=== PATIENT | male | born 1970 | race Caucasian/White ===

== ENCOUNTER → 2016-08-21 | Outpatient (CLI) | payer MEDICARE, OTHER ==
[~2016-08-21] MED LIST: /DOXE100CA PO; /DULO30CA PO; /HCTZ25TA PO; AMBI10TA OR; AMBI12.52 PO; AMIT10TA2 OR; ARTHROTEC PO; ATEN25TA PO; ATEN50TA2 PO; BUSP5TA GT; CLON0.5T PO; COLA100C2 OR; DILA2TAB PO; DOCU100C PO; DULO1CAP2 PO; FLECTOR1.3 TOP; GABA-279 PO; GABA300C3 PO; HYDR25T PO; HYDR4TAB PO; LIDO1OIN2 TOP; LIDO5DIS TOP; LISI20TA PO; LISI20TA5 OR; LISI40TAB PO; LUNE2TAB OR; METH5TAB2 OR; NEUR300C PO; NORV5TAB PO; OXYC10TA12 PO; OXYC5TAB2 PO; REST15CA PO; ROBA750T4 PO; SM I100T PO; SPIR25TA2 PO; TRAM50TA2 PO; TRAZ50TA OR; VICO5TAB PO; VIST50CA PO; VOLT1GEL24 TD; VOLTAREN GEL TOP; ZOLP10TA2 PO; ZOLP12.515 PO; [UNRECOGNIZED DRUG - CODE] PO; [UNRECOGNIZED DRUG - CODE] PO; endocet PO
--- NOTE | 2016-08-22 08:46 | REP ---
Partial lumbar spine series: 25 views. History: Dorsal column stimulator battery placement, lead placement. 20 seconds of fluoroscopy time is reported. Findings: A sequence of 25 fluoroscopically obtained intraprocedural spot radiographs of the lumbar, thoracic and cervical spine document dorsal column stimulator lead placement. Signed by Juan Carlos Parker MD 08/22/2016 10:39 A
--- NOTE | 2016-08-25 01:23 | ECWPNPC ---
PATIENT NAME: WARREN SANTOS : 1970 GENDER: MALE VISIT DATE: 08/21/2016 DISCHARGE DATE: 08/21/16 0845 VISIT LOCKED DATE TIME: PHYSICIAN: MICHAEL MODI RESOURCE: MICHAEL MODI REASON FOR APPOINTMENT 1. STUDY UNDER FLUORO FOR LOCATION OF BATTERY. HISTORY OF PRESENT ILLNESS HISTORY OF PRESENT ILLNESS: PAIN THE PATIENT DESCRIBES THE PAIN... FALL RISK SCREENING: SCREENING :TWO OR MORE FALLS WITH INJURY IN THE PAST YEAR CURRENT MEDICATIONS TAKING CLONAZEPAM 0.5 MG TABLET 1 -2 TABLET ORALLY Q 6 HRS PRN ANXIETY MDD=3, NOTES: TAKING MAX 3 TABS DAILY TAKING VOLTAREN 1 % GEL ONE APPLICATION EXTERNALLY QID TO RIGHT UPPER EXTREMITY TAKING LIDOCAINE 5 % OINTMENT 1 APPLICATION TO AFFECTED AREA NEEDED EXTERNALLY THREE TIMES A DAY TAKING MELATONIN 3 MG TABLET 3 TABLET AT BEDTIME NEEDED WITH FOOD ORALLY ONCE A DAY TAKING GABAPENTIN 300 MG TABLET 1 CAPSULE ORALLY THREE TIMES A DAY TAKING COLACE 100 MG CAPSULE 2 CAPSULE NEEDED ORALLY BID TAKING AMLODIPINE BESYLATE 5 MG TABLET 2 TABLETS ORALLY ONCE A DAY TAKING VISTARIL 25 MG CAPSULE 1 CAPSULE ORALLY EVERY6 HRS PRN ANXIETY MDD=4, NOTES: TAKING MAX 3 DAILY TAKING ZOLPIDEM TARTRATE 10 MG TABLET 1 TABLET AT BEDTIME NEEDED ORALLY AT BEDTIME MDD=1 TAKING ATENOLOL 50 MG TABLET 1 TABLET ORALLY ONCE A DAY TAKING HYDROMORPHONE HCL 4 MG TABLET 1 TABLET ORALLY TAKE ONE TAB Q 6 HRS PRN PAIN MDD=3DD= TAKING OXYCODONE HCL 15 MG TABLET 1-2 TABLET ORALLY EVERY 4 HOURS PRN PAIN MDD=4 TAKING CYMBALTA 30 MG CAPSULE DELAYED RELEASE PARTICLES 1 CAPSULE ORALLY TID MEDICATION LIST REVIEWED AND RECONCILED WITH THE PATIENT PAST MEDICAL HISTORY HTN ANXIETY REFLEX SYMPATHETIC DYSTROPHY/COMPLEX REGIONAL PAIN SYNDROME RIGHT UPPER EXTREMITY SPINAL STENOSIS- LUMBAR ALLERGIES BUSPIRONE HCL: FACIAL RASH, SWELLING, HIVES: ALLERGY SURGICAL HISTORY LAMINECTOMY/DISCECTOMY L1-S1 04/2015 DCS 07/2011 INGUINAL HERNIA REPAIR GROIN LYMPH NODE EXCISION RIGHT HAND- SCREWS/PLATE 2001 ARTHROSCOPIC KNEE SURGERY DENTAL EXTRACTIONS SOCIAL HISTORY GENERAL: TOBACCO USE ARE YOU A:CURRENT SMOKER 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 NEW PATIENT PAIN DIARY TODAY'S VISITNOTES FROM 0-10, WHAT LEVEL IS YOUR PAIN TODAY?0 PAIN CLINIC PFS, CLERGY, PUBLIC HEALTH REFERRALS PFS REFERRAL NEEDED?NO CLERGY REFERRAL NEEDED?NO PUBLIC HEALTH REFERRAL NEEDED?NO WAS THE PROVIDER NOTIFIED OF ANY PERTINENT INFO?NO PFS REFERRAL NEEDED?NO CLERGY REFERRAL NEEDED?NO PUBLIC HEALTH REFERRAL NEEDED?NO WAS THE PROVIDER NOTIFIED OF ANY PERTINENT INFO?NO HOSPITALIZATION/MAJOR DIAGNOSTIC PROCEDURE SURGERIES ACUTE RENAL FAILURE 03/2016 REVIEW OF SYSTEMS CONSTITUTIONAL: ANY CHANGE IN YOUR MEDICAL CONDITION? YES, LEG PAIN AND NUMBNESS WORSE . CHILLS NO . FEVER NO . INFECTION: DO YOU HAVE NEW INFECTIONS? NO . DO YOU HAVE HISTORY OF MRSA? NO . MUSCULOSKELETAL: ANY NEW PATTERNS OF PAIN OR NUMBNESS? YES, LEG PAIN AND NUMBNESS AND WORSE . GASTROENTEROLOGY: ANY NEW CHANGE IN BOWEL CONTROL? NO . GENITOURINARY: ANY NEW CHANGE IN BLADDER CONTROL? NO . IS THERE A CHANCE YOU COULD BE ? NO . HEMATOLOGY/LYMPH: DO YOU TAKE ANY BLOOD THINNERS? (FOR EXAMPLE- COUMADIN, PLAVIX, AGGRENOX, PLATEL, PRADAXA, OR XARELTO) NO . WHEN WAS YOUR LAST DOSE? DATE: TIME: . NEUROLOGY: HAVE YOU FALLEN IN THE PAST 6 MONTHS? NO . ANY NEW EXTREMITY NUMBNESS OR WEAKNESS? NO . CARDIOLOGY: DO YOU HAVE A PACEMAKER OR DEFIBRILLATOR? NO . RESPIRATORY: HAVE YOU BEEN SICK IN THE PAST WEEK? NO . FEVER NO . FLU LIKE SYMPTOMS? NO . COUGH NO . INTEGUMENTARY: DO YOU HAVE ANY RASHES OR OPEN SORES? NO . ALLERGIC/IMMUNO: ARE YOU ALLERGIC TO SHELLFISH OR IV DYE? NO . ANY NEW ALLERGIES? NO . PSYCHIATRIC: DO YOU HAVE THOUGHTS OF HURTING YOURSELF OR SOMEONE ELSE? NO . ARE YOU ABUSED, NEGLECTED, OR IN AN UNSAFE ENVIRONMENT? NO . ENDOCRINOLOGY: ARE YOU DIABETIC? NO . OTHER: DO YOU NEED ANY PRESCRIPTIONS? YES . IF YES, PLEASE LIST: ____ . ANY NEW PROBLEMS WITH YOUR MEDICATIONS? NO . WHEN DID YOU LAST EAT? ____ . WHEN DID YOU LAST DRINK? ____ . WHAT DID YOU LAST DRINK? ____ . NAME OF PERSON DRIVING YOU HOME? ____ . DO YOU HAVE ANY OTHER QUESTIONS OR CONCERNS NO . REVIEWED BY: PROVIDER: . VITAL SIGNS WT 285 LBS, HT 69 IN, BMI 42.08 INDEX, BP 121/75 MM HG, HR 65 /MIN, RR 18 /MIN, TEMP 95.8 F, OXYGEN SAT % 97%, NA INITIALS SC 15:41, REVIEWED BY: MILAGRO. ASSESSMENTS POSTLAMINECTOMY SYNDROME, NOT ELSEWHERE CLASSIFIED - M96.1 (PRIMARY) PROCEDURES PRE-PROCEDURE DIAGNOSIS: POST LAMINECTOMY PAIN SYNDROMEPOST-PROCEDURE DIAGNOSIS: POST LAMINECTOMY PAIN SYNDROMEPROCEDURE: SPINAL COLUMN STIMULATOR STUDY UNDER FLUOROSCOPY SURGEON: DIANA DURONTHESIA: NONECOMPLICATIONS: NONEPRE-PROCEDURE NOTE: 45 YEAR OLD MALE PATIENT WITH HISTORY OF CHRONIC PAIN IN THE LOW BACK AREA. PATIENT CURRENTLY HAS A DORSAL COLUMN STIMULATOR BATTERY AND LEAD PLACEMENT TO HELP WITH HIS PAIN IN HIS RIGHT UPPER EXTREMITY. WITH THE PLAN FOR ANOTHER DORSAL COLUMN STIMULATOR BATTERY AND LEAD PLACEMENT FOR THE PATIENT'S LOW BACK PAIN, I NEED TO EVALUATE THE SPACE OF THE SPINE AND DETERMINE THE OPTIONS TO PROCEED FORWARD. I WENT OVER THE RISK, ALTERNATIVES, AND BENEFITS ASSOCIATED WITH THIS PROCEDURE.PROCEDURE NOTE: THE PATIENT WAS BROUGHT TO THE PROCEDURE ROOM AND PLACED IN THE PRONE POSITION ON THE TABLE. 25 FILMS DONE A-P LATERALLY INDICATES DORSAL COLUMN LEADS ENTER THE SPINE AT T12-L1. DISTAL CONTACTS OF THE LEADS ARE AT THE CERVICAL SPINE. WITH THE DORSAL COLUMN STIMULATOR BATTERY LOCATED IN THE LOW LEFT LUMBAR POSTERIOR AREA. POST-PROCEDURE NOTE: A SEQUENCE OF 25 FLUOROSCOPICALLY OBTAINED INTRAPROCEDURAL SPOT RADIOGRAPHS OF THE LUMBAR, THORACIC AND CERVICAL SPINE DOCUMENT DORSAL COLUMN STIMULATOR LEAD AND BATTERY PLACEMENT. FILMS HAVE BEEN PROCESSED AND SAVED INTO THE PATIENT'S MEDICAL RECORDS. I WILL NEED TO COORDINATE WITH THE PATIENT'S SURGEON TO DETERMINE THE OPTIONS AND ALTERNATIVES ON HOW TO PROCEED WITH THE DORSAL COLUMN STIMULATOR TRIAL AND PERMANENT SURGERY. DIAGNOSTIC IMAGING [facility] FLUORO GUIDANCE (PAIN)[id number] FOLLOW UP 2 WEEKS ELECTRONICALLY SIGNED BY MICHAEL MODI MD ON 08/24/2016 AT 05:43 PM EST DISCLAIMER : THIS IS A VISIT SUMMARY EXTRACTED FROM THE [email or web address] CHART. IT IS NOT A COPY OF THE [email or web address] PROGRESS NOTE. IMMANUEL
== END ==
LOC: M PAIN 15:20
PROVIDERS: ATTEND Anesthesiology
DX: G89.29 Other chronic pain (principal); Z96.89 Presence of other specified functional implants; M96.1 Postlaminectomy syndrome, not elsewhere classified; I10 Essential (primary) hypertension; F32.9 Major depressive disorder, single episode, unspecified; M48.06 Spinal stenosis, lumbar region; G90.511 Complex regional pain syndrome I of right upper limb; F17.200 Nicotine dependence, unspecified, uncomplicated; Z88.8 Allergy status to other drugs, medicaments and biological substances; Z79.891 Long term (current) use of opiate analgesic; Z79.899 Other long term (current) drug therapy

== ENCOUNTER 2016-09-05 17:03 | Emergency (ER) | payer MEDICARE, OTHER ==
[2016-09-05] MEDS ORDERED: ASPIRIN 81 MG CHEW TABLET As Ordered ONE (17:23)
[2016-09-05 17:28] LABS: BASO # 0.2 K/mm3 (0.0-0.2); BASO % 1.3 % (0.0-1.0); EOS # 0.4 K/mm3 (0.0-0.50); EOS % 3.2 % (0.0-3.0); LARGE UNSTAINED CELL # 0.2 K/mm3 (0.0-0.4); LARGE UNSTAINED CELL % 1.6 % (0.0-4.0); LYMPH # 3.5 K/mm3 (1.5-4.5); MEAN CORPUSCULAR HEMOGLOBIN 27.2 pg (27.0-33.0); MEAN CORPUSCULAR HGB CONC 33.4 g/dl (32.0-36.5); MEAN CORPUSCULAR VOLUME 81.4 fl (80.0-96.0); MONO # 0.5 K/mm3 (0.0-0.8); MONO % 4.3 % (0.0-5.0); NEUTROPHILS % 60.5 % (36.0-66.0); PLATELET COUNT, AUTOMATED 293 k/mm3 (150-450); RED CELL DISTRIBUTION WIDTH 14.4 % (11.5-14.5); WHITE BLOOD COUNT 11.5 K/mm3 (4.0-10.0)
[2016-09-05] MEDS ORDERED: MORPHINE 2 MG/ML 1ML SYRINGE As Ordered ONE (17:40)
--- NOTE | 2016-09-05 18:06 | REP ---
Chest x-ray: Two views. History: Chest pain. Findings: A dorsal column stimulator is seen in the thoracic spine terminating in the cervical spine. The lungs are symmetrically aerated and clear. Pleural angles are sharp. Heart size is normal. Pulmonary vasculature is not increased. No significant bony abnormality is seen. Impression: Dorsal column stimulator seen terminating in the cervical spine. No active disease. Signed by Juan Carlos Parker MD 09/05/2016 06:41 P
[2016-09-05 18:42] LABS: ALBUMIN 3.9 GM/DL (3.2-5.2); ALBUMIN/GLOBULIN RATIO 0.95 (1.00-1.93); ALKALINE PHOSPHATASE 70 U/L (45-117); ALT/SGPT 27 U/L (12-78); ANION GAP 9 MEQ/L (8-16); AST/SGOT 16 U/L (15-37); BILIRUBIN,DIRECT 0.1 MG/DL (0.0-0.2); BILIRUBIN,TOTAL 0.3 MG/DL (0.2-1.0); BLOOD UREA NITROGEN 20 MG/DL (7-18); CARBON DIOXIDE LEVEL 25 MEQ/L (21-32); CHLORIDE LEVEL 105 MEQ/L (98-107); CREATININE FOR GFR 0.98 MG/DL (0.70-1.30); GLOMERULAR FILTRATION RATE > 60.0 (>60); GLUCOSE, FASTING 92 MG/DL (70-105); SODIUM LEVEL 139 MEQ/L (136-145)
[2016-09-05] MEDS ORDERED: ISOVUE-370 76% 100ML VIAL (Q9967) As Ordered ONE (18:46)
--- NOTE | 2016-09-05 19:50 | REPUSA ---
CLINICAL HISTORY: CP, exclude PE. TECHNIQUE: Multiple incremental axial, coronal and oblique images are obtained from the thoracic inle t to the upper abdomen. Intravenous contrast material was administered as per pulmonary embolism prot ocol. COMMENTS: Mild biapical emphysema is seen. There is excellent opacification of pulmonary arterial system without evidence for pulmonary embolism . Aorta is of normal caliber without evidence for dissection or aneurysm. There is no evidence of pleural or parenchymal mass. There are no pleural effusions. There is nonspe cific bilateral hilar adenopathy seen, likely reactive process. There is no evidence of bulky hilar or mediastinal lymphadenopathy. The heart and great vessels are within normal limits. Images of the upper abdomen demonstrate no evidence of adrenal mass. The bony structures are free of lytic or blastic lesions. IMPRESSION: Emphysema. No evidence for pulmonary embolism. Nonspecific bilateral hilar adenopathy seen, likely reactive process. Thank you for your kind referral of this patient.
--- NOTE | 2016-09-05 20:00 | REPUSA ---
CLINICAL HISTORY: Abdominal pain. TECHNIQUE: Multiple axial, sagittal and coronal CT images were obtained through the abdomen and pelvi s after administration of intravenous contrast material. COMMENTS: The liver is of uniform attenuation without mass or defect. There is no intra or extrahepatic biliary ductal dilatation. The spleen is normal. The gallbladder is within normal limits. The pancreas is of normal contour and attenuation characteristics. There is no evidence of adrenal mass. Both kidneys demonstrate prompt and equal nephrograms. The kidneys are normal in size, shape and conf iguration. There is no evidence of renal or ureteral mass. No renal or ureteral calculi are identifie d. There is no hydroureter or hydronephrosis. No evidence for appendicitis. There is no bowel wall thickening. No evidence for small or large sadaf l obstruction. There is no evidence of abdominal ascites or lymphadenopathy. There is no evidence of intrinsic or extrinsic bladder mass. There is no pelvic ascites or lymphadeno ariel. Images of the lung bases show no evidence of pleural or parenchymal mass. There are no pleural effusi ons. The bony structures are free of lytic or blastic lesions. Intraspinal catheter is noted with leads t erminating at the thoracic levels. IMPRESSION: No evidence of acute abdominal or pelvic pathology. Thank you for your kind referral of this patient.
--- NOTE | 2016-09-05 20:29 | EDDOCDS ---
Physician Documentation [facility] Name: José Miguel Vasquez Age: 45 yrs Sex: Male : 1970 Arrival Date: 09/05/2016 Time: 17:03 Bed 9 Private MD: Vimal Harry Disposition: 09/05 20:09 Critical Care: Critical care not applicable. pc Disposition: 09/05/16 20:16 Discharged to Home/Self Care. Impression: Chest pain, unspecified - labs, EKG and CTs nondiagnostic, Complex regional pain syndrome I, unspecified. - Condition is Stable. - Discharge Instructions: Nonspecific Chest Pain. - Medication Reconciliation, Local Pharmacy Hours form. - Follow up: Vimal Harry MD; When: Call to arrange an appointment; Reason: Continuance of care. Follow up: Michele Olson; When: As previously arranged; Reason: Continuance of care. Follow up: Kirill Apple MD; When: Call to arrange an appointment; Reason: Further diagnostic work-up, To establish care. - Problem is new. - Symptoms have improved. Historical: - Allergies: BuSpar; - Home Meds: 1. atenolol 50 mg Oral tab 1 tab once daily 2. hydromorphone 4 mg Oral tab 1 tab every 6 hours 3. oxycodone 15 mg Oral tab 1 tab every 4 hours as needed 4. Cymbalta 30 mg Oral cpDR three times a day 5. zolpidem 10 mg Oral tab 1 tab once daily 6. gabapentin 300 mg Oral cap 1 cap 3 times per day 7. Colace 100 mg oral cap 2 caps 2 times per day 8. amlodipine 5 mg Oral tab 2 tabs once daily 9. Vistaril 25 mg Oral cap 1 cap every 6 hours as needed 10. Voltaren 1 % topical gel 4 times per day 11. lidocaine 5 % Topical oint four times a day - PMHx: Chronic Low Back Pain; complex regional pain syndrome; Hypertension; RSD; - PSHx: Orthopedic Surgery; Laminectomy. lumbar; - Social history: Smoking status: Patient uses tobacco products, heavy tobacco smoker. No barriers to communication noted, The patient speaks fluent Tajik, Speaks appropriately for age. - Family history: Not pertinent. - : The pt / caregiver states he / she is not on anticoagulants. Home medication list is obtained from the patient. - Exposure Risk Screening:: None identified. Vital Signs: 17:05 BP 162 / 87; Pulse 62; Resp 18 S; Temp 98.1(O); Pulse Ox 99% on R/A; Weight 127.01 kg / gr2 280.01 lbs (R); Height 5 ft. 10 in. (177.80 cm) (R); Pain 7/10; 17:22 BP 224 / 105 (auto/); dsf 17:24 Pulse 56 MON; Pulse Ox 95% ; dsf 17:27 BP 172 / 86 (auto/); dsf 17:27 Pulse 60 MON; Pulse Ox 97% ; dsf 17:37 BP 146 / 79 (auto/); dsf 17:37 Pulse 54 MON; Pulse Ox 98% ; dsf 17:52 BP 133 / 77 (auto/); dsf 17:55 Pulse 54 MON; Pulse Ox 95% ; dsf 18:07 BP 127 / 73 (auto/); dsf 18:08 Pulse 54 MON; Pulse Ox 93% ; dsf 18:10 Pain 7/10; dsf 18:22 BP 139 / 78 (auto/); dsf 18:23 Pulse 50 MON; Pulse Ox 94% ; dsf 18:37 BP 136 / 77 (auto/); dsf 18:38 Pulse 52 MON; Pulse Ox 92% ; dsf 19:07 BP 128 / 70 (auto/); Resp 18 S; af2 19:08 Pulse 52 MON; Pulse Ox 96% on R/A; af2 19:37 BP 131 / 82 (auto/); af2 19:38 Pulse 48 MON; Pulse Ox 95% ; af2 19:52 BP 141 / 81 (auto/); af2 19:53 Pulse 48 MON; Pulse Ox 95% ; af2 20:07 BP 137 / 87 (auto/); af2 20:08 Pulse 48 MON; Resp 18 S; Temp 97.6(O); Pulse Ox 97% on R/A; af2 17:05 Body Mass Index 40.18 (127.01 kg, 177.80 cm) gr2 MDM: 17:12 Aspirin Chewable Tablet 324 mg PO once ordered. fg 17:12 Engineer Technician/Pulse Ox/q 30 min VS ordered. fg 17:12 IV Saline Lock ordered. fg 17:12 Rhythm Strip to chart ordered. fg 17:12 Undress patient appropriately for examination ordered. fg 17:12 ECG WITH READING ER PHYS+CARDIAG ordered. EDMS 17:13 B-Type Natiuretic Peptide Ordered. EDMS 17:13 Basic Metabolic Profile Ordered. EDMS 17:13 CBC with Diff Ordered. EDMS 17:13 Cardiac Injury Profile Ordered. EDMS 17:13 Troponin Ordered. EDMS 17:15 Chest, 2 View (pa\E\lat) Ordered. EDMS 17:32 morphine 2 mg IVP once ordered. fg 17:34 CT Chest Angio R/O PE Ordered. EDMS 17:34 CT ABD & PELVIS: IV Contrast Only Ordered. EDMS 17:49 LIPASE Ordered. EDMS 17:49 LIVER PROFILE Ordered. EDMS 19:16 Basic Metabolic Profile Reviewed. pc 19:16 CBC with Diff Reviewed. pc 19:16 LIVER PROFILE Reviewed. pc 19:16 B-Type Natiuretic Peptide Reviewed. pc 19:16 Cardiac Injury Profile Reviewed. pc 19:16 Troponin Reviewed. pc 19:16 LIPASE Reviewed. pc 19:16 Chest, 2 View (pa\E\lat) Reviewed. pc 19:39 Financial registration complete. zo 19:41 [facility] [place] Payment Agreement was scanned into [employer] and attached to record. zo 20:09 Test interpretation: interpreted by Radiologist and personally reviewed, Abdomen/Pelvis pc CT; no acute disease, Chest CT; no PE, reactive bilateral hilar adenopathy. The patient has been re-examined and re-evaluated. The patient's symptoms have mildly improved after treatment. Disposition: The historical points, examination findings, and any diagnostic results supporting the provided diagnosis, were discussed with the patient or legal guardian. The need for outpatient follow up with the provider listed on their discharge instructions was discussed. They were encouraged to return to [facility], or the nearest ED, if symptoms worsen/persist, or for any other questions/concerns. Administered Medications: 17:30 Drug: Aspirin 324 mg [aspirin 81 mg chewable tablet (4 tabs)] Route: PO; ms18 17:43 Drug: morphine 2 mg [morphine 2 mg/mL intravenous cartridge (1 mL)] Route: IVP; Site: dsf left antecubital; 18:10 Follow up: Pain 7/10 Adult; see charted VS dsf Signatures: Dispatcher [employer] EDMS Usama Palacios MD MD pc Barney, Michael B RN RN [id number] Mor Begum AmberRN RN af2 Kimmie Vogel MD MD fg Anika Singleton RN, Mallory RN [id number] The chart was reviewed and I authenticate all verbal orders and agree with the evaluation and treatment provided.Corrections: (The following items were deleted from the chart) 17:47 17:43 LIPASE+LAB ordered. EDMS EDMS 17:47 17:43 LIVER PROFILE+LAB ordered. EDMS EDMS Attachments: 19:41 [facility] [place] Payment Agreement zo [id number]
--- NOTE | 2016-09-05 20:29 | EDDOCDS ---
Nurse's Notes [facility] Name: José Miguel Vasquez Age: 45 yrs Sex: Male : 1970 Arrival Date: 09/05/2016 Time: 17:03 Bed 9 Private MD: Vimal Harry Diagnosis: Chest pain, unspecified-labs, EKG and CTs nondiagnostic;Complex regional pain syndrome I, unspecified Presentation: 09/05 17:10 Presenting complaint: Patient states: Swelling in legs left arm and back, chest mlb1 tightness diaphoresis and nausea began 8 days ago. No acute neurological deficit is noted. Pre-hospital glucose is not applicable to this patient. Adult Sepsis Screening: The patient does not have new or worsening altered mentation. Patient's respiratory rate is less than 22. Systolic blood pressure is greater than 100. Patient has a qSOFA score of 0- Negative Sepsis Screen. Suicide/Homicide risk assessment- the patient denies having any suicidal and/or homicidal ideations and does not present with any other emotional, behavioral or mental health complaints. Status: Patient is not a medical services manager or dependent. Transition of care: patient was not received from another setting of care. 17:10 Acuity: TODD Level 2 mlb1 17:10 Method Of Arrival: Walkin/Carried/Asstd mlb1 20:27 The last date and time the patient was known to be well was was at an unknown time on af2 an unknown date. Triage Assessment: 17:19 General: Appears in no apparent distress, Behavior is anxious, cooperative. Pain: mlb1 Location: chest Quality of pain is described as tightness Unable to use pain scale. Does not appear to understand pain scale. 20:28 The onset of the patients symptoms was at an unknown time. HIV screening NA for this af2 visit Offered previously. Neurological: Reports. Neurological: No deficits noted. 20:28 Neurological: Level of Consciousness is awake, alert. af2 Historical: - Allergies: BuSpar; - Home Meds: 1. atenolol 50 mg Oral tab 1 tab once daily 2. hydromorphone 4 mg Oral tab 1 tab every 6 hours 3. oxycodone 15 mg Oral tab 1 tab every 4 hours as needed 4. Cymbalta 30 mg Oral cpDR three times a day 5. zolpidem 10 mg Oral tab 1 tab once daily 6. gabapentin 300 mg Oral cap 1 cap 3 times per day 7. Colace 100 mg oral cap 2 caps 2 times per day 8. amlodipine 5 mg Oral tab 2 tabs once daily 9. Vistaril 25 mg Oral cap 1 cap every 6 hours as needed 10. Voltaren 1 % topical gel 4 times per day 11. lidocaine 5 % Topical oint four times a day - PMHx: Chronic Low Back Pain; complex regional pain syndrome; Hypertension; RSD; - PSHx: Orthopedic Surgery; Laminectomy. lumbar; - Social history: Smoking status: Patient uses tobacco products, heavy tobacco smoker. No barriers to communication noted, The patient speaks fluent Singaporean, Speaks appropriately for age. - Family history: Not pertinent. - : The pt / caregiver states he / she is not on anticoagulants. Home medication list is obtained from the patient. - Exposure Risk Screening:: None identified. Screenin:24 Screening information is obtained from the patient. Fall risk: No risks identified. af2 Assistance ADL's: requires no assistance with activities of daily living. Abuse/DV Screen: The patient / caregiver reports he/she is: not in a situation that causes fear, pain or injury. Nutritional screening: No deficits noted. Advance Directives: Further advance directive information is declined. home support is adequate. Assessment: 17:43 General: Appears in no apparent distress, Behavior is appropriate for age, cooperative. dsf Pain: Location: back and right arm Pain currently is 7 out of 10 on a pain scale. Quality of pain is described as burning. Neurological: Level of Consciousness is awake, alert, Oriented to person, place, time. Cardiovascular: Capillary refill < 3 seconds Heart tones S1 S2 present Rhythm is sinus rhythm No ectopy. Chest pain is described as Pain is 3 out of 10 on a pain scale. quality is pressure, is located in substernal area radiates Does not radiate. Respiratory: Airway is patent Respiratory effort is even, unlabored, Respiratory pattern is regular, symmetrical, Breath sounds are clear bilaterally. GI: Abdomen is non- distended obese, Bowel sounds present X 4 quads. Abd is soft and non tender X 4 quads. Denies nausea, vomiting, pain. Derm: Skin is pink, warm & dry. Musculoskeletal: cloth sock over right forearm. 18:43 Adult Sepsis Screening: The patient does not have new or worsening altered mentation. dsf Patient's respiratory rate is less than 22. Systolic blood pressure is greater than 100. Patient has a qSOFA score of 0- Negative Sepsis Screen. General: Appears in no apparent distress, comfortable, Behavior is appropriate for age, cooperative. Pain: Location: right arm and back Pain currently is 7 out of 10 on a pain scale. Neurological: Level of Consciousness is awake, alert. Cardiovascular: Capillary refill < 3 seconds. Respiratory: Airway is patent Respiratory effort is even, unlabored, Respiratory pattern is regular, symmetrical. Derm: Skin is pink, warm & dry. 19:19 General: Appears in no apparent distress, comfortable, Behavior is appropriate for age, af2 cooperative. Pain: Location: right arm and back and chest Pain currently is 6 out of 10 on a pain scale. Neurological: Level of Consciousness is awake, alert, Oriented to person, place, time. Cardiovascular: Rhythm is sinus bradycardia. Respiratory: Airway is patent Respiratory effort is even, unlabored. Derm: Skin is pink, warm & dry. Vital Signs: 17:05 BP 162 / 87; Pulse 62; Resp 18 S; Temp 98.1(O); Pulse Ox 99% on R/A; Weight 127.01 kg gr2 (R); Height 5 ft. 10 in. (177.80 cm) (R); Pain 7/10; 17:22 BP 224 / 105 (auto/); dsf 17:24 Pulse 56 MON; Pulse Ox 95% ; dsf 17:27 BP 172 / 86 (auto/); dsf 17:27 Pulse 60 MON; Pulse Ox 97% ; dsf 17:37 BP 146 / 79 (auto/); dsf 17:37 Pulse 54 MON; Pulse Ox 98% ; dsf 17:52 BP 133 / 77 (auto/); dsf 17:55 Pulse 54 MON; Pulse Ox 95% ; dsf 18:07 BP 127 / 73 (auto/); dsf 18:08 Pulse 54 MON; Pulse Ox 93% ; dsf 18:10 Pain 7/10; dsf 18:22 BP 139 / 78 (auto/); dsf 18:23 Pulse 50 MON; Pulse Ox 94% ; dsf 18:37 BP 136 / 77 (auto/); dsf 18:38 Pulse 52 MON; Pulse Ox 92% ; dsf 19:07 BP 128 / 70 (auto/); Resp 18 S; af2 19:08 Pulse 52 MON; Pulse Ox 96% on R/A; af2 19:37 BP 131 / 82 (auto/); af2 19:38 Pulse 48 MON; Pulse Ox 95% ; af2 19:52 BP 141 / 81 (auto/); af2 19:53 Pulse 48 MON; Pulse Ox 95% ; af2 20:07 BP 137 / 87 (auto/); af2 20:08 Pulse 48 MON; Resp 18 S; Temp 97.6(O); Pulse Ox 97% on R/A; af2 17:05 Body Mass Index 40.18 (127.01 kg, 177.80 cm) gr2 Vitals: 17:05 Log In Time: September 05, 2016 at 17:05. RN notified that patient meets Red Flag gr2 criteria. 20:28 Glucose Measurement n/a. af2 ED Course: 17:04 Patient visited by Vinicio Monroy. gr2 17:04 Patient moved to Waiting gr2 17:05 Vimal Harry MD is Private Physician. gr2 17:07 Patient visited by Vinicio Monroy. gr2 17:07 Patient moved to Pre RCE gr2 17:10 Jenifer Flannery,RN is Primary Nurse. mlb1 17:10 Patient moved to 9 mlb1 17:11 Kimmie Vogel MD is Attending Physician. fg 17:12 Triage Initiated mlb1 17:20 Patient visited by Dino Blas RN. mlb1 17:21 EKG done. (by ED staff). Reviewed by Kimmie Vogel MD. jrd 17:22 Patient visited by Zachary Milian PCA. jrd 17:22 Primary Nurse role handed off by Jenifer Flannery RN [facility] 17:22 EKG done. (by ED staff). Reviewed by Kimmie Vogel MD. jrd 17:22 B-Type Natiuretic Peptide Sent. dsf 17:22 Basic Metabolic Profile Sent. dsf 17:22 CBC with Diff Sent. dsf 17:22 Cardiac Injury Profile Sent. dsf 17:22 Troponin Sent. dsf 17:22 Inserted saline lock: 18 gauge in left antecubital area The patient tolerated the dsf procedure well. 17:26 Patient visited by Zachary Milian PCA. jrd 17:31 Patient visited by Kimmie Vogel MD. fg 17:33 Patient moved to Radiology dsf 17:45 Patient visited by Anika Singleton,YANA. dsf 17:45 Patient moved to 9 dsf 18:12 Chest, 2 View (pa\E\lat) Returned. EDMS 18:45 Patient visited by Anika Singleton RN. dsf 18:[address] dsf 18:58 Patient moved to 9 dsf 19:01 Jenifer FlanneryRN is Primary Nurse. af2 19:01 Attending Physician role handed off by Kimmie Vogel MD pc 19:01 Usama Palacios MD is Attending Physician. pc 19:20 Patient visited by Jenifer Flannery RN. af2 19:41 [facility] [place] Payment Agreement was scanned into [employer] and attached to record. zo 19:56 Patient name changed from José Miguel\S\\S\Christina\S\ to José Miguel\S\ \S\Christina. EDMS 19:58 Patient visited by Jenifer Flannery RN. af2 20:00 Patient visited by Jenifer Flannery RN. af2 20:13 CT Chest Angio R/O PE Returned. EDMS 20:13 CT ABD & PELVIS: IV Contrast Only Returned. EDMS 20:15 Vimal Harry MD is Referral Physician. pc 20:15 Kirill Apple MD is Referral Physician. pc 20:15 Michele Olson is Referral Physician. pc 20:26 Discontinued IV lock intact, bleeding controlled, pressure dressing applied, No af2 redness/swelling at site. No procedures done that require assistance. 20:28 The patient / caregiver is instructed regarding the plan of care and ED course. af2 Administered Medications: 17:30 Drug: Aspirin 324 mg [aspirin 81 mg chewable tablet (4 tabs)] Route: PO; ms18 17:43 Drug: morphine 2 mg [morphine 2 mg/mL intravenous cartridge (1 mL)] Route: IVP; Site: dsf left antecubital; 18:10 Follow up: Pain 7/10 Adult; see charted VS dsf Intake: Order Results: Lab Order: B-Type Natiuretic Peptide; SPEC'M 09/05/16 17:19 Test: BRAIN NATRIURETIC PEPTIDE; Value: 28.9; Range: <100; Units: PG/ML; Status: F Lab Order: Basic Metabolic Profile; SPEC'M 09/05/16 17:54 Test: GLUCOSE, FASTING; Value: 92; Range: 70-105; Units: MG/DL; Status: F Test: BLOOD UREA NITROGEN; Value: 20; Range: 7-18; Abnormal: Above high normal; Units: MG/DL; Status: F Test: CREATININE FOR GFR; Value: 0.98; Range: 0.70-1.30; Units: MG/DL; Status: F Test: GLOMERULAR FILTRATION RATE; Value: > 60.0; Range: >60; Status: F Test: SODIUM LEVEL; Value: 139; Range: 136-145; Units: MEQ/L; Status: F Test: POTASSIUM SERUM; Value: 4.0; Range: 3.5-5.1; Units: MEQ/L; Status: F Test: CHLORIDE LEVEL; Value: 105; Range: 98-107; Units: MEQ/L; Status: F Test: CARBON DIOXIDE LEVEL; Value: 25; Range: 21-32; Units: MEQ/L; Status: F Test: ANION GAP; Value: 9; Range: 8-16; Units: MEQ/L; Status: F Test: CALCIUM LEVEL; Value: 9.0; Range: 8.5-10.1; Units: MG/DL; Status: F Test Note: ; Units are mL/min/1.73 m2 Chronic Kidney Disease Staging per NKF: Stage I & II GFR >=60 Normal to Mildly Decreased Stage III GFR 30-59 Moderately Decreased Stage IV GFR 15-29 Severely Decreased Stage V GFR <15 Very Little GFR Left ESRD GFR <15 on SIGNING AGENT Lab Order: CBC with Diff; SPEC'M 09/05/16 17:19 Test: WHITE BLOOD COUNT; Value: 11.5; Range: 4.0-10.0; Abnormal: Above high normal; Units: K/mm3; Status: F Test: RED BLOOD COUNT; Value: 5.91; Range: 4.30-6.10; Units: M/mm3; Status: F Test: HEMOGLOBIN; Value: 16.1; Range: 14.0-18.0; Units: g/dl; Status: F Test: HEMATOCRIT; Value: 48.1; Range: 42.0-52.0; Units: %; Status: F Test: MEAN CORPUSCULAR VOLUME; Value: 81.4; Range: 80.0-96.0; Units: fl; Status: F Test: MEAN CORPUSCULAR HEMOGLOBIN; Value: 27.2; Range: 27.0-33.0; Units: pg; Status: F Test: MEAN CORPUSCULAR HGB CONC; Value: 33.4; Range: 32.0-36.5; Units: g/dl; Status: F Test: RED CELL DISTRIBUTION WIDTH; Value: 14.4; Range: 11.5-14.5; Units: %; Status: F Test: PLATELET COUNT, AUTOMATED; Value: 293; Range: 150-450; Units: k/mm3; Status: F Test: NEUTROPHILS %; Value: 60.5; Range: 36.0-66.0; Units: %; Status: F Test: LYMPH %; Value: 29.0; Range: 24.0-44.0; Units: %; Status: F Test: MONO %; Value: 4.3; Range: 0.0-5.0; Units: %; Status: F Test: EOS %; Value: 3.2; Range: 0.0-3.0; Abnormal: Above high normal; Units: %; Status: F Test: BASO %; Value: 1.3; Range: 0.0-1.0; Abnormal: Above high normal; Units: %; Status: F Test: LARGE UNSTAINED CELL %; Value: 1.6; Range: 0.0-4.0; Units: %; Status: F Test: NEUTROPHILS #; Value: 7.0; Range: 1.8-7.7; Units: K/mm3; Status: F Test: LYMPH #; Value: 3.5; Range: 1.5-4.5; Units: K/mm3; Status: F Test: MONO #; Value: 0.5; Range: 0.0-0.8; Units: K/mm3; Status: F Test: EOS #; Value: 0.4; Range: 0.0-0.50; Units: K/mm3; Status: F Test: BASO #; Value: 0.2; Range: 0.0-0.2; Units: K/mm3; Status: F Test: LARGE UNSTAINED CELL #; Value: 0.2; Range: 0.0-0.4; Units: K/mm3; Status: F Lab Order: Cardiac Injury Profile; SPEC'M 09/05/16 17:54 Test: CPK CREATINE PHOSPHOKINASE; Value: 278; Range: 39-308; Units: U/L; Status: F Test: CK-MB VALUE MASS; Value: 2.9; Range: 0.0-3.6; Units: NG/ML; Status: F Test: MB/CK RELATIVE INDEX; Value: 1.04; Range: < OR =4; Status: F Test Note: ; DIAGNOSIS CRITERIA MMB ng/ml Relative Index (RI) NON-AMI < or = 5 N/A SINHA ZONE > 5 < or = 4 AMI > 5 > 4 Lab Order: Troponin; [facility] 09/05/16 17:54 Test: TROPONIN I; Value: < 0.02; Range: < 0.10; Units: NG/ML; Status: F Test Note: ; Troponin I Reference Interval for [place] LOCI: 99th Percentile= 0.00-0.045 ng/ml Risk Stratification: <= 0.10 ng/ml Decreased Risk for Adverse Clinical Events. 0.10-1.50 ng/ml Increased Risk for Adverse Clinical Events. Evaluation of additional criterion and/or repeat testing in 2-6 hours is suggested to rule out myocardial damage. >= 1.50 ng/ml Indicative of Myocardial Injury. Lab Order: LIPASE; SPEC'M 09/05/16 17:54 Test: LIPASE; Value: 321; Range: 73-393; Units: U/L; Status: F Lab Order: LIVER PROFILE; [facility] 09/05/16 17:54 Test: AST/SGOT; Value: 16; Range: 15-37; Units: U/L; Status: F Test: ALT/SGPT; Value: 27; Range: 12-78; Units: U/L; Status: F Test: ALKALINE PHOSPHATASE; Value: 70; Range: 45-117; Units: U/L; Status: F Test: BILIRUBIN,TOTAL; Value: 0.3; Range: 0.2-1.0; Units: MG/DL; Status: F Test: BILIRUBIN,DIRECT; Value: 0.1; Range: 0.0-0.2; Units: MG/DL; Status: F Test: TOTAL PROTEIN; Value: 8.0; Range: 6.4-8.2; Units: GM/DL; Status: F Test: ALBUMIN; Value: 3.9; Range: 3.2-5.2; Units: GM/DL; Status: F Test: ALBUMIN/GLOBULIN RATIO; Value: 0.95; Range: 1.00-1.93; Abnormal: Below low normal; Status: F Radiology Order: Chest, 2 View (pa\E\lat) Test: Chest, 2 View (pa\E\lat) REASON FOR EXAMINATION: Chest Pain; Chest x-ray: Two views.; ; History: Chest pain.; ; Findings: A dorsal column stimulator is seen in the thoracic spine terminating; in the cervical spine. The lungs are symmetrically aerated and clear. Pleural; angles are sharp. Heart size is normal. Pulmonary vasculature is not increased.; No significant bony abnormality is seen.; ; Impression:; ; Dorsal column stimulator seen terminating in the cervical spine. No active; disease.; ; ; Signed by; Juan Carlos Parker MD 09/05/2016 06:41 P; Radiology Order: CT Chest Angio R/O PE Test: CT Chest Angio R/O PE REASON FOR EXAMINATION: Chest Pain; ; CLINICAL HISTORY: CP, exclude PE.; TECHNIQUE: Multiple incremental axial, coronal and oblique images are obtained from the thoracic inle; t to the upper abdomen. Intravenous contrast material was administered as per pulmonary embolism prot; ocol.; COMMENTS:; Mild biapical emphysema is seen.; There is excellent opacification of pulmonary arterial system without evidence for pulmonary embolism; . Aorta is of normal caliber without evidence for dissection or aneurysm.; There is no evidence of pleural or parenchymal mass. There are no pleural effusions. There is nonspe; cific bilateral hilar adenopathy seen, likely reactive process. There is no evidence of bulky hilar; or mediastinal lymphadenopathy. The heart and great vessels are within normal limits.; Images of the upper abdomen demonstrate no evidence of adrenal mass.; The bony structures are free of lytic or blastic lesions.; IMPRESSION:; Emphysema.; No evidence for pulmonary embolism.; Nonspecific bilateral hilar adenopathy seen, likely reactive process.; Thank you for your kind referral of this patient.; ; Radiology Order: CT ABD & PELVIS: IV Contrast Only Test: CT ABD & PELVIS: IV Contrast Only REASON FOR EXAMINATION: Abdomen Pain; ; CLINICAL HISTORY: Abdominal pain.; TECHNIQUE: Multiple axial, sagittal and coronal CT images were obtained through the abdomen and pelvi; s after administration of intravenous contrast material.; COMMENTS:; The liver is of uniform attenuation without mass or defect. There is no intra or extrahepatic biliary; ductal dilatation. The spleen is normal. The gallbladder is within normal limits. The pancreas is of; normal contour and attenuation characteristics. There is no evidence of adrenal mass.; Both kidneys demonstrate prompt and equal nephrograms. The kidneys are normal in size, shape and conf; iguration. There is no evidence of renal or ureteral mass. No renal or ureteral calculi are identifie; d. There is no hydroureter or hydronephrosis.; No evidence for appendicitis. There is no bowel wall thickening. No evidence for small or large sadaf; l obstruction. There is no evidence of abdominal ascites or lymphadenopathy.; There is no evidence of intrinsic or extrinsic bladder mass. There is no pelvic ascites or lymphadeno; ariel.; Images of the lung bases show no evidence of pleural or parenchymal mass. There are no pleural effusi; ons.; The bony structures are free of lytic or blastic lesions. Intraspinal catheter is noted with leads t; erminating at the thoracic levels.; IMPRESSION:; No evidence of acute abdominal or pelvic pathology.; Thank you for your kind referral of this patient.; ; Outcome: 20:16 Discharge ordered by Provider. pc 20:26 Discharge Assessment: Patient awake, alert and oriented x 3. No cognitive and/or af2 functional deficits noted. Patient verbalized understanding of disposition instructions. patient administered narcotics - yes. Pt provided with safe discharge. The following High Risk Discharge criteria are identified: None. Discharged to home ambulatory, with significant other. Condition: stable. Discharge instructions given to patient, Instructed on discharge instructions, follow up and referral plans. Demonstrated understanding of instructions, Pt was receptive of discharge instructions/ teaching. CT Study completed. Property :Personal belongings accompany Pt. 20:28 Patient left the ED. af2 Signatures: Dispatcher [employer] EDMS Usama Palacios MD MD pc Peters, Mary, RN RN Dino Sparrow, RN RN mlb1 Mor Begum Desiree,RN RN Vinicio Cottrell2 Carol Hamm,RN RN [id number] Zachary Milian, CASSANDRA FIRST AID TEACHER d Jenifer Flannery,RN RN af2 Kimmie Vogel MD MD fg AILEEND
--- NOTE | 2016-09-06 07:26 | ECGEPIP ---
Stationary ECG Study [facility] - ED Test Date: 2016-09-05 Pat Name: WARREN SANTOS Department: Room: - Gender: M Informatics Nurse Specialist: alberto : 1970 Requested By: PRIYANKA Traore Order Number: [id number] Reading MD: Griselda Villa Measurements Intervals [place] Rate: 54 P: 48 WI: 172 QRS: 57 QRSD: 102 T: 43 QT: 419 QTc: 398 Interpretive Statements SINUS BRADYCARDIA POSSIBLE RIGHT VENTRICULAR CONDUCTION DELAY EARLY REPOLARIZATION, CLINICAL CORRELATION SIMILAR 02/16/16 Electronically Signed On 09-06-2016 7:26:13 EST by Griselda Villa
--- NOTE | 2016-09-07 21:30 | EDDOCDS ---
Physician Documentation [facility] Name: José Miguel Vasquez Age: 45 yrs Sex: Male : 1970 Arrival Date: 09/05/2016 Time: 17:03 Bed 9 Private MD: Vimal Harry Disposition: 09/05 20:09 Critical Care: Critical care not applicable. pc Disposition: 09/05/16 20:16 Discharged to Home/Self Care. Impression: Chest pain, unspecified - labs, EKG and CTs nondiagnostic, Complex regional pain syndrome I, unspecified. - Condition is Stable. - Discharge Instructions: Nonspecific Chest Pain. - Medication Reconciliation, Local Pharmacy Hours form. - Follow up: Vimal Harry MD; When: Call to arrange an appointment; Reason: Continuance of care. Follow up: Michele Olson; When: As previously arranged; Reason: Continuance of care. Follow up: Kirill Apple MD; When: Call to arrange an appointment; Reason: Further diagnostic work-up, To establish care. - Problem is new. - Symptoms have improved. Historical: - Allergies: BuSpar; - Home Meds: 1. atenolol 50 mg Oral tab 1 tab once daily 2. hydromorphone 4 mg Oral tab 1 tab every 6 hours 3. oxycodone 15 mg Oral tab 1 tab every 4 hours as needed 4. Cymbalta 30 mg Oral cpDR three times a day 5. zolpidem 10 mg Oral tab 1 tab once daily 6. gabapentin 300 mg Oral cap 1 cap 3 times per day 7. Colace 100 mg oral cap 2 caps 2 times per day 8. amlodipine 5 mg Oral tab 2 tabs once daily 9. Vistaril 25 mg Oral cap 1 cap every 6 hours as needed 10. Voltaren 1 % topical gel 4 times per day 11. lidocaine 5 % Topical oint four times a day - PMHx: Chronic Low Back Pain; complex regional pain syndrome; Hypertension; RSD; - PSHx: Orthopedic Surgery; Laminectomy. lumbar; - Social history: Smoking status: Patient uses tobacco products, heavy tobacco smoker. No barriers to communication noted, The patient speaks fluent Hebrew, Speaks appropriately for age. - Family history: Not pertinent. - : The pt / caregiver states he / she is not on anticoagulants. Home medication list is obtained from the patient. - Exposure Risk Screening:: None identified. Vital Signs: 17:05 BP 162 / 87; Pulse 62; Resp 18 S; Temp 98.1(O); Pulse Ox 99% on R/A; Weight 127.01 kg / gr2 280.01 lbs (R); Height 5 ft. 10 in. (177.80 cm) (R); Pain 7/10; 17:22 BP 224 / 105 (auto/); dsf 17:24 Pulse 56 MON; Pulse Ox 95% ; dsf 17:27 BP 172 / 86 (auto/); dsf 17:27 Pulse 60 MON; Pulse Ox 97% ; dsf 17:37 BP 146 / 79 (auto/); dsf 17:37 Pulse 54 MON; Pulse Ox 98% ; dsf 17:52 BP 133 / 77 (auto/); dsf 17:55 Pulse 54 MON; Pulse Ox 95% ; dsf 18:07 BP 127 / 73 (auto/); dsf 18:08 Pulse 54 MON; Pulse Ox 93% ; dsf 18:10 Pain 7/10; dsf 18:22 BP 139 / 78 (auto/); dsf 18:23 Pulse 50 MON; Pulse Ox 94% ; dsf 18:37 BP 136 / 77 (auto/); dsf 18:38 Pulse 52 MON; Pulse Ox 92% ; dsf 19:07 BP 128 / 70 (auto/); Resp 18 S; af2 19:08 Pulse 52 MON; Pulse Ox 96% on R/A; af2 19:37 BP 131 / 82 (auto/); af2 19:38 Pulse 48 MON; Pulse Ox 95% ; af2 19:52 BP 141 / 81 (auto/); af2 19:53 Pulse 48 MON; Pulse Ox 95% ; af2 20:07 BP 137 / 87 (auto/); af2 20:08 Pulse 48 MON; Resp 18 S; Temp 97.6(O); Pulse Ox 97% on R/A; af2 17:05 Body Mass Index 40.18 (127.01 kg, 177.80 cm) gr2 MDM: 17:12 Aspirin Chewable Tablet 324 mg PO once ordered. 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 fg 17:12 IV Saline Lock ordered. fg 17:12 Rhythm Strip to chart ordered. fg 17:12 Undress patient appropriately for examination ordered. fg 17:12 ECG WITH READING ER PHYS+CARDIAG ordered. EDMS 17:13 B-Type Natiuretic Peptide Ordered. EDMS 17:13 Basic Metabolic Profile Ordered. EDMS 17:13 CBC with Diff Ordered. EDMS 17:13 Cardiac Injury Profile Ordered. EDMS 17:13 Troponin Ordered. EDMS 17:15 Chest, 2 View (pa\E\lat) Ordered. EDMS 17:32 morphine 2 mg IVP once ordered. fg 17:34 CT Chest Angio R/O PE Ordered. EDMS 17:34 CT ABD & PELVIS: IV Contrast Only Ordered. EDMS 17:49 LIPASE Ordered. EDMS 17:49 LIVER PROFILE Ordered. EDMS 19:16 Basic Metabolic Profile Reviewed. pc 19:16 CBC with Diff Reviewed. pc 19:16 LIVER PROFILE Reviewed. pc 19:16 B-Type Natiuretic Peptide Reviewed. pc 19:16 Cardiac Injury Profile Reviewed. pc 19:16 Troponin Reviewed. pc 19:16 LIPASE Reviewed. pc 19:16 Chest, 2 View (pa\E\lat) Reviewed. pc 19:39 Financial registration complete. zo 19:41 [facility] Payment Agreement was scanned into [employer] and attached to record. zo 20:09 Test interpretation: interpreted by Radiologist and personally reviewed, Abdomen/Pelvis pc CT; no acute disease, Chest CT; no PE, reactive bilateral hilar adenopathy. The patient has been re-examined and re-evaluated. The patient's symptoms have mildly improved after treatment. Disposition: The historical points, examination findings, and any diagnostic results supporting the provided diagnosis, were discussed with the patient or legal guardian. The need for outpatient follow up with the provider listed on their discharge instructions was discussed. They were encouraged to return to [facility], or the nearest ED, if symptoms worsen/persist, or for any other questions/concerns. 09/06 11:29 T-Sheet-- Draft Copy was scanned into [employer] and attached to record. gb 11:29 ECG/EKG was scanned into [employer] and attached to record. gb Administered Medications: 09/05 17:30 Drug: Aspirin 324 mg [aspirin 81 mg chewable tablet (4 tabs)] Route: PO; ms18 17:43 Drug: morphine 2 mg [morphine 2 mg/mL intravenous cartridge (1 mL)] Route: IVP; Site: dsf left antecubital; 18:10 Follow up: Pain 02/18 Adult; see charted VS dsf Signatures: Dispatcher [employer] EDMS Usama Palacios MD MD pc Eve Castellanos, Reg Reg gb Dino Blas RN RN mlb1 Mor Begum Amber, RN RN af2 Kimmie Vogel MD MD fg Fuller, Desiree RN dsf Carol Hamm RN ms18 The chart was reviewed and I authenticate all verbal orders and agree with the evaluation and treatment provided.Corrections: (The following items were deleted from the chart) 17:47 17:43 LIPASE+LAB ordered. EDMS EDMS 17:47 17:43 LIVER PROFILE+LAB ordered. EDMS EDMS Attachments: 19:41 [facility] Payment Agreement zo 09/06 11:29 T-Sheet-- Draft Copy gb 11:29 ECG/EKG gb Chart Complete MTDD
--- NOTE | 2016-09-07 21:30 | EDDOCDS ---
Physician Documentation [facility] Name: José Miguel Vasquez Age: 45 yrs Sex: Male : 1970 Arrival Date: 09/05/2016 Time: 17:03 Bed 9 Private MD: Vimal Harry Disposition: 09/05 20:09 Critical Care: Critical care not applicable. pc Disposition: 09/05/16 20:16 Discharged to Home/Self Care. Impression: Chest pain, unspecified - labs, EKG and CTs nondiagnostic, Complex regional pain syndrome I, unspecified. - Condition is Stable. - Discharge Instructions: Nonspecific Chest Pain. - Medication Reconciliation, Local Pharmacy Hours form. - Follow up: Vimal Harry MD; When: Call to arrange an appointment; Reason: Continuance of care. Follow up: Michele Olson; When: As previously arranged; Reason: Continuance of care. Follow up: Kirill Apple MD; When: Call to arrange an appointment; Reason: Further diagnostic work-up, To establish care. - Problem is new. - Symptoms have improved. Historical: - Allergies: BuSpar; - Home Meds: 1. atenolol 50 mg Oral tab 1 tab once daily 2. hydromorphone 4 mg Oral tab 1 tab every 6 hours 3. oxycodone 15 mg Oral tab 1 tab every 4 hours as needed 4. Cymbalta 30 mg Oral cpDR three times a day 5. zolpidem 10 mg Oral tab 1 tab once daily 6. gabapentin 300 mg Oral cap 1 cap 3 times per day 7. Colace 100 mg oral cap 2 caps 2 times per day 8. amlodipine 5 mg Oral tab 2 tabs once daily 9. Vistaril 25 mg Oral cap 1 cap every 6 hours as needed 10. Voltaren 1 % topical gel 4 times per day 11. lidocaine 5 % Topical oint four times a day - PMHx: Chronic Low Back Pain; complex regional pain syndrome; Hypertension; RSD; - PSHx: Orthopedic Surgery; Laminectomy. lumbar; - Social history: Smoking status: Patient uses tobacco products, heavy tobacco smoker. No barriers to communication noted, The patient speaks fluent Khmer, Speaks appropriately for age. - Family history: Not pertinent. - : The pt / caregiver states he / she is not on anticoagulants. Home medication list is obtained from the patient. - Exposure Risk Screening:: None identified. Vital Signs: 17:05 BP 162 / 87; Pulse 62; Resp 18 S; Temp 98.1(O); Pulse Ox 99% on R/A; Weight 127.01 kg / gr2 280.01 lbs (R); Height 5 ft. 10 in. (177.80 cm) (R); Pain 7/10; 17:22 BP 224 / 105 (auto/); dsf 17:24 Pulse 56 MON; Pulse Ox 95% ; dsf 17:27 BP 172 / 86 (auto/); dsf 17:27 Pulse 60 MON; Pulse Ox 97% ; dsf 17:37 BP 146 / 79 (auto/); dsf 17:37 Pulse 54 MON; Pulse Ox 98% ; dsf 17:52 BP 133 / 77 (auto/); dsf 17:55 Pulse 54 MON; Pulse Ox 95% ; dsf 18:07 BP 127 / 73 (auto/); dsf 18:08 Pulse 54 MON; Pulse Ox 93% ; dsf 18:10 Pain 7/10; dsf 18:22 BP 139 / 78 (auto/); dsf 18:23 Pulse 50 MON; Pulse Ox 94% ; dsf 18:37 BP 136 / 77 (auto/); dsf 18:38 Pulse 52 MON; Pulse Ox 92% ; dsf 19:07 BP 128 / 70 (auto/); Resp 18 S; af2 19:08 Pulse 52 MON; Pulse Ox 96% on R/A; af2 19:37 BP 131 / 82 (auto/); af2 19:38 Pulse 48 MON; Pulse Ox 95% ; af2 19:52 BP 141 / 81 (auto/); af2 19:53 Pulse 48 MON; Pulse Ox 95% ; af2 20:07 BP 137 / 87 (auto/); af2 20:08 Pulse 48 MON; Resp 18 S; Temp 97.6(O); Pulse Ox 97% on R/A; af2 17:05 Body Mass Index 40.18 (127.01 kg, 177.80 cm) gr2 MDM: 17:12 Aspirin Chewable Tablet 324 mg PO once ordered. fg 17:12 [employer] Developer/Pulse Ox/q 30 min VS ordered. fg 17:12 IV Saline Lock ordered. fg 17:12 Rhythm Strip to chart ordered. fg 17:12 Undress patient appropriately for examination ordered. fg 17:12 ECG WITH READING ER PHYS+CARDIAG ordered. EDMS 17:13 B-Type Natiuretic Peptide Ordered. EDMS 17:13 Basic Metabolic Profile Ordered. EDMS 17:13 CBC with Diff Ordered. EDMS 17:13 Cardiac Injury Profile Ordered. EDMS 17:13 Troponin Ordered. EDMS 17:15 Chest, 2 View (pa\E\lat) Ordered. EDMS 17:32 morphine 2 mg IVP once ordered. fg 17:34 CT Chest Angio R/O PE Ordered. EDMS 17:34 CT ABD & PELVIS: IV Contrast Only Ordered. EDMS 17:49 LIPASE Ordered. EDMS 17:49 LIVER PROFILE Ordered. EDMS 19:16 Basic Metabolic Profile Reviewed. pc 19:16 CBC with Diff Reviewed. pc 19:16 LIVER PROFILE Reviewed. pc 19:16 B-Type Natiuretic Peptide Reviewed. pc 19:16 Cardiac Injury Profile Reviewed. pc 19:16 Troponin Reviewed. pc 19:16 LIPASE Reviewed. pc 19:16 Chest, 2 View (pa\E\lat) Reviewed. pc 19:39 Financial registration complete. zo 19:41 [facility] Payment Agreement was scanned into [employer] and attached to record. zo 20:09 Test interpretation: interpreted by Radiologist and personally reviewed, Abdomen/Pelvis pc CT; no acute disease, Chest CT; no PE, reactive bilateral hilar adenopathy. The patient has been re-examined and re-evaluated. The patient's symptoms have mildly improved after treatment. Disposition: The historical points, examination findings, and any diagnostic results supporting the provided diagnosis, were discussed with the patient or legal guardian. The need for outpatient follow up with the provider listed on their discharge instructions was discussed. They were encouraged to return to [facility], or the nearest ED, if symptoms worsen/persist, or for any other questions/concerns. 09/06 11:29 T-Sheet-- Draft Copy was scanned into [employer] and attached to record. gb 11:29 ECG/EKG was scanned into [employer] and attached to record. gb Administered Medications: 09/05 17:30 Drug: Aspirin 324 mg [aspirin 81 mg chewable tablet (4 tabs)] Route: PO; ms18 17:43 Drug: morphine 2 mg [morphine 2 mg/mL intravenous cartridge (1 mL)] Route: IVP; Site: dsf left antecubital; 18:10 Follow up: Pain 02/18 Adult; see charted VS dsf Signatures: Dispatcher [employer] EDMS Usama Palacios MD MD pc Eve Castellanos, Reg Reg gb Dino Blas RN RN mlb1 Mor Begum Amber, RN RN af2 Kimmie Vogel MD MD fg Fuller, Desiree RN dsf Carol Hamm RN ms18 The chart was reviewed and I authenticate all verbal orders and agree with the evaluation and treatment provided.Corrections: (The following items were deleted from the chart) 17:47 17:43 LIPASE+LAB ordered. EDMS EDMS 17:47 17:43 LIVER PROFILE+LAB ordered. EDMS EDMS Attachments: 19:41 [facility] Payment Agreement zo 09/06 11:29 T-Sheet-- Draft Copy gb 11:29 ECG/EKG gb Chart Complete MTDD
--- NOTE | 2016-09-07 21:30 | EDDOCDS ---
Nurse's Notes [facility] Name: Warren Vasquez Age: 45 yrs Sex: Male : 1970 Arrival Date: 09/05/2016 Time: 17:03 Bed 9 Private MD: Vimal Harry Diagnosis: Chest pain, unspecified-labs, EKG and CTs nondiagnostic;Complex regional pain syndrome I, unspecified Presentation: 09/05 17:10 Presenting complaint: Patient states: Swelling in legs left arm and back, chest mlb1 tightness diaphoresis and nausea began 8 days ago. No acute neurological deficit is noted. Pre-hospital glucose is not applicable to this patient. Adult Sepsis Screening: The patient does not have new or worsening altered mentation. Patient's respiratory rate is less than 22. Systolic blood pressure is greater than 100. Patient has a qSOFA score of 0- Negative Sepsis Screen. Suicide/Homicide risk assessment- the patient denies having any suicidal and/or homicidal ideations and does not present with any other emotional, behavioral or mental health complaints. 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 Transition of care: patient was not received from another setting of care. 17:10 Acuity: TODD Level 2 mlb1 17:10 Method Of Arrival: Walkin/Carried/Asstd mlb1 20:27 The last date and time the patient was known to be well was was at an unknown time on af2 an unknown date. Triage Assessment: 17:19 General: Appears in no apparent distress, Behavior is anxious, cooperative. Pain: mlb1 Location: chest Quality of pain is described as tightness Unable to use pain scale. Does not appear to understand pain scale. 20:28 The onset of the patients symptoms was at an unknown time. HIV screening NA for this af2 visit Offered previously. Neurological: Reports. Neurological: No deficits noted. 20:28 Neurological: Level of Consciousness is awake, alert. af2 Historical: - Allergies: BuSpar; - Home Meds: 1. atenolol 50 mg Oral tab 1 tab once daily 2. hydromorphone 4 mg Oral tab 1 tab every 6 hours 3. oxycodone 15 mg Oral tab 1 tab every 4 hours as needed 4. Cymbalta 30 mg Oral cpDR three times a day 5. zolpidem 10 mg Oral tab 1 tab once daily 6. gabapentin 300 mg Oral cap 1 cap 3 times per day 7. Colace 100 mg oral cap 2 caps 2 times per day 8. amlodipine 5 mg Oral tab 2 tabs once daily 9. Vistaril 25 mg Oral cap 1 cap every 6 hours as needed 10. Voltaren 1 % topical gel 4 times per day 11. lidocaine 5 % Topical oint four times a day - PMHx: Chronic Low Back Pain; complex regional pain syndrome; Hypertension; RSD; - PSHx: Orthopedic Surgery; Laminectomy. lumbar; - Social history: Smoking status: Patient uses tobacco products, heavy tobacco smoker. No barriers to communication noted, The patient speaks fluent Finnish, Speaks appropriately for age. - Family history: Not pertinent. - : The pt / caregiver states he / she is not on anticoagulants. Home medication list is obtained from the patient. - Exposure Risk Screening:: None identified. Screenin:24 Screening information is obtained from the patient. Fall risk: No risks identified. af2 Assistance ADL's: requires no assistance with activities of daily living. Abuse/DV Screen: The patient / caregiver reports he/she is: not in a situation that causes fear, pain or injury. Nutritional screening: No deficits noted. Advance Directives: Further advance directive information is declined. home support is adequate. Assessment: 17:43 General: Appears in no apparent distress, Behavior is appropriate for age, cooperative. dsf Pain: Location: back and right arm Pain currently is 7 out of 10 on a pain scale. Quality of pain is described as burning. Neurological: Level of Consciousness is awake, alert, Oriented to person, place, time. Cardiovascular: Capillary refill < 3 seconds Heart tones S1 S2 present Rhythm is sinus rhythm No ectopy. Chest pain is described as Pain is 3 out of 10 on a pain scale. quality is pressure, is located in substernal area radiates Does not radiate. Respiratory: Airway is patent Respiratory effort is even, unlabored, Respiratory pattern is regular, symmetrical, Breath sounds are clear bilaterally. GI: Abdomen is non- distended obese, Bowel sounds present X 4 quads. Abd is soft and non tender X 4 quads. Denies nausea, vomiting, pain. Derm: Skin is pink, warm & dry. Musculoskeletal: cloth sock over right forearm. 18:43 Adult Sepsis Screening: The patient does not have new or worsening altered mentation. dsf Patient's respiratory rate is less than 22. Systolic blood pressure is greater than 100. Patient has a qSOFA score of 0- Negative Sepsis Screen. General: Appears in no apparent distress, comfortable, Behavior is appropriate for age, cooperative. Pain: Location: right arm and back Pain currently is 7 out of 10 on a pain scale. Neurological: Level of Consciousness is awake, alert. Cardiovascular: Capillary refill < 3 seconds. Respiratory: Airway is patent Respiratory effort is even, unlabored, Respiratory pattern is regular, symmetrical. Derm: Skin is pink, warm & dry. 19:19 General: Appears in no apparent distress, comfortable, Behavior is appropriate for age, af2 cooperative. Pain: Location: right arm and back and chest Pain currently is 6 out of 10 on a pain scale. Neurological: Level of Consciousness is awake, alert, Oriented to person, place, time. Cardiovascular: Rhythm is sinus bradycardia. Respiratory: Airway is patent Respiratory effort is even, unlabored. Derm: Skin is pink, warm & dry. Vital Signs: 17:05 BP 162 / 87; Pulse 62; Resp 18 S; Temp 98.1(O); Pulse Ox 99% on R/A; Weight 127.01 kg gr2 (R); Height 5 ft. 10 in. (177.80 cm) (R); Pain 7/10; 17:22 BP 224 / 105 (auto/); dsf 17:24 Pulse 56 MON; Pulse Ox 95% ; dsf 17:27 BP 172 / 86 (auto/); dsf 17:27 Pulse 60 MON; Pulse Ox 97% ; dsf 17:37 BP 146 / 79 (auto/); dsf 17:37 Pulse 54 MON; Pulse Ox 98% ; dsf 17:52 BP 133 / 77 (auto/); dsf 17:55 Pulse 54 MON; Pulse Ox 95% ; dsf 18:07 BP 127 / 73 (auto/); dsf 18:08 Pulse 54 MON; Pulse Ox 93% ; dsf 18:10 Pain 7/10; dsf 18:22 BP 139 / 78 (auto/); dsf 18:23 Pulse 50 MON; Pulse Ox 94% ; dsf 18:37 BP 136 / 77 (auto/); dsf 18:38 Pulse 52 MON; Pulse Ox 92% ; dsf 19:07 BP 128 / 70 (auto/); Resp 18 S; af2 19:08 Pulse 52 MON; Pulse Ox 96% on R/A; af2 19:37 BP 131 / 82 (auto/); af2 19:38 Pulse 48 MON; Pulse Ox 95% ; af2 19:52 BP 141 / 81 (auto/); af2 19:53 Pulse 48 MON; Pulse Ox 95% ; af2 20:07 BP 137 / 87 (auto/); af2 20:08 Pulse 48 MON; Resp 18 S; Temp 97.6(O); Pulse Ox 97% on R/A; af2 17:05 Body Mass Index 40.18 (127.01 kg, 177.80 cm) gr2 Vitals: 17:05 Log In Time: September 05, 2016 at 17:05. RN notified that patient meets Red Flag gr2 criteria. 20:28 Glucose Measurement n/a. af2 ED Course: 17:04 Patient visited by Vinicio Monroy. gr2 17:04 Patient moved to Waiting gr2 17:05 Vimal Harry MD is Private Physician. gr2 17:07 Patient visited by Vinicio Monroy. gr2 17:07 Patient moved to Pre RCE gr2 17:10 Jenifer Flannery,RN is Primary Nurse. mlb1 17:10 Patient moved to 9 mlb1 17:11 Kimmie Vogel MD is Attending Physician. fg 17:12 Triage Initiated mlb1 17:20 Patient visited by Dino Blas RN. mlb1 17:21 EKG done. (by ED staff). Reviewed by Kimmie Vogel MD. jrd 17:22 Patient visited by Zachary Milian PCA. jrd 17:22 Primary Nurse role handed off by Jenifer Flannery RN [facility] 17:22 EKG done. (by ED staff). Reviewed by Kimmie Vogel MD. jrd 17:22 B-Type Natiuretic Peptide Sent. dsf 17:22 Basic Metabolic Profile Sent. dsf 17:22 CBC with Diff Sent. dsf 17:22 Cardiac Injury Profile Sent. dsf 17:22 Troponin Sent. dsf 17:22 Inserted saline lock: 18 gauge in left antecubital area The patient tolerated the dsf procedure well. 17:26 Patient visited by Zachary Milian PCA. jrd 17:31 Patient visited by Kimmie Vogel MD. fg 17:33 Patient moved to Radiology dsf 17:45 Patient visited by Anika Singleton,YANA. dsf 17:45 Patient moved to 9 dsf 18:12 Chest, 2 View (pa\E\lat) Returned. EDMS 18:45 Patient visited by Anika Singleton RN. dsf 18:[address] dsf 18:58 Patient moved to 9 dsf 19:01 Jenifer FlanneryRN is Primary Nurse. af2 19:01 Attending Physician role handed off by Kimmie Vogel MD pc 19:01 Usama Palacios MD is Attending Physician. pc 19:20 Patient visited by Jenifer Flannery RN. af2 19:41 [facility] Payment Agreement was scanned into [employer] and attached to record. zo 19:56 Patient name changed from Warren\S\\S\Christina\S\ to Warren\S\ \S\Christina. EDMS 19:58 Patient visited by Jenifer Flannery RN. af2 20:00 Patient visited by Jenifer Flannery RN. af2 20:13 CT Chest Angio R/O PE Returned. EDMS 20:13 CT ABD & PELVIS: IV Contrast Only Returned. EDMS 20:15 Vimal Harry MD is Referral Physician. pc 20:15 Kirill Apple MD is Referral Physician. pc 20:15 Michele Olson is Referral Physician. pc 20:26 Discontinued IV lock intact, bleeding controlled, pressure dressing applied, No af2 redness/swelling at site. No procedures done that require assistance. 20:28 The patient / caregiver is instructed regarding the plan of care and ED course. af2 09/06 07:36 EKG-ADULT Returned. EDMS 11:29 T-Sheet-- Draft Copy was scanned into [employer] and attached to record. gb 11:29 ECG/EKG was scanned into [employer] and attached to record. gb Administered Medications: 09/05 17:30 Drug: Aspirin 324 mg [aspirin 81 mg chewable tablet (4 tabs)] Route: PO; ms18 17:43 Drug: morphine 2 mg [morphine 2 mg/mL intravenous cartridge (1 mL)] Route: IVP; Site: dsf left antecubital; 18:10 Follow up: Pain 7/10 Adult; see charted VS dsf Intake: Order Results: Lab Order: B-Type Natiuretic Peptide; SPEC'M 09/05/16 17:19 Test: BRAIN NATRIURETIC PEPTIDE; Value: 28.9; Range: <100; Units: PG/ML; Status: F Lab Order: Basic Metabolic Profile; SPEC'M 09/05/16 17:54 Test: GLUCOSE, FASTING; Value: 92; Range: 70-105; Units: MG/DL; Status: F Test: BLOOD UREA NITROGEN; Value: 20; Range: 7-18; Abnormal: Above high normal; Units: MG/DL; Status: F Test: CREATININE FOR GFR; Value: 0.98; Range: 0.70-1.30; Units: MG/DL; Status: F Test: GLOMERULAR FILTRATION RATE; Value: > 60.0; Range: >60; Status: F Test: SODIUM LEVEL; Value: 139; Range: 136-145; Units: MEQ/L; Status: F Test: POTASSIUM SERUM; Value: 4.0; Range: 3.5-5.1; Units: MEQ/L; Status: F Test: CHLORIDE LEVEL; Value: 105; Range: 98-107; Units: MEQ/L; Status: F Test: CARBON DIOXIDE LEVEL; Value: 25; Range: 21-32; Units: MEQ/L; Status: F Test: ANION GAP; Value: 9; Range: 8-16; Units: MEQ/L; Status: F Test: CALCIUM LEVEL; Value: 9.0; Range: 8.5-10.1; Units: MG/DL; Status: F Test Note: ; Units are mL/min/1.73 m2 Chronic Kidney Disease Staging per NKF: Stage I & II GFR >=60 Normal to Mildly Decreased Stage III GFR 30-59 Moderately Decreased Stage IV GFR 15-29 Severely Decreased Stage V GFR <15 Very Little GFR Left ESRD GFR <15 on DEAN OF EDUCATION Lab Order: CBC with Diff; SPEC'M 09/05/16 17:19 Test: WHITE BLOOD COUNT; Value: 11.5; Range: 4.0-10.0; Abnormal: Above high normal; Units: K/mm3; Status: F Test: RED BLOOD COUNT; Value: 5.91; Range: 4.30-6.10; Units: M/mm3; Status: F Test: HEMOGLOBIN; Value: 16.1; Range: 14.0-18.0; Units: g/dl; Status: F Test: HEMATOCRIT; Value: 48.1; Range: 42.0-52.0; Units: %; Status: F Test: MEAN CORPUSCULAR VOLUME; Value: 81.4; Range: 80.0-96.0; Units: fl; Status: F Test: MEAN CORPUSCULAR HEMOGLOBIN; Value: 27.2; Range: 27.0-33.0; Units: pg; Status: F Test: MEAN CORPUSCULAR HGB CONC; Value: 33.4; Range: 32.0-36.5; Units: g/dl; Status: F Test: RED CELL DISTRIBUTION WIDTH; Value: 14.4; Range: 11.5-14.5; Units: %; Status: F Test: PLATELET COUNT, AUTOMATED; Value: 293; Range: 150-450; Units: k/mm3; Status: F Test: NEUTROPHILS %; Value: 60.5; Range: 36.0-66.0; Units: %; Status: F Test: LYMPH %; Value: 29.0; Range: 24.0-44.0; Units: %; Status: F Test: MONO %; Value: 4.3; Range: 0.0-5.0; Units: %; Status: F Test: EOS %; Value: 3.2; Range: 0.0-3.0; Abnormal: Above high normal; Units: %; Status: F Test: BASO %; Value: 1.3; Range: 0.0-1.0; Abnormal: Above high normal; Units: %; Status: F Test: LARGE UNSTAINED CELL %; Value: 1.6; Range: 0.0-4.0; Units: %; Status: F Test: NEUTROPHILS #; Value: 7.0; Range: 1.8-7.7; Units: K/mm3; Status: F Test: LYMPH #; Value: 3.5; Range: 1.5-4.5; Units: K/mm3; Status: F Test: MONO #; Value: 0.5; Range: 0.0-0.8; Units: K/mm3; Status: F Test: EOS #; Value: 0.4; Range: 0.0-0.50; Units: K/mm3; Status: F Test: BASO #; Value: 0.2; Range: 0.0-0.2; Units: K/mm3; Status: F Test: LARGE UNSTAINED CELL #; Value: 0.2; Range: 0.0-0.4; Units: K/mm3; Status: F Lab Order: Cardiac Injury Profile; [facility] 09/05/16 17:54 Test: CPK CREATINE PHOSPHOKINASE; Value: 278; Range: 39-308; Units: U/L; Status: F Test: CK-MB VALUE MASS; Value: 2.9; Range: 0.0-3.6; Units: NG/ML; Status: F Test: MB/CK RELATIVE INDEX; Value: 1.04; Range: < OR =4; Status: F Test Note: ; DIAGNOSIS CRITERIA MMB ng/ml Relative Index (RI) NON-AMI < or = 5 N/A SINHA ZONE > 5 < or = 4 AMI > 5 > 4 Lab Order: Troponin; [facility] 09/05/16 17:54 Test: TROPONIN I; Value: < 0.02; Range: < 0.10; Units: NG/ML; Status: F Test Note: ; Troponin I Reference Interval for [employer] LOCI: 99th Percentile= 0.00-0.045 ng/ml Risk Stratification: <= 0.10 ng/ml Decreased Risk for Adverse Clinical Events. 0.10-1.50 ng/ml Increased Risk for Adverse Clinical Events. Evaluation of additional criterion and/or repeat testing in 2-6 hours is suggested to rule out myocardial damage. >= 1.50 ng/ml Indicative of Myocardial Injury. Lab Order: LIPASE; [facility] 09/05/16 17:54 Test: LIPASE; Value: 321; Range: 73-393; Units: U/L; Status: F Lab Order: LIVER PROFILE; [facility] 09/05/16 17:54 Test: AST/SGOT; Value: 16; Range: 15-37; Units: U/L; Status: F Test: ALT/SGPT; Value: 27; Range: 12-78; Units: U/L; Status: F Test: ALKALINE PHOSPHATASE; Value: 70; Range: 45-117; Units: U/L; Status: F Test: BILIRUBIN,TOTAL; Value: 0.3; Range: 0.2-1.0; Units: MG/DL; Status: F Test: BILIRUBIN,DIRECT; Value: 0.1; Range: 0.0-0.2; Units: MG/DL; Status: F Test: TOTAL PROTEIN; Value: 8.0; Range: 6.4-8.2; Units: GM/DL; Status: F Test: ALBUMIN; Value: 3.9; Range: 3.2-5.2; Units: GM/DL; Status: F Test: ALBUMIN/GLOBULIN RATIO; Value: 0.95; Range: 1.00-1.93; Abnormal: Below low normal; Status: F Radiology Order: EKG-ADULT Test: EKG-ADULT REASON FOR EXAMINATION: Chest Pain; Stationary ECG Study; [facility] - ED; ; Test Date: 2016-09-05; Pat Name: WARREN VASQUEZ Department:; Room: -; Gender: M 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; : 1970 Requested By: KIMMIE Traore; Order Number: [id number] Reading MD: Griselda Villa; Measurements; Intervals [place]; Rate: 54 P: 48; CO: 172 QRS: 57; QRSD: 102 T: 43; QT: 419; QTc: 398; Interpretive Statements; SINUS BRADYCARDIA; POSSIBLE RIGHT VENTRICULAR CONDUCTION DELAY; EARLY REPOLARIZATION, CLINICAL CORRELATION; SIMILAR 02/16/16; Electronically Signed On 09-06-2016 7:26:13 EST by Griselda Villa; Radiology Order: Chest, 2 View (pa\E\lat) Test: Chest, 2 View (pa\E\lat) REASON FOR EXAMINATION: Chest Pain; Chest x-ray: Two views.; ; History: Chest pain.; ; Findings: A dorsal column stimulator is seen in the thoracic spine terminating; in the cervical spine. The lungs are symmetrically aerated and clear. Pleural; angles are sharp. Heart size is normal. Pulmonary vasculature is not increased.; No significant bony abnormality is seen.; ; Impression:; ; Dorsal column stimulator seen terminating in the cervical spine. No active; disease.; ; ; Signed by; Juan Carlos Parker MD 09/05/2016 06:41 P; Radiology Order: CT Chest Angio R/O PE Test: CT Chest Angio R/O PE REASON FOR EXAMINATION: Chest Pain; ; CLINICAL HISTORY: CP, exclude PE.; TECHNIQUE: Multiple incremental axial, coronal and oblique images are obtained from the thoracic inle; t to the upper abdomen. Intravenous contrast material was administered as per pulmonary embolism prot; ocol.; COMMENTS:; Mild biapical emphysema is seen.; There is excellent opacification of pulmonary arterial system without evidence for pulmonary embolism; . Aorta is of normal caliber without evidence for dissection or aneurysm.; There is no evidence of pleural or parenchymal mass. There are no pleural effusions. There is nonspe; cific bilateral hilar adenopathy seen, likely reactive process. There is no evidence of bulky hilar; or mediastinal lymphadenopathy. The heart and great vessels are within normal limits.; Images of the upper abdomen demonstrate no evidence of adrenal mass.; The bony structures are free of lytic or blastic lesions.; IMPRESSION:; Emphysema.; No evidence for pulmonary embolism.; Nonspecific bilateral hilar adenopathy seen, likely reactive process.; Thank you for your kind referral of this patient.; ; Radiology Order: CT ABD & PELVIS: IV Contrast Only Test: CT ABD & PELVIS: IV Contrast Only REASON FOR EXAMINATION: Abdomen Pain; ; CLINICAL HISTORY: Abdominal pain.; TECHNIQUE: Multiple axial, sagittal and coronal CT images were obtained through the abdomen and pelvi; s after administration of intravenous contrast material.; COMMENTS:; The liver is of uniform attenuation without mass or defect. There is no intra or extrahepatic biliary; ductal dilatation. The spleen is normal. The gallbladder is within normal limits. The pancreas is of; normal contour and attenuation characteristics. There is no evidence of adrenal mass.; Both kidneys demonstrate prompt and equal nephrograms. The kidneys are normal in size, shape and conf; iguration. There is no evidence of renal or ureteral mass. No renal or ureteral calculi are identifie; d. There is no hydroureter or hydronephrosis.; No evidence for appendicitis. There is no bowel wall thickening. No evidence for small or large sadaf; l obstruction. There is no evidence of abdominal ascites or lymphadenopathy.; There is no evidence of intrinsic or extrinsic bladder mass. There is no pelvic ascites or lymphadeno; ariel.; Images of the lung bases show no evidence of pleural or parenchymal mass. There are no pleural effusi; ons.; The bony structures are free of lytic or blastic lesions. Intraspinal catheter is noted with leads t; erminating at the thoracic levels.; IMPRESSION:; No evidence of acute abdominal or pelvic pathology.; Thank you for your kind referral of this patient.; ; Outcome: 20:16 Discharge ordered by Provider. pc 20:26 Discharge Assessment: Patient awake, alert and oriented x 3. No cognitive and/or af2 functional deficits noted. Patient verbalized understanding of disposition instructions. patient administered narcotics - yes. Pt provided with safe discharge. The following High Risk Discharge criteria are identified: None. Discharged to home ambulatory, with significant other. Condition: stable. Discharge instructions given to patient, Instructed on discharge instructions, follow up and referral plans. Demonstrated understanding of instructions, Pt was receptive of discharge instructions/ teaching. CT Study completed. Property :Personal belongings accompany Pt. 20:28 Patient left the ED. af2 Signatures: Dispatcher [employer] EDMS Usama Palacios MD MD pc Peters, Mary, RN RN Eve Richardson, Reg Reg Dino Mccarty RN RN mlb1 Mor Begum Desiree,RN RN dsf Vinicio Monroy gr2 Carol Hamm RN RN [id number] Zachary Milian, [employer]UM[employer] INSPECTOR [employer]UMENTS INSPECTOR Jenifer MerinoRN RN af2 Kimmie Vogel MD MD fg Chart Complete MTDD
== END 2016-09-05 20:28 | disposition home or self-care (01) ==
LOC: M ED 17:03
DX: R07.89 Other chest pain (principal); R10.13 Epigastric pain; G90.50 Complex regional pain syndrome I, unspecified; I10 Essential (primary) hypertension; M54.5 Low back pain; G89.29 Other chronic pain; Z96.9 Presence of functional implant, unspecified; Z79.899 Other long term (current) drug therapy; Z88.8 Allergy status to other drugs, medicaments and biological substances; F17.210 Nicotine dependence, cigarettes, uncomplicated
CPT/HCPCS: 36415; 71020; 71275; 74177; 80048; 80076; 82550; 82553; 83690; 83880; 84484; 85025; 93005; 93041; 96374; 99285; G0463; Q9967

== ENCOUNTER → 2016-09-05 | Outpatient (CLI) | payer MEDICARE, OTHER ==
--- NOTE | 2016-09-06 23:50 | ECWPNPC ---
PATIENT NAME: WARREN SANTOS : 1970 GENDER: MALE VISIT DATE: 09/05/2016 DISCHARGE DATE: 09/05/16 1645 VISIT LOCKED DATE TIME: PHYSICIAN: MICHAEL MODI RESOURCE: MICHAEL MODI REASON FOR APPOINTMENT 1. LOW BACK PAIN HISTORY OF PRESENT ILLNESS HISTORY OF PRESENT ILLNESS: PAIN THE PATIENT DESCRIBES THE PAIN... 45 YEAR OLD MALE PATIENT WITH HISTORY OF CHRONIC LOW BACK PAIN. PATIENT DESCRIBES THE PAIN ACHING, BURNING, SHARP, STABBING, TENDER, THROBBING, SORE, SHOOTING, AND HAVING IT ALL THE TIME WITH A PAIN SCORE OF 7-8/10. PATIENT REPORTS HAVING PSYCHOLOGICAL EVALUATION DONE. 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 PATIENT REPORTS THAT ANY TYPE OF ACTIVITY INCREASES THE PAIN IN HIS LOWER BACK. PATIENT DENIES UNEXPLAINABLE WEIGHT LOSS, FEVER, CHILLS, NEW CHANGES ON HIS URINARY OR BOWEL CONTROL. FALL RISK SCREENING: SCREENING :NO FALLS IN THE PAST YEAR CURRENT MEDICATIONS TAKING VOLTAREN 1 % GEL ONE APPLICATION EXTERNALLY QID TO RIGHT UPPER EXTREMITY TAKING LIDOCAINE 5 % OINTMENT 1 APPLICATION TO AFFECTED AREA NEEDED EXTERNALLY THREE TIMES A DAY TAKING MELATONIN 3 MG TABLET 3 TABLET AT BEDTIME NEEDED WITH FOOD ORALLY ONCE A DAY TAKING GABAPENTIN 300 MG TABLET 1 CAPSULE ORALLY THREE TIMES A DAY TAKING COLACE 100 MG CAPSULE 2 CAPSULE NEEDED ORALLY BID TAKING AMLODIPINE BESYLATE 5 MG TABLET 2 TABLETS ORALLY ONCE A DAY TAKING VISTARIL 25 MG CAPSULE 1 CAPSULE ORALLY EVERY6 HRS PRN ANXIETY MDD=4, NOTES: TAKING MAX 3 DAILY TAKING ATENOLOL 50 MG TABLET 1 TABLET ORALLY ONCE A DAY TAKING HYDROMORPHONE HCL 4 MG TABLET 1 TABLET ORALLY TAKE ONE TAB Q 6 HRS PRN PAIN MDD=3DD= TAKING OXYCODONE HCL 15 MG TABLET 1-2 TABLET ORALLY EVERY 4 HOURS PRN PAIN MDD=4 TAKING CYMBALTA 30 MG CAPSULE DELAYED RELEASE PARTICLES 1 CAPSULE ORALLY TID TAKING ZOLPIDEM TARTRATE 10 MG TABLET 1 TABLET AT BEDTIME NEEDED ORALLY AT BEDTIME MDD=1 NOT-TAKING CLONAZEPAM 0.5 MG TABLET 1 -2 TABLET ORALLY Q 6 HRS PRN ANXIETY MDD=3, NOTES: TAKING MAX 3 TABS DAILY MEDICATION LIST REVIEWED AND RECONCILED WITH THE PATIENT PAST MEDICAL HISTORY HTN ANXIETY REFLEX SYMPATHETIC DYSTROPHY/COMPLEX REGIONAL PAIN SYNDROME RIGHT UPPER EXTREMITY SPINAL STENOSIS- LUMBAR ALLERGIES BUSPIRONE HCL: FACIAL RASH, SWELLING, HIVES: ALLERGY SURGICAL HISTORY LAMINECTOMY/DISCECTOMY L1-S1 04/2015 DCS 07/2011 INGUINAL HERNIA REPAIR GROIN LYMPH NODE EXCISION RIGHT HAND- SCREWS/PLATE 2001 ARTHROSCOPIC KNEE SURGERY DENTAL EXTRACTIONS FAMILY HISTORY NO FAMILY HISTORY DOCUMENTED. 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 NEW PATIENT PAIN DIARY TODAY'S VISITNOTES FROM 0-10, WHAT LEVEL IS YOUR PAIN TODAY?0 PAIN CLINIC PFS, CLERGY, PUBLIC HEALTH REFERRALS PFS REFERRAL NEEDED?NO CLERGY REFERRAL NEEDED?NO PUBLIC HEALTH REFERRAL NEEDED?NO WAS THE PROVIDER NOTIFIED OF ANY PERTINENT INFO?NO PFS REFERRAL NEEDED?NO CLERGY REFERRAL NEEDED?NO PUBLIC HEALTH REFERRAL NEEDED?NO WAS THE PROVIDER NOTIFIED OF ANY PERTINENT INFO?NO HOSPITALIZATION/MAJOR DIAGNOSTIC PROCEDURE SURGERIES ACUTE RENAL FAILURE 03/2016 REVIEW OF SYSTEMS CONSTITUTIONAL: ANY CHANGE IN YOUR MEDICAL CONDITION? NO . CHILLS NO . FEVER NO . INFECTION: DO YOU HAVE NEW INFECTIONS? NO . DO YOU HAVE HISTORY OF MRSA? NO . MUSCULOSKELETAL: ANY NEW PATTERNS OF PAIN OR NUMBNESS? NO . GASTROENTEROLOGY: ANY NEW CHANGE IN BOWEL CONTROL? NO . GENITOURINARY: ANY NEW CHANGE IN BLADDER CONTROL? NO . IS THERE A CHANCE YOU COULD BE ? NO . HEMATOLOGY/LYMPH: DO YOU TAKE ANY BLOOD THINNERS? (FOR EXAMPLE- COUMADIN, PLAVIX, AGGRENOX, PLATEL, PRADAXA, OR XARELTO) NO . WHEN WAS YOUR LAST DOSE? DATE: TIME: . NEUROLOGY: HAVE YOU FALLEN IN THE PAST 6 MONTHS? NO . ANY NEW EXTREMITY NUMBNESS OR WEAKNESS? NO . CARDIOLOGY: DO YOU HAVE A PACEMAKER OR DEFIBRILLATOR? NO . RESPIRATORY: HAVE YOU BEEN SICK IN THE PAST WEEK? NO . FEVER NO . FLU LIKE SYMPTOMS? NO . COUGH NO . INTEGUMENTARY: DO YOU HAVE ANY RASHES OR OPEN SORES? NO . ALLERGIC/IMMUNO: ARE YOU ALLERGIC TO SHELLFISH OR IV DYE? NO . ANY NEW ALLERGIES? NO . PSYCHIATRIC: DO YOU HAVE THOUGHTS OF HURTING YOURSELF OR SOMEONE ELSE? NO . ARE YOU ABUSED, NEGLECTED, OR IN AN UNSAFE ENVIRONMENT? NO . ENDOCRINOLOGY: ARE YOU DIABETIC? NO . OTHER: DO YOU NEED ANY PRESCRIPTIONS? NO . IF YES, PLEASE LIST: ____ . ANY NEW PROBLEMS WITH YOUR MEDICATIONS? NO . WHEN DID YOU LAST EAT? ____ . WHEN DID YOU LAST DRINK? ____ . WHAT DID YOU LAST DRINK? ____ . NAME OF PERSON DRIVING YOU HOME? ____ . DO YOU HAVE ANY OTHER QUESTIONS OR CONCERNS NO . REVIEWED BY: PROVIDER: MICHAEL MODI MD . VITAL SIGNS WT 290 LBS, HT 69 IN, BMI 42.82 INDEX, BP 151/92 MM HG, HR 69 /MIN, RR 18 /MIN, TEMP 97.3 F, OXYGEN SAT % 96, SAFE IN ENV? (Y/N) Y, NA INITIALS TL 1527, REVIEWED BY: KG. EXAMINATION : PATIENT IS ALERT O X 3 AND COOPERATIVE. TENDERNESS IN THE LOWER BACK AND PARASPINAL MUSCLE GROUP. PATIENT USING BACK BRACE. ANTALGIC GAIT. SCAR OVER RIGHT SIDE FROM SURGERY, ALONG WITH SCARS FROM CERVICAL DCS. LIMPING FROM RIGHT LEG. RIGHT LEG IS WEAKER THEN THE LEFT AT EXTENSION AND FLEXION. MRI DONE ON 05/04/16 SHOWS POSTOPERATIVE CHANGES OF L2-L5 AND MILD BILATERAL NEURAL FORAMINAL NARROWING AT L5-S1. 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 SANTOS'S PAIN MANAGEMENT CASE. AT THIS TIME THE PATIENT WILL CONTINUE WITH THE SAME MEDICATION REGIME BEFORE. PATIENT DENIES ABUSE OF ANY MEDICATION, DENIES USE OF ILLEGAL SUBSTANCES, AND STATES THAT HE IS ONLY USING THE MEDICATION FOR PAIN MANAGEMENT. AT THIS TIME PATIENT REPORTS HAVING PSYCHOLOGICAL EVALUATION DONE BUT WE ARE WAITING FOR THE RESULTS THROUGH DR. KOHLI'S OFFICE. WE DISCUSSED THE PATIENT DECREASING HIS NARCOTIC MEDICATIONS FOR THE TRIAL AND PATIENT REPORTS UNDERSTANDING. PATIENT HAS BEEN RETAINING FLUID SINCE THE PREVIOUS WEEK AND WAS RECOMMENDED TO GO TO THE ER DUE TO THE CHEST PAIN AND ARM WEAKNESS THE PATIENT IS HAVING. PATIENT WILL FOLLOW UP IN 3 WEEKS TO FURTHER DISCUSS THE DCS, DO PRE-OP PAPERWORK, AND RECEIVE A REFILL ON MEDICATION. INSTRUCTIONS WERE GIVEN, QUESTIONS WERE ANSWERED, PATIENT REPORTS UNDERSTANDING AND AGREES WITH THE PLAN. I, ASHVIN DUARTE, DOCUMENTED THE ABOVE INFORMATION ACTING A SCRIBE FOR DR. MODI. I HAVE REVIEWED THE ABOVE DOCUMENT, WRITTEN BY ASHVIN CASTRO AND I VERIFY THAT IT IS ACCURATE. PROCEDURE CODES FA211 ESTABILISHED PATIENT [facility] CHARGE G8427 DOC MEDS VERIFIED W/PT OR RE G1930 PAIN ASSESS POS TOOL F/U PLAN DOC FOLLOW UP 3 WEEKS ELECTRONICALLY SIGNED BY MICHAEL MODI MD ON 09/06/2016 AT 08:56 PM EST DISCLAIMER : THIS IS A VISIT SUMMARY EXTRACTED FROM THE [employer] CHART. IT IS NOT A COPY OF THE [employer] PROGRESS NOTE. IMMANUEL
== END ==
LOC: M PAIN 15:20
PROVIDERS: ATTEND Anesthesiology
DX: Z09 Encounter for follow-up examination after completed treatment for conditions other than malignant neoplasm (principal); G89.29 Other chronic pain; M96.1 Postlaminectomy syndrome, not elsewhere classified; M51.16 Intervertebral disc disorders with radiculopathy, lumbar region; M51.17 Intervertebral disc disorders with radiculopathy, lumbosacral region; I10 Essential (primary) hypertension; F41.9 Anxiety disorder, unspecified; G90.511 Complex regional pain syndrome I of right upper limb; M48.06 Spinal stenosis, lumbar region; Z88.8 Allergy status to other drugs, medicaments and biological substances; Z79.891 Long term (current) use of opiate analgesic; Z79.899 Other long term (current) drug therapy

== ENCOUNTER → 2016-09-19 | Outpatient (CLI) | payer MEDICARE, OTHER ==
--- NOTE | 2016-10-04 00:55 | ECWPNPC ---
PATIENT NAME: WARREN SANTOS : 1970 GENDER: MALE VISIT DATE: 09/19/2016 DISCHARGE DATE: 09/19/16 1552 VISIT LOCKED DATE TIME: PHYSICIAN: AUDREY WISDOM RESOURCE: AUDREY WISDOM HISTORY OF PRESENT ILLNESS HISTORY OF PRESENT ILLNESS: PAIN THE PATIENT DESCRIBES THE PAIN... THE PATIENT DESCRIBES THE PAIN... PAIN THE PATIENT DESCRIBES THE PAIN... THE PATIENT DESCRIBES THE PAIN... FALL RISK SCREENING: SCREENING :NO FALLS IN THE PAST YEAR :NO FALLS IN THE PAST YEAR SCREENING :NO FALLS IN THE PAST YEAR :NO FALLS IN THE PAST YEAR TODAY'S VISIT: NOTES: VISIT FOR RIGHT HAND PAIN. HAS BEEN ABLE TO DECREASE MEDICATIONS BUT HAS HAD SOME ISSUES WITH POOR SLEEP, AND DEPREESED MOOD. RATES PAIN LEVEL TODAY IN THE RIGHT UPPER EXTREMITY 7/10. DESCRIBES IT CONSTANT ACHING BURNING SHARP STABBING AND SHOOTING. REPORTS THAT HIS DORSAL COLUMN STIMULATOR IS WORKING WELL AND IS KEEPING THE PAIN AT A MANAGEABLE LEVEL IN THAT RIGHT UPPER EXTREMITY. HAS BEEN WORKING ON WEANING OF MEDICATIONS WITH DR. MODI.. CURRENT MEDICATIONS TAKING VOLTAREN 1 % GEL ONE APPLICATION EXTERNALLY QID TO RIGHT UPPER EXTREMITY TAKING LIDOCAINE 5 % OINTMENT 1 APPLICATION TO AFFECTED AREA NEEDED EXTERNALLY THREE TIMES A DAY TAKING AMLODIPINE BESYLATE 5 MG TABLET 2 TABLETS ORALLY ONCE A DAY TAKING VISTARIL 25 MG CAPSULE 1 CAPSULE ORALLY EVERY6 HRS PRN ANXIETY MDD=4, NOTES: TAKING MAX 3 DAILY TAKING ATENOLOL 50 MG TABLET 1 TABLET ORALLY ONCE A DAY TAKING CYMBALTA 30 MG CAPSULE DELAYED RELEASE PARTICLES 1 CAPSULE ORALLY TID TAKING COLACE 100 MG CAPSULE 2 CAPSULE NEEDED ORALLY BID TAKING HYDROMORPHONE HCL 4 MG TABLET 1 TABLET ORALLY TAKE ONE TAB Q 6 HRS PRN PAIN MDD=3DD= TAKING OXYCODONE HCL 15 MG TABLET 1-2 TABLET ORALLY EVERY 4 HOURS PRN PAIN MDD=4 TAKING GABAPENTIN 300 MG TABLET 1 CAPSULE ORALLY THREE TIMES A DAY NOT-TAKING MELATONIN 3 MG TABLET 3 TABLET AT BEDTIME NEEDED WITH FOOD ORALLY ONCE A DAY NOT-TAKING ZOLPIDEM TARTRATE 10 MG TABLET 1 TABLET AT BEDTIME NEEDED ORALLY AT BEDTIME MDD=1 NOT-TAKING CLONAZEPAM 0.5 MG TABLET 1 -2 TABLET ORALLY Q 6 HRS PRN ANXIETY MDD=3, NOTES: TAKING MAX 3 TABS DAILY MEDICATION LIST REVIEWED AND RECONCILED WITH THE PATIENT PAST MEDICAL HISTORY HTN ANXIETY REFLEX SYMPATHETIC DYSTROPHY/COMPLEX REGIONAL PAIN SYNDROME RIGHT UPPER EXTREMITY SPINAL STENOSIS- LUMBAR ALLERGIES BUSPIRONE HCL: FACIAL RASH, SWELLING, HIVES: ALLERGY SOCIAL HISTORY GENERAL: TOBACCO USE ARE YOU A:CURRENT SMOKER ARE YOU A:CURRENT SMOKER LEARNING BARRIERS / SPECIAL NEEDS ORIENTED TO PLAN OF CARE: PATIENT, PAIN MANAGEMENT PATIENT, ORIENTED TO PLAN OF CARE: PATIENT, PAIN MANAGEMENT PATIENT, ORIENTED TO PLAN OF CARE: PATIENT, PAIN MANAGEMENT PATIENT, ORIENTED TO PLAN OF CARE: PATIENT, PAIN MANAGEMENT PATIENT. NEW PATIENT PAIN DIARY TODAY'S VISITNOTES FROM 0-10, WHAT LEVEL IS YOUR PAIN TODAY?0 TODAY'S VISITNOTES FROM 0-10, WHAT LEVEL IS YOUR PAIN TODAY?0 PAIN CLINIC PFS, CLERGY, PUBLIC HEALTH REFERRALS PFS REFERRAL NEEDED?NO CLERGY REFERRAL NEEDED?NO PUBLIC HEALTH REFERRAL NEEDED?NO WAS THE PROVIDER NOTIFIED OF ANY PERTINENT INFO?NO PFS REFERRAL NEEDED?NO CLERGY REFERRAL NEEDED?NO PUBLIC HEALTH REFERRAL NEEDED?NO WAS THE PROVIDER NOTIFIED OF ANY PERTINENT INFO?NO PFS REFERRAL NEEDED?NO CLERGY REFERRAL NEEDED?NO PUBLIC HEALTH REFERRAL NEEDED?NO WAS THE PROVIDER NOTIFIED OF ANY PERTINENT INFO?NO PFS REFERRAL NEEDED?NO CLERGY REFERRAL NEEDED?NO PUBLIC HEALTH REFERRAL NEEDED?NO WAS THE PROVIDER NOTIFIED OF ANY PERTINENT INFO?NO REVIEW OF SYSTEMS CONSTITUTIONAL: ANY CHANGE IN YOUR MEDICAL CONDITION? NO, NO . CHILLS NO, NO . FEVER NO, NO . INFECTION: DO YOU HAVE NEW INFECTIONS? NO, NO . DO YOU HAVE HISTORY OF MRSA? NO, NO . MUSCULOSKELETAL: ANY NEW PATTERNS OF PAIN OR NUMBNESS? YES, INCREASE IN PAIN IN LEGS . GASTROENTEROLOGY: ANY NEW CHANGE IN BOWEL CONTROL? NO, NO . CONSTIPATION UNDER CONTROL WITH COLACE . GENITOURINARY: ANY NEW CHANGE IN BLADDER CONTROL? NO, NO . IS THERE A CHANCE YOU COULD BE ? NO, NO . HEMATOLOGY/LYMPH: DO YOU TAKE ANY BLOOD THINNERS? (FOR EXAMPLE- COUMADIN, PLAVIX, AGGRENOX, PLATEL, PRADAXA, OR XARELTO) NO, NO . WHEN WAS YOUR LAST DOSE? DATE: TIME: , DATE: TIME: . NEUROLOGY: HAVE YOU FALLEN IN THE PAST 6 MONTHS? YES, . ANY NEW EXTREMITY NUMBNESS OR WEAKNESS? NO, NO . CARDIOLOGY: DO YOU HAVE A PACEMAKER OR DEFIBRILLATOR? NO, NO . RESPIRATORY: HAVE YOU BEEN SICK IN THE PAST WEEK? NO, NO . FEVER NO, NO . FLU LIKE SYMPTOMS? NO, NO . COUGH NO, NO . INTEGUMENTARY: DO YOU HAVE ANY RASHES OR OPEN SORES? NO, NO . ALLERGIC/IMMUNO: ARE YOU ALLERGIC TO SHELLFISH OR IV DYE? NO, NO . ANY NEW ALLERGIES? NO, NO . PSYCHIATRIC: DO YOU HAVE THOUGHTS OF HURTING YOURSELF OR SOMEONE ELSE? NO, NO . ARE YOU ABUSED, NEGLECTED, OR IN AN UNSAFE ENVIRONMENT? NO, NO . ENDOCRINOLOGY: ARE YOU DIABETIC? NO, NO . OTHER: DO YOU NEED ANY PRESCRIPTIONS? NO, NO . IF YES, PLEASE LIST: ____, ____ . ANY NEW PROBLEMS WITH YOUR MEDICATIONS? NO, NO . WHEN DID YOU LAST EAT? ____, ____ . WHEN DID YOU LAST DRINK? ____, ____ . WHAT DID YOU LAST DRINK? ____, ____ . NAME OF PERSON DRIVING YOU HOME? ____, ____ . DO YOU HAVE ANY OTHER QUESTIONS OR CONCERNS NO, NO . REVIEWED BY: PROVIDER: AUDREY MICHAEL . VITAL SIGNS WT 291.2 LBS, HT 69 IN, BMI 43.00 INDEX, BP 133/90 MM HG, HR 83 /MIN, RR 16 /MIN, TEMP 97.8 F, OXYGEN SAT % 95, NA INITIALS TL 1504, REVIEWED BY: CS. EXAMINATION GENERAL EXAMINATION: PSYCHORIENTED TO PERSON, ORIENTED TO PLACE, ORIENTED TO TIME, GOOD EYE CONTACT. HEENT:RIGHT SIDE FACIAL EDEMA. LUNGS:BILATERAL WHEEZES, NO CRACKLES. HEART:HEART RATE REGULAR. MUSCULOSKELETAL:LIMITED RANGE OF MOTION WITH RIGHT HAND MOVEMENT RIGHT UPPER ARM MOVEMENT. TRIGGER POINTS AND TIGHT FIBROUS BANDS ARE IDENTIFIED OVER THE RIGHT UPPER ARM. NO SPONTANEOUS MOVEMENT OF THE RIGHT HAND FINGER OR FINGERS IS NOTED.. EXTREMITIES:ALLODYNIA TO LIGHT TOUCH OVER RIGHT HAND AND RIGHT ARM. SOFT ARM COVER KEPT IN PLACE OVER THE RIGHT HAND AND ARM.. ASSESSMENTS COMPLEX REGIONAL PAIN SYNDROME OF RIGHT UPPER EXTREMITY - G90.511 (PRIMARY) RIGHT HAND PAIN - M79.641 CHRONICALLY ON OPIATE THERAPY - Z79.891 TREATMENT COMPLEX REGIONAL PAIN SYNDROME OF RIGHT UPPER EXTREMITY NOTES: CONTINUE CURRENT MEDS. PROCEDURE CODES FA211 ESTABILISHED PATIENT [facility] CHARGE DISPOSITION & COMMUNICATION FOLLOW UP 6 WEEKS WC RIGHT ARM ELECTRONICALLY SIGNED BY JULIO CÉSAR BRAY ON 10/03/2016 AT 02:14 PM EST DISCLAIMER : THIS IS A VISIT SUMMARY EXTRACTED FROM THE [employer] CHART. IT IS NOT A COPY OF THE [employer] PROGRESS NOTE. IMMANUEL
== END ==
LOC: M PAIN 15:00
PROVIDERS: ATTEND Nurse Practitioner Family
DX: Z09 Encounter for follow-up examination after completed treatment for conditions other than malignant neoplasm (principal); G89.29 Other chronic pain; G90.511 Complex regional pain syndrome I of right upper limb; M79.641 Pain in right hand; I10 Essential (primary) hypertension; F41.9 Anxiety disorder, unspecified; M48.06 Spinal stenosis, lumbar region; M79.1 Myalgia; F32.9 Major depressive disorder, single episode, unspecified; M51.17 Intervertebral disc disorders with radiculopathy, lumbosacral region; M96.1 Postlaminectomy syndrome, not elsewhere classified; F17.200 Nicotine dependence, unspecified, uncomplicated; Z88.8 Allergy status to other drugs, medicaments and biological substances; Z79.891 Long term (current) use of opiate analgesic; Z79.899 Other long term (current) drug therapy

== ENCOUNTER → 2016-11-01 | Outpatient (CLI) | payer MEDICARE ==
[~2016-11-01] MED LIST changes: +GABA-282 PO; -GABA300C3 PO
--- NOTE | 2016-11-07 02:32 | ECWPNPC ---
PATIENT NAME: WARREN SANTOS : 1970 GENDER: MALE VISIT DATE: 11/01/2016 DISCHARGE DATE: 11/01/16 1616 VISIT LOCKED DATE TIME: PHYSICIAN: MICHAEL MODI RESOURCE: MICHAEL MODI REASON FOR APPOINTMENT 1. PRE-OP HISTORY OF PRESENT ILLNESS HISTORY OF PRESENT ILLNESS: PAIN THE PATIENT DESCRIBES THE PAIN... 45 YEAR OLD MALE PATIENT WITH HISTORY OF CHRONIC LOW BACK PAIN. PATIENT DESCRIBES THE PAIN ACHING, BURNING, SHARP, STABBING, THROBBING, SORE, SHOOTING, AND HAVING IT ALL THE TIME WITH A PAIN SCORE OF 7-8/10 ON TODAY'S VISIT. PATIENT REPORTS THAT ANY TYPE OF ACTIVITY INCREASES THE PAIN IN HIS LOWER BACK. PATIENT STATES THAT THE PAIN IN HIS BACK DOES CAUSE HIM TO WAKE UP AT NIGHT. PATIENT DENIES UNEXPLAINABLE WEIGHT LOSS, FEVER, CHILLS, NEW CHANGES ON HIS URINARY OR BOWEL CONTROL. FALL RISK SCREENING: SCREENING :NO FALLS IN THE PAST YEAR CURRENT MEDICATIONS TAKING VOLTAREN 1 % GEL ONE APPLICATION EXTERNALLY QID TO RIGHT UPPER EXTREMITY TAKING LIDOCAINE 5 % OINTMENT 1 APPLICATION TO AFFECTED AREA NEEDED EXTERNALLY THREE TIMES A DAY TAKING VISTARIL 25 MG CAPSULE 1 CAPSULE ORALLY EVERY6 HRS PRN ANXIETY MDD=4, NOTES: TAKING MAX 3 DAILY TAKING CYMBALTA 30 MG CAPSULE DELAYED RELEASE PARTICLES 1 CAPSULE ORALLY TID TAKING COLACE 100 MG CAPSULE 2 CAPSULE NEEDED ORALLY BID TAKING GABAPENTIN 300 MG TABLET 1 CAPSULE ORALLY THREE TIMES A DAY TAKING ATENOLOL 50 MG TABLET 1 TABLET ORALLY ONCE A DAY TAKING HYDROMORPHONE HCL 4 MG TABLET 1 TABLET ORALLY TAKE ONE TAB Q 6 HRS PRN PAIN MDD=3DD= TAKING OXYCODONE HCL 15 MG TABLET 1-2 TABLET ORALLY EVERY 4 HOURS PRN PAIN MDD=4 TAKING CHLORTHALIDONE 25 MG TABLET 1 TABLET IN THE MORNING ORALLY ONCE A DAY TAKING AMLODIPINE BESYLATE 5 MG TABLET 1 TABLETS ORALLY ONCE A DAY NOT-TAKING MELATONIN 3 MG TABLET 3 TABLET AT BEDTIME NEEDED WITH FOOD ORALLY ONCE A DAY NOT-TAKING ZOLPIDEM TARTRATE 10 MG TABLET 1 TABLET AT BEDTIME NEEDED ORALLY AT BEDTIME MDD=1 NOT-TAKING CLONAZEPAM 0.5 MG TABLET 1 -2 TABLET ORALLY Q 6 HRS PRN ANXIETY MDD=3, NOTES: TAKING MAX 3 TABS DAILY MEDICATION LIST REVIEWED AND RECONCILED WITH THE PATIENT PAST MEDICAL HISTORY HTN ANXIETY REFLEX SYMPATHETIC DYSTROPHY/COMPLEX REGIONAL PAIN SYNDROME RIGHT UPPER EXTREMITY SPINAL STENOSIS- LUMBAR ALLERGIES BUSPIRONE HCL: FACIAL RASH, SWELLING, HIVES: ALLERGY SURGICAL HISTORY LAMINECTOMY/DISCECTOMY L1-S1 04/2015 DCS 07/2011 INGUINAL HERNIA REPAIR GROIN LYMPH NODE EXCISION RIGHT HAND- SCREWS/PLATE 2001 ARTHROSCOPIC KNEE SURGERY DENTAL EXTRACTIONS FAMILY HISTORY NO FAMILY HISTORY DOCUMENTED. SOCIAL HISTORY GENERAL: TOBACCO USE ARE YOU A:CURRENT SMOKER HOW MANY CIGARETTES A DAY DO YOU SMOKE?11-20 HOW SOON AFTER YOU WAKE UP DO YOU SMOKE YOUR FIRST CIGARETTE?WITHIN 5 MIN HOW OFTEN DO YOU SMOKE CIGARETTES?EVERY DAY PATIENT COUNSELED ON THE DANGERS OF TOBACCO USE AND URGED TO QUIT:09/25/2016 ARE YOU INTERESTED IN QUITTING?NOT READY TO QUIT COUNSELED THE PATIENT ON SMOKING EFFECTS, EDUCATION [id number]/14/2017 SMOKING CESSATION INFORMATION GIVEN09/25/2016 ALCOHOL SCREENING DID YOU HAVE A DRINK CONTAINING ALCOHOL IN THE PAST YEAR?NO POINTS0 INTERPRETATIONNEGATIVE RECREATIONAL DRUG USE DRUG USE?NO CAFFEINE CAFFEINE USE?YES HOW OFTEN AND HOW MUCH? 2 COFFEES DAILY HIV / HEP-C SCREENING HIV TEST OFFERED TO PATIENT:YES DATE OFFERED:09/25/2016 TEST ACCEPTED:NO REASON:PATIENT DECLINED HEP-C TEST OFFERED TO PATIENT:NO OCCUPATION: DISABLED. DIET: REGULAR. EXERCISE: NO REGULAR EXERCISE. MARITAL STATUS: SINGLE. OTHERS AT HOME: SPOUSE, CHILD. PRESYBETERIAN: NO [employer] BELIEFS THAT WOULD IMPACT HEALTH CARE. LANGUAGE: URUGUAYAN. LEARNING BARRIERS / SPECIAL NEEDS CHANGE FROM LAST VISIT?NO BARRIERS TO LEARNING?NO HEARING IMPAIRED?NO VISION IMPAIRED?NO COGNITIVELY IMPAIRED?NO READINESS TO LEARN?YES LEARNING PREFERENCES?NO LEARNING CAPABILITIES PRESENT?YES EMOTIONAL BARRIERS?NO SPECIAL DEVICES?NO NEW PATIENT PAIN DIARY TODAY'S VISITNOTES FROM 0-10, WHAT LEVEL IS YOUR PAIN TODAY?0 TODAY'S VISITNOTES FROM 0-10, WHAT LEVEL IS YOUR PAIN TODAY?0 PAIN CLINIC PFS, CLERGY, PUBLIC HEALTH REFERRALS PFS REFERRAL NEEDED?NO CLERGY REFERRAL NEEDED?NO PUBLIC HEALTH REFERRAL NEEDED?NO WAS THE PROVIDER NOTIFIED OF ANY PERTINENT INFO?NO PFS REFERRAL NEEDED?NO CLERGY REFERRAL NEEDED?NO PUBLIC HEALTH REFERRAL NEEDED?NO WAS THE PROVIDER NOTIFIED OF ANY PERTINENT INFO?NO PFS REFERRAL NEEDED?NO CLERGY REFERRAL NEEDED?NO PUBLIC HEALTH REFERRAL NEEDED?NO WAS THE PROVIDER NOTIFIED OF ANY PERTINENT INFO?NO PFS REFERRAL NEEDED?NO CLERGY REFERRAL NEEDED?NO PUBLIC HEALTH REFERRAL NEEDED?NO WAS THE PROVIDER NOTIFIED OF ANY PERTINENT INFO?NO HOSPITALIZATION/MAJOR DIAGNOSTIC PROCEDURE SURGERIES ACUTE RENAL FAILURE 03/2016 REVIEW OF SYSTEMS CONSTITUTIONAL: ANY CHANGE IN YOUR MEDICAL CONDITION? NO . CHILLS NO . FEVER NO . INFECTION: DO YOU HAVE NEW INFECTIONS? NO . DO YOU HAVE HISTORY OF MRSA? NO . MUSCULOSKELETAL: ANY NEW PATTERNS OF PAIN OR NUMBNESS? NO . GASTROENTEROLOGY: ANY NEW CHANGE IN BOWEL CONTROL? NO . GENITOURINARY: ANY NEW CHANGE IN BLADDER CONTROL? NO . IS THERE A CHANCE YOU COULD BE ? NO . HEMATOLOGY/LYMPH: DO YOU TAKE ANY BLOOD THINNERS? (FOR EXAMPLE- COUMADIN, PLAVIX, AGGRENOX, PLATEL, PRADAXA, OR XARELTO) NO . WHEN WAS YOUR LAST DOSE? DATE: TIME: . NEUROLOGY: HAVE YOU FALLEN IN THE PAST 6 MONTHS? YES . ANY NEW EXTREMITY NUMBNESS OR WEAKNESS? NO . CARDIOLOGY: DO YOU HAVE A PACEMAKER OR DEFIBRILLATOR? NO . RESPIRATORY: HAVE YOU BEEN SICK IN THE PAST WEEK? NO . FEVER NO . FLU LIKE SYMPTOMS? NO . COUGH NO . INTEGUMENTARY: DO YOU HAVE ANY RASHES OR OPEN SORES? NO . ALLERGIC/IMMUNO: ARE YOU ALLERGIC TO SHELLFISH OR IV DYE? NO . ANY NEW ALLERGIES? NO . PSYCHIATRIC: DO YOU HAVE THOUGHTS OF HURTING YOURSELF OR SOMEONE ELSE? NO . ARE YOU ABUSED, NEGLECTED, OR IN AN UNSAFE ENVIRONMENT? NO . ENDOCRINOLOGY: ARE YOU DIABETIC? NO . OTHER: DO YOU NEED ANY PRESCRIPTIONS? NO . IF YES, PLEASE LIST: ____ . ANY NEW PROBLEMS WITH YOUR MEDICATIONS? NO . WHEN DID YOU LAST EAT? ____ . WHEN DID YOU LAST DRINK? ____ . WHAT DID YOU LAST DRINK? ____ . NAME OF PERSON DRIVING YOU HOME? ____ . DO YOU HAVE ANY OTHER QUESTIONS OR CONCERNS NO . REVIEWED BY: PROVIDER: MICHAEL MODI MD . VITAL SIGNS WT 289.0 LBS, HT 69 IN, BMI 42.67 INDEX, BP 138/76 MM HG, HR 69 /MIN, RR 18 /MIN, TEMP 97.4 F, OXYGEN SAT % 94, NA INITIALS TL 1437. EXAMINATION : PATIENT IS ALERT O X 3 AND COOPERATIVE. TENDERNESS IN THE LOWER BACK AND PARASPINAL MUSCLE GROUP. PATIENT USING BACK BRACE. ANTALGIC GAIT. SCAR OVER RIGHT SIDE FROM SURGERY, ALONG WITH SCARS FROM CERVICAL DCS. LIMPING FROM RIGHT LEG. RIGHT LEG IS WEAKER THEN THE LEFT AT EXTENSION AND FLEXION. MRI DONE ON 05/04/16 SHOWS POSTOPERATIVE CHANGES OF L2-L5 AND MILD BILATERAL NEURAL FORAMINAL NARROWING AT L5-S1. 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 SANTOS'S PAIN MANAGEMENT CASE. AT THIS TIME THE PATIENT WILL CONTINUE WITH THE SAME MEDICATION REGIME BEFORE. PATIENT DENIES ABUSE OF ANY MEDICATION, DENIES USE OF ILLEGAL SUBSTANCES, AND STATES THAT HE IS ONLY USING THE MEDICATION FOR PAIN MANAGEMENT. I DISCUSSED WITH THE PATIENT ABOUT MOVING FORWARD WITH THE DCS. PATIENT WILL FOLLOW UP WITH ME IN 2 WEEKS TO FILL OUT THE PRE OP PAPERWORK. , INSTRUCTIONS WERE GIVEN, QUESTIONS WERE ANSWERED, PATIENT REPORTS UNDERSTANDING AND AGREES WITH THE PLAN. I, GIA ANN, DOCUMENTED THE ABOVE INFORMATION ACTING A SCRIBE FOR DR. MODI. I HAVE REVIEWED THE ABOVE DOCUMENT, WRITTEN BY GIA ANN SCRIBDeanna AND I VERIFY THAT IT IS ACCURATE. PROCEDURE CODES FA211 ESTABILISHED PATIENT [facility] CHARGE G8730 PAIN ASSESS POS TOOL F/U PLAN DOC G8427 DOC MEDS VERIFIED W/PT OR RE DISPOSITION & COMMUNICATION FOLLOW UP 2 WEEKS ELECTRONICALLY SIGNED BY MICHAEL MODI MD ON 11/05/2016 AT 06:01 PM EDT DISCLAIMER : THIS IS A VISIT SUMMARY EXTRACTED FROM THE [employer] CHART. IT IS NOT A COPY OF THE [employer] PROGRESS NOTE. AILEEND
== END ==
LOC: M PAIN 14:00
PROVIDERS: ATTEND Anesthesiology
DX: Z09 Encounter for follow-up examination after completed treatment for conditions other than malignant neoplasm (principal); G89.29 Other chronic pain; M96.1 Postlaminectomy syndrome, not elsewhere classified; M51.16 Intervertebral disc disorders with radiculopathy, lumbar region; M51.17 Intervertebral disc disorders with radiculopathy, lumbosacral region; I10 Essential (primary) hypertension; F41.9 Anxiety disorder, unspecified; K21.9 Gastro-esophageal reflux disease without esophagitis; M48.06 Spinal stenosis, lumbar region; Z88.8 Allergy status to other drugs, medicaments and biological substances; F17.200 Nicotine dependence, unspecified, uncomplicated; Z79.891 Long term (current) use of opiate analgesic; Z79.899 Other long term (current) drug therapy

== ENCOUNTER → 2016-11-01 | Outpatient (CLI) | payer OTHER, MEDICARE ==
[~2016-11-01] MED LIST changes: -GABA-282 PO; +GABA300C3 PO
--- NOTE | 2016-11-10 01:09 | ECWPNPC ---
PATIENT NAME: WARREN SANTOS : 1970 GENDER: MALE VISIT DATE: 11/01/2016 DISCHARGE DATE: 11/01/16 1655 VISIT LOCKED DATE TIME: PHYSICIAN: AUDREY WISDOM RESOURCE: AUDREY WISDOM REASON FOR APPOINTMENT 1. ARM HISTORY OF PRESENT ILLNESS HISTORY OF PRESENT ILLNESS: PAIN THE PATIENT DESCRIBES THE PAIN... FALL RISK SCREENING: SCREENING :NO FALLS IN THE PAST YEAR TODAY'S VISIT: NOTES: VISIT FOR RIGHT HAND ARM PAIN. RATES PAIN TODAY 6-7/10.DORSAL COLUMN STIMULATOR IS PROVIDING GOOD COVERAGE FOR THE RIGHT HAND AND ARM ALTHOUGH STILL HAS SIGNIFICANT DIFFICULTY WITH FUNCTION AND A CONSIDERABLE AMUT OF PAIN. .STILL WITH TIGHTNESS IN UPPER ARM. UNABLE TO STRAIGHTEN FINGERS DUE TO ARM. . CURRENT MEDICATIONS TAKING VOLTAREN 1 % GEL ONE APPLICATION EXTERNALLY QID TO RIGHT UPPER EXTREMITY TAKING LIDOCAINE 5 % OINTMENT 1 APPLICATION TO AFFECTED AREA NEEDED EXTERNALLY THREE TIMES A DAY TAKING VISTARIL 25 MG CAPSULE 1 CAPSULE ORALLY EVERY6 HRS PRN ANXIETY MDD=4, NOTES: TAKING MAX 3 DAILY TAKING CYMBALTA 30 MG CAPSULE DELAYED RELEASE PARTICLES 1 CAPSULE ORALLY TID TAKING COLACE 100 MG CAPSULE 2 CAPSULE NEEDED ORALLY BID TAKING GABAPENTIN 300 MG TABLET 1 CAPSULE ORALLY THREE TIMES A DAY TAKING ATENOLOL 50 MG TABLET 1 TABLET ORALLY ONCE A DAY TAKING HYDROMORPHONE HCL 4 MG TABLET 1 TABLET ORALLY TAKE ONE TAB Q 6 HRS PRN PAIN MDD=3DD= TAKING OXYCODONE HCL 15 MG TABLET 1-2 TABLET ORALLY EVERY 4 HOURS PRN PAIN MDD=4 TAKING CHLORTHALIDONE 25 MG TABLET 1 TABLET IN THE MORNING ORALLY ONCE A DAY TAKING AMLODIPINE BESYLATE 5 MG TABLET 1 TABLETS ORALLY ONCE A DAY NOT-TAKING MELATONIN 3 MG TABLET 3 TABLET AT BEDTIME NEEDED WITH FOOD ORALLY ONCE A DAY NOT-TAKING ZOLPIDEM TARTRATE 10 MG TABLET 1 TABLET AT BEDTIME NEEDED ORALLY AT BEDTIME MDD=1 NOT-TAKING CLONAZEPAM 0.5 MG TABLET 1 -2 TABLET ORALLY Q 6 HRS PRN ANXIETY MDD=3, NOTES: TAKING MAX 3 TABS DAILY MEDICATION LIST REVIEWED AND RECONCILED WITH THE PATIENT PAST MEDICAL HISTORY HTN ANXIETY REFLEX SYMPATHETIC DYSTROPHY/COMPLEX REGIONAL PAIN SYNDROME RIGHT UPPER EXTREMITY SPINAL STENOSIS- LUMBAR ALLERGIES BUSPIRONE HCL: FACIAL RASH, SWELLING, HIVES: ALLERGY SOCIAL HISTORY GENERAL: TOBACCO USE ARE YOU A:CURRENT SMOKER HOW MANY CIGARETTES A DAY DO YOU SMOKE?11-20 HOW SOON AFTER YOU WAKE UP DO YOU SMOKE YOUR FIRST CIGARETTE?WITHIN 5 MIN HOW OFTEN DO YOU SMOKE CIGARETTES?EVERY DAY PATIENT COUNSELED ON THE DANGERS OF TOBACCO USE AND URGED TO QUIT:11/01/2016 ARE YOU INTERESTED IN QUITTING?NOT READY TO QUIT COUNSELED THE PATIENT ON SMOKING EFFECTS, EDUCATION [id number]/23/2017 SMOKING CESSATION INFORMATION GIVEN09/25/2016 ALCOHOL SCREENING DID YOU HAVE A DRINK CONTAINING ALCOHOL IN THE PAST YEAR?NO POINTS0 INTERPRETATIONNEGATIVE RECREATIONAL DRUG USE DRUG USE?NO CAFFEINE CAFFEINE USE?YES HOW OFTEN AND HOW MUCH? 2 COFFEES DAILY HIV / HEP-C SCREENING HIV TEST OFFERED TO PATIENT:YES DATE OFFERED:09/25/2016 TEST ACCEPTED:NO REASON:PATIENT DECLINED HEP-C TEST OFFERED TO PATIENT:NO OCCUPATION: DISABLED. DIET: REGULAR. EXERCISE: NO REGULAR EXERCISE. MARITAL STATUS: SINGLE. OTHERS AT HOME: SPOUSE, CHILD. EPISCOPAL NO ORTHODOX BELIEFS THAT WOULD IMPACT HEALTH CARE. LANGUAGE KYRGYZ. LEARNING BARRIERS / SPECIAL NEEDS CHANGE FROM LAST VISIT?NO BARRIERS TO LEARNING?NO HEARING IMPAIRED?NO VISION IMPAIRED?NO COGNITIVELY IMPAIRED?NO READINESS TO LEARN?YES LEARNING PREFERENCES?NO LEARNING CAPABILITIES PRESENT?YES EMOTIONAL BARRIERS?NO SPECIAL DEVICES?NO NEW PATIENT PAIN DIARY TODAY'S VISITNOTES FROM 0-10, WHAT LEVEL IS YOUR PAIN TODAY?0 TODAY'S VISITNOTES FROM 0-10, WHAT LEVEL IS YOUR PAIN TODAY?0 PAIN CLINIC PFS, CLERGY, PUBLIC HEALTH REFERRALS PFS REFERRAL NEEDED?NO CLERGY REFERRAL NEEDED?NO PUBLIC HEALTH REFERRAL NEEDED?NO WAS THE PROVIDER NOTIFIED OF ANY PERTINENT INFO?NO PFS REFERRAL NEEDED?NO CLERGY REFERRAL NEEDED?NO PUBLIC HEALTH REFERRAL NEEDED?NO WAS THE PROVIDER NOTIFIED OF ANY PERTINENT INFO?NO PFS REFERRAL NEEDED?NO CLERGY REFERRAL NEEDED?NO PUBLIC HEALTH REFERRAL NEEDED?NO WAS THE PROVIDER NOTIFIED OF ANY PERTINENT INFO?NO PFS REFERRAL NEEDED?NO CLERGY REFERRAL NEEDED?NO PUBLIC HEALTH REFERRAL NEEDED?NO WAS THE PROVIDER NOTIFIED OF ANY PERTINENT INFO?NO REVIEW OF SYSTEMS CONSTITUTIONAL: ANY CHANGE IN YOUR MEDICAL CONDITION? NO . CHILLS NO . FEVER NO . INFECTION: DO YOU HAVE NEW INFECTIONS? NO . DO YOU HAVE HISTORY OF MRSA? NO . MUSCULOSKELETAL: ANY NEW PATTERNS OF PAIN OR NUMBNESS? NO . GASTROENTEROLOGY: ANY NEW CHANGE IN BOWEL CONTROL? NO . GENITOURINARY: ANY NEW CHANGE IN BLADDER CONTROL? NO . IS THERE A CHANCE YOU COULD BE ? NO . HEMATOLOGY/LYMPH: DO YOU TAKE ANY BLOOD THINNERS? (FOR EXAMPLE- COUMADIN, PLAVIX, AGGRENOX, PLATEL, PRADAXA, OR XARELTO) NO . WHEN WAS YOUR LAST DOSE? DATE: TIME: . NEUROLOGY: HAVE YOU FALLEN IN THE PAST 6 MONTHS? YES, FALLS ALL THE TIME--HIS LEGS GIVE OUT . ANY NEW EXTREMITY NUMBNESS OR WEAKNESS? NO . CARDIOLOGY: DO YOU HAVE A PACEMAKER OR DEFIBRILLATOR? NO . RESPIRATORY: HAVE YOU BEEN SICK IN THE PAST WEEK? NO . FEVER NO . FLU LIKE SYMPTOMS? NO . COUGH NO . INTEGUMENTARY: DO YOU HAVE ANY RASHES OR OPEN SORES? NO . ALLERGIC/IMMUNO: ARE YOU ALLERGIC TO SHELLFISH OR IV DYE? NO . ANY NEW ALLERGIES? NO . PSYCHIATRIC: DO YOU HAVE THOUGHTS OF HURTING YOURSELF OR SOMEONE ELSE? NO . ARE YOU ABUSED, NEGLECTED, OR IN AN UNSAFE ENVIRONMENT? NO . ENDOCRINOLOGY: ARE YOU DIABETIC? NO . OTHER: DO YOU NEED ANY PRESCRIPTIONS? NO . IF YES, PLEASE LIST: ____ . ANY NEW PROBLEMS WITH YOUR MEDICATIONS? NO . WHEN DID YOU LAST EAT? ____ . WHEN DID YOU LAST DRINK? ____ . WHAT DID YOU LAST DRINK? ____ . NAME OF PERSON DRIVING YOU HOME? ____ . DO YOU HAVE ANY OTHER QUESTIONS OR CONCERNS NO . REVIEWED BY: PROVIDER: AUDREY MICHAEL . VITAL SIGNS WT 289 LBS, HT 69 IN, BMI 42.67 INDEX, BP 138/88 MM HG, HR 65 /MIN, RR 16 /MIN, TEMP 97.4 F, OXYGEN SAT % 94, REVIEWED BY: AD. EXAMINATION GENERAL EXAMINATION: PSYCHORIENTED TO PERSON, ORIENTED TO PLACE, ORIENTED TO TIME, GOOD EYE CONTACT. LUNGS: CLEAR TO AUSCULTATION BILATERALLY. HEART:HEART RATE REGULAR. MUSCULOSKELETAL:LIMITED RANGE OF MOTION WITH RIGHT HAND MOVEMENT RIGHT UPPER ARM MOVEMENT. TRIGGER POINTS AND TIGHT FIBROUS BANDS ARE IDENTIFIED OVER THE RIGHT UPPER ARM. NO SPONTANEOUS MOVEMENT OF THE RIGHT HAND FINGER OR FINGERS IS NOTED ALTHOUGH TODAY DOES HAVE BETTER MOVEMENT WITH FLEXION AND EXTENSION OF THE RIGHT WRIST.. EXTREMITIES:ALLODYNIA TO LIGHT TOUCH OVER RIGHT HAND AND RIGHT ARM. SOFT ARM COVER KEPT IN PLACE OVER THE RIGHT HAND AND ARM.. ASSESSMENTS RIGHT HAND PAIN - M79.641 CHRONICALLY ON OPIATE THERAPY - Z79.891 NEURALGIA - M79.2 TREATMENT RIGHT HAND PAIN NOTES: WE WILL SLOWLY CONTINUE WEAN OF OPIATES. CONTINUE CURRENT MEDS AT THIS TIME. DO EXCERSIES TO RIGHT ARM AND HAND TOLERATED. WALK TOLERATED. CLINICAL NOTES: ISTOP REGISTRY REVIEWED AND DEMNOSTRATES COMPLLIANCE. BRINGS IN MEDICATIONS WHICH IS APPROPRIATE FOR WHAT WAS DISPENSED. RECENT URINE TOXICOLOGY REVIEWED. NO UNAUTHORIZED MEDICATIONS. NO ILLICIT SUBSTANCES AND PRESCRIBED MEDICATIONS WERE PRESENT. OTHERS NOTES: CONTINUE CURRENT MEDS. PROCEDURES PN WORKMANS' COMP OPINION IN YOUR OPINION, WAS THE INCIDENT THAT THE PATIENT DESCRIBED THE COMPETENT MEDICAL CAUSE OF THIS INJURY/ILLNESS? YES ARE THE PATIENT'S COMPLAINTS CONSISTENT WITH HIS/HER HISTORY OF THE INJURY/ILLNESS? YES IS THE PATIENT'S HISTORY OF THE INJURY/ILLNESS CONSISTENT WITH YOUR OBJECTIVE FINDING? YES WHAT IS THE PERCENTAGE OF TEMPORARY IMPAIRMENT? TOTAL = 100% IS THE PATIENT WORKING? NO DOCTOR ON SITE: MICHAEL VICTOR MD DISPOSITION & COMMUNICATION FOLLOW UP 6 WEEKS (REASON: WC RIGHT HAND/ARM) ELECTRONICALLY SIGNED BY JULIO CÉSAR BRAY ON 11/09/2016 AT 07:12 PM EDT DISCLAIMER : THIS IS A VISIT SUMMARY EXTRACTED FROM THE [employer] CHART. IT IS NOT A COPY OF THE [employer] PROGRESS NOTE. IMMANUEL
== END ==
LOC: M PAIN 15:00
PROVIDERS: ATTEND Nurse Practitioner Family
DX: Z09 Encounter for follow-up examination after completed treatment for conditions other than malignant neoplasm (principal); G89.29 Other chronic pain; M79.641 Pain in right hand; M79.2 Neuralgia and neuritis, unspecified; I10 Essential (primary) hypertension; F41.9 Anxiety disorder, unspecified; M48.06 Spinal stenosis, lumbar region; F17.200 Nicotine dependence, unspecified, uncomplicated; Z88.8 Allergy status to other drugs, medicaments and biological substances; Z79.891 Long term (current) use of opiate analgesic; Z79.899 Other long term (current) drug therapy; Z91.81 History of falling

== ENCOUNTER → 2016-11-21 | Outpatient (CLI) | payer MEDICARE ==
[~2016-11-21] MED LIST changes: +AMLO5TAB2 PO; +GABA-282 PO; -GABA300C3 PO; +OXYC15TA76 PO
--- NOTE | 2016-12-03 00:06 | ECWPNPC ---
PATIENT NAME: WARREN SANTOS : 1970 GENDER: MALE VISIT DATE: 11/21/2016 DISCHARGE DATE: 11/21/16 1703 VISIT LOCKED DATE TIME: PHYSICIAN: MICHAEL MODI RESOURCE: MICHAEL MODI REASON FOR APPOINTMENT 1. BACK PAIN HISTORY OF PRESENT ILLNESS HISTORY OF PRESENT ILLNESS: PAIN THE PATIENT DESCRIBES THE PAIN... 45 YEAR OLD MALE PATIENT WITH HISTORY OF CHRONIC LOW BACK PAIN. PATIENT DESCRIBES THE PAIN ACHING, BURNING, SHARP, STABBING, THROBBING, SORE, SHOOTING, AND HAVING IT ALL THE TIME WITH A PAIN SCORE OF 7-8/10 ON TODAY'S VISIT. PATIENT REPORTS THAT ANY TYPE OF ACTIVITY INCREASES THE PAIN IN HIS LOWER BACK. PATIENT STATES THAT THE PAIN IN HIS BACK DOES CAUSE HIM TO WAKE UP AT NIGHT. PATIENT IS CURRENTLY USING CYMBALTA, GABAPENTIN, HYDROMORPHONE, AND OXYCODONE AND STATES THAT IT KEEPS HIM MOBILE AND FUNCTIONAL. PATIENT REPROTS HE WILL WEEN HIMSELF BEFORE THE DCS TRIAL. PATIENT DENIES UNEXPLAINABLE WEIGHT LOSS, FEVER, CHILLS, NEW CHANGES ON HIS URINARY OR BOWEL CONTROL. FALL RISK SCREENING: SCREENING :NO FALLS IN THE PAST YEAR CURRENT MEDICATIONS TAKING VOLTAREN 1 % GEL ONE APPLICATION EXTERNALLY QID TO RIGHT UPPER EXTREMITY TAKING LIDOCAINE 5 % OINTMENT 1 APPLICATION TO AFFECTED AREA NEEDED EXTERNALLY THREE TIMES A DAY TAKING VISTARIL 25 MG CAPSULE 1 CAPSULE ORALLY EVERY6 HRS PRN ANXIETY MDD=4, NOTES: TAKING MAX 3 DAILY TAKING CYMBALTA 30 MG CAPSULE DELAYED RELEASE PARTICLES 1 CAPSULE ORALLY TID TAKING COLACE 100 MG CAPSULE 2 CAPSULE NEEDED ORALLY BID TAKING GABAPENTIN 300 MG TABLET 1 CAPSULE ORALLY THREE TIMES A DAY TAKING HYDROCORTISONE 2.5 % CREAM 1 APPLICATION TO AFFECTED AREA EXTERNALLY TWICE A DAY TAKING HYDROMORPHONE HCL 4 MG TABLET 1 TABLET ORALLY TAKE ONE TAB Q 6 HRS PRN PAIN MDD=3DD= TAKING OXYCODONE HCL 15 MG TABLET 1-2 TABLET ORALLY EVERY 4 HOURS PRN PAIN MDD=4 TAKING ATENOLOL 50 MG TABLET 1 TABLET ORALLY ONCE A DAY TAKING AMLODIPINE BESYLATE 5 MG TABLET 1 TABLETS ORALLY ONCE A DAY TAKING CHLORTHALIDONE 25 MG TABLET 1 TABLET IN THE MORNING ORALLY ONCE A DAY NOT-TAKING MELATONIN 3 MG TABLET 3 TABLET AT BEDTIME NEEDED WITH FOOD ORALLY ONCE A DAY NOT-TAKING ZOLPIDEM TARTRATE 10 MG TABLET 1 TABLET AT BEDTIME NEEDED ORALLY AT BEDTIME MDD=1 NOT-TAKING CLONAZEPAM 0.5 MG TABLET 1 -2 TABLET ORALLY Q 6 HRS PRN ANXIETY MDD=3, NOTES: TAKING MAX 3 TABS DAILY MEDICATION LIST REVIEWED AND RECONCILED WITH THE PATIENT PAST MEDICAL HISTORY HTN ANXIETY REFLEX SYMPATHETIC DYSTROPHY/COMPLEX REGIONAL PAIN SYNDROME RIGHT UPPER EXTREMITY SPINAL STENOSIS- LUMBAR ALLERGIES BUSPIRONE HCL: FACIAL RASH, SWELLING, HIVES: ALLERGY SURGICAL HISTORY LAMINECTOMY/DISCECTOMY L1-S1 04/2015 DCS 07/2011 INGUINAL HERNIA REPAIR GROIN LYMPH NODE EXCISION RIGHT HAND- SCREWS/PLATE 2001 ARTHROSCOPIC KNEE SURGERY DENTAL EXTRACTIONS FAMILY HISTORY NO FAMILY HISTORY DOCUMENTED. SOCIAL HISTORY GENERAL: PAIN CLINIC PFS, CLERGY, PUBLIC HEALTH REFERRALS CLERGY REFERRAL NEEDED?NO WAS THE PROVIDER NOTIFIED OF ANY PERTINENT INFO?NO PFS REFERRAL NEEDED?NO PUBLIC HEALTH REFERRAL NEEDED?NO PATIENT: ____. HOSPITALIZATION/MAJOR DIAGNOSTIC PROCEDURE SURGERIES ACUTE RENAL FAILURE 03/2016 REVIEW OF SYSTEMS CONSTITUTIONAL: ANY CHANGE IN YOUR MEDICAL CONDITION? NO . CHILLS NO . FEVER NO . INFECTION: DO YOU HAVE NEW INFECTIONS? NO . DO YOU HAVE HISTORY OF MRSA? NO . MUSCULOSKELETAL: ANY NEW PATTERNS OF PAIN OR NUMBNESS? NO . GASTROENTEROLOGY: ANY NEW CHANGE IN BOWEL CONTROL? NO . GENITOURINARY: ANY NEW CHANGE IN BLADDER CONTROL? NO . IS THERE A CHANCE YOU COULD BE ? NO . HEMATOLOGY/LYMPH: DO YOU TAKE ANY BLOOD THINNERS? (FOR EXAMPLE- COUMADIN, PLAVIX, AGGRENOX, PLATEL, PRADAXA, OR XARELTO) NO . WHEN WAS YOUR LAST DOSE? DATE: TIME: . NEUROLOGY: HAVE YOU FALLEN IN THE PAST 6 MONTHS? NO . ANY NEW EXTREMITY NUMBNESS OR WEAKNESS? NO . CARDIOLOGY: DO YOU HAVE A PACEMAKER OR DEFIBRILLATOR? NO . RESPIRATORY: HAVE YOU BEEN SICK IN THE PAST WEEK? NO . FEVER NO . FLU LIKE SYMPTOMS? NO . COUGH NO . INTEGUMENTARY: DO YOU HAVE ANY RASHES OR OPEN SORES? YES PT HAS MULTIPLE SMALL OPEN AREAS ON BOTH HANDS, ARMS, ANKLES. THEY START BLISTERS, THEN BECOME OPEN AFTER THE BLISTERS POP. PT HAS SEEN HIS PCP ABOUT THIS AND RULED OUT SCABIES, INSECT BITES, . ALLERGIC/IMMUNO: ARE YOU ALLERGIC TO SHELLFISH OR IV DYE? NO . ANY NEW ALLERGIES? NO . PSYCHIATRIC: DO YOU HAVE THOUGHTS OF HURTING YOURSELF OR SOMEONE ELSE? NO . ARE YOU ABUSED, NEGLECTED, OR IN AN UNSAFE ENVIRONMENT? NO . ENDOCRINOLOGY: ARE YOU DIABETIC? NO . OTHER: DO YOU NEED ANY PRESCRIPTIONS? NO . IF YES, PLEASE LIST: ____ . ANY NEW PROBLEMS WITH YOUR MEDICATIONS? NO . WHEN DID YOU LAST EAT? ____ . WHEN DID YOU LAST DRINK? ____ . WHAT DID YOU LAST DRINK? ____ . NAME OF PERSON DRIVING YOU HOME? ____ . DO YOU HAVE ANY OTHER QUESTIONS OR CONCERNS NO . REVIEWED BY: PROVIDER: MICHAEL MODI MD . VITAL SIGNS WT 290.12 LBS, HT 69 IN, BMI 42.84 INDEX, BP 142/69 MM HG, HR 71 /MIN, RR 18 /MIN, TEMP 98.2 F, OXYGEN SAT % 95%, SAFE IN ENV? (Y/N) YES, NA INITIALS MT 16:07, REVIEWED BY: PATRIC. EXAMINATION : PATIENT IS ALERT O X 3 AND COOPERATIVE. TENDERNESS IN THE LOWER BACK AND PARASPINAL MUSCLE GROUP. PATIENT USING BACK BRACE. ANTALGIC GAIT. SCAR OVER RIGHT SIDE FROM SURGERY, ALONG WITH SCARS FROM CERVICAL DCS. LIMPING FROM RIGHT LEG. RIGHT LEG IS WEAKER THEN THE LEFT AT EXTENSION AND FLEXION. MRI DONE ON 05/04/16 SHOWS POSTOPERATIVE CHANGES OF L2-L5 AND MILD BILATERAL NEURAL FORAMINAL NARROWING AT L5-S1. 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 SANTOS'S PAIN MANAGEMENT CASE. AT THIS TIME THE PATIENT IS PREPARED TO MOVE FORWARD WITH THE DCS TRIAL. PATIENT IS AWARE THAT HE SHOULD NOT USE PAIN MEDICATION THROUGH THE TRIAL TO HAVE AN ACCURATE TRIAL. PATIENT IS AWARE THAT HE WILL STAY ONE NIGHT IN THE HOSPITAL TO RECEIVE ANTIBIOTICS THROUGH IV AND WILL THEN TAKE AN ORAL ANTIBIOTIC. MR. SANTOS WILL RETURN THE FOLLOWING SATURDAY TO DISCUSS THE RESULTS AND TO HAVE THE LEADS PULLED. PATIENT IS AWARE THAT THROUGHOUT THE TRIAL IS THERE IS ANY CONCERNS HE MAY COME TO THE CLINIC TO BE SEEN WITHOUT AN APPOINTMENT. INSTRUCTIONS WERE GIVEN, QUESTIONS WERE ANSWERED, PATIENT REPORTS UNDERSTANDING AND AGREES WITH THE PLAN. I, ASHVIN DUARTE, DOCUMENTED THE ABOVE INFORMATION ACTING A SCRIBE FOR DR. MODI. I HAVE REVIEWED THE ABOVE DOCUMENT, WRITTEN BY ASHVIN CASTRO AND I VERIFY THAT IT IS ACCURATE. PROCEDURE CODES FA211 ESTABILISHED PATIENT [facility] CHARGE G8427 DOC MEDS VERIFIED W/PT OR RE G8730 PAIN ASSESS POS TOOL F/U PLAN DOC DISPOSITION & COMMUNICATION FOLLOW UP DCS TRIAL 12/03/16 ELECTRONICALLY SIGNED BY MICHAEL MODI MD ON 12/02/2016 AT 04:39 PM EDT DISCLAIMER : THIS IS A VISIT SUMMARY EXTRACTED FROM THE [employer] CHART. IT IS NOT A COPY OF THE [employer] PROGRESS NOTE. AILEEND
== END ==
LOC: M PAIN 15:45
PROVIDERS: ATTEND Anesthesiology
DX: M96.1 Postlaminectomy syndrome, not elsewhere classified (principal); M51.16 Intervertebral disc disorders with radiculopathy, lumbar region; M51.17 Intervertebral disc disorders with radiculopathy, lumbosacral region; I10 Essential (primary) hypertension; F41.9 Anxiety disorder, unspecified; Z88.8 Allergy status to other drugs, medicaments and biological substances; G90.511 Complex regional pain syndrome I of right upper limb; M79.1 Myalgia; F32.9 Major depressive disorder, single episode, unspecified; Z79.891 Long term (current) use of opiate analgesic; Z79.899 Other long term (current) drug therapy

== ENCOUNTER 2016-12-03 08:34 | Day surgery (SDC) | payer OTHER, MEDICARE ==
[2016-12-03] VITALS (7 sets, daily range): BP systolic 108–148; BP diastolic 55–82
[~2016-12-03] VITALS: Ht 177.8 cm; Wt 131.5 kg
[2016-12-03] MEDS ORDERED: ceFAZolin SOD 1 GM in D5W MINI-BAG PLUS 50 ML IV ONE ×2 (08:45→18:00)
[2016-12-03] MEDS ORDERED: LIDOCAINE 2% INJ 100 MG/5 ML SDV (FOR ANES.) As Ordered ONE (09:18)
[2016-12-03] MEDS ORDERED: PROPOFOL 200 MG/20 ML VIAL As Ordered ONE (09:18)
[2016-12-03] MEDS ORDERED: fentaNYL 100 MCG/2 ML INJECTION (J3010) As Ordered ONE ×3 (09:18→11:08)
[2016-12-03] MEDS ORDERED: MIDAZOLAM INJ 2 MG/2 ML VIAL (J2250) As Ordered ONE ×2 (09:18→11:03)
[2016-12-03] MEDS ORDERED: BUPIVACAINE HCL 0.25% 30 ML VIAL As Ordered ONE (09:59)
[2016-12-03] MEDS ORDERED: LIDOCAINE 1% MDV 20ML VIAL As Ordered ONE (09:59)
[2016-12-03] MEDS ORDERED: LR 1,000 ML IV SCH ×2 (10:00→13:45)
[2016-12-03] MEDS ORDERED: ISOVUE-300 61% 50ML VIAL (Q9967) As Ordered ONE (10:00)
[2016-12-03] MEDS ORDERED: LIDOCAINE W/EPINEPHRINE 1% 20ML VIAL As Ordered ONE (10:30)
[2016-12-03] MEDS ORDERED: PERCOCET 5MG/325MG TAB PO PRN (13:45)
[2016-12-03] MEDS ORDERED: ONDANSETRON 4MG/2ML VIAL (J2405) IV PRN (13:45)
[2016-12-03] MEDS ORDERED: METOCLOPRAMIDE INJ 10MG/2ML VIAL (J2765) IV PRN (13:45)
[2016-12-03] MEDS ORDERED: MEPERIDINE INJ 25 MG/ML VIAL (J2175) IV PRN (13:45)
[2016-12-03] MEDS ORDERED: oxyCODONE 5MG TAB As Ordered ONE (13:48)
[2016-12-03] MEDS: fentaNYL 100 MCG/2 ML INJECTION (J3010) IV PRN ×10 (13:50→15:23)
--- NOTE | 2016-12-03 13:57 | REP ---
C-ARM VIEWS THORACIC REGION: Multiple C-arm views are performed in the thoracic region during placement of dorsal column stimulator. Leads are seen in the lower thoracic region. 19 minutes 6 seconds fluoroscopy time utilized for the procedure. Signed by Freedom Palmer MD 12/03/2016 08:09 P
[2016-12-03] MEDS: oxyCODONE 5MG TAB PO PRN ×3 (14:00→22:22)
[2016-12-03] MEDS ORDERED: oxyCODONE 5MG TAB PO PRN (14:00)
[2016-12-03] MEDS: hydrOXYzine 25 MG TAB PO SCH ×2 (14:22→20:22)
[2016-12-03] MEDS: GABAPENTIN 300 MG CAP PO SCH ×2 (14:51→20:22)
[2016-12-03] MEDS: DULoxetine 30 MG CAP (CYMBALTA) PO SCH ×2 (15:22→20:22)
--- NOTE | 2016-12-03 22:46 | CR.PDOC ---
[facility] Consultation Consultation DATE OF CONSULTATION: Dec 03, 2016 at 08:34 PRIMARY CARE PHYSICIAN: Dr. Erickson REFERRING PROVIDER: Dr. August ATTENDING PHYSICIAN: Dr. Chavez REASON FOR CONSULTATION/CHIEF COMPLAINT: medical management HISTORY OF PRESENT ILLNESS: Patient is a 45 year old male who is admitted for a trial of a lumbar spinal cord stimulator. He has a history of lumbar spinal stenosis and is s/p laminectomy and discectomy of the lumbar spine. Family medicine has been consulted for medical management. ALLERGIES: Please see below. HOME MEDICATIONS: Please see below. PAST MEDICAL HISTORY: 1. hypertension 2. reflex sympathetic dystrophy of RUE 3. anxiety 4. lumbar spinal stenosis PAST SURGICAL HISTORY: 1. laminectomy and discectomy 2. cervical dorsal column stimulator 3. screws and plates in R hand 4. knee arthroscopy SOCIAL HISTORY: Marital status and/or living arrangements: lives with spouse and child Children: yes Employment: disabled Tobacco use: yes ETOH: denies Illicit drug use: denies REVIEW OF SYSTEMS: CONSTITUTIONAL: afebrile, no chills, denies weight change CARDIOVASCULAR: no chest pain, pressure, or tightness RESPIRATORY: no cough or SOB GENITOURINARY: complains of groin pain MUSCULOSKELETAL: chronic pain in RUE and back GASTROINTESTINAL: denies nausea, vomiting, diarrhea, constipation SKIN: without rash NEUROLOGICAL: chronic paresthesias and radiating back pain PSYCHIATRIC: depression, complains of insomnia PHYSICAL EXAMINATION: VITAL SIGNS: Please see below. GENERAL APPEARANCE: resting comfortably in bed, NAD, sipping soda and waiting for dinner; obese HEENT: MMM, EOMI RESPIRATORY: CTAB CARDIOVASCULAR: RRR without murmurs, rubs, or gallops ABDOMEN: obese, soft, nontender, nondistended EXTREMITIES: without edema NEUROLOGICAL: moves 3 extremities (RUE is in protective wrappings and patient is careful not to move it) PSYCHIATRIC: alert and oriented, appropriate mood and affect LABORATORY DATA: Please see below. ASSESSMENT/PLAN: 1. chronic low back pain -- status post dorsal column stimulator trial; pain management through Dr. August 2. risk for obstructive sleep apnea -- patient is monitored while sleeping through [facility]'s KYLE protocol. He is likely to benefit from formal evaluation as an outpatient. 3. hypertension -- restarted the patient's home chlorthalidone for tomorrow, as he has good PO intake at this time; Norvasc and atenolol were already restarted. Will monitor his blood pressure. 4. depression -- possibly worsened by his narcotics, and hopefully this surgery can decrease his narcotic dependence; restart home Cymbalta 5. obesity -- contributes to risk of KYLE and HTN; likely contributed to by relative immobility from chronic pain Vital Signs/I&O Vital Signs Date Time Temp Pulse Resp B/P Pulse Ox O2 Delivery O2 Flow Rate FiO2 12/03/16 21:00 99.9 74 20 124/61 94 Room Air Allergies Coded Allergies: Buspirone (Verified Allergy, Severe, FACIAL RASH, SWELLING, HIVES, 11/28/16 ) Home Medications Scheduled (Voltaren) 1 % Gel 1 % TD QID (Reported) APPLY TO BACK, patient states he has to have medications on his normal home schedule Amlodipine Besylate (Amlodipine Besylate) 5 Mg Tab 5 MG PO DAILY (Reported) patient states he has to have medications on his normal home schedule Atenolol (Atenolol) 50 Mg Tab 50 MG PO DAILY (Reported) patient states he has to have medications on his normal home schedule Docusate Sodium (Docusate Sodium) 100 Mg Cap 100 MG PO BID (Reported) patient states he has to have medications on his normal home schedule Duloxetine Hcl (Duloxetine HCl) 30 Mg Cap 30 MG PO TID (Reported) patient states he has to have medications on his normal home schedule Gabapentin (Gabapentin) 100 Mg Cap 300 MG PO TID (Reported) patient states he has to have medications on his normal home schedule Lidocaine HCl (Lidocaine 5% Ointment) 1 Dose/35.44 Gm Oint 0 TOP QID (Reported ) ALTERNATE WITH VOLTAREN GEL APPLY TO BACK,patient states he has to have medications on his normal home schedule Scheduled PRN Hydromorphone HCl (Hydromorphone HCl) 4 Mg Tab 4 MG PO Q3HP PRN PRN PAIN ( Reported) patient states he has to have medications on his normal home schedule Hydroxyzine HCl (Hydroxyzine HCl) 25 Mg Tab 25 MG PO QID PRN PRN ANXIETY ( Reported) patient states he has to have medications on his normal home schedule Oxycodone Hcl (Oxycodone HCl) 15 Mg Tab 15 MG PO Q4HP PRN PRN PAIN (Reported) patient states he has to have medications on his normal home schedule ALEX IBARRA DO Dec 03, 2016 22:46
[2016-12-04] VITALS: BP 132/76
[2016-12-04] MEDS ORDERED: ceFAZolin SOD 1 GM in D5W MINI-BAG PLUS 50 ML IV ONE (02:00)
[2016-12-04 04:00] VITALS: BP 140/76
[2016-12-04] MEDS: oxyCODONE 5MG TAB PO PRN ×2 (05:58→09:25)
[2016-12-04 08:00] VITALS: BP 140/82
[2016-12-04] MEDS ORDERED: ATENOLOL 50 MG TAB PO SCH (09:00)
[2016-12-04] MEDS ORDERED: amLODIPine 5 MG TAB PO SCH (09:00)
[2016-12-04] MEDS ORDERED: CHLORTHALIDONE 25 MG TAB PO SCH (09:00)
[2016-12-04] MEDS: GABAPENTIN 300 MG CAP PO SCH (09:24)
[2016-12-04 09:25] VITALS: BP 140/82
[2016-12-04] MEDS: hydrOXYzine 25 MG TAB PO SCH (09:25)
[2016-12-04] MEDS: DULoxetine 30 MG CAP (CYMBALTA) PO SCH (09:26)
--- NOTE | 2016-12-10 10:43 | RO ---
DATE OF PROCEDURE: 12/03/2016 PREPROCEDURE DIAGNOSIS: Lumbar postlaminectomy pain syndrome. POSTPROCEDURE DIAGNOSIS: Lumbar postlaminectomy pain syndrome. PROCEDURE: Spinal column stimulator trial. SURGEON: Dr. Michele Olson ABSTRACT SEARCHER: ANESTHESIA: Local with monitored anesthesia care. ESTIMATED BLOOD LOSS: PREOPERATIVE NOTE: Mr. Vasquez is a 45-year-old male patient with history of chronic low back and leg pain. He has history of back surgeries. Patient has tried conservative management for his condition and the pain has persist. I have discussed lengthy the case with the patient. The patient has expressed that he wants to do a spinal column stimulator trial for the low back and leg condition. Patient has a spinal column stimulator implant for his arm pain. 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 I have discussed with Mr. Vasquez the limitations that may be present during the trial due to the leads that are present right now in the epidural space for the cervical device. The patient expressed that he would like to proceed. Patient denies unexplained weight loss, fever, chills, changes in his urinary or bowel control. PROCEDURE NOTE: After consent was reviewed with the patient, patient was brought to the procedure room and placed in the prone position. The thoracolumbar area was cleaned with betadine solution and draped aseptically. Procedure done under sterile conditions. Under fluoroscopic guidance, I selected the first target at interlaminal level of T10 and T11. The level of T12-L1 was occupied by the cervical leads at both sides. Using local anesthetic lidocaine 1% and an [employer] Tuohy needle, I advanced the needle until I touched the left lamina of T11 and then by the loss of resistance technique, I reached the epidural space 7 cm deep into the skin by the loss of resistant technique. A 16 contact lead from [employer] was advanced under fluoroscopic guidance through the back and midline area of the epidural space until I reached the level of approximately of T6. This lead was in the midline and toward the left side. I was trying to move it to the right side but the scar tissue associated with the leads that the patient has in place was not allowing that movement. After this lead was in position, I attached the lead to an extension cable from [employer] which was attached to the computer system of [employer] and I started to perform some programs. The program was giving stimulation mainly to the patient's back and the majority toward the left side with some stimulation to the right side so decision was made to place a second lead. On this occasion, I chose to use the interlaminal level of T11-T12. The target was the left lamina of T12. I advanced a second [employer] needle until I touched the left lamina of T12. Then by the loss of resistant technique, the epidural space was reached 7 cm deep into the skin by loss of resistant technique, I passed a second 16 contact lead from [employer] and tried to put it to the right side of the first lead but this was not possible due to the scar tissue. After multiple attempts, I chose to put this lead to the left of the first one. I did films in AP and lateral views checking the appropriate position of the leads, then I attached a second extension to the second lead and I attached it to the computer system from [employer]. I started the programming changing the position of the leads, also the contact used, the voltage, checking impedance and I was able to cover the back and leg pain pushing the current toward the midline so the decision was then made to keep the leads in such position. It was not possible to move the lead toward the right area where the implanted cervical leads were located. The programming for this case took 30 minutes, of simple programing. When the patient was satisfied with the position of the stimulation, I removed the extension, removed the stylet and I secured the lead to the patient' s skin with Steri-Strips and then with Tegaderm. The procedure was done without evidence of blood, paresthesia, cerebrospinal fluid. The procedure was done without complications. The patient was sent to the recovery room to start the trial. There was no complication during the procedure. AP and lateral views of the position of the leads were kept in the patient's electronic medical record for further reference. The final position of the leads were at T6, T7 and T8 as seen in the AP and lateral views. There were no complications. IMMANUEL
== END 2016-12-04 09:30 | disposition home or self-care (01) ==
LOC: M SDC 08:34 → M PED 15:40 → M SDC 12-04 09:30
PROVIDERS: ATTEND Anesthesiology
DX: M96.1 Postlaminectomy syndrome, not elsewhere classified (principal); M48.06 Spinal stenosis, lumbar region; I10 Essential (primary) hypertension; K21.9 Gastro-esophageal reflux disease without esophagitis; M54.9 Dorsalgia, unspecified; F41.9 Anxiety disorder, unspecified; F32.9 Major depressive disorder, single episode, unspecified; M79.1 Myalgia; R73.01 Impaired fasting glucose; R21 Rash and other nonspecific skin eruption; G90.511 Complex regional pain syndrome I of right upper limb; F17.210 Nicotine dependence, cigarettes, uncomplicated; Z88.8 Allergy status to other drugs, medicaments and biological substances; Z79.899 Other long term (current) drug therapy; Z87.442 Personal history of urinary calculi; Z87.448 Personal history of other diseases of urinary system
CPT/HCPCS: 63650; 77002; 96374; C1778; J0690; J2250; J3010

== ENCOUNTER → 2016-12-07 | Outpatient (CLI) | payer OTHER, MEDICARE ==
--- NOTE | 2016-12-28 00:34 | ECWPNPC ---
PATIENT NAME: WARREN SANTOS : 1970 GENDER: MALE VISIT DATE: 12/07/2016 DISCHARGE DATE: 12/07/16 1234 VISIT LOCKED DATE TIME: PHYSICIAN: AUDREY WISDOM RESOURCE: AUDREY WISDOM REASON FOR APPOINTMENT 1. W/C ARM HISTORY OF PRESENT ILLNESS HISTORY OF PRESENT ILLNESS: PAIN THE PATIENT DESCRIBES THE PAIN... FALL RISK SCREENING: SCREENING :NO FALLS IN THE PAST YEAR TODAY'S VISIT: NOTES: WORKERS COMP FOLLOWUP FOR RIGHT HAND AND ARM. RATES PAIN LEVEL TODAY 6-7/10. PAIN REMAINS CENTERED IN RIGHT HAND AND ARM FROM FINGERS TO UPPER ARM. DESCRIBES PAIN SHARP STABBING, ACHING, BURNING AND TENDER SORE AND SHOOTING. PAIN IS CONSTANT, AND EXACERBATED BY ANY MOVEMENT AND TOUCH. WEARS PROTECTIVE SLEEVE OVER ARM. DORSAL COLUMN STIM IN PLACE AND FUNCTIONING WELL. THIS IS A BAD WEEK AND NOTES THAT THE PAIN HAS BEEN MORE INTENSE.. CURRENT MEDICATIONS TAKING VOLTAREN 1 % GEL ONE APPLICATION EXTERNALLY QID TO RIGHT UPPER EXTREMITY TAKING LIDOCAINE 5 % OINTMENT 1 APPLICATION TO AFFECTED AREA NEEDED EXTERNALLY THREE TIMES A DAY TAKING VISTARIL 25 MG CAPSULE 1 CAPSULE ORALLY EVERY6 HRS PRN ANXIETY MDD=4, NOTES: TAKING MAX 3 DAILY TAKING CYMBALTA 30 MG CAPSULE DELAYED RELEASE PARTICLES 1 CAPSULE ORALLY TID TAKING COLACE 100 MG CAPSULE 2 CAPSULE NEEDED ORALLY BID TAKING GABAPENTIN 300 MG TABLET 1 CAPSULE ORALLY THREE TIMES A DAY, NOTES: 12/07/16 AT 0830 TAKING HYDROCORTISONE 2.5 % CREAM 1 APPLICATION TO AFFECTED AREA EXTERNALLY TWICE A DAY TAKING HYDROMORPHONE HCL 4 MG TABLET 1 TABLET ORALLY TAKE ONE TAB Q 6 HRS PRN PAIN MDD=3DD=, NOTES: 12/07/16 AT 0830 TAKING OXYCODONE HCL 15 MG TABLET 1-2 TABLET ORALLY EVERY 4 HOURS PRN PAIN MDD=4, NOTES: 12/07/16 AT 0830 TAKING ATENOLOL 50 MG TABLET 1 TABLET ORALLY ONCE A DAY TAKING AMLODIPINE BESYLATE 5 MG TABLET 1 TABLETS ORALLY ONCE A DAY TAKING CHLORTHALIDONE 25 MG TABLET 1 TABLET IN THE MORNING ORALLY ONCE A DAY NOT-TAKING MELATONIN 3 MG TABLET 3 TABLET AT BEDTIME NEEDED WITH FOOD ORALLY ONCE A DAY NOT-TAKING ZOLPIDEM TARTRATE 10 MG TABLET 1 TABLET AT BEDTIME NEEDED ORALLY AT BEDTIME MDD=1 NOT-TAKING CLONAZEPAM 0.5 MG TABLET 1 -2 TABLET ORALLY Q 6 HRS PRN ANXIETY MDD=3, NOTES: TAKING MAX 3 TABS DAILY MEDICATION LIST REVIEWED AND RECONCILED WITH THE PATIENT PAST MEDICAL HISTORY HTN ANXIETY REFLEX SYMPATHETIC DYSTROPHY/COMPLEX REGIONAL PAIN SYNDROME RIGHT UPPER EXTREMITY SPINAL STENOSIS- LUMBAR ALLERGIES BUSPIRONE HCL: FACIAL RASH, SWELLING, HIVES: ALLERGY REVIEW OF SYSTEMS CONSTITUTIONAL: ANY CHANGE IN YOUR MEDICAL CONDITION? YES, ARM IS FEELING WORSE AGAIN . CHILLS NO . FEVER NO . INFECTION: DO YOU HAVE NEW INFECTIONS? NO . DO YOU HAVE HISTORY OF MRSA? NO . MUSCULOSKELETAL: ANY NEW PATTERNS OF PAIN OR NUMBNESS? NO . GASTROENTEROLOGY: BOWEL INCONTINENCE ALWAYS HAS SOME LEAKAGE - CONSTIPATION UNDER BETTER CONTROL . ANY NEW CHANGE IN BOWEL CONTROL? NO . GENITOURINARY: ANY NEW CHANGE IN BLADDER CONTROL? NO . IS THERE A CHANCE YOU COULD BE ? NO . HEMATOLOGY/LYMPH: DO YOU TAKE ANY BLOOD THINNERS? (FOR EXAMPLE- COUMADIN, PLAVIX, AGGRENOX, PLATEL, PRADAXA, OR XARELTO) NO . WHEN WAS YOUR LAST DOSE? DATE: TIME: . NEUROLOGY: HAVE YOU FALLEN IN THE PAST 6 MONTHS? YES . ANY NEW EXTREMITY NUMBNESS OR WEAKNESS? NO . CARDIOLOGY: DO YOU HAVE A PACEMAKER OR DEFIBRILLATOR? NO . CHEST PAIN PATIENT DENIES . RESPIRATORY: HAVE YOU BEEN SICK IN THE PAST WEEK? NO . FEVER NO . FLU LIKE SYMPTOMS? NO . COUGH NO . INTEGUMENTARY: DO YOU HAVE ANY RASHES OR OPEN SORES? NO . ALLERGIC/IMMUNO: ARE YOU ALLERGIC TO SHELLFISH OR IV DYE? NO . ANY NEW ALLERGIES? NO . PSYCHIATRIC: DO YOU HAVE THOUGHTS OF HURTING YOURSELF OR SOMEONE ELSE? NO . ARE YOU ABUSED, NEGLECTED, OR IN AN UNSAFE ENVIRONMENT? NO . ENDOCRINOLOGY: ARE YOU DIABETIC? NO . OTHER: DO YOU NEED ANY PRESCRIPTIONS? YES, VOLTAREN GEL, LIDOCAINE, HYDROCORTISONE . IF YES, PLEASE LIST: ____ . ANY NEW PROBLEMS WITH YOUR MEDICATIONS? NO . WHEN DID YOU LAST EAT? ____ . WHEN DID YOU LAST DRINK? ____ . WHAT DID YOU LAST DRINK? ____ . NAME OF PERSON DRIVING YOU HOME? ____ . DO YOU HAVE ANY OTHER QUESTIONS OR CONCERNS NO . REVIEWED BY: PROVIDER: AUDREY MICHAEL . VITAL SIGNS WT 290 LBS, HT 69 IN, BMI 42.82 INDEX, BP 142/94 MM HG, HR 87 /MIN, RR 18 /MIN, TEMP 98.0 F, OXYGEN SAT % 95%, NA INITIALS SC 11:50, REVIEWED BY: SHERRY. EXAMINATION GENERAL EXAMINATION: PSYCHORIENTED TO PERSON, ORIENTED TO PLACE, ORIENTED TO TIME, GOOD EYE CONTACT. LUNGS: CLEAR TO AUSCULTATION BILATERALLY. HEART:HEART RATE REGULAR. MUSCULOSKELETAL:LIMITED RANGE OF MOTION WITH RIGHT HAND MOVEMENT RIGHT UPPER ARM MOVEMENT. TRIGGER POINTS AND TIGHT FIBROUS BANDS ARE IDENTIFIED OVER THE RIGHT UPPER ARM. NO SPONTANEOUS MOVEMENT OF THE RIGHT HAND FINGER OR FINGERS IS NOTED ALTHOUGH TODAY DOES HAVE BETTER MOVEMENT WITH FLEXION AND EXTENSION OF THE RIGHT WRIST.. EXTREMITIES:ALLODYNIA TO LIGHT TOUCH OVER RIGHT HAND AND RIGHT ARM. SOFT ARM COVER KEPT IN PLACE OVER THE RIGHT HAND AND ARM.. ASSESSMENTS RIGHT HAND PAIN - M79.641 (PRIMARY) CHRONICALLY ON OPIATE THERAPY - Z79.891 NEURALGIA - M79.2 TREATMENT RIGHT HAND PAIN NOTES: UTOX TODAYCONTINUE CURRENT MEDICATIONS THEY ARE MEDICALLY NECESSARYFOR MANAGEMENT OF HIS PAIN. PROCEDURES PN WORKMANS' COMP OPINION IN YOUR OPINION, WAS THE INCIDENT THAT THE PATIENT DESCRIBED THE COMPETENT MEDICAL CAUSE OF THIS INJURY/ILLNESS? YES ARE THE PATIENT'S COMPLAINTS CONSISTENT WITH HIS/HER HISTORY OF THE INJURY/ILLNESS? YES IS THE PATIENT'S HISTORY OF THE INJURY/ILLNESS CONSISTENT WITH YOUR OBJECTIVE FINDING? YES WHAT IS THE PERCENTAGE OF TEMPORARY IMPAIRMENT? TOTAL = 100% IS THE PATIENT WORKING? NO DOCTOR ON SITE: MICHAEL VICTOR MD PROCEDURE CODES FA211 ESTABILISHED PATIENT [facility] FACILITY CHARGE DISPOSITION & COMMUNICATION FOLLOW UP 4-6 WEEKS (REASON: WC RIGHT ARM COORDINATE WITH OTHER [facility] VISIT) ELECTRONICALLY SIGNED BY JULIO CÉSAR BRAY ON 12/27/2016 AT 06:03 PM EDT DISCLAIMER : THIS IS A VISIT SUMMARY EXTRACTED FROM THE [employer] CHART. IT IS NOT A COPY OF THE [employer] PROGRESS NOTE. IMMANUEL
== END | disposition home or self-care (01) ==
LOC: M PAIN 11:40
PROVIDERS: ATTEND Nurse Practitioner Family
DX: G89.29 Other chronic pain (principal); M79.641 Pain in right hand; M79.2 Neuralgia and neuritis, unspecified; I10 Essential (primary) hypertension; F41.9 Anxiety disorder, unspecified; G90.50 Complex regional pain syndrome I, unspecified; Z79.899 Other long term (current) drug therapy; Z88.8 Allergy status to other drugs, medicaments and biological substances

== ENCOUNTER → 2016-12-07 | Outpatient (CLI) | payer OTHER, MEDICARE ==
--- NOTE | 2016-12-07 17:50 | REP ---
FLUOROSCOPIC GUIDANCE: The images were reviewed with Dr. Palmer. The patient has a history of back pain. The portable C-Arm was provided in the OR for Dr. Olson for fluoroscopic guidance. Three intraoperative fluoroscopic spot films were obtained for lead placement verification for dorsal column stimulator. The films are on the PACs system and are available for review. 26 seconds of fluoroscopy time was utilized for this procedure. Reviewed by VENKATA Borden 12/10/2016 08:18 AEdited and Signed by Freedom Palmer MD 12/10/2016 05:37 P
--- NOTE | 2016-12-16 23:57 | ECWPNPC ---
PATIENT NAME: WARREN SANTOS : 1970 GENDER: MALE VISIT DATE: 12/07/2016 DISCHARGE DATE: 12/07/16 1506 VISIT LOCKED DATE TIME: PHYSICIAN: MICHAEL MODI RESOURCE: MICHAEL MODI REASON FOR APPOINTMENT 1. LOW BACK PAIN HISTORY OF PRESENT ILLNESS HISTORY OF PRESENT ILLNESS: PAIN THE PATIENT DESCRIBES THE PAIN... 45 YEAR OLD MALE PATIENT WITH HISTORY OF CHRONIC LOW BACK PAIN. PATIENT DESCRIBES THE PAIN ACHING, BURNING, SHARP, STABBING, THROBBING, SORE, SHOOTING, AND HAVING IT ALL THE TIME WITH A PAIN SCORE OF 4/10 ON TODAY'S VISIT. PATIENT REPORTS HAVING A 90% DECREASE IN PAIN DUE TO THE DCS. PATIENT DID NOT USE ANY OF HIS PAIN MEDICATION FOR HIS LOWER BACK WHILE ON THE TRIAL. MR. SANTOS REPORTED BEING MORE FUNCTIONAL AND MOBILE EVEN WHILE ON THE TRIAL AND BEING CAREFUL TO NOT MOVE THE LEADS. PATIENT DENIES UNEXPLAINABLE WEIGHT LOSS, FEVER, CHILLS, NEW CHANGES ON HIS URINARY OR BOWEL CONTROL. FALL RISK SCREENING: SCREENING :NO FALLS IN THE PAST YEAR CURRENT MEDICATIONS TAKING VOLTAREN 1 % GEL ONE APPLICATION EXTERNALLY QID TO RIGHT UPPER EXTREMITY TAKING LIDOCAINE 5 % OINTMENT 1 APPLICATION TO AFFECTED AREA NEEDED EXTERNALLY THREE TIMES A DAY TAKING VISTARIL 25 MG CAPSULE 1 CAPSULE ORALLY EVERY6 HRS PRN ANXIETY MDD=4, NOTES: TAKING MAX 3 DAILY TAKING CYMBALTA 30 MG CAPSULE DELAYED RELEASE PARTICLES 1 CAPSULE ORALLY TID TAKING COLACE 100 MG CAPSULE 2 CAPSULE NEEDED ORALLY BID TAKING GABAPENTIN 300 MG TABLET 1 CAPSULE ORALLY THREE TIMES A DAY, NOTES: 12/07/16 AT 0830 TAKING HYDROCORTISONE 2.5 % CREAM 1 APPLICATION TO AFFECTED AREA EXTERNALLY TWICE A DAY TAKING HYDROMORPHONE HCL 4 MG TABLET 1 TABLET ORALLY TAKE ONE TAB Q 6 HRS PRN PAIN MDD=3DD=, NOTES: 12/07/16 AT 0830 TAKING OXYCODONE HCL 15 MG TABLET 1-2 TABLET ORALLY EVERY 4 HOURS PRN PAIN MDD=4, NOTES: 12/07/16 AT 0830 TAKING ATENOLOL 50 MG TABLET 1 TABLET ORALLY ONCE A DAY TAKING AMLODIPINE BESYLATE 5 MG TABLET 1 TABLETS ORALLY ONCE A DAY TAKING CHLORTHALIDONE 25 MG TABLET 1 TABLET IN THE MORNING ORALLY ONCE A DAY NOT-TAKING MELATONIN 3 MG TABLET 3 TABLET AT BEDTIME NEEDED WITH FOOD ORALLY ONCE A DAY NOT-TAKING ZOLPIDEM TARTRATE 10 MG TABLET 1 TABLET AT BEDTIME NEEDED ORALLY AT BEDTIME MDD=1 NOT-TAKING CLONAZEPAM 0.5 MG TABLET 1 -2 TABLET ORALLY Q 6 HRS PRN ANXIETY MDD=3, NOTES: TAKING MAX 3 TABS DAILY MEDICATION LIST REVIEWED AND RECONCILED WITH THE PATIENT PAST MEDICAL HISTORY HTN ANXIETY REFLEX SYMPATHETIC DYSTROPHY/COMPLEX REGIONAL PAIN SYNDROME RIGHT UPPER EXTREMITY SPINAL STENOSIS- LUMBAR ALLERGIES BUSPIRONE HCL: FACIAL RASH, SWELLING, HIVES: ALLERGY SURGICAL HISTORY LAMINECTOMY/DISCECTOMY L1-S1 04/2015 DCS 07/2011 INGUINAL HERNIA REPAIR GROIN LYMPH NODE EXCISION RIGHT HAND- SCREWS/PLATE 2001 ARTHROSCOPIC KNEE SURGERY DENTAL EXTRACTIONS FAMILY HISTORY NO FAMILY HISTORY DOCUMENTED. SOCIAL HISTORY GENERAL: PAIN CLINIC PFS, CLERGY, PUBLIC HEALTH REFERRALS CLERGY REFERRAL NEEDED?NO WAS THE PROVIDER NOTIFIED OF ANY PERTINENT INFO?NO PFS REFERRAL NEEDED?NO PUBLIC HEALTH REFERRAL NEEDED?NO PATIENT: ____. HOSPITALIZATION/MAJOR DIAGNOSTIC PROCEDURE SURGERIES ACUTE RENAL FAILURE 03/2016 REVIEW OF SYSTEMS CONSTITUTIONAL: ANY CHANGE IN YOUR MEDICAL CONDITION? NO . CHILLS NO . FEVER NO . INFECTION: DO YOU HAVE NEW INFECTIONS? NO . DO YOU HAVE HISTORY OF MRSA? NO . MUSCULOSKELETAL: ANY NEW PATTERNS OF PAIN OR NUMBNESS? NO . GASTROENTEROLOGY: ANY NEW CHANGE IN BOWEL CONTROL? NO . GENITOURINARY: ANY NEW CHANGE IN BLADDER CONTROL? NO . IS THERE A CHANCE YOU COULD BE ? NO . HEMATOLOGY/LYMPH: DO YOU TAKE ANY BLOOD THINNERS? (FOR EXAMPLE- COUMADIN, PLAVIX, AGGRENOX, PLATEL, PRADAXA, OR XARELTO) NO . WHEN WAS YOUR LAST DOSE? DATE: TIME: . NEUROLOGY: HAVE YOU FALLEN IN THE PAST 6 MONTHS? YES . ANY NEW EXTREMITY NUMBNESS OR WEAKNESS? NO . CARDIOLOGY: DO YOU HAVE A PACEMAKER OR DEFIBRILLATOR? NO . RESPIRATORY: HAVE YOU BEEN SICK IN THE PAST WEEK? NO . FEVER NO . FLU LIKE SYMPTOMS? NO . COUGH NO . INTEGUMENTARY: DO YOU HAVE ANY RASHES OR OPEN SORES? NO . ALLERGIC/IMMUNO: ARE YOU ALLERGIC TO SHELLFISH OR IV DYE? NO . ANY NEW ALLERGIES? NO . PSYCHIATRIC: DO YOU HAVE THOUGHTS OF HURTING YOURSELF OR SOMEONE ELSE? NO . ARE YOU ABUSED, NEGLECTED, OR IN AN UNSAFE ENVIRONMENT? NO . ENDOCRINOLOGY: ARE YOU DIABETIC? NO . OTHER: DO YOU NEED ANY PRESCRIPTIONS? NO . IF YES, PLEASE LIST: ____ . ANY NEW PROBLEMS WITH YOUR MEDICATIONS? NO . WHEN DID YOU LAST EAT? ____ . WHEN DID YOU LAST DRINK? ____ . WHAT DID YOU LAST DRINK? ____ . NAME OF PERSON DRIVING YOU HOME? ____ . DO YOU HAVE ANY OTHER QUESTIONS OR CONCERNS NO . REVIEWED BY: PROVIDER: MICHAEL MODI MD . VITAL SIGNS WT 290 LBS, HT 69 IN, BMI 42.82 INDEX, BP 142/94 MM HG, HR 87 /MIN, RR 18 /MIN, TEMP 98.0 F, OXYGEN SAT % 95%, REVIEWED BY: CS. EXAMINATION : PATIENT IS ALERT O X 3 AND COOPERATIVE. TENDERNESS IN THE LOWER BACK AND PARASPINAL MUSCLE GROUP. PATIENT USING BACK BRACE. ANTALGIC GAIT. SCAR OVER RIGHT SIDE FROM SURGERY, ALONG WITH SCARS FROM CERVICAL DCS. LIMPING FROM RIGHT LEG. RIGHT LEG IS WEAKER THEN THE LEFT AT EXTENSION AND FLEXION. MRI DONE ON 05/04/16 SHOWS POSTOPERATIVE CHANGES OF L2-L5 AND MILD BILATERAL NEURAL FORAMINAL NARROWING AT L5-S1. LEADS PULLED OUT INTACT, NO SIGN OF INFECTION. 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 SANTOS'S PAIN MANAGEMENT CASE. AT THIS TIME THE PATIENT REPORTS HAVING OVER A 90% RELIEF WITH THE DCS. I WOULD LIKE TO REFER THE PATIENT TO A SURGEON FOR THE SURGICAL IMPLANT OF THE PERMANENT. PATIENT AGREES WITH THIS PLAN. PATIENT WILL START KEFLEX DUE TO THE LEADS BEING EXTRACTED. PATIENT WILL CONTINUE TO USE MEDICATIONS BEFORE. INSTRUCTIONS WERE GIVEN, QUESTIONS WERE ANSWERED, PATIENT REPORTS UNDERSTANDING AND AGREES WITH THE PLAN. I, ASHVIN DUARTE, DOCUMENTED THE ABOVE INFORMATION ACTING A SCRIBE FOR DR. MODI. I HAVE REVIEWED THE ABOVE DOCUMENT, WRITTEN BY ASHVIN CASTRO AND I VERIFY THAT IT IS ACCURATE. OTHERS START KEFLEX CAPSULE, 500 MG, 1 CAPSULE, ORALLY, FOUR TIMES DAILY, 5 DAY(S), 20, REFILLS 0 DIAGNOSTIC IMAGING [facility] GUIDANCE (PAIN)[id number] DISPOSITION & COMMUNICATION FOLLOW UP 4 WEEKS ELECTRONICALLY SIGNED BY MICHAEL MODI MD ON 12/16/2016 AT 05:46 PM EDT DISCLAIMER : THIS IS A VISIT SUMMARY EXTRACTED FROM THE [employer] CHART. IT IS NOT A COPY OF THE [employer] PROGRESS NOTE. IMMANUEL
== END | disposition home or self-care (01) ==
LOC: M PAIN 12:40
PROVIDERS: ATTEND Anesthesiology
DX: G89.29 Other chronic pain (principal); M96.1 Postlaminectomy syndrome, not elsewhere classified; M51.16 Intervertebral disc disorders with radiculopathy, lumbar region; M51.17 Intervertebral disc disorders with radiculopathy, lumbosacral region; I10 Essential (primary) hypertension; F41.9 Anxiety disorder, unspecified; G90.511 Complex regional pain syndrome I of right upper limb; F17.210 Nicotine dependence, cigarettes, uncomplicated
CPT/HCPCS: 76000; G0463

== ENCOUNTER → 2017-01-18 | Outpatient (CLI) | payer MEDICARE, OTHER ==
[~2017-01-18] MED LIST changes: -DOCU100C PO; +DOCU100C16 PO; +HYDR-3363 PO; -HYDR25T PO; +VOLT1GEL15 TD; -VOLT1GEL24 TD
--- NOTE | 2017-02-07 01:14 | ECWPNPC ---
PATIENT NAME: WARREN SANTOS : 1970 GENDER: MALE VISIT DATE: 01/18/2017 DISCHARGE DATE: 01/18/17 1459 VISIT LOCKED DATE TIME: PHYSICIAN: AUDREY WISDOM RESOURCE: AUDREY WISDOM REASON FOR APPOINTMENT 1. LOW BACK PAIN/MEDICARE HISTORY OF PRESENT ILLNESS HISTORY OF PRESENT ILLNESS: PAIN THE PATIENT DESCRIBES THE PAIN... FALL RISK SCREENING: SCREENING :NO FALLS IN THE PAST YEAR TODAY'S VISIT: NOTES: MEDICARE FOLLOW UP OFOR BACK PAIN.RATES PAIN TODAY -03/21. IS BEING SCHEDULED FOR DORSAL COLUMN STIM TO LOW BACK ON 01/30/17. WITH DR BURGESS. . CURRENT MEDICATIONS TAKING VOLTAREN 1 % GEL ONE APPLICATION EXTERNALLY QID TO RIGHT UPPER EXTREMITY TAKING LIDOCAINE 5 % OINTMENT 1 APPLICATION TO AFFECTED AREA NEEDED EXTERNALLY THREE TIMES A DAY TAKING CYMBALTA 30 MG CAPSULE DELAYED RELEASE PARTICLES 1 CAPSULE ORALLY TID TAKING COLACE 100 MG CAPSULE 2 CAPSULE NEEDED ORALLY BID TAKING GABAPENTIN 300 MG TABLET 1 CAPSULE ORALLY THREE TIMES A DAY TAKING ATENOLOL 50 MG TABLET 1 TABLET ORALLY ONCE A DAY TAKING AMLODIPINE BESYLATE 5 MG TABLET 1 TABLETS ORALLY ONCE A DAY TAKING CHLORTHALIDONE 25 MG TABLET 1 TABLET IN THE MORNING ORALLY ONCE A DAY TAKING HYDROCORTISONE 2.5 % CREAM 1 APPLICATION TO AFFECTED AREA EXTERNALLY TWICE A DAY TAKING HYDROMORPHONE HCL 4 MG TABLET 1 TABLET ORALLY TAKE ONE TAB Q 6 HRS PRN PAIN MDD=3DD= TAKING OXYCODONE HCL 15 MG TABLET 1-2 TABLET ORALLY EVERY 4 HOURS PRN PAIN MDD=4 TAKING VISTARIL 25 MG CAPSULE 1 CAPSULE ORALLY EVERY6 HRS PRN ANXIETY MDD=4 NOT-TAKING KEFLEX 500 MG CAPSULE 1 CAPSULE ORALLY FOUR TIMES DAILY NOT-TAKING MELATONIN 3 MG TABLET 3 TABLET AT BEDTIME NEEDED WITH FOOD ORALLY ONCE A DAY NOT-TAKING ZOLPIDEM TARTRATE 10 MG TABLET 1 TABLET AT BEDTIME NEEDED ORALLY AT BEDTIME MDD=1 NOT-TAKING CLONAZEPAM 0.5 MG TABLET 1 -2 TABLET ORALLY Q 6 HRS PRN ANXIETY MDD=3, NOTES: TAKING MAX 3 TABS DAILY MEDICATION LIST REVIEWED AND RECONCILED WITH THE PATIENT PAST MEDICAL HISTORY HTN ANXIETY REFLEX SYMPATHETIC DYSTROPHY/COMPLEX REGIONAL PAIN SYNDROME RIGHT UPPER EXTREMITY SPINAL STENOSIS- LUMBAR ALLERGIES BUSPIRONE HCL: FACIAL RASH, SWELLING, HIVES: ALLERGY REVIEW OF SYSTEMS REVIEWED BY: PROVIDER: AUDREY MICHAEL . CONSTITUTIONAL: ANY CHANGE IN YOUR MEDICAL CONDITION? HAVING SURGERY THE IN . CHILLS NO . FEVER NO . INFECTION: DO YOU HAVE NEW INFECTIONS? NO . DO YOU HAVE HISTORY OF MRSA? NO . MUSCULOSKELETAL: ANY NEW PATTERNS OF PAIN OR NUMBNESS? NO . GASTROENTEROLOGY: ANY NEW CHANGE IN BOWEL CONTROL? NO . GENITOURINARY: ANY NEW CHANGE IN BLADDER CONTROL? NO . IS THERE A CHANCE YOU COULD BE ? NO . HEMATOLOGY/LYMPH: DO YOU TAKE ANY BLOOD THINNERS? (FOR EXAMPLE- COUMADIN, PLAVIX, AGGRENOX, PLATEL, PRADAXA, OR XARELTO) NO . WHEN WAS YOUR LAST DOSE? DATE: TIME: . NEUROLOGY: HAVE YOU FALLEN IN THE PAST 6 MONTHS? NO . ANY NEW EXTREMITY NUMBNESS OR WEAKNESS? NO . CARDIOLOGY: DO YOU HAVE A PACEMAKER OR DEFIBRILLATOR? NO . RESPIRATORY: HAVE YOU BEEN SICK IN THE PAST WEEK? NO . FEVER NO . FLU LIKE SYMPTOMS? NO . COUGH YES . INTEGUMENTARY: DO YOU HAVE ANY RASHES OR OPEN SORES? NO . ALLERGIC/IMMUNO: ARE YOU ALLERGIC TO SHELLFISH OR IV DYE? NO . ANY NEW ALLERGIES? NO . PSYCHIATRIC: DO YOU HAVE THOUGHTS OF HURTING YOURSELF OR SOMEONE ELSE? NO . ARE YOU ABUSED, NEGLECTED, OR IN AN UNSAFE ENVIRONMENT? NO . ENDOCRINOLOGY: ARE YOU DIABETIC? NO . OTHER: DO YOU NEED ANY PRESCRIPTIONS? YES . IF YES, PLEASE LIST: VOLTERAN , OXYCODONE, HYDROMORPHONE . ANY NEW PROBLEMS WITH YOUR MEDICATIONS? NO . WHEN DID YOU LAST EAT? ____ . WHEN DID YOU LAST DRINK? ____ . WHAT DID YOU LAST DRINK? ____ . NAME OF PERSON DRIVING YOU HOME? ____ . DO YOU HAVE ANY OTHER QUESTIONS OR CONCERNS NO . VITAL SIGNS WT 290 LBS, HT 69 IN, BMI 42.82 INDEX, BP 134/86 MM HG, HR 79 /MIN, RR 18 /MIN, TEMP 98.5 F, OXYGEN SAT % 90%, NA INITIALS SC 14:05, REVIEWED BY: NL. EXAMINATION GENERAL EXAMINATION: PSYCHFACE FLUSHED. HEENT:RIGHT SIDE FACIAL EDEMA. LUNGS:BILATERAL WHEEZES, NO CRACKLES. HEART:HEART RATE REGULAR. MUSCULOSKELETAL:LIMITED RANGE OF MOTION WITH RIGHT HAND MOVEMENT RIGHT UPPER ARM MOVEMENT. TLSO BRACE REMOVED FOR EXAM. EXQUISITE TENDERNESS WITH PALPATION OVER LUMBAR SPINOUS PROCESSES AND ACROSS THE SACRUM. UNABLE TO FLEX OR EXTEND AT THE WAIST. MUSCLES STRENGTH 4+/5 BRITTANY LOWER EXTREMITIES. GAIT WIDE BASED, ANTALGIC. NO ERRYTHEMA OVER LUMBAR INCISION.. NEUROLOGIC EXAM:DECREASED SENSATION OVER RIGHT LOWER EXTREMITY FROM THIGH TO FOOT.. 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 PROCEDURE CODES FA211 ESTABILISHED PATIENT [facility] FACILITY CHARGE G8730 PAIN ASSESS POS TOOL F/U PLAN DOC G8427 DOC MEDS VERIFIED W/PT OR RE DISPOSITION & COMMUNICATION FOLLOW UP EARLY MARCH (REASON: MEDICARE BACK - ) ELECTRONICALLY SIGNED BY JULIO CÉSAR BRAY ON 02/06/2017 AT 05:51 PM EDT DISCLAIMER : THIS IS A VISIT SUMMARY EXTRACTED FROM THE [employer] CHART. IT IS NOT A COPY OF THE [employer] PROGRESS NOTE. IMMANUEL
== END ==
LOC: M PAIN 14:00
PROVIDERS: ATTEND Nurse Practitioner Family
DX: M48.06 Spinal stenosis, lumbar region (principal); M96.1 Postlaminectomy syndrome, not elsewhere classified; M54.5 Low back pain; Z79.891 Long term (current) use of opiate analgesic; Z79.899 Other long term (current) drug therapy; Z88.8 Allergy status to other drugs, medicaments and biological substances

== ENCOUNTER → 2017-01-18 | Outpatient (CLI) | payer OTHER, MEDICARE ==
[~2017-01-18] MED LIST changes: +DOCU100C PO; -DOCU100C16 PO; -HYDR-3363 PO; +HYDR25T PO; -VOLT1GEL15 TD; +VOLT1GEL24 TD
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
== END ==
LOC: M PAIN 14:40
PROVIDERS: ATTEND Anesthesiology
DX: G89.29 Other chronic pain (principal); M79.641 Pain in right hand; M79.2 Neuralgia and neuritis, unspecified; I10 Essential (primary) hypertension; F41.9 Anxiety disorder, unspecified; G90.511 Complex regional pain syndrome I of right upper limb; M48.00 Spinal stenosis, site unspecified; F17.210 Nicotine dependence, cigarettes, uncomplicated; Z79.891 Long term (current) use of opiate analgesic; Z79.899 Other long term (current) drug therapy

== ENCOUNTER → 2017-01-25 | Outpatient (REF) | payer OTHER, MEDICARE ==
[2017-01-25 17:14] LABS: MEAN CORPUSCULAR HEMOGLOBIN 28.9 pg (27.0-33.0); MEAN CORPUSCULAR HGB CONC 34.3 g/dl (32.0-36.5); MEAN CORPUSCULAR VOLUME 84.1 fl (80.0-96.0); RED CELL DISTRIBUTION WIDTH 13.1 % (11.5-14.5); WHITE BLOOD COUNT 9.1 K/mm3 (4.0-10.0)
[2017-01-25 17:15] LABS: INR 0.92
[2017-01-25 17:51] LABS: ANION GAP 8 MEQ/L (8-16); BLOOD UREA NITROGEN 20 MG/DL (7-18); CALCIUM LEVEL 8.9 MG/DL (8.5-10.1); CARBON DIOXIDE LEVEL 30 MEQ/L (21-32); CHLORIDE LEVEL 98 MEQ/L (98-107); CREATININE FOR GFR 1.14 MG/DL (0.70-1.30); GLOMERULAR FILTRATION RATE > 60.0 (>60); GLUCOSE, FASTING 97 MG/DL (70-105); POTASSIUM SERUM 3.5 MEQ/L (3.5-5.1); SODIUM LEVEL 136 MEQ/L (136-145)
== END ==
LOC: M SFHCCLAY 07:21
PROVIDERS: ATTEND Family Medicine
DX: Z01.818 Encounter for other preprocedural examination (principal); I10 Essential (primary) hypertension

== ENCOUNTER → 2017-03-12 | Outpatient (CLI) | payer MEDICARE ==
[~2017-03-12] MED LIST changes: -DOCU100C PO; +DOCU100C16 PO; +HYDR-3363 PO; -HYDR25T PO; +VOLT1GEL15 TD; -VOLT1GEL24 TD
--- NOTE | 2017-03-26 01:45 | ECWPNPC ---
PATIENT NAME: WARREN SANTOS : 1970 GENDER: MALE VISIT DATE: 03/12/2017 DISCHARGE DATE: 03/12/17 1656 VISIT LOCKED DATE TIME: PHYSICIAN: MICHAEL MODI RESOURCE: MICHAEL MODI REASON FOR APPOINTMENT 1. W/C ARM HISTORY OF PRESENT ILLNESS HISTORY OF PRESENT ILLNESS: PAIN THE PATIENT DESCRIBES THE PAIN... 46 YEAR OLD MALE PATIENT WITH HISTORY OF CHRONIC ARM PAIN. PATIENT DESCRIBES THE PAIN ACHING, BURNING, SHARP, STABBING, TENDER, THROBBING, SORE, SHOOTING AND HAVING IT ALL THE TIME WITH A PAIN SCORE OF 7-8/10. PATIENT WAS HURT IN A WORK RELATED INJURY WHEN HE WAS WORKING AT [employer] WHEN A COWORKER STEPPED ON HIS HAND. MR. SANTOS REPORTS IMMEDIATELY ICING THE HAND AND ENDED UP GOING TO THE ER A FEW DAYS FOLLOWING. PATIENT HAS NO RECEIVED ANY SURGERY ON THE HAND AND REPORTS PHYSICAL THERAPY DOES NOT HELP. CURRENTLY THE PATIENT IS USING GABAPENTIN, HYDROMORPHONE, OXYCODONE, AND CYMBALTA. MR. SANTOS STATES THAT MEDICATION KEEPS HIM MOBILE AND FUNCTIONAL. PATIENT STATES HE HAS TO WEAR A SLEEVE PROTECTION FOR HIS ARM ANY TYPE OF TOUCH CAUSES PAIN. PATIENT DENIES UNEXPLAINABLE WEIGHT LOSS, FEVER, CHILLS, NEW CHANGES ON HIS URINARY OR BOWEL CONTROL. FALL RISK SCREENING: SCREENING :NO FALLS IN THE PAST YEAR CURRENT MEDICATIONS TAKING LIDOCAINE 5 % OINTMENT 1 APPLICATION TO AFFECTED AREA NEEDED EXTERNALLY THREE TIMES A DAY TAKING HYDROCORTISONE 2.5 % CREAM 1 APPLICATION TO AFFECTED AREA EXTERNALLY TWICE A DAY TAKING VISTARIL 25 MG CAPSULE 1 CAPSULE ORALLY EVERY6 HRS PRN ANXIETY MDD=4 TAKING GABAPENTIN 300 MG TABLET 1 CAPSULE ORALLY FOR PAIN FOUR TIMES DAILY TAKING COLACE 100 MG CAPSULE 2 CAPSULE NEEDED ORALLY BID TAKING CYMBALTA 30 MG CAPSULE DELAYED RELEASE PARTICLES 1 CAPSULE ORALLY TID TAKING HYDROMORPHONE HCL 4 MG TABLET 1 TABLET ORALLY TAKE ONE TAB Q 6 HRS PRN PAIN MDD=3DD= TAKING OXYCODONE HCL 15 MG TABLET 1-2 TABLET ORALLY EVERY 4 HOURS PRN PAIN MDD=4 TAKING VOLTAREN 1 % GEL ONE APPLICATION EXTERNALLY QID TO RIGHT UPPER EXTREMITY TAKING ATENOLOL 50 MG TABLET 1 TABLET ORALLY ONCE A DAY TAKING AMLODIPINE BESYLATE 5 MG TABLET 1 TABLETS ORALLY ONCE A DAY TAKING LASIX 20 MG TABLET 1 TABLET ORALLY ONCE A DAY MEDICATION LIST REVIEWED AND RECONCILED WITH THE PATIENT PAST MEDICAL HISTORY HTN ANXIETY REFLEX SYMPATHETIC DYSTROPHY/COMPLEX REGIONAL PAIN SYNDROME RIGHT UPPER EXTREMITY SPINAL STENOSIS- LUMBAR ALLERGIES BUSPIRONE HCL: FACIAL RASH, SWELLING, HIVES: ALLERGY IBUPROFEN: ACUTE RENAL FAILURE: ALLERGY LISINOPRIL: ACUTE RENAL FAILURE: ALLERGY REVIEW OF SYSTEMS REVIEWED BY: PROVIDER: MICHAEL MODI MD . CONSTITUTIONAL: ANY CHANGE IN YOUR MEDICAL CONDITION? NO . CHILLS NO . FEVER NO . INFECTION: DO YOU HAVE NEW INFECTIONS? NO . DO YOU HAVE HISTORY OF MRSA? NO . MUSCULOSKELETAL: ANY NEW PATTERNS OF PAIN OR NUMBNESS? YES PT HAD DORSAL COLUMN STIMULATOR 01/30, REPORTS VERY GOOD RESULTS, WITH DECREASED BACK PAIN. . GASTROENTEROLOGY: ANY NEW CHANGE IN BOWEL CONTROL? NO . GENITOURINARY: ANY NEW CHANGE IN BLADDER CONTROL? NO . IS THERE A CHANCE YOU COULD BE ? NO . HEMATOLOGY/LYMPH: DO YOU TAKE ANY BLOOD THINNERS? (FOR EXAMPLE- COUMADIN, PLAVIX, AGGRENOX, PLATEL, PRADAXA, OR XARELTO) NO . WHEN WAS YOUR LAST DOSE? DATE: TIME: . NEUROLOGY: HAVE YOU FALLEN IN THE PAST 6 MONTHS? NO . ANY NEW EXTREMITY NUMBNESS OR WEAKNESS? NO . CARDIOLOGY: DO YOU HAVE A PACEMAKER OR DEFIBRILLATOR? NO . RESPIRATORY: HAVE YOU BEEN SICK IN THE PAST WEEK? YES PT REPORTS URI OVER THE PAST WEEK, COUGHING UP THICK GREEN SPUTUM, LOW GRADE FEVER, TREATED WITH AUGMENTIN . FEVER NO . FLU LIKE SYMPTOMS? NO . COUGH NO . INTEGUMENTARY: DO YOU HAVE ANY RASHES OR OPEN SORES? NO . ALLERGIC/IMMUNO: ARE YOU ALLERGIC TO SHELLFISH OR IV DYE? NO . ANY NEW ALLERGIES? NO . PSYCHIATRIC: DO YOU HAVE THOUGHTS OF HURTING YOURSELF OR SOMEONE ELSE? NO . ARE YOU ABUSED, NEGLECTED, OR IN AN UNSAFE ENVIRONMENT? NO . ENDOCRINOLOGY: ARE YOU DIABETIC? NO . OTHER: DO YOU NEED ANY PRESCRIPTIONS? NO . IF YES, PLEASE LIST: ____ . ANY NEW PROBLEMS WITH YOUR MEDICATIONS? NO . WHEN DID YOU LAST EAT? ____ . WHEN DID YOU LAST DRINK? ____ . WHAT DID YOU LAST DRINK? ____ . NAME OF PERSON DRIVING YOU HOME? ____ . DO YOU HAVE ANY OTHER QUESTIONS OR CONCERNS NO . VITAL SIGNS WT 292 LBS, HT 69 IN, BMI 43.12 INDEX, BP 137/78 MM HG, HR 74 /MIN, RR 18 /MIN, TEMP 97.4 F, OXYGEN SAT % 95, SAFE IN ENV? (Y/N) YES, NA INITIALS AW 1515, REVIEWED BY: PATRIC. EXAMINATION : PATIENT IS ALERT O X 3 AND COOPERATIVE. PATIENT WEARS PROTECTIVE SLEEVE OVER RIGHT ARM. ALLODYNIA OVER RIGHT ARM AND HAND. ASSESSMENTS PAIN IN RIGHT HAND - M79.641 (PRIMARY) NEURALGIA AND NEURITIS, UNSPECIFIED - M79.2 TREATMENT PAIN IN RIGHT HAND NOTES: WE DISCUSSED SEVERAL ISSUES WITH MR. SANTOS'S PAIN MANAGEMENT CASE. AT THIS TIME THE PATIENT WILL CONTINUE WITH THE SAME MEDICATION REGIME BEFORE. PATIENT IS USING GABAPENTIN AND CYMBALTA FOR THE NEUROPATHIC PAIN, OXYCODONE AND HYDROMORPHONE FOR THE SOMATIC PAIN, COLACE FOR THE CHRONIC CONSTIPATION FROM THE OPIOIDS, AND VOLTAREN GEL FOR THE SOMATIC PAIN. WE DISCUSSED WEANING MEDICATIONS DUE TO THE PATIENT BEING ON OPIATES FOR A LONG PERIOD OF TIME BUT PATIENT STATES HE WOULD NOT BE ABLE TO FUNCTION DUE TO THE PAIN IS HE DECREASES THE MEDICATION. PATIENT DENIES ABUSE OF ANY MEDICATION, DENIES USE OF ILLEGAL SUBSTANCES, AND STATES HE IS ONLY USING THE MEDICATION FOR PAIN MANAGEMENT. AT THIS TIME THE PATIENT STATES HE NEEDS THESE MEDICATIONS TO STAY MOBILE AND FUNCTIONAL. PATIENT DOES NOT WANT TO DO ANY INTERVENTIONS AT THIS TIME AND WOULD LIKE TO CONTINUE WITH MEDICATION MANAGEMENT. PATIENT WILL RETURN TO THE CLINIC IN 2 MONTHS. INSTRUCTIONS WERE GIVEN, QUESTIONS WERE ANSWERED, PATIENT REPORTS UNDERSTANDING AND AGREES WITH THE PLAN. I, ASHVIN DUARTE, DOCUMENTED THE ABOVE INFORMATION ACTING A SCRIBE FOR DR. MODI. I HAVE REVIEWED THE ABOVE DOCUMENT, WRITTEN BY ASHVIN CASTRO AND I VERIFY THAT IT IS ACCURATE. PROCEDURES PN WORKMANS' COMP OPINION IN YOUR OPINION, WAS THE INCIDENT THAT THE PATIENT DESCRIBED THE COMPETENT MEDICAL CAUSE OF THIS INJURY/ILLNESS? YES ARE THE PATIENT'S COMPLAINTS CONSISTENT WITH HIS/HER HISTORY OF THE INJURY/ILLNESS? YES IS THE PATIENT'S HISTORY OF THE INJURY/ILLNESS CONSISTENT WITH YOUR OBJECTIVE FINDING? YES WHAT IS THE PERCENTAGE OF TEMPORARY IMPAIRMENT? TOTAL = 100% IS THE PATIENT WORKING? NO DOCTOR ON SITE: MICHAEL VICTOR MD PROCEDURE CODES FA211 ESTABILISHED PATIENT WORSHIP FACILITY CHARGE G8427 DOC MEDS VERIFIED W/PT OR RE G8330 PAIN ASSESS POS TOOL F/U PLAN DOC DISPOSITION & COMMUNICATION FOLLOW UP 2 MONTHS ELECTRONICALLY SIGNED BY MICHAEL MODI MD ON 03/25/2017 AT 08:31 PM EDT DISCLAIMER : THIS IS A VISIT SUMMARY EXTRACTED FROM THE [employer] CHART. IT IS NOT A COPY OF THE [employer] PROGRESS NOTE. AILEEND
== END ==
LOC: M PAIN 15:00
PROVIDERS: ATTEND Anesthesiology
DX: G89.29 Other chronic pain (principal); M79.641 Pain in right hand; M79.2 Neuralgia and neuritis, unspecified; I10 Essential (primary) hypertension; F41.9 Anxiety disorder, unspecified; Z79.891 Long term (current) use of opiate analgesic; Z79.899 Other long term (current) drug therapy

== ENCOUNTER → 2017-03-12 | Outpatient (CLI) | payer MEDICARE ==
--- NOTE | 2017-04-02 01:54 | ECWPNPC ---
PATIENT NAME: WARREN SANTOS : 1970 GENDER: MALE VISIT DATE: 03/12/2017 DISCHARGE DATE: 03/12/17 1557 VISIT LOCKED DATE TIME: PHYSICIAN: AUDREY WISDOM RESOURCE: AUDREY WISDOM REASON FOR APPOINTMENT 1. BACK HISTORY OF PRESENT ILLNESS TODAY'S VISIT: NOTES: PAIN LEVEL TODAY IS 6-7/10 FOR LOW BACK. IS S/P LUMBAR LAMI AND FUSION ON AND INSERION OF PADDLE ELECTRODE FOR A NEW DCS ON 01/30/[address] BURGESS. REPORTS THIS WS VERY ROUGH BUT HIS PAIN IS MUCH BETTER CONTROLLED. LEG PAIN IS 90% BETTER. REPORTS SLIGHT SPINAL HEADACHE. HAS VERY GOOD DCS COVERAGE.. HISTORY OF PRESENT ILLNESS: PAIN THE PATIENT DESCRIBES THE PAIN... FALL RISK SCREENING: SCREENING :NO FALLS IN THE PAST YEAR CURRENT MEDICATIONS TAKING LIDOCAINE 5 % OINTMENT 1 APPLICATION TO AFFECTED AREA NEEDED EXTERNALLY THREE TIMES A DAY TAKING HYDROCORTISONE 2.5 % CREAM 1 APPLICATION TO AFFECTED AREA EXTERNALLY TWICE A DAY TAKING VISTARIL 25 MG CAPSULE 1 CAPSULE ORALLY EVERY6 HRS PRN ANXIETY MDD=4 TAKING GABAPENTIN 300 MG TABLET 1 CAPSULE ORALLY FOR PAIN FOUR TIMES DAILY TAKING COLACE 100 MG CAPSULE 2 CAPSULE NEEDED ORALLY BID TAKING CYMBALTA 30 MG CAPSULE DELAYED RELEASE PARTICLES 1 CAPSULE ORALLY TID TAKING HYDROMORPHONE HCL 4 MG TABLET 1 TABLET ORALLY TAKE ONE TAB Q 6 HRS PRN PAIN MDD=3DD= TAKING OXYCODONE HCL 15 MG TABLET 1-2 TABLET ORALLY EVERY 4 HOURS PRN PAIN MDD=4 TAKING VOLTAREN 1 % GEL ONE APPLICATION EXTERNALLY QID TO RIGHT UPPER EXTREMITY TAKING ATENOLOL 50 MG TABLET 1 TABLET ORALLY ONCE A DAY TAKING AMLODIPINE BESYLATE 5 MG TABLET 1 TABLETS ORALLY ONCE A DAY TAKING LASIX 20 MG TABLET 1 TABLET ORALLY ONCE A DAY MEDICATION LIST REVIEWED AND RECONCILED WITH THE PATIENT PAST MEDICAL HISTORY HTN ANXIETY REFLEX SYMPATHETIC DYSTROPHY/COMPLEX REGIONAL PAIN SYNDROME RIGHT UPPER EXTREMITY SPINAL STENOSIS- LUMBAR ALLERGIES BUSPIRONE HCL: FACIAL RASH, SWELLING, HIVES: ALLERGY IBUPROFEN: ACUTE RENAL FAILURE: ALLERGY LISINOPRIL: ACUTE RENAL FAILURE: ALLERGY SURGICAL HISTORY LAMINECTOMY/DISCECTOMY L1-S1 04/2015 DCS- CERVICAL 07/2011 INGUINAL HERNIA REPAIR GROIN LYMPH NODE EXCISION RIGHT HAND- SCREWS/PLATE 2001 ARTHROSCOPIC KNEE SURGERY DENTAL EXTRACTIONS DORSAL COLUMN STIMULATOR- THORACIC/LUMBAR 02/2017 HOSPITALIZATION/MAJOR DIAGNOSTIC PROCEDURE SURGERIES ACUTE RENAL FAILURE 03/2016 REVIEW OF SYSTEMS REVIEWED BY: PROVIDER: AUDREY MICHAEL . CONSTITUTIONAL: ANY CHANGE IN YOUR MEDICAL CONDITION? NO . CHILLS NO . FEVER NO . INFECTION: DO YOU HAVE NEW INFECTIONS? YES RECENT BRONCHITIS, EAR INFECTION . DO YOU HAVE HISTORY OF MRSA? NO . MUSCULOSKELETAL: ANY NEW PATTERNS OF PAIN OR NUMBNESS? NO . GASTROENTEROLOGY: ANY NEW CHANGE IN BOWEL CONTROL? NO . GENITOURINARY: ANY NEW CHANGE IN BLADDER CONTROL? NO . IS THERE A CHANCE YOU COULD BE ? NO . HEMATOLOGY/LYMPH: DO YOU TAKE ANY BLOOD THINNERS? (FOR EXAMPLE- COUMADIN, PLAVIX, AGGRENOX, PLATEL, PRADAXA, OR XARELTO) NO . WHEN WAS YOUR LAST DOSE? DATE: TIME: . NEUROLOGY: HAVE YOU FALLEN IN THE PAST 6 MONTHS? YES, LEGS GO NUMB AND PT FALLS OVER . ANY NEW EXTREMITY NUMBNESS OR WEAKNESS? NO . CARDIOLOGY: DO YOU HAVE A PACEMAKER OR DEFIBRILLATOR? NO . RESPIRATORY: HAVE YOU BEEN SICK IN THE PAST WEEK? YES, URI, SINUSITIS, RIGHT EAR INFECTION, TX'D WITH AUGMENTIN FOR THIS&NBSP;. FEVER &NBSP;&NBSP; NO&NBSP;. FLU LIKE SYMPTOMS? &NBSP;&NBSP; NO&NBSP;. COUGH &NBSP;&NBSP; NO&NBSP;. INTEGUMENTARY: DO YOU HAVE ANY RASHES OR OPEN SORES? NO . ALLERGIC/IMMUNO: ARE YOU ALLERGIC TO SHELLFISH OR IV DYE? NO . ANY NEW ALLERGIES? NO . PSYCHIATRIC: DO YOU HAVE THOUGHTS OF HURTING YOURSELF OR SOMEONE ELSE? NO . ARE YOU ABUSED, NEGLECTED, OR IN AN UNSAFE ENVIRONMENT? NO . ENDOCRINOLOGY: ARE YOU DIABETIC? NO . OTHER: DO YOU NEED ANY PRESCRIPTIONS? NO . IF YES, PLEASE LIST: ____ . ANY NEW PROBLEMS WITH YOUR MEDICATIONS? NO . WHEN DID YOU LAST EAT? ____ . WHEN DID YOU LAST DRINK? ____ . WHAT DID YOU LAST DRINK? ____ . NAME OF PERSON DRIVING YOU HOME? ____ . DO YOU HAVE ANY OTHER QUESTIONS OR CONCERNS NO . VITAL SIGNS WT 292 LBS, HT 69 IN, BMI 43.12 INDEX, BP 137/78 MM HG, HR 74 /MIN, RR 18 /MIN, TEMP 97.4 F, OXYGEN SAT % 95%, SAFE IN ENV? (Y/N) Y, NA INITIALS AW 1443, REVIEWED BY: MARVIN. EXAMINATION GENERAL EXAMINATION: PSYCHALERT , ORIENTED X 3 , APPROPRIATE MOOD AND AFFECT . LUNGS:DECREASED AIR ENTRY AT BASES, CLEAR TO AUSCULTATION BILATERALLY. HEART:HEART RATE REGULAR. MUSCULOSKELETAL:LIMITED RANGE OF MOTION WITH RIGHT HAND MOVEMENT RIGHT UPPER ARM MOVEMENT. TENDERNESS WITH PAPLAPTION OVER LUMBAR SPINOUS PROCESSES. SUGICAL INCISIONS OVER LUMBAR SPINE AND FLANK CLEAN, DRY WELL APPROXIMATED. SOME SCABBING PRESENT BUT NO EXUDATE, NO ERYTHEMA. GAIT WIDE BASED, ANTALGIC. POSTURE UPRIGHT . NO BRACE REQUIRED TODAY. NEUROLOGIC EXAM:DECREASED SENSATION OVER RIGHT LOWER EXTREMITY FROM THIGH TO FOOT.. 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 CLINICAL NOTES: ISTOP REGISTRY REVIEWED AND DEMNOSTRATES COMPLLIANCE. BRINGS IN MEDICATIONS WHICH IS APPROPRIATE FOR WHAT WAS DISPENSED. RECENT URINE TOXICOLOGY REVIEWED. NO UNAUTHORIZED MEDICATIONS. PRESCIBED MEDICATIONS WERE PRESENT. SMOKING CESSATION REVIEWED. PROCEDURE CODES G8730 PAIN ASSESS POS TOOL F/U PLAN DOC G8427 DOC MEDS VERIFIED W/PT OR RE DISPOSITION & COMMUNICATION FOLLOW UP 4-6 WEEKS (REASON: M'CARE BACK PAIN) ELECTRONICALLY SIGNED BY JULIO CÉSAR BRAY ON 04/01/2017 AT 08:32 AM EDT DISCLAIMER : THIS IS A VISIT SUMMARY EXTRACTED FROM THE [employer] CHART. IT IS NOT A COPY OF THE [employer] PROGRESS NOTE. MTDD
== END ==
LOC: M PAIN 14:20
PROVIDERS: ATTEND Nurse Practitioner Family
DX: G89.29 Other chronic pain (principal); M48.06 Spinal stenosis, lumbar region; M96.1 Postlaminectomy syndrome, not elsewhere classified; I10 Essential (primary) hypertension; F41.9 Anxiety disorder, unspecified; F32.9 Major depressive disorder, single episode, unspecified; Z88.6 Allergy status to analgesic agent; Z88.8 Allergy status to other drugs, medicaments and biological substances; Z79.891 Long term (current) use of opiate analgesic; Z79.1 Long term (current) use of non-steroidal anti-inflammatories (NSAID); Z79.899 Other long term (current) drug therapy

== ENCOUNTER → 2017-05-23 | Outpatient (CLI) | payer OTHER, MEDICARE ==
--- NOTE | 2017-05-24 00:06 | ECWPNPC ---
PATIENT NAME: WARREN SANTOS : 1970 GENDER: MALE VISIT DATE: 05/23/2017 DISCHARGE DATE: 05/23/17 1554 VISIT LOCKED DATE TIME: PHYSICIAN: AUDREY WISDOM RESOURCE: AUDREY WISDOM REASON FOR APPOINTMENT 1. W/C ARM PAIN HISTORY OF PRESENT ILLNESS HISTORY OF PRESENT ILLNESS: PAIN THE PATIENT DESCRIBES THE PAIN... FALL RISK SCREENING: SCREENING :NO FALLS IN THE PAST YEAR TODAY'S VISIT: NOTES: WC FOLLOWUP FOR LEFT ARM PAIN. STATES DCS IS WORKING WELL. RATES PAIN TODAY 6-810. WAS ABLE TO WEAN SELF OFF OPIATES OVER THE LAST 6 WEEKS. . CURRENT MEDICATIONS TAKING LIDOCAINE 5 % OINTMENT 1 APPLICATION TO AFFECTED AREA NEEDED EXTERNALLY THREE TIMES A DAY TAKING HYDROCORTISONE 2.5 % CREAM 1 APPLICATION TO AFFECTED AREA EXTERNALLY TWICE A DAY TAKING VISTARIL 25 MG CAPSULE 1 CAPSULE ORALLY EVERY6 HRS PRN ANXIETY MDD=4 TAKING COLACE 100 MG CAPSULE 2 CAPSULE NEEDED ORALLY BID TAKING CYMBALTA 30 MG CAPSULE DELAYED RELEASE PARTICLES 1 CAPSULE ORALLY TID TAKING VOLTAREN 1 % GEL ONE APPLICATION EXTERNALLY QID TO RIGHT UPPER EXTREMITY TAKING ATENOLOL 50 MG TABLET 1 TABLET ORALLY ONCE A DAY TAKING GABAPENTIN 300 MG TABLET 1 CAPSULE ORALLY FOR PAIN FOUR TIMES DAILY TAKING AMLODIPINE BESYLATE 5 MG TABLET 1 TABLETS ORALLY ONCE A DAY TAKING LASIX 20 MG TABLET 1 TABLET ORALLY ONCE A DAY NOT-TAKING TRAZODONE HCL 100 MG TABLET 1 /2 - 1 TABLET AT BEDTIME ORALLY ONCE A DAY NOT-TAKING HYDROMORPHONE HCL 4 MG TABLET 1 TABLET ORALLY TAKE ONE TAB Q 6 HRS PRN PAIN MDD=3DD= NOT-TAKING OXYCODONE HCL 15 MG TABLET 1-2 TABLET ORALLY EVERY 4 HOURS PRN PAIN MDD=4 MEDICATION LIST REVIEWED AND RECONCILED WITH THE PATIENT PAST MEDICAL HISTORY HTN ANXIETY REFLEX SYMPATHETIC DYSTROPHY/COMPLEX REGIONAL PAIN SYNDROME RIGHT UPPER EXTREMITY SPINAL STENOSIS- LUMBAR ALLERGIES BUSPIRONE HCL: FACIAL RASH, SWELLING, HIVES: ALLERGY IBUPROFEN: ACUTE RENAL FAILURE: ALLERGY LISINOPRIL: ACUTE RENAL FAILURE: ALLERGY SOCIAL HISTORY GENERAL: TOBACCO USE ARE YOU A:CURRENT SMOKER HOW MANY CIGARETTES A DAY DO YOU SMOKE?11-20 HOW SOON AFTER YOU WAKE UP DO YOU SMOKE YOUR FIRST CIGARETTE?6-30 MIN HOW OFTEN DO YOU SMOKE CIGARETTES?EVERY DAY PATIENT COUNSELED ON THE DANGERS OF TOBACCO USE AND URGED TO QUIT:02/21/2017 ARE YOU INTERESTED IN QUITTING?NOT READY TO QUIT COUNSELED THE PATIENT ON SMOKING EFFECTS, EDUCATION [id number]/13/2017 ADDITIONAL FINDINGS: TOBACCO USERMODERATE CIGARETTE SMOKER (10-19 CIGS/DAY) SMOKING CESSATION INFORMATION GIVEN02/21/2017 BMI CARE GOAL FOLLOW-UP ABOVE NORMAL BMI FOLLOW-UPDIETARY MANAGEMENT EDUCATION, GUIDANCE, AND COUNSELING ALCOHOL SCREENING DID YOU HAVE A DRINK CONTAINING ALCOHOL IN THE PAST YEAR?NO POINTS0 INTERPRETATIONNEGATIVE RECREATIONAL DRUG USE DRUG USE?NO CAFFEINE CAFFEINE USE?YES HOW OFTEN AND HOW MUCH? 2 COFFEES DAILY HIV / HEP-C SCREENING HIV TEST OFFERED TO PATIENT:YES DATE OFFERED:02/21/2017 TEST ACCEPTED:NO REASON:PATIENT DECLINED HEP-C TEST OFFERED TO PATIENT:NO OCCUPATION: DISABLED. DIET: REGULAR. EXERCISE: NO REGULAR EXERCISE. MARITAL STATUS: SINGLE. OTHERS AT HOME: SPOUSE, CHILDREN. UATSDIN [id number] CONGREGATIONAL NO ANABAPTISM BELIEFS THAT WOULD IMPACT HEALTH CARE. LANGUAGE LANGUAGES SPOKEN:BELARUSIAN LEARNING BARRIERS / SPECIAL NEEDS CHANGE FROM LAST VISIT?NO BARRIERS TO LEARNING?NO HEARING IMPAIRED?NO VISION IMPAIRED?NO COGNITIVELY IMPAIRED?NO READINESS TO LEARN?YES LEARNING PREFERENCES?NO LEARNING CAPABILITIES PRESENT?YES EMOTIONAL BARRIERS?NO SPECIAL DEVICES?NO PRIMARY CARE SALES REPRESENTATIVE NEEDED?NO PAIN CLINIC PFS, CLERGY, PUBLIC HEALTH REFERRALS PFS REFERRAL NEEDED?NO CLERGY REFERRAL NEEDED?NO PUBLIC HEALTH REFERRAL NEEDED?NO HAS THE PATIENT BEEN EDUCATED REGARDING HIS/HER PLAN OF CARE?YES HAS THE PATIENT BEEN EDUCATED REGARDING PAIN, THE RISK FOR PAIN, THE IMPORTANCE OF EFFECTIVE PAIN MANAGEMENT, AND THE PAIN ASSESSMENT PROCESS?YES PATIENT: ____. REVIEW OF SYSTEMS REVIEWED BY: PROVIDER: . CONSTITUTIONAL: ANY CHANGE IN YOUR MEDICAL CONDITION? NO . CHILLS NO . FEVER NO . INFECTION: DO YOU HAVE NEW INFECTIONS? NO . DO YOU HAVE HISTORY OF MRSA? NO . MUSCULOSKELETAL: ANY NEW PATTERNS OF PAIN OR NUMBNESS? YES, PAIN HAS INCREASED SINCE BEING OFF OPIATES . GASTROENTEROLOGY: ANY NEW CHANGE IN BOWEL CONTROL? NO . GENITOURINARY: ANY NEW CHANGE IN BLADDER CONTROL? NO . IS THERE A CHANCE YOU COULD BE ? NO . HEMATOLOGY/LYMPH: DO YOU TAKE ANY BLOOD THINNERS? (FOR EXAMPLE- COUMADIN, PLAVIX, AGGRENOX, PLATEL, PRADAXA, OR XARELTO) NO . WHEN WAS YOUR LAST DOSE? DATE: TIME: . NEUROLOGY: HAVE YOU FALLEN IN THE PAST 6 MONTHS? YES . ANY NEW EXTREMITY NUMBNESS OR WEAKNESS? NO . CARDIOLOGY: DO YOU HAVE A PACEMAKER OR DEFIBRILLATOR? NO . RESPIRATORY: HAVE YOU BEEN SICK IN THE PAST WEEK? NO . FEVER NO . FLU LIKE SYMPTOMS? NO . COUGH NO . INTEGUMENTARY: DO YOU HAVE ANY RASHES OR OPEN SORES? NO . ALLERGIC/IMMUNO: ARE YOU ALLERGIC TO SHELLFISH OR IV DYE? NO . ANY NEW ALLERGIES? NO . PSYCHIATRIC: DO YOU HAVE THOUGHTS OF HURTING YOURSELF OR SOMEONE ELSE? NO . ARE YOU ABUSED, NEGLECTED, OR IN AN UNSAFE ENVIRONMENT? NO . ENDOCRINOLOGY: ARE YOU DIABETIC? NO . OTHER: DO YOU NEED ANY PRESCRIPTIONS? YES . IF YES, PLEASE LIST: LIDOCAINE AND VOLTAREN GEL . ANY NEW PROBLEMS WITH YOUR MEDICATIONS? NO . WHEN DID YOU LAST EAT? ____ . WHEN DID YOU LAST DRINK? ____ . WHAT DID YOU LAST DRINK? ____ . NAME OF PERSON DRIVING YOU HOME? ____ . DO YOU HAVE ANY OTHER QUESTIONS OR CONCERNS NO . VITAL SIGNS WT 294 LBS, HT 69 IN, BMI 43.41 INDEX, BP 163/94 MM HG, HR 73 /MIN, RR 18 /MIN, TEMP 98.5 F, OXYGEN SAT % 95%, SAFE IN ENV? (Y/N) YES, NA INITIALS AW 1503, REVIEWED BY: SHERRY. EXAMINATION GENERAL EXAMINATION: PSYCHALERT , ORIENTED X 3 , APPROPRIATE MOOD AND AFFECT . LUNGS:DECREASED AIR ENTRY AT BASES, CLEAR TO AUSCULTATION BILATERALLY. HEART:HEART RATE REGULAR. MUSCULOSKELETAL:MARKED LIMITED RANGE OF MOTION WITH RIGHT HAND, FINGERS AND ARM. PROTECTIVE SLEEVE WORN OVER RIGHT HAND AND ARM. TIGHT FIBROUS BANDS NOTED OVER RIGHT DELTOID. ALLODYNIA TO LIGHT TOUCH OVER ENTIRE RIGHT HAND AND ARM.. NEUROLOGIC EXAM:HYPERSENSATIVITY TO ANY TOUCH OR MOVEMENT OVER RIGHT HAND AND ARM.. ASSESSMENTS PAIN IN RIGHT HAND - M79.641 (PRIMARY) NEURALGIA AND NEURITIS, UNSPECIFIED - M79.2 TREATMENT PAIN IN RIGHT HAND REFILL LIDOCAINE OINTMENT, 5 %, 1 APPLICATION TO AFFECTED AREA NEEDED, EXTERNALLY, THREE TIMES A DAY, 30 DAY(S), 3, REFILLS 2 REFILL VOLTAREN GEL, 1 %, ONE APPLICATION, EXTERNALLY, QID TO RIGHT UPPER EXTREMITY, 30 DAY(S), 3 TUBE, REFILLS 2 NOTES: REFER TO DR LEOS FOR MEDICAL MARIJUANA.CALL DR MANRIQUEZ ABOUT FOLLLOWUP APPOINTMENT. PROCEDURES PN WORKMANS' COMP OPINION IN YOUR OPINION, WAS THE INCIDENT THAT THE PATIENT DESCRIBED THE COMPETENT MEDICAL CAUSE OF THIS INJURY/ILLNESS? YES ARE THE PATIENT'S COMPLAINTS CONSISTENT WITH HIS/HER HISTORY OF THE INJURY/ILLNESS? YES IS THE PATIENT'S HISTORY OF THE INJURY/ILLNESS CONSISTENT WITH YOUR OBJECTIVE FINDING? YES WHAT IS THE PERCENTAGE OF TEMPORARY IMPAIRMENT? TOTAL = 100% IS THE PATIENT WORKING? NO DOCTOR ON SITE: MICHAEL VICTOR MD PROCEDURE CODES FA211 ESTABILISHED PATIENT [facility] CHARGE DISPOSITION & COMMUNICATION FOLLOW UP 6 WEEKS (REASON: WC RIGHT ARM) ELECTRONICALLY SIGNED BY JULIO CÉSAR BRAY ON 05/23/2017 AT 04:56 PM EDT DISCLAIMER : THIS IS A VISIT SUMMARY EXTRACTED FROM THE [employer] CHART. IT IS NOT A COPY OF THE [employer] PROGRESS NOTE. IMMANUEL
== END ==
LOC: M PAIN 14:45
PROVIDERS: ATTEND Nurse Practitioner Family
DX: G89.29 Other chronic pain (principal); M79.641 Pain in right hand; M79.2 Neuralgia and neuritis, unspecified; I10 Essential (primary) hypertension; F41.9 Anxiety disorder, unspecified; F32.9 Major depressive disorder, single episode, unspecified; F17.210 Nicotine dependence, cigarettes, uncomplicated; Z88.6 Allergy status to analgesic agent; Z88.8 Allergy status to other drugs, medicaments and biological substances; Z79.899 Other long term (current) drug therapy

== ENCOUNTER → 2017-07-08 | Outpatient (CLI) | payer OTHER, MEDICARE ==
--- NOTE | 2017-07-27 00:50 | ECWPNPC ---
PATIENT NAME: WARREN SANTOS : 1970 GENDER: MALE VISIT DATE: 07/08/2017 DISCHARGE DATE: 07/08/17 1401 VISIT LOCKED DATE TIME: PHYSICIAN: AUDREY WISDOM RESOURCE: AUDREY WISDOM REASON FOR APPOINTMENT 1. RIGHT ARM HISTORY OF PRESENT ILLNESS HISTORY OF PRESENT ILLNESS: PAIN THE PATIENT DESCRIBES THE PAIN... FALL RISK SCREENING: SCREENING :NO FALLS IN THE PAST YEAR TODAY'S VISIT: NOTES: FOLLOWUP FOR RIGHT ARM PAIN. RATES PAIN TODAY 7-8/10 PAIN IS CENTERED IN RIGHT HAND WITH RADIATION UP THE ARM. REPORTS DORSAL COLUMN STMULATOR IS PROVIDING GOOD STIMULATION OVER THE RIGHT HAND AND ARM AND IS VERY HELPFUL IN MANAGING HIS PAIN IN THIS AREA. IS NOW OFF ALL OPIOD MEDICATIONS FOR PAIN CONTROL. CURRENT MEDICATIONS TAKING HYDROCORTISONE 2.5 % CREAM 1 APPLICATION TO AFFECTED AREA EXTERNALLY TWICE A DAY TAKING VISTARIL 25 MG CAPSULE 1 CAPSULE ORALLY EVERY6 HRS PRN ANXIETY MDD=4 TAKING COLACE 100 MG CAPSULE 2 CAPSULE NEEDED ORALLY BID TAKING CYMBALTA 30 MG CAPSULE DELAYED RELEASE PARTICLES 1 CAPSULE ORALLY TID TAKING GABAPENTIN 300 MG TABLET 1 CAPSULE ORALLY FOR PAIN FOUR TIMES DAILY TAKING AMLODIPINE BESYLATE 5 MG TABLET 1 TABLETS ORALLY ONCE A DAY TAKING LASIX 20 MG TABLET 1 TABLET ORALLY ONCE A DAY TAKING LIDOCAINE 5 % OINTMENT 1 APPLICATION TO AFFECTED AREA NEEDED EXTERNALLY THREE TIMES A DAY TAKING VOLTAREN 1 % GEL ONE APPLICATION EXTERNALLY QID TO RIGHT UPPER EXTREMITY TAKING METOPROLOL SUCCINATE ER 100 MG TABLET EXTENDED RELEASE 24 HOUR 1 TABLET ORALLY ONCE A DAY NOT-TAKING TRAZODONE HCL 100 MG TABLET 1 /2 - 1 TABLET AT BEDTIME ORALLY ONCE A DAY NOT-TAKING HYDROMORPHONE HCL 4 MG TABLET 1 TABLET ORALLY TAKE ONE TAB Q 6 HRS PRN PAIN MDD=3DD= NOT-TAKING OXYCODONE HCL 15 MG TABLET 1-2 TABLET ORALLY EVERY 4 HOURS PRN PAIN MDD=4 MEDICATION LIST REVIEWED AND RECONCILED WITH THE PATIENT PAST MEDICAL HISTORY HTN ANXIETY REFLEX SYMPATHETIC DYSTROPHY/COMPLEX REGIONAL PAIN SYNDROME RIGHT UPPER EXTREMITY SPINAL STENOSIS- LUMBAR ALLERGIES BUSPIRONE HCL: FACIAL RASH, SWELLING, HIVES: ALLERGY IBUPROFEN: ACUTE RENAL FAILURE: ALLERGY LISINOPRIL: ACUTE RENAL FAILURE: ALLERGY SOCIAL HISTORY GENERAL: TOBACCO USE ARE YOU A:CURRENT SMOKER HOW MANY CIGARETTES A DAY DO YOU SMOKE?11-20 HOW SOON AFTER YOU WAKE UP DO YOU SMOKE YOUR FIRST CIGARETTE?6-30 MIN HOW OFTEN DO YOU SMOKE CIGARETTES?EVERY DAY PATIENT COUNSELED ON THE DANGERS OF TOBACCO USE AND URGED TO QUIT:02/21/2017 ARE YOU INTERESTED IN QUITTING?NOT READY TO QUIT COUNSELED THE PATIENT ON SMOKING EFFECTS, EDUCATION [id number]/13/2017 ADDITIONAL FINDINGS: TOBACCO USERMODERATE CIGARETTE SMOKER (10-19 CIGS/DAY) SMOKING CESSATION INFORMATION GIVEN02/21/2017 BMI CARE GOAL FOLLOW-UP ABOVE NORMAL BMI FOLLOW-UPDIETARY MANAGEMENT EDUCATION, GUIDANCE, AND COUNSELING ALCOHOL SCREENING DID YOU HAVE A DRINK CONTAINING ALCOHOL IN THE PAST YEAR?NO POINTS0 INTERPRETATIONNEGATIVE RECREATIONAL DRUG USE DRUG USE?NO CAFFEINE CAFFEINE USE?YES HOW OFTEN AND HOW MUCH? 2 COFFEES DAILY HIV / HEP-C SCREENING HIV TEST OFFERED TO PATIENT:YES DATE OFFERED:02/21/2017 TEST ACCEPTED:NO REASON:PATIENT DECLINED HEP-C TEST OFFERED TO PATIENT:NO OCCUPATION: DISABLED. DIET: REGULAR. EXERCISE: NO REGULAR EXERCISE. MARITAL STATUS: SINGLE. OTHERS AT HOME: SPOUSE, CHILDREN. PENTECOSTALISM [id number] WORSHIP NO SABIANIST BELIEFS THAT WOULD IMPACT HEALTH CARE. LANGUAGE LANGUAGES SPOKEN:GABONESE LEARNING BARRIERS / SPECIAL NEEDS CHANGE FROM LAST VISIT?NO BARRIERS TO LEARNING?NO HEARING IMPAIRED?NO VISION IMPAIRED?NO COGNITIVELY IMPAIRED?NO READINESS TO LEARN?YES LEARNING PREFERENCES?NO LEARNING CAPABILITIES PRESENT?YES EMOTIONAL BARRIERS?NO SPECIAL DEVICES?NO PHOTO MASK INSPECTOR NEEDED?NO PAIN CLINIC PFS, CLERGY, PUBLIC HEALTH REFERRALS PFS REFERRAL NEEDED?NO CLERGY REFERRAL NEEDED?NO PUBLIC HEALTH REFERRAL NEEDED?NO HAS THE PATIENT BEEN EDUCATED REGARDING HIS/HER PLAN OF CARE?YES HAS THE PATIENT BEEN EDUCATED REGARDING PAIN, THE RISK FOR PAIN, THE IMPORTANCE OF EFFECTIVE PAIN MANAGEMENT, AND THE PAIN ASSESSMENT PROCESS?YES PATIENT: ____. ADVANCE DIRECTIVES HEALTH CARE PROXY?NO WOULD YOU LIKE MORE INFORMATION?NO REVIEW OF SYSTEMS REVIEWED BY: PROVIDER: . CONSTITUTIONAL: ANY CHANGE IN YOUR MEDICAL CONDITION? NO . CHILLS NO . FEVER NO . INFECTION: DO YOU HAVE NEW INFECTIONS? NO . DO YOU HAVE HISTORY OF MRSA? NO . MUSCULOSKELETAL: ANY NEW PATTERNS OF PAIN OR NUMBNESS? NO . GASTROENTEROLOGY: ANY NEW CHANGE IN BOWEL CONTROL? NO . GENITOURINARY: ANY NEW CHANGE IN BLADDER CONTROL? NO . IS THERE A CHANCE YOU COULD BE ? NO . HEMATOLOGY/LYMPH: DO YOU TAKE ANY BLOOD THINNERS? (FOR EXAMPLE- COUMADIN, PLAVIX, AGGRENOX, PLATEL, PRADAXA, OR XARELTO) NO . WHEN WAS YOUR LAST DOSE? DATE: TIME: . NEUROLOGY: HAVE YOU FALLEN IN THE PAST 6 MONTHS? YES, NOT SINCE MARCH 01 . ANY NEW EXTREMITY NUMBNESS OR WEAKNESS? NO . CARDIOLOGY: DO YOU HAVE A PACEMAKER OR DEFIBRILLATOR? NO . RESPIRATORY: HAVE YOU BEEN SICK IN THE PAST WEEK? NO . FEVER NO . FLU LIKE SYMPTOMS? NO . COUGH NO . INTEGUMENTARY: DO YOU HAVE ANY RASHES OR OPEN SORES? NO . ALLERGIC/IMMUNO: ARE YOU ALLERGIC TO SHELLFISH OR IV DYE? NO . ANY NEW ALLERGIES? NO . PSYCHIATRIC: DO YOU HAVE THOUGHTS OF HURTING YOURSELF OR SOMEONE ELSE? NO . ARE YOU ABUSED, NEGLECTED, OR IN AN UNSAFE ENVIRONMENT? NO . ENDOCRINOLOGY: ARE YOU DIABETIC? NO . OTHER: DO YOU NEED ANY PRESCRIPTIONS? YES . IF YES, PLEASE LIST: HYDROXAZINE . ANY NEW PROBLEMS WITH YOUR MEDICATIONS? NO . WHEN DID YOU LAST EAT? ____ . WHEN DID YOU LAST DRINK? ____ . WHAT DID YOU LAST DRINK? ____ . NAME OF PERSON DRIVING YOU HOME? ____ . DO YOU HAVE ANY OTHER QUESTIONS OR CONCERNS NO . VITAL SIGNS WT 294.0 LBS, HT 69 IN, BMI 43.41 INDEX, BP 132/81 MM HG, HR 69 /MIN, RR 18 /MIN, TEMP 97.6 F, OXYGEN SAT % 94%, NA INITIALS TL 1331, REVIEWED BY: NL. EXAMINATION GENERAL EXAMINATION: PSYCHALERT , ORIENTED X 3 , APPROPRIATE MOOD AND AFFECT . LUNGS: CLEAR TO AUSCULTATION BILATERALLY, NO WHEEZES RALES OR RHONCHI. HEART:HEART RATE REGULAR. MUSCULOSKELETAL:MARKED LIMITED RANGE OF MOTION WITH RIGHT HAND, FINGERS AND ARM. PROTECTIVE SLEEVE WORN OVER RIGHT HAND AND ARM. TIGHT FIBROUS BANDS NOTED OVER RIGHT DELTOID. ALLODYNIA TO LIGHT TOUCH OVER ENTIRE RIGHT HAND AND ARM.. NEUROLOGIC EXAM:HYPERSENSITIVITY TO ANY TOUCH OR MOVEMENT OVER RIGHT HAND AND ARM.. ASSESSMENTS PAIN IN RIGHT HAND - M79.641 (PRIMARY) NEURALGIA AND NEURITIS, UNSPECIFIED - M79.2 TREATMENT PAIN IN RIGHT HAND START HYDROXYZINE HCL TABLET, 25 MG, 1 TABLET NEEDED, ORALLY, FOUR TIMES DAILY, 30 DAY(S), 120, REFILLS 5 NOTES: CONTINUE STRETCHES TO RIGHT ARM/HAND. PROCEDURES PN WORKMANS' COMP OPINION IN YOUR OPINION, WAS THE INCIDENT THAT THE PATIENT DESCRIBED THE COMPETENT MEDICAL CAUSE OF THIS INJURY/ILLNESS? YES ARE THE PATIENT'S COMPLAINTS CONSISTENT WITH HIS/HER HISTORY OF THE INJURY/ILLNESS? YES IS THE PATIENT'S HISTORY OF THE INJURY/ILLNESS CONSISTENT WITH YOUR OBJECTIVE FINDING? YES WHAT IS THE PERCENTAGE OF TEMPORARY IMPAIRMENT? TOTAL = 100% IS THE PATIENT WORKING? NO DOCTOR ON SITE: MICHAEL VICTOR MD DISPOSITION & COMMUNICATION FOLLOW UP 6 WEEKS (REASON: WC RIGHT ARM) ELECTRONICALLY SIGNED BY JULIO CÉSAR BRAY ON 07/26/2017 AT 07:55 PM EST DISCLAIMER : THIS IS A VISIT SUMMARY EXTRACTED FROM THE [employer] CHART. IT IS NOT A COPY OF THE [employer] PROGRESS NOTE. IMMANUEL
== END ==
LOC: M PAIN 13:30
PROVIDERS: ATTEND Nurse Practitioner Family
DX: G89.29 Other chronic pain (principal); M79.641 Pain in right hand; M79.2 Neuralgia and neuritis, unspecified; I10 Essential (primary) hypertension; F17.210 Nicotine dependence, cigarettes, uncomplicated; Z88.6 Allergy status to analgesic agent; Z88.8 Allergy status to other drugs, medicaments and biological substances; Z79.899 Other long term (current) drug therapy

== ENCOUNTER → 2017-09-12 | Outpatient (REF) | payer OTHER, MEDICARE ==
[2017-09-12 17:41] LABS: ALBUMIN 3.6 GM/DL (3.2-5.2); ALBUMIN/GLOBULIN RATIO 0.88 (1.00-1.93); ALKALINE PHOSPHATASE 56 U/L (45-117); ALT/SGPT 35 U/L (12-78); ANION GAP 5 MEQ/L (8-16); AST/SGOT 16 U/L (7-37); BILIRUBIN,TOTAL 0.3 MG/DL (0.2-1.0); BLOOD UREA NITROGEN 15 MG/DL (7-18); CARBON DIOXIDE LEVEL 29 MEQ/L (21-32); CHLORIDE LEVEL 106 MEQ/L (98-107); CREATININE FOR GFR 1.16 MG/DL (0.70-1.30); ESTIMATED AVERAGE GLUCOSE 111 MG/DL (60-110); GLOMERULAR FILTRATION RATE > 60.0 (>60); GLUCOSE, FASTING 92 MG/DL (70-100); HEMOGLOBIN A1c 5.5 %; POTASSIUM SERUM 4.7 MEQ/L (3.5-5.1); SODIUM LEVEL 140 MEQ/L (136-145); TOTAL PROTEIN 7.7 GM/DL (6.4-8.2)
[2017-09-15 00:07] LABS: Lyme Disease IgG/IgM Antibodie <0.91 ISR (0.00-0.90); Lyme Disease IgM Ab Quantitati <0.80 index (0.00-0.79)
== END ==
LOC: M SFHCCLAY 10:18
DX: I10 Essential (primary) hypertension (principal); R73.01 Impaired fasting glucose; M79.1 Myalgia; M48.061 Spinal stenosis, lumbar region without neurogenic claudication

== ENCOUNTER → 2017-09-19 | Outpatient (CLI) | payer OTHER, MEDICARE | LOC: M PAIN 10:30 | DX: M79.641 Pain in right hand (principal); M79.2 Neuralgia and neuritis, unspecified; I10 Essential (primary) hypertension; F41.9 Anxiety disorder, unspecified; F17.210 Nicotine dependence, cigarettes, uncomplicated; Z79.899 Other long term (current) drug therapy; Z88.6 Allergy status to analgesic agent; Z88.8 Allergy status to other drugs, medicaments and biological substances | CPT/HCPCS: G0463 ==

== ENCOUNTER → 2017-12-11 | Outpatient (CLI) | payer OTHER, MEDICARE | LOC: M PAIN 14:00 | DX: M79.641 Pain in right hand (principal); G90.511 Complex regional pain syndrome I of right upper limb; M79.2 Neuralgia and neuritis, unspecified; I10 Essential (primary) hypertension; F41.9 Anxiety disorder, unspecified; F17.210 Nicotine dependence, cigarettes, uncomplicated; Z79.899 Other long term (current) drug therapy; Z88.8 Allergy status to other drugs, medicaments and biological substances | CPT/HCPCS: G0463 ==

== ENCOUNTER → 2018-02-14 | Outpatient (CLI) | payer OTHER, MEDICARE | LOC: M PAIN 14:00 | DX: M79.641 Pain in right hand (principal); M79.2 Neuralgia and neuritis, unspecified; I10 Essential (primary) hypertension; F41.9 Anxiety disorder, unspecified; F17.210 Nicotine dependence, cigarettes, uncomplicated; Z79.899 Other long term (current) drug therapy; Z88.6 Allergy status to analgesic agent; Z88.8 Allergy status to other drugs, medicaments and biological substances; Z87.448 Personal history of other diseases of urinary system | CPT/HCPCS: G0463 ==

== ENCOUNTER → 2018-03-17 | Outpatient (REF) | payer OTHER, MEDICARE ==
[2018-03-18 11:36] LABS: BASO # 0.1 10^3/uL (0.0-0.2); BASO % 0.5 % (0.0-1.0); EOS # 0.3 10^3/uL (0.0-0.50); EOS % 3.1 % (0.0-3.0); HEMATOCRIT 43.3 % (42.0-52.0); HEMOGLOBIN 14.9 g/dl (13.5-17.5); IMMATURE GRANULOCYTE % 0.3 % (0-3.0); LYMPH # 2.9 10^3/uL (1.5-4.5); LYMPH % 30.7 % (24.0-44.0); MEAN CORPUSCULAR HEMOGLOBIN 28.3 pg (27.0-33.0); MEAN CORPUSCULAR HGB CONC 34.4 g/dl (32.0-36.5); MEAN CORPUSCULAR VOLUME 82.2 fl (80.0-96.0); MONO # 0.8 10^3/uL (0.0-0.8); MONO % 8.6 % (0.0-5.0); NEUTROPHILS # 5.4 10^3/uL (1.8-7.7); NEUTROPHILS % 56.8 % (36.0-66.0); PLATELET COUNT, AUTOMATED 275 10^3/uL (150-450); RED BLOOD COUNT 5.27 10^6/uL (4.30-6.10); RED CELL DISTRIBUTION WIDTH 13.1 % (11.5-14.5); WHITE BLOOD COUNT 9.5 10^3/uL (4.0-10.0)
[2018-03-18 12:02] LABS: TOTAL T3 114.7 NG/DL (60.0-181.0)
[2018-03-18 12:09] LABS: ALBUMIN 3.6 GM/DL (3.2-5.2); ALBUMIN/GLOBULIN RATIO 0.92 (1.00-1.93); ALKALINE PHOSPHATASE 53 U/L (45-117); ALT/SGPT 35 U/L (12-78); ANION GAP 6 MEQ/L (8-16); AST/SGOT 25 U/L (7-37); BILIRUBIN,TOTAL 0.5 MG/DL (0.2-1.0); BLOOD UREA NITROGEN 13 MG/DL (7-18); CALCIUM LEVEL 9.1 MG/DL (8.5-10.1); CARBON DIOXIDE LEVEL 28 MEQ/L (21-32); CHLORIDE LEVEL 106 MEQ/L (98-107); GLOMERULAR FILTRATION RATE > 60.0 (>60); GLUCOSE, FASTING 68 MG/DL (70-100); SODIUM LEVEL 140 MEQ/L (136-145); THYROXINE (T4) 8.1 UG/DL (4.5-12.0); TOTAL PROTEIN 7.5 GM/DL (6.4-8.2)
[2018-03-18 12:18] LABS: POTASSIUM SERUM 5.8 MEQ/L (3.5-5.1)
[2018-03-18 12:36] LABS: ESTIMATED AVERAGE GLUCOSE 117 MG/DL (60-110); HEMOGLOBIN A1c 5.7 %
== END ==
LOC: M SFHCCLAY 15:53
DX: I10 Essential (primary) hypertension (principal); R73.01 Impaired fasting glucose; H53.8 Other visual disturbances
CPT/HCPCS: 84443

== ENCOUNTER → 2018-04-17 | Outpatient (CLI) | payer MEDICARE, OTHER | LOC: M PAIN 15:15 | DX: M79.1 Myalgia (principal); I10 Essential (primary) hypertension; F41.9 Anxiety disorder, unspecified; M48.061 Spinal stenosis, lumbar region without neurogenic claudication; F17.210 Nicotine dependence, cigarettes, uncomplicated; G90.511 Complex regional pain syndrome I of right upper limb; Z79.899 Other long term (current) drug therapy; Z88.6 Allergy status to analgesic agent; Z88.8 Allergy status to other drugs, medicaments and biological substances | CPT/HCPCS: G0463 ==

== ENCOUNTER → 2018-04-18 | Outpatient (CLI) | payer MEDICARE, OTHER ==
[~2018-04-18] MED LIST changes: -/DOXE100CA PO; -/DULO30CA PO; -/HCTZ25TA PO; -AMBI10TA OR; -AMBI12.52 PO; -AMIT10TA2 OR; -AMLO5TAB2 PO; -ARTHROTEC PO; -ATEN25TA PO; -ATEN50TA2 PO; +BUPIVACAINE HCL 0.25% 10 ML VIAL As Ordered; +BUPIVACAINE HCL 0.25% 30 ML VIAL As Ordered; -BUSP5TA GT; -CLON0.5T PO; -COLA100C2 OR; -DILA2TAB PO; -DOCU100C16 PO; -DULO1CAP2 PO; -FLECTOR1.3 TOP; -GABA-279 PO; -GABA-282 PO; -HYDR-3363 PO; -HYDR4TAB PO; -LIDO1OIN2 TOP; -LIDO5DIS TOP; -LISI20TA PO; -LISI20TA5 OR; -LISI40TAB PO; -LUNE2TAB OR; -METH5TAB2 OR; -NEUR300C PO; -NORV5TAB PO; -OXYC10TA12 PO; -OXYC15TA76 PO; -OXYC5TAB2 PO; -REST15CA PO; -ROBA750T4 PO; -SM I100T PO; -SPIR25TA2 PO; -TRAM50TA2 PO; -TRAZ50TA OR; +TRIAMCINOLONE ACETONIDE SUSP 40 MG/ML VIAL (J3301) As Ordered; -VICO5TAB PO; -VIST50CA PO; -VOLT1GEL15 TD; -VOLTAREN GEL TOP; -ZOLP10TA2 PO; -ZOLP12.515 PO; -[UNRECOGNIZED DRUG - CODE] PO; -[UNRECOGNIZED DRUG - CODE] PO; +diazePAM 5 MG TAB As Ordered; -endocet PO; +oxyCODONE 5MG TAB As Ordered
== END ==
LOC: M PAIN 10:30
DX: M79.1 Myalgia (principal); M54.5 Low back pain; I10 Essential (primary) hypertension; F17.200 Nicotine dependence, unspecified, uncomplicated; E66.01 Morbid (severe) obesity due to excess calories; Z68.44 Body mass index [BMI] 60.0-69.9, adult; Z79.899 Other long term (current) drug therapy; Z88.8 Allergy status to other drugs, medicaments and biological substances
CPT/HCPCS: J3301

== ENCOUNTER → 2018-04-21 | Outpatient (REF) | payer MEDICARE, OTHER | LOC: M SFHCCLAY 17:36 | DX: L72.3 Sebaceous cyst (principal); L82.1 Other seborrheic keratosis | CPT/HCPCS: 88305 ==

== ENCOUNTER → 2018-05-07 | Outpatient (CLI) | payer MEDICARE | LOC: M PAIN 13:45 | DX: M79.1 Myalgia (principal); M96.1 Postlaminectomy syndrome, not elsewhere classified; I10 Essential (primary) hypertension; F41.9 Anxiety disorder, unspecified; F32.9 Major depressive disorder, single episode, unspecified; F17.210 Nicotine dependence, cigarettes, uncomplicated; Z79.899 Other long term (current) drug therapy; Z88.8 Allergy status to other drugs, medicaments and biological substances | CPT/HCPCS: G0463 ==

== ENCOUNTER → 2018-06-03 | Outpatient (CLI) | payer MEDICARE ==
[~2018-06-03] MED LIST changes: -BUPIVACAINE HCL 0.25% 10 ML VIAL As Ordered
== END ==
LOC: M PAIN 14:45
DX: M79.18 Myalgia, other site (principal); M54.5 Low back pain; I10 Essential (primary) hypertension; F41.9 Anxiety disorder, unspecified; F17.210 Nicotine dependence, cigarettes, uncomplicated; Z79.899 Other long term (current) drug therapy; Z88.6 Allergy status to analgesic agent; Z88.8 Allergy status to other drugs, medicaments and biological substances
CPT/HCPCS: J3301

== ENCOUNTER → 2018-06-13 | Outpatient (CLI) | payer MEDICARE, SELFPAY | LOC: M PAIN 11:30 | DX: M79.641 Pain in right hand (principal); M79.2 Neuralgia and neuritis, unspecified; I10 Essential (primary) hypertension; F41.9 Anxiety disorder, unspecified; G90.511 Complex regional pain syndrome I of right upper limb; M48.061 Spinal stenosis, lumbar region without neurogenic claudication; F17.210 Nicotine dependence, cigarettes, uncomplicated; Z88.8 Allergy status to other drugs, medicaments and biological substances; Z79.899 Other long term (current) drug therapy; Z88.6 Allergy status to analgesic agent | CPT/HCPCS: G0463 ==

== ENCOUNTER → 2018-06-17 | Outpatient (CLI) | payer MEDICARE, SELFPAY | LOC: M PAIN 11:30 | DX: M46.1 Sacroiliitis, not elsewhere classified (principal); M79.18 Myalgia, other site; M96.1 Postlaminectomy syndrome, not elsewhere classified; I10 Essential (primary) hypertension; F41.9 Anxiety disorder, unspecified; M48.061 Spinal stenosis, lumbar region without neurogenic claudication; G90.511 Complex regional pain syndrome I of right upper limb; F17.210 Nicotine dependence, cigarettes, uncomplicated; Z79.899 Other long term (current) drug therapy; Z88.6 Allergy status to analgesic agent; Z88.8 Allergy status to other drugs, medicaments and biological substances | CPT/HCPCS: G0463 ==

== ENCOUNTER → 2018-06-18 | Outpatient (CLI) | payer MEDICARE, SELFPAY ==
[~2018-06-18] MED LIST changes: +ISOVUE-M 300 61% 15ML VIAL (Q9967) As Ordered; +LIDOCAINE 1% SDV INJ 30 ML VIAL As Ordered
== END ==
LOC: M PAIN 10:30
DX: M46.1 Sacroiliitis, not elsewhere classified (principal); I10 Essential (primary) hypertension; F41.9 Anxiety disorder, unspecified; M48.061 Spinal stenosis, lumbar region without neurogenic claudication; F17.210 Nicotine dependence, cigarettes, uncomplicated; Z79.899 Other long term (current) drug therapy; Z88.6 Allergy status to analgesic agent; Z88.8 Allergy status to other drugs, medicaments and biological substances
CPT/HCPCS: J3301

== ENCOUNTER → 2018-07-23 | Outpatient (CLI) | payer OTHER ==
[~2018-07-23] MED LIST changes: +/DOXE100CA PO; +/DULO30CA PO; +/HCTZ25TA PO; +AMBI10TA OR; +AMBI12.52 PO; +AMIT10TA2 OR; +AMLO5TAB4 PO; +ARTHROTEC PO; +ATEN25TA PO; +ATEN50TA2 PO; -BUPIVACAINE HCL 0.25% 30 ML VIAL As Ordered; +BUSP5TA GT; +CLON0.5T PO; +CLON0.5T8 PO; +COLA100C2 OR; +DILA2TAB PO; +DOCU100C16 PO; +DULO1CAP2 PO; +FLECTOR1.3 TOP; +GABA-1171 PO; +GABA-843 PO; +HYDR-3363 PO; +HYDR4TAB PO; -ISOVUE-M 300 61% 15ML VIAL (Q9967) As Ordered; +LIDO1OIN2 TOP; +LIDO5DIS TOP; -LIDOCAINE 1% SDV INJ 30 ML VIAL As Ordered; +LISI20TA PO; +LISI20TA5 OR; +LISI40TAB PO; +LUNE2TAB OR; +METH5TAB2 OR; +NEUR300C PO; +NORV5TAB PO; +OXYC10TA12 PO; +OXYC15TA76 PO; +OXYC5TAB2 PO; +REST15CA PO; +ROBA750T4 PO; +SM I100T PO; +SPIR-10 PO; +TRAM50TA2 PO; +TRAZ50TA OR; -TRIAMCINOLONE ACETONIDE SUSP 40 MG/ML VIAL (J3301) As Ordered; +VICO5TAB PO; +VIST50CA PO; +VOLT1GEL15 TD; +VOLTAREN GEL TOP; +ZOLP10TA2 PO; +ZOLP12.515 PO; +[UNRECOGNIZED DRUG - CODE] PO; +[UNRECOGNIZED DRUG - CODE] PO; -diazePAM 5 MG TAB As Ordered; +endocet PO; -oxyCODONE 5MG TAB As Ordered
--- NOTE | 2018-08-12 23:38 | ECWPNPC ---
PATIENT NAME: WARREN SANTOS : 1970 GENDER: MALE VISIT DATE: 07/23/2018 DISCHARGE DATE: 07/23/18 1536 VISIT LOCKED DATE TIME: PHYSICIAN: MICHAEL MODI MD RESOURCE: MICHAEL MODI MD REASON FOR APPOINTMENT 1. MEDICARE, POST [facility] HISTORY OF PRESENT ILLNESS DEPRESSION SCREENING: PHQ-2 IN LAST TWO WEEKS HAVE YOU BEEN BOTHERED BY LITTLE INTEREST OR PLEASURE IN DOING THINGSNO FEELING DOWN, DEPRESSED, OR HOPELESSNO HISTORY OF PRESENT ILLNESS: PAIN THE PATIENT DESCRIBES THE PAIN... 47 YEAR OLD MALE PATIENT WITH A HISTORY OF CHRONIC LOW BACK AND LEG PAIN. PATIENT DESCRIBES THE PAIN ACHING, BURNING, SHARP, STABBING, TENDER, SORE, SHOOTING, AND HAVING IT ALL THE TIME WITH A PAIN SCORE OF 8-10/10 DEPENDING ON PHYSICAL ACTIVITY. THE PATIENT RECENTLY HAD A SACROILIAC JOINT BLOCK ON 06/18/18 AND REPORTS THAT IT HELPED AID IN PAIN RELIEF FOR AT LEAST A MONTH. THE PATIENT STATES THAT THE PAIN RADIATES TOWARDS HIS HIPS. THE PATIENT ALSO REPORTS HAVING NIGHT SWEATS BUT IS CONSULTING WITH HIS PRIMARY CARE PHYSICIAN ABOUT IT. PATIENT DENIES UNEXPLAINABLE WEIGHT LOSS, FEVER, CHILLS, NEW CHANGES ON HIS URINARY OR BOWEL CONTROL. FALL RISK SCREENING: SCREENING :NO FALLS IN THE PAST YEAR CURRENT MEDICATIONS TAKING LIDOCAINE 5 % OINTMENT 1 APPLICATION TO AFFECTED AREA NEEDED EXTERNALLY THREE TIMES A DAY TAKING CYMBALTA 30 MG CAPSULE DELAYED RELEASE PARTICLES 1 CAPSULE ORALLY TID TAKING GABAPENTIN 300 MG TABLET 1 CAPSULE ORALLY FOR PAIN FOUR TIMES DAILY TAKING MAY USE - - MEDICAL MARIJUANA ORALLY DIRECTED TAKING ATENOLOL 50 MG TABLET 1 TABLET ORALLY ONCE A DAY TAKING LASIX 20 MG TABLET 1 TABLET ORALLY ONCE A DAY NEEDED TAKING VOLTAREN 1 % GEL ONE APPLICATION EXTERNALLY QID TO RIGHT UPPER EXTREMITY TAKING HYDROCORTISONE 2.5 % CREAM 1 APPLICATION TO AFFECTED AREA EXTERNALLY TWICE A DAY TAKING HYDROXYZINE HCL 25 MG TABLET 1 TABLET NEEDED ORALLY FOUR TIMES DAILY TAKING AMLODIPINE BESYLATE 5 MG TABLET 1 TABLETS ORALLY ONCE A DAY TAKING METOPROLOL SUCCINATE ER 100 MG TABLET EXTENDED RELEASE 24 HOUR 1 TABLET ORALLY ONCE A DAY MEDICATION LIST REVIEWED AND RECONCILED WITH THE PATIENT PAST MEDICAL HISTORY HTN ANXIETY REFLEX SYMPATHETIC DYSTROPHY/COMPLEX REGIONAL PAIN SYNDROME RIGHT UPPER EXTREMITY SPINAL STENOSIS- LUMBAR ALLERGIES BUSPIRONE HCL: FACIAL RASH, SWELLING, HIVES: ALLERGY IBUPROFEN: ACUTE RENAL FAILURE: ALLERGY LISINOPRIL: ACUTE RENAL FAILURE: ALLERGY CHLORTHALIDONE: RASH/FOLLICULITIS: SIDE EFFECTS SURGICAL HISTORY LAMINECTOMY/DISCECTOMY L1-S1 04/2015 DCS- CERVICAL 07/2011 INGUINAL HERNIA REPAIR GROIN LYMPH NODE EXCISION RIGHT HAND- SCREWS/PLATE 2001 ARTHROSCOPIC KNEE SURGERY DENTAL EXTRACTIONS DORSAL COLUMN STIMULATOR- THORACIC/LUMBAR- DR BURGESS 02/2017 FAMILY HISTORY FATHER: DIAGNOSED WITH HYPERTENSION MOTHER: DIAGNOSED WITH HYPERTENSION PATERNAL GRAND FATHER: DIAGNOSED WITH HEART DISEASE PATERNAL GRAND MOTHER: DIAGNOSED WITH DIABETES SOCIAL HISTORY GENERAL: TOBACCO USE ARE YOU A:CURRENT SMOKER ARE YOU INTERESTED IN QUITTING?NOT READY TO QUIT COUNSELED THE PATIENT ON SMOKING EFFECTS, EDUCATION [id number]/12/2018 HOW MANY CIGARETTES A DAY DO YOU SMOKE?11-20 HOW SOON AFTER YOU WAKE UP DO YOU SMOKE YOUR FIRST CIGARETTE?6-30 MIN HOW OFTEN DO YOU SMOKE CIGARETTES?EVERY DAY PATIENT COUNSELED ON THE DANGERS OF TOBACCO USE AND URGED TO QUIT:07/23/2018 ADDITIONAL FINDINGS: TOBACCO USERMODERATE CIGARETTE SMOKER (10-19 CIGS/DAY) SMOKING CESSATION INFORMATION GIVEN06/03/2018 BMI CARE GOAL FOLLOW-UP ABOVE NORMAL BMI FOLLOW-UPDIETARY MANAGEMENT EDUCATION, GUIDANCE, AND COUNSELING ALCOHOL SCREENING DID YOU HAVE A DRINK CONTAINING ALCOHOL IN THE PAST YEAR?NO POINTS0 INTERPRETATIONNEGATIVE RECREATIONAL DRUG USE DRUG USE?NO CAFFEINE CAFFEINE USE?YES HOW OFTEN AND HOW MUCH? 2 COFFEES DAILY HIV / HEP-C SCREENING HIV TEST OFFERED TO PATIENT:YES DATE OFFERED:05/01/2018 TEST ACCEPTED:NO HEP-C TEST OFFERED TO PATIENT:NO REASON:PATIENT DECLINED BROCHURE PROVIDED TO PATIENTNO MOSQUE [id number] EVANGELICAL NO PROTESTANT BELIEFS THAT WOULD IMPACT HEALTH CARE. 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 DIET: REGULAR. EXERCISE: NO REGULAR EXERCISE. MARITAL STATUS: SINGLE. OTHERS AT HOME: SPOUSE, CHILDREN. PAIN CLINIC PFS, CLERGY, PUBLIC HEALTH REFERRALS PFS REFERRAL NEEDED?NO CLERGY REFERRAL NEEDED?NO PUBLIC HEALTH REFERRAL NEEDED?NO WAS THE PROVIDER NOTIFIED OF ANY PERTINENT INFO?YES HAS THE PATIENT BEEN EDUCATED REGARDING HIS/HER PLAN OF CARE?YES HAS THE PATIENT BEEN EDUCATED REGARDING PAIN, THE RISK FOR PAIN, THE IMPORTANCE OF EFFECTIVE PAIN MANAGEMENT, AND THE PAIN ASSESSMENT PROCESS?YES ADVANCE DIRECTIVE ADVANCE DIRECTIVE DISCUSSED WITH PATIENT:YES DECLINED HCP INFORMATION 07/23/18 REVIEWED WITH PATIENT 05/07/18 1405 JSREVIEWED WITH PT 06/17/18 1144 BVREVEIWED WITH PT 06/18/18 BVRVIEWED WITH PATIENT 07/23/18 1327 JS. HOSPITALIZATION/MAJOR DIAGNOSTIC PROCEDURE SURGERIES ACUTE RENAL FAILURE 03/2016 REVIEW OF SYSTEMS REVIEWED BY: PROVIDER: MICHAEL MODI MD . CONSTITUTIONAL: ANY CHANGE IN YOUR MEDICAL CONDITION? NO . CHILLS NO . FEVER NO . INFECTION: DO YOU HAVE NEW INFECTIONS? NO . DO YOU HAVE HISTORY OF MRSA? NO . MUSCULOSKELETAL: ANY NEW PATTERNS OF PAIN OR NUMBNESS? NO . GASTROENTEROLOGY: ANY NEW CHANGE IN BOWEL CONTROL? NO . GENITOURINARY: ANY NEW CHANGE IN BLADDER CONTROL? NO . IS THERE A CHANCE YOU COULD BE ? NO . HEMATOLOGY/LYMPH: DO YOU TAKE ANY BLOOD THINNERS? (FOR EXAMPLE- COUMADIN, PLAVIX, AGGRENOX, PLATEL, PRADAXA, OR XARELTO) NO . WHEN WAS YOUR LAST DOSE? DATE: TIME: . NEUROLOGY: HAVE YOU FALLEN IN THE PAST 6 MONTHS? YES, PATIENT STATES DISCUSSED AT LAST APPOINTMENT . ANY NEW EXTREMITY NUMBNESS OR WEAKNESS? NO . CARDIOLOGY: DO YOU HAVE A PACEMAKER OR DEFIBRILLATOR? NO . RESPIRATORY: HAVE YOU BEEN SICK IN THE PAST WEEK? NO . FEVER NO . FLU LIKE SYMPTOMS? NO . COUGH NO . INTEGUMENTARY: DO YOU HAVE ANY RASHES OR OPEN SORES? NO . ALLERGIC/IMMUNO: ARE YOU ALLERGIC TO SHELLFISH OR IV DYE? NO . ANY NEW ALLERGIES? NO . PSYCHIATRIC: DO YOU HAVE THOUGHTS OF HURTING YOURSELF OR SOMEONE ELSE? NO . ARE YOU ABUSED, NEGLECTED, OR IN AN UNSAFE ENVIRONMENT? NO . ENDOCRINOLOGY: ARE YOU DIABETIC? NO . OTHER: DO YOU NEED ANY PRESCRIPTIONS? NO . IF YES, PLEASE LIST: ____ . ANY NEW PROBLEMS WITH YOUR MEDICATIONS? NO . WHEN DID YOU LAST EAT? ____ . WHEN DID YOU LAST DRINK? ____ . WHAT DID YOU LAST DRINK? ____ . NAME OF PERSON DRIVING YOU HOME? ____ . DO YOU HAVE ANY OTHER QUESTIONS OR CONCERNS NO . VITAL SIGNS WT 284 LBS, HT 69 IN, BMI 41.93 INDEX, BP 140/74 MM HG, HR 86 /MIN, RR 18 /MIN, TEMP 98.2 F, OXYGEN SAT % 95%, SAFE IN ENV? (Y/N) YES, NA INITIALS NV 13:05, REVIEWED BY: JS. EXAMINATION GENERAL EXAMINATION: PATIENT IS ALERT O X 3 AND COOPERATIVE. LUNGS CLEAR, TO AUSCULTATION. HEART: NO MURMURS OR GALLOPS; FACIAL CRANIAL NERVES ARE GROSSLY NORMAL. GOOD SYMMETRY OF FACIAL MUSCLE MOVEMENT. NORMAL VISUAL MARQUEZ. ANTALGIC GAIT. PATIENT IS LIMPING FROM THE LEFT LEG. PATIENT HAS DIFFICULTIES WALKING. LEFT LEG IS WEAKER THAN THE RIGHT WITH EXTENSION AND FLEXION. STRAIGHT LEG RAISING IN THE LEFT LEG POSITIVE FOR RADICULOPATHY AT 60 DEGREES. X-RAY OF THE LUMBOSACRAL SPINE DONE ON 04/17/18 SHOWS LAMINECTOMY CHANGES. ASSESSMENTS LUMBAR RADICULOPATHY - M54.16 (PRIMARY) LUMBAR POST-LAMINECTOMY SYNDROME - M96.1 TREATMENT LUMBAR RADICULOPATHY CLINICAL NOTES: WE DISCUSSED SEVERAL ISSUES WITH MR. SANTOS'S PAIN MANAGEMENT CASE. DUE TO THE INCREASED PAIN, I WOULD LIKE TO MOVE FORWARD WITH A CAUDAL EPIDURAL STEROID INJECTION WITH IV SEDATION AT THIS TIME. PATIENT WOULD LIKE TO MOVE FORWARD WITH IV SEDATION DUE TO DISCOMFORT, PAIN AND ANXIETY ASSOCIATED WITH THE PROCEDURE. WE DISCUSSED THE BENEFITS, RISKS, AND ALTERNATIVES OF THE INJECTION AND THE PATIENT WOULD LIKE TO PROCEED. I WAS WITH THE PATIENT FOR OVER 25 MINUTES AND MORE THAN HALF THE TIME WAS DISCUSSING THE PATIENT'S OPTIONS FOR PAIN MANAGEMENT. THE PATIENT WILL FOLLOW UP WITH ME 2-3 WEEKS AFTER THE PROCEDURE. INSTRUCTIONS WERE GIVEN, QUESTIONS WERE ANSWERED, PATIENT REPORTS UNDERSTANDING AND AGREES WITH THE PLAN. I, MINAL FREY, DOCUMENTED THE ABOVE INFORMATION ACTING A SCRIBE FOR DR. MODI. I HAVE REVIEWED THE ABOVE DOCUMENT, WRITTEN BY MINAL FREY SCRIBE AND I VERIFY THAT IT IS ACCURATE. PREVENTIVE MEDICINE PAIN CLINIC TEACHING: PROCEDURE TEACHING PT GIVEN WRITTEN AND VERBAL PRE-PROCEDURE INSTRUCTIONS. PT VERBALIZES UNDERSTANDING OF ALL INSTRUCTIONS. FRANK YANES 07/23/2018 3:44:54 PM > . PROCEDURE CODES FA211 ESTABILISHED PATIENT [facility] FACILITY CHARGE [id number] CURRENT MEDS W/DOSAGES DOCUMENTED G8730 PAIN ASSESS POS TOOL F/U PLAN DOC DISPOSITION & COMMUNICATION FOLLOW UP 4 WEEKS ELECTRONICALLY SIGNED BY MICHAEL MODI MD, MD ON 08/12/2018 AT 04:15 PM EST DISCLAIMER : THIS IS A VISIT SUMMARY EXTRACTED FROM THE [employer] CHART. IT IS NOT A COPY OF THE [employer] PROGRESS NOTE. IMMANUEL
== END ==
LOC: M PAIN 13:00
PROVIDERS: ATTEND Anesthesiology
DX: M54.16 Radiculopathy, lumbar region (principal); M96.1 Postlaminectomy syndrome, not elsewhere classified; I10 Essential (primary) hypertension; F41.9 Anxiety disorder, unspecified; G90.511 Complex regional pain syndrome I of right upper limb; M48.061 Spinal stenosis, lumbar region without neurogenic claudication; F17.210 Nicotine dependence, cigarettes, uncomplicated; Z79.899 Other long term (current) drug therapy; Z88.8 Allergy status to other drugs, medicaments and biological substances

== ENCOUNTER → 2018-07-25 | Outpatient (CLI) | payer OTHER ==
--- NOTE | 2018-08-13 00:13 | ECWPNPC ---
PATIENT NAME: WARREN SANTOS : 1970 GENDER: MALE VISIT DATE: 07/25/2018 DISCHARGE DATE: 07/25/18 1523 VISIT LOCKED DATE TIME: PHYSICIAN: MICHEAL MODI MD RESOURCE: MICHAEL MODI MD REASON FOR APPOINTMENT 1. W/C R ARM HISTORY OF PRESENT ILLNESS DEPRESSION SCREENING: PHQ-2 IN LAST TWO WEEKS HAVE YOU BEEN BOTHERED BY LITTLE INTEREST OR PLEASURE IN DOING THINGSNO FEELING DOWN, DEPRESSED, OR HOPELESSNO HISTORY OF PRESENT ILLNESS: PAIN THE PATIENT DESCRIBES THE PAIN... 47 YEAR OLD MALE PATIENT WITH A HISTORY OF RIGHT ARM PAIN. PATIENT DESCRIBES THE PAIN ACHING, BURNING, STABBING, TENDER, SHARP, SORE, SHOOTING, AND HAVING IT ALL THE TIME WITH A PAIN SCORE OF 6-10/10 DEPENDING ON PHYSICAL ACTIVITY AND WEATHER. PATIENT WAS HURT IN A WORK RELATED INJURY WHEN HE WAS WORKING AT [employer] WHEN A COWORKER STEPPED ON HIS HAND. THE PATIENT STATES THAT HE CANNOT USE HIS RIGHT ARM AT ALL AND HAS IT COVERED TO PROTECT IT FROM THE WEATHER. THE PATIENT IS CURRENTLY TAKING MEDICAL MARIJUANA FOR NEUROPATHIC PAIN. PATIENT DENIES UNEXPLAINABLE WEIGHT LOSS, FEVER, CHILLS, NEW CHANGES ON HIS URINARY OR BOWEL CONTROL. FALL RISK SCREENING: SCREENING :NO FALLS IN THE PAST YEAR CURRENT MEDICATIONS TAKING LIDOCAINE 5 % OINTMENT 1 APPLICATION TO AFFECTED AREA NEEDED EXTERNALLY THREE TIMES A DAY TAKING CYMBALTA 30 MG CAPSULE DELAYED RELEASE PARTICLES 1 CAPSULE ORALLY TID TAKING GABAPENTIN 300 MG TABLET 1 CAPSULE ORALLY FOR PAIN FOUR TIMES DAILY TAKING ATENOLOL 50 MG TABLET 1 TABLET ORALLY ONCE A DAY TAKING LASIX 20 MG TABLET 1 TABLET ORALLY ONCE A DAY NEEDED TAKING VOLTAREN 1 % GEL ONE APPLICATION EXTERNALLY QID TO RIGHT UPPER EXTREMITY TAKING HYDROCORTISONE 2.5 % CREAM 1 APPLICATION TO AFFECTED AREA EXTERNALLY TWICE A DAY TAKING HYDROXYZINE HCL 25 MG TABLET 1 TABLET NEEDED ORALLY FOUR TIMES DAILY TAKING AMLODIPINE BESYLATE 5 MG TABLET 1 TABLETS ORALLY ONCE A DAY TAKING METOPROLOL SUCCINATE ER 100 MG TABLET EXTENDED RELEASE 24 HOUR 1 TABLET ORALLY ONCE A DAY UNKNOWN MAY USE - - MEDICAL MARIJUANA ORALLY DIRECTED MEDICATION LIST REVIEWED AND RECONCILED WITH THE PATIENT PAST MEDICAL HISTORY HTN ANXIETY REFLEX SYMPATHETIC DYSTROPHY/COMPLEX REGIONAL PAIN SYNDROME RIGHT UPPER EXTREMITY SPINAL STENOSIS- LUMBAR ALLERGIES BUSPIRONE HCL: FACIAL RASH, SWELLING, HIVES: ALLERGY IBUPROFEN: ACUTE RENAL FAILURE: ALLERGY LISINOPRIL: ACUTE RENAL FAILURE: ALLERGY CHLORTHALIDONE: RASH/FOLLICULITIS: SIDE EFFECTS SURGICAL HISTORY LAMINECTOMY/DISCECTOMY L1-S1 04/2015 DCS- CERVICAL 07/2011 INGUINAL HERNIA REPAIR GROIN LYMPH NODE EXCISION RIGHT HAND- SCREWS/PLATE 2001 ARTHROSCOPIC KNEE SURGERY DENTAL EXTRACTIONS DORSAL COLUMN STIMULATOR- THORACIC/LUMBAR- DR BURGESS 02/2017 FAMILY HISTORY FATHER: DIAGNOSED WITH HYPERTENSION MOTHER: DIAGNOSED WITH HYPERTENSION PATERNAL GRAND FATHER: DIAGNOSED WITH HEART DISEASE PATERNAL GRAND MOTHER: DIAGNOSED WITH DIABETES SOCIAL HISTORY GENERAL: TOBACCO USE ARE YOU A:CURRENT SMOKER ARE YOU INTERESTED IN QUITTING?NOT READY TO QUIT COUNSELED THE PATIENT ON SMOKING EFFECTS, EDUCATION [id number]/12/2018 HOW MANY CIGARETTES A DAY DO YOU SMOKE?11-20 HOW SOON AFTER YOU WAKE UP DO YOU SMOKE YOUR FIRST CIGARETTE?6-30 MIN HOW OFTEN DO YOU SMOKE CIGARETTES?EVERY DAY PATIENT COUNSELED ON THE DANGERS OF TOBACCO USE AND URGED TO QUIT:07/23/2018 ADDITIONAL FINDINGS: TOBACCO USERMODERATE CIGARETTE SMOKER (10-19 CIGS/DAY) SMOKING CESSATION INFORMATION GIVEN06/03/2018 BMI CARE GOAL FOLLOW-UP ABOVE NORMAL BMI FOLLOW-UPDIETARY MANAGEMENT EDUCATION, GUIDANCE, AND COUNSELING ALCOHOL SCREENING DID YOU HAVE A DRINK CONTAINING ALCOHOL IN THE PAST YEAR?NO POINTS0 INTERPRETATIONNEGATIVE RECREATIONAL DRUG USE DRUG USE?NO CAFFEINE CAFFEINE USE?YES HOW OFTEN AND HOW MUCH? 2 COFFEES DAILY HIV / HEP-C SCREENING HIV TEST OFFERED TO PATIENT:YES DATE OFFERED:05/01/2018 TEST ACCEPTED:NO HEP-C TEST OFFERED TO PATIENT:NO REASON:PATIENT DECLINED BROCHURE PROVIDED TO PATIENTNO ZOROASTRIAN [id number] CHRISTIANITY NO SCIENTOLOGIST BELIEFS THAT WOULD IMPACT HEALTH CARE. LANGUAGE LANGUAGES SPOKEN:AUSTRIAN LEARNING BARRIERS / SPECIAL NEEDS CHANGE FROM LAST VISIT?NO BARRIERS TO LEARNING?NO HEARING IMPAIRED?NO VISION IMPAIRED?NO COGNITIVELY IMPAIRED?NO READINESS TO LEARN?YES LEARNING PREFERENCES?NO LEARNING CAPABILITIES PRESENT?YES EMOTIONAL BARRIERS?NO SPECIAL DEVICES?NO QUIRK SANDER NEEDED?NO OCCUPATION: DISABLED. DIET: REGULAR. EXERCISE: NO REGULAR EXERCISE. MARITAL STATUS: SINGLE. OTHERS AT HOME: SPOUSE, CHILDREN. PAIN CLINIC PFS, CLERGY, PUBLIC HEALTH REFERRALS PFS REFERRAL NEEDED?NO CLERGY REFERRAL NEEDED?NO PUBLIC HEALTH REFERRAL NEEDED?NO WAS THE PROVIDER NOTIFIED OF ANY PERTINENT INFO?YES HAS THE PATIENT BEEN EDUCATED REGARDING HIS/HER PLAN OF CARE?YES HAS THE PATIENT BEEN EDUCATED REGARDING PAIN, THE RISK FOR PAIN, THE IMPORTANCE OF EFFECTIVE PAIN MANAGEMENT, AND THE PAIN ASSESSMENT PROCESS?YES ADVANCE DIRECTIVE ADVANCE DIRECTIVE DISCUSSED WITH PATIENT:YES DECLINED HCP INFORMATION 07/23/18 REVIEWED WITH PATIENT 05/07/18 1405 JSREVIEWED WITH PT 06/17/18 1144 BVREVEIWED WITH PT 06/18/18 BVRVIEWED WITH PATIENT 07/23/18 1327 JS. HOSPITALIZATION/MAJOR DIAGNOSTIC PROCEDURE SURGERIES ACUTE RENAL FAILURE 03/2016 REVIEW OF SYSTEMS REVIEWED BY: PROVIDER: MICHAEL MODI MD . CONSTITUTIONAL: ANY CHANGE IN YOUR MEDICAL CONDITION? NO . CHILLS NO . FEVER NO . INFECTION: DO YOU HAVE NEW INFECTIONS? NO . DO YOU HAVE HISTORY OF MRSA? NO . MUSCULOSKELETAL: ANY NEW PATTERNS OF PAIN OR NUMBNESS? NO . GASTROENTEROLOGY: ANY NEW CHANGE IN BOWEL CONTROL? NO . GENITOURINARY: ANY NEW CHANGE IN BLADDER CONTROL? NO . IS THERE A CHANCE YOU COULD BE ? NO . HEMATOLOGY/LYMPH: DO YOU TAKE ANY BLOOD THINNERS? (FOR EXAMPLE- COUMADIN, PLAVIX, AGGRENOX, PLATEL, PRADAXA, OR XARELTO) NO . WHEN WAS YOUR LAST DOSE? DATE: TIME: . NEUROLOGY: HAVE YOU FALLEN IN THE PAST 6 MONTHS? FALL IN SEPT NO URGENT CARE . ANY NEW EXTREMITY NUMBNESS OR WEAKNESS? NO . CARDIOLOGY: DO YOU HAVE A PACEMAKER OR DEFIBRILLATOR? NO . RESPIRATORY: HAVE YOU BEEN SICK IN THE PAST WEEK? NO . FEVER NO . FLU LIKE SYMPTOMS? NO . COUGH NO . INTEGUMENTARY: DO YOU HAVE ANY RASHES OR OPEN SORES? NO . ALLERGIC/IMMUNO: ARE YOU ALLERGIC TO SHELLFISH OR IV DYE? NO . ANY NEW ALLERGIES? NO . PSYCHIATRIC: DO YOU HAVE THOUGHTS OF HURTING YOURSELF OR SOMEONE ELSE? NO . ARE YOU ABUSED, NEGLECTED, OR IN AN UNSAFE ENVIRONMENT? NO . ENDOCRINOLOGY: ARE YOU DIABETIC? NO . OTHER: DO YOU NEED ANY PRESCRIPTIONS? NO . IF YES, PLEASE LIST: ____ . ANY NEW PROBLEMS WITH YOUR MEDICATIONS? NO . WHEN DID YOU LAST EAT? ____ . WHEN DID YOU LAST DRINK? ____ . WHAT DID YOU LAST DRINK? ____ . NAME OF PERSON DRIVING YOU HOME? ____ . DO YOU HAVE ANY OTHER QUESTIONS OR CONCERNS NO . VITAL SIGNS WT 284 LBS, HT 69 IN, BMI 41.93 INDEX, BP 129/81 MM HG, HR 95 /MIN, RR 18 /MIN, TEMP 96.6 F, OXYGEN SAT % 92%, SAFE IN ENV? (Y/N) YES, NA INITIALS AW 1450, REVIEWED BY: KG. EXAMINATION GENERAL EXAMINATION: PATIENT IS ALERT O X 3 AND COOPERATIVE. THE PATIENT EXPRESSED THAT HE WOULD NOT LIKE HIS ARM TOUCHED TODAY DUE TO PAIN FROM WEATHER. PATIENT HAS ARM COVERED. ASSESSMENTS RIGHT ARM PAIN - M79.601 (PRIMARY) NEUROPATHY OF RIGHT UPPER EXTREMITY - G56.91 TREATMENT RIGHT ARM PAIN CLINICAL NOTES: WE DISCUSSED SEVERAL ISSUES WITH MR. SANTOS'S PAIN MANAGEMENT CASE. AT THIS TIME, I WOULD LIKE FOR THE PATIENT TO CONTINUE MEDICATION MANAGEMENT. I WILL ALSO REQUEST INFORMATION REGARDING IF [employer] IS A SERVICE THAT CAN BE PROVIDED FOR THE PATIENT. THE PATIENT WILL FOLLOW UP WITH ME IN 6 WEEKS. INSTRUCTIONS WERE GIVEN, QUESTIONS WERE ANSWERED, PATIENT REPORTS UNDERSTANDING AND AGREES WITH THE PLAN. I, MINAL FREY, DOCUMENTED THE ABOVE INFORMATION ACTING A SCRIBE FOR DR. MODI. I HAVE REVIEWED THE ABOVE DOCUMENT, WRITTEN BY MINAL CASTRO AND I VERIFY THAT IT IS ACCURATE. PROCEDURES PN WORKMANS' COMP OPINION IN YOUR OPINION, WAS THE INCIDENT THAT THE PATIENT DESCRIBED THE COMPETENT MEDICAL CAUSE OF THIS INJURY/ILLNESS? YES ARE THE PATIENT'S COMPLAINTS CONSISTENT WITH HIS/HER HISTORY OF THE INJURY/ILLNESS? YES IS THE PATIENT'S HISTORY OF THE INJURY/ILLNESS CONSISTENT WITH YOUR OBJECTIVE FINDING? YES WHAT IS THE PERCENTAGE OF TEMPORARY IMPAIRMENT? TOTAL = 100% IS THE PATIENT WORKING? NO DOCTOR ON SITE: MICHAEL VICTOR MD PROCEDURE CODES FA211 ESTABILISHED PATIENT [facility] FACILITY CHARGE G8427 CURRENT MEDS W/DOSAGES DOCUMENTED G8730 PAIN ASSESS POS TOOL F/U PLAN DOC DISPOSITION & COMMUNICATION FOLLOW UP 6 WEEKS ELECTRONICALLY SIGNED BY MICHAEL MODI MD, MD ON 08/12/2018 AT 05:44 PM EST DISCLAIMER : THIS IS A VISIT SUMMARY EXTRACTED FROM THE [employer] CHART. IT IS NOT A COPY OF THE [employer] PROGRESS NOTE. IMMANUEL
== END ==
LOC: M PAIN 14:45
PROVIDERS: ATTEND Anesthesiology
DX: G56.91 Unspecified mononeuropathy of right upper limb (principal); M79.601 Pain in right arm; I10 Essential (primary) hypertension; F41.9 Anxiety disorder, unspecified; G90.511 Complex regional pain syndrome I of right upper limb; M48.061 Spinal stenosis, lumbar region without neurogenic claudication; F17.210 Nicotine dependence, cigarettes, uncomplicated; Z79.899 Other long term (current) drug therapy; Z88.6 Allergy status to analgesic agent; Z88.8 Allergy status to other drugs, medicaments and biological substances

== ENCOUNTER → 2018-08-26 | Outpatient (CLI) | payer MEDICARE, SELFPAY ==
[~2018-08-26] MED LIST changes: -AMLO5TAB4 PO; +AMLO5TAB6 PO; +ISOVUE-M 300 61% 15ML VIAL (Q9967) As Ordered ONE; +LIDOCAINE 1% SDV INJ 30 ML VIAL As Ordered ONE; +MIDAZOLAM INJ 2 MG/2 ML VIAL (J2250) As Ordered ONE; +fentaNYL 100 MCG/2 ML INJECTION (J3010) As Ordered ONE; +methylPREDNISolone SUSP 40 MG/ML (DEPO-medrol) VIAL (J1030) As Ordered ONE
--- NOTE | 2018-08-26 15:42 | REP ---
Partial lumbar spine series: Four views. History: Pain procedure. 12 seconds of fluoroscopy time is reported. Findings: A sequence of four last image hold fluoroscopically obtained spot radiographs of the lumbar spine and coccyx are presented. A dorsal column stimulator device is visible over the upper lumbar spine. Lumbar laminectomies appear to have been performed. Electronically Signed by Juan Carlos Parker MD 08/26/2018 06:13 P
--- NOTE | 2018-09-09 01:47 | ECWPNPC ---
PATIENT NAME: WARREN SANTOS : 1970 GENDER: MALE VISIT DATE: 08/26/2018 DISCHARGE DATE: 08/26/18 1157 VISIT LOCKED DATE TIME: PHYSICIAN: MICHAEL MODI MD RESOURCE: MICHAEL MODI MD REASON FOR APPOINTMENT 1. CAUDAL VS. LUMBAR EPIDURAL W/ IV SEDAT HISTORY OF PRESENT ILLNESS HISTORY OF PRESENT ILLNESS: PAIN THE PATIENT DESCRIBES THE PAIN... FALL RISK SCREENING: SCREENING :NO FALLS IN THE PAST YEAR CURRENT MEDICATIONS TAKING LIDOCAINE 5 % OINTMENT 1 APPLICATION TO AFFECTED AREA NEEDED EXTERNALLY THREE TIMES A DAY, NOTES: 08/24/18 TAKING VOLTAREN 1 % GEL ONE APPLICATION EXTERNALLY QID TO RIGHT UPPER EXTREMITY, NOTES: 08/24/18 TAKING HYDROCORTISONE 2.5 % CREAM 1 APPLICATION TO AFFECTED AREA EXTERNALLY TWICE A DAY, NOTES: NONE LATELY TAKING HYDROXYZINE HCL 25 MG TABLET 1 TABLET NEEDED ORALLY FOUR TIMES DAILY, NOTES: 08/26/18 AM TAKING METOPROLOL SUCCINATE ER 100 MG TABLET EXTENDED RELEASE 24 HOUR 1 TABLET ORALLY ONCE A DAY, NOTES: 08/26/18 AM TAKING MAY USE - - MEDICAL MARIJUANA ORALLY DIRECTED, NOTES: 08/25/18 TAKING ATENOLOL 50 MG TABLET 1 TABLET ORALLY ONCE A DAY, NOTES: 08/26/18 TAKING AMLODIPINE BESYLATE 5 MG TABLET 1 TABLETS ORALLY ONCE A DAY, NOTES: 08/26/18 AM TAKING LASIX 20 MG TABLET 1 TABLET ORALLY ONCE A DAY NEEDED, NOTES: NONE LATELY TAKING GABAPENTIN 300 MG TABLET 1 CAPSULE ORALLY FOR PAIN FOUR TIMES DAILY, NOTES: 08/26/18 AM TAKING CYMBALTA 30 MG CAPSULE DELAYED RELEASE PARTICLES 1 CAPSULE ORALLY TID, NOTES: 08/26/18 AM MEDICATION LIST REVIEWED AND RECONCILED WITH THE PATIENT PAST MEDICAL HISTORY HTN ANXIETY REFLEX SYMPATHETIC DYSTROPHY/COMPLEX REGIONAL PAIN SYNDROME RIGHT UPPER EXTREMITY SPINAL STENOSIS- LUMBAR ALLERGIES BUSPIRONE HCL: FACIAL RASH, SWELLING, HIVES: ALLERGY IBUPROFEN: ACUTE RENAL FAILURE: ALLERGY LISINOPRIL: ACUTE RENAL FAILURE: ALLERGY CHLORTHALIDONE: RASH/FOLLICULITIS: SIDE EFFECTS SURGICAL HISTORY LAMINECTOMY/DISCECTOMY L1-S1 04/2015 DCS- CERVICAL 07/2011 INGUINAL HERNIA REPAIR GROIN LYMPH NODE EXCISION RIGHT HAND- SCREWS/PLATE 2001 ARTHROSCOPIC KNEE SURGERY DENTAL EXTRACTIONS DORSAL COLUMN STIMULATOR- THORACIC/LUMBAR- DR BURGESS 02/2017 FAMILY HISTORY FATHER: DIAGNOSED WITH HYPERTENSION MOTHER: DIAGNOSED WITH HYPERTENSION PATERNAL GRAND FATHER: DIAGNOSED WITH HEART DISEASE PATERNAL GRAND MOTHER: DIAGNOSED WITH DIABETES SOCIAL HISTORY GENERAL: TOBACCO USE ARE YOU A:CURRENT SMOKER ARE YOU INTERESTED IN QUITTING?NOT READY TO QUIT COUNSELED THE PATIENT ON SMOKING EFFECTS, EDUCATION [id number]/15/2019 HOW MANY CIGARETTES A DAY DO YOU SMOKE?11-20 HOW SOON AFTER YOU WAKE UP DO YOU SMOKE YOUR FIRST CIGARETTE?6-30 MIN HOW OFTEN DO YOU SMOKE CIGARETTES?EVERY DAY PATIENT COUNSELED ON THE DANGERS OF TOBACCO USE AND URGED TO QUIT:08/26/2018 ADDITIONAL FINDINGS: TOBACCO USERMODERATE CIGARETTE SMOKER (10-19 CIGS/DAY) SMOKING CESSATION INFORMATION GIVEN07/31/2018 BMI CARE GOAL FOLLOW-UP ABOVE NORMAL BMI FOLLOW-UPDIETARY MANAGEMENT EDUCATION, GUIDANCE, AND COUNSELING ALCOHOL SCREENING DID YOU HAVE A DRINK CONTAINING ALCOHOL IN THE PAST YEAR?NO POINTS0 INTERPRETATIONNEGATIVE RECREATIONAL DRUG USE DRUG USE?NO CAFFEINE CAFFEINE USE?YES HOW OFTEN AND HOW MUCH? 2 COFFEES DAILY HIV / HEP-C SCREENING HIV TEST OFFERED TO PATIENT:YES DATE OFFERED:07/31/2018 TEST ACCEPTED:NO REASON:PATIENT DECLINED BROCHURE PROVIDED TO PATIENTNO HEP-C TEST OFFERED TO PATIENT:NO CHRISTIANITY [id number] HINDUISM NO CHURCH BELIEFS THAT WOULD IMPACT HEALTH CARE. LANGUAGE LANGUAGES SPOKEN:MONTSERRATIAN LEARNING BARRIERS / SPECIAL NEEDS CHANGE FROM LAST VISIT?NO BARRIERS TO LEARNING?NO HEARING IMPAIRED?NO VISION IMPAIRED?NO COGNITIVELY IMPAIRED?NO READINESS TO LEARN?YES LEARNING PREFERENCES?NO LEARNING CAPABILITIES PRESENT?YES EMOTIONAL BARRIERS?NO SPECIAL DEVICES?NO RADIO STATION AUDIO ENGINEER NEEDED?NO OCCUPATION: DISABLED. DIET: REGULAR. EXERCISE: NO REGULAR EXERCISE. MARITAL STATUS: SINGLE. OTHERS AT HOME: SPOUSE, CHILDREN. PAIN CLINIC PFS, CLERGY, PUBLIC HEALTH REFERRALS PFS REFERRAL NEEDED?NO CLERGY REFERRAL NEEDED?NO PUBLIC HEALTH REFERRAL NEEDED?NO WAS THE PROVIDER NOTIFIED OF ANY PERTINENT INFO?YES HAS THE PATIENT BEEN EDUCATED REGARDING HIS/HER PLAN OF CARE?YES HAS THE PATIENT BEEN EDUCATED REGARDING PAIN, THE RISK FOR PAIN, THE IMPORTANCE OF EFFECTIVE PAIN MANAGEMENT, AND THE PAIN ASSESSMENT PROCESS?YES ADVANCE DIRECTIVE ADVANCE DIRECTIVE DISCUSSED WITH PATIENT:YES DECLINED HCP INFORMATION HOSPITALIZATION/MAJOR DIAGNOSTIC PROCEDURE SURGERIES ACUTE RENAL FAILURE 03/2016 REVIEW OF SYSTEMS REVIEWED BY: PROVIDER: . CONSTITUTIONAL: ANY CHANGE IN YOUR MEDICAL CONDITION? NO . CHILLS NO . FEVER NO . INFECTION: DO YOU HAVE NEW INFECTIONS? NO . DO YOU HAVE HISTORY OF MRSA? NO . MUSCULOSKELETAL: ANY NEW PATTERNS OF PAIN OR NUMBNESS? NO . GASTROENTEROLOGY: ANY NEW CHANGE IN BOWEL CONTROL? NO . GENITOURINARY: ANY NEW CHANGE IN BLADDER CONTROL? NO . IS THERE A CHANCE YOU COULD BE ? NO . HEMATOLOGY/LYMPH: DO YOU TAKE ANY BLOOD THINNERS? (FOR EXAMPLE- COUMADIN, PLAVIX, AGGRENOX, PLATEL, PRADAXA, OR XARELTO) NO . WHEN WAS YOUR LAST DOSE? DATE: TIME: . NEUROLOGY: HAVE YOU FALLEN IN THE PAST 6 MONTHS? YES, 08/05/18 FELL ON ICE PT DENIES SEEKING TX FOR ANY INJURIES . ANY NEW EXTREMITY NUMBNESS OR WEAKNESS? NO . CARDIOLOGY: DO YOU HAVE A PACEMAKER OR DEFIBRILLATOR? YES, DCS . RESPIRATORY: HAVE YOU BEEN SICK IN THE PAST WEEK? NO . FEVER NO . FLU LIKE SYMPTOMS? NO . COUGH NO . INTEGUMENTARY: DO YOU HAVE ANY RASHES OR OPEN SORES? NO . ALLERGIC/IMMUNO: ARE YOU ALLERGIC TO SHELLFISH OR IV DYE? NO . ANY NEW ALLERGIES? NO . PSYCHIATRIC: DO YOU HAVE THOUGHTS OF HURTING YOURSELF OR SOMEONE ELSE? NO . ARE YOU ABUSED, NEGLECTED, OR IN AN UNSAFE ENVIRONMENT? NO . ENDOCRINOLOGY: ARE YOU DIABETIC? NO . OTHER: DO YOU NEED ANY PRESCRIPTIONS? NO . IF YES, PLEASE LIST: ____ . ANY NEW PROBLEMS WITH YOUR MEDICATIONS? NO . WHEN DID YOU LAST EAT? 08/25/18 PM . WHEN DID YOU LAST DRINK? 08/26/18 0800 . WHAT DID YOU LAST DRINK? WATER . NAME OF PERSON DRIVING YOU HOME? LUCERO . DO YOU HAVE ANY OTHER QUESTIONS OR CONCERNS NO . VITAL SIGNS WT 276.8 LBS, HT 69 IN, BMI 40.87 INDEX, BP 130/77 MM HG, HR 79 /MIN, RR 20 /MIN, TEMP 98.6 F, OXYGEN SAT % 94%, NA INITIALS SC 10:00, REVIEWED BY: EM. ASSESSMENTS LUMBAR POST-LAMINECTOMY SYNDROME - M96.1 (PRIMARY) SPINAL STENOSIS OF LUMBAR REGION, UNSPECIFIED WHETHER NEUROGENIC CLAUDICATION PRESENT - M48.061 PROCEDURES PN CAUDAL EPIDURALS PRE PROCEDURE DIAGNOSIS LUMBAR POST LAMINECTOMY PAIN SYNDROME, LUMBAR SPINAL STENOSIS POST PROCEDURE DIAGNOSIS LUMBAR POST LAMINECTOMY PAIN SYNDROME, LUMBAR SPINAL STENOSIS PROCEDURE CAUDAL EPIDURAL STEROID INJECTION UNDER FLUOROSCOPIC GUIDANCE. SURGEON DR. MICHAEL MODI WIDE PIECE GOODS INSPECTOR NONE ANESTHESIA LOCAL WITH IV SEDATION PRE PROCEDURE NOTE THE PATIENT HAS HISTORY OF CHRONIC LOW BACK PAIN. I EVALUATE THE PATIENT AND REVIEWED THE CHART. I WENT OVER THE RISKS, ALTERNATIVES, AND BENEFITS ASSOCIATED WITH THIS PROCEDURE. THE PATIENT WOULD LIKE TO PROCEED AND GIVE CONSENT TO PERFORMED THE PROCEDURE. PATIENT WOULD LIKE TO MOVE FORWARD WITH IV SEDATION DUE TO DISCOMFORT, PAIN AND ANXIETY ASSOCIATED WITH THE PROCEDURE. THE PATIENT DENIES UNEXPLAINABLE WEIGHT LOSS, FEVER, CHILLS, OR NEW CHANGES IN URINARY OR BOWEL CONTROL. DESCRIPTION OF PROCEDURE THE PATIENT WAS BROUGHT TO THE PROCEDURE ROOM AND PLACED IN THE PRONE POSITION. THE LUMBOSACRAL AREA WAS CLEANED WITH BETADINE SOLUTION AND DRAPED ASEPTICALLY. THE PROCEDURE WAS DONE UNDER STERILE CONDITIONS. I CHECKED LATERALITY AND THE LEVEL WHERE THE PROCEDURE WAS GOING TO BE PERFORMED WITH THE PATIENT AND THE SUPPORTING STAFF AT THE MOMENT OF THE TIME OUT IN THE PROCEDURE ROOM. UNDER FLUOROSCOPIC GUIDANCE, THE TARGET POINT WAS SELECTED AT THE EPIDURAL SPACE BELOW THE SACROCOCCYGEAL LIGAMENT. LIDOCAINE 0.5% WAS USE TO NUMB THE SKIN AND THE SUBCUTANEOUS TISSUE BELOW IT. AN EPIDURAL TUOHY NEEDLE, 17-GAUGE, WAS ADVANCED UNDER FLUOROSCOPIC GUIDANCE AND FOLLOWING PATIENT FEEDBACK UNTIL THE EPIDURAL SPACE WAS REACHED 6 CM DEEP INTO THE SKIN BY THE LOSS OF RESISTANCE TECHNIQUE. ISOVUE M DYE 30%, 0.25 ML, WAS INJECTED SHOWING ADEQUATE SPREAD OF THE DYE. THEN, A SOLUTION OF 6 ML OF NORMAL SALINE WITH DEPO-MEDROL 60 MG WAS INJECTED SLOWLY FOLLOWING THE PATIENT FEEDBACK. PATIENT RECEIVED VERSED 2 MG AND FENTANYL 300 MCG IV DIVIDED DOSES. THERE WAS NO EVIDENCE OF BLOOD, PARESTHESIA OR CEREBROSPINAL FLUID DURING THE PROCEDURE. THE PATIENT WAS SENT TO THE RECOVERY ROOM. THE PATIENT WAS MOVING THE EXTREMITIES AND DOING WELL. THERE WAS NO COMPLICATION DURING THE PROCEDURE. FLUOROSCOPY TIME WAS 12 SECONDS. FACE TO FACE TIME WAS 23 MINUTES. POST PROCEDURE NOTE THE PATIENT WILL BE SEEN IN A FOLLOW UP IN THE NEXT FEW WEEKS. INSTRUCTIONS WERE GIVEN, QUESTIONS WERE ANSWERED, AND THE PATIENT EXPRESSED UNDERSTANDING AND AGREES WITH THE PLAN. I, LUIS ENRIQUE ANDINO, DOCUMENTED THE ABOVE INFORMATION ACTING A SCRIBE FOR DR. MODI. I HAVE REVIEWED THE ABOVE DOCUMENT, WRITTEN BY LUIS ENRIQUE DAMCIOIBDeanna AND I VERIFY THAT IT IS ACCURATE. DIAGNOSTIC IMAGING [facility] FLUORO GUIDE SPINE INJECTION (PAIN)[id number] PROCEDURE CODES 6045F RADXPS IN END [id number] PXD [id number] LUMBAR/SACRAL W/ IMAGING [id number] MOD SED SAME PHYS/QHP 5/>YRS 74224 MOD SED SAME PHYS/QHP EA DISPOSITION & COMMUNICATION FOLLOW UP 3 WEEKS ELECTRONICALLY SIGNED BY MICHAEL MODI MD, MD ON 09/08/2018 AT 11:54 AM EST DISCLAIMER : THIS IS A VISIT SUMMARY EXTRACTED FROM THE [email or web address]. IT IS NOT A COPY OF THE [email or web address] PROGRESS [facility]. MTDD
== END ==
LOC: M PAIN 10:00
PROVIDERS: ATTEND Anesthesiology
DX: M96.1 Postlaminectomy syndrome, not elsewhere classified (principal); M48.061 Spinal stenosis, lumbar region without neurogenic claudication; I10 Essential (primary) hypertension; F41.9 Anxiety disorder, unspecified; F17.210 Nicotine dependence, cigarettes, uncomplicated; G90.511 Complex regional pain syndrome I of right upper limb; Z79.899 Other long term (current) drug therapy; Z88.6 Allergy status to analgesic agent; Z88.8 Allergy status to other drugs, medicaments and biological substances
CPT/HCPCS: 62323; 99152; 99153; J1030; J2250; J3010; Q9967

== ENCOUNTER → 2018-09-03 | Outpatient (CLI) | payer OTHER ==
[~2018-09-03] MED LIST changes: -ISOVUE-M 300 61% 15ML VIAL (Q9967) As Ordered ONE; -LIDOCAINE 1% SDV INJ 30 ML VIAL As Ordered ONE; -MIDAZOLAM INJ 2 MG/2 ML VIAL (J2250) As Ordered ONE; -fentaNYL 100 MCG/2 ML INJECTION (J3010) As Ordered ONE; -methylPREDNISolone SUSP 40 MG/ML (DEPO-medrol) VIAL (J1030) As Ordered ONE
--- NOTE | 2018-09-22 00:22 | ECWPNPC ---
PATIENT NAME: WARREN SANTOS : 1970 GENDER: MALE VISIT DATE: 09/03/2018 DISCHARGE DATE: 09/03/18 1336 VISIT LOCKED DATE TIME: PHYSICIAN: MICHAEL MODI MD RESOURCE: MICHAEL MODI MD REASON FOR APPOINTMENT 1. W/C R ARM HISTORY OF PRESENT ILLNESS HISTORY OF PRESENT ILLNESS: PAIN THE PATIENT DESCRIBES THE PAIN... THE PATIENT DESCRIBES THE PAIN... 47 YEAR OLD MALE PATIENT WITH A HISTORY OF RIGHT ARM PAIN. PATIENT DESCRIBES THE PAIN ACHING, BURNING, SORE, TENDER, SHARP, STABBING, SHOOTING, AND CONTINUOUS WITH A PAIN SCORE OF 7-10/10 DEPENDING ON PHYSICAL ACTIVITY AND WEATHER. PATIENT WAS HURT IN A WORK RELATED INJURY ON 02/09/2011 WHEN HE WAS WORKING AT [employer] WHEN A COWORKER STEPPED ON HIS HAND. THE PATIENT STATES THAT HE CANNOT USE HIS RIGHT ARM AT ALL AND HAS IT COVERED TO PROTECT IT FROM THE WEATHER. THE PATIENT IS CURRENTLY USING CYMBALTA AND GABAPENTIN TO AID IN PAIN RELIEF. PATIENT DENIES UNEXPLAINABLE WEIGHT LOSS, FEVER, CHILLS, NEW CHANGES ON HIS URINARY OR BOWEL CONTROL. FALL RISK SCREENING: SCREENING :NO FALLS IN THE PAST YEAR CURRENT MEDICATIONS TAKING LIDOCAINE 5 % OINTMENT 1 APPLICATION TO AFFECTED AREA NEEDED EXTERNALLY THREE TIMES A DAY, NOTES: 08/24/18 TAKING VOLTAREN 1 % GEL ONE APPLICATION EXTERNALLY QID TO RIGHT UPPER EXTREMITY, NOTES: 08/24/18 TAKING HYDROCORTISONE 2.5 % CREAM 1 APPLICATION TO AFFECTED AREA EXTERNALLY TWICE A DAY, NOTES: NONE LATELY TAKING HYDROXYZINE HCL 25 MG TABLET 1 TABLET NEEDED ORALLY FOUR TIMES DAILY, NOTES: 08/26/18 AM TAKING METOPROLOL SUCCINATE ER 100 MG TABLET EXTENDED RELEASE 24 HOUR 1 TABLET ORALLY ONCE A DAY, NOTES: 08/26/18 AM TAKING MAY USE - - MEDICAL MARIJUANA ORALLY DIRECTED, NOTES: 08/25/18 TAKING ATENOLOL 50 MG TABLET 1 TABLET ORALLY ONCE A DAY, NOTES: 08/26/18 TAKING AMLODIPINE BESYLATE 5 MG TABLET 1 TABLETS ORALLY ONCE A DAY, NOTES: 08/26/18 AM TAKING LASIX 20 MG TABLET 1 TABLET ORALLY ONCE A DAY NEEDED, NOTES: NONE LATELY TAKING GABAPENTIN 300 MG TABLET 1 CAPSULE ORALLY FOR PAIN FOUR TIMES DAILY, NOTES: 08/26/18 AM TAKING CYMBALTA 30 MG CAPSULE DELAYED RELEASE PARTICLES 1 CAPSULE ORALLY TID, NOTES: 08/26/18 AM MEDICATION LIST REVIEWED AND RECONCILED WITH THE PATIENT PAST MEDICAL HISTORY HTN ANXIETY REFLEX SYMPATHETIC DYSTROPHY/COMPLEX REGIONAL PAIN SYNDROME RIGHT UPPER EXTREMITY SPINAL STENOSIS- LUMBAR ALLERGIES BUSPIRONE HCL: FACIAL RASH, SWELLING, HIVES: ALLERGY IBUPROFEN: ACUTE RENAL FAILURE: ALLERGY LISINOPRIL: ACUTE RENAL FAILURE: ALLERGY CHLORTHALIDONE: RASH/FOLLICULITIS: SIDE EFFECTS SURGICAL HISTORY LAMINECTOMY/DISCECTOMY L1-S1 04/2015 DCS- CERVICAL 07/2011 INGUINAL HERNIA REPAIR GROIN LYMPH NODE EXCISION RIGHT HAND- SCREWS/PLATE 2001 ARTHROSCOPIC KNEE SURGERY DENTAL EXTRACTIONS DORSAL COLUMN STIMULATOR- THORACIC/LUMBAR- DR BURGESS 02/2017 FAMILY HISTORY FATHER: DIAGNOSED WITH HYPERTENSION MOTHER: DIAGNOSED WITH HYPERTENSION PATERNAL GRAND FATHER: DIAGNOSED WITH HEART DISEASE PATERNAL GRAND MOTHER: DIAGNOSED WITH DIABETES SOCIAL HISTORY GENERAL: TOBACCO USE ARE YOU A:CURRENT SMOKER ARE YOU INTERESTED IN QUITTING?NOT READY TO QUIT COUNSELED THE PATIENT ON SMOKING EFFECTS, EDUCATION [id number]/15/2019 HOW MANY CIGARETTES A DAY DO YOU SMOKE?11-20 HOW SOON AFTER YOU WAKE UP DO YOU SMOKE YOUR FIRST CIGARETTE?6-30 MIN HOW OFTEN DO YOU SMOKE CIGARETTES?EVERY DAY PATIENT COUNSELED ON THE DANGERS OF TOBACCO USE AND URGED TO QUIT:08/26/2018 ADDITIONAL FINDINGS: TOBACCO USERMODERATE CIGARETTE SMOKER (10-19 CIGS/DAY) SMOKING CESSATION INFORMATION GIVEN09/03/2018 BMI CARE GOAL FOLLOW-UP ABOVE NORMAL BMI FOLLOW-UPDIETARY MANAGEMENT EDUCATION, GUIDANCE, AND COUNSELING ALCOHOL SCREENING DID YOU HAVE A DRINK CONTAINING ALCOHOL IN THE PAST YEAR?NO POINTS0 INTERPRETATIONNEGATIVE RECREATIONAL DRUG USE DRUG USE?NO CAFFEINE CAFFEINE USE?YES HOW OFTEN AND HOW MUCH? 2 COFFEES DAILY HIV / HEP-C SCREENING HIV TEST OFFERED TO PATIENT:YES DATE OFFERED:07/31/2018 TEST ACCEPTED:NO HEP-C TEST OFFERED TO PATIENT:NO REASON:PATIENT DECLINED BROCHURE PROVIDED TO PATIENTNO VOODOO [id number] NONDENOMINATIONAL NO SABIANISM BELIEFS THAT WOULD IMPACT HEALTH CARE. LANGUAGE LANGUAGES SPOKEN:PERSIAN LEARNING BARRIERS / SPECIAL NEEDS CHANGE FROM LAST VISIT?NO BARRIERS TO LEARNING?NO HEARING IMPAIRED?NO VISION IMPAIRED?NO COGNITIVELY IMPAIRED?NO READINESS TO LEARN?YES LEARNING PREFERENCES?NO LEARNING CAPABILITIES PRESENT?YES EMOTIONAL BARRIERS?NO SPECIAL DEVICES?NO METER ENGINEER NEEDED?NO OCCUPATION: DISABLED. DIET: REGULAR. EXERCISE: NO REGULAR EXERCISE. MARITAL STATUS: SINGLE. OTHERS AT HOME: SPOUSE, CHILDREN. PAIN CLINIC PFS, CLERGY, PUBLIC HEALTH REFERRALS PFS REFERRAL NEEDED?NO CLERGY REFERRAL NEEDED?NO PUBLIC HEALTH REFERRAL NEEDED?NO WAS THE PROVIDER NOTIFIED OF ANY PERTINENT INFO?YES HAS THE PATIENT BEEN EDUCATED REGARDING HIS/HER PLAN OF CARE?YES HAS THE PATIENT BEEN EDUCATED REGARDING PAIN, THE RISK FOR PAIN, THE IMPORTANCE OF EFFECTIVE PAIN MANAGEMENT, AND THE PAIN ASSESSMENT PROCESS?YES ADVANCE DIRECTIVE ADVANCE DIRECTIVE DISCUSSED WITH PATIENT:YES DECLINED HCP INFORMATION HOSPITALIZATION/MAJOR DIAGNOSTIC PROCEDURE SURGERIES ACUTE RENAL FAILURE 03/2016 REVIEW OF SYSTEMS REVIEWED BY: PROVIDER: MICHAEL MODI MD . CONSTITUTIONAL: ANY CHANGE IN YOUR MEDICAL CONDITION? NO . CHILLS NO . FEVER NO . INFECTION: DO YOU HAVE NEW INFECTIONS? NO . DO YOU HAVE HISTORY OF MRSA? NO . MUSCULOSKELETAL: ANY NEW PATTERNS OF PAIN OR NUMBNESS? NO . GASTROENTEROLOGY: ANY NEW CHANGE IN BOWEL CONTROL? NO . GENITOURINARY: ANY NEW CHANGE IN BLADDER CONTROL? NO . IS THERE A CHANCE YOU COULD BE ? NO . HEMATOLOGY/LYMPH: DO YOU TAKE ANY BLOOD THINNERS? (FOR EXAMPLE- COUMADIN, PLAVIX, AGGRENOX, PLATEL, PRADAXA, OR XARELTO) NO . WHEN WAS YOUR LAST DOSE? DATE: TIME: . NEUROLOGY: HAVE YOU FALLEN IN THE PAST 12 MONTHS? YES, FELL AT HOME, DID NOT REPORT TO ED . ANY NEW EXTREMITY NUMBNESS OR WEAKNESS? NO . CARDIOLOGY: DO YOU HAVE A PACEMAKER OR DEFIBRILLATOR? YES, DCS . RESPIRATORY: HAVE YOU BEEN SICK IN THE PAST WEEK? NO . FEVER NO . FLU LIKE SYMPTOMS? NO . COUGH NO . INTEGUMENTARY: DO YOU HAVE ANY RASHES OR OPEN SORES? NO . ALLERGIC/IMMUNO: ARE YOU ALLERGIC TO IV DYE? NO . ANY NEW ALLERGIES? NO . PSYCHIATRIC: DO YOU HAVE THOUGHTS OF HURTING YOURSELF OR SOMEONE ELSE? NO . ARE YOU ABUSED, NEGLECTED, OR IN AN UNSAFE ENVIRONMENT? NO . ENDOCRINOLOGY: ARE YOU DIABETIC? NO . OTHER: DO YOU NEED ANY PRESCRIPTIONS? NO . IF YES, PLEASE LIST: ____ . ANY NEW PROBLEMS WITH YOUR MEDICATIONS? NO . WHEN DID YOU LAST EAT? ____ . WHEN DID YOU LAST DRINK? ____ . WHAT DID YOU LAST DRINK? ____ . NAME OF PERSON DRIVING YOU HOME? ____ . DO YOU HAVE ANY OTHER QUESTIONS OR CONCERNS PT IS A CURRENT SMOKER, REFUSING ANY SMOKING CESSATION COUSELING AT THIS TIME. DS . VITAL SIGNS WT 282.4 LBS, HT 69 IN, BMI 41.70 INDEX, BP 131/84 MM HG, HR 65 /MIN, RR 18 /MIN, TEMP 97.9 F, OXYGEN SAT % 95%, SAFE IN ENV? (Y/N) Y, NA INITIALS AW 1252, REVIEWED BY: DS. EXAMINATION GENERAL EXAMINATION: PATIENT IS ALERT O X 3 AND COOPERATIVE. THE PATIENT HAS HIS ARM COVERED COMPLETELY. THE PATIENT EXPRESSED THAT HE WOULD NOT LIKE HIS ARM TOUCHED TODAY DUE TO PAIN FROM WEATHER. 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 SANTOS'S PAIN MANAGEMENT CASE. I WILL CONTACT FELICE SAAVEDRA FROM [employer] FOR HIM TO CHECK THE PATIENT'S DCS IMPLANT TO SEE IF THERE CAN BE ANY ADJUSTMENTS MADE. I WILL ALSO INCREASE THE PATIENT'S CYMBALTA TO 60MG TABLETS AND HE WILL CONTINUE USING THE GABAPENTIN. THE PATIENT WILL FOLLOW UP IN 6 WEEKS. INSTRUCTIONS WERE GIVEN, QUESTIONS WERE ANSWERED, PATIENT REPORTS UNDERSTANDING AND AGREES WITH THE PLAN. I, LUIS ENRIQUE ANDINO, DOCUMENTED THE ABOVE INFORMATION ACTING A SCRIBE FOR DR. MODI. I HAVE REVIEWED THE ABOVE DOCUMENT, WRITTEN BY LUIS ENRIQUE CASTRO AND I VERIFY THAT IT IS ACCURATE. OTHERS REFILL CYMBALTA CAPSULE DELAYED RELEASE PARTICLES, 60 MG, 1 CAPSULE, ORALLY, BID, 30 DAY(S), 60 CAPSULE, REFILLS 1 REFILL GABAPENTIN TABLET, 300 MG, 1 CAPSULE, ORALLY FOR PAIN, FOUR TIMES DAILY, 30 DAY(S), 120, REFILLS 1, NOTES: 08/26/18 AM PROCEDURES PN WORKMANS' COMP OPINION IN YOUR OPINION, WAS THE INCIDENT THAT THE PATIENT DESCRIBED THE COMPETENT MEDICAL CAUSE OF THIS INJURY/ILLNESS? YES ARE THE PATIENT'S COMPLAINTS CONSISTENT WITH HIS/HER HISTORY OF THE INJURY/ILLNESS? YES IS THE PATIENT'S HISTORY OF THE INJURY/ILLNESS CONSISTENT WITH YOUR OBJECTIVE FINDING? YES WHAT IS THE PERCENTAGE OF TEMPORARY IMPAIRMENT? TOTAL = 100% IS THE PATIENT WORKING? NO DOCTOR ON SITE: MICHAEL VICTOR MD PROCEDURE CODES FA211 ESTABILISHED PATIENT [facility] FACILITY CHARGE G6827 CURRENT MEDS W/DOSAGES DOCUMENTED G5211 PAIN ASSESS POS TOOL F/U PLAN DOC DISPOSITION & COMMUNICATION FOLLOW UP 6 WEEKS (REASON: W/C RIGHT ARM) ELECTRONICALLY SIGNED BY MICHAEL MODI MD, MD ON 09/21/2018 AT 06:22 PM EST DISCLAIMER : THIS IS A VISIT SUMMARY EXTRACTED FROM THE [email or web address] CHART. IT IS NOT A COPY OF THE [email or web address] PROGRESS NOTE. MTDD
== END ==
LOC: M PAIN 13:00
PROVIDERS: ATTEND Anesthesiology
DX: M79.2 Neuralgia and neuritis, unspecified (principal); M79.601 Pain in right arm; I10 Essential (primary) hypertension; F41.9 Anxiety disorder, unspecified; F17.210 Nicotine dependence, cigarettes, uncomplicated; E66.01 Morbid (severe) obesity due to excess calories; Z68.41 Body mass index [BMI] 40.0-44.9, adult; Z79.899 Other long term (current) drug therapy; Z88.6 Allergy status to analgesic agent; Z88.8 Allergy status to other drugs, medicaments and biological substances; Z96.9 Presence of functional implant, unspecified

== ENCOUNTER → 2018-10-13 | Outpatient (CLI) | payer OTHER ==
--- NOTE | 2018-10-27 00:12 | ECWPNPC ---
PATIENT NAME: WARREN SANTOS : 1970 GENDER: MALE VISIT DATE: 10/13/2018 DISCHARGE DATE: 10/13/18 1507 VISIT LOCKED DATE TIME: PHYSICIAN: MICHAEL MODI MD RESOURCE: MICHAEL MODI MD REASON FOR APPOINTMENT 1. W/C R ARM HISTORY OF PRESENT ILLNESS HISTORY OF PRESENT ILLNESS: PAIN THE PATIENT DESCRIBES THE PAIN... 47 YEAR OLD MALE PATIENT WITH A HISTORY OF CHRONIC RIGHT ARM PAIN. THE PATIENT DESCRIBES THE PAIN ACHING, BURNING, SORE, TENDER, SHARP, STABBING, SHOOTING, AND CONTINUOUS WITH A PAIN SCORE OF 7-8/10 DEPENDING ON PHYSICAL ACTIVITY AND WEATHER. THE PATIENT WAS HURT IN A WORK RELATED INJURY ON 02/09/2011 WHEN HE WAS WORKING AT [employer] WHEN A COWORKER STEPPED ON HIS HAND. THE PATIENT SAYS HE ALWAYS HAS HIS RIGHT ARM COVERED TO PROTECT IT. THE PATIENT IS CURRENTLY USING GABAPENTIN AND CYMBALTA TO AID IN PAIN RELIEF. THE PATIENT SAYS THAT HE HAD AN ADJUSTMENT DONE TO HIS DCS THAT HAS BEEN HELPING. PATIENT DENIES UNEXPLAINABLE WEIGHT LOSS, FEVER, CHILLS, NEW CHANGES ON HIS URINARY OR BOWEL CONTROL. FALL RISK SCREENING: SCREENING : NO FALLS IN THE PAST YEAR. CURRENT MEDICATIONS TAKING CYMBALTA 60 MG CAPSULE DELAYED RELEASE PARTICLES 1 CAPSULE ORALLY BID TAKING GABAPENTIN 300 MG TABLET 1 CAPSULE ORALLY FOR PAIN FOUR TIMES DAILY TAKING LIDOCAINE 5 % OINTMENT 1 APPLICATION TO AFFECTED AREA NEEDED EXTERNALLY THREE TIMES A DAY TAKING VOLTAREN 1 % GEL ONE APPLICATION EXTERNALLY QID TO RIGHT UPPER EXTREMITY TAKING HYDROCORTISONE 2.5 % CREAM 1 APPLICATION TO AFFECTED AREA EXTERNALLY TWICE A DAY TAKING HYDROXYZINE HCL 25 MG TABLET 1 TABLET NEEDED ORALLY FOUR TIMES DAILY TAKING METOPROLOL SUCCINATE ER 100 MG TABLET EXTENDED RELEASE 24 HOUR 1 TABLET ORALLY ONCE A DAY TAKING MAY USE - - MEDICAL MARIJUANA ORALLY DIRECTED TAKING ATENOLOL 50 MG TABLET 1 TABLET ORALLY ONCE A DAY TAKING AMLODIPINE BESYLATE 5 MG TABLET 1 TABLETS ORALLY ONCE A DAY TAKING LASIX 20 MG TABLET 1 TABLET ORALLY ONCE A DAY NEEDED MEDICATION LIST REVIEWED AND RECONCILED WITH THE PATIENT PAST MEDICAL HISTORY HTN ANXIETY REFLEX SYMPATHETIC DYSTROPHY/COMPLEX REGIONAL PAIN SYNDROME RIGHT UPPER EXTREMITY SPINAL STENOSIS- LUMBAR ALLERGIES BUSPIRONE HCL: FACIAL RASH, SWELLING, HIVES: ALLERGY IBUPROFEN: ACUTE RENAL FAILURE: ALLERGY LISINOPRIL: ACUTE RENAL FAILURE: ALLERGY CHLORTHALIDONE: RASH/FOLLICULITIS: SIDE EFFECTS SURGICAL HISTORY LAMINECTOMY/DISCECTOMY L1-S1 04/2015 DCS- CERVICAL 07/2011 INGUINAL HERNIA REPAIR GROIN LYMPH NODE EXCISION RIGHT HAND- SCREWS/PLATE 2001 ARTHROSCOPIC KNEE SURGERY DENTAL EXTRACTIONS DORSAL COLUMN STIMULATOR- THORACIC/LUMBAR- DR BURGESS 02/2017 FAMILY HISTORY FATHER: DIAGNOSED WITH HYPERTENSION MOTHER: DIAGNOSED WITH HYPERTENSION PATERNAL GRAND FATHER: DIAGNOSED WITH HEART DISEASE PATERNAL GRAND MOTHER: DIAGNOSED WITH DIABETES SOCIAL HISTORY GENERAL: TOBACCO USE ARE YOU A:CURRENT SMOKER ARE YOU INTERESTED IN QUITTING?NOT READY TO QUIT COUNSELED THE PATIENT ON SMOKING EFFECTS, EDUCATION [id number]/15/2019 HOW MANY CIGARETTES A DAY DO YOU SMOKE?11-20 HOW SOON AFTER YOU WAKE UP DO YOU SMOKE YOUR FIRST CIGARETTE?6-30 MIN HOW OFTEN DO YOU SMOKE CIGARETTES?EVERY DAY PATIENT COUNSELED ON THE DANGERS OF TOBACCO USE AND URGED TO QUIT:08/26/2018 ADDITIONAL FINDINGS: TOBACCO USERMODERATE CIGARETTE SMOKER (10-19 CIGS/DAY) SMOKING CESSATION INFORMATION GIVEN09/03/2018 BMI CARE GOAL FOLLOW-UP ABOVE NORMAL BMI FOLLOW-UPDIETARY MANAGEMENT EDUCATION, GUIDANCE, AND COUNSELING ALCOHOL SCREENING DID YOU HAVE A DRINK CONTAINING ALCOHOL IN THE PAST YEAR?NO POINTS0 INTERPRETATIONNEGATIVE RECREATIONAL DRUG USE DRUG USE?NO CAFFEINE CAFFEINE USE?YES HOW OFTEN AND HOW MUCH? 2 COFFEES DAILY HIV / HEP-C SCREENING HIV TEST OFFERED TO PATIENT:YES DATE OFFERED:07/31/2018 TEST ACCEPTED:NO HEP-C TEST OFFERED TO PATIENT:NO REASON:PATIENT DECLINED BROCHURE PROVIDED TO PATIENTNO YAZIDISM [id number] ZOROASTRIANISM NO PROTESTANT BELIEFS THAT WOULD IMPACT HEALTH CARE. LANGUAGE LANGUAGES SPOKEN:FINNISH LEARNING BARRIERS / SPECIAL NEEDS CHANGE FROM LAST VISIT?NO BARRIERS TO LEARNING?NO HEARING IMPAIRED?NO VISION IMPAIRED?NO COGNITIVELY IMPAIRED?NO READINESS TO LEARN?YES LEARNING PREFERENCES?NO LEARNING CAPABILITIES PRESENT?YES EMOTIONAL BARRIERS?NO SPECIAL DEVICES?NO PULP DRIER NEEDED?NO OCCUPATION: DISABLED. DIET: REGULAR. EXERCISE: NO REGULAR EXERCISE. MARITAL STATUS: SINGLE. OTHERS AT HOME: SPOUSE, CHILDREN. PAIN CLINIC PFS, CLERGY, PUBLIC HEALTH REFERRALS PFS REFERRAL NEEDED?NO CLERGY REFERRAL NEEDED?NO PUBLIC HEALTH REFERRAL NEEDED?NO WAS THE PROVIDER NOTIFIED OF ANY PERTINENT INFO?YES HAS THE PATIENT BEEN EDUCATED REGARDING HIS/HER PLAN OF CARE?YES HAS THE PATIENT BEEN EDUCATED REGARDING PAIN, THE RISK FOR PAIN, THE IMPORTANCE OF EFFECTIVE PAIN MANAGEMENT, AND THE PAIN ASSESSMENT PROCESS?YES ADVANCE DIRECTIVE ADVANCE DIRECTIVE DISCUSSED WITH PATIENT:YES DECLINED HCP INFORMATION REVIEWED WITH PATIENT 10/13/18 1348 JS. HOSPITALIZATION/MAJOR DIAGNOSTIC PROCEDURE SURGERIES ACUTE RENAL FAILURE 03/2016 REVIEW OF SYSTEMS REVIEWED BY: PROVIDER: MICHAEL MODI MD . CONSTITUTIONAL: ANY CHANGE IN YOUR MEDICAL CONDITION? NO . CHILLS NO . FEVER NO . INFECTION: DO YOU HAVE NEW INFECTIONS? NO . DO YOU HAVE HISTORY OF MRSA? NO . MUSCULOSKELETAL: ANY NEW PATTERNS OF PAIN OR NUMBNESS? NO . GASTROENTEROLOGY: ANY NEW CHANGE IN BOWEL CONTROL? NO . GENITOURINARY: ANY NEW CHANGE IN BLADDER CONTROL? NO . IS THERE A CHANCE YOU COULD BE ? NO . HEMATOLOGY/LYMPH: DO YOU TAKE ANY BLOOD THINNERS? (FOR EXAMPLE- COUMADIN, PLAVIX, AGGRENOX, PLATEL, PRADAXA, OR XARELTO) NO . WHEN WAS YOUR LAST DOSE? DATE: TIME: . NEUROLOGY: HAVE YOU FALLEN IN THE PAST 12 MONTHS? YES, STATES DISCUSSED AT PREVIOUS VISIT . ANY NEW EXTREMITY NUMBNESS OR WEAKNESS? NO. HAS DORSAL COLUMN STIMULATORS. . CARDIOLOGY: DO YOU HAVE A PACEMAKER OR DEFIBRILLATOR? NO . RESPIRATORY: HAVE YOU BEEN SICK IN THE PAST WEEK? NO . FEVER NO . FLU LIKE SYMPTOMS? NO . COUGH NO . INTEGUMENTARY: DO YOU HAVE ANY RASHES OR OPEN SORES? NO . ALLERGIC/IMMUNO: ARE YOU ALLERGIC TO IV DYE? NO . ANY NEW ALLERGIES? NO . PSYCHIATRIC: DO YOU HAVE THOUGHTS OF HURTING YOURSELF OR SOMEONE ELSE? NO . ARE YOU ABUSED, NEGLECTED, OR IN AN UNSAFE ENVIRONMENT? NO . ENDOCRINOLOGY: ARE YOU DIABETIC? NO . OTHER: DO YOU NEED ANY PRESCRIPTIONS? NO . IF YES, PLEASE LIST: ____ . ANY NEW PROBLEMS WITH YOUR MEDICATIONS? NO . WHEN DID YOU LAST EAT? ____ . WHEN DID YOU LAST DRINK? ____ . WHAT DID YOU LAST DRINK? ____ . NAME OF PERSON DRIVING YOU HOME? ____ . DO YOU HAVE ANY OTHER QUESTIONS OR CONCERNS NO . VITAL SIGNS WT 282.8 LBS, HT 69 IN, BMI 41.76 INDEX, BP 139/84 MM HG, HR 72 /MIN, RR 18 /MIN, TEMP 97.7 F, OXYGEN SAT % 96%, SAFE IN ENV? (Y/N) YES, NA INITIALS AW 1346, REVIEWED BY: MERLE. EXAMINATION GENERAL EXAMINATION: PATIENT IS ALERT O X 3 AND COOPERATIVE. THE PATIENT IS GUARDING HIS RIGHT ARM AND HAS IT COVERED IN A SLEEVE. 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 SANTOS'S PAIN MANAGEMENT CASE. THE PATIENT WILL CONTINUE USING THE CYMBALTA AND GABAPENTIN FOR THE NEUROPATHIC PAIN. THE PATIENT WILL FOLLOW UP IN 6 WEEKS. INSTRUCTIONS WERE GIVEN, QUESTIONS WERE ANSWERED, PATIENT REPORTS UNDERSTANDING AND AGREES WITH THE PLAN. I, LUIS ENRIQUE ANDINO, DOCUMENTED THE ABOVE INFORMATION ACTING A SCRIBE FOR DR. MODI. I HAVE REVIEWED THE ABOVE DOCUMENT, WRITTEN BY LUIS ENRIQUE DAMICOIBDeanna AND I VERIFY THAT IT IS ACCURATE. PROCEDURES PN WORKMANS' COMP OPINION IN YOUR OPINION, WAS THE INCIDENT THAT THE PATIENT DESCRIBED THE COMPETENT MEDICAL CAUSE OF THIS INJURY/ILLNESS? YES ARE THE PATIENT'S COMPLAINTS CONSISTENT WITH HIS/HER HISTORY OF THE INJURY/ILLNESS? YES IS THE PATIENT'S HISTORY OF THE INJURY/ILLNESS CONSISTENT WITH YOUR OBJECTIVE FINDING? YES WHAT IS THE PERCENTAGE OF TEMPORARY IMPAIRMENT? TOTAL = 100% IS THE PATIENT WORKING? NO DOCTOR ON SITE: MICHAEL VICTOR MD PROCEDURE CODES FA211 ESTABILISHED PATIENT [facility] FACILITY CHARGE G8427 CURRENT MEDS W/DOSAGES DOCUMENTED G8730 PAIN ASSESS POS TOOL F/U PLAN DOC DISPOSITION & COMMUNICATION FOLLOW UP 6 WEEKS ELECTRONICALLY SIGNED BY MICHAEL MODI MD, MD ON 10/25/2018 AT 07:19 PM EDT DISCLAIMER : THIS IS A VISIT SUMMARY EXTRACTED FROM THE [employer] CHART. IT IS NOT A COPY OF THE [employer] PROGRESS NOTE. [email or web address]
== END ==
LOC: M PAIN 13:00
PROVIDERS: ATTEND Anesthesiology
DX: M79.2 Neuralgia and neuritis, unspecified (principal); M79.601 Pain in right arm; G89.29 Other chronic pain; I10 Essential (primary) hypertension; F41.9 Anxiety disorder, unspecified; F17.210 Nicotine dependence, cigarettes, uncomplicated; E66.01 Morbid (severe) obesity due to excess calories; Z68.41 Body mass index [BMI] 40.0-44.9, adult; Z79.899 Other long term (current) drug therapy; Z88.8 Allergy status to other drugs, medicaments and biological substances; Z87.448 Personal history of other diseases of urinary system

== ENCOUNTER → 2018-10-31 | Outpatient (REF) | payer MEDICARE, SELFPAY ==
[~2018-10-31] MED LIST changes: -/DOXE100CA PO; -/DULO30CA PO; -/HCTZ25TA PO; +CYMB1CAP5 PO; +CYMB60CA3 PO; +DOXE1CAP8 PO; +HYDR-3644 PO; +LASI20TA3 PO; +LISI40TA52 PO; -LISI40TAB PO; +MEDICAL MARIJUANA INH; +METO1TAB33 PO
[2018-10-31 16:47] LABS: ALBUMIN 3.7 GM/DL (3.2-5.2); ALT/SGPT 24 U/L (12-78); BILIRUBIN,TOTAL 0.3 MG/DL (0.2-1.0); BLOOD UREA NITROGEN 13 MG/DL (7-18); CALCIUM LEVEL 9.4 MG/DL (8.5-10.1); CARBON DIOXIDE LEVEL 31 MEQ/L (21-32); CHLORIDE LEVEL 101 MEQ/L (98-107); CHOLESTEROL LEVEL 207 MG/DL (<200); CHOLESTEROL RISK RATIO 7.137 (<5); CREATININE FOR GFR 1.08 MG/DL (0.70-1.30); GLOMERULAR FILTRATION RATE > 60.0 (>60); GLUCOSE, FASTING 90 MG/DL (70-100); HDL CHOLESTEROL 29 MG/DL (>40); LDL CHOLESTEROL 128 MG/DL (<100); NON-HDL-C 178 MG/DL; POTASSIUM SERUM 4.2 MEQ/L (3.5-5.1); SODIUM LEVEL 138 MEQ/L (136-145); TOTAL PROTEIN 7.7 GM/DL (6.4-8.2); TRIGLYCERIDES LEVEL 251 MG/DL (<150)
[2018-10-31 16:54] LABS: HEMOGLOBIN A1c 5.5 %
== END ==
LOC: M SFHCCLAY 11:10
PROVIDERS: ATTEND Family Medicine
DX: R73.01 Impaired fasting glucose (principal); I10 Essential (primary) hypertension

== ENCOUNTER → 2018-11-04 | Outpatient (CLI) | payer MEDICARE ==
--- NOTE | 2018-11-14 01:44 | ECWPNPC ---
PATIENT NAME: WARREN SANTOS : 1970 GENDER: MALE VISIT DATE: 11/04/2018 DISCHARGE DATE: 11/04/18 1551 VISIT LOCKED DATE TIME: PHYSICIAN: MICHAEL MODI MD RESOURCE: MICHAEL MODI MD REASON FOR APPOINTMENT 1. NON COMP-POST PROC HISTORY OF PRESENT ILLNESS HISTORY OF PRESENT ILLNESS: PAIN THE PATIENT DESCRIBES THE PAIN... 47 YEAR OLD MALE PATIENT WITH A HISTORY OF CHRONIC LOW BACK PAIN. THE PATIENT DESCRIBES THE PAIN ACHING, BURNING, SORE, TENDER, SHARP, STABBING, SHOOTING, AND CONTINUOUS WITH A PAIN SCORE OF 7-10/10 DEPENDING ON PHYSICAL ACTIVITY. THE PATIENT SAYS HIS PAIN STARTS IN HIS LOW BACK AREA AND RADIATES DOWN HIS LEFT LEG. THE PATIENT SAYS HE HAS HAD THIS PAIN FOR MANY YEARS AND HAS CONTROLLED IT WITH MEDICATIONS AND A DCS IMPLANT. THE PATIENT HAS TRIED PHYSICAL THERAPY IN THE PAST, BUT SAYS IT DID NOT HELP. THE PATIENT HAS HAD A CAUDAL EPIDURAL IN THE PAST AND SAYS HE HAD GOOD PAIN RELIEF FOR OVER 2 MONTHS. PATIENT DENIES UNEXPLAINABLE WEIGHT LOSS, FEVER, CHILLS, NEW CHANGES ON HIS URINARY OR BOWEL CONTROL. FALL RISK SCREENING: SCREENING :NO FALLS REPORTED IN THE LAST YEAR CURRENT MEDICATIONS TAKING CYMBALTA 60 MG CAPSULE DELAYED RELEASE PARTICLES 1 CAPSULE ORALLY BID TAKING GABAPENTIN 300 MG TABLET 1 CAPSULE ORALLY FOR PAIN FOUR TIMES DAILY TAKING METOPROLOL SUCCINATE ER 100 MG TABLET EXTENDED RELEASE 24 HOUR 1 TABLET ORALLY ONCE A DAY TAKING MAY USE - - MEDICAL MARIJUANA ORALLY DIRECTED TAKING ATENOLOL 50 MG TABLET 1 TABLET ORALLY ONCE A DAY TAKING AMLODIPINE BESYLATE 5 MG TABLET 1 TABLETS ORALLY ONCE A DAY TAKING LASIX 20 MG TABLET 1 TABLET ORALLY ONCE A DAY NEEDED TAKING HYDROXYZINE HCL 25 MG TABLET 1 TABLET NEEDED ORALLY FOUR TIMES DAILY NOT-TAKING LIDOCAINE 5 % OINTMENT 1 APPLICATION TO AFFECTED AREA NEEDED EXTERNALLY THREE TIMES A DAY NOT-TAKING VOLTAREN 1 % GEL ONE APPLICATION EXTERNALLY QID TO RIGHT UPPER EXTREMITY NOT-TAKING HYDROCORTISONE 2.5 % CREAM 1 APPLICATION TO AFFECTED AREA EXTERNALLY TWICE A DAY MEDICATION LIST REVIEWED AND RECONCILED WITH THE PATIENT PAST MEDICAL HISTORY HTN ANXIETY REFLEX SYMPATHETIC DYSTROPHY/COMPLEX REGIONAL PAIN SYNDROME RIGHT UPPER EXTREMITY SPINAL STENOSIS- LUMBAR SACROILIITIS MYALGIA ACUTE RENAL FAILURE ALLERGIES BUSPIRONE HCL: FACIAL RASH, SWELLING, HIVES - ALLERGY IBUPROFEN: ACUTE RENAL FAILURE - ALLERGY LISINOPRIL: ACUTE RENAL FAILURE - ALLERGY CHLORTHALIDONE: RASH/FOLLICULITIS - SIDE EFFECTS SURGICAL HISTORY LAMINECTOMY/DISCECTOMY L1-S1 04/2015 DCS- CERVICAL 07/2011 INGUINAL HERNIA REPAIR GROIN LYMPH NODE EXCISION RIGHT HAND- SCREWS/PLATE 2001 ARTHROSCOPIC KNEE SURGERY DENTAL EXTRACTIONS DORSAL COLUMN STIMULATOR- THORACIC/LUMBAR- DR BURGESS 02/2017 FAMILY HISTORY FATHER: ALIVE, DIAGNOSED WITH HYPERTENSION MOTHER: ALIVE, HYPERTENSION, HEART DISEASE, DIABETES PATERNAL GRAND FATHER: HEART DISEASE PATERNAL GRAND MOTHER: DIABETES 2 SON(S) - HEALTHY. SOCIAL HISTORY GENERAL: TOBACCO USE ARE YOU A:CURRENT SMOKER ARE YOU INTERESTED IN QUITTING?NOT READY TO QUIT COUNSELED THE PATIENT ON SMOKING EFFECTS, EDUCATION [id number]/26/2019 HOW MANY CIGARETTES A DAY DO YOU SMOKE?11-20 HOW SOON AFTER YOU WAKE UP DO YOU SMOKE YOUR FIRST CIGARETTE?6-30 MIN HOW OFTEN DO YOU SMOKE CIGARETTES?EVERY DAY PATIENT COUNSELED ON THE DANGERS OF TOBACCO USE AND URGED TO QUIT:11/04/2018 ADDITIONAL FINDINGS: TOBACCO USERMODERATE CIGARETTE SMOKER (10-19 CIGS/DAY) SMOKING CESSATION INFORMATION GIVEN10/31/2018 11/04/18 PT DECLINED BMI CARE GOAL FOLLOW-UP ABOVE NORMAL BMI FOLLOW-UPDIETARY MANAGEMENT EDUCATION, GUIDANCE, AND COUNSELING ALCOHOL SCREENING DID YOU HAVE A DRINK CONTAINING ALCOHOL IN THE PAST YEAR?NO POINTS0 INTERPRETATIONNEGATIVE RECREATIONAL DRUG USE DRUG USE?NO CAFFEINE CAFFEINE USE?YES HOW OFTEN AND HOW MUCH? 2 COFFEES DAILY HIV / HEP-C SCREENING HIV TEST OFFERED TO PATIENT:YES DATE OFFERED:10/31/2018 TEST ACCEPTED:NO HEP-C TEST OFFERED TO PATIENT:NO REASON:PATIENT DECLINED BROCHURE PROVIDED TO PATIENTNO HOAHAOISM [id number] SPIRITISM NO JEHOVAH'S WITNESS BELIEFS THAT WOULD IMPACT HEALTH CARE. LANGUAGE LANGUAGES SPOKEN:EGYPTIAN LEARNING BARRIERS / SPECIAL NEEDS CHANGE FROM LAST VISIT?NO BARRIERS TO LEARNING?NO HEARING IMPAIRED?NO VISION IMPAIRED?YES :CORRECTIVE LENSES WEARS READING GLASSES SOMETIMES COGNITIVELY IMPAIRED?NO READINESS TO LEARN?YES LEARNING PREFERENCES?NO LEARNING CAPABILITIES PRESENT?YES EMOTIONAL BARRIERS?NO SPECIAL DEVICES?NO CREATIVE/ART DIRECTOR NEEDED?NO DOMESTIC VIOLENCE DO YOU FEEL SAFE IN YOUR ENVIRONMENT?YES OCCUPATION: DISABLED. DIET: REGULAR. EXERCISE: NO REGULAR EXERCISE. MARITAL STATUS: SINGLE. OTHERS AT HOME: SPOUSE, CHILDREN. PAIN CLINIC PFS, CLERGY, PUBLIC HEALTH REFERRALS PFS REFERRAL NEEDED?NO CLERGY REFERRAL NEEDED?NO PUBLIC HEALTH REFERRAL NEEDED?NO WAS THE PROVIDER NOTIFIED OF ANY PERTINENT INFO? N/A HAS THE PATIENT BEEN EDUCATED REGARDING HIS/HER PLAN OF CARE?YES HAS THE PATIENT BEEN EDUCATED REGARDING PAIN, THE RISK FOR PAIN, THE IMPORTANCE OF EFFECTIVE PAIN MANAGEMENT, AND THE PAIN ASSESSMENT PROCESS?YES ADVANCE DIRECTIVE ADVANCE DIRECTIVE DISCUSSED WITH PATIENT:YES 11/04/18 PT. DOES NOT HAVE ANY ADVANCED DIRECTIVES AND HE DECLINED INFORAMTION ON HCP AT THIS TIME REVIEWED WITH PATIENT 10/13/18 1348 JS. HOSPITALIZATION/MAJOR DIAGNOSTIC PROCEDURE SURGERIES ACUTE RENAL FAILURE 03/2016 REVIEW OF SYSTEMS REVIEWED BY: PROVIDER: MICHAEL MODI MD . CONSTITUTIONAL: ANY CHANGE IN YOUR MEDICAL CONDITION? NO . CHILLS NO . FEVER NO . INFECTION: DO YOU HAVE NEW INFECTIONS? NO . DO YOU HAVE HISTORY OF MRSA? NO . MUSCULOSKELETAL: ANY NEW PATTERNS OF PAIN OR NUMBNESS? NO . GASTROENTEROLOGY: ANY NEW CHANGE IN BOWEL CONTROL? NO . GENITOURINARY: ANY NEW CHANGE IN BLADDER CONTROL? NO . IS THERE A CHANCE YOU COULD BE ? NO . HEMATOLOGY/LYMPH: DO YOU TAKE ANY BLOOD THINNERS? (FOR EXAMPLE- COUMADIN, PLAVIX, AGGRENOX, PLATEL, PRADAXA, OR XARELTO) NO . WHEN WAS YOUR LAST DOSE? DATE: TIME: . NEUROLOGY: HAVE YOU FALLEN IN THE PAST 12 MONTHS? YES, --NOT EVALUATED AFTER. HAS HAD INCREASE IN BACK PAIN SINCE . ANY NEW EXTREMITY NUMBNESS OR WEAKNESS? NO . CARDIOLOGY: DO YOU HAVE A PACEMAKER OR DEFIBRILLATOR? NO 2 DORSAL COLUMN STIMULATOR . RESPIRATORY: HAVE YOU BEEN SICK IN THE PAST WEEK? NO . FEVER NO . FLU LIKE SYMPTOMS? NO . COUGH NO . INTEGUMENTARY: DO YOU HAVE ANY RASHES OR OPEN SORES? NO . ALLERGIC/IMMUNO: ARE YOU ALLERGIC TO IV DYE? NO . ANY NEW ALLERGIES? NO . PSYCHIATRIC: DO YOU HAVE THOUGHTS OF HURTING YOURSELF OR SOMEONE ELSE? NO . ARE YOU ABUSED, NEGLECTED, OR IN AN UNSAFE ENVIRONMENT? NO . ENDOCRINOLOGY: ARE YOU DIABETIC? NO . OTHER: DO YOU NEED ANY PRESCRIPTIONS? NO . IF YES, PLEASE LIST: ____ . ANY NEW PROBLEMS WITH YOUR MEDICATIONS? NO . WHEN DID YOU LAST EAT? ____ . WHEN DID YOU LAST DRINK? ____ . WHAT DID YOU LAST DRINK? ____ . NAME OF PERSON DRIVING YOU HOME? ____ . 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 VITAL SIGNS WT 289 LBS, HT 69 IN, BMI 42.67 INDEX, BP 131/85 MM HG, HR 65 /MIN, RR 18 /MIN, TEMP 98.2 F, OXYGEN SAT % 96%, SAFE IN ENV? (Y/N) Y, NA INITIALS SC 14:51, REVIEWED BY: IDANIA. EXAMINATION GENERAL EXAMINATION: PATIENT IS ALERT O X 3 AND COOPERATIVE. LUNGS CLEAR, TO AUSCULTATION. HEART: NO MURMURS OR GALLOPS; FACIAL CRANIAL NERVES ARE GROSSLY NORMAL. GOOD SYMMETRY OF FACIAL MUSCLE MOVEMENT. NORMAL VISUAL MARQUEZ. ANTALGIC GAIT. LEFT LEG IS WEAKER AT EXTENSION AND FLEXION. STRAIGHT LEG RAISE OF THE LEFT LEG IS POSITIVE AT [address] OF THE LUMBAR SPINE DONE ON 05/04/2016 SHOWS POST LAMINECTOMY CHANGES. ASSESSMENTS LUMBAR POST-LAMINECTOMY SYNDROME - M96.1 (PRIMARY) LUMBAR RADICULOPATHY - M54.16 TREATMENT LUMBAR POST-LAMINECTOMY SYNDROME CLINICAL NOTES: WE DISCUSSED SEVERAL ISSUES WITH MR. SANTOS'S PAIN MANAGEMENT CASE. DUE TO THE LUMBAR RADICULOPATHY, I WOULD LIKE TO MOVE FORWARD WITH A CAUDAL EPIDURAL STEROID INJECTION AT THIS TIME. WE DISCUSSED THE BENEFITS, RISKS, AND ALTERNATIVES OF THE INJECTION AND THE PATIENT WOULD LIKE TO PROCEED. THE PATIENT WOULD LIKE TO MOVE FORWARD WITH IV SEDATION DUE TO PAIN AND ANXIETY ASSOCIATED WITH THE PROCEDURE. THE PATIENT WILL FOLLOW UP IN 2 MONTHS. INSTRUCTIONS WERE GIVEN, QUESTIONS WERE ANSWERED, PATIENT REPORTS UNDERSTANDING AND AGREES WITH THE PLAN. I, LUIS ENRIQUE ANDINO, DOCUMENTED THE ABOVE INFORMATION ACTING A SCRIBE FOR DR. MODI. I HAVE REVIEWED THE ABOVE DOCUMENT, WRITTEN BY LUIS ENRIQUE DAMICOIBDeanna AND I VERIFY THAT IT IS ACCURATE. . PREVENTIVE MEDICINE PAIN CLINIC TEACHING: PROCEDURE TEACHING PT DECLINED PRINTED INFORMATION ON EPIDURAL STEROID INJECTIONS STATING HE HAS HAD THEM IN THE PAST AND IS FAMILIAR WITH IT. PRE-PROCEDURE INSTRUCTIONS GIVEN TO AND REVIEWED WITH PT AND HE VERBALIZED UNDERSTANDING.. PROCEDURE CODES FA211 ESTABILISHED PATIENT [facility] FACILITY CHARGE [id number] CURRENT MEDS W/DOSAGES DOCUMENTED G7043 PAIN ASSESS POS TOOL F/U PLAN DOC DISPOSITION & COMMUNICATION FOLLOW UP 2 MONTHS ELECTRONICALLY SIGNED BY MICHAEL MODI MD, MD ON 11/13/2018 AT 06:07 PM EDT DISCLAIMER : THIS IS A VISIT SUMMARY EXTRACTED FROM THE [employer] CHART. IT IS NOT A COPY OF THE Project [employer] PROGRESS NOTE. IMMANUEL
== END ==
LOC: M PAIN 14:45
PROVIDERS: ATTEND Anesthesiology
DX: M96.1 Postlaminectomy syndrome, not elsewhere classified (principal); M54.16 Radiculopathy, lumbar region; I10 Essential (primary) hypertension; F41.9 Anxiety disorder, unspecified; G90.511 Complex regional pain syndrome I of right upper limb; M48.061 Spinal stenosis, lumbar region without neurogenic claudication; M79.18 Myalgia, other site; F17.210 Nicotine dependence, cigarettes, uncomplicated; Z79.899 Other long term (current) drug therapy; Z88.6 Allergy status to analgesic agent; Z88.8 Allergy status to other drugs, medicaments and biological substances

== ENCOUNTER 2018-11-07 21:29 | Inpatient (IN) | payer MEDICARE ==
[~2018-11-07] VITALS: Ht 177.8 cm; Wt 128.9 kg
[~2018-11-07 21:29] MED LIST changes: -CYMB60CA3 PO; -LASI20TA3 PO; -MEDICAL MARIJUANA INH; -METO1TAB33 PO
[2018-11-07] MEDS ORDERED: METO1TAB33 PO (21:43)
[2018-11-07] MEDS ORDERED: MEDICAL MARIJUANA INH (21:43)
[2018-11-07] MEDS ORDERED: LASI20TA3 PO (21:43)
[2018-11-07] MEDS ORDERED: MORPHINE 4 MG/ML 1ML VIAL/SYRINGE (J2270) IM ONE (22:15)
[2018-11-07] MEDS ORDERED: fentaNYL 100 MCG/2 ML INJECTION (J3010) IM ONE (22:45)
--- NOTE | 2018-11-07 23:39 | REPVR ---
EXAM: CT Left Lower Extremity Without Contrast. Hip EXAM DATE/TIME: 11/07/2018 10:56 PM CLINICAL HISTORY: 47 years old, male; Injury or trauma; Fall; Initial encounter; Blunt trauma; Hip; Left; Additional info: ? Femoral neck FX on xrays, left TECHNIQUE: Imaging protocol: CT of the Left lower extremity without contrast was performed. Exam focused on the hip. Coronal and sagittal reformatted images were created and reviewed. Radiation optimization: All CT scans at this facility use at least one of these dose optimization techniques: automated exposure control; mA and/or kV adjustment per patient size (includes targeted exams where dose is matched to clinical indication); or iterative reconstruction. COMPARISON: No relevant prior studies available. FINDINGS: Bones/joints: No acute fracture or dislocation. Alignment anatomic. Mild left hip joint osteoarthrosis. Soft tissues: Grossly unremarkable. IMPRESSION: No CT evidence of acute fracture or dislocation. If the patient's clinical symptoms persist or worsen, MRI would provide a more sensitive evaluation for occult fracture. Electronically signed by: Dino Cohn On 11/07/2018 23:38:42 PM
[2018-11-08] MEDS ORDERED: diazePAM 5 MG TAB PO ONE
[2018-11-08] MEDS ORDERED: GABA-843 PO (00:26)
[2018-11-08] MEDS ORDERED: CYMB60CA3 PO (00:26)
[2018-11-08] MEDS ORDERED: FUROSEMIDE 20 MG TAB PO PRN (00:45)
[2018-11-08] MEDS ORDERED: DOCUSATE SODIUM 100 MG CAP PO PRN (00:45)
[2018-11-08 01:04] LABS: HEMATOCRIT 43.3 % (42.0-52.0); HEMOGLOBIN 14.5 g/dl (13.5-17.5); MEAN CORPUSCULAR HEMOGLOBIN 28.4 pg (27.0-33.0); MEAN CORPUSCULAR HGB CONC 33.5 g/dl (32.0-36.5); MEAN CORPUSCULAR VOLUME 84.7 fl (80.0-96.0); PLATELET COUNT, AUTOMATED 268 10^3/uL (150-450); RED BLOOD COUNT 5.11 10^6/uL (4.30-6.10); WHITE BLOOD COUNT 12.7 10^3/uL (4.0-10.0)
[2018-11-08] MEDS: PERCOCET 5MG/325MG TAB PO PRN ×4 (01:08→21:27)
[2018-11-08 01:14] LABS: INR 1.01; PROTHROMBIN TIME 13.4 SECONDS (12.1-14.4)
[2018-11-08 01:15] LABS: PARTIAL THROMBOPLASTIN TIME 29.7 SECONDS (25.4-37.6)
[2018-11-08] MEDS ORDERED: MIDAZOLAM 10MG/5ML SYRUP PO ONE (01:15)
[2018-11-08 01:25] LABS: BLOOD UREA NITROGEN 11 MG/DL (7-18); CALCIUM LEVEL 8.5 MG/DL (8.5-10.1); CARBON DIOXIDE LEVEL 26 MEQ/L (21-32); CHLORIDE LEVEL 103 MEQ/L (98-107); CREATININE FOR GFR 0.97 MG/DL (0.70-1.30); GLOMERULAR FILTRATION RATE > 60.0 (>60); GLUCOSE, FASTING 93 MG/DL (70-100); SODIUM LEVEL 137 MEQ/L (136-145)
[2018-11-08 01:40] VITALS: BP 147/81
--- NOTE | 2018-11-08 01:45 | REPVR ---
EXAM: CT Head Without Contrast EXAM DATE/TIME: 11/08/2018 12:53 AM CLINICAL HISTORY: 47 years old, male; Injury or trauma; Fall TECHNIQUE: Imaging protocol: Axial computed tomography images of the head/brain without contrast. Radiation optimization: All CT scans at this facility use at least one of these dose optimization techniques: automated exposure control; mA and/or kV adjustment per patient size (includes targeted exams where dose is matched to clinical indication); or iterative reconstruction. COMPARISON: No relevant prior studies available. FINDINGS: Brain: Left posterior frontal encephalomalacia, compatible with remote insult. No CT evidence of acute intracranial hemorrhage or acute territorial infarction. No significant mass effect or midline shift. Basal cisterns patent. Ventricles: Normal in size and configuration. Bones/joints: No acute osseous abnormality. Sinuses: Minimal ethmoid mucosal thickening. Mastoid air cells: Grossly unremarkable. Soft tissues: Grossly unremarkable. IMPRESSION: 1. No CT evidence of acute intracranial pathology. 2. Additional findings, as above. Electronically signed by: Dino Cohn On 11/08/2018 01:44:57 AM
[2018-11-08] MEDS ORDERED: GABAPENTIN 300 MG CAP PO ONE (03:45)
[2018-11-08] MEDS ORDERED: MORPHINE 4 MG/ML 1ML VIAL/SYRINGE (J2270) IV ONE (04:00)
[2018-11-08] MEDS: HEPARIN SOD (PORCINE) 5000 UNITS/ML VIAL SC SCH ×3 (05:46→21:28)
[2018-11-08 06:00] VITALS: BP 135/83
--- NOTE | 2018-11-08 08:21 | REP ---
Clinical: Left hip pain with fall. Technique: Frontal view of the pelvis with neutral and cross-table lateral views of the left hip. Findings: Mild/early moderate degenerative changes to the pelvis and hips noted (left greater than right). Subtle injury involving the left femoral neck cannot be excluded and requires clinical correlation. Impression: Degenerative changes. While no definite acute fractures appreciated. Irregularity to the left femoral neck is suggested and may reflect a subtle injury. Clinical correlation is required. Electronically Signed by Andrey Prado MD 11/08/2018 08:13 A
[2018-11-08] MEDS: DULoxetine 30 MG CAP (CYMBALTA) PO SCH ×2 (08:23→21:28)
[2018-11-08] MEDS: GABAPENTIN 300 MG CAP PO SCH ×4 (08:23→21:28)
[2018-11-08] MEDS: METOPROLOL SUCC (TopROL XL) 100MG *XL* TAB PO SCH (08:30)
[2018-11-08] MEDS: amLODIPine 5 MG TAB PO SCH (08:31)
[2018-11-08] MEDS: hydrOXYzine 25 MG TAB PO PRN (08:33)
[2018-11-08] MEDS ORDERED: ATENOLOL 50 MG TAB PO SCH (09:00)
--- NOTE | 2018-11-08 09:04 | HPE ---
DATE OF ADMISSION: 11/07/2018 CHIEF COMPLAINT: Fall, left hip pain and inability to bear weight. HISTORY OF PRESENT ILLNESS: The patient is a 47-year-old male with significant past medical history with hypertension, chronic regional pain syndrome in the right upper extremity, chronic low back pain status post multiple thoracic and lumbar surgeries, discectomy, laminectomy, who presents to the emergency room he states after his legs gave out. He denies any loss of consciousness, any chest pain or any shortness of breath. He states that after his legs gave out he was unable to bear weight on his left lower extremity. The patient is intolerable to any movement of the left lower extremity, no flexion, extension, inability to ambulate. I am unclear if the patient is malingering or if there is actual pain. The patient has two spinal stimulators and therefore is not a candidate for MRI. A CT of the lower extremity focused on the hip in the emergency room, was negative for any pathology. He is able to <<1:10>> sensation in the lower extremity and move his toes. He denies any fevers or chills. He does have urinary incontinence at baseline. PAST MEDICAL HISTORY: See history of present illness. PAST SURGICAL HISTORY: He has had discectomy. Laminectomy. He has had pins and screws in the right arm status post trauma. He has had knee surgeries. Hernia surgeries. ALLERGIES: 1. BUSPIRONE. 2. CHLORTHALIDONE. 3. IBUPROFEN. 4. LISINOPRIL. HOME MEDICATIONS: Include: - amlodipine - atenolol - docusate - Cymbalta - Lasix - gabapentin - hydroxyzine - metoprolol SOCIAL HISTORY: He is currently a smoker, a pack and a half a day. Denies alcohol, illicit drug use. FAMILY HISTORY: Noncontributory. REVIEW OF SYSTEMS: A 12 point review of systems was completed, all of which were negative except those listed in the history of present illness. VITAL SIGNS ON ADMISSION: Temperature 97.7, pulse rate of 74, respirations 16, blood pressure 157/84, satting at 92% on room air. PHYSICAL EXAMINATION: GENERAL: The patient appears well nourished. He does not appear to be in any distress. HEAD: Normocephalic, atraumatic. EYES: Extraocular movements are intact. Pupils equal, round and reactive to light. NECK: Supple. No jugular venous pressure (JVP). LUNGS: Good air entry on the anterior chest. No crackles or wheezes. CARDIOVASCULAR: Regular rate and rhythm. Normal S1 and S2. ABDOMEN: Soft, nontender, nondistended. Positive bowel sounds. EXTREMITIES: No edema, no calf tenderness. SKIN: Intact. No rashes, lesions or breakdowns. NEUROLOGICAL EXAM: Alert and oriented times three. Decreased power in the right upper extremity and left lower extremity, which appears to be secondary to pain. Sensation appears to be intact. LABS AND IMAGING COMPLETED IN THE EMERGENCY DEPARTMENT: No labs were completed. CT of the lower extremity shows no fractures or dislocation. ASSESSMENT/PLAN: 1. Intractable pain status post fall. It is unclear if the patient is malingering or if there is actual pathology. The patient is unable to get an MRI because of two spinal stimulators which are incompatible with MRI. For now will do Percocet for pain control. Please get an orthopedic consult in the morning. The rest of his chronic medical conditions: 2. Hypertension. Continue amlodipine, atenolol. 3. Chronic pain syndrome. Continue Cymbalta and gabapentin. 4. Supportive deep vein thrombosis (DVT) prophylaxis. Heparin. 5. Gastrointestinal (GI) prophylaxis not indicated. Will get a set of basic labs, CBC, BMP, and coags.
[2018-11-08] MEDS: KETOROLAC 30 MG/ML VIAL (J1885) IV PRN (09:33)
--- NOTE | 2018-11-08 11:55 | CR ---
DATE OF CONSULTATION: 11/08/2018 ORTHOPEDIC SURGERY INPATIENT CONSULTATION NOTE REASON FOR CONSULTATION: Left hip pain. CONSULTING PHYSICIAN: Dr. Monica Lopez. CHIEF COMPLAINT: Left hip pain. HISTORY OF PRESENT ILLNESS: José Miguel Vasquez is a 47-year-old morbidly obese male who sustained a mechanical fall from standing height directly onto his left hip yesterday resulting in difficulty bearing weight and intractable hip pain. The patient has a significant past medical history of chronic back pain for which he has had dorsal column stimulator placement, which has had to be revised in the past and multiple prior knee arthroscopies and upper extremity open reduction internal fixation (ORIF) that was complicated by reflex sympathetic dystrophy (RSD). He presents today because he had severe pain, difficulty bearing weight. He was admitted to the hospitalist service for pain control. The patient reports today that he localizes pain to the left hip. He states he is unable to move the left lower extremity voluntarily. He denied any antecedent chest pain, headache, dizziness, shortness of breath or other constitutional symptoms prior to his fall, but states that he felt weak in his bilateral lower extremities prior to his falling. He normally ambulates at home with no assistive devices. PAST MEDICAL HISTORY: Significant for hypertension, chronic regional pain syndrome, chronic low back pain. Patient also has hypertension and depression. MEDICATIONS: Amlodipine, atenolol, Colace, Cymbalta, Lasix, gabapentin, hydroxyzine and metoprolol. ALLERGIES: BUSPIRONE, CHLORTHALIDONE, IBUPROFEN, LISINOPRIL. PAST SURGICAL HISTORY: Significant for multiple discectomies and laminectomies in the thoracic and lumbar spine followed by dorsal column stimulator placement, which had to be revised. Bilateral knee arthroscopies per HPI and a right forearm ORIF complicated by complex regional pain syndrome. FAMILY HISTORY: Noncontributory. SOCIAL HISTORY: The patient is a one pack per day smoker. Denies alcohol or illicit drug use. Does not work. REVIEW OF SYSTEMS: A 14-point review of systems was reviewed, significant for bilateral lower extremity weakness, per history of the present illness, neurologic symptoms in his right upper extremity, otherwise unremarkable. PHYSICAL EXAMINATION: Vital signs: Temperature 98.5, heart rate 62, blood pressure 135/83, respiratory rate 20, pulse oximetry 95% on room air. General: This is a morbidly obese male, appears older than stated age, in no acute distress. Neurologic: He is awake, alert and oriented to person, place and time. He has grossly intact sensory and motor function in his bilateral lower extremity femoral, tibial, sural, saphenous, superficial, peroneal, deep peroneal nerve distributions. Cardiovascular: The patient has 2+ dorsalis pedis (DP) and posterior tibial (PT) pulses and brisk capillary refill all digits of the left lower extremity. Musculoskeletal: Focused physical exam of the left lower extremity demonstrates no open wounds or abrasions. There is mild pain with log roll. He is nontender about the lateral anterior or posterior hip. He is nontender along the length of his femur, knee, leg or ankle. He has 5/5 motor strength with ankle plantar flexion, dorsiflexion, inversion and eversion. He does have some decreased sensation about the plantar aspect of the foot, which the patient states is at his baseline. He has no other abnormalities. No pain with passive range of motion of his knee. RADIOGRAPHS: Plain radiographs of the left hip and pelvis demonstrate no acute osseous abnormality. There are mild degenerative changes about the left hip on x-ray. Labs: WBC 12.7 11/08, 9.0 11/09. ESR 24, CRP 1.87 CT scan of the pelvis and left hip demonstrates no evidence of fracture or dislocation. No evidence of hip joint effusion. ASSESSMENT: This is a 47-year-old male with significant comorbidities as above with acute pain after a fall directly onto his hip. Differential includes hip contusion, occult hip fracture. [place] septic hip arthritis unlikely given mechanism of fall, no hip effusion with normal ESR and downtrending WBC. Mildly elevated CRP more likely from low level systemic inflammation given his comorbidities. PLAN: Given the patient's negative x-rays and CT scan, it is unlikely that he has an occult hip fracture. However, the only way to definitively rule out nondisplaced proximal femur fracture would be to obtain MRI; however, MRI is contraindicated in the setting of present dorsal column stimulator. Therefore, the patient will be managed conservatively with pain control per the hospitalist, and we will monitor him closely. At this point, no further imaging or workup is necessary and recommend pain control and daily physical therapy. The patient may be weightbearing as tolerated, and I recommend ambulation with a walker given his fall history. We will continue to monitor the patient while he is in house. Recommend repeat CRP in 24-48 hours to identify trend. If increasing with increasing hip pain, may have to consider IR guided hip aspiration to rule out septic arthritis. MTDD
[2018-11-08] MEDS: traMADol 50 MG TAB PO PRN (12:52)
[2018-11-08 14:00] VITALS: BP 136/78
--- NOTE | 2018-11-08 21:32 | IPN ---
DATE: 11/08/2018 Patient admitted overnight for fall, intractable left hip pain. Currently still reports significant left hip pain. As per patient, was 10/10. Denies any chest pain, pressure, or discomfort. Denies any shortness of breath. Denies any numbness, paresthesia, bowel or urinary incontinence. VITAL SIGNS: Temperature 97.7, pulse 63, respirations 19, blood pressure 136/78, pulse oximetry 90% on room air. LABORATORY DATA: WBC 12.7, hemoglobin and hematocrit 14.5/43.3, platelets 268. Chemistry: Sodium 137, potassium 4, chloride 103, bicarbonate 26, BUN 11, creatinine 0.97. PHYSICAL EXAMINATION: GENERAL: Patient alert, comfortable in no acute distress. HEENT: Normocephalic, atraumatic. NECK: Supple. CARDIAC: Regular, S1, S2. PULMONARY: Bilaterally clear. Patient has morbidly obese. ABDOMEN: Soft, nontender. Positive bowel sounds. EXTREMITIES: No edema, bilateral lower extremities. Left lower extremity hip joint seems to be weaker. Exam limited significant to pain. Sensation to light touch intact. ASSESSMENT AND PLAN: This is a 47-year-old gentleman with past medical history of hypertension, chronic regional pain syndrome in the right upper extremity, chronic low back pain status post multiple thoracic and lumbar surgeries with two nerve dorsal column stimulators, discectomy, laminectomy, who presented to the emergency room after patient's leg gave out and subsequently fell without any loss of consciousness with significant left hip pain. 1. Intractable left hip pain status post fall. Unclear if patient with malingering or if true pathology. Unable to get MRI given patient has nerve stimulator. Encourage physical therapy. Pain medication as prescribed. Orthopedics on consult. CT scan of the hip shows no fracture. 2. Hypertension. Continue atenolol, Norvasc. 3. Chronic regional pain syndrome. Continue current medication. Cymbalta, gabapentin. 4. Chronic back pain. Patient has two dorsal column stimulators. 5. Deep vein thrombosis (DVT) prophylaxis. Heparin subcutaneous. DISPOSITION: Pending pain control, physical therapy.
[2018-11-08 22:00] VITALS: BP 136/73
[2018-11-09] MEDS: traMADol 50 MG TAB PO PRN ×3 (03:05→17:01)
[2018-11-09] MEDS: KETOROLAC 30 MG/ML VIAL (J1885) IV PRN (03:37)
[2018-11-09] MEDS: HEPARIN SOD (PORCINE) 5000 UNITS/ML VIAL SC SCH ×3 (05:26→21:04)
[2018-11-09 06:00] VITALS: BP 130/85
[2018-11-09] MEDS: PERCOCET 5MG/325MG TAB PO PRN ×3 (06:26→21:04)
[2018-11-09 06:41] LABS: HEMATOCRIT 43.3 % (42.0-52.0); HEMOGLOBIN 14.1 g/dl (13.5-17.5); MEAN CORPUSCULAR HEMOGLOBIN 28.1 pg (27.0-33.0); MEAN CORPUSCULAR HGB CONC 32.6 g/dl (32.0-36.5); MEAN CORPUSCULAR VOLUME 86.4 fl (80.0-96.0); PLATELET COUNT, AUTOMATED 239 10^3/uL (150-450); RED BLOOD COUNT 5.01 10^6/uL (4.30-6.10)
[2018-11-09 07:13] LABS: BLOOD UREA NITROGEN 22 MG/DL (7-18); CALCIUM LEVEL 7.9 MG/DL (8.5-10.1); CARBON DIOXIDE LEVEL 28 MEQ/L (21-32); CHLORIDE LEVEL 105 MEQ/L (98-107); CREATININE FOR GFR 1.17 MG/DL (0.70-1.30); GLOMERULAR FILTRATION RATE > 60.0 (>60); GLUCOSE, FASTING 90 MG/DL (70-100); MAGNESIUM LEVEL 2.2 MG/DL (1.8-2.4); SODIUM LEVEL 139 MEQ/L (136-145)
[2018-11-09] MEDS: DULoxetine 30 MG CAP (CYMBALTA) PO SCH ×2 (08:30→21:03)
[2018-11-09] MEDS: GABAPENTIN 300 MG CAP PO SCH ×2 (08:30→21:03)
[2018-11-09] MEDS: METOPROLOL SUCC (TopROL XL) 100MG *XL* TAB PO SCH (08:30)
[2018-11-09] MEDS: amLODIPine 5 MG TAB PO SCH (08:31)
[2018-11-09] MEDS: hydrOXYzine 25 MG TAB PO PRN ×2 (09:39→17:00)
[2018-11-09] MEDS: SENOKOT S TAB PO SCH ×2 (12:25→21:03)
[2018-11-09] MEDS: HYDROMORPHONE HCL 0.5 MG/ 0.5 ML SYRINGE (J1170 PER 1) IV PRN ×4 (12:26→22:32)
[2018-11-09 14:00] VITALS: BP 126/83
--- NOTE | 2018-11-09 17:38 | IPNPDOC ---
Text Note Date of Service The patient was seen on 11/09/18. NOTE reported intractable left hip pain persisted with movement. Refused PT. . Denies any chest pain, pressure, or discomfort. Denies any shortness of breath. Denies any numbness, paresthesia, bowel or urinary incontinence. PHYSICAL EXAMINATION: GENERAL: Patient alert, comfortable in no acute distress. HEENT: Normocephalic, atraumatic. NECK: Supple. CARDIAC: Regular, S1, S2. PULMONARY: Bilaterally clear. Patient has morbidly obese. ABDOMEN: Soft, nontender. Positive bowel sounds. EXTREMITIES: No edema, bilateral lower extremities. Left lower extremity hip joint seems to be weaker. Exam limited significant to pain. Sensation to light touch intact. ASSESSMENT AND PLAN: This is a 47-year-old gentleman with past medical history of hypertension, chronic regional pain syndrome in the right upper extremity, chronic low back pain status post multiple thoracic and lumbar surgeries with two nerve dorsal column stimulators, discectomy, laminectomy, who presented to the emergency room after patient's leg gave out and subsequently fell without any loss of consciousness with significant left hip pain. 1. Intractable left hip pain status post fall. Unclear if patient with malingering or if true pathology. Unable to get MRI given patient has nerve stimulator. Encourage physical therapy. Pain medication as prescribed. Orthopedics on consult. CT scan of the hip shows no fracture. Will consult pain management on Saturday, Pain medication as prescribed 2. Hypertension. Continue atenolol, Norvasc. 3. Chronic regional pain syndrome. Continue current medication. Cymbalta, gabapentin. 4. Chronic back pain. Patient has two dorsal column stimulators. 5. Deep vein thrombosis (DVT) prophylaxis. Heparin subcutaneous. DISPOSITION: Pending pain control, physical therapy. consult pain management on Saturday. NPO after MN for possible procedure with pain management VS,Fishbone, I+O VS, Fishbone, I+O Laboratory Tests 11/09/18 06:22 Red Blood Count 5.01, Mean Corpuscular Volume 86.4, Mean Corpuscular Hemoglobin 28.1, Mean Corpuscular Hemoglobin Concent 32.6, Red Cell Distribution Width 13.5, Calcium Level 7.9 L Vital Signs Date Time Temp Pulse Resp B/P (MAP) Pulse Ox O2 Delivery O2 Flow Rate FiO2 11/09/18 17:01 18 11/09/18 14:00 97.8 68 126/83 (97) 68 11/08/18 01:25 Room Air I&O- Last 24 Hours up to 6 AM 11/09/18 06:00 Intake Total 1320 ml Output Total 400 ml Balance 920 ml RADHAMES RANKIN MD Nov 09, 2018 17:38
[2018-11-09 22:00] VITALS: BP 151/86
[2018-11-10] MEDS: PERCOCET 5MG/325MG TAB PO PRN ×3 (01:10→17:47)
[2018-11-10] MEDS: hydrOXYzine 25 MG TAB PO PRN ×3 (01:10→22:04)
[2018-11-10] MEDS: HYDROMORPHONE HCL 0.5 MG/ 0.5 ML SYRINGE (J1170 PER 1) IV PRN ×7 (01:48→22:05)
[2018-11-10] MEDS: traMADol 50 MG TAB PO PRN ×2 (03:53→14:03)
[2018-11-10] MEDS: HEPARIN SOD (PORCINE) 5000 UNITS/ML VIAL SC SCH ×3 (05:23→22:03)
[2018-11-10 06:00] VITALS: BP 130/79
[2018-11-10 06:36] LABS: HEMATOCRIT 44.5 % (42.0-52.0); HEMOGLOBIN 14.4 g/dl (13.5-17.5); MEAN CORPUSCULAR HEMOGLOBIN 28.3 pg (27.0-33.0); MEAN CORPUSCULAR HGB CONC 32.4 g/dl (32.0-36.5); MEAN CORPUSCULAR VOLUME 87.6 fl (80.0-96.0); PLATELET COUNT, AUTOMATED 249 10^3/uL (150-450); RED BLOOD COUNT 5.08 10^6/uL (4.30-6.10); WHITE BLOOD COUNT 8.8 10^3/uL (4.0-10.0)
[2018-11-10 06:58] LABS: BLOOD UREA NITROGEN 14 MG/DL (7-18); CALCIUM LEVEL 8.3 MG/DL (8.5-10.1); CARBON DIOXIDE LEVEL 27 MEQ/L (21-32); CHLORIDE LEVEL 104 MEQ/L (98-107); CREATININE FOR GFR 1.06 MG/DL (0.70-1.30); GLOMERULAR FILTRATION RATE > 60.0 (>60); GLUCOSE, FASTING 79 MG/DL (70-100); MAGNESIUM LEVEL 2.1 MG/DL (1.8-2.4); POTASSIUM SERUM 3.9 MEQ/L (3.5-5.1); SODIUM LEVEL 137 MEQ/L (136-145)
[2018-11-10] MEDS: DULoxetine 30 MG CAP (CYMBALTA) PO SCH ×2 (08:29→22:03)
[2018-11-10] MEDS: SENOKOT S TAB PO SCH ×2 (08:29→22:04)
[2018-11-10] MEDS: METOPROLOL SUCC (TopROL XL) 100MG *XL* TAB PO SCH (08:29)
[2018-11-10] MEDS: GABAPENTIN 300 MG CAP PO SCH ×2 (08:30→22:03)
[2018-11-10] MEDS: amLODIPine 5 MG TAB PO SCH (08:30)
[2018-11-10 10:00] VITALS: BP 128/72
[2018-11-10 14:00] VITALS: BP 136/83
[2018-11-10] MEDS ORDERED: PERCOCET 5MG/325MG TAB PO PRN (16:30)
[2018-11-10] MEDS ORDERED: KETOROLAC 30 MG/ML VIAL (J1885) IV SCH (16:30)
[2018-11-10] MEDS ORDERED: KETOROLAC 30 MG/ML VIAL (J1885) IV PRN (16:45)
--- NOTE | 2018-11-10 16:56 | IPNPDOC ---
Date Seen The patient was seen on 11/10/18. Progress Note SUBJECTIVE: Patient is a 47-year-old gentleman admitted for intractable left hip pain status post fall. She was seen and examined this morning he was not happy with his care for he states that he is in significant amount of pain and would like to have stronger pain medication. He has been nothing by mouth since midnight for he states that he is supposed to get a injection from Dr. August. After talking to pain management that they said that Dr. August is out of the office today and will return tomorrow. I conveyed this message to the patient and said that the nurse practitioner will see him later today for further pain recommendation. The patient continued to be agitated by my answer but understood that he will have to wait till later this afternoon until he was evaluated by the pain nurse practitioner. He is also complaining that he was unable to sleep because of the pain. No other overnight events were reported by nursing. OBJECTIVE PHYSICAL EXAMINATION: VITAL SIGNS: Please see below. GENERAL: 47-year-old male, appears uncomfortable, slightly in distress HEENT: Atraumatic normocephalic no JVD Supple no lymphadenopathy CARDIOVASCULAR: Normal S1-S2 sounds no audible murmurs rubs or gallops RESPIRATORY: Morbidly obese difficult to hear lung sounds because of body habitus but no audible rhonchi, Rales or wheezing noted ABDOMINAL: Obese abdomen soft nontender positive bowel sounds. Reproducible inguinal hernia on the left with cough EXTREMITIES: No lower extremity edema. Left joint hip pain tender to touch (unchanged) GENITOURINARY: No swollen testicle slightly erythematous nontender no increased warmth. LABORATORY DATA, IMAGING STUDIES, MICROBIOLOGY: Please see below. DVT prophylaxis ordered?: Yes heparin subcutaneous ASSESSMENT AND PLAN: This is a 47-year-old gentleman with past medical history of hypertension, chronic regional pain syndrome in the right upper extremity, chronic low back pain status post multiple thoracic and lumbar surgeries with two nerve dorsal column stimulators, discectomy, laminectomy, who presented to the emergency room after patient's leg gave out and subsequently fell without any loss of consciousness with significant left hip pain. PROBLEMS: Intractable left hip pain s/p fall. -questionable malingering vs true pathology -CT scan of the hip shows no fracture. -Unable to get MRI given patient has nerve stimulator. -Encourage physical therapy but patient refuse. -Pain Management consulted: Appreciate recommendations -Orthopedics Consulted, Ortho team recommended trending CRP, if elevated to consider septic arthritis -Patient physical examine and vitals are not consistent with pain described by patient. CT does not show any drainage effusion or fluid collection Hypertension -c/w atenolol, Norvasc. Chronic regional pain syndrome -Continue with home Cymbalta and gabapentin -Pain management consulted appreciate their further recommendations Chronic back pain -two dorsal column stimulators DVT prophylaxis - Heparin subcutaneous. VS, I&O, 24H, Fishbone Vital Signs/I&O Vital Signs Date Time Temp Pulse Resp B/P (MAP) Pulse Ox O2 Delivery O2 Flow Rate FiO2 11/10/18 15:08 18 11/10/18 14:00 97.7 62 136/83 (100) 92 11/08/18 01:25 Room Air I&O- Last 24 Hours up to 6 AM 11/10/18 06:00 Intake Total 1080 ml Output Total 1050 ml Balance 30 ml Laboratory Data 24H LABS Laboratory Tests 2 11/10/18 06:07: Nucleated Red Blood Cells % (auto) 0.0, Anion Gap 6L, Glomerular Filtration Rate > 60.0, Blood Urea Nitrogen 14, Creatinine 1.06, Sodium Level 137, Potassium Level 3.9, Chloride Level 104, Carbon Dioxide Level 27, Calcium Level 8.3L, Magnesium Level 2.1 CBC/BMP Laboratory Tests 11/10/18 06:07 Red Blood Count 5.08, Mean Corpuscular Volume 87.6, Mean Corpuscular Hemoglobin 28.3, Mean Corpuscular Hemoglobin Concent 32.4, Red Cell Distribution Width 13.1, Calcium Level 8.3 L GME ATTESTATION GME ATTESTATION My faculty preceptor for this patient encounter was physically present during the encounter and was fully available. All aspects of the patient interview, examination, medical decision making process, and medical care plan development were reviewed and approved by the faculty preceptor. The faculty preceptor is aware and concurs with the plan as stated in the body of this note and will attest to such by his/her cosignature. ATTENDING NOTE I have both independently examined this patient as well as reviewed the note. I have discussed in detail with the resident the findings and plan of treatment as documented in the residents note. MENDOZA Pimentel MD, DO, Apr 1, 2019 16:56 RADHAMES RANKIN MD Nov 11, 2018 18:01
[2018-11-10] MEDS: CARISOPRODOL 350 MG TAB PO PRN (17:47)
[2018-11-10 18:00] VITALS: BP 113/72
[2018-11-10 22:00] VITALS: BP 139/91
[2018-11-11 02:00] VITALS: BP 122/76
[2018-11-11] MEDS: CARISOPRODOL 350 MG TAB PO PRN ×3 (02:24→22:16)
[2018-11-11] MEDS: HYDROMORPHONE HCL 0.5 MG/ 0.5 ML SYRINGE (J1170 PER 1) IV PRN ×8 (02:25→22:17)
[2018-11-11] MEDS: hydrOXYzine 25 MG TAB PO PRN ×3 (05:47→18:57)
[2018-11-11] MEDS: HEPARIN SOD (PORCINE) 5000 UNITS/ML VIAL SC SCH ×3 (05:47→22:17)
[2018-11-11 06:00] VITALS: BP 130/81
[2018-11-11 07:21] LABS: HEMATOCRIT 44.5 % (42.0-52.0); HEMOGLOBIN 14.9 g/dl (13.5-17.5); MEAN CORPUSCULAR HEMOGLOBIN 28.4 pg (27.0-33.0); MEAN CORPUSCULAR HGB CONC 33.5 g/dl (32.0-36.5); MEAN CORPUSCULAR VOLUME 84.9 fl (80.0-96.0); PLATELET COUNT, AUTOMATED 248 10^3/uL (150-450); RED BLOOD COUNT 5.24 10^6/uL (4.30-6.10); WHITE BLOOD COUNT 10.3 10^3/uL (4.0-10.0)
[2018-11-11 07:45] LABS: BLOOD UREA NITROGEN 14 MG/DL (7-18); C REACTIVE PROTEIN QUANTITATIV 2.58 MG/DL (0.00-0.30); CALCIUM LEVEL 8.4 MG/DL (8.5-10.1); CARBON DIOXIDE LEVEL 26 MEQ/L (21-32); CHLORIDE LEVEL 105 MEQ/L (98-107); CREATININE FOR GFR 0.95 MG/DL (0.70-1.30); GLOMERULAR FILTRATION RATE > 60.0 (>60); GLUCOSE, FASTING 96 MG/DL (70-100); MAGNESIUM LEVEL 2.1 MG/DL (1.8-2.4); POTASSIUM SERUM 4.2 MEQ/L (3.5-5.1); SODIUM LEVEL 135 MEQ/L (136-145)
[2018-11-11] MEDS: GABAPENTIN 300 MG CAP PO SCH ×3 (09:34→22:18)
[2018-11-11] MEDS: METOPROLOL SUCC (TopROL XL) 100MG *XL* TAB PO SCH (09:34)
[2018-11-11] MEDS: SENOKOT S TAB PO SCH ×2 (09:34→22:17)
[2018-11-11] MEDS: amLODIPine 5 MG TAB PO SCH (09:35)
[2018-11-11] MEDS: PERCOCET 5MG/325MG TAB PO PRN ×2 (09:35→15:28)
[2018-11-11] MEDS: DULoxetine 30 MG CAP (CYMBALTA) PO SCH ×2 (09:35→22:17)
--- NOTE | 2018-11-11 09:40 | CR ---
DATE OF CONSULTATION: 11/10/2018 This patient was referred to Pain Management from Dr. Dillard, Attending Physician on . This gentleman is a 47-year-old male admitted on 11/08/2018 after a fall at home. He fell onto his left hip. He is now complaining of acute left hip pain that radiates around to the left groin. On admission, he had a CT scan of his hip which showed no fracture. PAST MEDICAL HISTORY: He has a history of hypertension, chronic regional pain syndrome. He has had previous a laminectomy and discectomy. He is a known patient to Pain Management at [facility]. MEDICATIONS: Currently, he is on several medications. One of them gabapentin 600 mg twice a day and Cymbalta 60 mg twice a day. He is also taking Tramadol 50 mg every 6 hours as needed for pain and has been given Percocet one tablet every 4 hours for pain. He also takes IV Dilaudid 0.5 mg three hourly. This gentleman on examination is very distressed. He says his pain is a 10/10. Currently, he is unable to move his left leg and left knee and left hip. RECOMMENDATION: I would like to recommend increasing his gabapentin to 600 mg three times a day and also include Soma 350 mg tablets one every 8 hours as needed for pain an spasms. I have discussed this case with Dr. August and we will be reviewing his pain relief tomorrow after speaking with his medical team. Please feel free to contact me for further information. HARLE[facility] VALLEY STATE HOSPITALAshutosh
[2018-11-11 09:48] LABS: ERYTHROCYTE SEDIMENTATION RATE 33 mm/hr (0-15)
[2018-11-11 14:00] VITALS: BP 125/81
--- NOTE | 2018-11-11 16:19 | CR ---
DATE OF CONSULTATION: 11/11/2018 This is a 47-year-old male admitted on 11/08/18 after falling at home. This gentleman fell on his left hip. He was seen in the emergency room on the same day. CT scan of the left hip was taken. No fracture of the hip was noted. He has a history of hypertension, chronic regional pain syndrome, laminectomy and discectomy of the lumbar spine int he past. He currently takes gabapentin 600 mg twice a day and Cymbalta. He has a dorsal column stimulator in situ. This gentleman is complaining of severe pain int he left hip. On examination on the November 10, his vital signs were stable. He was distressed, complaining of pain, 10 out of 10. His heart and lungs were clear. I would like to recommend increasing this gentleman's gabapentin to three times a day so that it is 600 mg three times a day and also adding Soma 350 mg one tablet every 8 hours as needed for pain and spasms. Please feel free to contact me for further information. MTDD
--- NOTE | 2018-11-11 17:08 | IPNPDOC ---
Date Seen The patient was seen on 11/11/18. Progress Note SUBJECTIVE: Patient is a 47-year-old gentleman admitted for intractable left hip pain status post fall. Was seen and examined this morning and he continues not to be happy. Was evaluated by pain management nurse practitioner yesterday who made adjustments to his pain regiment. States that around 3 AM this morning he got about a couple hours of sleep which is the most is constant since she's been admitted. He states that the pain is still pretty significant and would like to have some stronger meds. He is agreeable to take a shower this morning but that's about it. He states that he does not have an appetite to eat but he is "nibbling on some of his food." He has no other complaints today. No overnight events reported. OBJECTIVE PHYSICAL EXAMINATION: VITAL SIGNS: Please see below. GENERAL: 47-year-old male, appears uncomfortable, slightly in distress HEENT: Atraumatic normocephalic no JVD Supple no lymphadenopathy CARDIOVASCULAR: Normal S1-S2 sounds no audible murmurs rubs or gallops RESPIRATORY: Morbidly obese difficult to hear lung sounds because of body habitus but no audible rhonchi, Rales or wheezing noted ABDOMINAL: Obese abdomen soft nontender positive bowel sounds. Reproducible inguinal hernia on the left with cough EXTREMITIES: No lower extremity edema. Left joint hip pain tender to touch (unchanged) GENITOURINARY: No swollen testicle slightly erythematous nontender no increased warmth. LABORATORY DATA, IMAGING STUDIES, MICROBIOLOGY: Please see below. DVT prophylaxis ordered?: Yes heparin subcutaneous ASSESSMENT AND PLAN: This is a 47-year-old gentleman with past medical history of hypertension, chronic regional pain syndrome in the right upper extremity, chronic low back pain status post multiple thoracic and lumbar surgeries with two nerve dorsal column stimulators, discectomy, laminectomy, who presented to the emergency room after patient's leg gave out and subsequently fell without any loss of consciousness with significant left hip pain. PROBLEMS: Intractable left hip pain s/p fall. -questionable malingering vs true pathology -CT scan of the hip shows no fracture. -Unable to get MRI given patient has nerve stimulator. -Encourage physical therapy but patient refuse. -Pain Management consulted: Will refer all pain recommendation to them. -Orthopedics Consulted Hypertension -c/w atenolol, Norvasc. Chronic regional pain syndrome -Continue with home Cymbalta and gabapentin -Pain management is following the patient will refer to them for pain management Chronic back pain -two dorsal column stimulators DVT prophylaxis - Heparin subcutaneous. VS, I&O, 24H, Fishbone Vital Signs/I&O Vital Signs Date Time Temp Pulse Resp B/P (MAP) Pulse Ox O2 Delivery O2 Flow Rate FiO2 11/11/18 15:37 18 11/11/18 14:00 97.7 68 125/81 (96) 96 11/08/18 01:25 Room Air I&O- Last 24 Hours up to 6 AM 11/11/18 06:00 Intake Total 1680 ml Output Total 3000 ml Balance -1320 ml Laboratory Data 24H LABS Laboratory Tests 2 11/11/18 06:48: Nucleated Red Blood Cells % (auto) 0.0, Erythrocyte Sedimentation Rate 33H, Anion Gap 4L, Glomerular Filtration Rate > 60.0, Blood Urea Nitrogen 14, Creatinine 0.95, Sodium Level 135L, Potassium Level 4.2, Chloride Level 105, Carbon Dioxide Level 26, Calcium Level 8.4L, Magnesium Level 2.1, C-Reactive Protein, Quantitative 2.58H CBC/BMP Laboratory Tests 11/11/18 06:48 Red Blood Count 5.24, Mean Corpuscular Volume 84.9, Mean Corpuscular Hemoglobin 28.4, Mean Corpuscular Hemoglobin Concent 33.5, Red Cell Distribution Width 13.2, Calcium Level 8.4 L GME ATTESTATION GME ATTESTATION My faculty preceptor for this patient encounter was physically present during the encounter and was fully available. All aspects of the patient interview, ex amination, medical decision making process, and medical care plan development were reviewed and approved by the faculty preceptor. The faculty preceptor is aware and concurs with the plan as stated in the body of this note and will attest to such by his/her cosignature. MENDOZA POWELL DO Nov 11, 2018 17:08
[2018-11-11 22:00] VITALS: BP 130/83
[2018-11-12] MEDS: HYDROMORPHONE HCL 0.5 MG/ 0.5 ML SYRINGE (J1170 PER 1) IV PRN ×7 (01:36→22:22)
[2018-11-12] MEDS: hydrOXYzine 25 MG TAB PO PRN ×3 (01:36→17:09)
[2018-11-12] MEDS: PERCOCET 5MG/325MG TAB PO PRN ×3 (04:54→17:09)
[2018-11-12] MEDS: HEPARIN SOD (PORCINE) 5000 UNITS/ML VIAL SC SCH ×3 (04:54→21:24)
[2018-11-12 06:00] VITALS: BP 159/96
[2018-11-12 07:16] LABS: HEMATOCRIT 42.7 % (42.0-52.0); HEMOGLOBIN 14.1 g/dl (13.5-17.5); MEAN CORPUSCULAR VOLUME 84.9 fl (80.0-96.0); PLATELET COUNT, AUTOMATED 249 10^3/uL (150-450); RED BLOOD COUNT 5.03 10^6/uL (4.30-6.10); WHITE BLOOD COUNT 9.5 10^3/uL (4.0-10.0)
[2018-11-12 07:31] LABS: BLOOD UREA NITROGEN 16 MG/DL (7-18); CALCIUM LEVEL 8.4 MG/DL (8.5-10.1); CARBON DIOXIDE LEVEL 26 MEQ/L (21-32); CHLORIDE LEVEL 103 MEQ/L (98-107); CREATININE FOR GFR 1.05 MG/DL (0.70-1.30); GLOMERULAR FILTRATION RATE > 60.0 (>60); GLUCOSE, FASTING 111 MG/DL (70-100); MAGNESIUM LEVEL 1.9 MG/DL (1.8-2.4); SODIUM LEVEL 134 MEQ/L (136-145)
[2018-11-12] MEDS: CARISOPRODOL 350 MG TAB PO PRN ×2 (08:11→16:07)
[2018-11-12] MEDS: SENOKOT S TAB PO SCH ×2 (08:11→21:24)
[2018-11-12] MEDS: DULoxetine 30 MG CAP (CYMBALTA) PO SCH ×2 (08:11→21:25)
[2018-11-12] MEDS: METOPROLOL SUCC (TopROL XL) 100MG *XL* TAB PO SCH (08:11)
[2018-11-12] MEDS: GABAPENTIN 300 MG CAP PO SCH ×3 (08:11→21:25)
[2018-11-12] MEDS: amLODIPine 5 MG TAB PO SCH (08:12)
--- NOTE | 2018-11-12 12:17 | IPNPDOC ---
Date Seen The patient was seen on 11/12/18. Progress Note SUBJECTIVE: Patient is a 47-year-old gentleman admitted for intractable left hip pain status post fall. Was seen and examined this morning and he continues not to be happy. He would like pain management to come adjustments on his pain management and if Dr. Funes can come to evaluate him if he is in office today. He has no other complaints today. He had a bed bath and ate his dinner with no problem. Continues to complain of chronic pain. Denies n/v/d. Has not had a bowEl movement since admission. OBJECTIVE PHYSICAL EXAMINATION: VITAL SIGNS: Please see below. GENERAL: 47-year-old male, appears uncomfortable, slightly in distress HEENT: Atraumatic normocephalic no JVD Supple no lymphadenopathy CARDIOVASCULAR: Normal S1-S2 sounds no audible murmurs rubs or gallops RESPIRATORY: Morbidly obese difficult to hear lung sounds because of body habitus but no audible rhonchi, Rales or wheezing noted ABDOMINAL: Obese abdomen soft nontender positive bowel sounds. Reproducible ing uinal hernia on the left with cough EXTREMITIES: No lower extremity edema. Left joint hip pain tender to touch (unchanged) LABORATORY DATA, IMAGING STUDIES, MICROBIOLOGY: Please see below. DVT prophylaxis ordered?: Yes heparin subcutaneous ASSESSMENT AND PLAN: This is a 47-year-old gentleman with past medical history of hypertension, chronic regional pain syndrome in the right upper extremity, chronic low back pain status post multiple thoracic and lumbar surgeries with two nerve dorsal column stimulators, discectomy, laminectomy, who presented to the emergency room after patient's leg gave out and subsequently fell without any loss of consciousness with significant left hip pain. PROBLEMS: Intractable left hip pain s/p fall. -questionable malingering vs true pathology -CT scan of the hip shows no fracture. -Unable to get MRI given patient has nerve stimulator. -Encourage physical therapy but patient refuse. -Pain Management consulted: Will refer all pain recommendation to them. -Orthopedics Consulted Hypertension -c/w atenolol, Norvasc. Chronic regional pain syndrome -Continue with home Cymbalta and gabapentin -Pain management is following the patient will refer to them for pain management Chronic back pain -two dorsal column stimulators Constipation -Likely opioid induced. -c/w Colace and Senokot S. -Supplement with Mag Citrate x1 today. DVT prophylaxis - Heparin subcutaneous. VS, I&O, 24H, Fishbone Vital Signs/I&O Vital Signs Date Time Temp Pulse Resp B/P (MAP) Pulse Ox O2 Delivery O2 Flow Rate FiO2 11/12/18 11:42 18 11/12/18 08:12 90 159/96 11/12/18 06:00 98.0 98 11/08/18 01:25 Room Air I&O- Last 24 Hours up to 6 AM 11/12/18 06:00 Intake Total 3720 ml Output Total 3250 ml Balance 470 ml Laboratory Data 24H LABS Laboratory Tests 2 11/12/18 06:24: Nucleated Red Blood Cells % (auto) 0.0, Anion Gap 5L, Glomerular Filtration Rate > 60.0, Blood Urea Nitrogen 16, Creatinine 1.05, Sodium Level 134L, Potassium Level 4.0, Chloride Level 103, Carbon Dioxide Level 26, Calcium Level 8.4L, Magnesium Level 1.9 CBC/BMP Laboratory Tests 11/12/18 06:24 Red Blood Count 5.03, Mean Corpuscular Volume 84.9, Mean Corpuscular Hemoglobin 28.0, Mean Corpuscular Hemoglobin Concent 33.0, Red Cell Distribution Width 13.1, Calcium Level 8.4 L GME ATTESTATION GME ATTESTATION My faculty preceptor for this patient encounter was physically present during the encounter and was fully available. All aspects of the patient interview, examination, medical decision making process, and medical care plan development were reviewed and approved by the faculty preceptor. The faculty preceptor is aware and concurs with the plan as stated in the body of this note and will attest to such by his/her cosignature. MENDOZA POWELL DO Nov 12, 2018 12:17
[2018-11-12] MEDS ORDERED: MAGNESIUM CITRATE 300 ML BTL PO ONE (13:00)
[2018-11-12 14:00] VITALS: BP 133/83
--- NOTE | 2018-11-12 17:45 | IPN ---
DATE: 11/12/2017 Patient is a 47-year-old gentleman admitted for intractable left hip pain status post fall. He is currently an inpatient on [facility] [place]. I reviewed the patient this afternoon in my capacity as a nurse practitioner (ELEMENTARY SUBSTITUTE TEACHER) in pain management. Patient continues to complain of severe left hip pain going across to his groin and testicle area. He says he is unable to stand and to move around and ambulate. On examination, patient's vital signs are stable. Generally, he appears slightly flushed and disheveled. His heart is without any murmurs. His lungs are clear without any rhonchi or rales. He has pain along the lateral hip and is unable to lift his leg. My suggestion would be for this gentleman to come to the pain management clinic for his scheduled caudal epidural that was already booked in advance. I spoke with Dr. August and he agrees with this plan. Please ensure patient is nothing by mouth after he has breakfast, no later than 8:00 a.m. in the morning and will require just a fluid diet after that. Please hold any anticoagulants until he is seen in pain management on 11/13/2018. Please feel free to contact me for further information. Kind regards, Leticia Turner, Nurse Practitioner Pain Management [facility]
[2018-11-12 22:00] VITALS: BP 125/79
[2018-11-13] MEDS: CARISOPRODOL 350 MG TAB PO PRN ×3 (01:48→18:54)
[2018-11-13] MEDS: HYDROMORPHONE HCL 0.5 MG/ 0.5 ML SYRINGE (J1170 PER 1) IV PRN ×6 (01:48→18:44)
[2018-11-13] MEDS: hydrOXYzine 25 MG TAB PO PRN ×3 (01:52→18:55)
[2018-11-13] MEDS: PERCOCET 5MG/325MG TAB PO PRN ×2 (05:43→20:58)
[2018-11-13 06:00] VITALS: BP 110/54
[2018-11-13 06:55] LABS: HEMATOCRIT 44.4 % (42.0-52.0); HEMOGLOBIN 14.7 g/dl (13.5-17.5); MEAN CORPUSCULAR HEMOGLOBIN 28.3 pg (27.0-33.0); MEAN CORPUSCULAR HGB CONC 33.1 g/dl (32.0-36.5); MEAN CORPUSCULAR VOLUME 85.4 fl (80.0-96.0); PLATELET COUNT, AUTOMATED 252 10^3/uL (150-450); WHITE BLOOD COUNT 9.8 10^3/uL (4.0-10.0)
[2018-11-13 07:25] LABS: BLOOD UREA NITROGEN 14 MG/DL (7-18); CALCIUM LEVEL 8.6 MG/DL (8.5-10.1); CARBON DIOXIDE LEVEL 26 MEQ/L (21-32); CHLORIDE LEVEL 104 MEQ/L (98-107); CREATININE FOR GFR 1.06 MG/DL (0.70-1.30); GLOMERULAR FILTRATION RATE > 60.0 (>60); GLUCOSE, FASTING 99 MG/DL (70-100); MAGNESIUM LEVEL 2.2 MG/DL (1.8-2.4); POTASSIUM SERUM 4.1 MEQ/L (3.5-5.1); SODIUM LEVEL 136 MEQ/L (136-145)
[2018-11-13 09:00] VITALS: BP 128/78
[2018-11-13] MEDS: METOPROLOL SUCC (TopROL XL) 100MG *XL* TAB PO SCH (09:30)
[2018-11-13] MEDS: GABAPENTIN 300 MG CAP PO SCH ×3 (09:33→20:59)
[2018-11-13] MEDS: amLODIPine 5 MG TAB PO SCH (09:33)
[2018-11-13] MEDS: SENOKOT S TAB PO SCH ×2 (09:33→20:58)
[2018-11-13] MEDS: DULoxetine 30 MG CAP (CYMBALTA) PO SCH ×2 (09:34→20:58)
[2018-11-13 14:00] VITALS: BP 128/80
--- NOTE | 2018-11-13 14:07 | IPNPDOC ---
Date Seen The patient was seen on 11/13/18. Progress Note SUBJECTIVE: Patient is a 47-year-old gentleman admitted for intractable left hip pain status post fall. Was informed me by nursing that the patient has been smoking his vape in his hospital room. When questioned about this this morning the patient denies that he smokes in his room but he did request if he can smoke medical marijuana, which he does have a card for. I iterated with the patient he is unable to smoke anything in his hospital room. He is currently nothing by mouth he'll be going down to get an epidural injection by pain management. No other adjustments have been made on his medications. He has no complaints this morning. No other overnight events were reported. OBJECTIVE PHYSICAL EXAMINATION: VITAL SIGNS: Please see below. GENERAL: 47-year-old male, appears uncomfortable, slightly in distress HEENT: Atraumatic normocephalic no JVD Supple no lymphadenopathy CARDIOVASCULAR: Normal S1-S2 sounds no audible murmurs rubs or gallops RESPIRATORY: Morbidly obese difficult to hear lung sounds because of body habitus but no audible rhonchi, Rales or wheezing noted ABDOMINAL: Obese abdomen soft nontender positive bowel sounds. Reproducible inguinal hernia on the left with cough EXTREMITIES: No lower extremity edema. Left joint hip pain tender to touch (unchanged) LABORATORY DATA, IMAGING STUDIES, MICROBIOLOGY: Please see below. DVT prophylaxis ordered?: Yes heparin subcutaneous ASSESSMENT AND PLAN: This is a 47-year-old gentleman with past medical history of hypertension, chronic regional pain syndrome in the right upper extremity, chronic low back pain status post multiple thoracic and lumbar surgeries with two nerve dorsal column stimulators, discectomy, laminectomy, who presented to the emergency room after patient's leg gave out and subsequently fell without any loss of consciousness with significant left hip pain. PROBLEMS: Intractable left hip pain s/p fall. -questionable malingering vs true pathology -CT scan of the hip shows no fracture. -Unable to get MRI given patient has nerve stimulator. -Encourage physical therapy but patient refuse. -Pain Management consulted: Will refer all pain recommendation to them. -Epidural injection on 11/16/2018 -Orthopedics Consulted Hypertension -c/w atenolol, Norvasc. Chronic regional pain syndrome -Continue with home Cymbalta and gabapentin -Pain management is following the patient will refer to them for pain management Chronic back pain -two dorsal column stimulators Constipation -Likely opioid induced. -c/w Colace and Senokot S. -Supplement with Mag Citrate x1 today. DVT prophylaxis - Heparin subcutaneous. VS, I&O, 24H, Fishbone Vital Signs/I&O Vital Signs Date Time Temp Pulse Resp B/P (MAP) Pulse Ox O2 Delivery O2 Flow Rate FiO2 11/13/18 10:55 14 11/13/18 10:40 68 130/70 11/13/18 09:00 97.5 97 11/08/18 01:25 Room Air I&O- Last 24 Hours up to 6 AM 11/13/18 05:59 Intake Total 2100 ml Output Total 2700 ml Balance -600 ml Laboratory Data 24H LABS Laboratory Tests 2 11/13/18 06:46: Nucleated Red Blood Cells % (auto) 0.0, Anion Gap 6L, Glomerular Filtration Rate > 60.0, Blood Urea Nitrogen 14, Creatinine 1.06, Sodium Level 136, Potassium Level 4.1, Chloride Level 104, Carbon Dioxide Level 26, Calcium Level 8.6, Magnesium Level 2.2 CBC/BMP Laboratory Tests 11/13/18 06:46 Red Blood Count 5.20, Mean Corpuscular Volume 85.4, Mean Corpuscular Hemoglobin 28.3, Mean Corpuscular Hemoglobin Concent 33.1, Red Cell Distribution Width 13.0, Calcium Level 8.6 GME ATTESTATION GME ATTESTATION My faculty preceptor for this patient encounter was physically present during the encounter and was fully available. All aspects of the patient interview, examination, medical decision making process, and medical care plan development were reviewed and approved by the faculty preceptor. The faculty preceptor is aware and concurs with the plan as stated in the body of this note and will attest to such by his/her cosignature. MENDOZA POWELL DO Nov 13, 2018 14:07
[2018-11-13] MEDS ORDERED: IBUPROFEN 800 MG TAB PO PRN (17:00)
--- NOTE | 2018-11-13 18:06 | REP ---
Clinical: Scrotal swelling. Technique: Real time patrick scale and color Doppler evaluation using linear high frequency transducer. Findings: The bilateral testicles and epididymi are relatively normal in contour, size, echogenicity, and vascularity without evidence for testicular mass lesion, infectious/inflammatory process, or torsion. Incidental right epididymal head cyst measures 3 mm diameter. Small nonspecific hydroceles noted. No varicoceles. Right testicle measures 4.9 x 2.5 x 3.1 cm. Left testicle measures 4.6 x 2.2 x 3.3 cm. Impression: Small nonspecific hydroceles and 3 mm right epididymal head cyst. Otherwise normal scrotal/testicular ultrasound. Electronically Signed by Andrey Prado MD 11/13/2018 05:58 P
[2018-11-13 18:53] LABS: C REACTIVE PROTEIN QUANTITATIV 3.32 MG/DL (0.00-0.30)
[2018-11-13 19:05] LABS: PROLACTIN 3.7 NG/ML (2.1-17.7)
[2018-11-13 22:00] VITALS: BP 132/62
[2018-11-13] MEDS ORDERED: HEPARIN SOD (PORCINE) 5000 UNITS/ML VIAL SC SCH (22:00)
--- NOTE | 2018-11-13 23:53 | IPN ---
DATE OF PROCEDURE: 11/13/2018 This is a note for the chart. A 47-year-old male patient with history of left hip pain. Patient described the pain as severe, aching, sore with a pain score of 10 over 10 over the left hip with radiation towards the left anterior tight area and the left testicle. Patient has been suffering of this for a week; he cannot walk. He cannot hold weight over the left leg. He denies fevers, chills. No changes in his urinary or bowel control. Patient has past medical history of back pain, complex regional pain syndrome over the right arm. Present medications include Dilaudid, morphine, Soma on an as-needed basis. CBC done on 11/12/2018 is showing a white blood cell count of 9.5. 11/11/2018 white blood cell count is 10.3. Sedimentation rate 11/11/2018 is 33. C-reactive protein 11/11/[address] of the left hip is showing no fractures. X-ray done on 11/07/2018 is showing a possible injury over the left femoral neck. Objective: Patient is alert oriented 3 and cooperative. He keeps his left leg slightly flexed, supported by a pillow. If I remove the pillow try to put the leg down patient reports severe pain over the left hip. Leg roll test with internal rotation and external rotation increase significantly the hip pain. There is mild tenderness over the left greater trochanter of the femur. Left testicle looks swelled and red. Patient reports severe left testicular pain. ASSESSMENT: Left hip pain, possible bursitis over the left hip. Possible inflammation or infection over the left testicle. History of back surgery. Chronic use of opioids. Complex regional pain syndrome over the right arm. PLAN: I discussed the patient's case with the primary care, Dr. Amos. I will like to discuss the case with the orthopedic service and radiologist to see if other studies could help in his case. Patient cannot do MRIs due to the dorsal column stimulator. I am considering doing a left hip injection. Dr. Amos is going to repeat some complete blood counts (CBCs), C-reactive protein, sedimentation rate to see if those numbers change. He is going to do an ultrasound of the scrotum to be sure that there is not infection there. I advised to increase the Soma to every 6 hours as needed for cramps and pain, four tablets per day maximum, and I also advised using some ibuprofen. Patient reports a past history of kidney problems after using a lot of ibuprofen but creatinine is normal right now, so for 1 day or 2 days using ibuprofen, I feel, will be acceptable. It is going to be as needed. I had a long conversation with Mr. Vasquez. My plan will be to consider doing an injection tomorrow. I will put the patient nothing by mouth after midnight and hold the blood thinners. Patient agrees. We will follow the patient. IMMANUEL
[2018-11-14] MEDS: HYDROMORPHONE HCL 0.5 MG/ 0.5 ML SYRINGE (J1170 PER 1) IV PRN ×7 (01:59→23:45)
[2018-11-14] MEDS: CARISOPRODOL 350 MG TAB PO PRN ×3 (04:32→22:31)
[2018-11-14] MEDS: hydrOXYzine 25 MG TAB PO PRN ×3 (04:39→22:31)
[2018-11-14 06:00] VITALS: BP 107/59
[2018-11-14 06:51] LABS: HEMATOCRIT 43.2 % (42.0-52.0); HEMOGLOBIN 14.4 g/dl (13.5-17.5); MEAN CORPUSCULAR HEMOGLOBIN 28.7 pg (27.0-33.0); MEAN CORPUSCULAR HGB CONC 33.3 g/dl (32.0-36.5); MEAN CORPUSCULAR VOLUME 86.2 fl (80.0-96.0); PLATELET COUNT, AUTOMATED 258 10^3/uL (150-450); RED BLOOD COUNT 5.01 10^6/uL (4.30-6.10); WHITE BLOOD COUNT 7.9 10^3/uL (4.0-10.0)
[2018-11-14 07:15] LABS: BLOOD UREA NITROGEN 22 MG/DL (7-18); CALCIUM LEVEL 8.4 MG/DL (8.5-10.1); CARBON DIOXIDE LEVEL 26 MEQ/L (21-32); CHLORIDE LEVEL 106 MEQ/L (98-107); CREATININE FOR GFR 0.94 MG/DL (0.70-1.30); GLOMERULAR FILTRATION RATE > 60.0 (>60); GLUCOSE, FASTING 86 MG/DL (70-100); MAGNESIUM LEVEL 2.2 MG/DL (1.8-2.4); POTASSIUM SERUM 4.1 MEQ/L (3.5-5.1); SODIUM LEVEL 137 MEQ/L (136-145)
--- NOTE | 2018-11-14 07:54 | IPNPDOC ---
Date Seen The patient was seen on 11/14/18. Progress Note SUBJECTIVE: Patient is a 47-year-old gentleman admitted for intractable left hip pain status post fall. Patient was seen and examined this morning. Earlier this morning with frequency and he is sleeping comfortably but did not appear in acute distress. Later in the morning though patient was having blood drawn today states that he still having left hip pain is pretty significant. He is unable to describe the pain really well at this is radiating towards his knees. He was evaluated by Dr. August day prior for possible epidural injection but was put on hold because of his significant amount of pain. Dr. August did recommend to have a further infectious workup including blood cultures, CBC, CRP and ESR and nuclear medicine study of the left hip. OBJECTIVE PHYSICAL EXAMINATION: VITAL SIGNS: Please see below. GENERAL: 47-year-old male, appears uncomfortable, slightly in distress HEENT: Atraumatic normocephalic no JVD Supple no lymphadenopathy CARDIOVASCULAR: Normal S1-S2 sounds no audible murmurs rubs or gallops RESPIRATORY: Morbidly obese difficult to hear lung sounds because of body habitus but no audible rhonchi, Rales or wheezing noted ABDOMINAL: Obese abdomen soft nontender positive bowel sounds. Reproducible inguinal hernia on the left with cough EXTREMITIES: No lower extremity edema. Left joint hip pain tender to touch (unchanged) LABORATORY DATA, IMAGING STUDIES, MICROBIOLOGY: Please see below. DVT prophylaxis ordered?: Yes heparin subcutaneous ASSESSMENT AND PLAN: This is a 47-year-old gentleman with past medical history of hypertension, chronic regional pain syndrome in the right upper extremity, chronic low back pain status post multiple thoracic and lumbar surgeries with two nerve dorsal column stimulators, discectomy, laminectomy, who presented to the emergency room after patient's leg gave out and subsequently fell without any loss of consciousness with significant left hip pain. PROBLEMS: Intractable left hip pain s/p fall. -questionable malingering vs true pathology -CT scan of the hip shows no fracture. -Unable to get MRI given patient has nerve stimulator. -Encourage physical therapy but patient refuse. -Pain Management consulted: Will refer all pain recommendation to them. -Repeat CBC, CRP and ESR -nuclear medicine study of the left hip today -if Infectious workup is negative, possible epidural on Saturday Hypertension -c/w atenolol, Norvasc. Chronic regional pain syndrome -Continue with home Cymbalta and gabapentin -Pain management is following the patient will refer to them for pain management Chronic back pain -two dorsal column stimulators Constipation -Likely opioid induced. -c/w Colace and Senokot S. -Supplement with Mag Citrate x1 today. DVT prophylaxis - Heparin subcutaneous. VS, I&O, 24H, Fishbone Vital Signs/I&O Vital Signs Date Time Temp Pulse Resp B/P (MAP) Pulse Ox O2 Delivery O2 Flow Rate FiO2 11/14/18 06:00 98.0 72 19 107/59 (75) 98 11/08/18 01:25 Room Air I&O- Last 24 Hours up to 6 AM 11/14/18 06:00 Intake Total 1800 ml Output Total 2100 ml Balance -300 ml Laboratory Data 24H LABS Laboratory Tests 2 11/13/18 18:13: Erythrocyte Sedimentation Rate 29H, C-Reactive Protein, Quantitative 3.32H, Prolactin 3.7 11/14/18 06:22: Nucleated Red Blood Cells % (auto) 0.0, Anion Gap 5L, Glomerular Filtration Rate > 60.0, Blood Urea Nitrogen 22#H, Creatinine 0.94, Sodium Level 137, Potassium Level 4.1, Chloride Level 106, Carbon Dioxide Level 26, Calcium Level 8.4L, Magn esium Level 2.2 CBC/BMP Laboratory Tests 11/14/18 06:22 Red Blood Count 5.01, Mean Corpuscular Volume 86.2, Mean Corpuscular Hemoglobin 28.7, Mean Corpuscular Hemoglobin Concent 33.3, Red Cell Distribution Width 13.2, Calcium Level 8.4 L GME ATTESTATION GME ATTESTATION My faculty preceptor for this patient encounter was physically present during the encounter and was fully available. All aspects of the patient interview, examination, medical decision making process, and medical care plan development were reviewed and approved by the faculty preceptor. The faculty preceptor is aware and concurs with the plan as stated in the body of this note and will attest to such by his/her cosignature. MENDOZA POWELL DO Nov 14, 2018 07:54
[2018-11-14] MEDS: GABAPENTIN 300 MG CAP PO SCH ×3 (08:45→20:22)
[2018-11-14] MEDS: SENOKOT S TAB PO SCH ×2 (08:46→20:22)
[2018-11-14] MEDS: amLODIPine 5 MG TAB PO SCH (08:46)
[2018-11-14] MEDS: METOPROLOL SUCC (TopROL XL) 100MG *XL* TAB PO SCH (08:46)
[2018-11-14] MEDS: DULoxetine 30 MG CAP (CYMBALTA) PO SCH ×2 (08:46→20:22)
[2018-11-14] MEDS: NYSTATIN 100,000 UNITS/GM TOPICAL PWD 15 GM TOP SCH ×2 (08:47→20:22)
[2018-11-14] MEDS ORDERED: traMADol 50 MG TAB PO PRN (12:00)
[2018-11-14] MEDS: PERCOCET 5MG/325MG TAB PO PRN (13:13)
--- NOTE | 2018-11-14 15:28 | REP ---
THREE-PHASE BONE SCAN: Hips and pelvis imaging. HISTORY: Concern for infection versus fracture. Comparison CT study of the hip November 07, 2018. TECHNIQUE: 22.0 mCi technetium 99m MDP is injected and standard three-phase imaging was acquired. FINDINGS: Anterior posterior flow study is normal. Blood pool images show no abnormal soft tissue localization in the region of the pelvis or either hip. Delayed scan images demonstrate a an arthritic pattern of mildly increased uptake in the superior aspect of the left hip articulation. Minimal increased uptake is seen in the right hip articulation. IMPRESSION: Osteoarthritic pattern of increased uptake in the superior aspect of the left hip. No abnormal uptake on the flow or blood pool phase. No evidence to suggest infection. No scintigraphic evidence to suggest avascular necrosis. Electronically Signed by Juan Carlos Parker MD 11/14/2018 04:26 P
[2018-11-14 15:30] VITALS: BP 126/76
--- NOTE | 2018-11-14 17:35 | IPN ---
DATE: 11/14/2018 This is a 47-year-old male patient with a history of left hip pain from a fall at home. He still describes his pain as very severe and aching with a pain score of 10/10 over the left hip and with radiation towards the left testicle and groin area. This gentleman was evaluated by Dr. August in the pain clinic yesterday, and it was suggested for him to have a workup to rule out any infections. We are awaiting lab results for CBC, C-reactive protein, sedimentation rate, and a consult with the orthopedic group. Dr. August believes that this gentleman can have the caudal epidural next Saturday pending these results and pending the results of the orthopedic consultation. Dr. 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 Please feel free to contact us for further information. Kind Regards, Leticia Turner, Nurse Practitioner [facility]
[2018-11-14] MEDS ORDERED: oxyCODONE 5MG TAB PO ONE (18:15)
[2018-11-14] MEDS ORDERED: oxyCODONE 5MG TAB PO PRN ×2 (19:30→21:00)
[2018-11-14] MEDS ORDERED: diazePAM 5 MG TAB PO ONE ×2 (21:00→21:15)
[2018-11-14 22:00] VITALS: BP 122/85
[2018-11-14] MEDS: oxyCODONE 5MG TAB PO PRN (22:32)
[2018-11-15] MEDS: oxyCODONE 5MG TAB PO PRN ×4 (02:31→14:59)
[2018-11-15] MEDS: HYDROMORPHONE HCL 0.5 MG/ 0.5 ML SYRINGE (J1170 PER 1) IV PRN ×5 (03:20→18:22)
[2018-11-15] MEDS: hydrOXYzine 25 MG TAB PO PRN ×3 (04:46→18:21)
[2018-11-15] MEDS: CARISOPRODOL 350 MG TAB PO PRN ×3 (04:46→18:21)
[2018-11-15 06:00] VITALS: BP 122/75
[2018-11-15 06:53] LABS: HEMATOCRIT 43.1 % (42.0-52.0); HEMOGLOBIN 14.2 g/dl (13.5-17.5); MEAN CORPUSCULAR HEMOGLOBIN 28.3 pg (27.0-33.0); MEAN CORPUSCULAR HGB CONC 32.9 g/dl (32.0-36.5); PLATELET COUNT, AUTOMATED 247 10^3/uL (150-450); RED BLOOD COUNT 5.01 10^6/uL (4.30-6.10); WHITE BLOOD COUNT 7.7 10^3/uL (4.0-10.0)
[2018-11-15 07:12] LABS: BLOOD UREA NITROGEN 19 MG/DL (7-18); CALCIUM LEVEL 8.2 MG/DL (8.5-10.1); CARBON DIOXIDE LEVEL 27 MEQ/L (21-32); CHLORIDE LEVEL 104 MEQ/L (98-107); CREATININE FOR GFR 1.02 MG/DL (0.70-1.30); GLOMERULAR FILTRATION RATE > 60.0 (>60); GLUCOSE, FASTING 85 MG/DL (70-100); MAGNESIUM LEVEL 1.9 MG/DL (1.8-2.4); POTASSIUM SERUM 3.8 MEQ/L (3.5-5.1); SODIUM LEVEL 137 MEQ/L (136-145)
[2018-11-15 09:00] VITALS: BP 139/89
[2018-11-15] MEDS: GABAPENTIN 300 MG CAP PO SCH ×3 (09:00→20:29)
[2018-11-15] MEDS: amLODIPine 5 MG TAB PO SCH (09:01)
[2018-11-15] MEDS: DULoxetine 30 MG CAP (CYMBALTA) PO SCH ×2 (09:02→20:30)
[2018-11-15] MEDS: SENOKOT S TAB PO SCH ×2 (09:02→20:29)
[2018-11-15] MEDS: METOPROLOL SUCC (TopROL XL) 100MG *XL* TAB PO SCH (09:02)
[2018-11-15] MEDS: NYSTATIN 100,000 UNITS/GM TOPICAL PWD 15 GM TOP SCH ×2 (09:03→20:30)
--- NOTE | 2018-11-15 10:09 | IPN ---
DATE OF SERVICE: 11/15/2018 HISTORY: José Miguel is a 47-year-old gentleman admitted for intractable left hip pain after a fall. I spoke with Dr. August over the phone on 11/14/2018 about this patient. One of my partners saw the patient earlier in the week for initial consultation. So far, imaging of the left hip included an x-ray and CAT scan. X-ray showed some arthritic changes, but the radiologist stated they could not rule out a femoral neck fracture. A CAT scan was obtained, which again shows arthritic changes, including joint space narrowing, subchondral cyst formation, no evidence of a femoral neck fracture. Unfortunately, the patient has some type of dorsal column stimulator, so he is unable to get an MRI. Dr. August is aware, and I explained to the patient that the best test to definitively rule out a femoral neck fracture or other fracture of the proximal femur is an MRI, and so we cannot conclusively state that there is no fracture. He does have some elevation in his inflammatory markers, including a C-reactive protein of 3.3 on 11/13/2018. Also, had an erythrocyte sedimentation rate (ESR) 29 on 11/13/2018. White count has gone down from 9.8 on 11/13/2018 to 7.7 today. The patient has been afebrile over the last 24 hours. The highest temperature documented is 98.7. It looks like there have been no temperatures above 99 since he has been in the hospital. When talking with José Miguel about his symptoms, he states he is having primarily left groin pain rather then lateral hip pain. 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 Unclear if this happened after a surgery or injury, but it sounds like he had a bad fracture or injury to his right hand and had a major reconstructive procedure done in [place]. He is very concerned about developing RSD in his left hip. He has concerns that he may already be getting RSD there. The patient tells me that as of now the plan is to get an intra-articular cortisone injection on Saturday. On examination, this is a middle-aged gentleman in no distress. He is alert and oriented times three. The patient answers all questions. Pulmonary: Nonlabored breathing. Musculoskeletal: The patient when he palpates his greater trochanteric area of the left hip states that he feels there is some warmth there. The patient states that most his pain is if he sits forward or tries to put weight on it. IMAGING: X-rays of the left hip were obtained, available for my review. They show again arthritic changes. Do not appreciate any femoral neck fractures. I carefully reviewed the CAT scan, and I agree there is no sign of femoral neck fracture. A bone scan was obtained yesterday, and the report states that there is uptake consistent with degenerative change of the left hip joint. No clear signs for infection or fracture. ASSESSMENT AND PLAN: José Miguel is a 47-year-old gentleman with severe left hip pain, likely due to osteoarthritis and hip contusion, but there is the possibility of a nondisplaced femoral neck fracture. I spent greater than 20 minutes with [id number] time with the patient, in which the majority of that was coordinating care, directing treatment. My recommendations are as follows: 1. Repeat the erythrocyte sedimentation rate (ESR) and C-reactive protein (CRP) on 11/16/2018, prior to the hip injection on Saturday and make sure the CRP and ESR are going down. 2. Although I have asked the patient to ambulate over the next 48 hours with a walker so we can obtain a repeat CAT scan, the patient refuses and states he will walk as soon as he has his hip injection. The patient needs a CT of the left hip. This actually needs to be requested to have the thinnest cuts possible, preferably 1 mm axial slices, so a CT a left hip with thin bony cuts to rule out a femoral neck fracture. I clearly explained to the patient that there is the possibility of a fracture that we just cannot see. That is extremely unlikely now based on the bone scan, but to be safe because we cannot get an MRI, he should get that repeat CAT scan. He understands that. At this point, all treatment for the hip pain can be coordinated between the primary medical team and Dr. August. There is no need for him to followup in the orthopedic clinic. The patient repeated his concerns that he could be developing or he might develop RSD in his hip. I explained that as orthopedic surgeons we are not trained in the latest diagnostic and therapeutic evaluations and tools for RSD and that he should discuss that with Dr. August, if there are any treatments, if there is a suspicion for RSD if anything can be done to either help prevent that or to aggressively treat it, if that is a possibility. He understands that. The patient had all his questions answered. He had no further questions, and he agrees with the plan.
[2018-11-15 14:00] VITALS: BP 128/89
[2018-11-15] MEDS ORDERED: diazePAM 5 MG TAB PO ONE (15:45)
[2018-11-15] MEDS ORDERED: fentaNYL 25 MCG/HR PATCH TOP ONE ×2 (16:00→18:30)
[2018-11-15] MEDS: ENOXAPARIN 40 MG/0.4 ML SYRINGE (J1650) SC SCH (17:36)
[2018-11-15 18:40] VITALS: BP 136/97
--- NOTE | 2018-11-15 19:11 | IPNPDOC ---
Date Seen The patient was seen on 11/15/18. Progress Note SUBJECTIVE: Patient is a 47-year-old gentleman admitted for intractable left hip pain status post fall. Patient was seen and examined. No overnight events were reported. Nuclear medicine study was negative for avascular necrosis. Still has not had a bowel movement. OBJECTIVE PHYSICAL EXAMINATION: VITAL SIGNS: Please see below. GENERAL: 47-year-old male, appears uncomfortable, slightly in distress HEENT: Atraumatic normocephalic no JVD Supple no lymphadenopathy CARDIOVASCULAR: Normal S1-S2 sounds no audible murmurs rubs or gallops RESPIRATORY: Morbidly obese difficult to hear lung sounds because of body habitus but no audible rhonchi, Rales or wheezing noted ABDOMINAL: Obese abdomen soft nontender positive bowel sounds. Reproducible inguinal hernia on the left with cough EXTREMITIES: No lower extremity edema. Left joint hip pain tender to touch (unchanged) LABORATORY DATA, IMAGING STUDIES, MICROBIOLOGY: Please see below. DVT prophylaxis ordered?: Yes Lovenox ASSESSMENT AND PLAN: This is a 47-year-old gentleman with past medical history of hypertension, chronic regional pain syndrome in the right upper extremity, chronic low back pain status post multiple thoracic and lumbar surgeries with two nerve dorsal column stimulators, discectomy, laminectomy, who presented to the emergency room after patient's leg gave out and subsequently fell without any loss of consciousness with significant left hip pain. PROBLEMS: Intractable left hip pain s/p fall. -questionable malingering vs true pathology -CT scan of the hip shows no fracture. -Unable to get MRI given patient has nerve stimulator. -Encourage physical therapy but patient refuse. -Pain Management consulted: Will refer all pain recommendation to them. -Repeat CBC, CRP and ESR -nuclear medicine study of the left hip: Negative for avascular necrosis -Infectious workup is negative, possible epidural on Saturday? -Orthopedic consulted Hypertension -c/w atenolol, Norvasc. Chronic regional pain syndrome -Continue with home Cymbalta and gabapentin -Pain management is following the patient will refer to them for pain management Chronic back pain -two dorsal column stimulators Constipation -Likely opioid induced. -c/w Colace and Senokot S. -Supplement with Mag Citrate x1 today. DVT prophylaxis -Lovenox VS, I&O, 24H, Fishbone Vital Signs/I&O Vital Signs Date Time Temp Pulse Resp B/P (MAP) Pulse Ox O2 Delivery O2 Flow Rate FiO2 11/15/18 18:40 98.1 72 20 136/97 (110) 94 I&O- Last 24 Hours up to 6 AM 11/15/18 06:00 Intake Total 1680 ml Output Total 0 ml Balance 1680 ml Laboratory Data 24H LABS Laboratory Tests 2 11/15/18 06:23: Nucleated Red Blood Cells % (auto) 0.0, Anion Gap 6L, Glomerular Filtration Rate > 60.0, Blood Urea Nitrogen 19H, Creatinine 1.02, Sodium Level 137, Potassium Level 3.8, Chloride Level 104, Carbon Dioxide Level 27, Calcium Level 8.2L, Magnesium Level 1.9 CBC/BMP Laboratory Tests 11/15/18 06:23 Red Blood Count 5.01, Mean Corpuscular Volume 86.0, Mean Corpuscular Hemoglobin 28.3, Mean Corpuscular Hemoglobin Concent 32.9, Red Cell Distribution Width 13.2, Calcium Level 8.2 L Microbiology Microbiology 11/14/18 Blood Culture - Preliminary, Resulted No growth after 24 hours . All specim... 11/14/18 Blood Culture - Preliminary, Resulted No growth after 24 hours . All specim... GME ATTESTATION GME ATTESTATION My faculty preceptor for this patient encounter was physically present during the encounter and was fully available. All aspects of the patient interview, examination, medical decision making process, and medical care plan development were reviewed and approved by the faculty preceptor. The faculty preceptor is aware and concurs with the plan as stated in the body of this note and will attest to such by his/her cosignature. MENDOZA POWELL DO Nov 15, 2018 19:11
[2018-11-15] MEDS ORDERED: MAGNESIUM CITRATE 300 ML BTL PO ONE (19:15)
[2018-11-15 20:00] VITALS: BP 118/76
[2018-11-15] MEDS: DOCUSATE SODIUM 100 MG CAP PO SCH (20:29)
[2018-11-16] VITALS (7 sets, daily range): BP systolic 119–138; BP diastolic 74–87
[2018-11-16] MEDS: HYDROMORPHONE HCL 0.5 MG/ 0.5 ML SYRINGE (J1170 PER 1) IV PRN ×2 (01:09→23:40)
[2018-11-16] MEDS: DULoxetine 30 MG CAP (CYMBALTA) PO SCH ×2 (08:04→20:25)
[2018-11-16] MEDS: SENOKOT S TAB PO SCH ×2 (08:04→20:24)
[2018-11-16] MEDS: METOPROLOL SUCC (TopROL XL) 100MG *XL* TAB PO SCH (08:04)
[2018-11-16] MEDS: DOCUSATE SODIUM 100 MG CAP PO SCH ×3 (08:04→20:24)
[2018-11-16] MEDS: ENOXAPARIN 40 MG/0.4 ML SYRINGE (J1650) SC SCH (08:05)
[2018-11-16] MEDS: GABAPENTIN 300 MG CAP PO SCH ×3 (08:05→20:25)
[2018-11-16] MEDS: amLODIPine 5 MG TAB PO SCH (08:05)
[2018-11-16] MEDS: NYSTATIN 100,000 UNITS/GM TOPICAL PWD 15 GM TOP SCH ×2 (08:06→20:25)
[2018-11-16 12:31] LABS: HEMATOCRIT 41.4 % (42.0-52.0); HEMOGLOBIN 13.8 g/dl (13.5-17.5); MEAN CORPUSCULAR HEMOGLOBIN 28.6 pg (27.0-33.0); MEAN CORPUSCULAR HGB CONC 33.3 g/dl (32.0-36.5); MEAN CORPUSCULAR VOLUME 85.7 fl (80.0-96.0); PLATELET COUNT, AUTOMATED 253 10^3/uL (150-450); RED BLOOD COUNT 4.83 10^6/uL (4.30-6.10); WHITE BLOOD COUNT 9.6 10^3/uL (4.0-10.0)
[2018-11-16 12:52] LABS: ERYTHROCYTE SEDIMENTATION RATE 28 mm/hr (0-15)
[2018-11-16 12:53] LABS: BLOOD UREA NITROGEN 13 MG/DL (7-18); C REACTIVE PROTEIN QUANTITATIV 2.61 MG/DL (0.00-0.30); CALCIUM LEVEL 8.6 MG/DL (8.5-10.1); CARBON DIOXIDE LEVEL 29 MEQ/L (21-32); CHLORIDE LEVEL 105 MEQ/L (98-107); CREATININE FOR GFR 0.96 MG/DL (0.70-1.30); GLOMERULAR FILTRATION RATE > 60.0 (>60); GLUCOSE, FASTING 88 MG/DL (70-100); POTASSIUM SERUM 4.3 MEQ/L (3.5-5.1); SODIUM LEVEL 136 MEQ/L (136-145)
[2018-11-16] MEDS: oxyCODONE 5MG TAB PO PRN ×2 (14:56→20:24)
--- NOTE | 2018-11-16 15:28 | IPNPDOC ---
Date Seen The patient was seen on 11/16/18. Progress Note SUBJECTIVE: Patient complains of continued pain has he has, but is awoken from his sleep to do as he has been the last several mornings. No new pain or complaints OBJECTIVE PHYSICAL EXAMINATION: VITAL SIGNS: Please see below. GENERAL: 47-year-old male, sleeping peacefully awoken by verbal stimuli HEENT: Atraumatic normocephalic no JVD Supple no lymphadenopathy CARDIOVASCULAR: Normal S1-S2 sounds no audible murmurs rubs or gallops RESPIRATORY: Morbidly obese difficult to hear lung sounds because of body habitus but no audible rhonchi, Rales or wheezing noted ABDOMINAL: Obese abdomen soft nontender positive bowel sounds EXTREMITIES: No clubbing cyanosis or edema patient declines exam of his hip or right arm LABORATORY DATA, IMAGING STUDIES, MICROBIOLOGY: Please see below. DVT prophylaxis ordered?: Lovenox will be held tomorrow ASSESSMENT AND PLAN: This is a 47-year-old gentleman with past medical history of hypertension, chronic regional pain syndrome in the right upper extremity, chronic low back pain with two nerve dorsal column stimulators here now with left hip pain Intractable left hip pain s/p fall. So far all imaging is been unable to reveal any etiology bone scan and CT scan plain films there is some concern as though there is a possible infection I feel feel this is much less likely. The patient has never been febrile he has not exhibited any significant leukocytosis has not been tachycardic or demonstrated evidence of systemic illness objectively. The patient is unable to get an MRI secondary to his spinal cord stimulators. In an effort to more definitively demonstrate lack of infection I've ordered a pro-calcitonin on November 14 as well as blood cultures which have remained negative. CRP and ESR are nonspecific and by no means diagnostic of any acute infectious process. His CRP is trending down his ESR is maintained elevated. These values should not inhibit any further pain management interventions in my opinion. The patient continues to refuse to dissipate or even attempt physical therapy. Once he has received his injection for pain would strongly physical therapy attempting ambulation and after ambulation reimaging of his hip as per orthopedic surgery CT recommendations. Orthopedic surgery and pain management consultations are on board. The patient is maintained on IV Dilaudid Neurontin Cymbalta tramadol and Percocet 10-15 mg and was briefly on a fentanyl patch in addition to his to spinal cord stimulators as per day management recommendations he has been provided with a bowel regimen as well Hypertension c/w atenolol, Norvasc and Lasix. Chronic regional pain syndrome As outlined above Constipation Likely related to opiate use continue with aggressive bowel regimen VS, I&O, 24H, Fishbone Vital Signs/I&O Vital Signs Date Time Temp Pulse Resp B/P (MAP) Pulse Ox O2 Delivery O2 Flow Rate FiO2 11/16/18 14:56 18 11/16/18 12:00 98.1 61 126/81 (96) 91 0.5 11/16/18 04:00 Nasal Cannula I&O- Last 24 Hours up to 6 AM 11/16/18 06:00 Intake Total 1140 ml Output Total 1225 ml Balance -85 ml Laboratory Data 24H LABS Laboratory Tests 2 11/16/18 12:21: Nucleated Red Blood Cells % (auto) 0.0, Erythrocyte Sedimentation Rate 28H, Anion Gap 2L, Glomerular Filtration Rate > 60.0, Blood Urea Nitrogen 13, Creatinine 0.96, Sodium Level 136, Potassium Level 4.3, Chloride Level 105, Carbon Dioxide Level 29, Calcium Level 8.6, C-Reactive Protein, Quantitative 2 .61H CBC/BMP Laboratory Tests 11/16/18 12:21 Red Blood Count 4.83, Mean Corpuscular Volume 85.7, Mean Corpuscular Hemoglobin 28.6, Mean Corpuscular Hemoglobin Concent 33.3, Red Cell Distribution Width 13.1, Calcium Level 8.6 Microbiology Microbiology 11/14/18 Blood Culture - Preliminary, Resulted No Growth after 48 hours. All Specime... 11/14/18 Blood Culture - Preliminary, Resulted No Growth after 48 hours. All Specime... CORINA MAS MD Nov 16, 2018 15:28
[2018-11-17] MEDS: hydrOXYzine 25 MG TAB PO PRN ×2 (00:56→17:50)
[2018-11-17] MEDS: oxyCODONE 5MG TAB PO PRN ×3 (00:56→08:57)
[2018-11-17] MEDS: HYDROMORPHONE HCL 0.5 MG/ 0.5 ML SYRINGE (J1170 PER 1) IV PRN ×3 (02:55→11:14)
[2018-11-17 04:00] VITALS: BP 125/82
[2018-11-17 06:20] LABS: HEMOGLOBIN 13.9 g/dl (13.5-17.5); MEAN CORPUSCULAR HEMOGLOBIN 28.8 pg (27.0-33.0); MEAN CORPUSCULAR HGB CONC 33.9 g/dl (32.0-36.5); MEAN CORPUSCULAR VOLUME 84.9 fl (80.0-96.0); PLATELET COUNT, AUTOMATED 253 10^3/uL (150-450); RED BLOOD COUNT 4.83 10^6/uL (4.30-6.10); WHITE BLOOD COUNT 7.6 10^3/uL (4.0-10.0)
[2018-11-17 06:43] LABS: BLOOD UREA NITROGEN 16 MG/DL (7-18); CALCIUM LEVEL 8.5 MG/DL (8.5-10.1); CARBON DIOXIDE LEVEL 28 MEQ/L (21-32); CHLORIDE LEVEL 105 MEQ/L (98-107); CREATININE FOR GFR 1.04 MG/DL (0.70-1.30); GLOMERULAR FILTRATION RATE > 60.0 (>60); GLUCOSE, FASTING 86 MG/DL (70-100); POTASSIUM SERUM 3.8 MEQ/L (3.5-5.1); SODIUM LEVEL 138 MEQ/L (136-145)
[2018-11-17 08:00] VITALS: BP 131/82
[2018-11-17] MEDS: METOPROLOL SUCC (TopROL XL) 100MG *XL* TAB PO SCH (08:57)
[2018-11-17] MEDS: SENOKOT S TAB PO SCH ×2 (08:57→21:31)
[2018-11-17] MEDS: DULoxetine 30 MG CAP (CYMBALTA) PO SCH ×2 (08:57→21:31)
[2018-11-17] MEDS: DOCUSATE SODIUM 100 MG CAP PO SCH ×3 (08:57→21:30)
[2018-11-17] MEDS: GABAPENTIN 300 MG CAP PO SCH ×3 (08:58→21:31)
[2018-11-17] MEDS: amLODIPine 5 MG TAB PO SCH (08:58)
[2018-11-17] MEDS: NYSTATIN 100,000 UNITS/GM TOPICAL PWD 15 GM TOP SCH ×2 (08:59→21:32)
[2018-11-17] MEDS ORDERED: SLF 3 ML SYR IV PRN (10:30)
[2018-11-17 12:00] VITALS: BP 132/70
[2018-11-17] MEDS ORDERED: TRIAMCINOLONE ACETONIDE SUSP 40 MG/ML VIAL (J3301) As Ordered ONE (12:51)
[2018-11-17] MEDS ORDERED: LIDOCAINE 1% SDV INJ 30 ML VIAL As Ordered ONE (12:52)
[2018-11-17] MEDS ORDERED: BUPIVACAINE HCL 0.25% 30 ML VIAL As Ordered ONE (12:52)
[2018-11-17] MEDS ORDERED: ISOVUE-M 300 61% 15ML VIAL (Q9967) As Ordered ONE (12:52)
[2018-11-17] MEDS ORDERED: oxyCODONE 5MG TAB As Ordered ONE (13:27)
[2018-11-17] MEDS ORDERED: diazePAM 5 MG TAB As Ordered ONE (13:27)
[2018-11-17] MEDS: SLF 3 ML SYR IV SCH ×2 (14:00→21:32)
--- NOTE | 2018-11-17 15:17 | IPNPDOC ---
Date Seen The patient was seen on 11/17/18. Progress Note SUBJECTIVE: Patient is a 47-year-old gentleman admitted for intractable left hip pain status post fall. Patient was seen and examined this morning on PCU. There is some confusion as to the patient's of what is the next step. Clarification was made via pain management and orthopedic surgery. Patient will get his pain injection today attempt ambulation for a couple of steps and then will get repe at CT imaging of the left hip to rule out left femoral neck stress fracture. Patient was on the pleasant mood this morning. All of his questions were answered though. He did admit to having a significant bowel movement yesterday and does not feel constipated anymore. He denies any chest pain, shortness of breath, nausea, vomiting vomiting, diarrhea, constipation. OBJECTIVE PHYSICAL EXAMINATION: VITAL SIGNS: Please see below. GENERAL: 47-year-old male, appears uncomfortable, slightly in distress HEENT: Atraumatic normocephalic no JVD Supple no lymphadenopathy CARDIOVASCULAR: Normal S1-S2 sounds no audible murmurs rubs or gallops RESPIRATORY: Morbidly obese difficult to hear lung sounds because of body habitus but no audible rhonchi, Rales or wheezing noted ABDOMINAL: Obese abdomen soft nontender positive bowel sounds. Reproducible inguinal hernia on the left with cough EXTREMITIES: No lower extremity edema. Left joint hip pain tender to touch (baseline) LABORATORY DATA, IMAGING STUDIES, MICROBIOLOGY: Please see below. DVT prophylaxis ordered?: Yes Lovenox ASSESSMENT AND PLAN: This is a 47-year-old gentleman with past medical history of hypertension, chronic regional pain syndrome in the right upper extremity, chronic low back pain status post multiple thoracic and lumbar surgeries with two nerve dorsal column stimulators, discectomy, laminectomy, who presented to the emergency room after patient's leg gave out and subsequently fell without any loss of consciousness with significant left hip pain. PROBLEMS: Intractable left hip pain s/p fall. -questionable malingering vs true pathology -CT scan of the hip shows no fracture. -Unable to get MRI given patient has nerve stimulator. -Encourage physical therapy but patient refuse. -Pain Management consulted: Will refer all pain recommendation to them. -Prolactin level 0.06 -nuclear medicine study of the left hip: Negative for avascular necrosis -Infectious workup is negative, possible injection today -Repeat CT of the left hip after injection with thin slices to assess the small femoral head neck fracture per orthopedics recommendation -Orthopedic consulted Hypertension -c/w atenolol, Norvasc. Chronic regional pain syndrome -Continue with home Cymbalta and gabapentin -Pain management is following the patient will refer to them for pain management Chronic back pain -two dorsal column stimulators Constipation (resolved) -Likely opioid induced. -c/w Colace and Senokot S. DVT prophylaxis -Lovenox Disposition: Repeat CT of the left hip, Possible discharge in the a.m. VS, I&O, 24H, Fishbone Vital Signs/I&O Vital Signs Date Time Temp Pulse Resp B/P (MAP) Pulse Ox O2 Delivery O2 Flow Rate FiO2 11/17/18 12:00 98.0 67 18 132/70 (90) 95 11/17/18 10:00 Room Air 11/17/18 04:00 0.5 I&O- Last 24 Hours up to 6 AM 11/17/18 06:00 Intake Total 1200 ml Output Total 1550 ml Balance -350 ml Laboratory Data 24H LABS Laboratory Tests 2 11/17/18 05:58: Nucleated Red Blood Cells % (auto) 0.0, Anion Gap 5L, Glomerular Filtration Rate > 60.0, Blood Urea Nitrogen 16, Creatinine 1.04, Sodium Level 138, Potassium Level 3.8, Chloride Level 105, Carbon Dioxide Level 28, Calcium Level 8.5 CBC/BMP Laboratory Tests 11/17/18 05:58 Red Blood Count 4.83, Mean Corpuscular Volume 84.9, Mean Corpuscular Hemoglobin 28.8, Mean Corpuscular Hemoglobin Concent 33.9, Red Cell Distribution Width 12.9, Calcium Level 8.5 Microbiology Microbiology 11/14/18 Blood Culture - Preliminary, Resulted No Growth after 72 hours. All specime... 11/14/18 Blood Culture - Preliminary, Resulted No Growth after 72 hours. All specime... GME ATTESTATION GME ATTESTATION My faculty preceptor for this patient encounter was physically present during the encounter and was fully available. All aspects of the patient interview, examination, medical decision making process, and medical care plan development were reviewed and approved by the faculty preceptor. The faculty preceptor is aware and concurs with the plan as stated in the body of this note and will atte st to such by his/her cosignature. MENDOZA POWELL DO Nov 17, 2018 15:17
[2018-11-17 16:05] VITALS: BP 124/76
--- NOTE | 2018-11-17 17:07 | REP ---
CT study left hip without contrast: History: Severe left hip pain. Assess for left femoral neck fracture. Thin sections requested. Repeat exam. Comparison study November 07, 2018. The patient is status post intra-articular injection and aspiration today. Technique: Helical scanning is acquired. 0.8 mm slices are reformatted in the axial plane. Coronal and sagittal MPR images are generated as well. Findings: There is no evidence of fracture involving the left proximal femur or left codie pelvis. Moderate osteoarthritis is seen with arthritis associated acetabular cyst formation, sclerosis, and femoral acetabular spur formation as before. There is some injection artifact with contrast in the anterior pericapsular soft tissues from today's injection procedure. There is a small soft tissue calcification with some adjacent spurring in the tip of the greater trochanter on the left which may be reflective of tendonitis. Impression: Injection artifact in the anterior pericapsular soft tissues. Moderate osteoarthritis of the left hip. No fracture or other acute bony abnormality seen. Electronically Signed by Juan Carlos Parker MD 11/17/2018 05:42 P
--- NOTE | 2018-11-17 17:08 | REP ---
Show left hip series: Five views. History: Hip injection for pain. 55 seconds of fluoroscopy time is reported. Findings: A sequence of five last image hold fluoroscopically obtained spot radiographs of the left hip document needle position and contrast injection associated with hip injection procedure. Electronically Signed by Juan Carlos Parker MD 11/17/2018 05:43 P
[2018-11-17 20:00] VITALS: BP 119/84
[2018-11-18 04:00] VITALS: BP 162/95
[2018-11-18] MEDS: SLF 3 ML SYR IV SCH (05:28)
[2018-11-18 08:00] VITALS: BP 176/95
[2018-11-18] MEDS: ENOXAPARIN 40 MG/0.4 ML SYRINGE (J1650) SC SCH (09:00)
[2018-11-18] MEDS: NYSTATIN 100,000 UNITS/GM TOPICAL PWD 15 GM TOP SCH (09:00)
[2018-11-18] MEDS: METOPROLOL SUCC (TopROL XL) 100MG *XL* TAB PO SCH (09:22)
[2018-11-18] MEDS: SENOKOT S TAB PO SCH (09:22)
[2018-11-18] MEDS: GABAPENTIN 300 MG CAP PO SCH (09:22)
[2018-11-18] MEDS: DOCUSATE SODIUM 100 MG CAP PO SCH (09:22)
[2018-11-18] MEDS: DULoxetine 30 MG CAP (CYMBALTA) PO SCH (09:22)
[2018-11-18 09:23] VITALS: BP 176/95
[2018-11-18] MEDS: amLODIPine 5 MG TAB PO SCH (09:23)
--- NOTE | 2018-11-18 12:00 | DS.PDOC ---
Discharge Summary General Date of Admission Nov 10, 2018 at 12:10 Date of Discharge 10/18/2018 Primary Care Physician: Red Erickson Discharge Summary PROCEDURES PERFORMED DURING STAY: Left hip steroid injection ADMITTING DIAGNOSES: 1. Intractable pain status post fall. 2. Hypertension 3. Chronic pain syndrome. DISCHARGE DIAGNOSES: 1. Intractable left hip pain s/p fall. 2. Hypertension 3. Hx of Chronic regional pain syndrome 4. Chronic back pain 5. Opioid-induced constipation COMPLICATIONS/CHIEF COMPLAINT: Fall, Intractable Pain. HISTORY OF PRESENT ILLNESS: The patient is a 47-year-old male with significant past medical history with hypertension, chronic regional pain syndrome in the right upper extremity, chronic low back pain status post multiple thoracic and lumbar surgeries, discectomy, laminectomy, who presents to the emergency room he states after his legs gave out. He denies any loss of consciousness, any chest pain or any shortness of breath. He states that after his legs gave out he was unable to bear weight on his left lower extremity. The patient is intolerable to any movement of the left lower extremity, no flexion, extension, inability to ambulate. I am unclear if the patient is malingering or if there is actual pain. The patient has two spinal stimulators and therefore is not a candidate for MRI. A CT of the lower extremity focused on the hip in the emergency room, was negative for any pathology. He is able to feel sensation in the lower extremity and move his toes. He denies any fevers or chills. He does have urinary incontinence at baseline. HOSPITAL COURSE: While the patient was admitted to the hospitalist service. Extensive workup was done to rule out inflammatory versus infectious versus acute fracture of the left hip. Multiple images were taking to rule out left femoral neck fracture, left femoral necks necrosis, and any other acute changes. Pain management was also consulted to help manage the patient intractable left hip pain. Once weve ruled out any acute problems he was stable for a left hip steroid injection under fluoroscopy. On the day of discharge the patient was cleared by PT and was stable to go home. He was advised to continue all his medication as prescribed. Dr. August called and states that he has sent a Percocet taper for him to take for the next 5 days. He is to follow-up with his primary care provider in 7-10 days and pain management in 2-3 weeks. He is agreeable to the plan stated to him. DISCHARGE MEDICATIONS: Please see below. ALLERGIES: Please see below. PHYSICAL EXAMINATION ON DISCHARGE: VITAL SIGNS: Please see below. GENERAL: 47-year-old male, appears in no acute distress sitting up in his all dressed and ready to be discharged. HEENT: Atraumatic normocephalic no JVD Supple no lymphadenopathy CARDIOVASCULAR: Normal S1-S2 sounds no audible murmurs rubs or gallops RESPIRATORY: Morbidly obese difficult to hear lung sounds because of body habitus but no audible rhonchi, Rales or wheezing noted ABDOMINAL: Obese abdomen soft nontender positive bowel sounds. Reproducible inguinal hernia on the left with cough EXTREMITIES: No lower extremity edema. Left joint hip pain tender to touch (baseline) LABORATORY DATA: Please see below. IMAGIN11/07/2018 Hip/pelvis x-ray Impression: Degenerative changes. While no definite acute fractures appreciated. Irregularity to the left femoral neck is suggested and may reflect a subtle injury. Clinical correlation is required. Left hip extremity CT IMPRESSION: No CT evidence of acute fracture or dislocation. If the patient's clinical symptoms persist or worsen, MRI would provide a more sensitive evaluation for occult fracture 11/08/[address] IMPRESSION: 1. No CT evidence of acute intracranial pathology. 11/13/2018 Scrotum ultrasound Impression: Small nonspecific hydroceles and 3 mm right epididymal head cyst. Otherwise normal scrotal/testicular ultrasound. 11/14/2018 Bone scan nuclear medicine IMPRESSION: Osteoarthritic pattern of increased uptake in the superior aspect of the left hip. No abnormal uptake on the flow or blood pool phase. No evidence to suggest infection. No scintigraphic evidence to suggest avascular necrosis. 11/17/2018 Guided fluoroscopy Findings: A sequence of five last image hold fluoroscopically obtained spot radiographs of the left hip document needle position and contrast injection associated with hip injection procedure. Left hip Extremity CT Impression: Injection artifact in the anterior pericapsular soft tissues. Moderate osteoarthritis of the left hip. No fracture or other acute bony abnormality seen. PROGNOSIS: Fair ACTIVITY: As tolerated. DIET: 2 g Sodium Diet DISPOSITION: 01 Home, Self-Care. DISCHARGE INSTRUCTIONS: 1. fu with pcp in 7-10 days. 2. fu with pain in 2-3 weeks. 3. Continue all medications as proscribed. 4. If symptoms return or worsen please call pcp or return to the ER. DISCHARGE CONDITION: Stable. TIME SPENT ON DISCHARGE: Greater than 35 minutes. Vital Signs/I&Os Vital Signs Date Time Temp Pulse Resp B/P (MAP) Pulse Ox O2 Delivery O2 Flow Rate FiO2 11/18/18 09:23 58 176/95 11/18/18 08:00 0.0 11/18/18 08:00 97.8 18 95 11/17/18 18:00 Room Air I&O- Last 24 Hours up to 6 AM 11/18/18 06:00 Intake Total 0 ml Output Total 100 ml Balance -100 ml Microbiology Microbiology 11/14/18 Blood Culture - Preliminary, Resulted No Growth after 72 hours. All specime... 11/14/18 Blood Culture - Preliminary, Resulted No Growth after 72 hours. All specime... Discharge Medications Scheduled Amlodipine Besylate (Amlodipine Besylate) 5 Mg Tab, 5 MG PO DAILY, (Reported) patient states he has to have medications on his normal home schedule Atenolol (Atenolol) 50 Mg Tab, 50 MG PO DAILY, (Reported) patient states he has to have medications on his normal home schedule Duloxetine Hcl (Cymbalta) 60 Mg Cap, 60 MG PO BID, (Reported) Gabapentin (Gabapentin) 300 Mg Cap, 300 MG PO QID, (Reported) Metoprolol Succinate (Metoprolol Succinate) 100 Mg Tab, 100 MG PO DAILY, (Reported) [Medical Marijuana] , 1 DOSE INH PRN, (Reported) VAPOR SOLUTION Scheduled PRN Docusate Sodium (Docusate Sodium) 100 Mg Cap, 100 MG PO BID PRN for CONSTIPATION, (Reported) patient states he has to have medications on his normal home schedule Furosemide (Lasix) 20 Mg Tab, 20 MG PO DAILY PRN for FEET SWELLING, (Reported) Hydroxyzine HCl (Hydroxyzine HCl) 25 Mg Tab, 25 MG PO QID PRN for ANXIETY, (Reported) patient states he has to have medications on his normal home schedule Allergies Coded Allergies: buspirone (Unverified Allergy, Severe, FACIAL RASH , SWELLING , HIVES, 11/08/18) chlorthalidone (Verified Allergy, Mild, RASH, 11/07/18) lisinopril (Verified Adverse Reaction, Intermediate, RENAL FAILURE, 11/07/18) ibuprofen (Verified Adverse Reaction, Unknown, RENAL PAILURE, 11/07/18) GME ATTESTATION GME ATTESTATION My faculty preceptor for this patient encounter was physically present during the encounter and was fully available. All aspects of the patient interview, examination, medical decision making process, and medical care plan development were reviewed and approved by the faculty preceptor. The faculty preceptor is aware and concurs with the plan as stated in the body of this note and will attest to such by his/her cosignature. ATTENDING NOTE I, Briana Peralta, have both independently examined this patient as well as reviewed the documentation. I have discussed in detail with the resident the findings and plan of treatment as documented in the residents documentation. I will continue to follow the patient and offer further guidance to the patients care as necessary during this hospital stay. MENDOZA POWELL DO Nov 18, 2018 12:00 BRIANA PERALTA MD Nov 18, 2018 18:55
[2018-11-18] MEDS ORDERED: FENTANYL REMOVAL DOCUMENTATION MISC XX ONE (19:00)
== END 2018-11-18 11:24 | disposition home or self-care (01) | DRG 556 ==
LOC: M ED 21:29 → M ED INP 21:30 → M MS5PR 11-08 01:40 → OBSVTOIN 11-10 12:10 → INTOOBSV 11-10 12:10 → M PCU 11-15 18:38
PROVIDERS: ADMIT Internal Medicine; ATTEND Internal Medicine
DX: M25.552 Pain in left hip (principal); Z68.41 Body mass index [BMI] 40.0-44.9, adult; G90.59 Complex regional pain syndrome I of other specified site; E66.01 Morbid (severe) obesity due to excess calories; I10 Essential (primary) hypertension; M54.5 Low back pain; K59.00 Constipation, unspecified; Z79.899 Other long term (current) drug therapy; Z88.8 Allergy status to other drugs, medicaments and biological substances; F17.210 Nicotine dependence, cigarettes, uncomplicated; F11.90 Opioid use, unspecified, uncomplicated

== ENCOUNTER → 2018-11-13 | Outpatient (CLI) | payer MEDICARE ==
[~2018-11-13] MED LIST changes: +CYMB60CA3 PO; +LASI20TA3 PO; +MEDICAL MARIJUANA INH; +METO1TAB33 PO
== END ==
LOC: M PAIN 13:45
PROVIDERS: ATTEND Anesthesiology
DX: M96.1 Postlaminectomy syndrome, not elsewhere classified (principal); M54.16 Radiculopathy, lumbar region; Z53.29 Procedure and treatment not carried out because of patient's decision for other reasons

== ENCOUNTER → 2018-11-17 | Outpatient (CLI) | payer MEDICARE ==
[~2018-11-17] MED LIST changes: +BUPIVACAINE HCL 0.25% 30 ML VIAL ONE; +ISOVUE-M 300 61% 15ML VIAL (Q9967) ONE; +TRIAMCINOLONE ACETONIDE SUSP 40 MG/ML VIAL (J3301) ONE
--- NOTE | 2018-12-03 00:28 | ECWPNPC ---
PATIENT NAME: WARREN SANTOS : 1970 GENDER: MALE VISIT DATE: 11/17/2018 DISCHARGE DATE: 11/17/1849 VISIT LOCKED DATE TIME: PHYSICIAN: MICHAEL MODI MD RESOURCE: MICHAEL MODI MD REASON FOR APPOINTMENT 1. HIP INJECTION HISTORY OF PRESENT ILLNESS HISTORY OF PRESENT ILLNESS: PAIN THE PATIENT DESCRIBES THE PAIN... FALL RISK SCREENING: SCREENING :NO FALLS REPORTED IN THE LAST YEAR CURRENT MEDICATIONS TAKING CYMBALTA 60 MG CAPSULE DELAYED RELEASE PARTICLES 1 CAPSULE ORALLY BID, NOTES: 11/17 899 TAKING GABAPENTIN 300 MG TABLET 1 CAPSULE ORALLY FOR PAIN FOUR TIMES DAILY, NOTES: 11/17 899 TAKING METOPROLOL SUCCINATE ER 100 MG TABLET EXTENDED RELEASE 24 HOUR 1 TABLET ORALLY ONCE A DAY, NOTES: 11/17 899 TAKING MAY USE - - MEDICAL MARIJUANA ORALLY DIRECTED TAKING ATENOLOL 50 MG TABLET 1 TABLET ORALLY ONCE A DAY TAKING AMLODIPINE BESYLATE 5 MG TABLET 1 TABLETS ORALLY ONCE A DAY, NOTES: 11/18 899 TAKING LASIX 20 MG TABLET 1 TABLET ORALLY ONCE A DAY NEEDED TAKING HYDROXYZINE HCL 25 MG TABLET 1 TABLET NEEDED ORALLY FOUR TIMES DAILY, NOTES: 11/18 1199 MIDNIGHT TAKING LOVENOX 40 MG/0.4ML SOLUTION 0.4 ML SUBCUTANEOUS ONCE A DAY, NOTES: 11/16 8AM TAKING DOCUSATE SODIUM 100 MG TABLET 2 TABLET NEEDED ORALLY TID, NOTES: 11/17 899 TAKING SENNA - TABLET 2 TABLETS AT BEDTIME NEEDED ORALLY , NOTES: 11/17 899 TAKING NYSTATIN [id number] UNIT/GM CREAM 1 APPLICATION TO AFFECTED AREA EXTERNALLY TWICE A DAY, NOTES: 11/17 899 NOT-TAKING LIDOCAINE 5 % OINTMENT 1 APPLICATION TO AFFECTED AREA NEEDED EXTERNALLY THREE TIMES A DAY NOT-TAKING VOLTAREN 1 % GEL ONE APPLICATION EXTERNALLY QID TO RIGHT UPPER EXTREMITY NOT-TAKING HYDROCORTISONE 2.5 % CREAM 1 APPLICATION TO AFFECTED AREA EXTERNALLY TWICE A DAY MEDICATION LIST REVIEWED AND RECONCILED WITH THE PATIENT PAST MEDICAL HISTORY HTN ANXIETY REFLEX SYMPATHETIC DYSTROPHY/COMPLEX REGIONAL PAIN SYNDROME RIGHT UPPER EXTREMITY SPINAL STENOSIS- LUMBAR SACROILIITIS MYALGIA ACUTE RENAL FAILURE ALLERGIES BUSPIRONE HCL: FACIAL RASH, SWELLING, HIVES - ALLERGY IBUPROFEN: ACUTE RENAL FAILURE - ALLERGY LISINOPRIL: ACUTE RENAL FAILURE - ALLERGY CHLORTHALIDONE: RASH/FOLLICULITIS - SIDE EFFECTS SURGICAL HISTORY LAMINECTOMY/DISCECTOMY L1-S1 04/2015 DCS- CERVICAL 07/2011 INGUINAL HERNIA REPAIR GROIN LYMPH NODE EXCISION RIGHT HAND- SCREWS/PLATE 2001 ARTHROSCOPIC KNEE SURGERY DENTAL EXTRACTIONS DORSAL COLUMN STIMULATOR- THORACIC/LUMBAR- DR BURGESS 02/2017 FAMILY HISTORY FATHER: ALIVE, DIAGNOSED WITH HYPERTENSION MOTHER: ALIVE, HYPERTENSION, HEART DISEASE, DIABETES PATERNAL GRAND FATHER: HEART DISEASE PATERNAL GRAND MOTHER: DIABETES 2 SON(S) - HEALTHY. SOCIAL HISTORY GENERAL: TOBACCO USE ARE YOU A:CURRENT SMOKER HOW OFTEN DO YOU SMOKE CIGARETTES?EVERY DAY HOW SOON AFTER YOU WAKE UP DO YOU SMOKE YOUR FIRST CIGARETTE?6-30 MIN HOW MANY CIGARETTES A DAY DO YOU SMOKE?11-20 ARE YOU INTERESTED IN QUITTING?NOT READY TO QUIT ADDITIONAL FINDINGS: TOBACCO USERMODERATE CIGARETTE SMOKER (10-19 CIGS/DAY) PATIENT COUNSELED ON THE DANGERS OF TOBACCO USE AND URGED TO QUIT:11/04/2018 COUNSELED THE PATIENT ON SMOKING EFFECTS, EDUCATION [id number]/26/2019 SMOKING CESSATION INFORMATION GIVEN10/31/2018 11/04/18 PT DECLINED LATEX QUESTIONNAIRE LATEX ALLERGY : HAVE YOU EVER DEVELOPED ANY TYPE OF REACTION AFTER HANDLING LATEX PRODUCTS SUCH RUBBER GLOVES, CONDOMS, DIAPHRAGMS, BALLOONS, SOCKS, OR UNDERWEAR?NO LATEX ALLERGY : HAVE YOU EVER DEVELOPED ANY TYPE OF REACTION DURING OR AFTER DENTAL APPOINTMENT, VAGINAL/RECTAL EXAMINATION, SURGICAL PROCEDURE, OR ANY OTHER EXPOSURE?NO LATEX RISK : HAVE YOU EVER HAD ANY DIFFICULTY BREATHING OR HIVES AFTER EATING OR HANDLING ANY FRUITS, OR VEGETABLES; SUCH KIWI, BANANAS, STONE FRUITS, OR CHESTNUTSNO LATEX RISK : DO YOU HAVE A PREVIOUS PERSONAL HISTORY OF MORE THAN NINE SURGERIES, SPINA BIFIDA, OR REPEATED CATHERTIZATIONS? NO LATEX RISK : ARE YOU FREQUENTLY EXPOSED TO LATEX PRODUCTS IN YOUR OCCUPATION?NO DATE ASKED : 11/17/2018 BMI CARE GOAL FOLLOW-UP ABOVE NORMAL BMI FOLLOW-UPDIETARY MANAGEMENT EDUCATION, GUIDANCE, AND COUNSELING ALCOHOL SCREENING DID YOU HAVE A DRINK CONTAINING ALCOHOL IN THE PAST YEAR?NO POINTS0 INTERPRETATIONNEGATIVE RECREATIONAL DRUG USE DRUG USE?NO CAFFEINE CAFFEINE USE?YES HOW OFTEN AND HOW MUCH? 2 COFFEES DAILY HIV / HEP-C SCREENING HIV TEST OFFERED TO PATIENT:YES DATE OFFERED:10/31/2018 TEST ACCEPTED:NO HEP-C TEST OFFERED TO PATIENT:NO REASON:PATIENT DECLINED BROCHURE PROVIDED TO PATIENTNO TAOISM [id number] BAPTISM NO TEMPLE BELIEFS THAT WOULD IMPACT HEALTH CARE. 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 DIET: REGULAR. EXERCISE: NO REGULAR EXERCISE. MARITAL STATUS: SINGLE. OTHERS AT HOME: SPOUSE, CHILDREN. PAIN CLINIC PFS, CLERGY, PUBLIC HEALTH REFERRALS PFS REFERRAL NEEDED?NO CLERGY REFERRAL NEEDED?NO PUBLIC HEALTH REFERRAL NEEDED?NO WAS THE PROVIDER NOTIFIED OF ANY PERTINENT INFO? N/A HAS THE PATIENT BEEN EDUCATED REGARDING HIS/HER PLAN OF CARE?YES HAS THE PATIENT BEEN EDUCATED REGARDING PAIN, THE RISK FOR PAIN, THE IMPORTANCE OF EFFECTIVE PAIN MANAGEMENT, AND THE PAIN ASSESSMENT PROCESS?YES ADVANCE DIRECTIVE ADVANCE DIRECTIVE DISCUSSED WITH PATIENT:YES PT. DOES NOT HAVE ANY ADVANCED DIRECTIVES AND HE DECLINED INFORAMTION ON HCP AT THIS TIME REVIEWED WITH PATIENT 10/13/18 1348 JS. HOSPITALIZATION/MAJOR DIAGNOSTIC PROCEDURE SURGERIES ACUTE RENAL FAILURE 03/2016 REVIEW OF SYSTEMS REVIEWED BY: PROVIDER: . CONSTITUTIONAL: ANY CHANGE IN YOUR MEDICAL CONDITION? NO . CHILLS NO . FEVER NO . INFECTION: DO YOU HAVE NEW INFECTIONS? NO . DO YOU HAVE HISTORY OF MRSA? NO . MUSCULOSKELETAL: ANY NEW PATTERNS OF PAIN OR NUMBNESS? NO . GASTROENTEROLOGY: ANY NEW CHANGE IN BOWEL CONTROL? NO . GENITOURINARY: ANY NEW CHANGE IN BLADDER CONTROL? NO . IS THERE A CHANCE YOU COULD BE ? NO . HEMATOLOGY/LYMPH: DO YOU TAKE ANY BLOOD THINNERS? (FOR EXAMPLE- COUMADIN, PLAVIX, AGGRENOX, PLATEL, PRADAXA, OR XARELTO) NO . WHEN WAS YOUR LAST DOSE? DATE: TIME: . NEUROLOGY: HAVE YOU FALLEN IN THE PAST 12 MONTHS? NO . ANY NEW EXTREMITY NUMBNESS OR WEAKNESS? NO . CARDIOLOGY: DO YOU HAVE A PACEMAKER OR DEFIBRILLATOR? NO . RESPIRATORY: HAVE YOU BEEN SICK IN THE PAST WEEK? NO . FEVER NO . FLU LIKE SYMPTOMS? NO . COUGH NO . INTEGUMENTARY: DO YOU HAVE ANY RASHES OR OPEN SORES? NO . ALLERGIC/IMMUNO: ARE YOU ALLERGIC TO IV DYE? NO . ANY NEW ALLERGIES? NO . PSYCHIATRIC: DO YOU HAVE THOUGHTS OF HURTING YOURSELF OR SOMEONE ELSE? NO . ARE YOU ABUSED, NEGLECTED, OR IN AN UNSAFE ENVIRONMENT? NO . ENDOCRINOLOGY: ARE YOU DIABETIC? NO . OTHER: DO YOU NEED ANY PRESCRIPTIONS? NO . IF YES, PLEASE LIST: ____ . ANY NEW PROBLEMS WITH YOUR MEDICATIONS? NO . WHEN DID YOU LAST EAT? ____ . WHEN DID YOU LAST DRINK? ____ . WHAT DID YOU LAST DRINK? ____ . NAME OF PERSON DRIVING YOU HOME? ____ . DO YOU HAVE ANY OTHER QUESTIONS OR CONCERNS NO . VITAL SIGNS WT 282 LBS, HT 69 IN, BMI 41.64 INDEX, BP 130/93 MM HG, HR 64 /MIN, RR 18 /MIN, TEMP 97.6 F, OXYGEN SAT % 95%, SAFE IN ENV? (Y/N) Y, REVIEWED BY: BRIANNE. ASSESSMENTS OSTEOARTHRITIS OF LEFT HIP, UNSPECIFIED OSTEOARTHRITIS TYPE - M16.12 (PRIMARY) TREATMENT OTHERS START OXYCODONE HCL TABLET, 5 MG, 1 TO 2 TABLET NEEDED, ORALLY FOR PAIN, EVERY 6 HRS MDD6, 7 DAYS, 42, REFILLS 0 CLINICAL NOTES: ISTOP CHECKED NUMBER [id number]. PROCEDURES PREOPERATIVE DIAGNOSIS: LEFT HIP OSTEOARTHRITIS. HIP PAINPOSTOPERATIVE DIAGNOSIS: LEFT HIP OSTEOARTHRITIS. HIP PAINPROCEDURE: INJECTION OF THE LEFT HIP JOINT UNDER FLUOROSCOPIC GUIDANCESURGEON: COLTEN URBAN: LOCALPREOPERATIVE NOTE: THE PATIENT HAS HISTORY OF LEFT HIP PAIN. I EVALUATE THE PATIENT AND REVIEWED THE CHART. I WENT THROUGH THE RISK ALTERNATIVES AND BENEFITS ASSOCIATED WITH A HIP INJECTION WHICH INCLUDE INFECTIONS, NERVE DAMAGE INJECTION INSIDE OF A BLOOD VESSEL, CARDIOVASCULAR REST. PATIENT EXPRESSED THAT WILL LIKE TO PROCEED. THE PATIENT DENIES UNEXPLAINABLE WEIGHT LOSS FEVER CHILLS NEW CHANGES ON HER MEDICAL CONDITION.PROCEDURE NOTE: AFTER CONSENT WAS REVIEWED WITH THE PATIENT WAS BROUGHT TO THE PROCEDURE ROOM AND PLACED IN THE SUPINE POSITION. THE LEFT INGUINAL AREA WAS CLEANED WITH CHLORAPREP SOLUTION AND DRAPED ASEPTICALLY. PROCEDURE WAS DONE UNDER STERILE CONDITIONS. UNDER FLUOROSCOPIC GUIDANCE A 22-GAUGE SPINAL NEEDLE WAS ADVANCED TO THE LATERAL ASPECT OF THE FEMORAL NECK. I PALPATE AND EVALUATE THE RIGHT INGUINAL AREA .THE POSITION OF THE FEMORAL ARTERY WAS IDENTIFIED. NEEDLE WAS ADVANCED UNDER FLUOROSCOPIC GUIDANCE. AFTER PROPER POSITION OF THE NEEDLE WAS ACHIEVED ISOVUE-M DYE 30% 0.25 ML WAS INJECTED SHOWING ADEQUATE SPREAD OF THE DYE. THEN A SOLUTION OF 3 ML OF BUPIVACAINE 0.125% AND KENALOG 40 MG WAS INJECTED SLOWLY FOLLOWING PATIENT FEEDBACK. THERE WAS NO EVIDENCE OF BLOOD, PARESTHESIA OR ANY OTHER COMPLICATION. PATIENT WAS SENT TO THE RECOVERY ROOM WHERE HE WAS MOVING THE EXTREMITIES. THERE WERE NO COMPLICATIONS DURING THE PROCEDURE. FLUOROSCOPY TIME WAS 55 SECONDS. POSTOPERATIVE NOTE: PATIENT IS GOING TO BE SITTING IN A FOLLOW-UP. WE ARE LOOKING FOR LASTING PAIN RELIEF WITH THIS INTERVENTION. INSTRUCTIONS WERE GIVING, QUESTIONS WERE ANSWERED, THE PATIENT REPORTS UNDERSTANDING AND AGREES WITH THE PLAN. I, LUIS ENRIQUE ANDINO, DOCUMENTED THE ABOVE INFORMATION ACTING A SCRIBE FOR DR. MODI. I HAVE REVIEWED THE ABOVE DOCUMENT, WRITTEN BY LUIS ENRIQUE DAMICOIBDeanna AND I VERIFY THAT IT IS ACCURATE. DIAGNOSTIC IMAGING [facility] FLUORO GUIDANCE (PAIN)[id number] PROCEDURE CODES 6045F RADXPS IN END [id number] PXD [id number] DRAIN/INJ JOINT/BURSA W/O US, MODIFIERS: [place] [id number] NEEDLE LOCALIZATION BY XRAY, MODIFIERS: 26 DISPOSITION & COMMUNICATION FOLLOW UP 3 WEEKS ELECTRONICALLY SIGNED BY MICHAEL MODI MD, MD ON 12/02/2018 AT 05:34 PM EDT DISCLAIMER : THIS IS A VISIT SUMMARY EXTRACTED FROM THE [employer] CHART. IT IS NOT A COPY OF THE [employer] PROGRESS NOTE. MTDD
== END ==
LOC: M PAIN 13:00
PROVIDERS: ATTEND Anesthesiology
DX: M16.12 Unilateral primary osteoarthritis, left hip (principal); I10 Essential (primary) hypertension; F41.9 Anxiety disorder, unspecified; M79.7 Fibromyalgia; F17.210 Nicotine dependence, cigarettes, uncomplicated; E66.01 Morbid (severe) obesity due to excess calories; Z68.41 Body mass index [BMI] 40.0-44.9, adult; Z79.899 Other long term (current) drug therapy; Z88.6 Allergy status to analgesic agent; Z88.8 Allergy status to other drugs, medicaments and biological substances
CPT/HCPCS: 20610; J3301; Q9967

== ENCOUNTER → 2018-11-27 | Outpatient (REF) | payer MEDICARE ==
[~2018-11-27] MED LIST changes: -BUPIVACAINE HCL 0.25% 30 ML VIAL ONE; -ISOVUE-M 300 61% 15ML VIAL (Q9967) ONE; -TRIAMCINOLONE ACETONIDE SUSP 40 MG/ML VIAL (J3301) ONE
[2018-11-27 17:57] LABS: BLOOD UREA NITROGEN 15 MG/DL (7-18); C REACTIVE PROTEIN QUANTITATIV 0.65 MG/DL (0.00-0.30); CARBON DIOXIDE LEVEL 28 MEQ/L (21-32); CHLORIDE LEVEL 104 MEQ/L (98-107); CREATININE FOR GFR 1.11 MG/DL (0.70-1.30); GLOMERULAR FILTRATION RATE > 60.0 (>60); GLUCOSE, FASTING 88 MG/DL (70-100); RHEUMATOID FACTOR QUANT < 10.0 IU/ML (<15.0); SODIUM LEVEL 137 MEQ/L (136-145)
[2018-12-02 00:06] LABS: ANA (HEP2) Negative (.); CYCLIC CITRULLINATED PEPTIDE 11 units (0-19)
== END ==
LOC: M SFHCCLAY 11:30
PROVIDERS: ATTEND Family Medicine
DX: M54.16 Radiculopathy, lumbar region (principal); R21 Rash and other nonspecific skin eruption; R61 Generalized hyperhidrosis
CPT/HCPCS: 80048; 85652; 86038; 86140; 86200; 86431; 99495; G0463

== ENCOUNTER → 2018-11-28 | Outpatient (CLI) | payer MEDICARE | LOC: M PAIN 13:00 | PROVIDERS: ATTEND Anesthesiology | DX: M54.5 Low back pain (principal); Z53.29 Procedure and treatment not carried out because of patient's decision for other reasons ==

== ENCOUNTER → 2019-01-26 | Outpatient (CLI) | payer OTHER, MEDICARE ==
--- NOTE | 2019-02-09 00:01 | ECWPNPC ---
PATIENT NAME: WARREN SANTOS : 1970 GENDER: MALE VISIT DATE: 01/26/2019 DISCHARGE DATE: 01/26/19 1016 VISIT LOCKED DATE TIME: PHYSICIAN: MICHAEL MODI MD RESOURCE: MICHAEL MODI MD REASON FOR APPOINTMENT 1. W/C ARM HISTORY OF PRESENT ILLNESS HISTORY OF PRESENT ILLNESS: PAIN THE PATIENT DESCRIBES THE PAIN... 48 YEAR OLD MALE PATIENT WITH A HISTORY OF CHRONIC RIGHT ARM PAIN. THE PATIENT DESCRIBES THE PAIN ACHING, BURNING, STABBING, SHOOTING, SORE, TENDER, SHARP, AND CONTINUOUS WITH A PAIN SCORE OF 8-10/10 DEPENDING ON PHYSICAL ACTIVITY. THE PATIENT WAS HURT IN A WORK RELATED INJURY ON 02/09/2011 WHEN HE WAS WORKING AT [employer] WHEN A COWORKER STEPPED ON HIS HAND. THE PATIENT SAYS HE ALWAYS COVERS HIS RIGHT ARM TO PROTECT IT. THE PATIENT SAYS HE IS USING GABAPENTIN AND CYMBALTA PAIN RELIEVERS. THE PATIENT STATES THE DCS IMPLANT IS HELPING CONTROL HIS PAIN WELL, HOWEVER HE IS STILL UNABLE TO USE THE ARM. THE PATIENT SAYS WHEN HE STRETCHES OR ABDUCTS HIS RIGHT ARM, IT FEELS LIKE HIS SKIN IS BURNING FROM THE INTENSE PAIN. PATIENT DENIES UNEXPLAINABLE WEIGHT LOSS, FEVER, CHILLS, NEW CHANGES ON HIS URINARY OR BOWEL CONTROL. FALL RISK SCREENING: SCREENING :NO FALLS REPORTED IN THE LAST YEAR CURRENT MEDICATIONS TAKING ATENOLOL 50 MG TABLET 1 TABLET ORALLY DAILY TAKING AMLODIPINE BESYLATE 5 MG TABLET 1 TABLET ORALLY DAILY TAKING DOCUSATE SODIUM 100 MG TABLET 1 TABLET NEEDED FOR CONSTIPATION ORALLY TWICE DAILY TAKING MAY USE - - MEDICAL MARIJUANA ORALLY DIRECTED TAKING LASIX 20 MG TABLET 1 TABLET ORALLY ONCE A DAY NEEDED TAKING HYDROXYZINE HCL 25 MG TABLET 1 TABLET NEEDED ORALLY FOUR TIMES DAILY TAKING NYSTATIN [id number] UNIT/GM CREAM 1 APPLICATION TO AFFECTED AREA EXTERNALLY TWICE A DAY TAKING METOPROLOL SUCCINATE ER 100 MG TABLET EXTENDED RELEASE 24 HOUR 1 TABLET ORALLY ONCE A DAY TAKING GABAPENTIN 600 MG TABLET 1 TAB ORALLY FOR PAIN THREE TIMES DAILY MDD3 TAKING CYMBALTA 60 MG CAPSULE DELAYED RELEASE PARTICLES 1 CAPSULE ORALLY BID NOT-TAKING OXYCODONE HCL 5 MG TABLET 1 TO 2 TABLET NEEDED ORALLY FOR PAIN EVERY 6 HRS MDD6 MEDICATION LIST REVIEWED AND RECONCILED WITH THE PATIENT PAST MEDICAL HISTORY HTN ANXIETY REFLEX SYMPATHETIC DYSTROPHY/COMPLEX REGIONAL PAIN SYNDROME RIGHT UPPER EXTREMITY SPINAL STENOSIS- LUMBAR SACROILIITIS MYALGIA ACUTE RENAL FAILURE ALLERGIES BUSPIRONE HCL: FACIAL RASH, SWELLING, HIVES - ALLERGY IBUPROFEN: ACUTE RENAL FAILURE - ALLERGY LISINOPRIL: ACUTE RENAL FAILURE - ALLERGY CHLORTHALIDONE: RASH/FOLLICULITIS - SIDE EFFECTS SURGICAL HISTORY LAMINECTOMY/DISCECTOMY L1-S1 04/2015 DCS- CERVICAL 07/2011 INGUINAL HERNIA REPAIR GROIN LYMPH NODE EXCISION RIGHT HAND- SCREWS/PLATE 2001 ARTHROSCOPIC KNEE SURGERY DENTAL EXTRACTIONS DORSAL COLUMN STIMULATOR- THORACIC/LUMBAR- DR BURGESS 02/2017 FAMILY HISTORY FATHER: ALIVE, DIAGNOSED WITH HYPERTENSION MOTHER: ALIVE, HYPERTENSION, HEART DISEASE, DIABETES PATERNAL GRAND FATHER: HEART DISEASE PATERNAL GRAND MOTHER: DIABETES 2 SON(S) - HEALTHY. SOCIAL HISTORY GENERAL: TOBACCO USE ARE YOU A:CURRENT SMOKER ARE YOU INTERESTED IN QUITTING?NOT READY TO QUIT COUNSELED THE PATIENT ON SMOKING EFFECTS, EDUCATION [id number]/18/2019 HOW MANY CIGARETTES A DAY DO YOU SMOKE?11-20 HOW SOON AFTER YOU WAKE UP DO YOU SMOKE YOUR FIRST CIGARETTE?6-30 MIN HOW OFTEN DO YOU SMOKE CIGARETTES?EVERY DAY PATIENT COUNSELED ON THE DANGERS OF TOBACCO USE AND URGED TO QUIT:01/26/2019 ADDITIONAL FINDINGS: TOBACCO USERMODERATE CIGARETTE SMOKER (10-19 CIGS/DAY) SMOKING CESSATION INFORMATION GIVEN11/27/2018 11/04/18 PT DECLINED HIV / HEP-C SCREENING HIV TEST OFFERED TO PATIENT:YES DATE OFFERED:11/27/2018 TEST ACCEPTED:NO HEP-C TEST OFFERED TO PATIENT:NO REASON:PATIENT DECLINED BROCHURE PROVIDED TO PATIENTNO OTHERS AT HOME: SPOUSE, CHILDREN. DIET: REGULAR. LANGUAGE LANGUAGES SPOKEN:TELUGU DOMESTIC VIOLENCE DO YOU FEEL SAFE IN YOUR ENVIRONMENT?YES BMI CARE GOAL FOLLOW-UP ABOVE NORMAL BMI FOLLOW-UPDIETARY MANAGEMENT EDUCATION, GUIDANCE, AND COUNSELING RECREATIONAL DRUG USE DRUG USE?NO EXERCISE: NO REGULAR EXERCISE. LEARNING BARRIERS / SPECIAL NEEDS CHANGE FROM LAST VISIT?NO BARRIERS TO LEARNING?NO HEARING IMPAIRED?NO VISION IMPAIRED?YES COGNITIVELY IMPAIRED?NO :CORRECTIVE LENSES WEARS READING GLASSES SOMETIMES READINESS TO LEARN?YES LEARNING PREFERENCES?NO LEARNING CAPABILITIES PRESENT?YES EMOTIONAL BARRIERS?NO SPECIAL DEVICES?NO ART OBJECTS SUPERVISOR NEEDED?NO PAIN CLINIC PFS, CLERGY, PUBLIC HEALTH REFERRALS PFS REFERRAL NEEDED?NO CLERGY REFERRAL NEEDED?NO PUBLIC HEALTH REFERRAL NEEDED?NO WAS THE PROVIDER NOTIFIED OF ANY PERTINENT INFO? N/A HAS THE PATIENT BEEN EDUCATED REGARDING HIS/HER PLAN OF CARE?YES HAS THE PATIENT BEEN EDUCATED REGARDING PAIN, THE RISK FOR PAIN, THE IMPORTANCE OF EFFECTIVE PAIN MANAGEMENT, AND THE PAIN ASSESSMENT PROCESS?YES LATEX QUESTIONNAIRE LATEX ALLERGY : HAVE YOU EVER DEVELOPED ANY TYPE OF REACTION AFTER HANDLING LATEX PRODUCTS SUCH RUBBER GLOVES, CONDOMS, DIAPHRAGMS, BALLOONS, SOCKS, OR UNDERWEAR?NO LATEX ALLERGY : HAVE YOU EVER DEVELOPED ANY TYPE OF REACTION DURING OR AFTER DENTAL APPOINTMENT, VAGINAL/RECTAL EXAMINATION, SURGICAL PROCEDURE, OR ANY OTHER EXPOSURE?NO LATEX RISK : HAVE YOU EVER HAD ANY DIFFICULTY BREATHING OR HIVES AFTER EATING OR HANDLING ANY FRUITS, OR VEGETABLES; SUCH KIWI, BANANAS, STONE FRUITS, OR CHESTNUTSNO LATEX RISK : DO YOU HAVE A PREVIOUS PERSONAL HISTORY OF MORE THAN NINE SURGERIES, SPINA BIFIDA, OR REPEATED CATHERTIZATIONS? NO LATEX RISK : ARE YOU FREQUENTLY EXPOSED TO LATEX PRODUCTS IN YOUR OCCUPATION?NO DATE ASKED : 01/26/2019 CAFFEINE CAFFEINE USE?YES HOW OFTEN AND HOW MUCH? 2 COFFEES DAILY ADVANCE DIRECTIVE ADVANCE DIRECTIVE DISCUSSED WITH PATIENT:YES PT. DOES NOT HAVE ANY ADVANCED DIRECTIVES AND HE DECLINED INFORAMTION ON HCP AT THIS TIME SYNAGOGUE [id number] ZOROASTRIANISM NO LATTER DAY BELIEFS THAT WOULD IMPACT HEALTH CARE. MARITAL STATUS: SINGLE. ALCOHOL SCREENING DID YOU HAVE A DRINK CONTAINING ALCOHOL IN THE PAST YEAR?NO POINTS0 INTERPRETATIONNEGATIVE OCCUPATION: DISABLED. HOSPITALIZATION/MAJOR DIAGNOSTIC PROCEDURE SURGERIES ACUTE RENAL FAILURE 03/2016 [facility]-LEFT HIP PAIN 10/2018 REVIEW OF SYSTEMS REVIEWED BY: PROVIDER: MICHAEL MODI MD . CONSTITUTIONAL: ANY CHANGE IN YOUR MEDICAL CONDITION? NO . CHILLS NO . FEVER NO . INFECTION: DO YOU HAVE NEW INFECTIONS? NO . DO YOU HAVE HISTORY OF MRSA? NO . MUSCULOSKELETAL: ANY NEW PATTERNS OF PAIN OR NUMBNESS? NO . GASTROENTEROLOGY: ANY NEW CHANGE IN BOWEL CONTROL? NO . GENITOURINARY: ANY NEW CHANGE IN BLADDER CONTROL? NO . IS THERE A CHANCE YOU COULD BE ? NO . HEMATOLOGY/LYMPH: DO YOU TAKE ANY BLOOD THINNERS? (FOR EXAMPLE- COUMADIN, PLAVIX, AGGRENOX, PLATEL, PRADAXA, OR XARELTO) NO . WHEN WAS YOUR LAST DOSE? DATE: TIME: . NEUROLOGY: HAVE YOU FALLEN IN THE PAST 12 MONTHS? PT STATES THAT HE FELL IN OCTOBER WHILE AT HOME, UNSTEADY GAIT, REPORTED TO HOSPITAL NEXT DAY. . ANY NEW EXTREMITY NUMBNESS OR WEAKNESS? NO . CARDIOLOGY: DO YOU HAVE A PACEMAKER OR DEFIBRILLATOR? NO . RESPIRATORY: HAVE YOU BEEN SICK IN THE PAST WEEK? NO . FEVER NO . FLU LIKE SYMPTOMS? NO . COUGH NO . INTEGUMENTARY: DO YOU HAVE ANY RASHES OR OPEN SORES? NO . ALLERGIC/IMMUNO: ARE YOU ALLERGIC TO IV DYE? NO . ANY NEW ALLERGIES? NO . PSYCHIATRIC: DO YOU HAVE THOUGHTS OF HURTING YOURSELF OR SOMEONE ELSE? NO . ARE YOU ABUSED, NEGLECTED, OR IN AN UNSAFE ENVIRONMENT? NO . ENDOCRINOLOGY: ARE YOU DIABETIC? NO . OTHER: DO YOU NEED ANY PRESCRIPTIONS? GABAPENTIN, CYMBALTA . IF YES, PLEASE LIST: ____ . ANY NEW PROBLEMS WITH YOUR MEDICATIONS? NO . WHEN DID YOU LAST EAT? ____ . WHEN DID YOU LAST DRINK? ____ . WHAT DID YOU LAST DRINK? ____ . NAME OF PERSON DRIVING YOU HOME? ____ . DO YOU HAVE ANY OTHER QUESTIONS OR CONCERNS NO . VITAL SIGNS WT 298.6 LBS, HT 69 IN, BMI 44.09 INDEX, BP 142/86 MM HG, HR 62 /MIN, RR 18 /MIN, TEMP 97.5 F, OXYGEN SAT % 91%, SAFE IN ENV? (Y/N) Y, NA INITIALS AW 0904, REVIEWED BY: BRIANNE. EXAMINATION GENERAL EXAMINATION: PATIENT IS ALERT O X 3 AND COOPERATIVE. PATIENT IS GUARDING HIS RIGHT ARM AND COVERS WITH SLEEVE. PATIENT CANNOT ABDUCT RIGHT ARM. ALLODYNIA OVER RIGHT ARM. 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 SANTOS'S PAIN MANAGEMENT CASE. THE PATIENT WILL CONTINUE WITH HIS CURRENT MEDICATION REGIMEN OF GABAPENTIN 600 MG 3 TABLETS DAILY AND CYMBALTA 60 MG 2 CAPSULES DAILY TO HELP CONTROL HIS NEUROPATHIC PAIN, WHICH I REFILLED TODAY. THE PATIENT HAD A DCS ADJUSTMENT DONE WHILE HE WAS IN THE HOSPITAL A FEW MONTHS AGO, AND HE IS NOW DEALING WITH THE SETTINGS TO FIND ADEQUATE RELIEF. THE PATIENT WILL FOLLOW UP IN 6 WEEKS. INSTRUCTIONS WERE GIVEN, QUESTIONS WERE ANSWERED, PATIENT REPORTS UNDERSTANDING AND AGREES WITH THE PLAN. I, PORSCHE LOVE, DOCUMENTED THE ABOVE INFORMATION ACTING A SCRIBE FOR DR. MODI. I HAVE REVIEWED THE ABOVE DOCUMENT, WRITTEN BY PORSCHE LOVE SCRIBE AND I VERIFY THAT IT IS ACCURATE. . OTHERS REFILL GABAPENTIN TABLET, 600 MG, 1 TAB, ORALLY FOR PAIN, THREE TIMES DAILY MDD3, 30 DAYS, 90, REFILLS 2 REFILL CYMBALTA CAPSULE DELAYED RELEASE PARTICLES, 60 MG, 1 CAPSULE, ORALLY, BID, 30 DAY(S), 60 CAPSULE, REFILLS 2 PROCEDURES PN WORKMANS' COMP OPINION IN YOUR OPINION, WAS THE INCIDENT THAT THE PATIENT DESCRIBED THE COMPETENT MEDICAL CAUSE OF THIS INJURY/ILLNESS? YES ARE THE PATIENT'S COMPLAINTS CONSISTENT WITH HIS/HER HISTORY OF THE INJURY/ILLNESS? YES IS THE PATIENT'S HISTORY OF THE INJURY/ILLNESS CONSISTENT WITH YOUR OBJECTIVE FINDING? YES WHAT IS THE PERCENTAGE OF TEMPORARY IMPAIRMENT? TOTAL = 100% IS THE PATIENT WORKING? NO DOCTOR ON SITE: MICHAEL VICTOR MD PROCEDURE CODES FA211 ESTABILISHED PATIENT [facility] FACILITY CHARGE G8427 CURRENT MEDS W/DOSAGES DOCUMENTED G8730 PAIN ASSESS POS TOOL F/U PLAN DOC DISPOSITION & COMMUNICATION FOLLOW UP 6 WEEKS (REASON: MEDS) ELECTRONICALLY SIGNED BY MICHAEL MODI MD, MD ON 02/08/2019 AT 07:03 PM EDT DISCLAIMER : THIS IS A VISIT SUMMARY EXTRACTED FROM THE [employer] CHART. IT IS NOT A COPY OF THE [employer] PROGRESS NOTE. AILEEND
== END ==
LOC: M PAIN 09:00
PROVIDERS: ATTEND Anesthesiology
DX: M79.2 Neuralgia and neuritis, unspecified (principal); I10 Essential (primary) hypertension; F41.9 Anxiety disorder, unspecified; M48.061 Spinal stenosis, lumbar region without neurogenic claudication; M79.10 Myalgia, unspecified site; M53.3 Sacrococcygeal disorders, not elsewhere classified; F17.210 Nicotine dependence, cigarettes, uncomplicated; Z79.899 Other long term (current) drug therapy; Z88.8 Allergy status to other drugs, medicaments and biological substances

== ENCOUNTER → 2019-02-03 | Outpatient (CLI) | payer MEDICARE, SELFPAY ==
[~2019-02-03] MED LIST changes: -DULO1CAP2 PO; +DULO1CAP5 PO
--- NOTE | 2019-02-12 00:14 | ECWPNPC ---
PATIENT NAME: WARREN SANTOS : 1970 GENDER: MALE VISIT DATE: 02/03/2019 DISCHARGE DATE: 02/03/19 1546 VISIT LOCKED DATE TIME: PHYSICIAN: MICHAEL MODI MD RESOURCE: MICHAEL MODI MD REASON FOR APPOINTMENT 1. LBP HISTORY OF PRESENT ILLNESS GENERAL: 48 YEAR OLD MALE PATIENT WITH A HISTORY OF CHRONIC LOW BACK PAIN. THE PATIENT DESCRIBES THE PAIN ACHING, BURNING, STABBING, SHOOTING, SORE, TENDER, SHARP, AND CONTINUOUS WITH A PAIN SCORE OF 6-10/10 DEPENDING ON HYSICAL ACTIVITY. THE PATIENT STATES THE PAIN IS MAINLY IN HIS LOWER BACK WITH SPASTICITY OF THE LOWER EXTREMITIES ON A DAILY BASIS. THE PATIENT SAYS HE HAS HAD THIS PAIN FOR MANY YEARS AND CONTROLS IT WITH MEDICATION AND A DCS IMPLANT. PATIENT DENIES UNEXPLAINABLE WEIGHT LOSS, FEVER, CHILLS, NEW CHANGES ON HIS URINARY OR BOWEL CONTROL. CURRENT MEDICATIONS TAKING GABAPENTIN 600 MG TABLET 1 TAB ORALLY FOR PAIN THREE TIMES DAILY MDD3 TAKING CYMBALTA 60 MG CAPSULE DELAYED RELEASE PARTICLES 1 CAPSULE ORALLY BID TAKING ATENOLOL 50 MG TABLET 1 TABLET ORALLY DAILY TAKING AMLODIPINE BESYLATE 5 MG TABLET 1 TABLET ORALLY DAILY TAKING DOCUSATE SODIUM 100 MG TABLET 1 TABLET NEEDED FOR CONSTIPATION ORALLY TWICE DAILY TAKING MAY USE - - MEDICAL MARIJUANA ORALLY DIRECTED TAKING LASIX 20 MG TABLET 1 TABLET ORALLY ONCE A DAY NEEDED TAKING HYDROXYZINE HCL 25 MG TABLET 1 TABLET NEEDED ORALLY FOUR TIMES DAILY TAKING METOPROLOL SUCCINATE ER 100 MG TABLET EXTENDED RELEASE 24 HOUR 1 TABLET ORALLY ONCE A DAY NOT-TAKING NYSTATIN [id number] UNIT/GM CREAM 1 APPLICATION TO AFFECTED AREA EXTERNALLY TWICE A DAY NOT-TAKING OXYCODONE HCL 5 MG TABLET 1 TO 2 TABLET NEEDED ORALLY FOR PAIN EVERY 6 HRS MDD6 MEDICATION LIST REVIEWED AND RECONCILED WITH THE PATIENT PAST MEDICAL HISTORY HTN ANXIETY REFLEX SYMPATHETIC DYSTROPHY/COMPLEX REGIONAL PAIN SYNDROME RIGHT UPPER EXTREMITY SPINAL STENOSIS- LUMBAR SACROILIITIS MYALGIA ACUTE RENAL FAILURE ALLERGIES BUSPIRONE HCL: FACIAL RASH, SWELLING, HIVES - ALLERGY IBUPROFEN: ACUTE RENAL FAILURE - ALLERGY LISINOPRIL: ACUTE RENAL FAILURE - ALLERGY CHLORTHALIDONE: RASH/FOLLICULITIS - SIDE EFFECTS SURGICAL HISTORY LAMINECTOMY/DISCECTOMY L1-S1 04/2015 DCS- CERVICAL 07/2011 INGUINAL HERNIA REPAIR GROIN LYMPH NODE EXCISION RIGHT HAND- SCREWS/PLATE 2001 ARTHROSCOPIC KNEE SURGERY DENTAL EXTRACTIONS DORSAL COLUMN STIMULATOR- THORACIC/LUMBAR- DR BURGESS 02/2017 FAMILY HISTORY FATHER: ALIVE, DIAGNOSED WITH HYPERTENSION MOTHER: ALIVE, HEART DISEASE, DIABETES, HYPERTENSION PATERNAL GRAND FATHER: HEART DISEASE PATERNAL GRAND MOTHER: DIABETES 2 SON(S) - HEALTHY. SOCIAL HISTORY GENERAL: TOBACCO USE ARE YOU A:CURRENT SMOKER HOW OFTEN DO YOU SMOKE CIGARETTES?EVERY DAY HOW SOON AFTER YOU WAKE UP DO YOU SMOKE YOUR FIRST CIGARETTE?6-30 MIN HOW MANY CIGARETTES A DAY DO YOU SMOKE?11-20 ARE YOU INTERESTED IN QUITTING?NOT READY TO QUIT ADDITIONAL FINDINGS: TOBACCO USERMODERATE CIGARETTE SMOKER (10-19 CIGS/DAY) PATIENT COUNSELED ON THE DANGERS OF TOBACCO USE AND URGED TO QUIT:01/26/2019 COUNSELED THE PATIENT ON SMOKING EFFECTS, EDUCATION [id number]/18/2019 SMOKING CESSATION INFORMATION GIVEN11/27/2018 11/04/18 PT DECLINED HIV / HEP-C SCREENING HIV TEST OFFERED TO PATIENT:YES DATE OFFERED:11/27/2018 TEST ACCEPTED:NO HEP-C TEST OFFERED TO PATIENT:NO REASON:PATIENT DECLINED BROCHURE PROVIDED TO PATIENTNO OTHERS AT HOME: SPOUSE, CHILDREN. DIET: REGULAR. LANGUAGE LANGUAGES SPOKEN:GERMAN DOMESTIC VIOLENCE DO YOU FEEL SAFE IN YOUR ENVIRONMENT?YES BMI CARE GOAL FOLLOW-UP ABOVE NORMAL BMI FOLLOW-UPDIETARY MANAGEMENT EDUCATION, GUIDANCE, AND COUNSELING RECREATIONAL DRUG USE DRUG USE?NO EXERCISE: NO REGULAR EXERCISE. LEARNING BARRIERS / SPECIAL NEEDS CHANGE FROM LAST VISIT?NO BARRIERS TO LEARNING?NO HEARING IMPAIRED?NO VISION IMPAIRED?YES COGNITIVELY IMPAIRED?NO :CORRECTIVE LENSES WEARS READING GLASSES SOMETIMES READINESS TO LEARN?YES LEARNING PREFERENCES?NO LEARNING CAPABILITIES PRESENT?YES EMOTIONAL BARRIERS?NO SPECIAL DEVICES?NO STRIKER OUT NEEDED?NO PAIN CLINIC PFS, CLERGY, PUBLIC HEALTH REFERRALS PFS REFERRAL NEEDED?NO CLERGY REFERRAL NEEDED?NO PUBLIC HEALTH REFERRAL NEEDED?NO WAS THE PROVIDER NOTIFIED OF ANY PERTINENT INFO? N/A HAS THE PATIENT BEEN EDUCATED REGARDING HIS/HER PLAN OF CARE?YES HAS THE PATIENT BEEN EDUCATED REGARDING PAIN, THE RISK FOR PAIN, THE IMPORTANCE OF EFFECTIVE PAIN MANAGEMENT, AND THE PAIN ASSESSMENT PROCESS?YES LATEX QUESTIONNAIRE LATEX ALLERGY : HAVE YOU EVER DEVELOPED ANY TYPE OF REACTION AFTER HANDLING LATEX PRODUCTS SUCH RUBBER GLOVES, CONDOMS, DIAPHRAGMS, BALLOONS, SOCKS, OR UNDERWEAR?NO LATEX ALLERGY : HAVE YOU EVER DEVELOPED ANY TYPE OF REACTION DURING OR AFTER DENTAL APPOINTMENT, VAGINAL/RECTAL EXAMINATION, SURGICAL PROCEDURE, OR ANY OTHER EXPOSURE?NO DATE ASKED : 01/26/2019 LATEX RISK : HAVE YOU EVER HAD ANY DIFFICULTY BREATHING OR HIVES AFTER EATING OR HANDLING ANY FRUITS, OR VEGETABLES; SUCH KIWI, BANANAS, STONE FRUITS, OR CHESTNUTSNO LATEX RISK : DO YOU HAVE A PREVIOUS PERSONAL HISTORY OF MORE THAN NINE SURGERIES, SPINA BIFIDA, OR REPEATED CATHERTIZATIONS? NO LATEX RISK : ARE YOU FREQUENTLY EXPOSED TO LATEX PRODUCTS IN YOUR OCCUPATION?NO CAFFEINE CAFFEINE USE?YES HOW OFTEN AND HOW MUCH? 2 COFFEES DAILY ADVANCE DIRECTIVE ADVANCE DIRECTIVE DISCUSSED WITH PATIENT:YES PT. DOES NOT HAVE ANY ADVANCED DIRECTIVES AND HE DECLINED INFORAMTION ON HCP AT THIS TIME CHEONDOISM [id number] JAINISM NO YAZIDI BELIEFS THAT WOULD IMPACT HEALTH CARE. MARITAL STATUS: SINGLE. ALCOHOL SCREENING DID YOU HAVE A DRINK CONTAINING ALCOHOL IN THE PAST YEAR?NO POINTS0 INTERPRETATIONNEGATIVE OCCUPATION: DISABLED. HOSPITALIZATION/MAJOR DIAGNOSTIC PROCEDURE SURGERIES ACUTE RENAL FAILURE 03/2016 [facility]-LEFT HIP PAIN 10/2018 REVIEW OF SYSTEMS REVIEWED BY: PROVIDER: MICHAEL MODI MD . VITAL SIGNS WT 298.2 LBS, HT 69 IN, BMI 44.03 INDEX, BP 140/72 MM HG, HR 82 /MIN, RR 18 /MIN, TEMP 97.6 F, OXYGEN SAT % 95%, NA INITIALS AW 1509, REVIEWED BY: LS. EXAMINATION GENERAL: PATIENT IS ALERT O X 3 AND COOPERATIVE. TENDERNESS IN THE LOW BACK OVER THE SACROILIAC JOINT. FABERE TEST IS POSITIVE FOR THE LEFT SACROILIAC JOINT DYSFUNCTION. CT SCAN OF THE LUMBAR SPINE DONE ON 04/12/2015 SHOWS LAMINECTOMY CHANGES. ASSESSMENTS SACROILIITIS, NOT ELSEWHERE CLASSIFIED - M46.1 (PRIMARY) LOW BACK PAIN - M54.5 OTHER CHRONIC PAIN - G89.29 SACROILIAC JOINT DYSFUNCTION - M53.3 TREATMENT SACROILIITIS, NOT ELSEWHERE CLASSIFIED CLINICAL NOTES: WE DISCUSSED SEVERAL ISSUES WITH MR. SANTOS'S PAIN MANAGEMENT CASE. DUE TO THE SACROILIAC JOINT DYSFUNCTION, I WOULD LIKE TO MOVE FORWARD WITH A SACROILIAC JOINT BLOCK AT THIS TIME. WE DISCUSSED THE BENEFITS, RISKS, AND ALTERNATIVES OF THE INJECTION AND THE PATIENT WOULD LIKE TO PROCEED. I WILL START THE PATIENT ON TIZANIDINE 2 MG 1 TABLET NEEDED UP TO 3 PER DAY AND 70 FOR THE MONTH TO HELP WITH PAIN AND SPASTICITY. THE PATIENT WILL FOLLOW UP IN SEVERAL WEEKS WITH THE NURSE PRACTITIONER. INSTRUCTIONS WERE GIVEN, QUESTIONS WERE ANSWERED, PATIENT REPORTS UNDERSTANDING AND AGREES WITH THE PLAN. I, PORSCHE LOVE, DOCUMENTED THE ABOVE INFORMATION ACTING A SCRIBE FOR DR. MODI. I HAVE REVIEWED THE ABOVE DOCUMENT, WRITTEN BY PORSCHE LOVE SCRIBDeanna AND I VERIFY THAT IT IS ACCURATE. . PREVENTIVE MEDICINE PAIN CLINIC TEACHING: MEDICATIONS PRE-PROCEDURE INSTRUCTIONS REVIEWED WITH PT. NEW PRESCRIPTION TO BE WRITTEN FOR TIZANIDINE. WRITTEN INFORMATION DECLINED.. PROCEDURE CODES FA211 ESTABILISHED PATIENT [facility] CHARGE G8427 CURRENT MEDS W/DOSAGES DOCUMENTED G8730 PAIN ASSESS POS TOOL F/U PLAN DOC DISPOSITION & COMMUNICATION FOLLOW UP 3 WEEKS (REASON: FU WITH YARD CLERK, MEDS) ELECTRONICALLY SIGNED BY MICHAEL MODI MD, ON 02/11/2019 AT 12:57 PM EDT DISCLAIMER : THIS IS A VISIT SUMMARY EXTRACTED FROM THE [employer] CHART. IT IS NOT A COPY OF THE [employer] PROGRESS NOTE. IMMANUEL
== END ==
LOC: M PAIN 15:15
PROVIDERS: ATTEND Anesthesiology
DX: G89.29 Other chronic pain (principal); M46.1 Sacroiliitis, not elsewhere classified; M54.5 Low back pain; M53.3 Sacrococcygeal disorders, not elsewhere classified; I10 Essential (primary) hypertension; F41.9 Anxiety disorder, unspecified; M48.061 Spinal stenosis, lumbar region without neurogenic claudication; M79.10 Myalgia, unspecified site; G90.511 Complex regional pain syndrome I of right upper limb; F17.210 Nicotine dependence, cigarettes, uncomplicated; Z79.899 Other long term (current) drug therapy; Z88.6 Allergy status to analgesic agent; Z88.8 Allergy status to other drugs, medicaments and biological substances

== ENCOUNTER → 2019-02-24 | Outpatient (CLI) | payer MEDICARE, SELFPAY ==
--- NOTE | 2019-02-25 00:55 | ECWPNPC ---
PATIENT NAME: WARREN SANTOS : 1970 GENDER: MALE VISIT DATE: 02/24/2019 DISCHARGE DATE: 02/24/19 0938 VISIT LOCKED DATE TIME: PHYSICIAN: LAYLA YAP RESOURCE: LAYLA YAP REASON FOR APPOINTMENT 1. [address] Michelle CISNEROS HISTORY OF PRESENT ILLNESS HISTORY OF PRESENT ILLNESS: 48 YEAR OLD MALE PATIENT WITH A HISTORY OF CHRONIC LOW BACK PAIN. THE PATIENT DESCRIBES THE PAIN ACHING, BURNING, STABBING, SHOOTING, SORE, TENDER, SHARP, AND CONTINUOUS WITH A PAIN SCORE OF 6-10/10 DEPENDING ON PHYSICAL ACTIVITY. THE PATIENT STATES THE PAIN IS MAINLY IN HIS LOWER BACK WITH SPASTICITY OF THE LOWER EXTREMITIES ON A DAILY BASIS. THE PATIENT SAYS HE HAS HAD THIS PAIN FOR MANY YEARS AND CONTROLS IT WITH MEDICATION AND A DCS IMPLANT. PAIN THE PATIENT DESCRIBES THE PAIN... FALL RISK SCREENING: SCREENING :NO FALLS REPORTED IN THE LAST YEAR CURRENT MEDICATIONS TAKING TIZANIDINE HCL 2 MG TABLET 1 TABLET NEEDED ORALLY FOR SPASMS AND PAIN THREE TIMES A DAY MDD3 TAKING GABAPENTIN 600 MG TABLET 1 TAB ORALLY FOR PAIN THREE TIMES DAILY MDD3 TAKING CYMBALTA 60 MG CAPSULE DELAYED RELEASE PARTICLES 1 CAPSULE ORALLY BID TAKING ATENOLOL 50 MG TABLET 1 TABLET ORALLY DAILY TAKING AMLODIPINE BESYLATE 5 MG TABLET 1 TABLET ORALLY DAILY TAKING DOCUSATE SODIUM 100 MG TABLET 1 TABLET NEEDED FOR CONSTIPATION ORALLY TWICE DAILY TAKING MAY USE - - MEDICAL MARIJUANA ORALLY DIRECTED TAKING LASIX 20 MG TABLET 1 TABLET ORALLY ONCE A DAY NEEDED TAKING HYDROXYZINE HCL 25 MG TABLET 1 TABLET NEEDED ORALLY FOUR TIMES DAILY TAKING METOPROLOL SUCCINATE ER 100 MG TABLET EXTENDED RELEASE 24 HOUR 1 TABLET ORALLY ONCE A DAY TAKING NYSTATIN 152909 UNIT/GM CREAM 1 APPLICATION TO AFFECTED AREA EXTERNALLY TWICE A DAY NOT-TAKING OXYCODONE HCL 5 MG TABLET 1 TO 2 TABLET NEEDED ORALLY FOR PAIN EVERY 6 HRS MDD6 MEDICATION LIST REVIEWED AND RECONCILED WITH THE PATIENT PAST MEDICAL HISTORY HTN ANXIETY REFLEX SYMPATHETIC DYSTROPHY/COMPLEX REGIONAL PAIN SYNDROME RIGHT UPPER EXTREMITY SPINAL STENOSIS- LUMBAR SACROILIITIS MYALGIA ACUTE RENAL FAILURE CHRONIC PAIN ALLERGIES BUSPIRONE HCL: FACIAL RASH, SWELLING, HIVES - ALLERGY IBUPROFEN: ACUTE RENAL FAILURE - ALLERGY LISINOPRIL: ACUTE RENAL FAILURE - ALLERGY CHLORTHALIDONE: RASH/FOLLICULITIS - SIDE EFFECTS SURGICAL HISTORY LAMINECTOMY/DISCECTOMY L1-S1 04/2015 DCS- CERVICAL 07/2011 INGUINAL HERNIA REPAIR GROIN LYMPH NODE EXCISION RIGHT HAND- SCREWS/PLATE 2001 ARTHROSCOPIC KNEE SURGERY DENTAL EXTRACTIONS DORSAL COLUMN STIMULATOR- THORACIC/LUMBAR- DR BURGESS 02/2017 FAMILY HISTORY FATHER: ALIVE, DIAGNOSED WITH HYPERTENSION MOTHER: ALIVE, DIABETES, HYPERTENSION, HEART DISEASE PATERNAL GRAND FATHER: HEART DISEASE PATERNAL GRAND MOTHER: DIABETES 2 SON(S) - HEALTHY. SOCIAL HISTORY GENERAL: TOBACCO USE ARE YOU A:CURRENT SMOKER ARE YOU INTERESTED IN QUITTING?NOT READY TO QUIT COUNSELED THE PATIENT ON SMOKING EFFECTS, EDUCATION [id number]/16/2019 HOW MANY CIGARETTES A DAY DO YOU SMOKE?11-20 HOW SOON AFTER YOU WAKE UP DO YOU SMOKE YOUR FIRST CIGARETTE?6-30 MIN HOW OFTEN DO YOU SMOKE CIGARETTES?EVERY DAY PATIENT COUNSELED ON THE DANGERS OF TOBACCO USE AND URGED TO QUIT:02/24/2019 ADDITIONAL FINDINGS: TOBACCO USERMODERATE CIGARETTE SMOKER (10-19 CIGS/DAY) SMOKING CESSATION INFORMATION GIVEN11/27/2018 11/04/18 PT DECLINED HIV / HEP-C SCREENING HIV TEST OFFERED TO PATIENT:YES DATE OFFERED:11/27/2018 TEST ACCEPTED:NO HEP-C TEST OFFERED TO PATIENT:NO REASON:PATIENT DECLINED BROCHURE PROVIDED TO PATIENTNO OTHERS AT HOME: SPOUSE, CHILDREN. DIET: REGULAR. LANGUAGE LANGUAGES SPOKEN:[place]IZ[place] DOMESTIC VIOLENCE DO YOU FEEL SAFE IN YOUR ENVIRONMENT?YES BMI CARE GOAL FOLLOW-UP ABOVE NORMAL BMI FOLLOW-UPDIETARY MANAGEMENT EDUCATION, GUIDANCE, AND COUNSELING RECREATIONAL DRUG USE DRUG USE?NO EXERCISE: NO REGULAR EXERCISE. LEARNING BARRIERS / SPECIAL NEEDS CHANGE FROM LAST VISIT?NO BARRIERS TO LEARNING?NO HEARING IMPAIRED?NO VISION IMPAIRED?YES COGNITIVELY IMPAIRED?NO :CORRECTIVE LENSES WEARS READING GLASSES SOMETIMES READINESS TO LEARN?YES LEARNING PREFERENCES?NO LEARNING CAPABILITIES PRESENT?YES EMOTIONAL BARRIERS?NO SPECIAL DEVICES?NO POULTRY TRIMMER NEEDED?NO PAIN CLINIC PFS, CLERGY, PUBLIC HEALTH REFERRALS PFS REFERRAL NEEDED?NO CLERGY REFERRAL NEEDED?NO PUBLIC HEALTH REFERRAL NEEDED?NO WAS THE PROVIDER NOTIFIED OF ANY PERTINENT INFO? N/A HAS THE PATIENT BEEN EDUCATED REGARDING HIS/HER PLAN OF CARE?YES HAS THE PATIENT BEEN EDUCATED REGARDING PAIN, THE RISK FOR PAIN, THE IMPORTANCE OF EFFECTIVE PAIN MANAGEMENT, AND THE PAIN ASSESSMENT PROCESS?YES LATEX QUESTIONNAIRE LATEX ALLERGY : HAVE YOU EVER DEVELOPED ANY TYPE OF REACTION AFTER HANDLING LATEX PRODUCTS SUCH RUBBER GLOVES, CONDOMS, DIAPHRAGMS, BALLOONS, SOCKS, OR UNDERWEAR?NO LATEX ALLERGY : HAVE YOU EVER DEVELOPED ANY TYPE OF REACTION DURING OR AFTER DENTAL APPOINTMENT, VAGINAL/RECTAL EXAMINATION, SURGICAL PROCEDURE, OR ANY OTHER EXPOSURE?NO LATEX RISK : HAVE YOU EVER HAD ANY DIFFICULTY BREATHING OR HIVES AFTER EATING OR HANDLING ANY FRUITS, OR VEGETABLES; SUCH KIWI, BANANAS, STONE FRUITS, OR CHESTNUTSNO LATEX RISK : DO YOU HAVE A PREVIOUS PERSONAL HISTORY OF MORE THAN NINE SURGERIES, SPINA BIFIDA, OR REPEATED CATHERTIZATIONS? NO LATEX RISK : ARE YOU FREQUENTLY EXPOSED TO LATEX PRODUCTS IN YOUR OCCUPATION?NO DATE ASKED : 01/26/2019 CAFFEINE CAFFEINE USE?YES HOW OFTEN AND HOW MUCH? 2 COFFEES DAILY ADVANCE DIRECTIVE ADVANCE DIRECTIVE DISCUSSED WITH PATIENT:YES PT. 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 MARITAL STATUS: SINGLE. ALCOHOL SCREENING DID YOU HAVE A DRINK CONTAINING ALCOHOL IN THE PAST YEAR?NO POINTS0 INTERPRETATIONNEGATIVE OCCUPATION: DISABLED. REVIEWED WITH PATIENT 02/24/19 0859 JS. HOSPITALIZATION/MAJOR DIAGNOSTIC PROCEDURE SURGERIES ACUTE RENAL FAILURE 03/2016 [facility]-LEFT HIP PAIN 10/2018 REVIEW OF SYSTEMS REVIEWED BY: PROVIDER: HARVEY YAP BACK WINDER-C . CONSTITUTIONAL: ANY CHANGE IN YOUR MEDICAL CONDITION? NO . CHILLS NO . FEVER NO . INFECTION: DO YOU HAVE NEW INFECTIONS? NO . DO YOU HAVE HISTORY OF MRSA? NO . MUSCULOSKELETAL: ANY NEW PATTERNS OF PAIN OR NUMBNESS? YES, STATES PAIN AND NUMBNESS WORSE IN LOW BACK AND LEFT LEG WORSENING AGAIN . GASTROENTEROLOGY: ANY NEW CHANGE IN BOWEL CONTROL? NO . GENITOURINARY: ANY NEW CHANGE IN BLADDER CONTROL? NO . IS THERE A CHANCE YOU COULD BE ? NO . HEMATOLOGY/LYMPH: DO YOU TAKE ANY BLOOD THINNERS? (FOR EXAMPLE- COUMADIN, PLAVIX, AGGRENOX, PLATEL, PRADAXA, OR XARELTO) NO . WHEN WAS YOUR LAST DOSE? DATE: TIME: . NEUROLOGY: HAVE YOU FALLEN IN THE PAST 12 MONTHS? YES, STATES FALL PRIOR TO LAST VISIT, DISCUSSED AT PREVIOUS VISIT . ANY NEW EXTREMITY NUMBNESS OR WEAKNESS? YES, NUMBNESS AND WEAKNESS WORSENING TO BILATERAL LEGS . CARDIOLOGY: DO YOU HAVE A PACEMAKER OR DEFIBRILLATOR? STATES TWO DORSAL COLUMN STIMULATORS . RESPIRATORY: HAVE YOU BEEN SICK IN THE PAST WEEK? NO . FEVER NO . FLU LIKE SYMPTOMS? NO . COUGH NO . INTEGUMENTARY: DO YOU HAVE ANY RASHES OR OPEN SORES? NO . ALLERGIC/IMMUNO: ARE YOU ALLERGIC TO IV DYE? NO . ANY NEW ALLERGIES? NO . PSYCHIATRIC: DO YOU HAVE THOUGHTS OF HURTING YOURSELF OR SOMEONE ELSE? NO . ARE YOU ABUSED, NEGLECTED, OR IN AN UNSAFE ENVIRONMENT? NO . ENDOCRINOLOGY: ARE YOU DIABETIC? NO . OTHER: DO YOU NEED ANY PRESCRIPTIONS? NO . IF YES, PLEASE LIST: ____ . ANY NEW PROBLEMS WITH YOUR MEDICATIONS? NO . WHEN DID YOU LAST EAT? ____ . WHEN DID YOU LAST DRINK? ____ . WHAT DID YOU LAST DRINK? ____ . NAME OF PERSON DRIVING YOU HOME? ____ . DO YOU HAVE ANY OTHER QUESTIONS OR CONCERNS NO . VITAL SIGNS WT 297.6 LBS, HT 69 IN, BMI 43.94 INDEX, BP 127/78 MM HG, HR 67 /MIN, RR 18 /MIN, TEMP 97.3 F, OXYGEN SAT % 95%, SAFE IN ENV? (Y/N) YES, NA INITIALS 08:56 SC, REVIEWED BY: MERLE. EXAMINATION GENERAL EXAMINATION: GENERALNO ACUTE DISTRESS, WELL NOURISHED AND HYDRATED. PSYCHAPPROPRIATE MOOD AND AFFECT . LUNGS:CLEAR TO AUSCULTATION BILATERALLY, NO WHEEZES, RHONCHI, RALES. HEART:NO MURMURS, REGULAR RATE AND RHYTHM. ASSESSMENTS INTERVERTEBRAL DISC DISORDERS WITH RADICULOPATHY, LUMBOSACRAL REGION - M51.17 (PRIMARY) TREATMENT INTERVERTEBRAL DISC DISORDERS WITH RADICULOPATHY, LUMBOSACRAL REGION START BACLOFEN TABLET, 10 MG, DIRECTED 1/2 TABET TID X 5 DAYS THEN WHOLE TABLET TID, ORALLY, THREE TIMES A DAY, 30 DAY(S), 90, REFILLS 0 CLINICAL NOTES: 48 YEAR OLD MALE IN FOR CHRONIC PAIN FOLLOW UP. HE WAS STARTED ON TIZANIDINE AT LAST VISIT AND ADMITS TODAY THAT IT HAS BEEN INEFFECTIVE. GIVEN PRESENTING SYMPTOMS AND RESULTS OF PHYSICAL EXAMINATION RECOMMENDED STOPPING TIZANIDINE AND STARTING BACLOFEN. PATIENT IS TO HAVE AN SIJ IN MARCH AND WE WILL FOLLOW UP ON THE EFFECTIVENESS OF THE MEDICATION AT THAT TIME. PATIENT HAS EXPRESSED UNDERSTANDING OF AND WAS IN AGREEMENT WITH TX PLAN. GIVEN TIME TO ASK QUESTIONS AND EXPRESS CONCERNS. . OTHERS STOP TIZANIDINE HCL TABLET, 2 MG, 1 TABLET NEEDED, ORALLY FOR SPASMS AND PAIN, THREE TIMES A DAY MDD3 CONTINUE GABAPENTIN TABLET, 600 MG, 1 TAB, ORALLY FOR PAIN, THREE TIMES DAILY MDD3 CONTINUE CYMBALTA CAPSULE DELAYED RELEASE PARTICLES, 60 MG, 1 CAPSULE, ORALLY, BID PREVENTIVE MEDICINE PAIN CLINIC TEACHING: MEDICATIONS PRINTED AND REVIEWED INFORMATION ON NEW MEDICATION, BACLOFEN, WITH PATIENT. PATIENT VERBALIZED AN UNDERSTANDING. MINGO EISENBERG 02/24/2019 9:37:16 AM > . PROCEDURE CODES FA211 ESTABILISHED PATIENT [facility] CHARGE DISPOSITION & COMMUNICATION ELECTRONICALLY SIGNED BY FERNANDA MUELLER ON 02/24/2019 AT 11:28 AM EDT DISCLAIMER : THIS IS A VISIT SUMMARY EXTRACTED FROM THE [employer] CHART. IT IS NOT A COPY OF THE [employer] PROGRESS NOTE. IMMANUEL
== END ==
LOC: M PAIN 09:00
PROVIDERS: ATTEND Family Medicine
DX: G89.29 Other chronic pain (principal); M51.17 Intervertebral disc disorders with radiculopathy, lumbosacral region; I10 Essential (primary) hypertension; F41.9 Anxiety disorder, unspecified; M48.061 Spinal stenosis, lumbar region without neurogenic claudication; M53.3 Sacrococcygeal disorders, not elsewhere classified; M79.18 Myalgia, other site; F17.210 Nicotine dependence, cigarettes, uncomplicated; G90.511 Complex regional pain syndrome I of right upper limb; Z79.899 Other long term (current) drug therapy; Z88.8 Allergy status to other drugs, medicaments and biological substances

== ENCOUNTER → 2019-04-03 | Outpatient (CLI) | payer OTHER ==
[~2019-04-03] MED LIST changes: +CLON0.5T2 PO; -CLON0.5T8 PO
--- NOTE | 2019-04-10 00:27 | ECWPNPC ---
PATIENT NAME: WARREN SANTOS : 1970 GENDER: MALE VISIT DATE: 04/03/2019 DISCHARGE DATE: 04/03/19 1000 VISIT LOCKED DATE TIME: PHYSICIAN: MICHAEL MODI MD RESOURCE: MICHAEL MODI MD REASON FOR APPOINTMENT 1. W/C MEDS HISTORY OF PRESENT ILLNESS HISTORY OF PRESENT ILLNESS: PAIN THE PATIENT DESCRIBES THE PAIN... 48 YEAR OLD MALE PATIENT WITH A HISTORY OF CHRONIC RIGHT ARM PAIN. THE PATIENT DESCRIBES THE PAIN ACHING, BURNING, SORE, TENDER, SHARP, STABBING, SHOOTING, AND CONTINUOUS WITH A PAIN SCORE OF 6-9/10 DEPENDING ON PHYSICAL ACTIVITY. THE PATIENT WAS HURT IN A WORK RELATED INJURY ON 02/09/2011 WHEN HE WAS WORKING AT [employer] WHEN A COWORKER STEPPED ON HIS HAND. THE PATIENT SAYS HE ALWAYS KEEPS HIS RIGHT ARM COVERED WITH A SLEEVE TO PROTECT IT. THE PATIENT STATES HE IS USING GABAPENTIN AND CYMBALTA THAT HELPS CONTROL HIS PAIN. PATIENT DENIES UNEXPLAINABLE WEIGHT LOSS, FEVER, CHILLS, NEW CHANGES ON HIS URINARY OR BOWEL CONTROL. FALL RISK SCREENING: SCREENING :NO FALLS REPORTED IN THE LAST YEAR CURRENT MEDICATIONS TAKING ATENOLOL 50 MG TABLET 1 TABLET ORALLY DAILY TAKING AMLODIPINE BESYLATE 5 MG TABLET 1 TABLET ORALLY DAILY TAKING DOCUSATE SODIUM 100 MG TABLET 1 TABLET NEEDED FOR CONSTIPATION ORALLY TWICE DAILY TAKING MAY USE - - MEDICAL MARIJUANA ORALLY DIRECTED TAKING LASIX 20 MG TABLET 1 TABLET ORALLY ONCE A DAY NEEDED TAKING HYDROXYZINE HCL 25 MG TABLET 1 TABLET NEEDED ORALLY FOUR TIMES DAILY TAKING METOPROLOL SUCCINATE ER 100 MG TABLET EXTENDED RELEASE 24 HOUR 1 TABLET ORALLY ONCE A DAY TAKING NYSTATIN [id number] UNIT/GM CREAM 1 APPLICATION TO AFFECTED AREA EXTERNALLY TWICE A DAY TAKING GABAPENTIN 600 MG TABLET 1 TAB ORALLY FOR PAIN THREE TIMES DAILY MDD3 TAKING BACLOFEN 10 MG TABLET DIRECTED 1/2 TABET THEN WHOLE TABLET TID ORALLY THREE TIMES A DAY TAKING CYMBALTA 60 MG CAPSULE DELAYED RELEASE PARTICLES 1 CAPSULE ORALLY BID NOT-TAKING OXYCODONE HCL 5 MG TABLET 1 TO 2 TABLET NEEDED ORALLY FOR PAIN EVERY 6 HRS MDD6 MEDICATION LIST REVIEWED AND RECONCILED WITH THE PATIENT PAST MEDICAL HISTORY HTN ANXIETY REFLEX SYMPATHETIC DYSTROPHY/COMPLEX REGIONAL PAIN SYNDROME RIGHT UPPER EXTREMITY SPINAL STENOSIS- LUMBAR SACROILIITIS MYALGIA ACUTE RENAL FAILURE CHRONIC PAIN ALLERGIES BUSPIRONE HCL: FACIAL RASH, SWELLING, HIVES - ALLERGY IBUPROFEN: ACUTE RENAL FAILURE - ALLERGY LISINOPRIL: ACUTE RENAL FAILURE - ALLERGY CHLORTHALIDONE: RASH/FOLLICULITIS - SIDE EFFECTS SURGICAL HISTORY LAMINECTOMY/DISCECTOMY L1-S1 04/2015 DCS- CERVICAL 07/2011 INGUINAL HERNIA REPAIR GROIN LYMPH NODE EXCISION RIGHT HAND- SCREWS/PLATE 2001 ARTHROSCOPIC KNEE SURGERY DENTAL EXTRACTIONS DORSAL COLUMN STIMULATOR- THORACIC/LUMBAR- DR BURGESS 02/2017 FAMILY HISTORY FATHER: ALIVE, DIAGNOSED WITH HYPERTENSION MOTHER: ALIVE, HEART DISEASE, DIABETES, HYPERTENSION PATERNAL GRAND FATHER: HEART DISEASE PATERNAL GRAND MOTHER: DIABETES 2 SON(S) - HEALTHY. SOCIAL HISTORY GENERAL: TOBACCO USE ARE YOU A:CURRENT SMOKER HOW OFTEN DO YOU SMOKE CIGARETTES?EVERY DAY HOW SOON AFTER YOU WAKE UP DO YOU SMOKE YOUR FIRST CIGARETTE?6-30 MIN HOW MANY CIGARETTES A DAY DO YOU SMOKE?11-20 ARE YOU INTERESTED IN QUITTING?NOT READY TO QUIT ADDITIONAL FINDINGS: TOBACCO USERMODERATE CIGARETTE SMOKER (10-19 CIGS/DAY) PATIENT COUNSELED ON THE DANGERS OF TOBACCO USE AND URGED TO QUIT:02/24/2019 COUNSELED THE PATIENT ON SMOKING EFFECTS, EDUCATION [id number]/16/2019 SMOKING CESSATION INFORMATION GIVEN11/27/2018 11/04/18 PT DECLINED HIV / HEP-C SCREENING HIV TEST OFFERED TO PATIENT:YES DATE OFFERED:11/27/2018 TEST ACCEPTED:NO HEP-C TEST OFFERED TO PATIENT:NO REASON:PATIENT DECLINED BROCHURE PROVIDED TO PATIENTNO OTHERS AT HOME: SPOUSE, CHILDREN. DIET: REGULAR. LANGUAGE LANGUAGES SPOKEN:[place] DOMESTIC VIOLENCE DO YOU FEEL SAFE IN YOUR ENVIRONMENT?YES BMI CARE GOAL FOLLOW-UP ABOVE NORMAL BMI FOLLOW-UPDIETARY MANAGEMENT EDUCATION, GUIDANCE, AND COUNSELING RECREATIONAL DRUG USE DRUG USE?NO EXERCISE: NO REGULAR EXERCISE. LEARNING BARRIERS / SPECIAL NEEDS CHANGE FROM LAST VISIT?NO BARRIERS TO LEARNING?NO HEARING IMPAIRED?NO VISION IMPAIRED?YES COGNITIVELY IMPAIRED?NO :CORRECTIVE LENSES WEARS READING GLASSES SOMETIMES READINESS TO LEARN?YES LEARNING PREFERENCES?NO LEARNING CAPABILITIES PRESENT?YES EMOTIONAL BARRIERS?NO SPECIAL DEVICES?NO HAND BOBBIN CLEANER NEEDED?NO PAIN CLINIC PFS, CLERGY, PUBLIC HEALTH REFERRALS PFS REFERRAL NEEDED?NO CLERGY REFERRAL NEEDED?NO PUBLIC HEALTH REFERRAL NEEDED?NO WAS THE PROVIDER NOTIFIED OF ANY PERTINENT INFO? N/A HAS THE PATIENT BEEN EDUCATED REGARDING HIS/HER PLAN OF CARE?YES HAS THE PATIENT BEEN EDUCATED REGARDING PAIN, THE RISK FOR PAIN, THE IMPORTANCE OF EFFECTIVE PAIN MANAGEMENT, AND THE PAIN ASSESSMENT PROCESS?YES LATEX QUESTIONNAIRE LATEX ALLERGY : HAVE YOU EVER DEVELOPED ANY TYPE OF REACTION AFTER HANDLING LATEX PRODUCTS SUCH RUBBER GLOVES, CONDOMS, DIAPHRAGMS, BALLOONS, SOCKS, OR UNDERWEAR?NO LATEX ALLERGY : HAVE YOU EVER DEVELOPED ANY TYPE OF REACTION DURING OR AFTER DENTAL APPOINTMENT, VAGINAL/RECTAL EXAMINATION, SURGICAL PROCEDURE, OR ANY OTHER EXPOSURE?NO DATE ASKED : 01/26/2019 LATEX RISK : HAVE YOU EVER HAD ANY DIFFICULTY BREATHING OR HIVES AFTER EATING OR HANDLING ANY FRUITS, OR VEGETABLES; SUCH KIWI, BANANAS, STONE FRUITS, OR CHESTNUTSNO LATEX RISK : DO YOU HAVE A PREVIOUS PERSONAL HISTORY OF MORE THAN NINE SURGERIES, SPINA BIFIDA, OR REPEATED CATHERIZATIONS? NO LATEX RISK : ARE YOU FREQUENTLY EXPOSED TO LATEX PRODUCTS IN YOUR OCCUPATION?NO CAFFEINE CAFFEINE USE?YES HOW OFTEN AND HOW MUCH? 2 COFFEES DAILY ADVANCE DIRECTIVE ADVANCE DIRECTIVE DISCUSSED WITH PATIENT:YES PT. DOES NOT HAVE ANY ADVANCED DIRECTIVES AND HE DECLINED INFORAMTION ON HCP AT THIS TIME SHINTO [id number] EPISCOPAL NO MANDAEISM BELIEFS THAT WOULD IMPACT HEALTH CARE. MARITAL STATUS: SINGLE. ALCOHOL SCREENING DID YOU HAVE A DRINK CONTAINING ALCOHOL IN THE PAST YEAR?NO POINTS0 INTERPRETATIONNEGATIVE OCCUPATION: DISABLED. REVIEWED WITH PATIENT 02/24/19 0859 JS. HOSPITALIZATION/MAJOR DIAGNOSTIC PROCEDURE SURGERIES ACUTE RENAL FAILURE 03/2016 [facility] [place]-LEFT HIP PAIN 10/2018 REVIEW OF SYSTEMS REVIEWED BY: PROVIDER: MICHAEL MODI MD . CONSTITUTIONAL: ANY CHANGE IN YOUR MEDICAL CONDITION? NO . CHILLS NO . FEVER NO . INFECTION: DO YOU HAVE NEW INFECTIONS? NO . DO YOU HAVE HISTORY OF MRSA? NO . MUSCULOSKELETAL: ANY NEW PATTERNS OF PAIN OR NUMBNESS? NO . GASTROENTEROLOGY: ANY NEW CHANGE IN BOWEL CONTROL? NO . GENITOURINARY: ANY NEW CHANGE IN BLADDER CONTROL? NO . IS THERE A CHANCE YOU COULD BE ? NO . HEMATOLOGY/LYMPH: DO YOU TAKE ANY BLOOD THINNERS? (FOR EXAMPLE- COUMADIN, PLAVIX, AGGRENOX, PLATEL, PRADAXA, OR XARELTO) NO . WHEN WAS YOUR LAST DOSE? DATE: TIME: . NEUROLOGY: HAVE YOU FALLEN IN THE PAST 12 MONTHS? YES . ANY NEW EXTREMITY NUMBNESS OR WEAKNESS? NO; DORSAL COLUMN STIMULATOR X 2 . CARDIOLOGY: DO YOU HAVE A PACEMAKER OR DEFIBRILLATOR? NO . RESPIRATORY: HAVE YOU BEEN SICK IN THE PAST WEEK? NO . FEVER NO . FLU LIKE SYMPTOMS? NO . COUGH NO . INTEGUMENTARY: DO YOU HAVE ANY RASHES OR OPEN SORES? NO . ALLERGIC/IMMUNO: ARE YOU ALLERGIC TO IV DYE? NO . ANY NEW ALLERGIES? NO . PSYCHIATRIC: DO YOU HAVE THOUGHTS OF HURTING YOURSELF OR SOMEONE ELSE? NO . ARE YOU ABUSED, NEGLECTED, OR IN AN UNSAFE ENVIRONMENT? NO . ENDOCRINOLOGY: ARE YOU DIABETIC? NO . OTHER: DO YOU NEED ANY PRESCRIPTIONS? NO . IF YES, PLEASE LIST: ____ . ANY NEW PROBLEMS WITH YOUR MEDICATIONS? NO . WHEN DID YOU LAST EAT? ____ . WHEN DID YOU LAST DRINK? ____ . WHAT DID YOU LAST DRINK? ____ . NAME OF PERSON DRIVING YOU HOME? ____ . DO YOU HAVE ANY OTHER QUESTIONS OR CONCERNS YES - COULD BACLOFEN DOSE BE INCREASED . VITAL SIGNS WT 300.8 LBS, HT 69 IN, BMI 44.42 INDEX, BP 127/74 MM HG, HR 72 /MIN, RR 18 /MIN, TEMP 97.8 F, OXYGEN SAT % 96%, NA INITIALS AW 0900, REVIEWED BY: MILAGRO. EXAMINATION GENERAL EXAMINATION: PATIENT IS ALERT O X 3 AND COOPERATIVE. PATIENT'S RIGHT ARM IS COVERED WITH ARM SLEEVE. RIGHT ARM IS TENDER TO TOUCH. PATIENT CANNOT ABDUCT RIGHT ARM, BUT CAN MOVE THE LEFT ARM. 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 SANTOS'S PAIN MANAGEMENT CASE. THE PATIENT WILL CONTINUE WITH HIS CURRENT MEDICATION REGIMEN OF GABAPENTIN AND CYMBALTA, AND HIS SPINAL COLUMN STIMULATOR THAT IS HELPING TO CONTROL HIS RIGHT ARM PAIN. I WILL REFER THE PATIENT TO VLAD ANGELO TO CONSIDER EVALUATION AND CONTINUING THE PATIENT'S MEDICATION MANAGEMENT. THE PATIENT WILL FOLLOW UP IN 3 MONTHS WITH THE NURSE PRACTITIONER. INSTRUCTIONS WERE GIVEN, QUESTIONS WERE ANSWERED, PATIENT REPORTS UNDERSTANDING AND AGREES WITH THE PLAN. I, PORSCHE LOVE, DOCUMENTED THE ABOVE INFORMATION ACTING A SCRIBE FOR DR. MODI. I HAVE REVIEWED THE ABOVE DOCUMENT, WRITTEN BY PORSCHE CASTRO AND I VERIFY THAT IT IS ACCURATE. . PROCEDURES PN WORKMANS' COMP OPINION IN YOUR OPINION, WAS THE INCIDENT THAT THE PATIENT DESCRIBED THE COMPETENT MEDICAL CAUSE OF THIS INJURY/ILLNESS? YES ARE THE PATIENT'S COMPLAINTS CONSISTENT WITH HIS/HER HISTORY OF THE INJURY/ILLNESS? YES IS THE PATIENT'S HISTORY OF THE INJURY/ILLNESS CONSISTENT WITH YOUR OBJECTIVE FINDING? YES WHAT IS THE PERCENTAGE OF TEMPORARY IMPAIRMENT? TOTAL = 100% IS THE PATIENT WORKING? NO DOCTOR ON SITE: MICHAEL VICTOR MD PROCEDURE CODES FA211 ESTABILISHED PATIENT [facility] FACILITY CHARGE G8427 CURRENT MEDS W/DOSAGES DOCUMENTED G8730 PAIN ASSESS POS TOOL F/U PLAN DOC DISPOSITION & COMMUNICATION FOLLOW UP 3 MONTHS (REASON: F/U W/ STAFF RADIOLOGIST FOR W/C CASE, REFERRING TO VLAD ANGELO TO CONSIDER) ELECTRONICALLY SIGNED BY MICHAEL MODI MD, MD ON 04/09/2019 AT 01:29 PM EDT DISCLAIMER : THIS IS A VISIT SUMMARY EXTRACTED FROM THE [employer] CHART. IT IS NOT A COPY OF THE [employer] PROGRESS NOTE. IMMANUEL
== END ==
LOC: M PAIN 09:00
PROVIDERS: ATTEND Anesthesiology
DX: M79.2 Neuralgia and neuritis, unspecified (principal); G89.29 Other chronic pain; I10 Essential (primary) hypertension; Z86.59 Personal history of other mental and behavioral disorders; M79.18 Myalgia, other site; F17.210 Nicotine dependence, cigarettes, uncomplicated; Z96.89 Presence of other specified functional implants; E66.01 Morbid (severe) obesity due to excess calories; Z68.41 Body mass index [BMI] 40.0-44.9, adult; Z79.899 Other long term (current) drug therapy

== ENCOUNTER → 2019-04-24 | Outpatient (REF) | payer MEDICARE, OTHER ==
[~2019-04-24] MED LIST changes: -CLON0.5T2 PO; +CLON0.5T8 PO
== END ==
LOC: M SFHCCLAY 12:43
PROVIDERS: ATTEND Family Medicine
DX: H10.9 Unspecified conjunctivitis (principal)

== ENCOUNTER → 2019-04-28 | Outpatient (REF) | payer MEDICARE ==
[~2019-04-28] MED LIST changes: +CLON0.5T2 PO; -CLON0.5T8 PO
[2019-04-28 16:52] LABS: BASO # 0.1 10^3/uL (0.0-0.2); BASO % 0.5 % (0.0-1.0); EOS # 0.3 10^3/uL (0.0-0.5); HEMOGLOBIN 15.5 g/dl (13.5-17.5); LYMPH # 2.9 10^3/uL (1.5-5.0); LYMPH % 31.6 % (24.0-44.0); MEAN CORPUSCULAR HEMOGLOBIN 28.4 pg (27.0-33.0); MEAN CORPUSCULAR VOLUME 86.1 fl (80.0-96.0); MONO # 0.9 10^3/uL (0.0-0.8); MONO % 9.7 % (0.0-5.0); PLATELET COUNT, AUTOMATED 245 10^3/uL (150-450); RED BLOOD COUNT 5.46 10^6/uL (4.30-6.10); WHITE BLOOD COUNT 9.1 10^3/uL (4.0-10.0)
[2019-04-28 16:57] LABS: ALBUMIN 3.5 GM/DL (3.2-5.2); ALT/SGPT 24 U/L (12-78); BILIRUBIN,TOTAL 0.5 MG/DL (0.2-1.0); BLOOD UREA NITROGEN 14 MG/DL (7-18); CARBON DIOXIDE LEVEL 26 MEQ/L (21-32); CHLORIDE LEVEL 105 MEQ/L (98-107); CREATININE FOR GFR 1.13 MG/DL (0.70-1.30); GLOMERULAR FILTRATION RATE > 60.0 (>60); GLUCOSE, FASTING 67 MG/DL (70-100); POTASSIUM SERUM 4.6 MEQ/L (3.5-5.1); SODIUM LEVEL 137 MEQ/L (136-145); TOTAL PROTEIN 7.2 GM/DL (6.4-8.2)
[2019-04-28 17:10] LABS: HEMOGLOBIN A1c 5.7 %
== END ==
LOC: M SFHCCLAY 11:41
PROVIDERS: ATTEND Family Medicine
DX: I10 Essential (primary) hypertension (principal); R73.01 Impaired fasting glucose
CPT/HCPCS: 80053; 83036; 85025; G0463

== ENCOUNTER → 2019-05-19 | Outpatient (CLI) | payer OTHER, SELFPAY ==
[~2019-05-19] MED LIST changes: +BUPIVACAINE HCL 0.25% 30 ML VIAL As Ordered ONE; -CLON0.5T2 PO; +CLON0.5T8 PO; +ISOVUE-M 300 61% 15ML VIAL (Q9967) As Ordered ONE; +LIDOCAINE 1% SDV INJ 30 ML VIAL As Ordered ONE; +TRIAMCINOLONE ACETONIDE SUSP 40 MG/ML VIAL (J3301) As Ordered ONE; +diazePAM 5 MG TAB As Ordered ONE; +oxyCODONE 5MG TAB As Ordered ONE
--- NOTE | 2019-05-19 15:41 | REP ---
SI joint series: Three views. History: SI joint injection for pain. 38 seconds of fluoroscopy time is reported. Findings: A sequence of three last image hold fluoroscopically obtained spot radiographs of the SI joints bilaterally document various needle positions. Electronically Signed by Juan Carlos Parker MD 05/19/2019 04:55 P
== END ==
LOC: M PAIN 10:30
PROVIDERS: ATTEND Anesthesiology
DX: M46.1 Sacroiliitis, not elsewhere classified (principal); I10 Essential (primary) hypertension; F41.9 Anxiety disorder, unspecified; M48.061 Spinal stenosis, lumbar region without neurogenic claudication; M79.18 Myalgia, other site; G90.511 Complex regional pain syndrome I of right upper limb; G89.29 Other chronic pain; Z79.899 Other long term (current) drug therapy; Z88.6 Allergy status to analgesic agent; Z88.8 Allergy status to other drugs, medicaments and biological substances
CPT/HCPCS: G0260; J3301; Q9967

== ENCOUNTER → 2019-12-21 | Outpatient (CLI) | payer OTHER ==
[~2019-12-21] MED LIST changes: -BUPIVACAINE HCL 0.25% 30 ML VIAL As Ordered ONE; +CLON0.5T2 PO; -CLON0.5T8 PO; -ISOVUE-M 300 61% 15ML VIAL (Q9967) As Ordered ONE; -LIDOCAINE 1% SDV INJ 30 ML VIAL As Ordered ONE; +OXYC-1 PO; -OXYC15TA76 PO; -TRIAMCINOLONE ACETONIDE SUSP 40 MG/ML VIAL (J3301) As Ordered ONE; -ZOLP12.515 PO; +ZOLP12.518 PO; -diazePAM 5 MG TAB As Ordered ONE; -oxyCODONE 5MG TAB As Ordered ONE
--- NOTE | 2019-12-23 00:09 | ECWPNPC ---
PATIENT NAME: WARREN SANTOS : 1970 GENDER: MALE VISIT DATE: 12/21/2019 DISCHARGE DATE: 12/21/19 0947 VISIT LOCKED DATE TIME: PHYSICIAN: MICHAEL MODI MD RESOURCE: MICHAEL MODI MD REASON FOR APPOINTMENT 1. [phone]-MEDICARE AB-BACK/HIP HISTORY OF PRESENT ILLNESS HISTORY OF PRESENT ILLNESS: PAIN THE PATIENT DESCRIBES THE PAIN... PERMISSION FROM PATIENT WAS RECEIVED TO DO TELEMEDICINE VISIT USING ZOOM APPLICATION. 48 YEAR OLD MALE PATIENT WITH A HISTORY OF CHRONIC LOW BACK AND HIP PAIN. THE PATIENT DESCRIBES HIS PAIN ACHING, BURNING, HAVE IT ALL THE TIME, SHARP, STABBING, TENDER, THROBBING, SORE, SHOOTING WITH A PAIN SCORE OF 6-10/10 DEPENDING ON PHYSICAL ACTIVITY. THE PATIENT STATES HAS HAD MULTIPLE BACK SURGERIES DONE AND CURRENTLY HAS A DCS IMPLANT, THEREFORE HE IS UNABLE TO DO MRI STUDIES. THE PATIENT SAYS HE HAS RECEIVED HIP INJECTIONS IN THE PAST THAT HAS HELPED WITH HIS PAIN AND MOBILITY IN THE PAST. THE PATIENT SAYS HIS MAIN CONCERN IS HIS LEFT HIP PAIN. PATIENT DENIES UNEXPLAINABLE WEIGHT LOSS, FEVER, CHILLS, NEW CHANGES ON HIS URINARY OR BOWEL CONTROL. FALL RISK SCREENING: SCREENING :NO FALLS REPORTED IN THE LAST YEAR CURRENT MEDICATIONS TAKING ATENOLOL 50 MG TABLET 1 TABLET ORALLY ONCE A DAY TAKING AMLODIPINE BESYLATE 2.5 MG TABLET 1 TABLETS ORALLY ONCE A DAY TAKING CYMBALTA 60 MG CAPSULE DELAYED RELEASE PARTICLES 1 CAPSULE ORALLY TWICE A DAY TAKING FLUOXETINE HCL 20 MG TABLET 1 TABLET ORALLY ONCE A DAY TAKING DOCUSATE SODIUM 100 MG TABLET 1 TABLET NEEDED FOR CONSTIPATION ORALLY TWICE DAILY TAKING MAY USE - - MEDICAL MARIJUANA ORALLY DIRECTED TAKING HYDROXYZINE HCL 25 MG TABLET 1 TABLET NEEDED ORALLY FOUR TIMES DAILY TAKING BACLOFEN 10 MG TABLET 1 TABLET WITH FOOD OR MILK ORALLY FOR SPASMS AND PAIN THREE TIMES A DAY MDD3 TAKING GABAPENTIN 600 MG TABLET 1 TABLET ORALLY FOR PAIN 3 TIMES A DAY TAKING METOPROLOL SUCCINATE ER 100 MG TABLET EXTENDED RELEASE 24 HOUR 1 TABLET ORALLY ONCE A DAY TAKING LASIX 20 MG TABLET 1 TABLET ORALLY ONCE A DAY NEEDED MEDICATION LIST REVIEWED AND RECONCILED WITH THE PATIENT PAST MEDICAL HISTORY HTN ANXIETY REFLEX SYMPATHETIC DYSTROPHY/COMPLEX REGIONAL PAIN SYNDROME RIGHT UPPER EXTREMITY SPINAL STENOSIS- LUMBAR SACROILIITIS MYALGIA ACUTE RENAL FAILURE CHRONIC PAIN ALLERGIES BUSPIRONE HCL: FACIAL RASH, SWELLING, HIVES - ALLERGY IBUPROFEN: ACUTE RENAL FAILURE - ALLERGY LISINOPRIL: ACUTE RENAL FAILURE - ALLERGY CHLORTHALIDONE: RASH/FOLLICULITIS - SIDE EFFECTS SURGICAL HISTORY LAMINECTOMY/DISCECTOMY L1-S1 04/2015 DCS- CERVICAL 07/2011 INGUINAL HERNIA REPAIR GROIN LYMPH NODE EXCISION RIGHT HAND- SCREWS/PLATE 2001 ARTHROSCOPIC KNEE SURGERY DENTAL EXTRACTIONS DORSAL COLUMN STIMULATOR- THORACIC/LUMBAR- DR BURGESS 02/2017 FAMILY HISTORY FATHER: ALIVE, DIAGNOSED WITH HYPERTENSION MOTHER: ALIVE, DIABETES, HYPERTENSION, UNSPECIFIED HEART DISEASE PATERNAL GRAND FATHER: UNSPECIFIED HEART DISEASE PATERNAL GRAND MOTHER: DIABETES 2 SON(S) - HEALTHY. SOCIAL HISTORY GENERAL: TOBACCO USE ARE YOU A:CURRENT SMOKER ARE YOU INTERESTED IN QUITTING?NOT READY TO QUIT COUNSELED THE PATIENT ON SMOKING EFFECTS, EDUCATION [id number]/2020 HOW MANY CIGARETTES A DAY DO YOU SMOKE?11-20 HOW SOON AFTER YOU WAKE UP DO YOU SMOKE YOUR FIRST CIGARETTE?6-30 MIN HOW OFTEN DO YOU SMOKE CIGARETTES?EVERY DAY PATIENT COUNSELED ON THE DANGERS OF TOBACCO USE AND URGED TO QUIT:12/21/2019 ADDITIONAL FINDINGS: TOBACCO USERMODERATE CIGARETTE SMOKER (10-19 CIGS/DAY) SMOKING CESSATION INFORMATION GIVEN10/23/2019 LATEX QUESTIONNAIRE LATEX ALLERGY : HAVE YOU EVER DEVELOPED ANY TYPE OF REACTION AFTER HANDLING LATEX PRODUCTS SUCH RUBBER GLOVES, CONDOMS, DIAPHRAGMS, BALLOONS, SOCKS, OR UNDERWEAR?NO LATEX ALLERGY : HAVE YOU EVER DEVELOPED ANY TYPE OF REACTION DURING OR AFTER DENTAL APPOINTMENT, VAGINAL/RECTAL EXAMINATION, SURGICAL PROCEDURE, OR ANY OTHER EXPOSURE?NO LATEX RISK : HAVE YOU EVER HAD ANY DIFFICULTY BREATHING OR HIVES AFTER EATING OR HANDLING ANY FRUITS, OR VEGETABLES; SUCH KIWI, BANANAS, STONE FRUITS, OR CHESTNUTSNO LATEX RISK : DO YOU HAVE A PREVIOUS PERSONAL HISTORY OF MORE THAN NINE SURGERIES, SPINA BIFIDA, OR REPEATED CATHERIZATIONS? NO LATEX RISK : ARE YOU FREQUENTLY EXPOSED TO LATEX PRODUCTS IN YOUR OCCUPATION?NO DATE ASKED : 12/21/2019 BMI CARE GOAL FOLLOW-UP ABOVE NORMAL BMI FOLLOW-UPDIETARY MANAGEMENT EDUCATION, GUIDANCE, AND COUNSELING ALCOHOL SCREENING DID YOU HAVE A DRINK CONTAINING ALCOHOL IN THE PAST YEAR?NO POINTS0 INTERPRETATIONNEGATIVE RECREATIONAL DRUG USE DRUG USE?NO CAFFEINE CAFFEINE USE?YES HOW OFTEN AND HOW MUCH? 2 COFFEES DAILY SEXUAL HX HAD SEX IN THE LAST 12 MONTHS (VAGINAL, ORAL, OR ANAL)?YES WITHWOMEN ONLY PREVENTION STRATEGIES DISCUSSED:OTHER USE PROTECTION?NO HAVE YOU EVER HAD AN STD?NO HIV / HEP-C SCREENING HIV TEST OFFERED TO PATIENT:YES DATE OFFERED:10/23/2019 TEST ACCEPTED:NO HEP-C TEST OFFERED TO PATIENT:NO REASON:PATIENT DECLINED BROCHURE PROVIDED TO PATIENTNO PENTECOSTAL [id number] MORAVIAN NO GNOSTICISM BELIEFS THAT WOULD IMPACT HEALTH CARE. LANGUAGE LANGUAGES SPOKEN:ISRAELI LEARNING BARRIERS / SPECIAL NEEDS CHANGE FROM LAST VISIT?NO 04/24/19 BARRIERS TO LEARNING?NO HEARING IMPAIRED?NO VISION IMPAIRED?YES COGNITIVELY IMPAIRED?NO :CORRECTIVE LENSES WEARS READING GLASSES SOMETIMES READINESS TO LEARN?YES LEARNING PREFERENCES?NO LEARNING CAPABILITIES PRESENT?YES EMOTIONAL BARRIERS?NO SPECIAL DEVICES?NO MEDIA SPECIALIST NEEDED?NO DOMESTIC VIOLENCE STATUS: DO YOU FEEL SAFE IN YOUR ENVIRONMENT?YES OCCUPATION: DISABLED. DIET: REGULAR. EXERCISE: NO REGULAR EXERCISE. MARITAL STATUS: SINGLE. OTHERS AT HOME: SPOUSE, CHILDREN. NEW PATIENT PAIN DIARY TODAY'S VISIT 12/21/19 PATIENT DESCRIBES PAIN :ACHING, BURNING, HAVE IT ALL THE TIME, SHARP, STABBING, TENDER, THROBBING, SORE, SHOOTING FROM 0-10, WHAT LEVEL IS YOUR PAIN TODAY?7 PAIN CLINIC PFS, CLERGY, PUBLIC HEALTH REFERRALS PFS REFERRAL NEEDED?NO CLERGY REFERRAL NEEDED?NO PUBLIC HEALTH REFERRAL NEEDED?NO WAS THE PROVIDER NOTIFIED OF ANY PERTINENT INFO? N/A HAS THE PATIENT BEEN EDUCATED REGARDING HIS/HER PLAN OF CARE?YES HAS THE PATIENT BEEN EDUCATED REGARDING PAIN, THE RISK FOR PAIN, THE IMPORTANCE OF EFFECTIVE PAIN MANAGEMENT, AND THE PAIN ASSESSMENT PROCESS?YES ADVANCE DIRECTIVE ADVANCE DIRECTIVE DISCUSSED WITH PATIENT:YES PT. DOES NOT HAVE ANY ADVANCED DIRECTIVES AND HE DECLINED INFORAMTION ON HCP AT THIS TIME REVIEWED WITH PATIENT 02/24/19 0859 JS. HOSPITALIZATION/MAJOR DIAGNOSTIC PROCEDURE SURGERIES ACUTE RENAL FAILURE 03/2016 [facility]-LEFT HIP PAIN 10/2018 REVIEW OF SYSTEMS REVIEWED BY: PROVIDER: MICHAEL MODI MD . CONSTITUTIONAL: ANY CHANGE IN YOUR MEDICAL CONDITION? NO . CHILLS NO . FEVER NO . INFECTION: DO YOU HAVE NEW INFECTIONS? NO . DO YOU HAVE HISTORY OF MRSA? NO . MUSCULOSKELETAL: ANY NEW PATTERNS OF PAIN OR NUMBNESS? NO . GASTROENTEROLOGY: ANY NEW CHANGE IN BOWEL CONTROL? NO . GENITOURINARY: ANY NEW CHANGE IN BLADDER CONTROL? NO . IS THERE A CHANCE YOU COULD BE ? NO . HEMATOLOGY/LYMPH: DO YOU TAKE ANY BLOOD THINNERS? (FOR EXAMPLE- COUMADIN, PLAVIX, AGGRENOX, PLATEL, PRADAXA, OR XARELTO) NO . WHEN WAS YOUR LAST DOSE? DATE: TIME: . NEUROLOGY: HAVE YOU FALLEN IN THE PAST 12 MONTHS? NO . ANY NEW EXTREMITY NUMBNESS OR WEAKNESS? NO . CARDIOLOGY: DO YOU HAVE A PACEMAKER OR DEFIBRILLATOR? PT STATES THAT HE HAS [address] RESPIRATORY: HAVE YOU BEEN SICK IN THE PAST WEEK? NO . FEVER NO . FLU LIKE SYMPTOMS? NO . COUGH NO . INTEGUMENTARY: DO YOU HAVE ANY RASHES OR OPEN SORES? NO . ALLERGIC/IMMUNO: ARE YOU ALLERGIC TO IV DYE? NO . ANY NEW ALLERGIES? NO . PSYCHIATRIC: DO YOU HAVE THOUGHTS OF HURTING YOURSELF OR SOMEONE ELSE? NO . ARE YOU ABUSED, NEGLECTED, OR IN AN UNSAFE ENVIRONMENT? NO . ENDOCRINOLOGY: ARE YOU DIABETIC? NO . OTHER: DO YOU NEED ANY PRESCRIPTIONS? NO . IF YES, PLEASE LIST: ____ . ANY NEW PROBLEMS WITH YOUR MEDICATIONS? NO . WHEN DID YOU LAST EAT? ____ . WHEN DID YOU LAST DRINK? ____ . WHAT DID YOU LAST DRINK? ____ . NAME OF PERSON DRIVING YOU HOME? ____ . DO YOU HAVE ANY OTHER QUESTIONS OR CONCERNS NO . EXAMINATION GENERAL EXAMINATION: TELEMEDICINE USING ZOOM APPLICATION. PATIENT IS ALERT O X [address] SCAN OF THE LEFT HIP DONE ON 11/17/2018 SHOWS EVIDENCE OF ARTHRITIS AND FEMORAL ACETABULAR SPUR FORMATION. ASSESSMENTS LEFT HIP PAIN - M25.552 (PRIMARY) PRIMARY OSTEOARTHRITIS OF LEFT HIP - M16.12 TREATMENT LEFT HIP PAIN CLINICAL NOTES: WE DISCUSSED SEVERAL ISSUES WITH MR. SANTOS'S PAIN MANAGEMENT CASE. I WILL REFER THE PATIENT TO [facility] FOR EVALUATION OF HIS LEFT HIP PAIN. I DISCUSSED THE OPTION OF LEFT HIP INJECTIONS, BUT THE PATIENT PREFERS TO WAIT ON INJECTION THERAPY FOR THE MOMENT. THE PATIENT IS UNABLE TO HAVE MRI STUDIES DUE TO A DCS IMPLANT THAT HE HAS FOR HIS LOW BACK PAIN. THE PATIENT WAS ADVISED TO CONSIDER CONTACTING FELICE SAAVEDRA FROM [facility] TO SEE IF HIS DCS CAN BE REPROGRAMMED TO COVER HIS LEFT HIP PAIN WELL. THE PATIENT WILL CALL NEEDED FOR A FOLLOW UP. INSTRUCTIONS WERE GIVEN, QUESTIONS WERE ANSWERED, PATIENT REPORTS UNDERSTANDING AND AGREES WITH THE PLAN. I, PORSCHE LOVE, DOCUMENTED THE ABOVE INFORMATION ACTING A SCRIBE FOR DR. MODI. I HAVE REVIEWED THE ABOVE DOCUMENT, WRITTEN BY PORSCHE CASTRO AND I VERIFY THAT IT IS ACCURATE. . OTHERS NOTES: PT HAS GIVEN VERBAL CONSENT TO CONDUCT VISIT VIA PHONE/VIRTUAL, UNABLE TO OBTAIN VITAL SIGNS DUE TO VIRTUAL PHONE VISIT. PT APPROVES VIRTUAL VISIT WITH RN, MD MODI AND SCRIBE. DS. DISPOSITION & COMMUNICATION FOLLOW UP CALL NEEDED PRN (REASON: W/ CLINICAL CASE MANAGER; REFER TO NCORTHO) ELECTRONICALLY SIGNED BY MICHAEL MODI MD, MD ON 12/22/2019 AT 03:50 PM EDT DISCLAIMER : THIS IS A VISIT SUMMARY EXTRACTED FROM THE [employer] CHART. IT IS NOT A COPY OF THE [employer] PROGRESS NOTE. IMMANUEL
== END ==
LOC: M TMPAIN 14:30 → M PAIN 14:30
PROVIDERS: ATTEND Anesthesiology
DX: M25.552 Pain in left hip (principal); M16.12 Unilateral primary osteoarthritis, left hip; Z79.899 Other long term (current) drug therapy; Z88.8 Allergy status to other drugs, medicaments and biological substances

== ENCOUNTER → 2020-02-18 | Outpatient (REF) | payer MEDICARE ==
[~2020-02-18] MED LIST changes: +AMLO1TAB24 PO; -AMLO5TAB6 PO
[2020-02-18 16:34] LABS: BASO % 0.4 % (0.0-1.0); EOS # 0.3 10^3/uL (0.0-0.5); EOS % 3.2 % (0.0-3.0); HEMOGLOBIN 15.1 g/dl (13.5-17.5); LYMPH # 2.7 10^3/uL (1.5-5.0); LYMPH % 30.2 % (24.0-44.0); MEAN CORPUSCULAR HGB CONC 32.8 g/dl (32.0-36.5); MEAN CORPUSCULAR VOLUME 85.2 fl (80.0-96.0); MONO # 0.8 10^3/uL (0.0-0.8); MONO % 8.9 % (0.0-5.0); NEUTROPHILS # 5.2 10^3/uL (1.5-8.5); PLATELET COUNT, AUTOMATED 293 10^3/uL (150-450); WHITE BLOOD COUNT 9.1 10^3/uL (4.0-10.0)
[2020-02-18 17:03] LABS: HEMOGLOBIN A1c 6.2 %
[2020-02-18 17:08] LABS: ALBUMIN 3.7 GM/DL (3.2-5.2); ALT/SGPT 30 U/L (12-78); BILIRUBIN,TOTAL 0.3 MG/DL (0.2-1.0); BLOOD UREA NITROGEN 13 MG/DL (7-18); CALCIUM LEVEL 9.2 MG/DL (8.5-10.1); CARBON DIOXIDE LEVEL 30 MEQ/L (21-32); CHLORIDE LEVEL 105 MEQ/L (98-107); CHOLESTEROL LEVEL 221 MG/DL (<200); CHOLESTEROL RISK RATIO 6.906 (<5); CREATININE FOR GFR 1.15 MG/DL (0.70-1.30); GLOMERULAR FILTRATION RATE > 60.0 (>60); GLUCOSE, FASTING 77 MG/DL (70-100); HDL CHOLESTEROL 32 MG/DL (>40); LDL CHOLESTEROL 128 MG/DL (<100); NON-HDL-C 189 MG/DL; POTASSIUM SERUM 5.3 MEQ/L (3.5-5.1); SODIUM LEVEL 138 MEQ/L (136-145); TOTAL PROTEIN 7.4 GM/DL (6.4-8.2); TRIGLYCERIDES LEVEL 303 MG/DL (<150)
== END ==
LOC: M SFHCCLAY 11:25
PROVIDERS: ATTEND Family Medicine
DX: I10 Essential (primary) hypertension (principal); R73.01 Impaired fasting glucose
CPT/HCPCS: 80053; 80061; 83036; 85025; G0463

== ENCOUNTER → 2020-06-23 | Outpatient (REF) | payer MEDICARE, OTHER ==
[2020-06-23 16:40] LABS: BLOOD UREA NITROGEN 15 MG/DL (7-18); CALCIUM LEVEL 9.6 MG/DL (8.5-10.1); CARBON DIOXIDE LEVEL 32 MEQ/L (21-32); CHLORIDE LEVEL 103 MEQ/L (98-107); CREATININE FOR GFR 1.21 MG/DL (0.70-1.30); GLOMERULAR FILTRATION RATE > 60.0 (>60); GLUCOSE, FASTING 65 MG/DL (70-100); POTASSIUM SERUM 4.9 MEQ/L (3.5-5.1); SODIUM LEVEL 138 MEQ/L (136-145)
[2020-06-23 17:37] LABS: HEMOGLOBIN A1c 5.4 %
== END ==
LOC: M SFHCCLAY 14:10
PROVIDERS: ATTEND Family Medicine
DX: R73.01 Impaired fasting glucose (principal)
CPT/HCPCS: 80048; 83036; G0463

== ENCOUNTER → 2021-03-16 | Outpatient (REF) | payer MEDICARE ==
[~2021-03-16] MED LIST changes: +GABA-282 PO; -GABA-843 PO; +MELA3TAB57 PO; -[UNRECOGNIZED DRUG - CODE] PO
[2021-03-16 17:08] LABS: HEMOGLOBIN A1c 5.6 %
[2021-03-16 17:16] LABS: BASO # 0.1 10^3/uL (0.0-0.2); BASO % 0.6 % (0.0-1.0); EOS # 0.4 10^3/uL (0.0-0.5); EOS % 3.8 % (0.0-3.0); HEMATOCRIT 46.4 % (42.0-52.0); HEMOGLOBIN 14.9 g/dl (13.5-17.5); LYMPH # 2.5 10^3/uL (1.5-5.0); LYMPH % 24.6 % (24.0-44.0); MEAN CORPUSCULAR HEMOGLOBIN 27.4 pg (27.0-33.0); MEAN CORPUSCULAR HGB CONC 32.1 g/dl (32.0-36.5); MEAN CORPUSCULAR VOLUME 85.3 fl (80.0-96.0); MONO # 0.8 10^3/uL (0.0-0.8); MONO % 7.4 % (2.0-8.0); NEUTROPHILS # 6.5 10^3/uL (1.5-8.5); NEUTROPHILS % 63.2 % (36.0-66.0); PLATELET COUNT, AUTOMATED 301 10^3/uL (150-450); RED BLOOD COUNT 5.44 10^6/uL (4.30-6.10); WHITE BLOOD COUNT 10.2 10^3/uL (4.0-10.0)
[2021-03-16 17:22] LABS: ALBUMIN 3.5 GM/DL (3.2-5.2); ALT/SGPT 33 U/L (12-78); BILIRUBIN,TOTAL 0.5 MG/DL (0.2-1.0); BLOOD UREA NITROGEN 15 MG/DL (7-18); CALCIUM LEVEL 8.4 MG/DL (8.5-10.1); CARBON DIOXIDE LEVEL 29 MEQ/L (21-32); CHLORIDE LEVEL 105 MEQ/L (98-107); CHOLESTEROL LEVEL 230 MG/DL (<200); CHOLESTEROL RISK RATIO 7.419 (<5); GLOMERULAR FILTRATION RATE > 60.0 (>60); GLUCOSE, FASTING 102 MG/DL (70-100); HDL CHOLESTEROL 31 MG/DL (>40); LDL CHOLESTEROL 153 MG/DL (<100); NON-HDL-C 199 MG/DL; POTASSIUM SERUM 4.9 MEQ/L (3.5-5.1); SODIUM LEVEL 138 MEQ/L (136-145); TOTAL PROTEIN 7.3 GM/DL (6.4-8.2); TRIGLYCERIDES LEVEL 232 MG/DL (<150)
== END ==
LOC: M SFHCCLAY 10:37
PROVIDERS: ATTEND Family Medicine
DX: E78.2 Mixed hyperlipidemia (principal); I10 Essential (primary) hypertension; R73.01 Impaired fasting glucose
CPT/HCPCS: 80053; 80061; 83036; 85025; G0463

== ENCOUNTER → 2021-07-21 | Outpatient (REF) | payer MEDICARE ==
[~2021-07-21] MED LIST changes: -CYMB60CA3 PO; +CYMB60CA4 PO
== END ==
LOC: M SFHCCLAY 11:31
PROVIDERS: ATTEND Family Medicine
DX: J02.9 Acute pharyngitis, unspecified (principal)

== ENCOUNTER → 2021-11-13 | Outpatient (REF) | payer MEDICARE, OTHER ==
[2021-11-13 16:24] LABS: BASO % 0.3 % (0.0-1.0); EOS # 0.2 10^3/uL (0.0-0.5); EOS % 1.8 % (0.0-3.0); HEMOGLOBIN 8.9 g/dl (13.5-17.5); LYMPH # 2.6 10^3/uL (1.5-5.0); LYMPH % 24.6 % (24.0-44.0); MEAN CORPUSCULAR HEMOGLOBIN 27.2 pg (27.0-33.0); MEAN CORPUSCULAR HGB CONC 31.8 g/dl (32.0-36.5); MEAN CORPUSCULAR VOLUME 85.6 fl (80.0-96.0); MONO % 9.8 % (2.0-8.0); NEUTROPHILS # 6.5 10^3/uL (1.5-8.5); PLATELET COUNT, AUTOMATED 427 10^3/uL (150-450); RED BLOOD COUNT 3.27 10^6/uL (4.30-6.10); WHITE BLOOD COUNT 10.4 10^3/uL (4.0-10.0)
[2021-11-13 16:56] LABS: ALBUMIN 2.1 GM/DL (3.2-5.2); ALT/SGPT 12 U/L (12-78); BILIRUBIN,TOTAL 0.4 MG/DL (0.2-1.0); BLOOD UREA NITROGEN 11 MG/DL (7-18); CALCIUM LEVEL 8.4 MG/DL (8.5-10.1); CARBON DIOXIDE LEVEL 25 MEQ/L (21-32); CHLORIDE LEVEL 110 MEQ/L (98-107); CREATININE FOR GFR 0.99 MG/DL (0.70-1.30); GLOMERULAR FILTRATION RATE > 60.0 (>60); GLUCOSE, FASTING 78 MG/DL (70-100); IRON (FE) 24 UG/DL (65-175); POTASSIUM SERUM 3.5 MEQ/L (3.5-5.1); SODIUM LEVEL 142 MEQ/L (136-145); TOTAL PROTEIN 6.3 GM/DL (6.4-8.2)
== END ==
LOC: M SFHCCLAY 11:58
PROVIDERS: ATTEND Family Medicine
DX: D50.9 Iron deficiency anemia, unspecified (principal); I10 Essential (primary) hypertension

== ENCOUNTER → 2021-11-14 | Outpatient (REF) | payer MEDICARE, OTHER ==
[2021-11-14 16:45] LABS: CLOSTRIDIUM DIFFICILE PCR NEGATIVE (NEGATIVE)
== END ==
LOC: M SFHCCLAY 15:31
PROVIDERS: ATTEND Family Medicine
DX: R19.7 Diarrhea, unspecified (principal)

== ENCOUNTER → 2021-11-27 | Outpatient (REF) | payer MEDICARE ==
[~2021-11-27] MED LIST changes: +ATOR80TA59 PO; +BACL10TA2 PO; +CLOP75TA2 PO; +COMMENTS; +FERR325T19 PO; +FLUO40CA PO; +GABA600T4 PO; +MAGN400T2 PO; +METO1TAB7 PO; +PANT40TA29 PO; +POTA1TAB14 PO
[2021-11-27 16:05] LABS: ALBUMIN 2.4 GM/DL (3.2-5.2); ALT/SGPT 18 U/L (12-78); BILIRUBIN,TOTAL 0.2 MG/DL (0.2-1.0); BLOOD UREA NITROGEN 8 MG/DL (7-18); CARBON DIOXIDE LEVEL 22 MEQ/L (21-32); CHLORIDE LEVEL 110 MEQ/L (98-107); CREATININE FOR GFR 0.76 MG/DL (0.70-1.30); GLOMERULAR FILTRATION RATE > 60.0 (>60); GLUCOSE, FASTING 108 MG/DL (70-100); MAGNESIUM LEVEL 1.6 MG/DL (1.8-2.4); POTASSIUM SERUM 4.6 MEQ/L (3.5-5.1); SODIUM LEVEL 141 MEQ/L (136-145); TOTAL PROTEIN 6.8 GM/DL (6.4-8.2)
[2021-11-27 16:07] LABS: HEMATOCRIT 33.6 % (42.0-52.0); HEMOGLOBIN 10.4 g/dl (13.5-17.5); MEAN CORPUSCULAR HEMOGLOBIN 26.8 pg (27.0-33.0); MEAN CORPUSCULAR VOLUME 86.6 fl (80.0-96.0); PLATELET COUNT, AUTOMATED 584 10^3/uL (150-450); RED BLOOD COUNT 3.88 10^6/uL (4.30-6.10); WHITE BLOOD COUNT 14.7 10^3/uL (4.0-10.0)
[2021-11-27 17:06] LABS: BASOPHILS 1 % (0-1); LYMPHOCYTES 17 % (16-44); MONOCYTES 8 % (0-5); NEUTROPHILS 74 % (28-66); PLATELET ESTIMATE INCREASED (NORMAL)
== END ==
LOC: M SFHCCLAY 09:43
PROVIDERS: ATTEND Family Medicine
DX: D50.9 Iron deficiency anemia, unspecified (principal); I10 Essential (primary) hypertension; R19.7 Diarrhea, unspecified

== ENCOUNTER 2021-12-17 07:22 | Inpatient (IN) | payer MEDICARE, MEDICAID ==
[2021-12-17] VITALS (39 sets, daily range): BP systolic 69–139; BP diastolic 47–76
[~2021-12-17] VITALS: Ht 177.8 cm; Wt 112.2 kg
[~2021-12-17 07:22] MED LIST changes: -ATOR80TA59 PO; -BACL10TA2 PO; -CLOP75TA2 PO; -COMMENTS; -FERR325T19 PO; -FLUO40CA PO; -GABA600T4 PO; -MAGN400T2 PO; -METO1TAB7 PO; -PANT40TA29 PO; -POTA1TAB14 PO
[2021-12-17] MEDS ORDERED: PANT40TA29 PO (07:27)
[2021-12-17] MEDS ORDERED: NS 1,000 ML IV ONE ×3 (07:35→18:30)
[2021-12-17] MEDS: MORPHINE 2 MG/ML 1ML VIAL IV PRN ×7 (08:14→23:36)
[2021-12-17] MEDS ORDERED: ISOVUE-370 76% 100ML VIAL As Ordered ONE (08:16)
[2021-12-17 08:33] LABS: HEMATOCRIT 39.1 % (42.0-52.0); HEMOGLOBIN 11.8 g/dl (13.5-17.5); MEAN CORPUSCULAR HEMOGLOBIN 25.5 pg (27.0-33.0); MEAN CORPUSCULAR HGB CONC 30.2 g/dl (32.0-36.5); MEAN CORPUSCULAR VOLUME 84.6 fl (80.0-96.0); PLATELET COUNT, AUTOMATED 795 10^3/uL (150-450); RED BLOOD COUNT 4.62 10^6/uL (4.30-6.10); WHITE BLOOD COUNT 18.2 10^3/uL (4.0-10.0)
[2021-12-17 08:44] LABS: INR 0.9; PROTHROMBIN TIME 12.6 SECONDS (12.7-14.5)
[2021-12-17 08:45] LABS: PARTIAL THROMBOPLASTIN TIME 27.4 SECONDS (25.9-37.0)
[2021-12-17] MEDS ORDERED: LIDOCAINE 2% 5ML JELLY UROJET TOP ONE (08:45)
[2021-12-17] MEDS ORDERED: MORPHINE 2 MG/ML 1ML VIAL IV PRN ×3 (08:45→13:05)
[2021-12-17] MEDS ORDERED: PIPERACILLIN/TAZOBACTAM SOD 4.5 GM in D5W MINI-BAG PLUS 50 ML IV ONE (08:45)
[2021-12-17 09:00] LABS: CK-MB VALUE MASS 1.2 NG/ML (<3.6); MB/CK RELATIVE INDEX 4.8 (< OR =4)
[2021-12-17 09:05] LABS: BASOPHILS 1 % (0-1); LYMPHOCYTES 16 % (16-44); METAMYELOCYTES 1 % (0-0); MONOCYTES 4 % (0-5); NEUTROPHILS 40 % (28-66)
[2021-12-17 09:06] LABS: PLATELET CLUMPS MODERATE AMT; PLATELET ESTIMATE INCREASED (NORMAL)
[2021-12-17 09:07] LABS: POLYCHROMASIA 1+
[2021-12-17 09:09] LABS: ALBUMIN 2.3 GM/DL (3.2-5.2); ALT/SGPT 9 U/L (12-78); AMYLASE 46 U/L (25-115); BILIRUBIN,DIRECT < 0.1 MG/DL (0.0-0.2); BILIRUBIN,TOTAL 0.2 MG/DL (0.2-1.0); BLOOD UREA NITROGEN 15 MG/DL (7-18); CALCIUM LEVEL 9.1 MG/DL (8.5-10.1); CARBON DIOXIDE LEVEL 22 MEQ/L (21-32); CHLORIDE LEVEL 107 MEQ/L (98-107); CREATININE FOR GFR 0.97 MG/DL (0.70-1.30); FREE T4 0.85 NG/DL (0.76-1.46); GLOMERULAR FILTRATION RATE > 60.0 (>60); GLUCOSE, FASTING 167 MG/DL (70-100); LIPASE 68 U/L (73-393); MAGNESIUM LEVEL 1.6 MG/DL (1.8-2.4); POTASSIUM SERUM 3.5 MEQ/L (3.5-5.1); SODIUM LEVEL 140 MEQ/L (136-145); TOTAL PROTEIN 7.5 GM/DL (6.4-8.2)
[2021-12-17] MEDS ORDERED: NS 2,340 ML in IV 1 EA IV ONE (09:25)
[2021-12-17] MEDS ORDERED: LIDOCAINE 2% 100MG/5ML SDV (FOR ANES.) As Ordered ONE (09:36)
[2021-12-17] MEDS ORDERED: propofoL 200 MG/20 ML VIAL As Ordered ONE (09:36)
[2021-12-17] MEDS ORDERED: SUCCINYLCHOLINE 100 MG/5 ML SYRINGE (J0330) As Ordered ONE (09:36)
[2021-12-17] MEDS ORDERED: ROCURONIUM BROMIDE 50 MG/5 ML VIAL As Ordered ONE ×3 (09:36→12:32)
[2021-12-17] MEDS ORDERED: dexameTHASONE 4 MG/ML 1ML VIAL (J1100 PER 1MG) As Ordered ONE (09:37)
[2021-12-17] MEDS ORDERED: METOCLOPRAMIDE INJ 10MG/2ML VIAL (J2765 PER 1) As Ordered ONE (09:37)
[2021-12-17 09:40] LABS: C REACTIVE PROTEIN QUANTITATIV 4.58 MG/DL (0.00-0.30)
[2021-12-17 09:41] LABS: ABG BASE EXCESS -5.7 (-2.0-2.0); ABG HCO3 17.6 MEQ/L (22.0-26.0); ABG O2 SATURATION 97.2 % (95.0-99.0); ABG PARTIAL PRESSURE O2 94.5 mmHg (75.0-100.0); ABG STANDARD HCO3 19.8 MEQ/L (22.0-26.0); ABG TOTAL CO2 18.5 MEQ/L (22.0-29.0); ABG pH (ARTERIAL) 7.416 UNITS (7.350-7.450)
[2021-12-17] MEDS ORDERED: MIDAZOLAM INJ 2MG/2ML VIAL (J2250 PER 1MG) As Ordered ONE (09:43)
[2021-12-17] MEDS ORDERED: fentaNYL 250 MCG/5 ML INJECTION As Ordered ONE (09:43)
[2021-12-17] MEDS ORDERED: ETOMIDATE INJ 20MG/10ML VIAL As Ordered ONE (09:46)
[2021-12-17] MEDS ORDERED: ATOR80TA59 PO (09:58)
[2021-12-17] MEDS ORDERED: GABA600T4 PO (09:58)
[2021-12-17] MEDS ORDERED: BACL10TA2 PO (09:58)
[2021-12-17] MEDS ORDERED: METO1TAB7 PO (09:58)
[2021-12-17] MEDS ORDERED: MAGN400T2 PO (09:58)
[2021-12-17] MEDS ORDERED: POTA1TAB14 PO (09:58)
[2021-12-17] MEDS ORDERED: FLUO40CA PO (09:58)
[2021-12-17] MEDS ORDERED: CLOP75TA2 PO (09:58)
[2021-12-17] MEDS ORDERED: FERR325T19 PO (09:58)
[2021-12-17 10:04] LABS: RSV AMPLIFICATION NEGATIVE (NEGATIVE)
[2021-12-17 10:56] LABS: CK-MB VALUE MASS 1.1 NG/ML (<3.6); MB/CK RELATIVE INDEX 4.23 (< OR =4)
[2021-12-17] MEDS ORDERED: HYDROmorphone HCL 2MG/ML 1ML VIAL As Ordered ONE (11:26)
[2021-12-17] MEDS ORDERED: PHENYLephrine 500MCG 5ML (100MCG/ML) SYRINGE As Ordered ONE ×2 (11:34→12:35)
[2021-12-17 12:15] LABS: ABG BASE EXCESS -9.7 (-2.0-2.0); ABG HCO3 16.8 MEQ/L (22.0-26.0); ABG O2 LITER FLOW 53; ABG O2 SATURATION 98.4 % (95.0-99.0); ABG PARTIAL PRESSURE CO2 39.2 mmHg (35.0-45.0); ABG PARTIAL PRESSURE O2 157.7 mmHg (75.0-100.0); ABG SITE ART LINE; ABG STANDARD HCO3 16.7 MEQ/L (22.0-26.0)
[2021-12-17] MEDS ORDERED: MIDAZOLAM 5MG/ML 1ML VIAL (J2250 PER 1MG) As Ordered ONE (12:29)
[2021-12-17] MEDS ORDERED: ONDANSETRON 4MG/2ML VIAL IV PRN (13:05)
[2021-12-17] MEDS ORDERED: NS 1,000 ML IV SCH (13:05)
[2021-12-17 13:25] LABS: ABG BASE EXCESS -8.8 (-2.0-2.0); ABG HCO3 17.3 MEQ/L (22.0-26.0); ABG O2 SATURATION 97.9 % (95.0-99.0); ABG PARTIAL PRESSURE CO2 38.2 mmHg (35.0-45.0); ABG PARTIAL PRESSURE O2 137.9 mmHg (75.0-100.0); ABG STANDARD HCO3 17.4 MEQ/L (22.0-26.0); ABG TOTAL CO2 18.5 MEQ/L (22.0-29.0); ABG pH (ARTERIAL) 7.274 UNITS (7.350-7.450)
[2021-12-17] MEDS: NS 1,000 ML IV SCH ×3 (13:50→20:54)
[2021-12-17] MEDS ORDERED: propofoL 1,000 MG in IV 1 EA IV SCH (13:50)
[2021-12-17] MEDS ORDERED: NS 500 ML IV ONE (14:25)
[2021-12-17] MEDS: PIPERACILLIN/TAZOBACTAM SOD 3.375 GM in D5W MINI-BAG PLUS 50 ML IV SCH ×2 (14:37→21:15)
[2021-12-17 15:29] LABS: HEMATOCRIT 39.2 % (42.0-52.0); HEMOGLOBIN 11.8 g/dl (13.5-17.5); MEAN CORPUSCULAR HEMOGLOBIN 25.3 pg (27.0-33.0); MEAN CORPUSCULAR HGB CONC 30.1 g/dl (32.0-36.5); MEAN CORPUSCULAR VOLUME 84.1 fl (80.0-96.0); RED BLOOD COUNT 4.66 10^6/uL (4.30-6.10); WHITE BLOOD COUNT 8.1 10^3/uL (4.0-10.0)
[2021-12-17] MEDS: KETOROLAC 30 MG/ML 1ML VIAL IV PRN ×2 (15:32→21:13)
[2021-12-17 15:36] LABS: PLATELET COUNT, AUTOMATED 583 10^3/uL (150-450)
[2021-12-17] MEDS ORDERED: NOREPINEPHRINE 4 MG/4 ML AMP As Ordered ONE (15:37)
[2021-12-17] MEDS: ACETAMINOPHEN 325 MG/10.15 ML UDC GT PRN ×2 (15:51→22:08)
[2021-12-17] MEDS: PANTOPRAZOLE 40MG VIAL IV SCH (15:52)
[2021-12-17 15:56] LABS: LYMPHOCYTES 15 % (16-44); METAMYELOCYTES 5 % (0-0); MONOCYTES 4 % (0-5); MYELOCYTES 1 % (0-0); NEUTROPHILS 52 % (28-66)
[2021-12-17 15:57] LABS: HYPOCHROMASIA 1+; PLATELET CLUMPS MODERATE AMT; PLATELET ESTIMATE NORMAL (NORMAL)
[2021-12-17] MEDS: CHLORHEXIDINE GLUCONATE 0.12 % 15ML UDC (PERIDEX ORAL RINSE) MT SCH ×2 (15:58→21:13)
[2021-12-17] MEDS: MIDAZOLAM INJ 2MG/2ML VIAL (J2250 PER 1MG) IV PRN ×8 (16:00→23:42)
[2021-12-17] MEDS ORDERED: NOREPINEPHRINE BITARTRATE 8 MG in D5W 492 ML IV SCH (16:00)
[2021-12-17 16:14] LABS: ALBUMIN 1.6 GM/DL (3.2-5.2); ALT/SGPT 10 U/L (12-78); BILIRUBIN,TOTAL 0.4 MG/DL (0.2-1.0); BLOOD UREA NITROGEN 17 MG/DL (7-18); CARBON DIOXIDE LEVEL 20 MEQ/L (21-32); CHLORIDE LEVEL 114 MEQ/L (98-107); CHOLESTEROL LEVEL 93 MG/DL (< 200); CPK CREATINE PHOSPHOKINASE 23 U/L (39-308); CREATININE FOR GFR 1.13 MG/DL (0.70-1.30); GLOMERULAR FILTRATION RATE > 60.0 (>60); GLUCOSE, FASTING 192 MG/DL (70-100); LDH LACTATE DEHYDROGENASE 145 U/L (87-241); PHOSPHORUS LEVEL 5.4 MG/DL (2.5-4.9); POTASSIUM SERUM 4.5 MEQ/L (3.5-5.1); SODIUM LEVEL 144 MEQ/L (136-145); TOTAL PROTEIN 4.9 GM/DL (6.4-8.2); TRIGLYCERIDES LEVEL 123 MG/DL (<150)
[2021-12-17] MEDS ORDERED: COMMENTS (16:14)
[2021-12-17] MEDS ORDERED: HOME MED LIST COMPLETE! XX SCH (16:15)
[2021-12-17 18:35] LABS: ABG BASE EXCESS -8.5 (-2.0-2.0); ABG HCO3 16.7 MEQ/L (22.0-26.0); ABG O2 SATURATION 97.2 % (95.0-99.0); ABG PARTIAL PRESSURE CO2 33.6 mmHg (35.0-45.0); ABG PARTIAL PRESSURE O2 101.2 mmHg (75.0-100.0); ABG STANDARD HCO3 17.6 MEQ/L (22.0-26.0); ABG TOTAL CO2 17.8 MEQ/L (22.0-29.0); ABG pH (ARTERIAL) 7.315 UNITS (7.350-7.450)
[2021-12-17] MEDS ORDERED: DEXTROSE 50% 50 ML SYRINGE IV PRN (19:30)
[2021-12-17] MEDS ORDERED: GLUCOSE 4GM CHEW TABLET PO PRN (19:30)
[2021-12-17] MEDS ORDERED: GLUCAGON INJ 1MG VIAL SC PRN (19:30)
[2021-12-17 20:04] LABS: TOXIC VACUOLATION 1+
[2021-12-17 20:33] LABS: CK-MB VALUE MASS < 1.0 NG/ML (<3.6); CPK CREATINE PHOSPHOKINASE 26 U/L (39-308); MB/CK RELATIVE INDEX 3.85 (< OR =4)
[2021-12-17 21:24] LABS: CK-MB VALUE MASS 1.3 NG/ML (<3.6); MB/CK RELATIVE INDEX 7.22 (< OR =4)
[2021-12-17 21:41] LABS: ALBUMIN 1.4 GM/DL (3.2-5.2); BLOOD UREA NITROGEN 20 MG/DL (7-18); CALCIUM LEVEL 7.3 MG/DL (8.5-10.1); CARBON DIOXIDE LEVEL 19 MEQ/L (21-32); CHLORIDE LEVEL 117 MEQ/L (98-107); CREATININE FOR GFR 1.28 MG/DL (0.70-1.30); GLOMERULAR FILTRATION RATE > 60.0 (>60); GLUCOSE, FASTING 149 MG/DL (70-100); MAGNESIUM LEVEL 1.3 MG/DL (1.8-2.4); NT-PRO BNP 4686 PG/ML (<125); PHOSPHORUS LEVEL 4.6 MG/DL (2.5-4.9); POTASSIUM SERUM 4.5 MEQ/L (3.5-5.1); SODIUM LEVEL 143 MEQ/L (136-145)
[2021-12-17] MEDS: INSULIN LISPRO (NovoLOG) PER UNIT SC SCH (23:54)
[2021-12-18] VITALS (68 sets, daily range): BP systolic 87–200; BP diastolic 44–241
[2021-12-18] MEDS: MIDAZOLAM INJ 2MG/2ML VIAL (J2250 PER 1MG) IV PRN ×8 (00:36→23:23)
[2021-12-18] MEDS: MORPHINE 2 MG/ML 1ML VIAL IV PRN ×6 (01:14→23:23)
[2021-12-18] MEDS: ACETAMINOPHEN 325 MG/10.15 ML UDC GT PRN (01:51)
[2021-12-18] MEDS ORDERED: NS 1,000 ML IV ONE (01:55)
[2021-12-18] MEDS: PIPERACILLIN/TAZOBACTAM SOD 3.375 GM in D5W MINI-BAG PLUS 50 ML IV SCH (02:12)
[2021-12-18] MEDS: NOREPINEPHRINE BITARTRATE 8 MG in D5W 492 ML IV SCH ×2 (03:28→06:04)
[2021-12-18] MEDS: NS 1,000 ML IV SCH ×4 (04:52→21:03)
[2021-12-18 05:19] LABS: HEMATOCRIT 31.6 % (42.0-52.0); MEAN CORPUSCULAR HEMOGLOBIN 25.1 pg (27.0-33.0); MEAN CORPUSCULAR HGB CONC 30.1 g/dl (32.0-36.5); MEAN CORPUSCULAR VOLUME 83.4 fl (80.0-96.0); RED BLOOD COUNT 3.79 10^6/uL (4.30-6.10); WHITE BLOOD COUNT 17.4 10^3/uL (4.0-10.0)
[2021-12-18 05:30] LABS: HEMOGLOBIN 9.5 g/dl (13.5-17.5)
[2021-12-18 05:31] LABS: PLATELET COUNT, AUTOMATED 427 10^3/uL (150-450)
[2021-12-18 05:38] LABS: ABG HCO3 15.6 MEQ/L (22.0-26.0); ABG O2 SATURATION 96.1 % (95.0-99.0); ABG PARTIAL PRESSURE CO2 29.1 mmHg (35.0-45.0); ABG PARTIAL PRESSURE O2 87.1 mmHg (75.0-100.0); ABG STANDARD HCO3 17.2 MEQ/L (22.0-26.0); ABG TOTAL CO2 16.5 MEQ/L (22.0-29.0); ABG pH (ARTERIAL) 7.346 UNITS (7.350-7.450)
[2021-12-18 05:41] LABS: CK-MB VALUE MASS 1.3 NG/ML (<3.6); MB/CK RELATIVE INDEX 4.06 (< OR =4)
[2021-12-18 05:43] LABS: ALBUMIN 1.2 GM/DL (3.2-5.2); ALT/SGPT 11 U/L (12-78); BILIRUBIN,TOTAL 0.3 MG/DL (0.2-1.0); BLOOD UREA NITROGEN 21 MG/DL (7-18); CALCIUM LEVEL 7.3 MG/DL (8.5-10.1); CARBON DIOXIDE LEVEL 18 MEQ/L (21-32); CHLORIDE LEVEL 121 MEQ/L (98-107); CHOLESTEROL LEVEL 62 MG/DL (< 200); CPK CREATINE PHOSPHOKINASE 39 U/L (39-308); CREATININE FOR GFR 1.07 MG/DL (0.70-1.30); GLOMERULAR FILTRATION RATE > 60.0 (>60); GLUCOSE, FASTING 131 MG/DL (70-100); LDH LACTATE DEHYDROGENASE 178 U/L (87-241); MAGNESIUM LEVEL 1.4 MG/DL (1.8-2.4); NT-PRO BNP 4204 PG/ML (<125); PHOSPHORUS LEVEL 4.3 MG/DL (2.5-4.9); POTASSIUM SERUM 4.5 MEQ/L (3.5-5.1); SODIUM LEVEL 146 MEQ/L (136-145); TOTAL PROTEIN 4.3 GM/DL (6.4-8.2); TRIGLYCERIDES LEVEL 95 MG/DL (<150)
[2021-12-18 05:46] LABS: ATYPICAL LYMPH 1 % (0-5); LYMPHOCYTES 7 % (16-44); METAMYELOCYTES 14 % (0-0); MONOCYTES 1 % (0-5); MYELOCYTES 4 % (0-0); NEUTROPHILS 40 % (28-66); PLATELET CLUMPS SMALL AMT; PLATELET ESTIMATE NORMAL (NORMAL); TOXIC VACUOLATION 1+
[2021-12-18 05:47] LABS: HYPOCHROMASIA 1+; SMUDGE CELLS 1+
[2021-12-18] MEDS: INSULIN LISPRO (NovoLOG) PER UNIT SC SCH ×3 (05:57→18:00)
[2021-12-18] MEDS ORDERED: REFRIGERATOR IV KEYS XX PRN (06:30)
[2021-12-18] MEDS: MIDAZOLAM HCL 100 MG in D5W 80 ML IV SCH ×2 (07:19→22:52)
[2021-12-18] MEDS: IPRATROPIUM 0.5MG/ALBUTEROL 2.5MG INH SOL UD 3ML (DUONEB) NEB SCH ×4 (08:00→19:29)
[2021-12-18] MEDS ORDERED: MAG SULF 1GM/100ML (MAG RUN) 1 GM in IV 1 EA IV ONE (08:00)
[2021-12-18] MEDS: CHLORHEXIDINE GLUCONATE 0.12 % 15ML UDC (PERIDEX ORAL RINSE) MT SCH ×2 (08:19→20:29)
[2021-12-18] MEDS: CLOPIDOGREL 75 MG TAB PO SCH (08:20)
[2021-12-18] MEDS: PANTOPRAZOLE 40MG VIAL IV SCH (08:20)
[2021-12-18] MEDS: KETOROLAC 30 MG/ML 1ML VIAL IV PRN ×2 (08:21→19:56)
[2021-12-18] MEDS ORDERED: MORPHINE SULF IN 0.9% NACL 100 MG in IV 1 EA IV SCH ×4 (08:50→09:00)
[2021-12-18] MEDS ORDERED: NS 500 ML IV ONE (08:50)
[2021-12-18] MEDS ORDERED: EPIDURAL/PCA KEYS XX PRN (09:00)
[2021-12-18] MEDS: MORPHINE SULFATE INJ 100 MG in NS 90 ML IV SCH ×2 (10:47→23:27)
[2021-12-18] MEDS ORDERED: metroNIDAZOLE 500 MG in IV 1 EA IV SCH (11:00)
[2021-12-18] MEDS: CIPROFLOXACIN 400 MG in IV 1 EA IV SCH ×2 (11:33→21:46)
[2021-12-18] MEDS: metroNIDAZOLE 500 MG in IV 1 EA IV SCH ×2 (13:03→20:29)
[2021-12-18 15:26] LABS: ABG BASE EXCESS -9.4 (-2.0-2.0); ABG HCO3 15.3 MEQ/L (22.0-26.0); ABG O2 SATURATION 97.4 % (95.0-99.0); ABG PARTIAL PRESSURE CO2 29.4 mmHg (35.0-45.0); ABG PARTIAL PRESSURE O2 105.9 mmHg (75.0-100.0); ABG STANDARD HCO3 16.9 MEQ/L (22.0-26.0); ABG TOTAL CO2 16.2 MEQ/L (22.0-29.0); ABG pH (ARTERIAL) 7.335 UNITS (7.350-7.450)
[2021-12-18 16:03] LABS: HEMATOCRIT 30.7 % (42.0-52.0); HEMOGLOBIN 9.1 g/dl (13.5-17.5); MEAN CORPUSCULAR HEMOGLOBIN 24.8 pg (27.0-33.0); MEAN CORPUSCULAR HGB CONC 29.6 g/dl (32.0-36.5); MEAN CORPUSCULAR VOLUME 83.7 fl (80.0-96.0); PLATELET COUNT, AUTOMATED 376 10^3/uL (150-450); RED BLOOD COUNT 3.67 10^6/uL (4.30-6.10); WHITE BLOOD COUNT 11.1 10^3/uL (4.0-10.0)
[2021-12-18 16:46] LABS: ALBUMIN 1.3 GM/DL (3.2-5.2); ALT/SGPT 10 U/L (12-78); BILIRUBIN,TOTAL 0.2 MG/DL (0.2-1.0); BLOOD UREA NITROGEN 22 MG/DL (7-18); CALCIUM LEVEL 7.7 MG/DL (8.5-10.1); CARBON DIOXIDE LEVEL 18 MEQ/L (21-32); CHLORIDE LEVEL 117 MEQ/L (98-107); CHOLESTEROL LEVEL 68 MG/DL (< 200); CPK CREATINE PHOSPHOKINASE 43 U/L (39-308); CREATININE FOR GFR 1.08 MG/DL (0.70-1.30); GLOMERULAR FILTRATION RATE > 60.0 (>60); GLUCOSE, FASTING 125 MG/DL (70-100); LDH LACTATE DEHYDROGENASE 168 U/L (87-241); MAGNESIUM LEVEL 1.8 MG/DL (1.8-2.4); PHOSPHORUS LEVEL 3.9 MG/DL (2.5-4.9); POTASSIUM SERUM 4.4 MEQ/L (3.5-5.1); SODIUM LEVEL 143 MEQ/L (136-145); TRIGLYCERIDES LEVEL 166 MG/DL (<150)
[2021-12-18 17:23] LABS: LYMPHOCYTES 8 % (16-44); METAMYELOCYTES 18 % (0-0); MONOCYTES 4 % (0-5); MYELOCYTES 1 % (0-0); NEUTROPHILS 29 % (28-66)
[2021-12-18 17:24] LABS: TOXIC VACUOLATION 2+
[2021-12-18 17:26] LABS: PLATELET ESTIMATE NORMAL (NORMAL)
[2021-12-19] VITALS (77 sets, daily range): BP systolic 96–165; BP diastolic 40–98
[2021-12-19] MEDS: IPRATROPIUM 0.5MG/ALBUTEROL 2.5MG INH SOL UD 3ML (DUONEB) NEB SCH ×6 (00:24→19:55)
[2021-12-19] MEDS: MIDAZOLAM INJ 2MG/2ML VIAL (J2250 PER 1MG) IV PRN ×5 (01:44→16:30)
[2021-12-19] MEDS: MORPHINE 2 MG/ML 1ML VIAL IV PRN ×3 (01:45→11:57)
[2021-12-19] MEDS: ACETAMINOPHEN 325 MG/10.15 ML UDC GT PRN ×3 (02:11→20:01)
[2021-12-19] MEDS: NS 1,000 ML IV SCH ×4 (02:54→22:02)
[2021-12-19] MEDS: metroNIDAZOLE 500 MG in IV 1 EA IV SCH ×3 (04:36→21:01)
[2021-12-19] MEDS: INSULIN LISPRO (NovoLOG) PER UNIT SC SCH ×4 (06:00→18:00)
[2021-12-19 06:11] LABS: ABG BASE EXCESS -11.7 (-2.0-2.0); ABG HCO3 14.4 MEQ/L (22.0-26.0); ABG O2 SATURATION 96.5 % (95.0-99.0); ABG PARTIAL PRESSURE CO2 33.2 mmHg (35.0-45.0); ABG PARTIAL PRESSURE O2 92.7 mmHg (75.0-100.0); ABG STANDARD HCO3 15.1 MEQ/L (22.0-26.0); ABG TOTAL CO2 15.4 MEQ/L (22.0-29.0); ABG pH (ARTERIAL) 7.254 UNITS (7.350-7.450)
[2021-12-19 06:18] LABS: HEMATOCRIT 29.1 % (42.0-52.0); HEMOGLOBIN 8.6 g/dl (13.5-17.5); MEAN CORPUSCULAR HEMOGLOBIN 25.4 pg (27.0-33.0); MEAN CORPUSCULAR HGB CONC 29.6 g/dl (32.0-36.5); MEAN CORPUSCULAR VOLUME 85.8 fl (80.0-96.0); PLATELET COUNT, AUTOMATED 314 10^3/uL (150-450); RED BLOOD COUNT 3.39 10^6/uL (4.30-6.10); WHITE BLOOD COUNT 7.8 10^3/uL (4.0-10.0)
[2021-12-19] MEDS: NOREPINEPHRINE BITARTRATE 8 MG in D5W 492 ML IV SCH (06:19)
[2021-12-19 06:40] LABS: ALBUMIN 1.2 GM/DL (3.2-5.2); ALT/SGPT 10 U/L (12-78); BILIRUBIN,TOTAL 0.2 MG/DL (0.2-1.0); BLOOD UREA NITROGEN 24 MG/DL (7-18); CARBON DIOXIDE LEVEL 17 MEQ/L (21-32); CHLORIDE LEVEL 118 MEQ/L (98-107); CREATININE FOR GFR 1.14 MG/DL (0.70-1.30); GLOMERULAR FILTRATION RATE > 60.0 (>60); GLUCOSE, FASTING 125 MG/DL (70-100); MAGNESIUM LEVEL 1.8 MG/DL (1.8-2.4); POTASSIUM SERUM 4.5 MEQ/L (3.5-5.1); SODIUM LEVEL 144 MEQ/L (136-145); TOTAL PROTEIN 4.4 GM/DL (6.4-8.2)
[2021-12-19 07:45] LABS: LYMPHOCYTES 9 % (16-44); METAMYELOCYTES 2 % (0-0); NEUTROPHILS 87 % (28-66); PLATELET ESTIMATE NORMAL (NORMAL)
[2021-12-19] MEDS: CIPROFLOXACIN 400 MG in IV 1 EA IV SCH ×2 (10:02→22:26)
[2021-12-19] MEDS: CHLORHEXIDINE GLUCONATE 0.12 % 15ML UDC (PERIDEX ORAL RINSE) MT SCH ×2 (10:03→21:01)
[2021-12-19] MEDS: CLOPIDOGREL 75 MG TAB PO SCH (10:03)
[2021-12-19] MEDS: PANTOPRAZOLE 40MG VIAL IV SCH (10:03)
[2021-12-19 10:30] LABS: CK-MB VALUE MASS 1.5 NG/ML (<3.6); MB/CK RELATIVE INDEX 3.06 (< OR =4)
[2021-12-19 11:48] LABS: ABG BASE EXCESS -11.1 (-2.0-2.0); ABG HCO3 15.7 MEQ/L (22.0-26.0); ABG O2 SATURATION 92.6 % (95.0-99.0); ABG PARTIAL PRESSURE CO2 38.7 mmHg (35.0-45.0); ABG PARTIAL PRESSURE O2 73.2 mmHg (75.0-100.0); ABG STANDARD HCO3 15.5 MEQ/L (22.0-26.0); ABG TOTAL CO2 16.9 MEQ/L (22.0-29.0)
[2021-12-19 11:51] LABS: ABG pH (ARTERIAL) 7.225 UNITS (7.350-7.450)
[2021-12-19] MEDS ORDERED: SODIUM BICARBONATE 8.4% INJ 50 ML SYRINGE As Ordered ONE (12:19)
[2021-12-19] MEDS ORDERED: FLUCONAZOLE 200 MG in IV 1 EA IV ONE (12:20)
[2021-12-19] MEDS ORDERED: FLUCONAZOLE 100 MG in IV 1 EA IV SCH (12:20)
[2021-12-19] MEDS ORDERED: SODIUM BICARBONATE 8.4% INJ 50 ML SYRINGE IV STA ×2 (12:20→15:57)
[2021-12-19] MEDS: MORPHINE SULFATE INJ 100 MG in NS 90 ML IV SCH ×2 (12:31→13:00)
[2021-12-19] MEDS: MIDAZOLAM HCL 100 MG in D5W 80 ML IV SCH (15:02)
[2021-12-19] MEDS: FLUCONAZOLE 400 MG in IV 1 EA IV SCH (15:04)
[2021-12-19 15:33] LABS: ABG O2 SATURATION 97.4 % (95.0-99.0); ABG PARTIAL PRESSURE CO2 38.8 mmHg (35.0-45.0); ABG PARTIAL PRESSURE O2 104.1 mmHg (75.0-100.0); ABG STANDARD HCO3 17.9 MEQ/L (22.0-26.0); ABG TOTAL CO2 19.2 MEQ/L (22.0-29.0); ABG pH (ARTERIAL) 7.285 UNITS (7.350-7.450)
[2021-12-19] MEDS ORDERED: FLUCONAZOLE 400 MG in IV 1 EA IV ONE (16:00)
[2021-12-19 19:58] LABS: ABG BASE EXCESS -7.3 (-2.0-2.0); ABG HCO3 18.9 MEQ/L (22.0-26.0); ABG O2 SATURATION 95.2 % (95.0-99.0); ABG PARTIAL PRESSURE CO2 40.9 mmHg (35.0-45.0); ABG PARTIAL PRESSURE O2 79.5 mmHg (75.0-100.0); ABG STANDARD HCO3 18.4 MEQ/L (22.0-26.0); ABG TOTAL CO2 20.1 MEQ/L (22.0-29.0); ABG pH (ARTERIAL) 7.282 UNITS (7.350-7.450)
[2021-12-19] MEDS: KETOROLAC 30 MG/ML 1ML VIAL IV PRN (21:47)
[2021-12-19] MEDS ORDERED: SODIUM BICARBONATE 100 MEQ in D5W 1,000 ML IV SCH (22:00)
[2021-12-20] VITALS (63 sets, daily range): BP systolic 80–145; BP diastolic 40–74
[2021-12-20] MEDS: IPRATROPIUM 0.5MG/ALBUTEROL 2.5MG INH SOL UD 3ML (DUONEB) NEB SCH ×7 (00:04→23:26)
[2021-12-20] MEDS: NS 1,000 ML IV SCH ×2 (00:24→06:51)
[2021-12-20] MEDS: ACETAMINOPHEN 325 MG/10.15 ML UDC GT PRN (00:34)
[2021-12-20] MEDS: MORPHINE SULFATE INJ 100 MG in NS 90 ML IV SCH ×2 (05:26→22:45)
[2021-12-20] MEDS: metroNIDAZOLE 500 MG in IV 1 EA IV SCH ×3 (05:30→20:14)
[2021-12-20] MEDS: INSULIN LISPRO (NovoLOG) PER UNIT SC SCH ×4 (06:00→18:00)
[2021-12-20 06:06] LABS: ABG BASE EXCESS -5.9 (-2.0-2.0); ABG HCO3 20.6 MEQ/L (22.0-26.0); ABG O2 SATURATION 98.6 % (95.0-99.0); ABG PARTIAL PRESSURE O2 145.6 mmHg (75.0-100.0); ABG STANDARD HCO3 19.6 MEQ/L (22.0-26.0); ABG TOTAL CO2 22.1 MEQ/L (22.0-29.0)
[2021-12-20 06:11] LABS: HEMATOCRIT 24.5 % (42.0-52.0); HEMOGLOBIN 7.1 g/dl (13.5-17.5); MEAN CORPUSCULAR HEMOGLOBIN 24.9 pg (27.0-33.0); PLATELET COUNT, AUTOMATED 260 10^3/uL (150-450); RED BLOOD COUNT 2.85 10^6/uL (4.30-6.10); WHITE BLOOD COUNT 8.1 10^3/uL (4.0-10.0)
[2021-12-20 06:44] LABS: ALT/SGPT 7 U/L (12-78); BILIRUBIN,TOTAL 0.3 MG/DL (0.2-1.0); BLOOD UREA NITROGEN 22 MG/DL (7-18); CALCIUM LEVEL 7.9 MG/DL (8.5-10.1); CARBON DIOXIDE LEVEL 22 MEQ/L (21-32); CHLORIDE LEVEL 121 MEQ/L (98-107); CHOLESTEROL LEVEL 59 MG/DL (< 200); CPK CREATINE PHOSPHOKINASE 31 U/L (39-308); CREATININE FOR GFR 1.07 MG/DL (0.70-1.30); GLOMERULAR FILTRATION RATE > 60.0 (>60); GLUCOSE, FASTING 115 MG/DL (70-100); LDH LACTATE DEHYDROGENASE 259 U/L (87-241); MAGNESIUM LEVEL 2.1 MG/DL (1.8-2.4); PHOSPHORUS LEVEL 3.7 MG/DL (2.5-4.9); POTASSIUM SERUM 3.9 MEQ/L (3.5-5.1); SODIUM LEVEL 148 MEQ/L (136-145); TOTAL PROTEIN 3.9 GM/DL (6.4-8.2); TRIGLYCERIDES LEVEL 123 MG/DL (<150)
[2021-12-20 07:18] LABS: ANISOCYTOSIS 1+; ATYPICAL LYMPH 1 % (0-5); LYMPHOCYTES 11 % (16-44); METAMYELOCYTES 1 % (0-0); NEUTROPHILS 84 % (28-66); PLATELET ESTIMATE NORMAL (NORMAL); TOXIC GRANULATION 3+; TOXIC VACUOLATION 1+
[2021-12-20] MEDS: MIDAZOLAM HCL 100 MG in D5W 80 ML IV SCH (07:26)
[2021-12-20] MEDS ORDERED: NS 0.45% 1,000 ML IV SCH (08:25)
[2021-12-20] MEDS: CLOPIDOGREL 75 MG TAB PO SCH (08:34)
[2021-12-20] MEDS: PANTOPRAZOLE 40MG VIAL IV SCH (08:34)
[2021-12-20] MEDS: CHLORHEXIDINE GLUCONATE 0.12 % 15ML UDC (PERIDEX ORAL RINSE) MT SCH ×2 (08:34→20:14)
[2021-12-20] MEDS: CIPROFLOXACIN 400 MG in IV 1 EA IV SCH ×2 (10:00→21:43)
[2021-12-20] MEDS ORDERED: D5W 1,000 ML IV SCH (12:40)
[2021-12-20 14:24] LABS: ABG pH (ARTERIAL) 7.308 UNITS (7.350-7.450)
[2021-12-20 14:25] LABS: ABG BASE EXCESS -7.2 (-2.0-2.0); ABG HCO3 18.4 MEQ/L (22.0-26.0); ABG O2 SATURATION 93.4 % (95.0-99.0); ABG PARTIAL PRESSURE CO2 37.6 mmHg (35.0-45.0); ABG PARTIAL PRESSURE O2 73.6 mmHg (75.0-100.0); ABG STANDARD HCO3 18.4 MEQ/L (22.0-26.0); ABG TOTAL CO2 19.6 MEQ/L (22.0-29.0)
[2021-12-20] MEDS: FLUCONAZOLE 400 MG in IV 1 EA IV SCH (14:30)
[2021-12-20 14:48] LABS: HEMATOCRIT 23.4 % (42.0-52.0); MEAN CORPUSCULAR HGB CONC 29.5 g/dl (32.0-36.5); MEAN CORPUSCULAR VOLUME 84.8 fl (80.0-96.0); PLATELET COUNT, AUTOMATED 242 10^3/uL (150-450); RED BLOOD COUNT 2.76 10^6/uL (4.30-6.10); WHITE BLOOD COUNT 7.5 10^3/uL (4.0-10.0)
[2021-12-20 14:50] LABS: HEMOGLOBIN 6.9 g/dl (13.5-17.5)
[2021-12-20 15:05] LABS: BLOOD UREA NITROGEN 20 MG/DL (7-18); CALCIUM LEVEL 8.1 MG/DL (8.5-10.1); CARBON DIOXIDE LEVEL 24 MEQ/L (21-32); CHLORIDE LEVEL 121 MEQ/L (98-107); CREATININE FOR GFR 1.05 MG/DL (0.70-1.30); GLOMERULAR FILTRATION RATE > 60.0 (>60); GLUCOSE, FASTING 111 MG/DL (70-100); POTASSIUM SERUM 3.5 MEQ/L (3.5-5.1); SODIUM LEVEL 149 MEQ/L (136-145)
[2021-12-20 15:42] LABS: ATYPICAL LYMPH 2 % (0-5); LYMPHOCYTES 9 % (16-44); METAMYELOCYTES 1 % (0-0); NEUTROPHILS 69 % (28-66); PLATELET ESTIMATE NORMAL (NORMAL); POIKILOCYTOSIS 1+
[2021-12-20] MEDS ORDERED: MULTIVITAMIN -ADULT INJECTION 10 ML, ZINC/COPPER/MANGANESE/SELENIUM 1 ML in AMINO AC/EL... IV SCH (18:00)
[2021-12-20] MEDS ORDERED: FAT EMULSION IV 250 ML IV ONE (18:00)
[2021-12-21] VITALS (30 sets, daily range): BP systolic 94–132; BP diastolic 48–73
[2021-12-21] MEDS: MIDAZOLAM HCL 100 MG in D5W 80 ML IV SCH ×2 (03:04→17:50)
[2021-12-21] MEDS: IPRATROPIUM 0.5MG/ALBUTEROL 2.5MG INH SOL UD 3ML (DUONEB) NEB SCH ×5 (03:39→23:54)
[2021-12-21] MEDS: KETOROLAC 30 MG/ML 1ML VIAL IV PRN ×2 (05:01→12:25)
[2021-12-21] MEDS: metroNIDAZOLE 500 MG in IV 1 EA IV SCH ×3 (05:22→21:45)
[2021-12-21 05:24] LABS: HEMATOCRIT 31.7 % (42.0-52.0); MEAN CORPUSCULAR HEMOGLOBIN 26.6 pg (27.0-33.0); MEAN CORPUSCULAR HGB CONC 30.9 g/dl (32.0-36.5); MEAN CORPUSCULAR VOLUME 85.9 fl (80.0-96.0); PLATELET COUNT, AUTOMATED 237 10^3/uL (150-450); RED BLOOD COUNT 3.69 10^6/uL (4.30-6.10)
[2021-12-21 05:25] LABS: HEMOGLOBIN 9.8 g/dl (13.5-17.5)
[2021-12-21 05:47] LABS: ALBUMIN 1.1 GM/DL (3.2-5.2); ALT/SGPT 6 U/L (12-78); BILIRUBIN,TOTAL 0.4 MG/DL (0.2-1.0); BLOOD UREA NITROGEN 17 MG/DL (7-18); CARBON DIOXIDE LEVEL 25 MEQ/L (21-32); CHLORIDE LEVEL 119 MEQ/L (98-107); GLOMERULAR FILTRATION RATE > 60.0 (>60); GLUCOSE, FASTING 135 MG/DL (70-100); POTASSIUM SERUM 3.5 MEQ/L (3.5-5.1); SODIUM LEVEL 147 MEQ/L (136-145); TOTAL PROTEIN 4.1 GM/DL (6.4-8.2)
[2021-12-21] MEDS: INSULIN LISPRO (NovoLOG) PER UNIT SC SCH ×5 (05:48→23:53)
[2021-12-21 05:50] LABS: EOSINOPHILS 3 % (0-3); LYMPHOCYTES 11 % (16-44); NEUTROPHILS 86 % (28-66)
[2021-12-21 05:51] LABS: TOXIC VACUOLATION 1+
[2021-12-21 05:53] LABS: ANISOCYTOSIS 1+; PLATELET ESTIMATE NORMAL (NORMAL)
[2021-12-21 06:01] LABS: ABG BASE EXCESS -6.2 (-2.0-2.0); ABG HCO3 19.9 MEQ/L (22.0-26.0); ABG O2 SATURATION 94.5 % (95.0-99.0); ABG PARTIAL PRESSURE CO2 42.2 mmHg (35.0-45.0); ABG STANDARD HCO3 19.3 MEQ/L (22.0-26.0); ABG TOTAL CO2 21.2 MEQ/L (22.0-29.0); ABG pH (ARTERIAL) 7.292 UNITS (7.350-7.450)
[2021-12-21] MEDS ORDERED: FUROSEMIDE 20MG/2ML VIAL (J1940) IV ONE (09:00)
[2021-12-21] MEDS: CHLORHEXIDINE GLUCONATE 0.12 % 15ML UDC (PERIDEX ORAL RINSE) MT SCH ×2 (09:44→21:45)
[2021-12-21] MEDS: CLOPIDOGREL 75 MG TAB PO SCH (09:44)
[2021-12-21] MEDS: PANTOPRAZOLE 40MG VIAL IV SCH (09:44)
[2021-12-21] MEDS: CIPROFLOXACIN 400 MG in IV 1 EA IV SCH ×2 (09:44→22:32)
[2021-12-21] MEDS: MIDAZOLAM INJ 2MG/2ML VIAL (J2250 PER 1MG) IV PRN ×6 (14:05→23:46)
[2021-12-21] MEDS: FLUCONAZOLE 400 MG in IV 1 EA IV SCH (14:05)
[2021-12-21 14:51] LABS: BLOOD UREA NITROGEN 16 MG/DL (7-18); CALCIUM LEVEL 8.4 MG/DL (8.5-10.1); CARBON DIOXIDE LEVEL 26 MEQ/L (21-32); CHLORIDE LEVEL 118 MEQ/L (98-107); CREATININE FOR GFR 1.12 MG/DL (0.70-1.30); GLOMERULAR FILTRATION RATE > 60.0 (>60); GLUCOSE, FASTING 127 MG/DL (70-100); POTASSIUM SERUM 3.2 MEQ/L (3.5-5.1); SODIUM LEVEL 148 MEQ/L (136-145)
[2021-12-21] MEDS ORDERED: POTASSIUM CHLORIDE 10% LIQ 20 MEQ/15 ML UDC FT ONE (15:05)
[2021-12-21] MEDS: MORPHINE SULFATE INJ 100 MG in NS 90 ML IV SCH (16:12)
[2021-12-21] MEDS ORDERED: AMINO AC/ELECTROLYTE/DEX/CALC 2,000 ML IV SCH (18:00)
[2021-12-21] MEDS ORDERED: FAT EMULSION IV 250 ML IV ONE (18:00)
[2021-12-22] VITALS (29 sets, daily range): BP systolic 84–136; BP diastolic 54–83
[2021-12-22] MEDS: ACETAMINOPHEN 325 MG/10.15 ML UDC GT PRN ×2 (00:22→23:31)
[2021-12-22] MEDS: MIDAZOLAM INJ 2MG/2ML VIAL (J2250 PER 1MG) IV PRN ×7 (00:22→23:31)
[2021-12-22] MEDS: MORPHINE 2 MG/ML 1ML VIAL IV PRN ×3 (00:23→03:46)
[2021-12-22] MEDS: IPRATROPIUM 0.5MG/ALBUTEROL 2.5MG INH SOL UD 3ML (DUONEB) NEB SCH ×3 (03:41→11:05)
[2021-12-22 04:56] LABS: HEMATOCRIT 33.8 % (42.0-52.0); HEMOGLOBIN 10.3 g/dl (13.5-17.5); MEAN CORPUSCULAR HEMOGLOBIN 26.8 pg (27.0-33.0); MEAN CORPUSCULAR HGB CONC 30.5 g/dl (32.0-36.5); PLATELET COUNT, AUTOMATED 209 10^3/uL (150-450); RED BLOOD COUNT 3.84 10^6/uL (4.30-6.10); WHITE BLOOD COUNT 12.7 10^3/uL (4.0-10.0)
[2021-12-22] MEDS: metroNIDAZOLE 500 MG in IV 1 EA IV SCH ×3 (04:58→20:19)
[2021-12-22 05:10] LABS: ANISOCYTOSIS 1+; ATYPICAL LYMPH 1 % (0-5); EOSINOPHILS 4 % (0-3); LYMPHOCYTES 14 % (16-44); MONOCYTES 3 % (0-5); NEUTROPHILS 78 % (28-66); PLATELET ESTIMATE NORMAL (NORMAL)
[2021-12-22 05:26] LABS: ALBUMIN 1.1 GM/DL (3.2-5.2); ALT/SGPT < 6 U/L (12-78); BILIRUBIN,TOTAL 0.3 MG/DL (0.2-1.0); BLOOD UREA NITROGEN 16 MG/DL (7-18); CALCIUM LEVEL 8.5 MG/DL (8.5-10.1); CARBON DIOXIDE LEVEL 24 MEQ/L (21-32); CHLORIDE LEVEL 119 MEQ/L (98-107); CHOLESTEROL LEVEL 61 MG/DL (< 200); CPK CREATINE PHOSPHOKINASE 91 U/L (39-308); CREATININE FOR GFR 1.16 MG/DL (0.70-1.30); GLOMERULAR FILTRATION RATE > 60.0 (>60); GLUCOSE, FASTING 115 MG/DL (70-100); LDH LACTATE DEHYDROGENASE 369 U/L (87-241); MAGNESIUM LEVEL 1.9 MG/DL (1.8-2.4); PHOSPHORUS LEVEL 4.4 MG/DL (2.5-4.9); POTASSIUM SERUM 3.6 MEQ/L (3.5-5.1); SODIUM LEVEL 150 MEQ/L (136-145); TOTAL PROTEIN 4.6 GM/DL (6.4-8.2); TRIGLYCERIDES LEVEL 148 MG/DL (<150)
[2021-12-22 05:51] LABS: ABG BASE EXCESS -5.3 (-2.0-2.0); ABG HCO3 21.8 MEQ/L (22.0-26.0); ABG O2 SATURATION 98.1 % (95.0-99.0); ABG PARTIAL PRESSURE CO2 50.3 mmHg (35.0-45.0); ABG PARTIAL PRESSURE O2 134.5 mmHg (75.0-100.0); ABG STANDARD HCO3 20.1 MEQ/L (22.0-26.0); ABG TOTAL CO2 23.4 MEQ/L (22.0-29.0); ABG pH (ARTERIAL) 7.255 UNITS (7.350-7.450)
[2021-12-22] MEDS: INSULIN LISPRO (NovoLOG) PER UNIT SC SCH ×4 (06:07→23:38)
[2021-12-22] MEDS: CHLORHEXIDINE GLUCONATE 0.12 % 15ML UDC (PERIDEX ORAL RINSE) MT SCH ×2 (08:53→20:18)
[2021-12-22] MEDS: PANTOPRAZOLE 40MG VIAL IV SCH (08:53)
[2021-12-22] MEDS: FUROSEMIDE 20MG/2ML VIAL (J1940) IV SCH ×2 (08:54→17:04)
[2021-12-22] MEDS: CLOPIDOGREL 75 MG TAB PO SCH (08:54)
[2021-12-22 09:05] LABS: ABG BASE EXCESS -3.5 (-2.0-2.0); ABG HCO3 21.7 MEQ/L (22.0-26.0); ABG O2 SATURATION 95.6 % (95.0-99.0); ABG PARTIAL PRESSURE CO2 39.4 mmHg (35.0-45.0); ABG PARTIAL PRESSURE O2 80.3 mmHg (75.0-100.0); ABG STANDARD HCO3 21.5 MEQ/L (22.0-26.0); ABG TOTAL CO2 22.9 MEQ/L (22.0-29.0); ABG pH (ARTERIAL) 7.358 UNITS (7.350-7.450)
[2021-12-22] MEDS: D5W 1,000 ML IV SCH ×2 (09:06→18:53)
[2021-12-22] MEDS: SENNA 8.6 MG TAB (SENOKOT) PO SCH (09:24)
[2021-12-22] MEDS: HEPARIN SOD (PORCINE) 5000UNITS/ML 1ML VIAL/SYRINGE SQ SCH ×2 (09:25→17:04)
[2021-12-22] MEDS: CIPROFLOXACIN 400 MG in IV 1 EA IV SCH ×2 (09:25→21:40)
[2021-12-22] MEDS: fentaNYL CITRATE 1,000 MCG in NS 80 ML IV SCH (09:54)
[2021-12-22] MEDS: LEVALBUTEROL 1.25 MG/0.5 ML CONCENTRATE NEB INH SCH ×4 (11:04→20:13)
[2021-12-22] MEDS: MIDAZOLAM HCL 100 MG in D5W 80 ML IV SCH (11:08)
[2021-12-22] MEDS: MICAFUNGIN SODIUM 100 MG in D5W MINI-BAG PLUS 100 ML IV SCH (11:16)
[2021-12-22 16:48] LABS: BLOOD UREA NITROGEN 16 MG/DL (7-18); CALCIUM LEVEL 8.3 MG/DL (8.5-10.1); CARBON DIOXIDE LEVEL 27 MEQ/L (21-32); CHLORIDE LEVEL 115 MEQ/L (98-107); CREATININE FOR GFR 1.13 MG/DL (0.70-1.30); GLOMERULAR FILTRATION RATE > 60.0 (>60); GLUCOSE, FASTING 131 MG/DL (70-100); POTASSIUM SERUM 2.9 MEQ/L (3.5-5.1); SODIUM LEVEL 146 MEQ/L (136-145)
[2021-12-22] MEDS: KCL 20MEQ IN 100ML SWI (KRUN) 20 MEQ in IV 1 EA IV SCH ×4 (17:05→18:03)
[2021-12-22] MEDS ORDERED: MULTIVITAMIN -ADULT INJECTION 10 ML, ZINC/COPPER/MANGANESE/SELENIUM 1 ML in AMINO AC/EL... IV SCH (18:00)
[2021-12-22] MEDS ORDERED: FAT EMULSION IV 250 ML IV ONE (18:00)
[2021-12-23] VITALS (50 sets, daily range): BP systolic 103–166; BP diastolic 57–103
[2021-12-23] MEDS: LEVALBUTEROL 1.25 MG/0.5 ML CONCENTRATE NEB INH SCH ×7 (00:07→23:20)
[2021-12-23] MEDS ORDERED: MAG SULF 1GM/100ML (MAG RUN) 1 GM in IV 1 EA IV SCH (01:30)
[2021-12-23] MEDS: HEPARIN SOD (PORCINE) 5000UNITS/ML 1ML VIAL/SYRINGE SQ SCH ×3 (02:00→16:48)
[2021-12-23] MEDS: MIDAZOLAM INJ 2MG/2ML VIAL (J2250 PER 1MG) IV PRN ×3 (03:24→21:44)
[2021-12-23] MEDS: D5W 1,000 ML IV SCH (04:07)
[2021-12-23 04:51] LABS: HEMATOCRIT 31.7 % (42.0-52.0); HEMOGLOBIN 9.5 g/dl (13.5-17.5); MEAN CORPUSCULAR HEMOGLOBIN 26.1 pg (27.0-33.0); MEAN CORPUSCULAR VOLUME 87.1 fl (80.0-96.0); PLATELET COUNT, AUTOMATED 196 10^3/uL (150-450); RED BLOOD COUNT 3.64 10^6/uL (4.30-6.10)
[2021-12-23] MEDS: metroNIDAZOLE 500 MG in IV 1 EA IV SCH ×3 (05:18→23:40)
[2021-12-23 05:20] LABS: ALBUMIN 1.1 GM/DL (3.2-5.2); ALT/SGPT < 6 U/L (12-78); BILIRUBIN,TOTAL 0.2 MG/DL (0.2-1.0); BLOOD UREA NITROGEN 17 MG/DL (7-18); CALCIUM LEVEL 7.9 MG/DL (8.5-10.1); CARBON DIOXIDE LEVEL 25 MEQ/L (21-32); CHLORIDE LEVEL 113 MEQ/L (98-107); CREATININE FOR GFR 1.05 MG/DL (0.70-1.30); GLOMERULAR FILTRATION RATE > 60.0 (>60); GLUCOSE, FASTING 131 MG/DL (70-100); MAGNESIUM LEVEL 1.9 MG/DL (1.8-2.4); PHOSPHORUS LEVEL 3.3 MG/DL (2.5-4.9); SODIUM LEVEL 145 MEQ/L (136-145); TOTAL PROTEIN 4.4 GM/DL (6.4-8.2)
[2021-12-23] MEDS: INSULIN LISPRO (NovoLOG) PER UNIT SC SCH (05:21)
[2021-12-23] MEDS ORDERED: MAG SULF 1GM/100ML (MAG RUN) 1 GM in IV 1 EA IV ONE (05:40)
[2021-12-23] MEDS: MIDAZOLAM HCL 100 MG in D5W 80 ML IV SCH (06:43)
[2021-12-23] MEDS: fentaNYL CITRATE 1,000 MCG in NS 80 ML IV SCH ×2 (08:08→10:00)
[2021-12-23] MEDS: KCL 20MEQ IN 100ML SWI (KRUN) 20 MEQ in IV 1 EA IV SCH ×8 (08:09→20:32)
[2021-12-23] MEDS: SENNA 8.6 MG TAB (SENOKOT) PO SCH (08:42)
[2021-12-23] MEDS: CHLORHEXIDINE GLUCONATE 0.12 % 15ML UDC (PERIDEX ORAL RINSE) MT SCH ×2 (08:42→20:28)
[2021-12-23] MEDS: FUROSEMIDE 20MG/2ML VIAL (J1940) IV SCH (08:42)
[2021-12-23] MEDS: CLOPIDOGREL 75 MG TAB PO SCH (08:42)
[2021-12-23] MEDS: PANTOPRAZOLE 40MG VIAL IV SCH (08:42)
[2021-12-23 09:02] LABS: ABG BASE EXCESS -2.7 (-2.0-2.0); ABG HCO3 22.6 MEQ/L (22.0-26.0); ABG O2 SATURATION 93.9 % (95.0-99.0); ABG PARTIAL PRESSURE CO2 41.1 mmHg (35.0-45.0); ABG PARTIAL PRESSURE O2 71.2 mmHg (75.0-100.0); ABG STANDARD HCO3 22.1 MEQ/L (22.0-26.0); ABG TOTAL CO2 23.9 MEQ/L (22.0-29.0); ABG pH (ARTERIAL) 7.358 UNITS (7.350-7.450)
[2021-12-23] MEDS: CEFEPIME HCL 2 GM in D5W MINI-BAG PLUS 50 ML IV SCH ×2 (09:49→17:35)
[2021-12-23] MEDS ORDERED: ISOVUE-370 76% 100ML VIAL As Ordered ONE (10:23)
[2021-12-23] MEDS: MICAFUNGIN SODIUM 100 MG in D5W MINI-BAG PLUS 100 ML IV SCH (11:59)
[2021-12-23] MEDS: fentaNYL 100 MCG/2 ML INJECTION IV PRN (16:48)
[2021-12-23 16:50] LABS: BLOOD UREA NITROGEN 14 MG/DL (7-18); CALCIUM LEVEL 7.9 MG/DL (8.5-10.1); CARBON DIOXIDE LEVEL 27 MEQ/L (21-32); CHLORIDE LEVEL 110 MEQ/L (98-107); CREATININE FOR GFR 0.99 MG/DL (0.70-1.30); GLOMERULAR FILTRATION RATE > 60.0 (>60); GLUCOSE, FASTING 134 MG/DL (70-100); POTASSIUM SERUM 3.1 MEQ/L (3.5-5.1); SODIUM LEVEL 144 MEQ/L (136-145)
[2021-12-23] MEDS ORDERED: AMINO AC/ELECTROLYTE/DEX/CALC 2,000 ML IV SCH (18:00)
[2021-12-23] MEDS ORDERED: FAT EMULSION IV 250 ML IV ONE (18:00)
[2021-12-23] MEDS: ACETAMINOPHEN 325 MG/10.15 ML UDC GT PRN (21:44)
[2021-12-24] VITALS (46 sets, daily range): BP systolic 101–151; BP diastolic 64–91
[2021-12-24] MEDS: HEPARIN SOD (PORCINE) 5000UNITS/ML 1ML VIAL/SYRINGE SQ SCH ×3 (00:42→17:19)
[2021-12-24] MEDS: CEFEPIME HCL 2 GM in D5W MINI-BAG PLUS 50 ML IV SCH ×2 (00:42→09:18)
[2021-12-24] MEDS: D5W 1,000 ML IV SCH ×2 (02:04→08:14)
[2021-12-24] MEDS: MIDAZOLAM HCL 100 MG in D5W 80 ML IV SCH ×2 (02:52→21:19)
[2021-12-24] MEDS: LEVALBUTEROL 1.25 MG/0.5 ML CONCENTRATE NEB INH SCH ×6 (03:35→23:17)
[2021-12-24] MEDS: MIDAZOLAM INJ 2MG/2ML VIAL (J2250 PER 1MG) IV PRN ×2 (03:39→19:23)
[2021-12-24] MEDS: fentaNYL 100 MCG/2 ML INJECTION IV PRN ×3 (03:42→16:20)
[2021-12-24 04:20] LABS: HEMATOCRIT 32.5 % (42.0-52.0); HEMOGLOBIN 10.3 g/dl (13.5-17.5); MEAN CORPUSCULAR HEMOGLOBIN 26.5 pg (27.0-33.0); MEAN CORPUSCULAR HGB CONC 31.7 g/dl (32.0-36.5); MEAN CORPUSCULAR VOLUME 83.8 fl (80.0-96.0); PLATELET COUNT, AUTOMATED 251 10^3/uL (150-450); RED BLOOD COUNT 3.88 10^6/uL (4.30-6.10); WHITE BLOOD COUNT 10.6 10^3/uL (4.0-10.0)
[2021-12-24 04:41] LABS: ALBUMIN 1.1 GM/DL (3.2-5.2); ALT/SGPT 8 U/L (12-78); BILIRUBIN,TOTAL 0.2 MG/DL (0.2-1.0); BLOOD UREA NITROGEN 14 MG/DL (7-18); CARBON DIOXIDE LEVEL 25 MEQ/L (21-32); CHLORIDE LEVEL 110 MEQ/L (98-107); GLOMERULAR FILTRATION RATE > 60.0 (>60); GLUCOSE, FASTING 207 MG/DL (70-100); PHOSPHORUS LEVEL 3.6 MG/DL (2.5-4.9); POTASSIUM SERUM 3.7 MEQ/L (3.5-5.1); SODIUM LEVEL 143 MEQ/L (136-145); TOTAL PROTEIN 4.8 GM/DL (6.4-8.2)
[2021-12-24] MEDS: fentaNYL CITRATE 1,000 MCG in NS 80 ML IV SCH (04:46)
[2021-12-24 06:10] LABS: ABG BASE EXCESS -0.7 (-2.0-2.0); ABG HCO3 23.1 MEQ/L (22.0-26.0); ABG O2 SATURATION 98.4 % (95.0-99.0); ABG PARTIAL PRESSURE CO2 34.9 mmHg (35.0-45.0); ABG PARTIAL PRESSURE O2 133.9 mmHg (75.0-100.0); ABG STANDARD HCO3 23.9 MEQ/L (22.0-26.0); ABG TOTAL CO2 24.1 MEQ/L (22.0-29.0); ABG pH (ARTERIAL) 7.438 UNITS (7.350-7.450)
[2021-12-24] MEDS: metroNIDAZOLE 500 MG in IV 1 EA IV SCH (07:24)
[2021-12-24] MEDS: CLOPIDOGREL 75 MG TAB PO SCH (08:11)
[2021-12-24] MEDS: PANTOPRAZOLE 40MG VIAL IV SCH (08:12)
[2021-12-24] MEDS: CHLORHEXIDINE GLUCONATE 0.12 % 15ML UDC (PERIDEX ORAL RINSE) MT SCH ×2 (08:14→21:17)
[2021-12-24] MEDS: SENNA 8.6 MG TAB (SENOKOT) PO SCH (08:14)
[2021-12-24] MEDS: FUROSEMIDE 20MG/2ML VIAL (J1940) IV SCH ×2 (09:18→17:19)
[2021-12-24] MEDS: MICAFUNGIN SODIUM 100 MG in D5W MINI-BAG PLUS 100 ML IV SCH (10:38)
[2021-12-24] MEDS: MEROPENEM INJ 1 GM in IV 1 EA IV SCH ×2 (11:49→19:23)
[2021-12-24] MEDS ORDERED: VANCOMYCIN HCL 1,000 MG, VIAL MATE ADAPTER 1 EACH in NS 250 ML IV ONE (13:00)
[2021-12-24] MEDS: VANCOMYCIN HCL 1,000 MG, VIAL MATE ADAPTER 1 EACH in NS 250 ML IV SCH ×2 (13:35→21:18)
[2021-12-24] MEDS ORDERED: SODIUM CHLORIDE 0.9% INJ 10 ML SYR IV PRN (16:30)
[2021-12-24 16:32] LABS: BLOOD UREA NITROGEN 15 MG/DL (7-18); CALCIUM LEVEL 7.7 MG/DL (8.5-10.1); CARBON DIOXIDE LEVEL 28 MEQ/L (21-32); CHLORIDE LEVEL 106 MEQ/L (98-107); CREATININE FOR GFR 0.86 MG/DL (0.70-1.30); GLOMERULAR FILTRATION RATE > 60.0 (>60); GLUCOSE, FASTING 111 MG/DL (70-100); MAGNESIUM LEVEL 1.9 MG/DL (1.8-2.4); POTASSIUM SERUM 3.5 MEQ/L (3.5-5.1); SODIUM LEVEL 140 MEQ/L (136-145)
[2021-12-24] MEDS ORDERED: MULTIVITAMIN -ADULT INJECTION 10 ML, ZINC/COPPER/MANGANESE/SELENIUM 1 ML in AMINO AC/EL... IV SCH (18:00)
[2021-12-24] MEDS ORDERED: MAG SULF 1GM/100ML (MAG RUN) 1 GM in IV 1 EA IV ONE (18:00)
[2021-12-24] MEDS ORDERED: FAT EMULSION IV 250 ML IV ONE (18:00)
[2021-12-24] MEDS ORDERED: KCL 20MEQ IN 100ML SWI (KRUN) 20 MEQ in IV 1 EA IV ONE ×2 (20:00)
[2021-12-24] MEDS: SODIUM CHLORIDE 0.9% INJ 10 ML SYR IV SCH (21:17)
[2021-12-25] VITALS (29 sets, daily range): BP systolic 100–137; BP diastolic 56–94
[2021-12-25] MEDS: fentaNYL CITRATE 1,000 MCG in NS 80 ML IV SCH ×2
[2021-12-25] MEDS: MIDAZOLAM INJ 2MG/2ML VIAL (J2250 PER 1MG) IV PRN ×4 (00:25→06:41)
[2021-12-25] MEDS: HEPARIN SOD (PORCINE) 5000UNITS/ML 1ML VIAL/SYRINGE SQ SCH ×3 (01:03→16:28)
[2021-12-25] MEDS: LEVALBUTEROL 1.25 MG/0.5 ML CONCENTRATE NEB INH SCH ×5 (03:10→19:15)
[2021-12-25] MEDS: MEROPENEM INJ 1 GM in IV 1 EA IV SCH ×3 (03:32→20:03)
[2021-12-25 05:21] LABS: HEMATOCRIT 39.7 % (42.0-52.0); HEMOGLOBIN 12.2 g/dl (13.5-17.5); MEAN CORPUSCULAR HEMOGLOBIN 26.6 pg (27.0-33.0); MEAN CORPUSCULAR HGB CONC 30.7 g/dl (32.0-36.5); MEAN CORPUSCULAR VOLUME 86.5 fl (80.0-96.0); PLATELET COUNT, AUTOMATED 257 10^3/uL (150-450); RED BLOOD COUNT 4.59 10^6/uL (4.30-6.10); WHITE BLOOD COUNT 10.7 10^3/uL (4.0-10.0)
[2021-12-25] MEDS: SODIUM CHLORIDE 0.9% INJ 10 ML SYR IV SCH ×3 (05:42→17:47)
[2021-12-25 05:47] LABS: ALT/SGPT < 6 U/L (12-78); BILIRUBIN,TOTAL 0.2 MG/DL (0.2-1.0); BLOOD UREA NITROGEN 16 MG/DL (7-18); CALCIUM LEVEL 8.2 MG/DL (8.5-10.1); CARBON DIOXIDE LEVEL 25 MEQ/L (21-32); CHLORIDE LEVEL 106 MEQ/L (98-107); CREATININE FOR GFR 0.82 MG/DL (0.70-1.30); GLOMERULAR FILTRATION RATE > 60.0 (>60); GLUCOSE, FASTING 118 MG/DL (70-100); MAGNESIUM LEVEL 2.1 MG/DL (1.8-2.4); PHOSPHORUS LEVEL 3.4 MG/DL (2.5-4.9); POTASSIUM SERUM 3.8 MEQ/L (3.5-5.1); SODIUM LEVEL 139 MEQ/L (136-145); TOTAL PROTEIN 5.9 GM/DL (6.4-8.2); VANCOMYCIN LEVEL TROUGH 22.4 UG/ML (10.0-20.0)
[2021-12-25 06:07] LABS: ABG BASE EXCESS 2.5 (-2.0-2.0); ABG HCO3 26.3 MEQ/L (22.0-26.0); ABG O2 SATURATION 97.6 % (95.0-99.0); ABG PARTIAL PRESSURE CO2 37.8 mmHg (35.0-45.0); ABG PARTIAL PRESSURE O2 105.6 mmHg (75.0-100.0); ABG STANDARD HCO3 26.7 MEQ/L (22.0-26.0); ABG TOTAL CO2 27.5 MEQ/L (22.0-29.0); ABG pH (ARTERIAL) 7.461 UNITS (7.350-7.450)
[2021-12-25] MEDS: SYMBICORT 160/4.5MCG INHALER 6GM INH SCH ×2 (09:04→19:15)
[2021-12-25] MEDS: PANTOPRAZOLE 40MG VIAL IV SCH (09:56)
[2021-12-25] MEDS: CHLORHEXIDINE GLUCONATE 0.12 % 15ML UDC (PERIDEX ORAL RINSE) MT SCH ×2 (09:56→20:03)
[2021-12-25] MEDS: VANCOMYCIN HCL 750 MG, VIAL MATE ADAPTER 1 EACH in NS 250 ML IV SCH ×2 (09:56→17:49)
[2021-12-25] MEDS: SENNA 8.6 MG TAB (SENOKOT) PO SCH (09:57)
[2021-12-25] MEDS: FUROSEMIDE 20MG/2ML VIAL (J1940) IV SCH ×2 (09:57→16:28)
[2021-12-25] MEDS: CLOPIDOGREL 75 MG TAB PO SCH (09:58)
[2021-12-25] MEDS: fentaNYL 100 MCG/2 ML INJECTION IV PRN (10:42)
[2021-12-25] MEDS: MICAFUNGIN SODIUM 100 MG in D5W MINI-BAG PLUS 100 ML IV SCH (11:45)
[2021-12-25] MEDS ORDERED: LIDOCAINE 1% MDV 20ML VIAL As Ordered ONE (12:08)
[2021-12-25] MEDS: ACETAMINOPHEN 325 MG/10.15 ML UDC GT PRN (16:29)
[2021-12-25] MEDS ORDERED: COPPER IV SCH ×4 (18:00)
[2021-12-25] MEDS ORDERED: ZINC IV SCH ×4 (18:00)
[2021-12-25] MEDS ORDERED: SELENIUM IV SCH ×4 (18:00)
[2021-12-25] MEDS ORDERED: MANGANESE IV SCH ×4 (18:00)
[2021-12-25] MEDS ORDERED: [UNRECOGNIZED DRUG - OTHER] IV SCH ×4 (18:00)
[2021-12-25] MEDS ORDERED: FAT EMULSION IV 250 ML IV ONE (18:00)
[2021-12-25] MEDS ORDERED: MULTIVITAMIN ADULT IV SCH ×4 (18:00)
[2021-12-25] MEDS: IBUPROFEN 200MG TAB PO PRN (20:08)
[2021-12-26] VITALS (51 sets, daily range): BP systolic 99–139; BP diastolic 56–103
[2021-12-26] MEDS: LEVALBUTEROL 1.25 MG/0.5 ML CONCENTRATE NEB INH SCH ×7 (00:01→23:43)
[2021-12-26] MEDS: VANCOMYCIN HCL 750 MG, VIAL MATE ADAPTER 1 EACH in NS 250 ML IV SCH ×3 (01:59→18:19)
[2021-12-26] MEDS: HEPARIN SOD (PORCINE) 5000UNITS/ML 1ML VIAL/SYRINGE SQ SCH ×3 (01:59→18:18)
[2021-12-26] MEDS: MEROPENEM INJ 1 GM in IV 1 EA IV SCH ×3 (03:40→20:04)
[2021-12-26] MEDS: MIDAZOLAM INJ 2MG/2ML VIAL (J2250 PER 1MG) IV PRN ×5 (04:07→23:47)
[2021-12-26] MEDS: ACETAMINOPHEN 325 MG/10.15 ML UDC GT PRN ×2 (04:32→22:06)
[2021-12-26] MEDS: fentaNYL 100 MCG/2 ML INJECTION IV PRN ×10 (04:44→23:29)
[2021-12-26 05:27] LABS: HEMATOCRIT 32.4 % (42.0-52.0); HEMOGLOBIN 10.5 g/dl (13.5-17.5); MEAN CORPUSCULAR HEMOGLOBIN 30.5 pg (27.0-33.0); MEAN CORPUSCULAR HGB CONC 32.4 g/dl (32.0-36.5); MEAN CORPUSCULAR VOLUME 94.2 fl (80.0-96.0); PLATELET COUNT, AUTOMATED 398 10^3/uL (150-450); RED BLOOD COUNT 3.44 10^6/uL (4.30-6.10); WHITE BLOOD COUNT 16.1 10^3/uL (4.0-10.0)
[2021-12-26 05:58] LABS: ABG BASE EXCESS 2.6 (-2.0-2.0); ABG HCO3 25.7 MEQ/L (22.0-26.0); ABG O2 SATURATION 96.5 % (95.0-99.0); ABG PARTIAL PRESSURE CO2 34.6 mmHg (35.0-45.0); ABG PARTIAL PRESSURE O2 87.2 mmHg (75.0-100.0); ABG STANDARD HCO3 26.7 MEQ/L (22.0-26.0); ABG TOTAL CO2 26.8 MEQ/L (22.0-29.0); ABG pH (ARTERIAL) 7.489 UNITS (7.350-7.450)
[2021-12-26] MEDS: SODIUM CHLORIDE 0.9% INJ 10 ML SYR IV SCH ×2 (06:19→18:00)
[2021-12-26 07:57] LABS: ALT/SGPT < 6 U/L (12-78); BILIRUBIN,TOTAL 0.2 MG/DL (0.2-1.0); BLOOD UREA NITROGEN 25 MG/DL (7-18); CALCIUM LEVEL 7.9 MG/DL (8.5-10.1); CARBON DIOXIDE LEVEL 27 MEQ/L (21-32); CHLORIDE LEVEL 105 MEQ/L (98-107); CREATININE FOR GFR 0.63 MG/DL (0.70-1.30); GLOMERULAR FILTRATION RATE > 60.0 (>60); GLUCOSE, FASTING 119 MG/DL (70-100); MAGNESIUM LEVEL 2.1 MG/DL (1.8-2.4); PHOSPHORUS LEVEL 3.1 MG/DL (2.5-4.9); POTASSIUM SERUM 3.6 MEQ/L (3.5-5.1); SODIUM LEVEL 139 MEQ/L (136-145); TOTAL PROTEIN 5.1 GM/DL (6.4-8.2)
[2021-12-26] MEDS: SYMBICORT 160/4.5MCG INHALER 6GM INH SCH ×2 (08:29→19:13)
[2021-12-26] MEDS: PANTOPRAZOLE 40MG VIAL IV SCH (08:34)
[2021-12-26] MEDS: CLOPIDOGREL 75 MG TAB PO SCH (08:34)
[2021-12-26] MEDS: SENNA 8.6 MG TAB (SENOKOT) PO SCH (08:34)
[2021-12-26] MEDS: CHLORHEXIDINE GLUCONATE 0.12 % 15ML UDC (PERIDEX ORAL RINSE) MT SCH ×2 (08:36→20:04)
[2021-12-26] MEDS ORDERED: MIDAZOLAM HCL 100 MG in D5W 80 ML IV SCH (11:00)
[2021-12-26] MEDS ORDERED: REFRIGERATOR IV KEYS XX PRN (11:00)
[2021-12-26] MEDS ORDERED: LIDOCAINE 1% MDV 20ML VIAL As Ordered ONE (11:35)
[2021-12-26] MEDS: MICAFUNGIN SODIUM 100 MG in D5W MINI-BAG PLUS 100 ML IV SCH (13:15)
[2021-12-26] MEDS: POLYVINYL ALCOHOL OPHTH SOLN 15 ML(LIQUITEARS) OU PRN (17:01)
[2021-12-26] MEDS ORDERED: [UNRECOGNIZED DRUG - REMARK] IV SCH (18:00)
[2021-12-26] MEDS ORDERED: FAT EMULSION IV 250 ML IV ONE (18:00)
[2021-12-26] MEDS: IBUPROFEN 200MG TAB PO PRN (23:58)
[2021-12-27] VITALS (65 sets, daily range): BP systolic 75–121; BP diastolic 48–80
[2021-12-27] MEDS: MIDAZOLAM INJ 2MG/2ML VIAL (J2250 PER 1MG) IV PRN ×5 (00:22→22:26)
[2021-12-27] MEDS: fentaNYL 100 MCG/2 ML INJECTION IV PRN ×5 (00:53→21:28)
[2021-12-27] MEDS: HEPARIN SOD (PORCINE) 5000UNITS/ML 1ML VIAL/SYRINGE SQ SCH ×3 (01:19→17:00)
[2021-12-27] MEDS: VANCOMYCIN HCL 750 MG, VIAL MATE ADAPTER 1 EACH in NS 250 ML IV SCH ×3 (01:20→18:29)
[2021-12-27] MEDS: MEROPENEM INJ 1 GM in IV 1 EA IV SCH ×3 (03:05→20:08)
[2021-12-27] MEDS: LEVALBUTEROL 1.25 MG/0.5 ML CONCENTRATE NEB INH SCH ×5 (04:54→19:23)
[2021-12-27] MEDS: SODIUM CHLORIDE 0.9% INJ 10 ML SYR IV SCH ×2 (05:06→18:29)
[2021-12-27 05:13] LABS: HEMATOCRIT 32.8 % (42.0-52.0); HEMOGLOBIN 10.2 g/dl (13.5-17.5); MEAN CORPUSCULAR HEMOGLOBIN 26.2 pg (27.0-33.0); MEAN CORPUSCULAR HGB CONC 31.1 g/dl (32.0-36.5); MEAN CORPUSCULAR VOLUME 84.1 fl (80.0-96.0); PLATELET COUNT, AUTOMATED 509 10^3/uL (150-450); WHITE BLOOD COUNT 22.1 10^3/uL (4.0-10.0)
[2021-12-27 05:47] LABS: ALT/SGPT 7 U/L (12-78); BILIRUBIN,TOTAL 0.2 MG/DL (0.2-1.0); BLOOD UREA NITROGEN 31 MG/DL (7-18); CARBON DIOXIDE LEVEL 28 MEQ/L (21-32); CHLORIDE LEVEL 103 MEQ/L (98-107); CREATININE FOR GFR 0.66 MG/DL (0.70-1.30); GLOMERULAR FILTRATION RATE > 60.0 (>60); GLUCOSE, FASTING 105 MG/DL (70-100); MAGNESIUM LEVEL 2.1 MG/DL (1.8-2.4); PHOSPHORUS LEVEL 3.9 MG/DL (2.5-4.9); POTASSIUM SERUM 3.9 MEQ/L (3.5-5.1); SODIUM LEVEL 139 MEQ/L (136-145); TOTAL PROTEIN 5.2 GM/DL (6.4-8.2)
[2021-12-27 05:52] LABS: ABG BASE EXCESS -0.6 (-2.0-2.0); ABG HCO3 22.7 MEQ/L (22.0-26.0); ABG O2 SATURATION 97.8 % (95.0-99.0); ABG PARTIAL PRESSURE CO2 32.3 mmHg (35.0-45.0); ABG PARTIAL PRESSURE O2 110.2 mmHg (75.0-100.0); ABG TOTAL CO2 23.7 MEQ/L (22.0-29.0); ABG pH (ARTERIAL) 7.464 UNITS (7.350-7.450)
[2021-12-27] MEDS: SYMBICORT 160/4.5MCG INHALER 6GM INH SCH ×2 (07:48→19:23)
[2021-12-27] MEDS: CHLORHEXIDINE GLUCONATE 0.12 % 15ML UDC (PERIDEX ORAL RINSE) MT SCH ×2 (09:19→20:08)
[2021-12-27] MEDS: PANTOPRAZOLE 40MG VIAL IV SCH (09:19)
[2021-12-27] MEDS: CLOPIDOGREL 75 MG TAB PO SCH (09:20)
[2021-12-27] MEDS: SENNA 8.6 MG TAB (SENOKOT) PO SCH (09:20)
[2021-12-27] MEDS: POLYVINYL ALCOHOL OPHTH SOLN 15 ML(LIQUITEARS) OU PRN (09:21)
[2021-12-27] MEDS ORDERED: dexmedeTOMidine 200 MCG in IV 1 EA IV SCH (09:30)
[2021-12-27] MEDS: FUROSEMIDE 20MG/2ML VIAL (J1940) IV SCH ×2 (10:15→20:08)
[2021-12-27] MEDS: MICAFUNGIN SODIUM 100 MG in D5W MINI-BAG PLUS 100 ML IV SCH (11:06)
[2021-12-27] MEDS ORDERED: FAT EMULSION IV 250 ML IV ONE (18:00)
[2021-12-27] MEDS ORDERED: ZINC IV SCH ×8 (18:00)
[2021-12-27] MEDS ORDERED: MULTIVITAMIN ADULT IV SCH ×8 (18:00)
[2021-12-27] MEDS ORDERED: [UNRECOGNIZED DRUG - OTHER] IV SCH ×4 (18:00)
[2021-12-27] MEDS ORDERED: COPPER IV SCH ×8 (18:00)
[2021-12-27] MEDS ORDERED: [UNRECOGNIZED DRUG - OTHER] IV SCH ×4 (18:00)
[2021-12-27] MEDS ORDERED: SELENIUM IV SCH ×8 (18:00)
[2021-12-27] MEDS ORDERED: MANGANESE IV SCH ×8 (18:00)
[2021-12-27] MEDS: ACETAMINOPHEN 325 MG/10.15 ML UDC GT PRN (21:32)
[2021-12-28] VITALS (47 sets, daily range): BP systolic 98–136; BP diastolic 55–88
[2021-12-28] MEDS: HEPARIN SOD (PORCINE) 5000UNITS/ML 1ML VIAL/SYRINGE SQ SCH ×3 (00:07→17:46)
[2021-12-28] MEDS: fentaNYL 100 MCG/2 ML INJECTION IV PRN (00:07)
[2021-12-28] MEDS: MIDAZOLAM INJ 2MG/2ML VIAL (J2250 PER 1MG) IV PRN ×3 (00:30→01:50)
[2021-12-28] MEDS: LEVALBUTEROL 1.25 MG/0.5 ML CONCENTRATE NEB INH SCH ×6 (00:51→20:27)
[2021-12-28] MEDS: VANCOMYCIN HCL 750 MG, VIAL MATE ADAPTER 1 EACH in NS 250 ML IV SCH ×3 (01:17→17:46)
[2021-12-28 04:05] LABS: HEMATOCRIT 29.5 % (42.0-52.0); HEMOGLOBIN 9.6 g/dl (13.5-17.5); MEAN CORPUSCULAR HEMOGLOBIN 28.2 pg (27.0-33.0); MEAN CORPUSCULAR HGB CONC 32.5 g/dl (32.0-36.5); MEAN CORPUSCULAR VOLUME 86.5 fl (80.0-96.0); RED BLOOD COUNT 3.41 10^6/uL (4.30-6.10); WHITE BLOOD COUNT 18.9 10^3/uL (4.0-10.0)
[2021-12-28 04:15] LABS: PLATELET COUNT, AUTOMATED 639 10^3/uL (150-450)
[2021-12-28] MEDS: MEROPENEM INJ 1 GM in IV 1 EA IV SCH ×3 (04:38→19:37)
[2021-12-28] MEDS: SODIUM CHLORIDE 0.9% INJ 10 ML SYR IV SCH ×2 (05:17→18:55)
[2021-12-28 05:23] LABS: ALBUMIN 1.1 GM/DL (3.2-5.2); ALT/SGPT 7 U/L (12-78); BILIRUBIN,TOTAL 0.2 MG/DL (0.2-1.0); BLOOD UREA NITROGEN 30 MG/DL (7-18); CALCIUM LEVEL 8.1 MG/DL (8.5-10.1); CARBON DIOXIDE LEVEL 28 MEQ/L (21-32); CHLORIDE LEVEL 104 MEQ/L (98-107); CREATININE FOR GFR 0.57 MG/DL (0.70-1.30); GLOMERULAR FILTRATION RATE > 60.0 (>60); GLUCOSE, FASTING 102 MG/DL (70-100); MAGNESIUM LEVEL 2.2 MG/DL (1.8-2.4); PHOSPHORUS LEVEL 3.6 MG/DL (2.5-4.9); POTASSIUM SERUM 3.9 MEQ/L (3.5-5.1); SODIUM LEVEL 139 MEQ/L (136-145); TOTAL PROTEIN 5.4 GM/DL (6.4-8.2)
[2021-12-28 05:55] LABS: ABG BASE EXCESS 2.2 (-2.0-2.0); ABG HCO3 25.3 MEQ/L (22.0-26.0); ABG O2 SATURATION 97.4 % (95.0-99.0); ABG PARTIAL PRESSURE CO2 33.6 mmHg (35.0-45.0); ABG PARTIAL PRESSURE O2 97.2 mmHg (75.0-100.0); ABG STANDARD HCO3 26.4 MEQ/L (22.0-26.0); ABG TOTAL CO2 26.3 MEQ/L (22.0-29.0); ABG pH (ARTERIAL) 7.494 UNITS (7.350-7.450)
[2021-12-28] MEDS: SYMBICORT 160/4.5MCG INHALER 6GM INH SCH ×2 (07:16→20:27)
[2021-12-28] MEDS: PANTOPRAZOLE 40MG VIAL IV SCH (08:32)
[2021-12-28] MEDS: SENNA 8.6 MG TAB (SENOKOT) PO SCH (08:32)
[2021-12-28] MEDS: CLOPIDOGREL 75 MG TAB PO SCH (08:32)
[2021-12-28] MEDS: CHLORHEXIDINE GLUCONATE 0.12 % 15ML UDC (PERIDEX ORAL RINSE) MT SCH (08:32)
[2021-12-28] MEDS: FUROSEMIDE 20MG/2ML VIAL (J1940) IV SCH ×2 (08:33→19:38)
[2021-12-28] MEDS ORDERED: FUROSEMIDE 40MG/4ML VIAL (J1940) IV ONE (09:00)
[2021-12-28 09:04] LABS: ABG BASE EXCESS 4.5 (-2.0-2.0); ABG O2 SATURATION 98.6 % (95.0-99.0); ABG PARTIAL PRESSURE CO2 37.6 mmHg (35.0-45.0); ABG PARTIAL PRESSURE O2 141.4 mmHg (75.0-100.0); ABG STANDARD HCO3 28.5 MEQ/L (22.0-26.0); ABG TOTAL CO2 29.2 MEQ/L (22.0-29.0)
[2021-12-28] MEDS ORDERED: LEVALBUTEROL 1.25 MG/0.5 ML CONCENTRATE NEB INH PRN (11:15)
[2021-12-28] MEDS ORDERED: MORPHINE 2 MG/ML 1ML VIAL IV PRN (14:25)
[2021-12-28] MEDS: [UNRECOGNIZED DRUG - REMARK] IV SCH (17:00)
[2021-12-28] MEDS ORDERED: FAT EMULSION IV 250 ML IV ONE (18:00)
[2021-12-28] MEDS: MORPHINE 2 MG/ML 1ML VIAL IV PRN (18:50)
[2021-12-28] MEDS: RAMELTEON 8 MG TAB (ROZEREM) PO PRN (22:12)
[2021-12-29] VITALS (32 sets, daily range): BP systolic 102–136; BP diastolic 56–84
[2021-12-29] MEDS: LEVALBUTEROL 1.25 MG/0.5 ML CONCENTRATE NEB INH SCH ×7 (00:56→23:40)
[2021-12-29] MEDS: VANCOMYCIN HCL 750 MG, VIAL MATE ADAPTER 1 EACH in NS 250 ML IV SCH (01:21)
[2021-12-29] MEDS: HEPARIN SOD (PORCINE) 5000UNITS/ML 1ML VIAL/SYRINGE SQ SCH ×3 (01:21→17:04)
[2021-12-29] MEDS: MORPHINE 2 MG/ML 1ML VIAL IV PRN (01:22)
[2021-12-29] MEDS: MEROPENEM INJ 1 GM in IV 1 EA IV SCH (03:19)
[2021-12-29 04:11] LABS: HEMATOCRIT 30.3 % (42.0-52.0); HEMOGLOBIN 9.4 g/dl (13.5-17.5); MEAN CORPUSCULAR HEMOGLOBIN 25.9 pg (27.0-33.0); MEAN CORPUSCULAR VOLUME 83.5 fl (80.0-96.0); PLATELET COUNT, AUTOMATED 765 10^3/uL (150-450); RED BLOOD COUNT 3.63 10^6/uL (4.30-6.10); WHITE BLOOD COUNT 18.3 10^3/uL (4.0-10.0)
[2021-12-29 04:39] LABS: ALBUMIN 1.2 GM/DL (3.2-5.2); ALT/SGPT 8 U/L (12-78); BILIRUBIN,TOTAL 0.2 MG/DL (0.2-1.0); BLOOD UREA NITROGEN 31 MG/DL (7-18); CALCIUM LEVEL 7.7 MG/DL (8.5-10.1); CARBON DIOXIDE LEVEL 30 MEQ/L (21-32); CHLORIDE LEVEL 104 MEQ/L (98-107); CREATININE FOR GFR 0.52 MG/DL (0.70-1.30); GLOMERULAR FILTRATION RATE > 60.0 (>60); GLUCOSE, FASTING 104 MG/DL (70-100); PHOSPHORUS LEVEL 3.5 MG/DL (2.5-4.9); POTASSIUM SERUM 3.5 MEQ/L (3.5-5.1); SODIUM LEVEL 139 MEQ/L (136-145); TOTAL PROTEIN 5.4 GM/DL (6.4-8.2)
[2021-12-29] MEDS: [UNRECOGNIZED DRUG - REMARK] IV SCH (04:51)
[2021-12-29] MEDS: SODIUM CHLORIDE 0.9% INJ 10 ML SYR IV SCH ×2 (04:52→18:00)
[2021-12-29 05:39] LABS: ABG BASE EXCESS 2.4 (-2.0-2.0); ABG HCO3 25.8 MEQ/L (22.0-26.0); ABG O2 SATURATION 96.4 % (95.0-99.0); ABG PARTIAL PRESSURE CO2 35.3 mmHg (35.0-45.0); ABG PARTIAL PRESSURE O2 83.4 mmHg (75.0-100.0); ABG STANDARD HCO3 26.6 MEQ/L (22.0-26.0); ABG TOTAL CO2 26.8 MEQ/L (22.0-29.0); ABG pH (ARTERIAL) 7.481 UNITS (7.350-7.450)
[2021-12-29] MEDS ORDERED: [UNRECOGNIZED DRUG - REMARK] IV SCH (06:00)
[2021-12-29] MEDS: SYMBICORT 160/4.5MCG INHALER 6GM INH SCH ×2 (07:56→19:18)
[2021-12-29] MEDS: PANTOPRAZOLE 40MG VIAL IV SCH ×2 (10:01→21:12)
[2021-12-29] MEDS: FUROSEMIDE 20MG/2ML VIAL (J1940) IV SCH ×2 (10:02→21:14)
[2021-12-29] MEDS: SENNA 8.6 MG TAB (SENOKOT) PO SCH (10:03)
[2021-12-29] MEDS: KETOROLAC 30 MG/ML 1ML VIAL IV PRN ×3 (10:03→22:42)
[2021-12-29] MEDS: CLOPIDOGREL 75 MG TAB PO SCH (10:03)
[2021-12-29] MEDS: PIPERACILLIN/TAZOBACTAM SOD 4.5 GM in D5W MINI-BAG PLUS 50 ML IV SCH ×2 (10:54→18:06)
[2021-12-29] MEDS ORDERED: KCL 20MEQ IN 100ML SWI (KRUN) 20 MEQ in IV 1 EA IV ONE ×2 (15:50)
[2021-12-29] MEDS ORDERED: FAT EMULSION IV 250 ML IV ONE (18:00)
[2021-12-29] MEDS: [UNRECOGNIZED DRUG - REMARK] IV SCH ×4 (18:07)
[2021-12-29] MEDS: RAMELTEON 8 MG TAB (ROZEREM) PO PRN (23:26)
[2021-12-30] VITALS (22 sets, daily range): BP systolic 96–125; BP diastolic 56–80
[2021-12-30] MEDS: HEPARIN SOD (PORCINE) 5000UNITS/ML 1ML VIAL/SYRINGE SQ SCH ×3 (02:03→17:33)
[2021-12-30] MEDS: PIPERACILLIN/TAZOBACTAM SOD 4.5 GM in D5W MINI-BAG PLUS 50 ML IV SCH ×3 (02:04→18:03)
[2021-12-30] MEDS: LEVALBUTEROL 1.25 MG/0.5 ML CONCENTRATE NEB INH SCH ×6 (03:39→23:33)
[2021-12-30] MEDS: ACETAMINOPHEN 325 MG/10.15 ML UDC GT PRN ×3 (03:51→19:48)
[2021-12-30] MEDS ORDERED: MORPHINE 2 MG/ML 1ML VIAL IV ONE ×2 (04:15→15:45)
[2021-12-30 05:20] LABS: HEMATOCRIT 28.7 % (42.0-52.0); HEMOGLOBIN 8.8 g/dl (13.5-17.5); MEAN CORPUSCULAR HEMOGLOBIN 25.4 pg (27.0-33.0); MEAN CORPUSCULAR HGB CONC 30.7 g/dl (32.0-36.5); MEAN CORPUSCULAR VOLUME 82.9 fl (80.0-96.0); PLATELET COUNT, AUTOMATED 826 10^3/uL (150-450); RED BLOOD COUNT 3.46 10^6/uL (4.30-6.10); WHITE BLOOD COUNT 14.3 10^3/uL (4.0-10.0)
[2021-12-30 05:39] LABS: ALBUMIN 1.2 GM/DL (3.2-5.2); ALT/SGPT 13 U/L (12-78); BILIRUBIN,TOTAL 0.2 MG/DL (0.2-1.0); BLOOD UREA NITROGEN 39 MG/DL (7-18); CALCIUM LEVEL 8.4 MG/DL (8.5-10.1); CARBON DIOXIDE LEVEL 28 MEQ/L (21-32); CHLORIDE LEVEL 103 MEQ/L (98-107); GLOMERULAR FILTRATION RATE > 60.0 (>60); GLUCOSE, FASTING 114 MG/DL (70-100); MAGNESIUM LEVEL 2.2 MG/DL (1.8-2.4); POTASSIUM SERUM 3.7 MEQ/L (3.5-5.1); SODIUM LEVEL 140 MEQ/L (136-145); TOTAL PROTEIN 5.7 GM/DL (6.4-8.2)
[2021-12-30] MEDS: SODIUM CHLORIDE 0.9% INJ 10 ML SYR IV SCH ×2 (05:45→17:33)
[2021-12-30] MEDS: KETOROLAC 30 MG/ML 1ML VIAL IV PRN (06:40)
[2021-12-30] MEDS: [UNRECOGNIZED DRUG - REMARK] IV SCH ×4 (07:27)
[2021-12-30] MEDS ORDERED: KCL 20MEQ IN 100ML SWI (KRUN) 20 MEQ in IV 1 EA IV ONE ×2 (08:00)
[2021-12-30] MEDS: SYMBICORT 160/4.5MCG INHALER 6GM INH SCH ×2 (08:13→19:31)
[2021-12-30] MEDS: SENNA 8.6 MG TAB (SENOKOT) PO SCH (08:37)
[2021-12-30] MEDS: CLOPIDOGREL 75 MG TAB PO SCH (08:37)
[2021-12-30] MEDS: PANTOPRAZOLE 40MG VIAL IV SCH ×2 (08:37→20:31)
[2021-12-30] MEDS: FUROSEMIDE 20MG/2ML VIAL (J1940) IV SCH ×2 (08:38→20:32)
[2021-12-30] MEDS: MORPHINE 2 MG/ML 1ML VIAL IV PRN (12:42)
[2021-12-30] MEDS ORDERED: FAT EMULSION IV 250 ML IV ONE (18:00)
[2021-12-30] MEDS: [UNRECOGNIZED DRUG - REMARK] IV SCH (18:03)
[2021-12-30] MEDS: MORPHINE 4 MG/ML 1ML VIAL/SYRINGE IV PRN (19:48)
[2021-12-31] VITALS (19 sets, daily range): BP systolic 97–121; BP diastolic 57–79
[2021-12-31] MEDS: MORPHINE 4 MG/ML 1ML VIAL/SYRINGE IV PRN (00:16)
[2021-12-31] MEDS: ACETAMINOPHEN 325 MG/10.15 ML UDC GT PRN ×2 (00:16→21:15)
[2021-12-31] MEDS: HEPARIN SOD (PORCINE) 5000UNITS/ML 1ML VIAL/SYRINGE SQ SCH ×3 (00:16→16:18)
[2021-12-31] MEDS: PIPERACILLIN/TAZOBACTAM SOD 4.5 GM in D5W MINI-BAG PLUS 50 ML IV SCH ×3 (03:56→18:13)
[2021-12-31] MEDS: SODIUM CHLORIDE 0.9% INJ 10 ML SYR IV SCH ×2 (03:57→18:21)
[2021-12-31] MEDS: LEVALBUTEROL 1.25 MG/0.5 ML CONCENTRATE NEB INH SCH ×5 (04:06→19:24)
[2021-12-31] MEDS: [UNRECOGNIZED DRUG - REMARK] IV SCH (06:02)
[2021-12-31] MEDS: SYMBICORT 160/4.5MCG INHALER 6GM INH SCH ×2 (07:45→19:24)
[2021-12-31] MEDS: PANTOPRAZOLE 40MG VIAL IV SCH ×2 (08:03→21:15)
[2021-12-31] MEDS: CLOPIDOGREL 75 MG TAB PO SCH (08:03)
[2021-12-31] MEDS: SENNA 8.6 MG TAB (SENOKOT) PO SCH (08:03)
[2021-12-31] MEDS: FUROSEMIDE 20MG/2ML VIAL (J1940) IV SCH ×2 (08:03→21:16)
[2021-12-31 09:46] LABS: HEMATOCRIT 30.5 % (42.0-52.0); HEMOGLOBIN 9.7 g/dl (13.5-17.5); MEAN CORPUSCULAR HEMOGLOBIN 26.1 pg (27.0-33.0); MEAN CORPUSCULAR HGB CONC 31.8 g/dl (32.0-36.5); PLATELET COUNT, AUTOMATED 999 10^3/uL (150-450); RED BLOOD COUNT 3.72 10^6/uL (4.30-6.10); WHITE BLOOD COUNT 11.8 10^3/uL (4.0-10.0)
[2021-12-31] MEDS: GASTROGRAFIN SOLUTION 30ML PO SCH ×2 (10:01→10:29)
[2021-12-31 10:29] LABS: ALBUMIN 1.5 GM/DL (3.2-5.2); ALT/SGPT 24 U/L (12-78); BILIRUBIN,TOTAL 0.2 MG/DL (0.2-1.0); BLOOD UREA NITROGEN 33 MG/DL (7-18); CARBON DIOXIDE LEVEL 26 MEQ/L (21-32); CHLORIDE LEVEL 102 MEQ/L (98-107); CREATININE FOR GFR 0.55 MG/DL (0.70-1.30); GLOMERULAR FILTRATION RATE > 60.0 (>60); GLUCOSE, FASTING 95 MG/DL (70-100); MAGNESIUM LEVEL 1.9 MG/DL (1.8-2.4); PHOSPHORUS LEVEL 3.7 MG/DL (2.5-4.9); POTASSIUM SERUM 4.4 MEQ/L (3.5-5.1); SODIUM LEVEL 136 MEQ/L (136-145); TOTAL PROTEIN 6.5 GM/DL (6.4-8.2)
[2021-12-31] MEDS: KETOROLAC 30 MG/ML 1ML VIAL IV PRN ×2 (11:30→21:16)
[2021-12-31] MEDS ORDERED: ISOVUE-370 76% 100ML VIAL As Ordered ONE (12:07)
[2021-12-31] MEDS: INSULIN LISPRO (NovoLOG) PER UNIT SC SCH ×2 (18:00→23:30)
[2021-12-31] MEDS ORDERED: AMINO AC/ELECTROLYTE/DEX/CALC 2,566 ML IV SCH (18:00)
[2021-12-31] MEDS: HALOPERIDOL 5MG/ML VIAL (J1630 PER 1) IV PRN (18:44)
[2021-12-31] MEDS ORDERED: NS 500 ML IV ONE (20:20)
[2021-12-31 23:04] LABS: HEMATOCRIT 27.4 % (42.0-52.0); HEMOGLOBIN 8.6 g/dl (13.5-17.5); MEAN CORPUSCULAR HEMOGLOBIN 25.6 pg (27.0-33.0); MEAN CORPUSCULAR HGB CONC 31.4 g/dl (32.0-36.5); MEAN CORPUSCULAR VOLUME 81.5 fl (80.0-96.0); PLATELET COUNT, AUTOMATED 918 10^3/uL (150-450); RED BLOOD COUNT 3.36 10^6/uL (4.30-6.10)
[2021-12-31 23:23] LABS: ATYPICAL LYMPH 2 % (0-5); EOSINOPHILS 1 % (0-3); LYMPHOCYTES 18 % (16-44); MONOCYTES 8 % (0-5); NEUTROPHILS 68 % (28-66)
[2021-12-31 23:24] LABS: ANISOCYTOSIS 2+; PLATELET ESTIMATE INCREASED (NORMAL); POIKILOCYTOSIS 1+
[2021-12-31 23:25] LABS: POLYCHROMASIA 1+
[2021-12-31 23:27] LABS: ALBUMIN 1.3 GM/DL (3.2-5.2); ALT/SGPT 24 U/L (12-78); BILIRUBIN,TOTAL 0.2 MG/DL (0.2-1.0); BLOOD UREA NITROGEN 35 MG/DL (7-18); CALCIUM LEVEL 7.9 MG/DL (8.5-10.1); CARBON DIOXIDE LEVEL 25 MEQ/L (21-32); CHLORIDE LEVEL 101 MEQ/L (98-107); CREATININE FOR GFR 0.72 MG/DL (0.70-1.30); GLOMERULAR FILTRATION RATE > 60.0 (>60); GLUCOSE, FASTING 115 MG/DL (70-100); MAGNESIUM LEVEL 1.9 MG/DL (1.8-2.4); POTASSIUM SERUM 3.8 MEQ/L (3.5-5.1); SODIUM LEVEL 136 MEQ/L (136-145); TOTAL PROTEIN 5.8 GM/DL (6.4-8.2)
[2022-01-01] VITALS (25 sets, daily range): BP systolic 93–145; BP diastolic 56–90
[2022-01-01] MEDS: HEPARIN SOD (PORCINE) 5000UNITS/ML 1ML VIAL/SYRINGE SQ SCH ×3 (00:27→17:27)
[2022-01-01] MEDS: KETOROLAC 30 MG/ML 1ML VIAL IV PRN ×2 (01:09→18:27)
[2022-01-01] MEDS: LEVALBUTEROL 1.25 MG/0.5 ML CONCENTRATE NEB INH SCH ×4 (01:14→20:03)
[2022-01-01] MEDS: PIPERACILLIN/TAZOBACTAM SOD 4.5 GM in D5W MINI-BAG PLUS 50 ML IV SCH ×3 (03:38→18:35)
[2022-01-01] MEDS: SODIUM CHLORIDE 0.9% INJ 10 ML SYR IV SCH ×2 (05:49→18:29)
[2022-01-01] MEDS: INSULIN LISPRO (NovoLOG) PER UNIT SC SCH ×2 (06:00→12:00)
[2022-01-01] MEDS: ACETAMINOPHEN 325 MG/10.15 ML UDC GT PRN ×3 (06:08→23:07)
[2022-01-01 06:14] LABS: HEMATOCRIT 26.7 % (42.0-52.0); HEMOGLOBIN 8.6 g/dl (13.5-17.5); MEAN CORPUSCULAR HEMOGLOBIN 26.1 pg (27.0-33.0); MEAN CORPUSCULAR HGB CONC 32.2 g/dl (32.0-36.5); MEAN CORPUSCULAR VOLUME 80.9 fl (80.0-96.0); PLATELET COUNT, AUTOMATED 892 10^3/uL (150-450); WHITE BLOOD COUNT 9.9 10^3/uL (4.0-10.0)
[2022-01-01 06:50] LABS: ALBUMIN 1.3 GM/DL (3.2-5.2); ALT/SGPT 23 U/L (12-78); BILIRUBIN,TOTAL 0.5 MG/DL (0.2-1.0); BLOOD UREA NITROGEN 32 MG/DL (7-18); CALCIUM LEVEL 7.9 MG/DL (8.5-10.1); CARBON DIOXIDE LEVEL 25 MEQ/L (21-32); CHLORIDE LEVEL 101 MEQ/L (98-107); CREATININE FOR GFR 0.69 MG/DL (0.70-1.30); GLOMERULAR FILTRATION RATE > 60.0 (>60); GLUCOSE, FASTING 91 MG/DL (70-100); MAGNESIUM LEVEL 1.9 MG/DL (1.8-2.4); PHOSPHORUS LEVEL 3.3 MG/DL (2.5-4.9); POTASSIUM SERUM 3.5 MEQ/L (3.5-5.1); SODIUM LEVEL 134 MEQ/L (136-145); TOTAL PROTEIN 6.6 GM/DL (6.4-8.2)
[2022-01-01] MEDS: SYMBICORT 160/4.5MCG INHALER 6GM INH SCH ×2 (08:17→20:03)
[2022-01-01] MEDS: SENNA 8.6 MG TAB (SENOKOT) PO SCH (08:21)
[2022-01-01] MEDS: PANTOPRAZOLE 40MG VIAL IV SCH ×2 (08:21→20:20)
[2022-01-01] MEDS: FUROSEMIDE 20MG/2ML VIAL (J1940) IV SCH (08:51)
[2022-01-01] MEDS: CLOPIDOGREL 75 MG TAB PO SCH (09:00)
[2022-01-01] MEDS: KCL 20MEQ IN 100ML SWI (KRUN) 20 MEQ in IV 1 EA IV ONE ×4 (10:14→10:28)
[2022-01-01] MEDS: MORPHINE 4 MG/ML 1ML VIAL/SYRINGE IV PRN (12:19)
[2022-01-01 13:42] LABS: ABG BASE EXCESS 0.8 (-2.0-2.0); ABG HCO3 22.8 MEQ/L (22.0-26.0); ABG O2 SATURATION 94.7 % (95.0-99.0); ABG PARTIAL PRESSURE CO2 27.7 mmHg (35.0-45.0); ABG PARTIAL PRESSURE O2 71.6 mmHg (75.0-100.0); ABG STANDARD HCO3 25.2 MEQ/L (22.0-26.0); ABG TOTAL CO2 23.7 MEQ/L (22.0-29.0); ABG pH (ARTERIAL) 7.534 UNITS (7.350-7.450)
[2022-01-01] MEDS ORDERED: LIDOCAINE 1% MDV 20ML VIAL As Ordered ONE (16:02)
[2022-01-01] MEDS ORDERED: LR 1,000 ML IV ONE (17:25)
[2022-01-02] VITALS (56 sets, daily range): BP systolic 86–170; BP diastolic 47–92
[2022-01-02] MEDS: HEPARIN SOD (PORCINE) 5000UNITS/ML 1ML VIAL/SYRINGE SQ SCH ×3 (00:10→16:28)
[2022-01-02] MEDS: LEVALBUTEROL 1.25 MG/0.5 ML CONCENTRATE NEB INH SCH ×4 (01:41→20:00)
[2022-01-02] MEDS: PIPERACILLIN/TAZOBACTAM SOD 4.5 GM in D5W MINI-BAG PLUS 50 ML IV SCH ×3 (02:24→21:07)
[2022-01-02 04:11] LABS: HEMATOCRIT 24.3 % (42.0-52.0); HEMOGLOBIN 7.6 g/dl (13.5-17.5); MEAN CORPUSCULAR HEMOGLOBIN 25.9 pg (27.0-33.0); MEAN CORPUSCULAR HGB CONC 31.3 g/dl (32.0-36.5); MEAN CORPUSCULAR VOLUME 82.7 fl (80.0-96.0); RED BLOOD COUNT 2.94 10^6/uL (4.30-6.10); WHITE BLOOD COUNT 6.7 10^3/uL (4.0-10.0)
[2022-01-02 04:21] LABS: PLATELET COUNT, AUTOMATED 787 10^3/uL (150-450)
[2022-01-02] MEDS: KETOROLAC 30 MG/ML 1ML VIAL IV PRN ×2 (04:22→13:33)
[2022-01-02 04:41] LABS: ALBUMIN 1.2 GM/DL (3.2-5.2); ALT/SGPT 30 U/L (12-78); BILIRUBIN,TOTAL 0.2 MG/DL (0.2-1.0); BLOOD UREA NITROGEN 24 MG/DL (7-18); CALCIUM LEVEL 7.9 MG/DL (8.5-10.1); CARBON DIOXIDE LEVEL 26 MEQ/L (21-32); CHLORIDE LEVEL 109 MEQ/L (98-107); CREATININE FOR GFR 0.68 MG/DL (0.70-1.30); GLOMERULAR FILTRATION RATE > 60.0 (>60); GLUCOSE, FASTING 87 MG/DL (70-100); PHOSPHORUS LEVEL 4.1 MG/DL (2.5-4.9); POTASSIUM SERUM 4.3 MEQ/L (3.5-5.1); SODIUM LEVEL 140 MEQ/L (136-145); TOTAL PROTEIN 5.6 GM/DL (6.4-8.2)
[2022-01-02] MEDS: SODIUM CHLORIDE 0.9% INJ 10 ML SYR IV SCH ×2 (05:40→17:59)
[2022-01-02] MEDS: MORPHINE 4 MG/ML 1ML VIAL/SYRINGE IV PRN ×2 (06:48→17:59)
[2022-01-02] MEDS: SYMBICORT 160/4.5MCG INHALER 6GM INH SCH ×2 (08:10→20:00)
[2022-01-02] MEDS: CLOPIDOGREL 75 MG TAB PO SCH (09:30)
[2022-01-02] MEDS: PANTOPRAZOLE 40MG VIAL IV SCH ×2 (09:30→21:07)
[2022-01-02] MEDS: SENNA 8.6 MG TAB (SENOKOT) PO SCH (09:30)
[2022-01-02] MEDS: ACETAMINOPHEN 325 MG/10.15 ML UDC GT PRN ×2 (10:25→21:21)
[2022-01-02] MEDS ORDERED: FUROSEMIDE 20MG/2ML VIAL (J1940) IV ONE (11:15)
[2022-01-02] MEDS: MICAFUNGIN SODIUM 100 MG in D5W MINI-BAG PLUS 100 ML IV SCH (18:02)
[2022-01-03] VITALS (35 sets, daily range): BP systolic 96–144; BP diastolic 58–93
[2022-01-03] MEDS: HEPARIN SOD (PORCINE) 5000UNITS/ML 1ML VIAL/SYRINGE SQ SCH ×3 (00:36→17:13)
[2022-01-03] MEDS: LEVALBUTEROL 1.25 MG/0.5 ML CONCENTRATE NEB INH SCH ×4 (01:11→19:41)
[2022-01-03] MEDS: PIPERACILLIN/TAZOBACTAM SOD 4.5 GM in D5W MINI-BAG PLUS 50 ML IV SCH ×3 (03:42→18:50)
[2022-01-03] MEDS: SODIUM CHLORIDE 0.9% INJ 10 ML SYR IV SCH ×2 (05:55→17:12)
[2022-01-03] MEDS: ACETAMINOPHEN 325 MG/10.15 ML UDC GT PRN ×3 (05:55→23:10)
[2022-01-03 06:06] LABS: HEMATOCRIT 28.4 % (42.0-52.0); HEMOGLOBIN 8.8 g/dl (13.5-17.5); MEAN CORPUSCULAR HEMOGLOBIN 26.2 pg (27.0-33.0); MEAN CORPUSCULAR VOLUME 84.5 fl (80.0-96.0); PLATELET COUNT, AUTOMATED 683 10^3/uL (150-450); RED BLOOD COUNT 3.36 10^6/uL (4.30-6.10); WHITE BLOOD COUNT 9.2 10^3/uL (4.0-10.0)
[2022-01-03 06:27] LABS: ALBUMIN 1.3 GM/DL (3.2-5.2); ALT/SGPT 23 U/L (12-78); BILIRUBIN,TOTAL 0.2 MG/DL (0.2-1.0); BLOOD UREA NITROGEN 18 MG/DL (7-18); CALCIUM LEVEL 7.5 MG/DL (8.5-10.1); CARBON DIOXIDE LEVEL 28 MEQ/L (21-32); CHLORIDE LEVEL 107 MEQ/L (98-107); CREATININE FOR GFR 0.65 MG/DL (0.70-1.30); GLOMERULAR FILTRATION RATE > 60.0 (>60); GLUCOSE, FASTING 93 MG/DL (70-100); MAGNESIUM LEVEL 1.9 MG/DL (1.8-2.4); PHOSPHORUS LEVEL 3.4 MG/DL (2.5-4.9); POTASSIUM SERUM 4.5 MEQ/L (3.5-5.1); SODIUM LEVEL 139 MEQ/L (136-145); TOTAL PROTEIN 5.5 GM/DL (6.4-8.2)
[2022-01-03] MEDS ORDERED: FUROSEMIDE 20MG/2ML VIAL (J1940) IV ONE (07:50)
[2022-01-03] MEDS: SYMBICORT 160/4.5MCG INHALER 6GM INH SCH ×2 (07:56→19:41)
[2022-01-03] MEDS: SENNA 8.6 MG TAB (SENOKOT) PO SCH (08:51)
[2022-01-03] MEDS: CLOPIDOGREL 75 MG TAB PO SCH (08:51)
[2022-01-03] MEDS: PANTOPRAZOLE 40MG VIAL IV SCH ×2 (08:56→20:20)
[2022-01-03] MEDS ORDERED: LORazepam 2 MG/ML VIAL IV STA (13:06)
[2022-01-03] MEDS: levETIRAcetam INJection 500 MG in D5W MINI-BAG PLUS 100 ML IV SCH (15:09)
[2022-01-03] MEDS: SUCRALFATE SUSP 1GM/10ML UD PO SCH ×2 (15:10→17:09)
[2022-01-03] MEDS: HALOPERIDOL 5MG/ML VIAL (J1630 PER 1) IV PRN (15:40)
[2022-01-03] MEDS ORDERED: diphenhydrAMINE 50MG/ML VIAL (J1200) IV ONE (15:45)
[2022-01-03] MEDS ORDERED: diphenhydrAMINE 50MG/ML VIAL (J1200) As Ordered ONE (15:49)
[2022-01-03] MEDS: MORPHINE 4 MG/ML 1ML VIAL/SYRINGE IV PRN (16:01)
[2022-01-03] MEDS: MICAFUNGIN SODIUM 100 MG in D5W MINI-BAG PLUS 100 ML IV SCH (17:11)
[2022-01-04] VITALS (33 sets, daily range): BP systolic 90–131; BP diastolic 54–75
[2022-01-04] MEDS: LEVALBUTEROL 1.25 MG/0.5 ML CONCENTRATE NEB INH SCH ×4 (00:03→19:09)
[2022-01-04] MEDS: HEPARIN SOD (PORCINE) 5000UNITS/ML 1ML VIAL/SYRINGE SQ SCH ×3 (00:13→17:50)
[2022-01-04] MEDS: SUCRALFATE SUSP 1GM/10ML UD PO SCH ×5 (00:13→23:01)
[2022-01-04] MEDS: MORPHINE 4 MG/ML 1ML VIAL/SYRINGE IV PRN ×4 (00:42→22:48)
[2022-01-04] MEDS: levETIRAcetam INJection 500 MG in D5W MINI-BAG PLUS 100 ML IV SCH ×2 (01:09→14:33)
[2022-01-04] MEDS: PIPERACILLIN/TAZOBACTAM SOD 4.5 GM in D5W MINI-BAG PLUS 50 ML IV SCH ×3 (04:44→19:00)
[2022-01-04] MEDS: SODIUM CHLORIDE 0.9% INJ 10 ML SYR IV SCH ×2 (05:59→17:51)
[2022-01-04 06:20] LABS: HEMATOCRIT 27.7 % (42.0-52.0); HEMOGLOBIN 8.6 g/dl (13.5-17.5); MEAN CORPUSCULAR HEMOGLOBIN 26.3 pg (27.0-33.0); MEAN CORPUSCULAR VOLUME 84.7 fl (80.0-96.0); PLATELET COUNT, AUTOMATED 619 10^3/uL (150-450); RED BLOOD COUNT 3.27 10^6/uL (4.30-6.10); WHITE BLOOD COUNT 10.7 10^3/uL (4.0-10.0)
[2022-01-04 06:41] LABS: ALBUMIN 1.3 GM/DL (3.2-5.2); ALT/SGPT 20 U/L (12-78); BILIRUBIN,TOTAL 0.2 MG/DL (0.2-1.0); BLOOD UREA NITROGEN 12 MG/DL (7-18); CALCIUM LEVEL 8.2 MG/DL (8.5-10.1); CARBON DIOXIDE LEVEL 26 MEQ/L (21-32); CHLORIDE LEVEL 106 MEQ/L (98-107); CREATININE FOR GFR 0.68 MG/DL (0.70-1.30); GLOMERULAR FILTRATION RATE > 60.0 (>60); GLUCOSE, FASTING 69 MG/DL (70-100); PHOSPHORUS LEVEL 4.1 MG/DL (2.5-4.9); SODIUM LEVEL 140 MEQ/L (136-145)
[2022-01-04 07:12] LABS: LYMPHOCYTES 15 % (16-44); MONOCYTES 2 % (0-5); NEUTROPHILS 78 % (28-66)
[2022-01-04 07:13] LABS: ANISOCYTOSIS 1+; PLATELET ESTIMATE INCREASED (NORMAL)
[2022-01-04] MEDS: SYMBICORT 160/4.5MCG INHALER 6GM INH SCH ×2 (08:13→19:09)
[2022-01-04] MEDS: PANTOPRAZOLE 40MG VIAL IV SCH ×2 (08:31→20:39)
[2022-01-04] MEDS: CLOPIDOGREL 75 MG TAB PO SCH (08:34)
[2022-01-04] MEDS: SENNA 8.6 MG TAB (SENOKOT) PO SCH (08:34)
[2022-01-04] MEDS: MICAFUNGIN SODIUM 100 MG in D5W MINI-BAG PLUS 100 ML IV SCH (17:51)
[2022-01-04] MEDS ORDERED: ISOVUE-370 76% 100ML VIAL As Ordered ONE (19:46)
[2022-01-04] MEDS ORDERED: ACYCLOVIR 1,000 MG in D5W 250 ML IV SCH (20:00)
[2022-01-04] MEDS: SODIUM CHLORIDE 0.9% INJ 10 ML SYR IV PRN (22:49)
[2022-01-04] MEDS: RAMELTEON 8 MG TAB (ROZEREM) PO PRN (23:00)
[2022-01-04] MEDS: ACETAMINOPHEN 325 MG/10.15 ML UDC GT PRN (23:00)
[2022-01-05] VITALS (25 sets, daily range): BP systolic 90–149; BP diastolic 52–87; O2SAT 96
[2022-01-05] MEDS: HEPARIN SOD (PORCINE) 5000UNITS/ML 1ML VIAL/SYRINGE SQ SCH ×3 (01:37→18:50)
[2022-01-05] MEDS: levETIRAcetam INJection 500 MG in D5W MINI-BAG PLUS 100 ML IV SCH (01:37)
[2022-01-05] MEDS: LEVALBUTEROL 1.25 MG/0.5 ML CONCENTRATE NEB INH SCH ×4 (01:42→19:31)
[2022-01-05] MEDS: HALOPERIDOL 5MG/ML VIAL (J1630 PER 1) IV PRN (02:03)
[2022-01-05] MEDS: PIPERACILLIN/TAZOBACTAM SOD 4.5 GM in D5W MINI-BAG PLUS 50 ML IV SCH ×3 (02:30→18:46)
[2022-01-05] MEDS: MORPHINE 4 MG/ML 1ML VIAL/SYRINGE IV PRN ×2 (02:56→17:21)
[2022-01-05] MEDS: SUCRALFATE SUSP 1GM/10ML UD PO SCH ×4 (06:19→23:06)
[2022-01-05] MEDS: SODIUM CHLORIDE 0.9% INJ 10 ML SYR IV SCH ×2 (06:19→18:48)
[2022-01-05 08:03] LABS: HEMATOCRIT 34.9 % (42.0-52.0); HEMOGLOBIN 10.3 g/dl (13.5-17.5); MEAN CORPUSCULAR HEMOGLOBIN 26.1 pg (27.0-33.0); MEAN CORPUSCULAR HGB CONC 29.5 g/dl (32.0-36.5); MEAN CORPUSCULAR VOLUME 88.4 fl (80.0-96.0); PLATELET COUNT, AUTOMATED 577 10^3/uL (150-450); RED BLOOD COUNT 3.95 10^6/uL (4.30-6.10); WHITE BLOOD COUNT 8.8 10^3/uL (4.0-10.0)
[2022-01-05 08:34] LABS: ALBUMIN 1.4 GM/DL (3.2-5.2); ALT/SGPT 21 U/L (12-78); BILIRUBIN,TOTAL 0.2 MG/DL (0.2-1.0); BLOOD UREA NITROGEN 9 MG/DL (7-18); CALCIUM LEVEL 8.3 MG/DL (8.5-10.1); CARBON DIOXIDE LEVEL 23 MEQ/L (21-32); CHLORIDE LEVEL 106 MEQ/L (98-107); CREATININE FOR GFR 0.88 MG/DL (0.70-1.30); GLOMERULAR FILTRATION RATE > 60.0 (>60); GLUCOSE, FASTING 88 MG/DL (70-100); PHOSPHORUS LEVEL 4.4 MG/DL (2.5-4.9); POTASSIUM SERUM 4.6 MEQ/L (3.5-5.1); SODIUM LEVEL 138 MEQ/L (136-145); TOTAL PROTEIN 6.1 GM/DL (6.4-8.2)
[2022-01-05] MEDS: SYMBICORT 160/4.5MCG INHALER 6GM INH SCH ×2 (08:35→19:31)
[2022-01-05] MEDS: levETIRAcetam 250MG TABLET (KEPPRA) PO SCH ×2 (09:14→20:50)
[2022-01-05] MEDS: SENNA 8.6 MG TAB (SENOKOT) PO SCH (09:14)
[2022-01-05] MEDS: CLOPIDOGREL 75 MG TAB PO SCH (09:14)
[2022-01-05] MEDS: PANTOPRAZOLE 40MG VIAL IV SCH ×2 (09:15→20:50)
[2022-01-05] MEDS: MICAFUNGIN SODIUM 100 MG in D5W MINI-BAG PLUS 100 ML IV SCH (18:46)
[2022-01-05] MEDS: ACETAMINOPHEN 325 MG/10.15 ML UDC GT PRN (18:48)
[2022-01-06] VITALS (18 sets, daily range): BP systolic 109–149; BP diastolic 68–90
[2022-01-06] MEDS: HEPARIN SOD (PORCINE) 5000UNITS/ML 1ML VIAL/SYRINGE SQ SCH ×3 (00:07→18:37)
[2022-01-06] MEDS: LEVALBUTEROL 1.25 MG/0.5 ML CONCENTRATE NEB INH SCH ×4 (00:53→21:06)
[2022-01-06] MEDS: PIPERACILLIN/TAZOBACTAM SOD 4.5 GM in D5W MINI-BAG PLUS 50 ML IV SCH ×3 (02:53→21:00)
[2022-01-06] MEDS: RAMELTEON 8 MG TAB (ROZEREM) PO PRN (02:53)
[2022-01-06] MEDS: ACETAMINOPHEN 325 MG/10.15 ML UDC GT PRN (02:53)
[2022-01-06] MEDS: SODIUM CHLORIDE 0.9% INJ 10 ML SYR IV SCH ×2 (05:07→18:50)
[2022-01-06] MEDS: SUCRALFATE SUSP 1GM/10ML UD PO SCH ×2 (05:07→11:26)
[2022-01-06 05:13] LABS: HEMATOCRIT 27.8 % (42.0-52.0); HEMOGLOBIN 8.7 g/dl (13.5-17.5); MEAN CORPUSCULAR HEMOGLOBIN 26.4 pg (27.0-33.0); MEAN CORPUSCULAR HGB CONC 31.3 g/dl (32.0-36.5); MEAN CORPUSCULAR VOLUME 84.5 fl (80.0-96.0); PLATELET COUNT, AUTOMATED 506 10^3/uL (150-450); RED BLOOD COUNT 3.29 10^6/uL (4.30-6.10)
[2022-01-06 06:05] LABS: ALBUMIN 1.2 GM/DL (3.2-5.2); ALT/SGPT 15 U/L (12-78); BILIRUBIN,TOTAL 0.2 MG/DL (0.2-1.0); BLOOD UREA NITROGEN 7 MG/DL (7-18); CALCIUM LEVEL 8.1 MG/DL (8.5-10.1); CARBON DIOXIDE LEVEL 25 MEQ/L (21-32); CHLORIDE LEVEL 106 MEQ/L (98-107); CREATININE FOR GFR 0.83 MG/DL (0.70-1.30); GLOMERULAR FILTRATION RATE > 60.0 (>60); GLUCOSE, FASTING 75 MG/DL (70-100); MAGNESIUM LEVEL 1.8 MG/DL (1.8-2.4); PHOSPHORUS LEVEL 3.5 MG/DL (2.5-4.9); POTASSIUM SERUM 3.9 MEQ/L (3.5-5.1); SODIUM LEVEL 138 MEQ/L (136-145); TOTAL PROTEIN 5.7 GM/DL (6.4-8.2)
[2022-01-06] MEDS: SYMBICORT 160/4.5MCG INHALER 6GM INH SCH ×2 (07:51→21:06)
[2022-01-06] MEDS: PANTOPRAZOLE 40MG VIAL IV SCH (09:13)
[2022-01-06] MEDS: CLOPIDOGREL 75 MG TAB PO SCH (09:14)
[2022-01-06] MEDS: levETIRAcetam 250MG TABLET (KEPPRA) PO SCH ×2 (09:14→21:00)
[2022-01-06] MEDS: SENNA 8.6 MG TAB (SENOKOT) PO SCH (09:14)
[2022-01-06] MEDS: MORPHINE 4 MG/ML 1ML VIAL/SYRINGE IV PRN (09:27)
[2022-01-06] MEDS: oxyCODONE 5MG TAB PO PRN ×2 (14:13→21:57)
[2022-01-06] MEDS: MICAFUNGIN SODIUM 100 MG in D5W MINI-BAG PLUS 100 ML IV SCH (18:50)
[2022-01-07] MEDS: ACETAMINOPHEN 325 MG/10.15 ML UDC PO PRN (00:34)
[2022-01-07 00:35] VITALS: BP 121/79
[2022-01-07] MEDS: HEPARIN SOD (PORCINE) 5000UNITS/ML 1ML VIAL/SYRINGE SQ SCH ×3 (00:35→17:09)
[2022-01-07] MEDS: RAMELTEON 8 MG TAB (ROZEREM) PO PRN ×2 (01:02→21:30)
[2022-01-07] MEDS: LEVALBUTEROL 1.25 MG/0.5 ML CONCENTRATE NEB INH SCH ×4 (01:41→20:00)
[2022-01-07] MEDS: PIPERACILLIN/TAZOBACTAM SOD 4.5 GM in D5W MINI-BAG PLUS 50 ML IV SCH ×3 (03:27→18:29)
[2022-01-07 03:45] VITALS: BP 120/67
[2022-01-07] MEDS: oxyCODONE 5MG TAB PO PRN ×3 (04:07→23:32)
[2022-01-07] MEDS ORDERED: ISOVUE-370 76% 100ML VIAL As Ordered ONE (05:44)
[2022-01-07] MEDS: GASTROGRAFIN SOLUTION 30ML PO SCH ×2 (05:54→06:20)
[2022-01-07] MEDS: SODIUM CHLORIDE 0.9% INJ 10 ML SYR IV SCH ×2 (05:55→18:30)
[2022-01-07] MEDS: SYMBICORT 160/4.5MCG INHALER 6GM INH SCH ×2 (07:37→20:32)
[2022-01-07 08:32] VITALS: BP 138/72
[2022-01-07] MEDS ORDERED: PANTOPRAZOLE 40MG VIAL IV SCH (09:00)
[2022-01-07] MEDS: SODIUM CHLORIDE 0.9% INJ 10 ML SYR IV PRN ×3 (10:22→20:26)
[2022-01-07] MEDS: levETIRAcetam 250MG TABLET (KEPPRA) PO SCH ×2 (10:22→20:26)
[2022-01-07] MEDS: SENNA 8.6 MG TAB (SENOKOT) PO SCH (10:23)
[2022-01-07] MEDS: CLOPIDOGREL 75 MG TAB PO SCH (10:23)
[2022-01-07 11:59] VITALS: BP 131/81
[2022-01-07 16:22] VITALS: BP 132/82
[2022-01-07] MEDS: MICAFUNGIN SODIUM 100 MG in D5W MINI-BAG PLUS 100 ML IV SCH (17:09)
[2022-01-07 20:00] VITALS: BP 127/86
[2022-01-08] VITALS: BP 119/79
[2022-01-08] MEDS: LEVALBUTEROL 1.25 MG/0.5 ML CONCENTRATE NEB INH SCH ×4 (01:21→18:21)
[2022-01-08] MEDS: HEPARIN SOD (PORCINE) 5000UNITS/ML 1ML VIAL/SYRINGE SQ SCH ×3 (02:11→17:46)
[2022-01-08] MEDS: PIPERACILLIN/TAZOBACTAM SOD 4.5 GM in D5W MINI-BAG PLUS 50 ML IV SCH ×3 (02:11→19:40)
[2022-01-08 04:00] VITALS: BP 110/81
[2022-01-08] MEDS: SODIUM CHLORIDE 0.9% INJ 10 ML SYR IV SCH ×2 (05:38→17:46)
[2022-01-08 07:42] VITALS: BP 117/80
[2022-01-08] MEDS: SYMBICORT 160/4.5MCG INHALER 6GM INH SCH ×2 (08:19→18:20)
[2022-01-08 08:25] LABS: BASO # 0.1 10^3/uL (0.0-0.2); BASO % 0.6 % (0.0-1.0); EOS # 0.1 10^3/uL (0.0-0.5); HEMATOCRIT 32.8 % (42.0-52.0); HEMOGLOBIN 10.3 g/dl (13.5-17.5); LYMPH # 1.8 10^3/uL (1.5-5.0); LYMPH % 17.7 % (24.0-44.0); MEAN CORPUSCULAR HEMOGLOBIN 26.3 pg (27.0-33.0); MEAN CORPUSCULAR HGB CONC 31.4 g/dl (32.0-36.5); MEAN CORPUSCULAR VOLUME 83.9 fl (80.0-96.0); MONO # 0.7 10^3/uL (0.0-0.8); MONO % 7.2 % (2.0-8.0); NEUTROPHILS % 69.6 % (36.0-66.0); PLATELET COUNT, AUTOMATED 530 10^3/uL (150-450); RED BLOOD COUNT 3.91 10^6/uL (4.30-6.10)
[2022-01-08 09:14] LABS: ALBUMIN 1.5 GM/DL (3.2-5.2); ALT/SGPT 15 U/L (12-78); BILIRUBIN,TOTAL 0.2 MG/DL (0.2-1.0); BLOOD UREA NITROGEN 6 MG/DL (7-18); CALCIUM LEVEL 8.6 MG/DL (8.5-10.1); CARBON DIOXIDE LEVEL 22 MEQ/L (21-32); CHLORIDE LEVEL 107 MEQ/L (98-107); CREATININE FOR GFR 0.78 MG/DL (0.70-1.30); GLOMERULAR FILTRATION RATE > 60.0 (>60); GLUCOSE, FASTING 87 MG/DL (70-100); SODIUM LEVEL 138 MEQ/L (136-145); TOTAL PROTEIN 6.7 GM/DL (6.4-8.2)
[2022-01-08] MEDS: levETIRAcetam 250MG TABLET (KEPPRA) PO SCH ×2 (09:22→21:04)
[2022-01-08] MEDS: SENNA 8.6 MG TAB (SENOKOT) PO SCH (09:22)
[2022-01-08] MEDS: CLOPIDOGREL 75 MG TAB PO SCH (09:22)
[2022-01-08] MEDS: PANTOPRAZOLE 40MG TAB (PROTONIX) PO SCH (09:22)
[2022-01-08] MEDS: oxyCODONE 5MG TAB PO PRN ×2 (11:39→17:45)
[2022-01-08 12:00] VITALS: BP 116/76
[2022-01-08 16:00] VITALS: BP 112/83
[2022-01-08] MEDS: MICAFUNGIN SODIUM 100 MG in D5W MINI-BAG PLUS 100 ML IV SCH (17:46)
[2022-01-08 20:00] VITALS: BP 108/76
[2022-01-08] MEDS: SODIUM CHLORIDE 0.9% INJ 10 ML SYR IV PRN (21:04)
[2022-01-08] MEDS: RAMELTEON 8 MG TAB (ROZEREM) PO PRN (21:04)
[2022-01-09] VITALS: BP 130/94
[2022-01-09] MEDS: HEPARIN SOD (PORCINE) 5000UNITS/ML 1ML VIAL/SYRINGE SQ SCH ×3 (00:08→17:00)
[2022-01-09] MEDS: oxyCODONE 5MG TAB PO PRN ×3 (00:08→16:56)
[2022-01-09] MEDS: LEVALBUTEROL 1.25 MG/0.5 ML CONCENTRATE NEB INH SCH ×4 (01:26→20:00)
[2022-01-09] MEDS: PIPERACILLIN/TAZOBACTAM SOD 4.5 GM in D5W MINI-BAG PLUS 50 ML IV SCH ×3 (02:00→21:36)
[2022-01-09 04:00] VITALS: BP 138/90
[2022-01-09] MEDS: SODIUM CHLORIDE 0.9% INJ 10 ML SYR IV SCH ×2 (06:27→18:19)
[2022-01-09] MEDS: SYMBICORT 160/4.5MCG INHALER 6GM INH SCH ×2 (07:36→20:52)
[2022-01-09 08:00] VITALS: BP 121/86
[2022-01-09 08:09] LABS: BASO # 0.1 10^3/uL (0.0-0.2); BASO % 0.6 % (0.0-1.0); EOS # 0.1 10^3/uL (0.0-0.5); EOS % 0.8 % (0.0-3.0); HEMATOCRIT 32.5 % (42.0-52.0); HEMOGLOBIN 9.7 g/dl (13.5-17.5); LYMPH # 1.8 10^3/uL (1.5-5.0); LYMPH % 16.8 % (24.0-44.0); MEAN CORPUSCULAR HEMOGLOBIN 24.8 pg (27.0-33.0); MEAN CORPUSCULAR HGB CONC 29.8 g/dl (32.0-36.5); MEAN CORPUSCULAR VOLUME 83.1 fl (80.0-96.0); MONO # 0.8 10^3/uL (0.0-0.8); MONO % 7.2 % (2.0-8.0); NEUTROPHILS # 7.5 10^3/uL (1.5-8.5); NEUTROPHILS % 71.8 % (36.0-66.0); PLATELET COUNT, AUTOMATED 526 10^3/uL (150-450); RED BLOOD COUNT 3.91 10^6/uL (4.30-6.10); WHITE BLOOD COUNT 10.5 10^3/uL (4.0-10.0)
[2022-01-09] MEDS: SENNA 8.6 MG TAB (SENOKOT) PO SCH (08:28)
[2022-01-09] MEDS: CLOPIDOGREL 75 MG TAB PO SCH (08:28)
[2022-01-09] MEDS: levETIRAcetam 250MG TABLET (KEPPRA) PO SCH ×2 (08:29→21:36)
[2022-01-09] MEDS: PANTOPRAZOLE 40MG TAB (PROTONIX) PO SCH (08:29)
[2022-01-09 08:37] LABS: ALBUMIN 1.5 GM/DL (3.2-5.2); ALT/SGPT 15 U/L (12-78); BILIRUBIN,TOTAL 0.2 MG/DL (0.2-1.0); BLOOD UREA NITROGEN 4 MG/DL (7-18); CALCIUM LEVEL 8.7 MG/DL (8.5-10.1); CARBON DIOXIDE LEVEL 24 MEQ/L (21-32); CHLORIDE LEVEL 108 MEQ/L (98-107); CREATININE FOR GFR 0.74 MG/DL (0.70-1.30); GLOMERULAR FILTRATION RATE > 60.0 (>60); GLUCOSE, FASTING 79 MG/DL (70-100); MAGNESIUM LEVEL 1.7 MG/DL (1.8-2.4); POTASSIUM SERUM 4.1 MEQ/L (3.5-5.1); SODIUM LEVEL 139 MEQ/L (136-145); TOTAL PROTEIN 6.5 GM/DL (6.4-8.2)
[2022-01-09] MEDS ORDERED: METOPROLOL SUCC (TopROL XL) 50MG **XL** TAB PO SCH (09:00)
[2022-01-09 12:00] VITALS: BP 119/82
[2022-01-09] MEDS: POTASSIUM CHLORIDE 10MEQ SR TABLET PO SCH (13:17)
[2022-01-09] MEDS: ATORVASTATIN 20 MG TAB PO SCH (13:17)
[2022-01-09] MEDS: FLUoxetine 20MG CAP PO SCH (13:18)
[2022-01-09] MEDS: FERROUS SULFATE 325MG TAB PO SCH (13:18)
[2022-01-09] MEDS: DULoxetine 30MG CAPSULE (CYMBALTA) PO SCH ×2 (13:18→21:36)
[2022-01-09] MEDS: MAGNESIUM OXIDE 400MG TAB (MAG-OX) PO SCH (13:19)
[2022-01-09] MEDS: atenoloL 50 MG TAB PO SCH (13:20)
[2022-01-09] MEDS: amLODIPine 5 MG TAB PO SCH (13:20)
[2022-01-09 15:24] VITALS: BP 112/75
[2022-01-09] MEDS: GABAPENTIN 300 MG CAP PO SCH ×2 (16:56→21:36)
[2022-01-09 20:00] VITALS: BP 117/78
[2022-01-10] MEDS: HEPARIN SOD (PORCINE) 5000UNITS/ML 1ML VIAL/SYRINGE SQ SCH ×4 (01:00→16:18)
[2022-01-10] MEDS: LEVALBUTEROL 1.25 MG/0.5 ML CONCENTRATE NEB INH SCH ×4 (02:38→20:00)
[2022-01-10] MEDS: PIPERACILLIN/TAZOBACTAM SOD 4.5 GM in D5W MINI-BAG PLUS 50 ML IV SCH ×3 (03:51→17:48)
[2022-01-10 04:00] VITALS: BP 107/72
[2022-01-10] MEDS: SODIUM CHLORIDE 0.9% INJ 10 ML SYR IV SCH ×2 (05:08→17:49)
[2022-01-10 06:08] LABS: BASO # 0.1 10^3/uL (0.0-0.2); BASO % 0.6 % (0.0-1.0); EOS # 0.2 10^3/uL (0.0-0.5); EOS % 1.6 % (0.0-3.0); HEMATOCRIT 30.9 % (42.0-52.0); HEMOGLOBIN 9.6 g/dl (13.5-17.5); LYMPH # 1.9 10^3/uL (1.5-5.0); LYMPH % 17.8 % (24.0-44.0); MEAN CORPUSCULAR HEMOGLOBIN 26.2 pg (27.0-33.0); MEAN CORPUSCULAR HGB CONC 31.1 g/dl (32.0-36.5); MEAN CORPUSCULAR VOLUME 84.4 fl (80.0-96.0); MONO % 9.3 % (2.0-8.0); NEUTROPHILS # 7.4 10^3/uL (1.5-8.5); NEUTROPHILS % 68.1 % (36.0-66.0); PLATELET COUNT, AUTOMATED 516 10^3/uL (150-450); RED BLOOD COUNT 3.66 10^6/uL (4.30-6.10); WHITE BLOOD COUNT 10.9 10^3/uL (4.0-10.0)
[2022-01-10 07:12] LABS: ALBUMIN 1.5 GM/DL (3.2-5.2); ALT/SGPT 14 U/L (12-78); BILIRUBIN,TOTAL 0.3 MG/DL (0.2-1.0); BLOOD UREA NITROGEN 5 MG/DL (7-18); CALCIUM LEVEL 7.9 MG/DL (8.5-10.1); CARBON DIOXIDE LEVEL 21 MEQ/L (21-32); CHLORIDE LEVEL 106 MEQ/L (98-107); CREATININE FOR GFR 0.77 MG/DL (0.70-1.30); GLOMERULAR FILTRATION RATE > 60.0 (>60); GLUCOSE, FASTING 70 MG/DL (70-100); MAGNESIUM LEVEL 1.4 MG/DL (1.8-2.4); POTASSIUM SERUM 4.4 MEQ/L (3.5-5.1); SODIUM LEVEL 133 MEQ/L (136-145); TOTAL PROTEIN 6.2 GM/DL (6.4-8.2)
[2022-01-10] MEDS: SYMBICORT 160/4.5MCG INHALER 6GM INH SCH ×2 (07:17→20:51)
[2022-01-10 07:49] VITALS: BP 100/69
[2022-01-10] MEDS: MAG SULF 1GM/100ML (MAG RUN) 1 GM in IV 1 EA IV SCH ×3 (08:55→11:42)
[2022-01-10] MEDS: ATORVASTATIN 20 MG TAB PO SCH (08:56)
[2022-01-10] MEDS: SENNA 8.6 MG TAB (SENOKOT) PO SCH (08:56)
[2022-01-10] MEDS: GABAPENTIN 300 MG CAP PO SCH ×3 (08:56→20:08)
[2022-01-10] MEDS: PANTOPRAZOLE 40MG TAB (PROTONIX) PO SCH (08:56)
[2022-01-10] MEDS: POTASSIUM CHLORIDE 10MEQ SR TABLET PO SCH (08:57)
[2022-01-10] MEDS: DULoxetine 30MG CAPSULE (CYMBALTA) PO SCH ×2 (08:57→20:08)
[2022-01-10] MEDS: levETIRAcetam 250MG TABLET (KEPPRA) PO SCH ×2 (08:57→20:08)
[2022-01-10] MEDS: FLUoxetine 20MG CAP PO SCH (08:57)
[2022-01-10] MEDS: CLOPIDOGREL 75 MG TAB PO SCH (08:58)
[2022-01-10] MEDS: FERROUS SULFATE 325MG TAB PO SCH (08:58)
[2022-01-10] MEDS: MAGNESIUM OXIDE 400MG TAB (MAG-OX) PO SCH (08:58)
[2022-01-10] MEDS: atenoloL 50 MG TAB PO SCH (09:00)
[2022-01-10] MEDS: amLODIPine 5 MG TAB PO SCH (09:00)
[2022-01-10 16:00] VITALS: BP 105/65
[2022-01-10 20:00] VITALS: BP 104/71
[2022-01-10 23:06] VITALS: BP 103/71
[2022-01-11] VITALS (9 sets, daily range): BP systolic 90–112; BP diastolic 58–75
[2022-01-11] MEDS: HEPARIN SOD (PORCINE) 5000UNITS/ML 1ML VIAL/SYRINGE SQ SCH ×2 (01:00→08:15)
[2022-01-11] MEDS: PIPERACILLIN/TAZOBACTAM SOD 4.5 GM in D5W MINI-BAG PLUS 50 ML IV SCH ×3 (02:41→19:44)
[2022-01-11] MEDS: SODIUM CHLORIDE 0.9% INJ 10 ML SYR IV PRN ×2 (02:42→05:36)
[2022-01-11] MEDS: LEVALBUTEROL 1.25 MG/0.5 ML CONCENTRATE NEB INH SCH (03:34)
[2022-01-11] MEDS: SODIUM CHLORIDE 0.9% INJ 10 ML SYR IV SCH ×2 (05:36→18:00)
[2022-01-11] MEDS: oxyCODONE 5MG TAB PO PRN ×3 (05:37→20:41)
[2022-01-11 06:19] LABS: BASO % 0.3 % (0.0-1.0); EOS # 0.2 10^3/uL (0.0-0.5); EOS % 1.2 % (0.0-3.0); HEMATOCRIT 34.9 % (42.0-52.0); HEMOGLOBIN 10.7 g/dl (13.5-17.5); LYMPH # 1.9 10^3/uL (1.5-5.0); LYMPH % 13.4 % (24.0-44.0); MEAN CORPUSCULAR HEMOGLOBIN 25.4 pg (27.0-33.0); MEAN CORPUSCULAR HGB CONC 30.7 g/dl (32.0-36.5); MEAN CORPUSCULAR VOLUME 82.9 fl (80.0-96.0); MONO # 1.1 10^3/uL (0.0-0.8); MONO % 7.9 % (2.0-8.0); NEUTROPHILS # 10.6 10^3/uL (1.5-8.5); NEUTROPHILS % 75.1 % (36.0-66.0); PLATELET COUNT, AUTOMATED 487 10^3/uL (150-450); RED BLOOD COUNT 4.21 10^6/uL (4.30-6.10); WHITE BLOOD COUNT 14.1 10^3/uL (4.0-10.0)
[2022-01-11 06:53] LABS: ALBUMIN 1.4 GM/DL (3.2-5.2); ALT/SGPT 12 U/L (12-78); BILIRUBIN,TOTAL 0.2 MG/DL (0.2-1.0); BLOOD UREA NITROGEN 6 MG/DL (7-18); CALCIUM LEVEL 8.5 MG/DL (8.5-10.1); CARBON DIOXIDE LEVEL 20 MEQ/L (21-32); CHLORIDE LEVEL 107 MEQ/L (98-107); CREATININE FOR GFR 0.92 MG/DL (0.70-1.30); GLOMERULAR FILTRATION RATE > 60.0 (>60); GLUCOSE, FASTING 96 MG/DL (70-100); POTASSIUM SERUM 4.2 MEQ/L (3.5-5.1); SODIUM LEVEL 134 MEQ/L (136-145); TOTAL PROTEIN 7.2 GM/DL (6.4-8.2)
[2022-01-11 07:08] LABS: HSV-1 DNA Negative (Negative); HSV-2 DNA Negative (Negative)
[2022-01-11] MEDS: SYMBICORT 160/4.5MCG INHALER 6GM INH SCH ×2 (07:47→20:26)
[2022-01-11] MEDS: LEVALBUTEROL HFA 45MCG/ACT 15 GM INHALER INH SCH ×3 (07:48→20:00)
[2022-01-11] MEDS: SENNA 8.6 MG TAB (SENOKOT) PO SCH (08:12)
[2022-01-11] MEDS: PANTOPRAZOLE 40MG TAB (PROTONIX) PO SCH (08:12)
[2022-01-11] MEDS: GABAPENTIN 300 MG CAP PO SCH ×3 (08:12→20:39)
[2022-01-11] MEDS: POTASSIUM CHLORIDE 10MEQ SR TABLET PO SCH (08:13)
[2022-01-11] MEDS: MAGNESIUM OXIDE 400MG TAB (MAG-OX) PO SCH (08:13)
[2022-01-11] MEDS: FERROUS SULFATE 325MG TAB PO SCH (08:13)
[2022-01-11] MEDS: ATORVASTATIN 20 MG TAB PO SCH (08:14)
[2022-01-11] MEDS: FLUoxetine 20MG CAP PO SCH (08:14)
[2022-01-11] MEDS: CLOPIDOGREL 75 MG TAB PO SCH (08:14)
[2022-01-11] MEDS: levETIRAcetam 250MG TABLET (KEPPRA) PO SCH ×2 (08:14→20:39)
[2022-01-11] MEDS: DULoxetine 30MG CAPSULE (CYMBALTA) PO SCH ×2 (08:14→20:39)
[2022-01-11] MEDS: amLODIPine 5 MG TAB PO SCH (08:17)
[2022-01-11] MEDS: atenoloL 50 MG TAB PO SCH (08:17)
[2022-01-11] MEDS ORDERED: NS 500 ML IV ONE (08:35)
[2022-01-11] MEDS ORDERED: NS 1,000 ML IV SCH (08:35)
[2022-01-11] MEDS ORDERED: ISOVUE-370 76% 100ML VIAL As Ordered ONE (10:51)
[2022-01-11] MEDS: MICAFUNGIN SODIUM 100 MG in D5W MINI-BAG PLUS 100 ML IV SCH (12:39)
[2022-01-11] MEDS ORDERED: NS 1,000 ML IV ONE (14:55)
[2022-01-11] MEDS: NS 1,000 ML IV SCH (16:28)
[2022-01-11] MEDS: RAMELTEON 8 MG TAB (ROZEREM) PO PRN (20:40)
[2022-01-12] VITALS (8 sets, daily range): BP systolic 92–111; BP diastolic 60–98
[2022-01-12] MEDS: NS 1,000 ML IV SCH ×3 (02:11→12:28)
[2022-01-12] MEDS: SODIUM CHLORIDE 0.9% INJ 10 ML SYR IV SCH ×2 (06:56→17:54)
[2022-01-12] MEDS: ACETAMINOPHEN 325 MG/10.15 ML UDC PO PRN (07:00)
[2022-01-12] MEDS ORDERED: carisoprodoL 350 MG TAB PO ONE (07:00)
[2022-01-12] MEDS: LEVALBUTEROL HFA 45MCG/ACT 15 GM INHALER INH SCH ×4 (07:55→19:59)
[2022-01-12 07:57] LABS: BASO % 0.3 % (0.0-1.0); EOS # 0.3 10^3/uL (0.0-0.5); EOS % 1.8 % (0.0-3.0); LYMPH # 1.7 10^3/uL (1.5-5.0); LYMPH % 12.2 % (24.0-44.0); MEAN CORPUSCULAR HGB CONC 30.3 g/dl (32.0-36.5); MEAN CORPUSCULAR VOLUME 85.9 fl (80.0-96.0); MONO % 7.6 % (2.0-8.0); NEUTROPHILS # 10.3 10^3/uL (1.5-8.5); PLATELET COUNT, AUTOMATED 393 10^3/uL (150-450); RED BLOOD COUNT 3.84 10^6/uL (4.30-6.10); WHITE BLOOD COUNT 13.6 10^3/uL (4.0-10.0)
[2022-01-12] MEDS: SYMBICORT 160/4.5MCG INHALER 6GM INH SCH ×2 (07:58→19:59)
[2022-01-12 08:13] LABS: ALT/SGPT 16 U/L (12-78); BILIRUBIN,TOTAL 0.1 MG/DL (0.2-1.0); BLOOD UREA NITROGEN 7 MG/DL (7-18); CALCIUM LEVEL 8.2 MG/DL (8.5-10.1); CARBON DIOXIDE LEVEL 16 MEQ/L (21-32); CHLORIDE LEVEL 111 MEQ/L (98-107); CREATININE FOR GFR 0.67 MG/DL (0.70-1.30); GLOMERULAR FILTRATION RATE > 60.0 (>60); GLUCOSE, FASTING 85 MG/DL (70-100); POTASSIUM SERUM 4.6 MEQ/L (3.5-5.1); SODIUM LEVEL 137 MEQ/L (136-145); TOTAL PROTEIN 6.2 GM/DL (6.4-8.2)
[2022-01-12 08:14] LABS: ALBUMIN 1.4 GM/DL (3.2-5.2); MAGNESIUM LEVEL 1.7 MG/DL (1.8-2.4)
[2022-01-12] MEDS ORDERED: MAG SULF 1GM/100ML (MAG RUN) 1 GM in IV 1 EA IV ONE (08:40)
[2022-01-12] MEDS ORDERED: COSYNTROPIN 0.25 MG/ML VIAL (J0834 PER 0.25MG) IV ONE (09:00)
[2022-01-12] MEDS: POTASSIUM CHLORIDE 10MEQ SR TABLET PO SCH (09:00)
[2022-01-12] MEDS: DULoxetine 30MG CAPSULE (CYMBALTA) PO SCH ×2 (09:22→20:47)
[2022-01-12] MEDS: levETIRAcetam 250MG TABLET (KEPPRA) PO SCH ×2 (09:22→20:47)
[2022-01-12] MEDS: FLUoxetine 20MG CAP PO SCH (09:23)
[2022-01-12] MEDS: ATORVASTATIN 20 MG TAB PO SCH (09:23)
[2022-01-12] MEDS: CLOPIDOGREL 75 MG TAB PO SCH (09:23)
[2022-01-12] MEDS: PANTOPRAZOLE 40MG TAB (PROTONIX) PO SCH (09:23)
[2022-01-12] MEDS: FERROUS SULFATE 325MG TAB PO SCH (09:23)
[2022-01-12] MEDS: GABAPENTIN 300 MG CAP PO SCH ×3 (09:24→20:47)
[2022-01-12] MEDS: MAGNESIUM OXIDE 400MG TAB (MAG-OX) PO SCH (09:24)
[2022-01-12] MEDS: MICAFUNGIN SODIUM 100 MG in D5W MINI-BAG PLUS 100 ML IV SCH (12:27)
[2022-01-12] MEDS: oxyCODONE 5MG TAB PO PRN (14:26)
[2022-01-12] MEDS ORDERED: ISOVUE-370 76% 100ML VIAL As Ordered ONE (14:52)
[2022-01-12] MEDS ORDERED: carisoprodoL 350 MG TAB PO PRN (15:05)
[2022-01-12] MEDS: RAMELTEON 8 MG TAB (ROZEREM) PO PRN (22:16)
[2022-01-13] VITALS (7 sets, daily range): BP systolic 89–118; BP diastolic 60–86
[2022-01-13] MEDS: NS 1,000 ML IV SCH ×2 (00:01→08:43)
[2022-01-13] MEDS: LEVALBUTEROL HFA 45MCG/ACT 15 GM INHALER INH SCH ×4 (01:43→19:34)
[2022-01-13] MEDS: carisoprodoL 350 MG TAB PO PRN ×3 (03:15→21:56)
[2022-01-13] MEDS: SODIUM CHLORIDE 0.9% INJ 10 ML SYR IV SCH ×2 (04:24→17:05)
[2022-01-13] MEDS: SYMBICORT 160/4.5MCG INHALER 6GM INH SCH ×2 (07:30→19:34)
[2022-01-13 07:38] LABS: BASO % 0.3 % (0.0-1.0); EOS # 0.2 10^3/uL (0.0-0.5); EOS % 1.6 % (0.0-3.0); HEMATOCRIT 35.8 % (42.0-52.0); HEMOGLOBIN 10.8 g/dl (13.5-17.5); LYMPH # 1.7 10^3/uL (1.5-5.0); LYMPH % 11.7 % (24.0-44.0); MEAN CORPUSCULAR HEMOGLOBIN 25.9 pg (27.0-33.0); MEAN CORPUSCULAR HGB CONC 30.2 g/dl (32.0-36.5); MEAN CORPUSCULAR VOLUME 85.9 fl (80.0-96.0); MONO # 0.8 10^3/uL (0.0-0.8); MONO % 5.5 % (2.0-8.0); NEUTROPHILS # 11.1 10^3/uL (1.5-8.5); NEUTROPHILS % 79.3 % (36.0-66.0); RED BLOOD COUNT 4.17 10^6/uL (4.30-6.10); WHITE BLOOD COUNT 14.1 10^3/uL (4.0-10.0)
[2022-01-13 07:58] LABS: ALBUMIN 1.6 GM/DL (3.2-5.2); ALT/SGPT 15 U/L (12-78); BILIRUBIN,TOTAL 0.2 MG/DL (0.2-1.0); BLOOD UREA NITROGEN 4 MG/DL (7-18); CALCIUM LEVEL 9.1 MG/DL (8.5-10.1); CARBON DIOXIDE LEVEL 20 MEQ/L (21-32); CHLORIDE LEVEL 110 MEQ/L (98-107); GLOMERULAR FILTRATION RATE > 60.0 (>60); GLUCOSE, FASTING 72 MG/DL (70-100); MAGNESIUM LEVEL 1.8 MG/DL (1.8-2.4); SODIUM LEVEL 137 MEQ/L (136-145); TOTAL PROTEIN 8.5 GM/DL (6.4-8.2)
[2022-01-13] MEDS: MAGNESIUM OXIDE 400MG TAB (MAG-OX) PO SCH (08:33)
[2022-01-13] MEDS: FERROUS SULFATE 325MG TAB PO SCH (08:33)
[2022-01-13] MEDS: CLOPIDOGREL 75 MG TAB PO SCH (08:34)
[2022-01-13] MEDS: FLUoxetine 20MG CAP PO SCH (08:34)
[2022-01-13] MEDS: DULoxetine 30MG CAPSULE (CYMBALTA) PO SCH ×2 (08:34→21:56)
[2022-01-13] MEDS: GABAPENTIN 300 MG CAP PO SCH ×3 (08:34→21:56)
[2022-01-13] MEDS: PANTOPRAZOLE 40MG TAB (PROTONIX) PO SCH (08:34)
[2022-01-13] MEDS: levETIRAcetam 250MG TABLET (KEPPRA) PO SCH ×2 (08:35→21:56)
[2022-01-13] MEDS: ATORVASTATIN 20 MG TAB PO SCH (08:35)
[2022-01-13 11:10] LABS: PLTBLUE- EDTA FREE CALC 418 K/mm3 (172-450); PLTBLUE- EDTA FREE MACHINE 380 10^3/uL (172-450)
[2022-01-13 13:10] LABS: CREATININE,RANDOM URINE 83.6 MG/DL; POTASSIUM RANDOM URINE 37.9 MEQ/L
[2022-01-13] MEDS ORDERED: MORPHINE 4 MG/ML 1ML VIAL/SYRINGE IV ONE (16:15)
[2022-01-13] MEDS ORDERED: MORPHINE 2 MG/ML 1ML VIAL IV ONE (23:00)
[2022-01-13] MEDS ORDERED: SIMETHICONE 80MG CHEW TAB PO ONE (23:00)
[2022-01-13] MEDS: SODIUM CHLORIDE 0.9% INJ 10 ML SYR IV PRN (23:06)
[2022-01-14] MEDS: LEVALBUTEROL HFA 45MCG/ACT 15 GM INHALER INH SCH ×4 (01:34→20:00)
[2022-01-14 02:00] VITALS: BP 114/83
[2022-01-14 05:44] VITALS: BP 112/80
[2022-01-14] MEDS: SODIUM CHLORIDE 0.9% INJ 10 ML SYR IV SCH ×2 (05:45→16:34)
[2022-01-14 06:35] LABS: BASO % 0.3 % (0.0-1.0); EOS # 0.2 10^3/uL (0.0-0.5); EOS % 1.6 % (0.0-3.0); HEMATOCRIT 30.1 % (42.0-52.0); HEMOGLOBIN 9.2 g/dl (13.5-17.5); LYMPH # 1.3 10^3/uL (1.5-5.0); LYMPH % 9.4 % (24.0-44.0); MEAN CORPUSCULAR HEMOGLOBIN 25.8 pg (27.0-33.0); MEAN CORPUSCULAR HGB CONC 30.6 g/dl (32.0-36.5); MEAN CORPUSCULAR VOLUME 84.3 fl (80.0-96.0); MONO % 6.9 % (2.0-8.0); NEUTROPHILS # 11.4 10^3/uL (1.5-8.5); NEUTROPHILS % 80.8 % (36.0-66.0); PLATELET COUNT, AUTOMATED 528 10^3/uL (150-450); RED BLOOD COUNT 3.57 10^6/uL (4.30-6.10); WHITE BLOOD COUNT 14.1 10^3/uL (4.0-10.0)
[2022-01-14 07:13] LABS: ALBUMIN 1.5 GM/DL (3.2-5.2); ALT/SGPT 16 U/L (12-78); BILIRUBIN,TOTAL 0.2 MG/DL (0.2-1.0); BLOOD UREA NITROGEN 3 MG/DL (7-18); C REACTIVE PROTEIN QUANTITATIV 8.94 MG/DL (0.00-0.30); CALCIUM LEVEL 8.6 MG/DL (8.5-10.1); CARBON DIOXIDE LEVEL 22 MEQ/L (21-32); CHLORIDE LEVEL 109 MEQ/L (98-107); CREATININE FOR GFR 0.71 MG/DL (0.70-1.30); GLOMERULAR FILTRATION RATE > 60.0 (>60); GLUCOSE, FASTING 75 MG/DL (70-100); MAGNESIUM LEVEL 1.7 MG/DL (1.8-2.4); POTASSIUM SERUM 3.9 MEQ/L (3.5-5.1); SODIUM LEVEL 138 MEQ/L (136-145); TOTAL PROTEIN 6.5 GM/DL (6.4-8.2)
[2022-01-14] MEDS: SYMBICORT 160/4.5MCG INHALER 6GM INH SCH ×2 (07:14→20:00)
[2022-01-14] MEDS ORDERED: MAG SULF 1GM/100ML (MAG RUN) 1 GM in IV 1 EA IV ONE (07:25)
[2022-01-14] MEDS ORDERED: MORPHINE 2 MG/ML 1ML VIAL IV PRN ×2 (07:25→11:25)
[2022-01-14] MEDS: CLOPIDOGREL 75 MG TAB PO SCH (09:07)
[2022-01-14] MEDS: GABAPENTIN 300 MG CAP PO SCH ×3 (09:07→20:09)
[2022-01-14] MEDS: PANTOPRAZOLE 40MG TAB (PROTONIX) PO SCH (09:07)
[2022-01-14] MEDS: FERROUS SULFATE 325MG TAB PO SCH (09:07)
[2022-01-14] MEDS: DULoxetine 30MG CAPSULE (CYMBALTA) PO SCH ×2 (09:07→20:10)
[2022-01-14] MEDS: ATORVASTATIN 20 MG TAB PO SCH (09:08)
[2022-01-14] MEDS: levETIRAcetam 250MG TABLET (KEPPRA) PO SCH ×2 (09:08→20:10)
[2022-01-14] MEDS: FLUoxetine 20MG CAP PO SCH (09:08)
[2022-01-14] MEDS: MAGNESIUM OXIDE 400MG TAB (MAG-OX) PO SCH (09:11)
[2022-01-14] MEDS: MORPHINE 2 MG/ML 1ML VIAL IV PRN ×4 (09:11→22:48)
[2022-01-14] MEDS: SODIUM CHLORIDE 0.9% INJ 10 ML SYR IV PRN ×2 (11:03→11:49)
[2022-01-14] MEDS: KETOROLAC 30 MG/ML 1ML VIAL IV PRN ×2 (11:48→20:01)
[2022-01-14 12:00] VITALS: BP 95/59
[2022-01-14 14:00] VITALS: BP 116/71
[2022-01-14] MEDS: D5W/0.45% SODIUM CHLORIDE 1,000 ML IV SCH (16:32)
[2022-01-14] MEDS ORDERED: REMDESIVIR 200 MG in NS 250 ML IV ONE (18:00)
[2022-01-14] MEDS ORDERED: SODIUM CHLORIDE 0.9% INJ 10 ML SYR IV ONE (19:00)
[2022-01-14 19:36] VITALS: BP 113/71
[2022-01-15] MEDS: LEVALBUTEROL HFA 45MCG/ACT 15 GM INHALER INH SCH ×4 (02:00→19:55)
[2022-01-15] MEDS: MORPHINE 2 MG/ML 1ML VIAL IV PRN ×5 (02:52→20:12)
[2022-01-15 04:00] VITALS: BP 111/74
[2022-01-15] MEDS: SODIUM CHLORIDE 0.9% INJ 10 ML SYR IV SCH ×3 (05:14→17:23)
[2022-01-15 06:22] LABS: BASO % 0.2 % (0.0-1.0); EOS # 0.2 10^3/uL (0.0-0.5); EOS % 1.7 % (0.0-3.0); HEMATOCRIT 29.5 % (42.0-52.0); HEMOGLOBIN 9.2 g/dl (13.5-17.5); LYMPH # 1.3 10^3/uL (1.5-5.0); LYMPH % 10.1 % (24.0-44.0); MEAN CORPUSCULAR HEMOGLOBIN 26.5 pg (27.0-33.0); MEAN CORPUSCULAR HGB CONC 31.2 g/dl (32.0-36.5); MONO # 0.9 10^3/uL (0.0-0.8); MONO % 6.8 % (2.0-8.0); NEUTROPHILS # 10.3 10^3/uL (1.5-8.5); NEUTROPHILS % 80.3 % (36.0-66.0); PLATELET COUNT, AUTOMATED 511 10^3/uL (150-450); RED BLOOD COUNT 3.47 10^6/uL (4.30-6.10); WHITE BLOOD COUNT 12.8 10^3/uL (4.0-10.0)
[2022-01-15 06:44] LABS: ALBUMIN 1.4 GM/DL (3.2-5.2); ALT/SGPT 12 U/L (12-78); BILIRUBIN,TOTAL 0.1 MG/DL (0.2-1.0); BLOOD UREA NITROGEN 3 MG/DL (7-18); CALCIUM LEVEL 8.7 MG/DL (8.5-10.1); CARBON DIOXIDE LEVEL 21 MEQ/L (21-32); CHLORIDE LEVEL 108 MEQ/L (98-107); CREATININE FOR GFR 0.66 MG/DL (0.70-1.30); GLOMERULAR FILTRATION RATE > 60.0 (>60); GLUCOSE, FASTING 77 MG/DL (70-100); MAGNESIUM LEVEL 1.8 MG/DL (1.8-2.4); POTASSIUM SERUM 3.6 MEQ/L (3.5-5.1); SODIUM LEVEL 137 MEQ/L (136-145); TOTAL PROTEIN 6.9 GM/DL (6.4-8.2)
[2022-01-15] MEDS ORDERED: LORazepam 2 MG/ML VIAL IV PRN (07:45)
[2022-01-15] MEDS: SYMBICORT 160/4.5MCG INHALER 6GM INH SCH ×2 (08:05→19:55)
[2022-01-15] MEDS: ATORVASTATIN 20 MG TAB PO SCH (08:20)
[2022-01-15] MEDS: CLOPIDOGREL 75 MG TAB PO SCH (08:20)
[2022-01-15] MEDS: D5W/0.45% SODIUM CHLORIDE 1,000 ML IV SCH ×3 (08:20→21:25)
[2022-01-15] MEDS: GABAPENTIN 300 MG CAP PO SCH ×3 (08:20→20:14)
[2022-01-15] MEDS: PANTOPRAZOLE 40MG TAB (PROTONIX) PO SCH (08:21)
[2022-01-15] MEDS: FLUoxetine 20MG CAP PO SCH (08:21)
[2022-01-15] MEDS: MAGNESIUM OXIDE 400MG TAB (MAG-OX) PO SCH (08:21)
[2022-01-15] MEDS: FERROUS SULFATE 325MG TAB PO SCH (08:21)
[2022-01-15] MEDS: levETIRAcetam 250MG TABLET (KEPPRA) PO SCH ×2 (08:21→20:14)
[2022-01-15] MEDS: DULoxetine 30MG CAPSULE (CYMBALTA) PO SCH ×2 (08:21→20:14)
[2022-01-15] MEDS ORDERED: ISOVUE-370 76% 100ML VIAL As Ordered ONE (10:59)
[2022-01-15 12:00] VITALS: BP 116/72
[2022-01-15] MEDS: KETOROLAC 30 MG/ML 1ML VIAL IV PRN ×2 (13:17→19:31)
[2022-01-15] MEDS: REMDESIVIR 100 MG in NS 250 ML IV SCH (17:23)
[2022-01-15 19:42] VITALS: BP 110/75
[2022-01-15] MEDS: SODIUM CHLORIDE 0.9% INJ 10 ML SYR IV PRN (20:12)
[2022-01-16] VITALS: BP 113/80
[2022-01-16] MEDS: MORPHINE 2 MG/ML 1ML VIAL IV PRN ×5 (00:22→21:47)
[2022-01-16] MEDS: LEVALBUTEROL HFA 45MCG/ACT 15 GM INHALER INH SCH ×4 (01:20→20:00)
[2022-01-16 04:00] VITALS: BP 110/73
[2022-01-16] MEDS: SODIUM CHLORIDE 0.9% INJ 10 ML SYR IV SCH ×3 (05:22→17:35)
[2022-01-16 06:08] LABS: BASO % 0.2 % (0.0-1.0); EOS # 0.2 10^3/uL (0.0-0.5); EOS % 1.6 % (0.0-3.0); HEMATOCRIT 28.9 % (42.0-52.0); HEMOGLOBIN 8.8 g/dl (13.5-17.5); LYMPH % 8.1 % (24.0-44.0); MEAN CORPUSCULAR HEMOGLOBIN 25.5 pg (27.0-33.0); MEAN CORPUSCULAR HGB CONC 30.4 g/dl (32.0-36.5); MEAN CORPUSCULAR VOLUME 83.8 fl (80.0-96.0); MONO % 7.8 % (2.0-8.0); NEUTROPHILS % 81.7 % (36.0-66.0); PLATELET COUNT, AUTOMATED 484 10^3/uL (150-450); RED BLOOD COUNT 3.45 10^6/uL (4.30-6.10); WHITE BLOOD COUNT 12.2 10^3/uL (4.0-10.0)
[2022-01-16 06:35] LABS: ALBUMIN 1.3 GM/DL (3.2-5.2); ALT/SGPT 12 U/L (12-78); BILIRUBIN,TOTAL 0.1 MG/DL (0.2-1.0); BLOOD UREA NITROGEN 2 MG/DL (7-18); CALCIUM LEVEL 8.1 MG/DL (8.5-10.1); CARBON DIOXIDE LEVEL 21 MEQ/L (21-32); CHLORIDE LEVEL 107 MEQ/L (98-107); CREATININE FOR GFR 0.68 MG/DL (0.70-1.30); GLOMERULAR FILTRATION RATE > 60.0 (>60); GLUCOSE, FASTING 99 MG/DL (70-100); MAGNESIUM LEVEL 1.5 MG/DL (1.8-2.4); POTASSIUM SERUM 3.2 MEQ/L (3.5-5.1); SODIUM LEVEL 135 MEQ/L (136-145); TOTAL PROTEIN 6.6 GM/DL (6.4-8.2)
[2022-01-16] MEDS ORDERED: MAG SULF 1GM/100ML (MAG RUN) 1 GM in IV 1 EA IV ONE (07:05)
[2022-01-16] MEDS ORDERED: KCL 10MEQ/100ML SWI (KRUN) 10 MEQ in IV 1 EA IV ONE ×2 (07:05→08:05)
[2022-01-16] MEDS: SYMBICORT 160/4.5MCG INHALER 6GM INH SCH ×2 (07:56→20:15)
[2022-01-16] MEDS: ATORVASTATIN 20 MG TAB PO SCH (08:30)
[2022-01-16] MEDS: GABAPENTIN 300 MG CAP PO SCH ×3 (08:31→21:38)
[2022-01-16] MEDS: DULoxetine 30MG CAPSULE (CYMBALTA) PO SCH ×2 (08:31→21:38)
[2022-01-16] MEDS: FLUoxetine 20MG CAP PO SCH (08:31)
[2022-01-16] MEDS: CLOPIDOGREL 75 MG TAB PO SCH (08:31)
[2022-01-16] MEDS: PANTOPRAZOLE 40MG TAB (PROTONIX) PO SCH ×2 (08:31→21:38)
[2022-01-16] MEDS: levETIRAcetam 250MG TABLET (KEPPRA) PO SCH ×2 (08:31→21:38)
[2022-01-16] MEDS: FERROUS SULFATE 325MG TAB PO SCH (08:31)
[2022-01-16] MEDS: MAGNESIUM OXIDE 400MG TAB (MAG-OX) PO SCH (08:31)
[2022-01-16] MEDS: KETOROLAC 30 MG/ML 1ML VIAL IV PRN ×2 (09:32→17:33)
[2022-01-16] MEDS: SODIUM CHLORIDE 0.9% INJ 10 ML SYR IV PRN (09:32)
[2022-01-16 12:15] VITALS: BP 98/61
[2022-01-16 12:28] VITALS: BP 107/72
[2022-01-16] MEDS ORDERED: ISOVUE-300 61% 50ML VIAL As Ordered ONE (16:32)
[2022-01-16] MEDS ORDERED: LIDOCAINE 1% MDV 20ML VIAL As Ordered ONE (16:32)
[2022-01-16] MEDS: REMDESIVIR 100 MG in NS 250 ML IV SCH (17:33)
[2022-01-16] MEDS: D5W/0.45% SODIUM CHLORIDE 1,000 ML IV SCH (17:34)
[2022-01-16 17:40] VITALS: BP 127/84
[2022-01-16 20:00] VITALS: BP 109/75
[2022-01-17] MEDS: D5W/0.45% SODIUM CHLORIDE 1,000 ML IV SCH ×2 (00:41→13:53)
[2022-01-17] MEDS: KETOROLAC 30 MG/ML 1ML VIAL IV PRN ×3 (00:45→20:46)
[2022-01-17 01:00] VITALS: BP 105/66
[2022-01-17] MEDS: LEVALBUTEROL HFA 45MCG/ACT 15 GM INHALER INH SCH ×4 (01:14→20:00)
[2022-01-17] MEDS: MORPHINE 2 MG/ML 1ML VIAL IV PRN ×4 (03:10→18:22)
[2022-01-17 04:00] VITALS: BP 108/70
[2022-01-17] MEDS: SODIUM CHLORIDE 0.9% INJ 10 ML SYR IV SCH ×2 (05:44→18:28)
[2022-01-17 06:16] LABS: BASO % 0.2 % (0.0-1.0); EOS # 0.2 10^3/uL (0.0-0.5); EOS % 1.8 % (0.0-3.0); HEMATOCRIT 29.9 % (42.0-52.0); HEMOGLOBIN 8.9 g/dl (13.5-17.5); LYMPH # 1.3 10^3/uL (1.5-5.0); LYMPH % 9.9 % (24.0-44.0); MEAN CORPUSCULAR HEMOGLOBIN 25.6 pg (27.0-33.0); MEAN CORPUSCULAR HGB CONC 29.8 g/dl (32.0-36.5); MEAN CORPUSCULAR VOLUME 85.9 fl (80.0-96.0); MONO # 0.9 10^3/uL (0.0-0.8); MONO % 6.8 % (2.0-8.0); NEUTROPHILS # 10.2 10^3/uL (1.5-8.5); NEUTROPHILS % 80.5 % (36.0-66.0); PLATELET COUNT, AUTOMATED 416 10^3/uL (150-450); RED BLOOD COUNT 3.48 10^6/uL (4.30-6.10); WHITE BLOOD COUNT 12.7 10^3/uL (4.0-10.0)
[2022-01-17 06:46] LABS: BLOOD UREA NITROGEN 3 MG/DL (7-18); CALCIUM LEVEL 8.5 MG/DL (8.5-10.1); CARBON DIOXIDE LEVEL 22 MEQ/L (21-32); CHLORIDE LEVEL 108 MEQ/L (98-107); CREATININE FOR GFR 0.74 MG/DL (0.70-1.30); GLOMERULAR FILTRATION RATE > 60.0 (>60); GLUCOSE, FASTING 81 MG/DL (70-100); MAGNESIUM LEVEL 1.8 MG/DL (1.8-2.4); POTASSIUM SERUM 3.5 MEQ/L (3.5-5.1); SODIUM LEVEL 136 MEQ/L (136-145)
[2022-01-17 07:56] VITALS: BP 121/77
[2022-01-17] MEDS: GABAPENTIN 300 MG CAP PO SCH ×3 (08:43→19:48)
[2022-01-17] MEDS: ATORVASTATIN 20 MG TAB PO SCH (08:43)
[2022-01-17] MEDS: levETIRAcetam 250MG TABLET (KEPPRA) PO SCH ×2 (08:43→19:47)
[2022-01-17] MEDS: DULoxetine 30MG CAPSULE (CYMBALTA) PO SCH ×2 (08:44→19:47)
[2022-01-17] MEDS: PANTOPRAZOLE 40MG TAB (PROTONIX) PO SCH ×2 (08:44→19:48)
[2022-01-17] MEDS: POTASSIUM CHLORIDE 10MEQ SR TABLET PO SCH (08:44)
[2022-01-17] MEDS: FLUoxetine 20MG CAP PO SCH (08:44)
[2022-01-17] MEDS: FERROUS SULFATE 325MG TAB PO SCH (08:44)
[2022-01-17] MEDS: CLOPIDOGREL 75 MG TAB PO SCH (08:44)
[2022-01-17] MEDS: MAGNESIUM OXIDE 400MG TAB (MAG-OX) PO SCH (08:45)
[2022-01-17] MEDS: SYMBICORT 160/4.5MCG INHALER 6GM INH SCH ×2 (09:11→20:00)
[2022-01-17 12:00] VITALS: BP 107/67
[2022-01-17 16:00] VITALS: BP 103/67
[2022-01-17 20:00] VITALS: BP 108/74
[2022-01-17] MEDS: RAMELTEON 8 MG TAB (ROZEREM) PO PRN (20:46)
[2022-01-18] VITALS: BP 102/64
[2022-01-18] MEDS: LEVALBUTEROL HFA 45MCG/ACT 15 GM INHALER INH SCH ×3 (02:00→14:00)
[2022-01-18] MEDS: MORPHINE 2 MG/ML 1ML VIAL IV PRN ×4 (03:57→19:57)
[2022-01-18 04:00] VITALS: BP 105/68
[2022-01-18] MEDS: D5W/0.45% SODIUM CHLORIDE 1,000 ML IV SCH (04:06)
[2022-01-18] MEDS: SODIUM CHLORIDE 0.9% INJ 10 ML SYR IV SCH ×2 (06:42→19:56)
[2022-01-18] MEDS: SYMBICORT 160/4.5MCG INHALER 6GM INH SCH ×2 (08:52→20:06)
[2022-01-18] MEDS: MAGNESIUM OXIDE 400MG TAB (MAG-OX) PO SCH (09:47)
[2022-01-18] MEDS: FERROUS SULFATE 325MG TAB PO SCH (09:47)
[2022-01-18] MEDS: FLUoxetine 20MG CAP PO SCH (09:47)
[2022-01-18] MEDS: DULoxetine 30MG CAPSULE (CYMBALTA) PO SCH ×2 (09:48→21:55)
[2022-01-18] MEDS: CLOPIDOGREL 75 MG TAB PO SCH (09:48)
[2022-01-18] MEDS: ATORVASTATIN 20 MG TAB PO SCH (09:48)
[2022-01-18] MEDS: levETIRAcetam 250MG TABLET (KEPPRA) PO SCH ×2 (09:48→21:55)
[2022-01-18] MEDS: PANTOPRAZOLE 40MG TAB (PROTONIX) PO SCH ×2 (09:48→21:55)
[2022-01-18] MEDS: POTASSIUM CHLORIDE 10MEQ SR TABLET PO SCH (09:48)
[2022-01-18] MEDS: GABAPENTIN 300 MG CAP PO SCH ×3 (09:48→21:55)
[2022-01-18 10:59] LABS: HEMATOCRIT 29.7 % (42.0-52.0); HEMOGLOBIN 9.1 g/dl (13.5-17.5); MEAN CORPUSCULAR HEMOGLOBIN 25.4 pg (27.0-33.0); MEAN CORPUSCULAR HGB CONC 30.6 g/dl (32.0-36.5); PLATELET COUNT, AUTOMATED 480 10^3/uL (150-450); RED BLOOD COUNT 3.58 10^6/uL (4.30-6.10); WHITE BLOOD COUNT 12.2 10^3/uL (4.0-10.0)
[2022-01-18 12:00] VITALS: BP 114/67
[2022-01-18] MEDS: SODIUM CHLORIDE 0.9% INJ 10 ML SYR IV PRN ×2 (14:35→21:56)
[2022-01-18 20:12] VITALS: BP 105/70
[2022-01-18] MEDS: KETOROLAC 30 MG/ML 1ML VIAL IV PRN (21:55)
[2022-01-18] MEDS: RAMELTEON 8 MG TAB (ROZEREM) PO PRN (21:55)
[2022-01-19] VITALS (7 sets, daily range): BP systolic 97–108; BP diastolic 63–78
[2022-01-19] MEDS: MORPHINE 2 MG/ML 1ML VIAL IV PRN ×4 (00:15→13:11)
[2022-01-19] MEDS: SODIUM CHLORIDE 0.9% INJ 10 ML SYR IV PRN ×3 (04:34→13:11)
[2022-01-19] MEDS: SODIUM CHLORIDE 0.9% INJ 10 ML SYR IV SCH ×2 (04:34→17:20)
[2022-01-19 06:44] LABS: HEMATOCRIT 27.3 % (42.0-52.0); HEMOGLOBIN 8.5 g/dl (13.5-17.5); MEAN CORPUSCULAR HEMOGLOBIN 25.7 pg (27.0-33.0); MEAN CORPUSCULAR HGB CONC 31.1 g/dl (32.0-36.5); MEAN CORPUSCULAR VOLUME 82.5 fl (80.0-96.0); PLATELET COUNT, AUTOMATED 455 10^3/uL (150-450); RED BLOOD COUNT 3.31 10^6/uL (4.30-6.10); WHITE BLOOD COUNT 11.5 10^3/uL (4.0-10.0)
[2022-01-19 07:12] LABS: ALBUMIN 1.3 GM/DL (3.2-5.2); ALT/SGPT 9 U/L (12-78); BILIRUBIN,TOTAL 0.7 MG/DL (0.2-1.0); BLOOD UREA NITROGEN 4 MG/DL (7-18); CARBON DIOXIDE LEVEL 23 MEQ/L (21-32); CHLORIDE LEVEL 105 MEQ/L (98-107); CREATININE FOR GFR 0.69 MG/DL (0.70-1.30); GLOMERULAR FILTRATION RATE > 60.0 (>60); GLUCOSE, FASTING 83 MG/DL (70-100); POTASSIUM SERUM 3.7 MEQ/L (3.5-5.1); SODIUM LEVEL 135 MEQ/L (136-145); TOTAL PROTEIN 6.3 GM/DL (6.4-8.2)
[2022-01-19] MEDS: SYMBICORT 160/4.5MCG INHALER 6GM INH SCH ×2 (08:19→19:29)
[2022-01-19] MEDS: GABAPENTIN 300 MG CAP PO SCH ×3 (08:36→20:04)
[2022-01-19] MEDS: DULoxetine 30MG CAPSULE (CYMBALTA) PO SCH ×2 (08:36→20:04)
[2022-01-19] MEDS: PANTOPRAZOLE 40MG TAB (PROTONIX) PO SCH ×2 (08:36→20:04)
[2022-01-19] MEDS: FERROUS SULFATE 325MG TAB PO SCH (08:36)
[2022-01-19] MEDS: POTASSIUM CHLORIDE 10MEQ SR TABLET PO SCH (08:36)
[2022-01-19] MEDS: ATORVASTATIN 20 MG TAB PO SCH (08:36)
[2022-01-19] MEDS: levETIRAcetam 250MG TABLET (KEPPRA) PO SCH ×2 (08:36→20:04)
[2022-01-19] MEDS: FLUoxetine 20MG CAP PO SCH (08:41)
[2022-01-19] MEDS: MAGNESIUM OXIDE 400MG TAB (MAG-OX) PO SCH (08:41)
[2022-01-19] MEDS: CLOPIDOGREL 75 MG TAB PO SCH (08:41)
[2022-01-19] MEDS: AMOXICILLIN 500 MG CAP PO SCH ×2 (15:00→22:18)
[2022-01-19] MEDS ORDERED: IBUPROFEN 600MG TAB PO PRN (15:25)
[2022-01-19] MEDS: NORCO, ANEXSIA 5/325MG TABLET (HYDROcodone/ACETAMINOPHEN) PO PRN (15:46)
[2022-01-19] MEDS: MORPHINE 4 MG/ML 1ML VIAL/SYRINGE IV PRN ×2 (17:20→22:27)
[2022-01-19] MEDS ORDERED: MORPHINE 4 MG/ML 1ML VIAL/SYRINGE IV ONE (20:15)
[2022-01-20] MEDS: MORPHINE 4 MG/ML 1ML VIAL/SYRINGE IV PRN ×4 (03:56→22:11)
[2022-01-20 03:58] VITALS: BP 108/65
[2022-01-20] MEDS: SODIUM CHLORIDE 0.9% INJ 10 ML SYR IV SCH ×2 (04:52→17:11)
[2022-01-20] MEDS: AMOXICILLIN 500 MG CAP PO SCH ×3 (05:51→22:12)
[2022-01-20 08:00] VITALS: BP 103/65
[2022-01-20] MEDS: SYMBICORT 160/4.5MCG INHALER 6GM INH SCH ×2 (08:12→19:37)
[2022-01-20] MEDS: PANTOPRAZOLE 40MG TAB (PROTONIX) PO SCH ×2 (08:28→22:12)
[2022-01-20] MEDS: ATORVASTATIN 20 MG TAB PO SCH (08:28)
[2022-01-20] MEDS: FLUoxetine 20MG CAP PO SCH (08:28)
[2022-01-20] MEDS: GABAPENTIN 300 MG CAP PO SCH ×3 (08:28→22:13)
[2022-01-20] MEDS: FERROUS SULFATE 325MG TAB PO SCH (08:28)
[2022-01-20] MEDS: CLOPIDOGREL 75 MG TAB PO SCH (08:28)
[2022-01-20] MEDS: POTASSIUM CHLORIDE 10MEQ SR TABLET PO SCH (08:28)
[2022-01-20] MEDS: DULoxetine 30MG CAPSULE (CYMBALTA) PO SCH ×2 (08:28→22:11)
[2022-01-20] MEDS: levETIRAcetam 250MG TABLET (KEPPRA) PO SCH ×2 (08:28→22:14)
[2022-01-20] MEDS: MAGNESIUM OXIDE 400MG TAB (MAG-OX) PO SCH (08:29)
[2022-01-20 12:00] VITALS: BP 108/68
[2022-01-20 16:00] VITALS: BP 108/66
[2022-01-20 19:40] VITALS: BP 98/60
[2022-01-20] MEDS: RAMELTEON 8 MG TAB (ROZEREM) PO PRN (22:12)
[2022-01-20] MEDS: oxyCODONE 20 MG CR TAB PO SCH (22:13)
[2022-01-20 23:44] VITALS: BP 108/62
[2022-01-21] MEDS: MORPHINE 4 MG/ML 1ML VIAL/SYRINGE IV PRN ×6 (01:48→22:01)
[2022-01-21 03:42] VITALS: BP 107/70
[2022-01-21] MEDS: AMOXICILLIN 500 MG CAP PO SCH ×3 (05:41→20:45)
[2022-01-21] MEDS: SODIUM CHLORIDE 0.9% INJ 10 ML SYR IV SCH ×2 (05:42→17:41)
[2022-01-21] MEDS: SYMBICORT 160/4.5MCG INHALER 6GM INH SCH ×2 (07:45→19:57)
[2022-01-21 08:00] VITALS: BP 104/60
[2022-01-21] MEDS: DULoxetine 30MG CAPSULE (CYMBALTA) PO SCH ×2 (09:09→20:45)
[2022-01-21] MEDS: levETIRAcetam 250MG TABLET (KEPPRA) PO SCH ×2 (09:09→20:44)
[2022-01-21] MEDS: GABAPENTIN 300 MG CAP PO SCH ×3 (09:09→20:44)
[2022-01-21] MEDS: FERROUS SULFATE 325MG TAB PO SCH (09:09)
[2022-01-21] MEDS: FLUoxetine 20MG CAP PO SCH (09:10)
[2022-01-21] MEDS: MAGNESIUM OXIDE 400MG TAB (MAG-OX) PO SCH (09:10)
[2022-01-21] MEDS: POTASSIUM CHLORIDE 10MEQ SR TABLET PO SCH (09:10)
[2022-01-21] MEDS: CLOPIDOGREL 75 MG TAB PO SCH (09:10)
[2022-01-21] MEDS: ATORVASTATIN 20 MG TAB PO SCH (09:10)
[2022-01-21] MEDS: PANTOPRAZOLE 40MG TAB (PROTONIX) PO SCH ×2 (09:10→20:45)
[2022-01-21] MEDS: oxyCODONE 20 MG CR TAB PO SCH ×2 (09:11→20:46)
[2022-01-21] MEDS: SODIUM CHLORIDE 0.9% INJ 10 ML SYR IV PRN (09:30)
[2022-01-21 12:00] VITALS: BP 109/69
[2022-01-21 16:00] VITALS: BP 101/67
[2022-01-21 19:39] VITALS: BP 104/62
[2022-01-21] MEDS: RAMELTEON 8 MG TAB (ROZEREM) PO PRN (20:45)
[2022-01-22] VITALS: BP 103/78
[2022-01-22] MEDS: AMOXICILLIN 500 MG CAP PO SCH ×3 (05:38→21:41)
[2022-01-22] MEDS: SODIUM CHLORIDE 0.9% INJ 10 ML SYR IV SCH ×2 (05:39→17:00)
[2022-01-22] MEDS: MORPHINE 4 MG/ML 1ML VIAL/SYRINGE IV PRN (05:39)
[2022-01-22] MEDS: SODIUM CHLORIDE 0.9% INJ 10 ML SYR IV PRN (05:39)
[2022-01-22 05:56] VITALS: BP 108/63
[2022-01-22 07:31] LABS: BASO % 0.3 % (0.0-1.0); EOS # 0.2 10^3/uL (0.0-0.5); EOS % 2.1 % (0.0-3.0); HEMATOCRIT 26.2 % (42.0-52.0); LYMPH # 1.1 10^3/uL (1.5-5.0); LYMPH % 12.5 % (24.0-44.0); MEAN CORPUSCULAR HGB CONC 30.5 g/dl (32.0-36.5); MEAN CORPUSCULAR VOLUME 81.9 fl (80.0-96.0); MONO % 11.1 % (2.0-8.0); NEUTROPHILS # 6.7 10^3/uL (1.5-8.5); NEUTROPHILS % 73.6 % (36.0-66.0); PLATELET COUNT, AUTOMATED 472 10^3/uL (150-450); WHITE BLOOD COUNT 9.2 10^3/uL (4.0-10.0)
[2022-01-22 08:00] VITALS: BP 103/66
[2022-01-22] MEDS: SYMBICORT 160/4.5MCG INHALER 6GM INH SCH ×2 (08:27→19:29)
[2022-01-22] MEDS: levETIRAcetam 250MG TABLET (KEPPRA) PO SCH ×2 (09:18→20:41)
[2022-01-22] MEDS: FLUoxetine 20MG CAP PO SCH (09:18)
[2022-01-22] MEDS: oxyCODONE 20 MG CR TAB PO SCH ×2 (09:18→20:43)
[2022-01-22] MEDS: FERROUS SULFATE 325MG TAB PO SCH (09:18)
[2022-01-22] MEDS: GABAPENTIN 300 MG CAP PO SCH ×3 (09:19→20:41)
[2022-01-22] MEDS: POTASSIUM CHLORIDE 10MEQ SR TABLET PO SCH (09:19)
[2022-01-22] MEDS: PANTOPRAZOLE 40MG TAB (PROTONIX) PO SCH ×2 (09:19→20:41)
[2022-01-22] MEDS: CLOPIDOGREL 75 MG TAB PO SCH (09:19)
[2022-01-22] MEDS: DULoxetine 30MG CAPSULE (CYMBALTA) PO SCH ×2 (09:19→20:42)
[2022-01-22] MEDS: ATORVASTATIN 20 MG TAB PO SCH (09:19)
[2022-01-22] MEDS: MAGNESIUM OXIDE 400MG TAB (MAG-OX) PO SCH (09:20)
[2022-01-22] MEDS: NORCO, ANEXSIA 5/325MG TABLET (HYDROcodone/ACETAMINOPHEN) PO PRN ×2 (11:18→16:59)
[2022-01-22 12:30] VITALS: BP 102/64
[2022-01-22 20:45] VITALS: BP 104/64
[2022-01-22 22:00] VITALS: BP 101/65
[2022-01-23 03:50] VITALS: BP 106/76
[2022-01-23] MEDS: NORCO, ANEXSIA 5/325MG TABLET (HYDROcodone/ACETAMINOPHEN) PO PRN ×2 (04:04→17:04)
[2022-01-23] MEDS: AMOXICILLIN 500 MG CAP PO SCH ×3 (06:53→21:15)
[2022-01-23] MEDS: SODIUM CHLORIDE 0.9% INJ 10 ML SYR IV SCH ×2 (06:54→17:04)
[2022-01-23] MEDS: SYMBICORT 160/4.5MCG INHALER 6GM INH SCH ×2 (07:54→19:53)
[2022-01-23] MEDS: oxyCODONE 20 MG CR TAB PO SCH ×2 (10:06→21:06)
[2022-01-23] MEDS: FERROUS SULFATE 325MG TAB PO SCH (10:43)
[2022-01-23] MEDS: ATORVASTATIN 20 MG TAB PO SCH (10:43)
[2022-01-23] MEDS: PANTOPRAZOLE 40MG TAB (PROTONIX) PO SCH ×2 (10:43→21:08)
[2022-01-23] MEDS: levETIRAcetam 250MG TABLET (KEPPRA) PO SCH ×2 (10:43→21:07)
[2022-01-23] MEDS: GABAPENTIN 300 MG CAP PO SCH ×3 (10:43→21:04)
[2022-01-23] MEDS: DULoxetine 30MG CAPSULE (CYMBALTA) PO SCH ×2 (10:43→21:06)
[2022-01-23] MEDS: CLOPIDOGREL 75 MG TAB PO SCH (10:44)
[2022-01-23] MEDS: POTASSIUM CHLORIDE 10MEQ SR TABLET PO SCH (10:44)
[2022-01-23] MEDS: FLUoxetine 20MG CAP PO SCH (10:44)
[2022-01-23] MEDS: MAGNESIUM OXIDE 400MG TAB (MAG-OX) PO SCH (10:44)
[2022-01-23 12:00] VITALS: BP 108/75
[2022-01-23] MEDS: RAMELTEON 8 MG TAB (ROZEREM) PO PRN (21:04)
[2022-01-23 21:10] VITALS: BP 107/64
[2022-01-24 04:00] VITALS: BP 101/66
[2022-01-24] MEDS: SODIUM CHLORIDE 0.9% INJ 10 ML SYR IV SCH (06:25)
[2022-01-24] MEDS: AMOXICILLIN 500 MG CAP PO SCH ×2 (06:25→15:33)
[2022-01-24] MEDS: NORCO, ANEXSIA 5/325MG TABLET (HYDROcodone/ACETAMINOPHEN) PO PRN (06:28)
[2022-01-24] MEDS: SYMBICORT 160/4.5MCG INHALER 6GM INH SCH (07:38)
[2022-01-24] MEDS: DULoxetine 30MG CAPSULE (CYMBALTA) PO SCH (08:59)
[2022-01-24] MEDS: oxyCODONE 20 MG CR TAB PO SCH (08:59)
[2022-01-24] MEDS: GABAPENTIN 300 MG CAP PO SCH ×2 (08:59→15:32)
[2022-01-24] MEDS: FERROUS SULFATE 325MG TAB PO SCH (09:00)
[2022-01-24] MEDS: levETIRAcetam 250MG TABLET (KEPPRA) PO SCH (09:00)
[2022-01-24] MEDS: POTASSIUM CHLORIDE 10MEQ SR TABLET PO SCH (09:00)
[2022-01-24] MEDS: PANTOPRAZOLE 40MG TAB (PROTONIX) PO SCH (09:00)
[2022-01-24] MEDS: ATORVASTATIN 20 MG TAB PO SCH (09:00)
[2022-01-24] MEDS: CLOPIDOGREL 75 MG TAB PO SCH (09:00)
[2022-01-24] MEDS: MAGNESIUM OXIDE 400MG TAB (MAG-OX) PO SCH (09:00)
[2022-01-24] MEDS: FLUoxetine 20MG CAP PO SCH (09:01)
[2022-01-24] MEDS ORDERED: HYDR-3715 PO (09:27)
[2022-01-24 12:00] VITALS: BP 108/77
[2022-01-26] MEDS ORDERED: AMOX500T PO (08:25)
== END 2022-01-24 16:58 | disposition home health service (06) | DRG 853 ==
LOC: M ED 07:22 → M ED INP 09:30 → M ICU 13:52 → M PCU 01-03 10:43 → M ICU 01-03 12:19 → M PCU 01-06 18:49 → M MSPAV 01-10 22:56 → M 4MAIN 01-14 12:52
PROVIDERS: ADMIT Surgery; ATTEND Surgery
PROC: 0DBM0ZZ Excision of Descending Colon, Open Approach (ICD-10-PCS; 2021-12-17)
PROC: 0D1N0Z4 Bypass Sigmoid Colon to Cutaneous, Open Approach (ICD-10-PCS; 2021-12-17)
PROC: 0DNN0ZZ Release Sigmoid Colon, Open Approach (ICD-10-PCS; 2021-12-17)
PROC: 0DJD8ZZ Inspection of Lower Intestinal Tract, Via Natural or Artificial Opening Endoscopic (ICD-10-PCS; 2021-12-17)
PROC: 0DBN0ZZ Excision of Sigmoid Colon, Open Approach (ICD-10-PCS; principal; 2021-12-17 09:32)
PROC: 5A1955Z Respiratory Ventilation, Greater than 96 Consecutive Hours (ICD-10-PCS; 2021-12-19)
PROC: 30233N1 Transfusion of Nonautologous Red Blood Cells into Peripheral Vein, Percutaneous Approach (ICD-10-PCS; 2021-12-20)
PROC: 02HV33Z Insertion of Infusion Device into Superior Vena Cava, Percutaneous Approach (ICD-10-PCS; 2021-12-25)
PROC: 0W9J3ZZ Drainage of Pelvic Cavity, Percutaneous Approach (ICD-10-PCS; 2021-12-26)
PROC: 0F9130Z Drainage of Right Lobe Liver with Drainage Device, Percutaneous Approach (ICD-10-PCS; 2022-01-03)
PROC: 0F20X0Z Change Drainage Device in Liver, External Approach (ICD-10-PCS; 2022-01-16)
DX: A41.9 Sepsis, unspecified organism (principal); R65.21 Severe sepsis with septic shock; K63.1 Perforation of intestine (nontraumatic); J96.91 Respiratory failure, unspecified with hypoxia; G93.41 Metabolic encephalopathy; I50.23 Acute on chronic systolic (congestive) heart failure; K65.1 Peritoneal abscess; K65.0 Generalized (acute) peritonitis; U07.1 COVID-19; E87.2 Acidosis; E46 Unspecified protein-calorie malnutrition; J81.1 Chronic pulmonary edema; R18.8 Other ascites; I47.2 Ventricular tachycardia; T81.49XA Infection following a procedure, other surgical site, initial encounter; K56.7 Ileus, unspecified; T81.31XA Disruption of external operation (surgical) wound, not elsewhere classified, initial encounter; J98.11 Atelectasis; J90 Pleural effusion, not elsewhere classified; E87.0 Hyperosmolality and hypernatremia; F11.20 Opioid dependence, uncomplicated; F32.A Depression, unspecified; K21.9 Gastro-esophageal reflux disease without esophagitis; E78.5 Hyperlipidemia, unspecified; Z68.35 Body mass index [BMI] 35.0-35.9, adult; D64.9 Anemia, unspecified; M48.00 Spinal stenosis, site unspecified; H02.849 Edema of unspecified eye, unspecified eyelid; I11.0 Hypertensive heart disease with heart failure; E66.9 Obesity, unspecified; J45.909 Unspecified asthma, uncomplicated; R56.9 Unspecified convulsions; I25.2 Old myocardial infarction; Z95.2 Presence of prosthetic heart valve; I25.10 Atherosclerotic heart disease of native coronary artery without angina pectoris; Z87.442 Personal history of urinary calculi; G47.00 Insomnia, unspecified; Z79.899 Other long term (current) drug therapy; Z88.8 Allergy status to other drugs, medicaments and biological substances; Z88.6 Allergy status to analgesic agent; F41.9 Anxiety disorder, unspecified; M16.12 Unilateral primary osteoarthritis, left hip; R26.89 Other abnormalities of gait and mobility; B95.5 Unspecified streptococcus as the cause of diseases classified elsewhere

== ENCOUNTER 2022-02-19 12:44 | Emergency (ER) | payer MEDICARE, MEDICAID ==
[~2022-02-19] VITALS: Ht 177.8 cm; Wt 105.5 kg
[~2022-02-19 12:44] MED LIST changes: +AMOX500T PO; +ATOR80TA59 PO; +BACL10TA2 PO; +CLOP75TA2 PO; +COMMENTS; +FERR325T19 PO; +FLUO40CA PO; +GABA600T4 PO; +HYDR-3715 PO; +MAGN400T2 PO; +METO1TAB7 PO; +PANT40TA29 PO; +POTA1TAB14 PO
[2022-02-19] MEDS ORDERED: NS 1,000 ML IV SCH (14:45)
[2022-02-19] MEDS ORDERED: PANTOPRAZOLE 40MG VIAL IV ONE (14:45)
[2022-02-19] MEDS ORDERED: ONDANSETRON 4MG 2ML VIAL IV ONE (14:45)
[2022-02-19 15:22] LABS: BASO # 0.1 10^3/uL (0.0-0.2); BASO % 0.6 % (0.0-1.0); EOS # 0.4 10^3/uL (0.0-0.5); EOS % 3.9 % (0.0-3.0); HEMATOCRIT 38.1 % (42.0-52.0); HEMOGLOBIN 11.9 g/dl (13.5-17.5); LYMPH # 2.1 10^3/uL (1.5-5.0); LYMPH % 21.8 % (24.0-44.0); MEAN CORPUSCULAR HEMOGLOBIN 25.2 pg (27.0-33.0); MEAN CORPUSCULAR HGB CONC 31.2 g/dl (32.0-36.5); MEAN CORPUSCULAR VOLUME 80.7 fl (80.0-96.0); MONO # 0.6 10^3/uL (0.0-0.8); MONO % 6.7 % (2.0-8.0); NEUTROPHILS # 6.3 10^3/uL (1.5-8.5); NEUTROPHILS % 66.7 % (36.0-66.0); PLATELET COUNT, AUTOMATED 431 10^3/uL (150-450); RED BLOOD COUNT 4.72 10^6/uL (4.30-6.10); WHITE BLOOD COUNT 9.4 10^3/uL (4.0-10.0)
[2022-02-19] MEDS: GASTROGRAFIN SOLUTION 30ML PO SCH ×2 (15:33→15:45)
[2022-02-19 15:35] LABS: INR 0.92; PROTHROMBIN TIME 12.8 SECONDS (12.7-14.5)
[2022-02-19 15:58] LABS: ALBUMIN 2.5 GM/DL (3.2-5.2); ALT/SGPT 17 U/L (12-78); BILIRUBIN,DIRECT 0.1 MG/DL (0.0-0.2); BILIRUBIN,TOTAL 0.6 MG/DL (0.2-1.0); BLOOD UREA NITROGEN 16 MG/DL (7-18); CARBON DIOXIDE LEVEL 24 MEQ/L (21-32); CHLORIDE LEVEL 107 MEQ/L (98-107); CREATININE FOR GFR 0.69 MG/DL (0.70-1.30); GLOMERULAR FILTRATION RATE > 60.0 (>60); GLUCOSE, FASTING 88 MG/DL (70-100); LIPASE 157 U/L (73-393); POTASSIUM SERUM 3.4 MEQ/L (3.5-5.1); SODIUM LEVEL 137 MEQ/L (136-145); TOTAL PROTEIN 7.7 GM/DL (6.4-8.2)
[2022-02-19 17:30] VITALS: BP 108/75
== END 2022-02-19 17:55 | disposition home or self-care (01) ==
LOC: M ED 12:44
DX: R10.9 Unspecified abdominal pain (principal); R19.7 Diarrhea, unspecified; I25.2 Old myocardial infarction; I10 Essential (primary) hypertension; G89.29 Other chronic pain; F17.200 Nicotine dependence, unspecified, uncomplicated; Z79.899 Other long term (current) drug therapy; Z88.6 Allergy status to analgesic agent; Z88.8 Allergy status to other drugs, medicaments and biological substances
CPT/HCPCS: 74176; 80048; 80076; 81001; 83690; 85025; 85610; 93041; 96361; 96374; 96375; 99285; C9113; J2405; Q9963

== ENCOUNTER 2022-04-04 19:52 | Inpatient (IN) | payer MEDICARE, MEDICAID ==
[~2022-04-04] VITALS: Ht 177.8 cm; Wt 102.3 kg
[2022-04-04] MEDS ORDERED: AMLO25TA PO (20:04)
[2022-04-04] MEDS ORDERED: DILA4TAB13 PO (20:04)
[2022-04-04] MEDS: GASTROGRAFIN SOLUTION 30ML PO SCH ×2 (21:55→22:30)
[2022-04-04] MEDS ORDERED: ISOVUE-370 76% 100ML VIAL As Ordered ONE (22:01)
[2022-04-04 22:05] LABS: BASO # 0.1 10^3/uL (0.0-0.2); BASO % 0.7 % (0.0-1.0); EOS # 0.3 10^3/uL (0.0-0.5); EOS % 3.2 % (0.0-3.0); HEMATOCRIT 42.6 % (42.0-52.0); HEMOGLOBIN 13.7 g/dl (13.5-17.5); LYMPH # 2.7 10^3/uL (1.5-5.0); MEAN CORPUSCULAR HEMOGLOBIN 25.6 pg (27.0-33.0); MEAN CORPUSCULAR HGB CONC 32.2 g/dl (32.0-36.5); MEAN CORPUSCULAR VOLUME 79.5 fl (80.0-96.0); MONO # 0.7 10^3/uL (0.0-0.8); MONO % 6.4 % (2.0-8.0); NEUTROPHILS # 6.9 10^3/uL (1.5-8.5); NEUTROPHILS % 64.4 % (36.0-66.0); PLATELET COUNT, AUTOMATED 331 10^3/uL (150-450); RED BLOOD COUNT 5.36 10^6/uL (4.30-6.10); WHITE BLOOD COUNT 10.7 10^3/uL (4.0-10.0)
[2022-04-04 22:17] LABS: INR 0.93; PROTHROMBIN TIME 12.9 SECONDS (12.7-14.5)
[2022-04-04 22:18] LABS: PARTIAL THROMBOPLASTIN TIME 31.5 SECONDS (25.9-37.0)
[2022-04-04 22:46] LABS: ALBUMIN 3.3 GM/DL (3.2-5.2); ALT/SGPT 29 U/L (12-78); BILIRUBIN,DIRECT 0.1 MG/DL (0.0-0.2); BILIRUBIN,TOTAL 0.3 MG/DL (0.2-1.0); BLOOD UREA NITROGEN 20 MG/DL (7-18); CALCIUM LEVEL 9.2 MG/DL (8.5-10.1); CARBON DIOXIDE LEVEL 21 MEQ/L (21-32); CHLORIDE LEVEL 108 MEQ/L (98-107); GLOMERULAR FILTRATION RATE > 60.0 (>60); GLUCOSE, FASTING 97 MG/DL (70-100); LIPASE 148 U/L (73-393); POTASSIUM SERUM 3.8 MEQ/L (3.5-5.1); SODIUM LEVEL 137 MEQ/L (136-145); TOTAL PROTEIN 8.2 GM/DL (6.4-8.2)
[2022-04-05 01:13] LABS: BASO % 0.5 % (0.0-1.0); EOS # 0.2 10^3/uL (0.0-0.5); EOS % 3.3 % (0.0-3.0); HEMATOCRIT 24.2 % (42.0-52.0); LYMPH # 1.6 10^3/uL (1.5-5.0); LYMPH % 25.5 % (24.0-44.0); MEAN CORPUSCULAR HEMOGLOBIN 25.5 pg (27.0-33.0); MEAN CORPUSCULAR HGB CONC 30.6 g/dl (32.0-36.5); MEAN CORPUSCULAR VOLUME 83.4 fl (80.0-96.0); MONO # 0.5 10^3/uL (0.0-0.8); NEUTROPHILS # 3.9 10^3/uL (1.5-8.5); NEUTROPHILS % 62.2 % (36.0-66.0); WHITE BLOOD COUNT 6.3 10^3/uL (4.0-10.0)
[2022-04-05 01:21] LABS: HEMOGLOBIN 7.4 g/dl (13.5-17.5); PLATELET COUNT, AUTOMATED 172 10^3/uL (150-450)
[2022-04-05] MEDS ORDERED: DILA4TAB13 PO (02:34)
[2022-04-05] MEDS ORDERED: HYDR-4571 PO (02:34)
[2022-04-05] MEDS ORDERED: HOME MED LIST COMPLETE! XX SCH (02:35)
[2022-04-05 03:20] LABS: RSV AMPLIFICATION NEGATIVE (NEGATIVE)
[2022-04-05] MEDS ORDERED: HYDROmorphone 4MG TABLET PO PRN (04:05)
[2022-04-05] MEDS ORDERED: NORCO, ANEXSIA 5/325MG TABLET (HYDROcodone/ACETAMINOPHEN) PO PRN (04:05)
[2022-04-05 04:21] LABS: HEMATOCRIT 41.4 % (42.0-52.0)
[2022-04-05 04:25] LABS: HEMOGLOBIN 13.2 g/dl (13.5-17.5)
[2022-04-05 07:22] LABS: HEMATOCRIT 43.5 % (42.0-52.0); HEMOGLOBIN 13.6 g/dl (13.5-17.5)
[2022-04-05] MEDS ORDERED: METOPROLOL SUCC (TopROL XL) 50MG **XL** TAB PO SCH (09:00)
[2022-04-05] MEDS ORDERED: PANTOPRAZOLE 40MG TAB (PROTONIX) PO SCH (09:00)
[2022-04-05] MEDS ORDERED: hydrOXYzine 50 MG TAB PO SCH (09:00)
[2022-04-05] MEDS ORDERED: DULoxetine 30MG CAPSULE (CYMBALTA) PO SCH (09:00)
[2022-04-05] MEDS ORDERED: FLUoxetine 20MG CAP PO SCH (09:00)
[2022-04-05] MEDS ORDERED: MAGNESIUM OXIDE 400MG TAB (MAG-OX) PO SCH (09:00)
[2022-04-05] MEDS ORDERED: POTASSIUM CHLORIDE 10MEQ SR TABLET PO SCH (09:00)
[2022-04-05] MEDS ORDERED: GABAPENTIN 300 MG CAP PO SCH (09:00)
[2022-04-05] MEDS ORDERED: ATORVASTATIN 20 MG TAB PO SCH (09:00)
[2022-04-05] MEDS ORDERED: FUROSEMIDE 20 MG TAB PO SCH (09:00)
[2022-04-05 10:13] VITALS: BP 156/96
[2022-04-05] MEDS ORDERED: BACLOFEN 10 MG TAB PO SCH (21:00)
== END 2022-04-05 10:51 | disposition home or self-care (01) | DRG 395 ==
LOC: M ED 21:20 → M ED INP 04-05 04:05
PROVIDERS: ADMIT Family Medicine; ATTEND Family Medicine
DX: K94.11 Enterostomy hemorrhage (principal); I10 Essential (primary) hypertension; E78.5 Hyperlipidemia, unspecified; I25.10 Atherosclerotic heart disease of native coronary artery without angina pectoris; Z95.5 Presence of coronary angioplasty implant and graft; K21.9 Gastro-esophageal reflux disease without esophagitis; F32.A Depression, unspecified; F17.210 Nicotine dependence, cigarettes, uncomplicated; Z20.822 Contact with and (suspected) exposure to COVID-19; Z79.899 Other long term (current) drug therapy; Z88.6 Allergy status to analgesic agent; Z88.8 Allergy status to other drugs, medicaments and biological substances; Z98.890 Other specified postprocedural states; Z87.891 Personal history of nicotine dependence

== ENCOUNTER 2022-05-14 13:11 | Emergency (ER) | payer MEDICARE, MEDICAID ==
[~2022-05-14] VITALS: Ht 177.8 cm; Wt 102.3 kg
[~2022-05-14 13:11] MED LIST changes: +AMLO25TA PO; +DILA4TAB13 PO; +HYDR-4571 PO
[2022-05-14] MEDS ORDERED: PANTOPRAZOLE 40MG VIAL IV ONE (14:00)
[2022-05-14] MEDS ORDERED: NS 1,000 ML IV SCH (14:00)
[2022-05-14 14:22] LABS: HEMATOCRIT 42.1 % (42.0-52.0); HEMOGLOBIN 13.3 g/dl (13.5-17.5); MEAN CORPUSCULAR HEMOGLOBIN 25.4 pg (27.0-33.0); MEAN CORPUSCULAR HGB CONC 31.6 g/dl (32.0-36.5); MEAN CORPUSCULAR VOLUME 80.3 fl (80.0-96.0); PLATELET COUNT, AUTOMATED 336 10^3/uL (150-450); RED BLOOD COUNT 5.24 10^6/uL (4.30-6.10); WHITE BLOOD COUNT 11.1 10^3/uL (4.0-10.0)
[2022-05-14 15:03] LABS: INR 0.88; PARTIAL THROMBOPLASTIN TIME 23.2 SECONDS (25.9-37.0); PROTHROMBIN TIME 12.3 SECONDS (12.7-14.5)
[2022-05-14 15:03] LABS: ALT/SGPT 18 U/L (12-78); BILIRUBIN,TOTAL 0.3 MG/DL (0.2-1.0); BLOOD UREA NITROGEN 15 MG/DL (7-18); CALCIUM LEVEL 8.8 MG/DL (8.5-10.1); CARBON DIOXIDE LEVEL 23 MEQ/L (21-32); CHLORIDE LEVEL 108 MEQ/L (98-107); GLOMERULAR FILTRATION RATE > 60.0 (>60); GLUCOSE, FASTING 68 MG/DL (70-100); LIPASE 119 U/L (73-393); POTASSIUM SERUM 4.9 MEQ/L (3.5-5.1); SODIUM LEVEL 137 MEQ/L (136-145); TOTAL PROTEIN 7.4 GM/DL (6.4-8.2)
[2022-05-14] MEDS: GASTROGRAFIN SOLUTION 30ML PO SCH ×2 (15:58→16:00)
[2022-05-14 17:00] VITALS: BP 119/79
[2022-05-14] MEDS ORDERED: ISOVUE-370 76% 100ML VIAL As Ordered ONE (17:24)
[2022-05-14] MEDS ORDERED: CIPROFLOXACIN 500MG TABLET PO ONE (19:10)
[2022-05-14] MEDS ORDERED: metroNIDAZOLE (FLAGYL) 500MG TABLET PO ONE (19:10)
[2022-05-14] MEDS ORDERED: CIPR-249 PO (19:12)
[2022-05-14] MEDS ORDERED: FLAG375C PO (19:12)
== END 2022-05-14 19:32 | disposition home or self-care (01) ==
LOC: M ED 13:11
DX: K52.9 Noninfective gastroenteritis and colitis, unspecified (principal); I25.2 Old myocardial infarction; I10 Essential (primary) hypertension; F17.200 Nicotine dependence, unspecified, uncomplicated; Z79.899 Other long term (current) drug therapy; Z88.8 Allergy status to other drugs, medicaments and biological substances; Z88.6 Allergy status to analgesic agent
CPT/HCPCS: 74177; 80053; 83690; 85027; 85610; 85730; 96361; 96374; 99284; C9113; Q9963; Q9967

== ENCOUNTER → 2022-05-30 | Outpatient (CLI) | payer MEDICARE, MEDICAID ==
[~2022-05-30] MED LIST changes: +CIPR-249 PO; +FLAG375C PO
== END ==
LOC: M WHC 09:19
PROVIDERS: ATTEND Physician Assistant
DX: R10.30 Lower abdominal pain, unspecified (principal)

== ENCOUNTER → 2022-07-09 | Outpatient (CLI) | payer MEDICARE, MEDICAID | LOC: M LABSMTC 09:33 | PROVIDERS: ATTEND Anesthesiology | DX: Z01.812 Encounter for preprocedural laboratory examination (principal); Z11.52 Encounter for screening for COVID-19 ==

== ENCOUNTER 2022-07-13 09:12 | Day surgery (SDC) | payer MEDICARE, MEDICAID ==
[~2022-07-13] VITALS: Ht 177.8 cm; Wt 102.3 kg
[~2022-07-13 09:12] MED LIST changes: +NS 1,000 ML IV ONE
[2022-07-13] MEDS ORDERED: propofoL 500 MG/50 ML VIAL As Ordered ONE (09:15)
[2022-07-13] MEDS ORDERED: fentaNYL 100 MCG/2 ML INJECTION As Ordered ONE (10:23)
[2022-07-13 11:40] VITALS: BP 112/76
== END 2022-07-13 11:47 | disposition home or self-care (01) ==
LOC: M OPP 09:12
PROVIDERS: ATTEND Surgery
DX: Z87.19 Personal history of other diseases of the digestive system (principal); Z90.49 Acquired absence of other specified parts of digestive tract; K29.70 Gastritis, unspecified, without bleeding; I10 Essential (primary) hypertension; D50.9 Iron deficiency anemia, unspecified; F32.9 Major depressive disorder, single episode, unspecified; F41.9 Anxiety disorder, unspecified; I25.2 Old myocardial infarction; Z79.02 Long term (current) use of antithrombotics/antiplatelets; Z79.891 Long term (current) use of opiate analgesic; Z79.899 Other long term (current) drug therapy; Z88.6 Allergy status to analgesic agent; Z88.8 Allergy status to other drugs, medicaments and biological substances
CPT/HCPCS: 43239; 45378; 88305; J3010

== ENCOUNTER 2022-08-28 13:22 | Emergency (ER) | payer MEDICARE, MEDICAID ==
[~2022-08-28] VITALS: Ht 177.8 cm; Wt 104.5 kg
[~2022-08-28 13:22] MED LIST changes: -NS 1,000 ML IV ONE
[2022-08-28 17:16] LABS: LIPASE 26 U/L (12-53)
[2022-08-28 17:17] LABS: BILIRUBIN,DIRECT 0.1 MG/DL (<0.4)
[2022-08-28 17:44] LABS: ALBUMIN 3.6 G/DL (3.2-5.2); ALKALINE PHOSPHATASE 82 U/L (46-116); ALT/SGPT 15 U/L (7.0-40); AST/SGOT 25 U/L (<34); BILIRUBIN,TOTAL 0.5 MG/DL (0.3-1.2); BLOOD UREA NITROGEN 9 MG/DL (9-23); CALCIUM LEVEL 8.7 MG/DL (8.5-10.1); CARBON DIOXIDE LEVEL 23 MMOL/L (20-31); CHLORIDE LEVEL 103 MMOL/L (98-107); CREATININE FOR GFR 0.94 MG/DL (0.70-1.30); GLOMERULAR FILTRATION RATE > 60.0 (>60); GLUCOSE, FASTING 85 MG/DL (60-100); POTASSIUM SERUM 3.8 MMOL/L (3.5-5.1); SODIUM LEVEL 137 MMOL/L (136-145); TOTAL PROTEIN 8.5 G/DL (5.7-8.2)
[2022-08-28] MEDS ORDERED: MORPHINE 4 MG/ML 1ML VIAL IV ONE (18:00)
[2022-08-28] MEDS ORDERED: NS 500 ML IV ONE ×2 (18:25→20:05)
[2022-08-28 18:35] LABS: CK-MB VALUE MASS < 1.0 NG/ML (<3.6)
[2022-08-28 18:37] LABS: CPK CREATINE PHOSPHOKINASE 82 U/L (46-171); MB/CK RELATIVE INDEX 1.21 (< OR =4)
[2022-08-28 18:44] LABS: BASO % 0.3 % (0.0-1.0); EOS # 0.2 10^3/uL (0.0-0.5); EOS % 1.8 % (0.0-3.0); HEMATOCRIT 42.9 % (42.0-52.0); HEMOGLOBIN 13.8 g/dl (13.5-17.5); LYMPH # 1.1 10^3/uL (1.5-5.0); LYMPH % 10.9 % (24.0-44.0); MEAN CORPUSCULAR HEMOGLOBIN 26.6 pg (27.0-33.0); MEAN CORPUSCULAR HGB CONC 32.2 g/dl (32.0-36.5); MEAN CORPUSCULAR VOLUME 82.7 fl (80.0-96.0); MONO # 0.7 10^3/uL (0.0-0.8); MONO % 7.5 % (2.0-8.0); NEUTROPHILS # 7.6 10^3/uL (1.5-8.5); NEUTROPHILS % 79.2 % (36.0-66.0); PLATELET COUNT, AUTOMATED 251 10^3/uL (150-450); RED BLOOD COUNT 5.19 10^6/uL (4.30-6.10); WHITE BLOOD COUNT 9.6 10^3/uL (4.0-10.0)
[2022-08-28] MEDS ORDERED: IPRATROPIUM 0.5MG/ALBUTEROL 2.5MG INH SOL UD 3ML (DUONEB) NEB ONE (18:50)
[2022-08-28] MEDS ORDERED: ISOVUE-370 76% 100ML VIAL As Ordered ONE (18:52)
[2022-08-28 19:16] LABS: RSV AMPLIFICATION NEGATIVE (NEGATIVE)
[2022-08-28] MEDS ORDERED: diazePAM 10MG/2ML SYRINGE IV ONE (20:00)
[2022-08-28] MEDS ORDERED: CIPROFLOXACIN 400 MG in IV 1 EA IV ONE (21:15)
[2022-08-28] MEDS ORDERED: metroNIDAZOLE 500 MG in IV 1 EA IV ONE (21:15)
[2022-08-28] MEDS ORDERED: HYDROMORPHONE HCL 0.5 MG/ 0.5 ML SYRINGE IV ONE (21:30)
[2022-08-28] MEDS ORDERED: CIPR-249 PO (22:43)
[2022-08-28] MEDS ORDERED: METR-265 PO (22:45)
[2022-08-28 22:52] VITALS: BP 117/89
[2022-08-28] MEDS ORDERED: diphenhydrAMINE 50MG/ML VIAL As Ordered ONE (22:59)
[2022-08-28] MEDS ORDERED: diphenhydrAMINE 50MG/ML VIAL IV STA (23:01)
[2022-08-28] MEDS ORDERED: AMOX875T2 PO (23:14)
== END 2022-08-28 23:44 | disposition home or self-care (01) ==
LOC: M ED 13:22
DX: K52.9 Noninfective gastroenteritis and colitis, unspecified (principal); E88.89 Other specified metabolic disorders; S32.010A Wedge compression fracture of first lumbar vertebra, initial encounter for closed fracture; I10 Essential (primary) hypertension; I25.10 Atherosclerotic heart disease of native coronary artery without angina pectoris; I25.2 Old myocardial infarction; Z91.09 Other allergy status, other than to drugs and biological substances; F17.200 Nicotine dependence, unspecified, uncomplicated; Z79.899 Other long term (current) drug therapy
CPT/HCPCS: 71046; 71275; 74177; 76705; 80048; 80076; 82550; 82553; 83605; 83690; 83880; 84484; 85025; 87040; 87070; 87205; 87507; 87631; 93005; 94640; 96361; 96374; 96375; 99284; J0744; J1170; J1200; J2270; J3360; Q9967

== ENCOUNTER → 2022-10-25 | Outpatient (REF) | payer MEDICARE, MEDICAID ==
[~2022-10-25] MED LIST changes: +AMOX875T2 PO; +METR-265 PO
[2022-10-25 19:33] LABS: BASO # 0.1 10^3/uL (0.0-0.2); BASO % 0.5 % (0.0-1.0); EOS # 0.4 10^3/uL (0.0-0.5); EOS % 3.4 % (0.0-3.0); HEMOGLOBIN 12.2 g/dl (13.5-17.5); LYMPH # 2.7 10^3/uL (1.5-5.0); LYMPH % 20.6 % (24.0-44.0); MEAN CORPUSCULAR HEMOGLOBIN 26.5 pg (27.0-33.0); MEAN CORPUSCULAR HGB CONC 30.5 g/dl (32.0-36.5); MONO % 7.8 % (2.0-8.0); NEUTROPHILS # 8.7 10^3/uL (1.5-8.5); NEUTROPHILS % 66.9 % (36.0-66.0); PLATELET COUNT, AUTOMATED 723 10^3/uL (150-450)
[2022-10-25 20:21] LABS: IRON (FE) 19 UG/DL (65-175)
[2022-10-25 20:56] LABS: BLOOD UREA NITROGEN 12 MG/DL (9-23); CALCIUM LEVEL 8.9 MG/DL (8.5-10.1); CARBON DIOXIDE LEVEL 22 MMOL/L (20-31); CHLORIDE LEVEL 108 MMOL/L (98-107); CREATININE FOR GFR 0.86 MG/DL (0.70-1.30); GLOMERULAR FILTRATION RATE > 60.0 (>60); GLUCOSE, FASTING 113 MG/DL (60-100); SODIUM LEVEL 139 MMOL/L (136-145)
[2022-10-25 20:57] LABS: ALBUMIN 2.6 G/DL (3.2-5.2); ALKALINE PHOSPHATASE 67 U/L (46-116); ALT/SGPT 16 U/L (7.0-40); AST/SGOT 26 U/L (<34); BILIRUBIN,TOTAL 0.3 MG/DL (0.3-1.2); CHOLESTEROL LEVEL 125 MG/DL (<200); CHOLESTEROL RISK RATIO 4.61 (<5); HDL CHOLESTEROL 27.1 MG/DL (>40); LDL CHOLESTEROL 50.7 MG/DL (<100); NON-HDL-C 97.9 MG/DL; TOTAL PROTEIN 7.3 G/DL (5.7-8.2); TRIGLYCERIDES LEVEL 236 MG/DL (<150)
[2022-10-25 21:53] LABS: MAGNESIUM LEVEL 1.4 MG/DL (1.8-2.4)
== END ==
LOC: M SFHCCLAY 14:19
PROVIDERS: ATTEND Family Medicine
DX: D50.9 Iron deficiency anemia, unspecified (principal); I10 Essential (primary) hypertension; E78.2 Mixed hyperlipidemia; R73.01 Impaired fasting glucose

== ENCOUNTER 2023-04-04 11:06 | Inpatient (IN) | payer MEDICARE, MEDICAID ==
[~2023-04-04] VITALS: Ht 177.8 cm; Wt 118.8 kg
[~2023-04-04 11:06] MED LIST changes: +POTA-298 PO; -POTA1TAB14 PO
[2023-04-04] MEDS ORDERED: CIPR-249 PO ×2 (11:24→22:55)
[2023-04-04] MEDS ORDERED: NS 1,000 ML IV ONE (12:25)
[2023-04-04 13:02] LABS: BASO # 0.1 10^3/uL (0.0-0.2); BASO % 0.5 % (0.0-1.0); EOS # 0.3 10^3/uL (0.0-0.5); EOS % 3.1 % (0.0-3.0); HEMATOCRIT 34.9 % (42.0-52.0); HEMOGLOBIN 10.7 g/dl (13.5-17.5); LYMPH # 2.3 10^3/uL (1.5-5.0); LYMPH % 21.4 % (24.0-44.0); MEAN CORPUSCULAR HEMOGLOBIN 23.4 pg (27.0-33.0); MEAN CORPUSCULAR HGB CONC 30.7 g/dl (32.0-36.5); MEAN CORPUSCULAR VOLUME 76.2 fl (80.0-96.0); MONO # 0.8 10^3/uL (0.0-0.8); MONO % 7.9 % (2.0-8.0); NEUTROPHILS # 7.1 10^3/uL (1.5-8.5); NEUTROPHILS % 66.7 % (36.0-66.0); RED BLOOD COUNT 4.58 10^6/uL (4.30-6.10); WHITE BLOOD COUNT 10.6 10^3/uL (4.0-10.0)
[2023-04-04] MEDS ORDERED: ISOVUE-370 76% 100ML VIAL As Ordered ONE (13:04)
[2023-04-04 13:18] LABS: INR 1.02; PARTIAL THROMBOPLASTIN TIME 23.9 SECONDS (24.8-34.2); PROTHROMBIN TIME 13.2 SECONDS (12.5-14.5)
[2023-04-04 13:32] LABS: ALBUMIN 2.4 G/DL (3.2-5.2); BILIRUBIN,DIRECT 0.1 MG/DL (<0.4); BILIRUBIN,TOTAL 0.3 MG/DL (0.3-1.2); TOTAL PROTEIN 6.6 G/DL (5.7-8.2)
[2023-04-04] MEDS ORDERED: fentaNYL 100 MCG/2 ML INJECTION IV ONE ×2 (13:50→15:55)
[2023-04-04] MEDS ORDERED: PIPERACILLIN/TAZOBACTAM SOD 3.375 GM in D5W MINI-BAG PLUS 50 ML IV ONE (14:30)
[2023-04-04] MEDS ORDERED: MORPHINE 4 MG/ML 1ML VIAL IV PRN (20:25)
[2023-04-04] MEDS ORDERED: ONDANSETRON 4MG 2ML VIAL IV PRN (20:25)
[2023-04-04 20:40] LABS: RSV AMPLIFICATION NEGATIVE (NEGATIVE)
[2023-04-04] MEDS ORDERED: ALBUTEROL SULFATE 2.5MG/0.5ML INH NEB SOLN NEB PRN (21:00)
[2023-04-04 22:22] VITALS: BP 119/67; TEMP 98.3; O2SAT 96
[2023-04-04] MEDS: PIPERACILLIN/TAZOBACTAM SOD 3.375 GM in D5W MINI-BAG PLUS 50 ML IV SCH (22:31)
[2023-04-04] MEDS ORDERED: ASPI-161 PO (22:52)
[2023-04-04] MEDS ORDERED: EZET10TA21 PO (22:52)
[2023-04-04] MEDS ORDERED: GABA600T4 PO (22:52)
[2023-04-04] MEDS ORDERED: ONDA8TAB8 PO (22:52)
[2023-04-04] MEDS ORDERED: FERR5MLUD PO (22:52)
[2023-04-04] MEDS ORDERED: NITR4TASL SL (22:52)
[2023-04-04] MEDS ORDERED: MED REC IN PROGRESS XX SCH (23:00)
[2023-04-04] MEDS ORDERED: HOME MED LIST COMPLETE! XX SCH (23:50)
[2023-04-05] MEDS: LR 1,000 ML IV SCH ×4 (00:01→20:50)
[2023-04-05] MEDS ORDERED: HYDROMORPHONE HCL 0.5 MG/ 0.5 ML SYRINGE IV PRN (01:55)
[2023-04-05] MEDS: PIPERACILLIN/TAZOBACTAM SOD 3.375 GM in D5W MINI-BAG PLUS 50 ML IV SCH ×4 (02:18→20:52)
[2023-04-05] MEDS: HYDROMORPHONE HCL 0.5 MG/ 0.5 ML SYRINGE IV PRN ×5 (02:19→20:53)
[2023-04-05] MEDS: IPRATROPIUM 0.5MG/ALBUTEROL 2.5MG INH SOL UD 3ML (DUONEB) NEB SCH ×4 (03:17→21:08)
[2023-04-05 06:11] LABS: HEMATOCRIT 34.1 % (42.0-52.0); HEMOGLOBIN 10.5 g/dl (13.5-17.5); MEAN CORPUSCULAR HGB CONC 30.8 g/dl (32.0-36.5); MEAN CORPUSCULAR VOLUME 77.9 fl (80.0-96.0); PLATELET COUNT, AUTOMATED 323 10^3/uL (150-450); RED BLOOD COUNT 4.38 10^6/uL (4.30-6.10); WHITE BLOOD COUNT 8.3 10^3/uL (4.0-10.0)
[2023-04-05 06:19] VITALS: BP 126/69; TEMP 97.5; O2SAT 91
[2023-04-05 06:42] LABS: BLOOD UREA NITROGEN 11 MG/DL (9-23); CALCIUM LEVEL 8.4 MG/DL (8.5-10.1); CARBON DIOXIDE LEVEL 27 MMOL/L (20-31); CHLORIDE LEVEL 104 MMOL/L (98-107); CREATININE FOR GFR 0.99 MG/DL (0.70-1.30); GLOMERULAR FILTRATION RATE > 60.0 (>56); GLUCOSE, FASTING 78 MG/DL (60-100); SODIUM LEVEL 138 MMOL/L (136-145)
[2023-04-05] MEDS: PANTOPRAZOLE 40MG VIAL IV SCH (08:56)
[2023-04-05] MEDS ORDERED: PANTOPRAZOLE 40MG TAB (PROTONIX) PO SCH (09:00)
[2023-04-05] MEDS ORDERED: FLUoxetine 20MG CAP PO SCH (09:00)
[2023-04-05] MEDS ORDERED: LIDOCAINE 1% MDV 20ML VIAL As Ordered ONE (10:25)
[2023-04-05 14:00] VITALS: BP 125/70; TEMP 98; O2SAT 96
[2023-04-05] MEDS ORDERED: HEPARIN SOD (PORCINE) 5000UNITS/ML 1ML VIAL/SYRINGE SC SCH (14:00)
[2023-04-05] MEDS: GABAPENTIN 400MG CAP PO SCH (15:39)
[2023-04-05] MEDS: ATORVASTATIN 20 MG TAB PO SCH (15:39)
[2023-04-05] MEDS: FLUoxetine 20MG CAP PO SCH (15:40)
[2023-04-05] MEDS: EZETIMIBE 10MG TABLET (ZETIA) PO SCH (15:40)
[2023-04-05 20:00] VITALS: BP 110/67; TEMP 97.5; O2SAT 100
[2023-04-05] MEDS: GABAPENTIN 300 MG CAP PO SCH (20:52)
[2023-04-05] MEDS: DULoxetine 30MG CAPSULE (CYMBALTA) PO SCH (20:52)
[2023-04-05] MEDS: BACLOFEN 10 MG TAB PO SCH (20:53)
[2023-04-06] MEDS: IPRATROPIUM 0.5MG/ALBUTEROL 2.5MG INH SOL UD 3ML (DUONEB) NEB SCH ×2 (02:35→07:45)
[2023-04-06] MEDS: HYDROMORPHONE HCL 0.5 MG/ 0.5 ML SYRINGE IV PRN ×8 (02:55→23:32)
[2023-04-06] MEDS: PIPERACILLIN/TAZOBACTAM SOD 3.375 GM in D5W MINI-BAG PLUS 50 ML IV SCH ×4 (02:56→21:25)
[2023-04-06] MEDS: LR 1,000 ML IV SCH (04:25)
[2023-04-06 05:37] LABS: BASO % 0.4 % (0.0-1.0); EOS # 0.2 10^3/uL (0.0-0.5); EOS % 2.6 % (0.0-3.0); HEMATOCRIT 31.9 % (42.0-52.0); LYMPH # 1.4 10^3/uL (1.5-5.0); LYMPH % 19.4 % (24.0-44.0); MEAN CORPUSCULAR HEMOGLOBIN 24.1 pg (27.0-33.0); MEAN CORPUSCULAR HGB CONC 31.3 g/dl (32.0-36.5); MEAN CORPUSCULAR VOLUME 76.9 fl (80.0-96.0); MONO # 0.5 10^3/uL (0.0-0.8); MONO % 6.9 % (2.0-8.0); NEUTROPHILS # 5.2 10^3/uL (1.5-8.5); NEUTROPHILS % 70.2 % (36.0-66.0); PLATELET COUNT, AUTOMATED 308 10^3/uL (150-450); RED BLOOD COUNT 4.15 10^6/uL (4.30-6.10); WHITE BLOOD COUNT 7.4 10^3/uL (4.0-10.0)
[2023-04-06 06:00] VITALS: BP 106/65; TEMP 97.7; O2SAT 95
[2023-04-06 06:03] LABS: ALBUMIN 2.2 G/DL (3.2-5.2); ALKALINE PHOSPHATASE 100 U/L (46-116); ALT/SGPT 30 U/L (7.0-40); AST/SGOT 41 U/L (<34); BILIRUBIN,TOTAL 0.6 MG/DL (0.3-1.2); BLOOD UREA NITROGEN 9 MG/DL (9-23); CALCIUM LEVEL 8.5 MG/DL (8.5-10.1); CARBON DIOXIDE LEVEL 27 MMOL/L (20-31); CHLORIDE LEVEL 106 MMOL/L (98-107); CREATININE FOR GFR 1.01 MG/DL (0.70-1.30); GLOMERULAR FILTRATION RATE > 60.0 (>56); GLUCOSE, FASTING 99 MG/DL (60-100); POTASSIUM SERUM 3.6 MMOL/L (3.5-5.1); SODIUM LEVEL 142 MMOL/L (136-145); TOTAL PROTEIN 5.9 G/DL (5.7-8.2)
[2023-04-06 08:00] VITALS: BP 105/59; TEMP 97.9; O2SAT 93
[2023-04-06] MEDS: ATORVASTATIN 20 MG TAB PO SCH (08:39)
[2023-04-06] MEDS: ASPIRIN 81MG ENTERIC TABLET PO SCH (08:39)
[2023-04-06] MEDS: GABAPENTIN 400MG CAP PO SCH (08:40)
[2023-04-06] MEDS: FLUoxetine 20MG CAP PO SCH (08:41)
[2023-04-06] MEDS: DULoxetine 30MG CAPSULE (CYMBALTA) PO SCH ×2 (08:41→21:26)
[2023-04-06] MEDS: PANTOPRAZOLE 40MG VIAL IV SCH (08:41)
[2023-04-06] MEDS: EZETIMIBE 10MG TABLET (ZETIA) PO SCH (08:41)
[2023-04-06] MEDS ORDERED: FERROUS SULFATE 300MG/5ML UDC LIQUID PO SCH (09:00)
[2023-04-06] MEDS ORDERED: GABAPENTIN 400MG CAP PO SCH (09:00)
[2023-04-06 09:30] VITALS: O2SAT 93
[2023-04-06 14:00] VITALS: BP 106/59; TEMP 97.7; O2SAT 94
[2023-04-06] MEDS ORDERED: LIDOCAINE W/EPINEPHRINE 1% 20ML VIAL SC ONE (14:05)
[2023-04-06] MEDS: GABAPENTIN 300 MG CAP PO SCH (21:26)
[2023-04-06] MEDS: BACLOFEN 10 MG TAB PO SCH (21:26)
[2023-04-06 22:00] VITALS: BP 129/77; TEMP 97.2; O2SAT 94
[2023-04-07] MEDS: PIPERACILLIN/TAZOBACTAM SOD 3.375 GM in D5W MINI-BAG PLUS 50 ML IV SCH ×4 (03:21→21:28)
[2023-04-07] MEDS: HYDROMORPHONE HCL 0.5 MG/ 0.5 ML SYRINGE IV PRN ×2 (03:22→06:53)
[2023-04-07 06:00] VITALS: BP 115/47; TEMP 97.7; O2SAT 96
[2023-04-07] MEDS ORDERED: HYDROMORPHONE HCL 0.5 MG/ 0.5 ML SYRINGE IV PRN ×3 (07:25→15:25)
[2023-04-07] MEDS: PANTOPRAZOLE 40MG VIAL IV SCH (07:53)
[2023-04-07] MEDS: EZETIMIBE 10MG TABLET (ZETIA) PO SCH (07:54)
[2023-04-07] MEDS: ASPIRIN 81MG ENTERIC TABLET PO SCH (07:54)
[2023-04-07] MEDS: DULoxetine 30MG CAPSULE (CYMBALTA) PO SCH ×2 (07:54→21:18)
[2023-04-07] MEDS: FLUoxetine 20MG CAP PO SCH (07:54)
[2023-04-07] MEDS: GABAPENTIN 400MG CAP PO SCH (07:54)
[2023-04-07] MEDS: ATORVASTATIN 20 MG TAB PO SCH (07:55)
[2023-04-07] MEDS: NICOTINE 14 MG/24 HR TRANSDERMAL TD SCH (12:28)
[2023-04-07 14:00] VITALS: BP 122/70; TEMP 98.1; O2SAT 95
[2023-04-07] MEDS: NORCO, ANEXSIA 5/325MG TABLET (HYDROcodone/ACETAMINOPHEN) PO PRN ×2 (14:25→21:19)
[2023-04-07] MEDS ORDERED: EPIDURAL/PCA KEYS XX PRN (16:20)
[2023-04-07] MEDS ORDERED: diphenhydrAMINE 50MG/ML VIAL IV PRN (16:20)
[2023-04-07] MEDS ORDERED: NS 1,000 ML IV SCH (16:20)
[2023-04-07] MEDS ORDERED: NALOXONE INJ 0.4MG/1ML VIAL IV PRN (16:20)
[2023-04-07] MEDS: MORPHINE 1MG/ML IN 0.9% NACL 100ML IV BAG IV PRN (17:03)
[2023-04-07 20:24] VITALS: BP 119/76; TEMP 97.5; O2SAT 96
[2023-04-07] MEDS: GABAPENTIN 300 MG CAP PO SCH (21:17)
[2023-04-07] MEDS: BACLOFEN 10 MG TAB PO SCH (21:18)
[2023-04-08] MEDS: PIPERACILLIN/TAZOBACTAM SOD 3.375 GM in D5W MINI-BAG PLUS 50 ML IV SCH ×5 (03:57→20:43)
[2023-04-08 05:39] VITALS: BP 122/77; TEMP 97.5; O2SAT 92
[2023-04-08 06:20] LABS: BASO % 0.4 % (0.0-1.0); EOS # 0.5 10^3/uL (0.0-0.5); EOS % 4.7 % (0.0-3.0); HEMATOCRIT 35.1 % (42.0-52.0); HEMOGLOBIN 10.7 g/dl (13.5-17.5); LYMPH # 1.4 10^3/uL (1.5-5.0); MEAN CORPUSCULAR HEMOGLOBIN 23.8 pg (27.0-33.0); MEAN CORPUSCULAR HGB CONC 30.5 g/dl (32.0-36.5); MONO # 0.6 10^3/uL (0.0-0.8); MONO % 6.7 % (2.0-8.0); NEUTROPHILS % 72.8 % (36.0-66.0); PLATELET COUNT, AUTOMATED 311 10^3/uL (150-450); WHITE BLOOD COUNT 9.6 10^3/uL (4.0-10.0)
[2023-04-08 06:48] LABS: BLOOD UREA NITROGEN 11 MG/DL (9-23); CALCIUM LEVEL 8.4 MG/DL (8.5-10.1); CARBON DIOXIDE LEVEL 28 MMOL/L (20-31); CHLORIDE LEVEL 104 MMOL/L (98-107); CREATININE FOR GFR 1.03 MG/DL (0.70-1.30); GLOMERULAR FILTRATION RATE > 60.0 (>56); GLUCOSE, FASTING 87 MG/DL (60-100); MAGNESIUM LEVEL 1.5 MG/DL (1.8-2.4); SODIUM LEVEL 141 MMOL/L (136-145)
[2023-04-08] MEDS: MORPHINE 1MG/ML IN 0.9% NACL 100ML IV BAG IV PRN (07:27)
[2023-04-08] MEDS: EZETIMIBE 10MG TABLET (ZETIA) PO SCH (09:18)
[2023-04-08] MEDS: ASPIRIN 81MG ENTERIC TABLET PO SCH (09:18)
[2023-04-08] MEDS: FLUoxetine 20MG CAP PO SCH (09:19)
[2023-04-08] MEDS: GABAPENTIN 400MG CAP PO SCH (09:19)
[2023-04-08] MEDS: ATORVASTATIN 20 MG TAB PO SCH (09:19)
[2023-04-08] MEDS: DULoxetine 30MG CAPSULE (CYMBALTA) PO SCH ×2 (09:20→20:43)
[2023-04-08] MEDS: NICOTINE 14 MG/24 HR TRANSDERMAL TD SCH (09:22)
[2023-04-08] MEDS: PANTOPRAZOLE 40MG TAB (PROTONIX) PO SCH (09:28)
[2023-04-08 11:47] VITALS: BP 119/75; TEMP 97.5; O2SAT 95
[2023-04-08] MEDS: HYDROmorphone HCL 2MG/ML 1ML VIAL IV PRN ×4 (12:12→22:14)
[2023-04-08] MEDS: MAG SULF 1GM/100ML (MAG RUN) 1 GM in IV 1 EA IV SCH ×5 (14:00→19:02)
[2023-04-08 15:33] VITALS: BP 109/84; TEMP 96.9; O2SAT 98
[2023-04-08 20:36] VITALS: BP 116/70; TEMP 97.1; O2SAT 96
[2023-04-08] MEDS: GABAPENTIN 300 MG CAP PO SCH (20:43)
[2023-04-08] MEDS: BACLOFEN 10 MG TAB PO SCH (20:43)
[2023-04-09] VITALS (19 sets, daily range): BP systolic 114–143; BP diastolic 63–78; TEMP 96.2–97.9; O2SAT 89–97
[2023-04-09] MEDS: HYDROmorphone HCL 2MG/ML 1ML VIAL IV PRN ×4 (01:56→22:54)
[2023-04-09] MEDS: PIPERACILLIN/TAZOBACTAM SOD 3.375 GM in D5W MINI-BAG PLUS 50 ML IV SCH ×4 (03:23→20:50)
[2023-04-09] MEDS: GASTROGRAFIN SOLUTION 30ML PO SCH ×2 (06:01→06:34)
[2023-04-09 06:59] LABS: BASO % 0.3 % (0.0-1.0); EOS # 0.6 10^3/uL (0.0-0.5); EOS % 5.8 % (0.0-3.0); HEMOGLOBIN 10.2 g/dl (13.5-17.5); LYMPH # 1.5 10^3/uL (1.5-5.0); LYMPH % 14.9 % (24.0-44.0); MEAN CORPUSCULAR HEMOGLOBIN 24.1 pg (27.0-33.0); MEAN CORPUSCULAR HGB CONC 30.9 g/dl (32.0-36.5); MONO # 0.8 10^3/uL (0.0-0.8); NEUTROPHILS # 7.3 10^3/uL (1.5-8.5); NEUTROPHILS % 70.5 % (36.0-66.0); PLATELET COUNT, AUTOMATED 308 10^3/uL (150-450); RED BLOOD COUNT 4.23 10^6/uL (4.30-6.10); WHITE BLOOD COUNT 10.3 10^3/uL (4.0-10.0)
[2023-04-09 07:14] LABS: BLOOD UREA NITROGEN 12 MG/DL (9-23); CALCIUM LEVEL 8.1 MG/DL (8.5-10.1); CARBON DIOXIDE LEVEL 28 MMOL/L (20-31); CHLORIDE LEVEL 102 MMOL/L (98-107); CREATININE FOR GFR 0.98 MG/DL (0.70-1.30); GLOMERULAR FILTRATION RATE > 60.0 (>56); GLUCOSE, FASTING 101 MG/DL (60-100); POTASSIUM SERUM 4.1 MMOL/L (3.5-5.1); SODIUM LEVEL 136 MMOL/L (136-145)
[2023-04-09] MEDS ORDERED: ISOVUE-370 76% 100ML VIAL As Ordered ONE (07:35)
[2023-04-09] MEDS: ATORVASTATIN 20 MG TAB PO SCH (08:30)
[2023-04-09] MEDS: EZETIMIBE 10MG TABLET (ZETIA) PO SCH (08:30)
[2023-04-09] MEDS: GABAPENTIN 400MG CAP PO SCH (08:30)
[2023-04-09] MEDS: ASPIRIN 81MG ENTERIC TABLET PO SCH (08:30)
[2023-04-09] MEDS: PANTOPRAZOLE 40MG TAB (PROTONIX) PO SCH (08:30)
[2023-04-09] MEDS: FLUoxetine 20MG CAP PO SCH (08:30)
[2023-04-09] MEDS: NICOTINE 14 MG/24 HR TRANSDERMAL TD SCH (08:30)
[2023-04-09] MEDS: DULoxetine 30MG CAPSULE (CYMBALTA) PO SCH ×2 (08:31→20:50)
[2023-04-09] MEDS: LACTOBACILLUS ACIDOPHILUS CAP (BACID) PO SCH (17:16)
[2023-04-09] MEDS: BACLOFEN 10 MG TAB PO SCH (20:50)
[2023-04-09] MEDS: GABAPENTIN 300 MG CAP PO SCH (20:50)
[2023-04-09] MEDS: NORCO, ANEXSIA 5/325MG TABLET (HYDROcodone/ACETAMINOPHEN) PO PRN (20:57)
[2023-04-10] VITALS (7 sets, daily range): BP systolic 101–123; BP diastolic 63–80; TEMP 96–97.8; O2SAT 93–98
[2023-04-10] MEDS ORDERED: CARVedilol 3.125 MG TAB PO ONE (01:40)
[2023-04-10] MEDS: PIPERACILLIN/TAZOBACTAM SOD 3.375 GM in D5W MINI-BAG PLUS 50 ML IV SCH ×4 (02:13→22:00)
[2023-04-10] MEDS: NORCO, ANEXSIA 5/325MG TABLET (HYDROcodone/ACETAMINOPHEN) PO PRN ×2 (04:47→21:48)
[2023-04-10] MEDS: HYDROmorphone HCL 2MG/ML 1ML VIAL IV PRN (06:01)
[2023-04-10 06:03] LABS: BASO % 0.2 % (0.0-1.0); EOS # 0.6 10^3/uL (0.0-0.5); EOS % 6.4 % (0.0-3.0); HEMATOCRIT 33.4 % (42.0-52.0); HEMOGLOBIN 10.2 g/dl (13.5-17.5); LYMPH # 1.9 10^3/uL (1.5-5.0); LYMPH % 21.5 % (24.0-44.0); MEAN CORPUSCULAR HEMOGLOBIN 23.8 pg (27.0-33.0); MEAN CORPUSCULAR HGB CONC 30.5 g/dl (32.0-36.5); MONO # 0.7 10^3/uL (0.0-0.8); MONO % 7.6 % (2.0-8.0); NEUTROPHILS # 5.7 10^3/uL (1.5-8.5); PLATELET COUNT, AUTOMATED 305 10^3/uL (150-450); RED BLOOD COUNT 4.28 10^6/uL (4.30-6.10); WHITE BLOOD COUNT 8.9 10^3/uL (4.0-10.0)
[2023-04-10 06:29] LABS: BLOOD UREA NITROGEN 10 MG/DL (9-23); CALCIUM LEVEL 8.3 MG/DL (8.5-10.1); CARBON DIOXIDE LEVEL 26 MMOL/L (20-31); CHLORIDE LEVEL 105 MMOL/L (98-107); CREATININE FOR GFR 0.88 MG/DL (0.70-1.30); GLOMERULAR FILTRATION RATE > 60.0 (>56); GLUCOSE, FASTING 91 MG/DL (60-100); MAGNESIUM LEVEL 1.8 MG/DL (1.8-2.4); POTASSIUM SERUM 4.1 MMOL/L (3.5-5.1); SODIUM LEVEL 137 MMOL/L (136-145)
[2023-04-10] MEDS: ATORVASTATIN 20 MG TAB PO SCH (09:00)
[2023-04-10] MEDS: GABAPENTIN 400MG CAP PO SCH (09:01)
[2023-04-10] MEDS: EZETIMIBE 10MG TABLET (ZETIA) PO SCH (09:01)
[2023-04-10] MEDS: DULoxetine 30MG CAPSULE (CYMBALTA) PO SCH ×2 (09:01→21:47)
[2023-04-10] MEDS: LACTOBACILLUS ACIDOPHILUS CAP (BACID) PO SCH (09:01)
[2023-04-10] MEDS: ASPIRIN 81MG ENTERIC TABLET PO SCH (09:01)
[2023-04-10] MEDS: FLUoxetine 20MG CAP PO SCH (09:01)
[2023-04-10] MEDS: NICOTINE 14 MG/24 HR TRANSDERMAL TD SCH (09:02)
[2023-04-10] MEDS: PANTOPRAZOLE 40MG TAB (PROTONIX) PO SCH (09:03)
[2023-04-10] MEDS ORDERED: HYDROmorphone 4MG TABLET PO PRN (12:05)
[2023-04-10] MEDS ORDERED: VANCOMYCIN HCL 1,000 MG, VIAL MATE ADAPTER 1 EACH in D5W 250 ML IV ONE ×2 (19:00→20:00)
[2023-04-10] MEDS: BACLOFEN 10 MG TAB PO SCH (21:47)
[2023-04-10] MEDS: GABAPENTIN 300 MG CAP PO SCH (21:47)
[2023-04-11] VITALS (20 sets, daily range): BP systolic 112–142; BP diastolic 75–91; TEMP 96.5–97.7; O2SAT 91–98
[2023-04-11] MEDS: PIPERACILLIN/TAZOBACTAM SOD 3.375 GM in D5W MINI-BAG PLUS 50 ML IV SCH ×2 (03:08→09:51)
[2023-04-11] MEDS: VANCOMYCIN HCL 750 MG, VIAL MATE ADAPTER 1 EACH in D5W 250 ML IV SCH ×3 (03:38→21:52)
[2023-04-11] MEDS: NORCO, ANEXSIA 5/325MG TABLET (HYDROcodone/ACETAMINOPHEN) PO PRN ×3 (06:00→20:15)
[2023-04-11 06:23] LABS: BASO % 0.3 % (0.0-1.0); EOS # 0.6 10^3/uL (0.0-0.5); EOS % 6.9 % (0.0-3.0); HEMATOCRIT 31.2 % (42.0-52.0); HEMOGLOBIN 9.6 g/dl (13.5-17.5); LYMPH % 22.8 % (24.0-44.0); MEAN CORPUSCULAR HEMOGLOBIN 23.8 pg (27.0-33.0); MEAN CORPUSCULAR HGB CONC 30.8 g/dl (32.0-36.5); MEAN CORPUSCULAR VOLUME 77.4 fl (80.0-96.0); MONO # 0.8 10^3/uL (0.0-0.8); MONO % 9.6 % (2.0-8.0); NEUTROPHILS # 5.2 10^3/uL (1.5-8.5); NEUTROPHILS % 60.1 % (36.0-66.0); PLATELET COUNT, AUTOMATED 303 10^3/uL (150-450); RED BLOOD COUNT 4.03 10^6/uL (4.30-6.10); WHITE BLOOD COUNT 8.7 10^3/uL (4.0-10.0)
[2023-04-11 06:46] LABS: BLOOD UREA NITROGEN 11 MG/DL (9-23); CALCIUM LEVEL 8.3 MG/DL (8.5-10.1); CARBON DIOXIDE LEVEL 26 MMOL/L (20-31); CHLORIDE LEVEL 108 MMOL/L (98-107); CREATININE FOR GFR 0.86 MG/DL (0.70-1.30); GLOMERULAR FILTRATION RATE > 60.0 (>56); GLUCOSE, FASTING 66 MG/DL (60-100); MAGNESIUM LEVEL 1.6 MG/DL (1.8-2.4); POTASSIUM SERUM 4.2 MMOL/L (3.5-5.1); SODIUM LEVEL 141 MMOL/L (136-145)
[2023-04-11] MEDS: HYDROmorphone HCL 2MG/ML 1ML VIAL IV PRN ×4 (08:41→18:18)
[2023-04-11] MEDS: MAG SULF 1GM/100ML (MAG RUN) 1 GM in IV 1 EA IV SCH ×2 (08:41→11:16)
[2023-04-11] MEDS: NICOTINE 14 MG/24 HR TRANSDERMAL TD SCH (09:50)
[2023-04-11] MEDS: EZETIMIBE 10MG TABLET (ZETIA) PO SCH (09:51)
[2023-04-11] MEDS: FLUoxetine 20MG CAP PO SCH (09:51)
[2023-04-11] MEDS: LACTOBACILLUS ACIDOPHILUS CAP (BACID) PO SCH (09:51)
[2023-04-11] MEDS: DULoxetine 30MG CAPSULE (CYMBALTA) PO SCH ×2 (09:51→21:52)
[2023-04-11] MEDS: PANTOPRAZOLE 40MG TAB (PROTONIX) PO SCH (09:51)
[2023-04-11] MEDS: ASPIRIN 81MG ENTERIC TABLET PO SCH (09:51)
[2023-04-11] MEDS: ATORVASTATIN 20 MG TAB PO SCH (09:52)
[2023-04-11] MEDS: GABAPENTIN 400MG CAP PO SCH (09:52)
[2023-04-11] MEDS ORDERED: SODIUM CHLORIDE 0.9% INJ 10 ML SYR IV PRN (15:50)
[2023-04-11] MEDS: SODIUM CHLORIDE 0.9% INJ 10 ML SYR IV SCH (18:18)
[2023-04-11] MEDS: BACLOFEN 10 MG TAB PO SCH (21:51)
[2023-04-11] MEDS: GABAPENTIN 300 MG CAP PO SCH (21:52)
[2023-04-12] VITALS (9 sets, daily range): BP systolic 142–149; BP diastolic 79–82; TEMP 96.5–97.3; O2SAT 96–99
[2023-04-12] MEDS: HYDROmorphone HCL 2MG/ML 1ML VIAL IV PRN ×3 (02:45→09:14)
[2023-04-12] MEDS: VANCOMYCIN HCL 750 MG, VIAL MATE ADAPTER 1 EACH in D5W 250 ML IV SCH (04:51)
[2023-04-12] MEDS: SODIUM CHLORIDE 0.9% INJ 10 ML SYR IV SCH (05:49)
[2023-04-12 06:31] LABS: BASO % 0.4 % (0.0-1.0); EOS # 0.6 10^3/uL (0.0-0.5); EOS % 5.7 % (0.0-3.0); HEMATOCRIT 32.8 % (42.0-52.0); LYMPH # 1.9 10^3/uL (1.5-5.0); MEAN CORPUSCULAR HEMOGLOBIN 23.8 pg (27.0-33.0); MEAN CORPUSCULAR HGB CONC 30.5 g/dl (32.0-36.5); MEAN CORPUSCULAR VOLUME 78.1 fl (80.0-96.0); MONO # 0.8 10^3/uL (0.0-0.8); MONO % 8.5 % (2.0-8.0); NEUTROPHILS # 6.4 10^3/uL (1.5-8.5); NEUTROPHILS % 65.9 % (36.0-66.0); PLATELET COUNT, AUTOMATED 302 10^3/uL (150-450); WHITE BLOOD COUNT 9.8 10^3/uL (4.0-10.0)
[2023-04-12 06:56] LABS: BLOOD UREA NITROGEN 9 MG/DL (9-23); CALCIUM LEVEL 7.9 MG/DL (8.5-10.1); CARBON DIOXIDE LEVEL 25 MMOL/L (20-31); CHLORIDE LEVEL 104 MMOL/L (98-107); GLOMERULAR FILTRATION RATE > 60.0 (>56); GLUCOSE, FASTING 130 MG/DL (60-100); MAGNESIUM LEVEL 1.5 MG/DL (1.8-2.4); POTASSIUM SERUM 3.7 MMOL/L (3.5-5.1); SODIUM LEVEL 137 MMOL/L (136-145)
[2023-04-12] MEDS: EZETIMIBE 10MG TABLET (ZETIA) PO SCH (09:12)
[2023-04-12] MEDS: ATORVASTATIN 20 MG TAB PO SCH (09:12)
[2023-04-12] MEDS: DULoxetine 30MG CAPSULE (CYMBALTA) PO SCH (09:13)
[2023-04-12] MEDS: GABAPENTIN 400MG CAP PO SCH (09:13)
[2023-04-12] MEDS: LACTOBACILLUS ACIDOPHILUS CAP (BACID) PO SCH (09:13)
[2023-04-12] MEDS: FLUoxetine 20MG CAP PO SCH (09:13)
[2023-04-12] MEDS: ASPIRIN 81MG ENTERIC TABLET PO SCH (09:13)
[2023-04-12] MEDS: NICOTINE 14 MG/24 HR TRANSDERMAL TD SCH (09:14)
[2023-04-12] MEDS: PANTOPRAZOLE 40MG TAB (PROTONIX) PO SCH (09:16)
== END 2023-04-12 12:59 | disposition short-term general hospital (02) | DRG 856 ==
LOC: M ED 11:06 → M ED INP 19:49 → M MSPAV 22:19 → M PCU 04-08 11:49
PROVIDERS: ADMIT Internal Medicine; ATTEND Internal Medicine
PROC: 0W9F30Z Drainage of Abdominal Wall with Drainage Device, Percutaneous Approach (ICD-10-PCS; 2023-04-05)
PROC: 0WBF0ZZ Excision of Abdominal Wall, Open Approach (ICD-10-PCS; principal; 2023-04-06)
PROC: 05HA33Z Insertion of Infusion Device into Left Brachial Vein, Percutaneous Approach (ICD-10-PCS; 2023-04-11)
DX: T81.43XA Infection following a procedure, organ and space surgical site, initial encounter (principal); K65.1 Peritoneal abscess; K63.2 Fistula of intestine; G90.511 Complex regional pain syndrome I of right upper limb; I25.10 Atherosclerotic heart disease of native coronary artery without angina pectoris; J45.909 Unspecified asthma, uncomplicated; K21.9 Gastro-esophageal reflux disease without esophagitis; E66.9 Obesity, unspecified; K80.50 Calculus of bile duct without cholangitis or cholecystitis without obstruction; Z88.6 Allergy status to analgesic agent; Z79.899 Other long term (current) drug therapy; Z88.8 Allergy status to other drugs, medicaments and biological substances; Z95.2 Presence of prosthetic heart valve; F12.90 Cannabis use, unspecified, uncomplicated; F17.210 Nicotine dependence, cigarettes, uncomplicated; D50.9 Iron deficiency anemia, unspecified; F41.9 Anxiety disorder, unspecified; F32.A Depression, unspecified; Y83.3 Surgical operation with formation of external stoma as the cause of abnormal reaction of the patient, or of later complication, without mention of misadventure at the time of the procedure

== ENCOUNTER → 2023-05-21 | Outpatient (REF) | payer MEDICARE, MEDICAID ==
[~2023-05-21] MED LIST changes: +ASPI-161 PO; +EZET10TA21 PO; +FERR5MLUD PO; +NITR4TASL SL; +ONDA8TAB8 PO
[2023-05-21 15:19] LABS: HEMATOCRIT 35.2 % (42.0-52.0); HEMOGLOBIN 10.8 g/dl (13.5-17.5); MEAN CORPUSCULAR HEMOGLOBIN 24.7 pg (27.0-33.0); MEAN CORPUSCULAR HGB CONC 30.7 g/dl (32.0-36.5); MEAN CORPUSCULAR VOLUME 80.5 fl (80.0-96.0); PLATELET COUNT, AUTOMATED 358 10^3/uL (150-450); RED BLOOD COUNT 4.37 10^6/uL (4.30-6.10); WHITE BLOOD COUNT 10.2 10^3/uL (4.0-10.0)
[2023-05-21 15:49] LABS: ALBUMIN 2.6 G/DL (3.2-5.2); ALKALINE PHOSPHATASE 56 U/L (46-116); ALT/SGPT 18 U/L (7.0-40); AST/SGOT 17 U/L (<34); BILIRUBIN,TOTAL 0.3 MG/DL (0.3-1.2); BLOOD UREA NITROGEN 17 MG/DL (9-23); CALCIUM LEVEL 8.4 MG/DL (8.5-10.1); CARBON DIOXIDE LEVEL 29 MMOL/L (20-31); CHLORIDE LEVEL 106 MMOL/L (98-107); CREATININE FOR GFR 0.89 MG/DL (0.70-1.30); GLOMERULAR FILTRATION RATE > 60.0 (>56); GLUCOSE, FASTING 84 MG/DL (60-100); POTASSIUM SERUM 4.2 MMOL/L (3.5-5.1); SODIUM LEVEL 141 MMOL/L (136-145); TOTAL PROTEIN 6.5 G/DL (5.7-8.2)
[2023-05-21 15:56] LABS: ERYTHROCYTE SEDIMENTATION RATE 65 mm/hr (0-20)
== END ==
LOC: M SHH 14:25
PROVIDERS: ATTEND Internal Medicine Infectious Disease
DX: K65.9 Peritonitis, unspecified (principal); I10 Essential (primary) hypertension; G90.511 Complex regional pain syndrome I of right upper limb

== ENCOUNTER → 2023-05-28 | Outpatient (REF) | payer MEDICARE, MEDICAID ==
[2023-05-28 13:10] LABS: HEMATOCRIT 33.9 % (42.0-52.0); HEMOGLOBIN 10.5 g/dl (13.5-17.5); MEAN CORPUSCULAR VOLUME 80.7 fl (80.0-96.0); PLATELET COUNT, AUTOMATED 249 10^3/uL (150-450); WHITE BLOOD COUNT 6.7 10^3/uL (4.0-10.0)
[2023-05-28 13:44] LABS: ALBUMIN 2.5 G/DL (3.2-5.2); ALKALINE PHOSPHATASE 59 U/L (46-116); ALT/SGPT 14 U/L (7.0-40); AST/SGOT 19 U/L (<34); BILIRUBIN,TOTAL 0.2 MG/DL (0.3-1.2); BLOOD UREA NITROGEN 17 MG/DL (9-23); CALCIUM LEVEL 7.9 MG/DL (8.5-10.1); CARBON DIOXIDE LEVEL 30 MMOL/L (20-31); CHLORIDE LEVEL 107 MMOL/L (98-107); CREATININE FOR GFR 1.04 MG/DL (0.70-1.30); GLOMERULAR FILTRATION RATE > 60.0 (>56); GLUCOSE, FASTING 86 MG/DL (60-100); POTASSIUM SERUM 4.3 MMOL/L (3.5-5.1); SODIUM LEVEL 141 MMOL/L (136-145); TOTAL PROTEIN 6.3 G/DL (5.7-8.2)
[2023-05-28 15:22] LABS: ERYTHROCYTE SEDIMENTATION RATE 46 mm/hr (0-20)
== END ==
LOC: M SHH 11:26
PROVIDERS: ATTEND Internal Medicine Infectious Disease
DX: I10 Essential (primary) hypertension (principal)

== ENCOUNTER → 2023-05-28 | Outpatient (REF) | payer MEDICARE, MEDICAID ==
[2023-05-28 13:30] LABS: HEMOGLOBIN A1c 5.1 % (4.0-6.0)
[2023-05-28 13:46] LABS: PERCENT SATURATION 7.2 % (19.7-50.0)
== END ==
LOC: M SHH 11:29
PROVIDERS: ATTEND Family Medicine
DX: Z12.5 Encounter for screening for malignant neoplasm of prostate (principal); R73.01 Impaired fasting glucose; D50.9 Iron deficiency anemia, unspecified
CPT/HCPCS: 83036; 83550; G0103

== ENCOUNTER → 2023-06-04 | Outpatient (REF) | payer MEDICARE, MEDICAID ==
[2023-06-04 14:11] LABS: HEMATOCRIT 33.6 % (42.0-52.0); HEMOGLOBIN 10.3 g/dl (13.5-17.5); MEAN CORPUSCULAR HEMOGLOBIN 24.8 pg (27.0-33.0); MEAN CORPUSCULAR HGB CONC 30.7 g/dl (32.0-36.5); PLATELET COUNT, AUTOMATED 238 10^3/uL (150-450); RED BLOOD COUNT 4.15 10^6/uL (4.30-6.10); WHITE BLOOD COUNT 5.6 10^3/uL (4.0-10.0)
[2023-06-04 14:35] LABS: ALBUMIN 2.8 G/DL (3.2-5.2); ALKALINE PHOSPHATASE 57 U/L (46-116); ALT/SGPT 13 U/L (7.0-40); AST/SGOT 19 U/L (<34); BILIRUBIN,TOTAL 0.4 MG/DL (0.3-1.2); BLOOD UREA NITROGEN 15 MG/DL (9-23); CALCIUM LEVEL 8.3 MG/DL (8.5-10.1); CARBON DIOXIDE LEVEL 28 MMOL/L (20-31); CHLORIDE LEVEL 105 MMOL/L (98-107); CREATININE FOR GFR 0.96 MG/DL (0.70-1.30); GLOMERULAR FILTRATION RATE > 60.0 (>56); GLUCOSE, FASTING 55 MG/DL (60-100); POTASSIUM SERUM 4.1 MMOL/L (3.5-5.1); SODIUM LEVEL 140 MMOL/L (136-145); TOTAL PROTEIN 6.7 G/DL (5.7-8.2)
[2023-06-04 14:52] LABS: ERYTHROCYTE SEDIMENTATION RATE 62 mm/hr (0-20)
== END ==
LOC: M SHH 13:20
PROVIDERS: ATTEND Internal Medicine Infectious Disease
DX: K65.9 Peritonitis, unspecified (principal)

== ENCOUNTER → 2023-06-10 | Outpatient (CLI) | payer MEDICARE, MEDICAID ==
[~2023-06-10] MED LIST changes: +GASTROGRAFIN SOLUTION 30ML As Ordered ONE; +ISOVUE-370 76% 100ML VIAL As Ordered ONE
== END ==
LOC: M RAD 08:18
DX: L02.211 Cutaneous abscess of abdominal wall (principal); N28.1 Cyst of kidney, acquired
CPT/HCPCS: 74177; Q9963; Q9967

== ENCOUNTER → 2023-08-30 | Outpatient (REF) | payer MEDICARE, MEDICAID ==
[~2023-08-30] MED LIST changes: -GASTROGRAFIN SOLUTION 30ML As Ordered ONE; -ISOVUE-370 76% 100ML VIAL As Ordered ONE
[2023-08-30 17:43] LABS: HEMATOCRIT 38.6 % (42.0-52.0); MEAN CORPUSCULAR HEMOGLOBIN 23.8 pg (27.0-33.0); MEAN CORPUSCULAR HGB CONC 31.1 g/dl (32.0-36.5); MEAN CORPUSCULAR VOLUME 76.4 fl (80.0-96.0); PLATELET COUNT, AUTOMATED 192 10^3/uL (150-450); RED BLOOD COUNT 5.05 10^6/uL (4.30-6.10)
[2023-08-30 18:12] LABS: ALBUMIN 3.1 G/DL (3.2-5.2); ALKALINE PHOSPHATASE 66 U/L (46-116); ALT/SGPT 14 U/L (7.0-40); AST/SGOT 21 U/L (<34); BILIRUBIN,TOTAL 0.4 MG/DL (0.3-1.2); BLOOD UREA NITROGEN 17 MG/DL (9-23); CALCIUM LEVEL 8.5 MG/DL (8.5-10.1); CARBON DIOXIDE LEVEL 26 MMOL/L (20-31); CHLORIDE LEVEL 106 MMOL/L (98-107); CREATININE FOR GFR 0.94 MG/DL (0.70-1.30); GLOMERULAR FILTRATION RATE > 60.0 (>56); GLUCOSE, FASTING 77 MG/DL (60-100); IRON (FE) 28 UG/DL (65-175); PERCENT SATURATION 7.6 % (19.7-50.0); POTASSIUM SERUM 4.4 MMOL/L (3.5-5.1); SODIUM LEVEL 136 MMOL/L (136-145); TOTAL IRON BINDING CAPACITY 369 UG/DL (250-425); TOTAL PROTEIN 7.3 G/DL (5.7-8.2)
[2023-08-30 18:15] LABS: FERRITIN 22.1 NG/ML (10.5-307.3)
== END ==
LOC: M SFHCCLAY 13:58
PROVIDERS: ATTEND Family Medicine
DX: D50.9 Iron deficiency anemia, unspecified (principal); E78.2 Mixed hyperlipidemia

== ENCOUNTER 2023-10-17 15:19 | Inpatient (IN) | payer MEDICARE, MEDICAID ==
[~2023-10-17] VITALS: Ht 154.3 cm; Wt 111.8 kg
[~2023-10-17 15:19] MED LIST changes: -ASPI-161 PO; +ASPI-615 PO
[2023-10-17 16:03] LABS: BASO % 0.2 % (0.0-1.0); EOS % 0.1 % (0.0-3.0); HEMATOCRIT 35.5 % (42.0-52.0); HEMOGLOBIN 11.7 g/dl (13.5-17.5); LYMPH % 5.9 % (24.0-44.0); MEAN CORPUSCULAR HEMOGLOBIN 24.3 pg (27.0-33.0); MEAN CORPUSCULAR VOLUME 73.8 fl (80.0-96.0); MONO # 0.7 10^3/uL (0.0-0.8); MONO % 4.2 % (2.0-8.0); NEUTROPHILS # 15.4 10^3/uL (1.5-8.5); NEUTROPHILS % 89.2 % (36.0-66.0); PLATELET COUNT, AUTOMATED 344 10^3/uL (150-450); RED BLOOD COUNT 4.81 10^6/uL (4.30-6.10); WHITE BLOOD COUNT 17.3 10^3/uL (4.0-10.0)
[2023-10-17] MEDS: ASPIRIN 81MG CHEW TABLET PO ONE (16:19)
[2023-10-17] MEDS: NS 500 ML IV ONE (16:19)
[2023-10-17 16:20] VITALS: BP 118/70
[2023-10-17] MEDS: NITROGLYCERIN 0.4MG SUBL TABLET SL PRN (16:20)
[2023-10-17 16:27] LABS: LIPASE 23 U/L (12-53)
[2023-10-17 16:29] LABS: CPK CREATINE PHOSPHOKINASE 312 U/L (46-171)
[2023-10-17 16:30] LABS: ALBUMIN 2.9 G/DL (3.2-5.2); ALKALINE PHOSPHATASE 62 U/L (46-116); ALT/SGPT 13 U/L (7.0-40); AST/SGOT 33 U/L (<34); BILIRUBIN,DIRECT 0.3 MG/DL (<0.4); BILIRUBIN,TOTAL 0.6 MG/DL (0.3-1.2); BLOOD UREA NITROGEN 14 MG/DL (9-23); CALCIUM LEVEL 8.2 MG/DL (8.5-10.1); CARBON DIOXIDE LEVEL 24 MMOL/L (20-31); CHLORIDE LEVEL 99 MMOL/L (98-107); CK-MB VALUE MASS 3.2 NG/ML (<3.6); CREATININE FOR GFR 0.88 MG/DL (0.70-1.30); GLOMERULAR FILTRATION RATE > 60.0 (>56); GLUCOSE, FASTING 134 MG/DL (60-100); MB/CK RELATIVE INDEX 1.02 (< OR =4); POTASSIUM SERUM 3.6 MMOL/L (3.5-5.1); SODIUM LEVEL 131 MMOL/L (136-145); TOTAL PROTEIN 7.5 G/DL (5.7-8.2)
[2023-10-17] MEDS: PIPERACILLIN/TAZOBACTAM SOD 4.5 GM in D5W MINI-BAG PLUS 50 ML IV ONE (16:50)
[2023-10-17] MEDS ORDERED: ISOVUE-370 76% 100ML VIAL As Ordered ONE (16:59)
[2023-10-17] MEDS: GASTROGRAFIN SOLUTION 30ML PO SCH (17:29)
[2023-10-17 17:30] LABS: CK-MB VALUE MASS 2.4 NG/ML (<3.6)
[2023-10-17 17:33] LABS: MB/CK RELATIVE INDEX 0.8 (< OR =4)
[2023-10-17 19:41] LABS: CK-MB VALUE MASS 2.1 NG/ML (<3.6)
[2023-10-17 19:42] LABS: MB/CK RELATIVE INDEX 0.79 (< OR =4)
[2023-10-17] MEDS: MIRALAX *UNIT DOSE* 17GM PACKET PO SCH (21:00)
[2023-10-17] MEDS: BACLOFEN 10 MG TAB PO SCH (21:00)
[2023-10-17] MEDS ORDERED: PERC10TA26 PO (23:08)
[2023-10-17] MEDS ORDERED: POTA-151 PO (23:08)
[2023-10-17] MEDS ORDERED: FLUO20CA22 PO (23:08)
[2023-10-17] MEDS ORDERED: FURO20TA2 PO (23:08)
[2023-10-17] MEDS ORDERED: HOME MED LIST COMPLETE! XX SCH (23:10)
[2023-10-17] MEDS ORDERED: ALBUTEROL SULFATE 2.5MG/0.5ML INH NEB SOLN NEB PRN (23:30)
[2023-10-17] MEDS: NS 1,000 ML IV SCH (23:47)
[2023-10-18] VITALS (7 sets, daily range): BP systolic 124–133; BP diastolic 73–78; TEMP 97.7–98.8; O2SAT 87–95
[2023-10-18] MEDS: PIPERACILLIN/TAZOBACTAM SOD 4.5 GM in D5W MINI-BAG PLUS 50 ML IV SCH (00:32)
[2023-10-18] MEDS: oxyCODONE 5MG TAB PO PRN (01:16)
[2023-10-18] MEDS: IPRATROPIUM 0.5MG/ALBUTEROL 2.5MG INH SOL UD 3ML (DUONEB) NEB SCH (01:37)
[2023-10-18] MEDS: GABAPENTIN 300 MG CAP PO SCH ×2 (01:49→11:54)
[2023-10-18] MEDS ORDERED: SENNA 8.6 MG TAB (SENOKOT) PO PRN (01:50)
[2023-10-18] MEDS ORDERED: HYDROmorphone 4MG TABLET PO PRN (04:50)
[2023-10-18 06:58] LABS: HEMATOCRIT 34.5 % (42.0-52.0); HEMOGLOBIN 10.5 g/dl (13.5-17.5); MEAN CORPUSCULAR HEMOGLOBIN 24.2 pg (27.0-33.0); MEAN CORPUSCULAR HGB CONC 30.4 g/dl (32.0-36.5); MEAN CORPUSCULAR VOLUME 79.5 fl (80.0-96.0); PLATELET COUNT, AUTOMATED 293 10^3/uL (150-450); RED BLOOD COUNT 4.34 10^6/uL (4.30-6.10); WHITE BLOOD COUNT 9.2 10^3/uL (4.0-10.0)
[2023-10-18 07:17] LABS: PROCALCITONIN 0.25 ng/ml
[2023-10-18 07:21] LABS: ALBUMIN 2.3 G/DL (3.2-5.2); ALKALINE PHOSPHATASE 56 U/L (46-116); ALT/SGPT 13 U/L (7.0-40); AST/SGOT 31 U/L (<34); BILIRUBIN,TOTAL 0.5 MG/DL (0.3-1.2); BLOOD UREA NITROGEN 9 MG/DL (9-23); CALCIUM LEVEL 7.8 MG/DL (8.5-10.1); CARBON DIOXIDE LEVEL 24 MMOL/L (20-31); CHLORIDE LEVEL 107 MMOL/L (98-107); CREATININE FOR GFR 0.89 MG/DL (0.70-1.30); GLOMERULAR FILTRATION RATE > 60.0 (>56); GLUCOSE, FASTING 98 MG/DL (60-100); POTASSIUM SERUM 3.6 MMOL/L (3.5-5.1); SODIUM LEVEL 137 MMOL/L (136-145); TOTAL PROTEIN 6.2 G/DL (5.7-8.2)
[2023-10-18] MEDS: HEPARIN SOD (PORCINE) 5000UNITS/ML 1ML VIAL/SYRINGE SC SCH (09:55)
[2023-10-18] MEDS: EZETIMIBE 10MG TABLET (ZETIA) PO SCH (09:56)
[2023-10-18] MEDS: PANTOPRAZOLE 40MG TAB (PROTONIX) PO SCH (09:56)
[2023-10-18] MEDS: MAGNESIUM OXIDE 400MG TAB (MAG-OX) PO SCH (09:56)
[2023-10-18] MEDS: ASPIRIN 81MG ENTERIC TABLET PO SCH (09:56)
[2023-10-18] MEDS: ATORVASTATIN 20 MG TAB PO SCH (09:56)
[2023-10-18] MEDS: DULoxetine 30MG CAPSULE (CYMBALTA) PO SCH (09:56)
[2023-10-18] MEDS: FUROSEMIDE 20 MG TAB PO SCH (09:56)
[2023-10-18] MEDS ORDERED: DOXYCYCLINE HYCLATE 100 MG in D5W MINI-BAG PLUS 100 ML IV SCH (10:35)
[2023-10-18] MEDS: cefTRIAXone SOD 1 GM in D5W MINI-BAG PLUS 50 ML IV SCH (11:52)
[2023-10-18] MEDS: FLUoxetine 20MG CAP PO SCH ×2 (11:53)
[2023-10-18] MEDS: guaiFENesin ER TABLET 600 MG TAB PO SCH (11:54)
[2023-10-18] MEDS: methylPREDNISolone 40MG 1ML VIAL IV SCH (11:54)
[2023-10-18] MEDS: DOXYCYCLINE HYCLATE 100MG TABLET PO SCH (11:54)
[2023-10-18] MEDS: FUROSEMIDE 20MG/2ML VIAL IV STA (18:25)
[2023-10-19 01:10] VITALS: O2SAT 94
[2023-10-19 01:30] VITALS: BP 112/72; TEMP 97.9; O2SAT 97
[2023-10-19 04:50] VITALS: BP 140/81; TEMP 98.6; O2SAT 95
[2023-10-19 06:02] LABS: BASO % 0.1 % (0.0-1.0); EOS % 0.1 % (0.0-3.0); HEMATOCRIT 35.9 % (42.0-52.0); HEMOGLOBIN 11.3 g/dl (13.5-17.5); LYMPH # 0.4 10^3/uL (1.5-5.0); LYMPH % 2.5 % (24.0-44.0); MEAN CORPUSCULAR HEMOGLOBIN 24.1 pg (27.0-33.0); MEAN CORPUSCULAR HGB CONC 31.5 g/dl (32.0-36.5); MEAN CORPUSCULAR VOLUME 76.7 fl (80.0-96.0); MONO # 0.1 10^3/uL (0.0-0.8); MONO % 0.8 % (2.0-8.0); NEUTROPHILS # 15.9 10^3/uL (1.5-8.5); NEUTROPHILS % 96.1 % (36.0-66.0); PLATELET COUNT, AUTOMATED 344 10^3/uL (150-450); RED BLOOD COUNT 4.68 10^6/uL (4.30-6.10); WHITE BLOOD COUNT 16.5 10^3/uL (4.0-10.0)
[2023-10-19 06:27] LABS: BLOOD UREA NITROGEN 13 MG/DL (9-23); CALCIUM LEVEL 7.9 MG/DL (8.5-10.1); CARBON DIOXIDE LEVEL 20 MMOL/L (20-31); CHLORIDE LEVEL 111 MMOL/L (98-107); CREATININE FOR GFR 0.76 MG/DL (0.70-1.30); GLOMERULAR FILTRATION RATE > 60.0 (>56); GLUCOSE, FASTING 154 MG/DL (60-100); MAGNESIUM LEVEL 1.5 MG/DL (1.8-2.4); POTASSIUM SERUM 4.4 MMOL/L (3.5-5.1); SODIUM LEVEL 139 MMOL/L (136-145)
[2023-10-19] MEDS: FUROSEMIDE 40MG/4ML VIAL IV ONE (07:39)
[2023-10-19] MEDS: MAG SULF 1GM/100ML (MAG RUN) 1 GM in IV 1 EA IV SCH (08:28)
[2023-10-19] MEDS ORDERED: NITROGLYCERIN 0.4MG SUBL TABLET SL PRN (10:00)
[2023-10-19 10:05] VITALS: BP 136/84; TEMP 98.1; O2SAT 94
[2023-10-19] MEDS: NICOTINE 21MG/24HR 1 EA TRANSDERMAL TD SCH (12:30)
[2023-10-19 13:59] VITALS: BP 130/56; TEMP 98.7; O2SAT 94
[2023-10-19] MEDS: methylPREDNISolone 40MG 1ML VIAL IV SCH (14:39)
[2023-10-19] MEDS: ACETAMINOPHEN 325 MG TAB PO PRN (19:21)
[2023-10-19 20:00] VITALS: BP 114/65; TEMP 98.4; O2SAT 94
[2023-10-20] VITALS (7 sets, daily range): BP systolic 115–131; BP diastolic 64–82; TEMP 97.7–98.6; O2SAT 90–99
[2023-10-20 05:57] LABS: BASO % 0.1 % (0.0-1.0); EOS % 0.1 % (0.0-3.0); HEMATOCRIT 36.2 % (42.0-52.0); HEMOGLOBIN 11.4 g/dl (13.5-17.5); LYMPH # 0.6 10^3/uL (1.5-5.0); MEAN CORPUSCULAR HEMOGLOBIN 24.3 pg (27.0-33.0); MEAN CORPUSCULAR HGB CONC 31.5 g/dl (32.0-36.5); MONO # 0.5 10^3/uL (0.0-0.8); MONO % 2.4 % (2.0-8.0); NEUTROPHILS # 19.1 10^3/uL (1.5-8.5); NEUTROPHILS % 93.9 % (36.0-66.0); PLATELET COUNT, AUTOMATED 352 10^3/uL (150-450); WHITE BLOOD COUNT 20.4 10^3/uL (4.0-10.0)
[2023-10-20 06:16] LABS: BLOOD UREA NITROGEN 22 MG/DL (9-23); CALCIUM LEVEL 7.9 MG/DL (8.5-10.1); CARBON DIOXIDE LEVEL 25 MMOL/L (20-31); CHLORIDE LEVEL 106 MMOL/L (98-107); CREATININE FOR GFR 0.77 MG/DL (0.70-1.30); GLOMERULAR FILTRATION RATE > 60.0 (>56); GLUCOSE, FASTING 125 MG/DL (60-100); MAGNESIUM LEVEL 1.9 MG/DL (1.8-2.4); POTASSIUM SERUM 5.5 MMOL/L (3.5-5.1); SODIUM LEVEL 139 MMOL/L (136-145)
[2023-10-20 07:50] LABS: POTASSIUM SERUM 4.3 MMOL/L (3.5-5.1)
[2023-10-20] MEDS: MIRALAX *UNIT DOSE* 17GM PACKET PO PRN (10:55)
[2023-10-20 12:28] LABS: C REACTIVE PROTEIN QUANTITATIV 7.7 MG/DL (<1.0)
[2023-10-20] MEDS: FUROSEMIDE 40MG/4ML VIAL IV SCH (12:37)
[2023-10-20] MEDS: methylPREDNISolone 40MG 1ML VIAL IV SCH (13:49)
[2023-10-20] MEDS: DOCUSATE SODIUM 100MG CAPSULE PO PRN (20:10)
[2023-10-20] MEDS: ALPRAZolam 0.25 MG TAB PO ONE (22:47)
[2023-10-20] MEDS: NICOTINE 21MG/24HR 1 EA TRANSDERMAL TD ONE (22:47)
[2023-10-21] VITALS: BP 131/85; TEMP 98.1; O2SAT 93
[2023-10-21 04:19] VITALS: BP 93/54; TEMP 97.7; O2SAT 92
[2023-10-21 06:32] LABS: BASO % 0.1 % (0.0-1.0); EOS % 0.3 % (0.0-3.0); HEMATOCRIT 36.8 % (42.0-52.0); HEMOGLOBIN 11.6 g/dl (13.5-17.5); LYMPH # 0.7 10^3/uL (1.5-5.0); LYMPH % 5.8 % (24.0-44.0); MEAN CORPUSCULAR HEMOGLOBIN 24.1 pg (27.0-33.0); MEAN CORPUSCULAR HGB CONC 31.5 g/dl (32.0-36.5); MEAN CORPUSCULAR VOLUME 76.3 fl (80.0-96.0); MONO # 0.4 10^3/uL (0.0-0.8); MONO % 2.8 % (2.0-8.0); NEUTROPHILS # 11.2 10^3/uL (1.5-8.5); NEUTROPHILS % 90.5 % (36.0-66.0); PLATELET COUNT, AUTOMATED 435 10^3/uL (150-450); RED BLOOD COUNT 4.82 10^6/uL (4.30-6.10); WHITE BLOOD COUNT 12.4 10^3/uL (4.0-10.0)
[2023-10-21 06:40] LABS: BLOOD UREA NITROGEN 25 MG/DL (9-23); CALCIUM LEVEL 8.1 MG/DL (8.5-10.1); CARBON DIOXIDE LEVEL 27 MMOL/L (20-31); CHLORIDE LEVEL 106 MMOL/L (98-107); CREATININE FOR GFR 0.84 MG/DL (0.70-1.30); GLOMERULAR FILTRATION RATE > 60.0 (>56); GLUCOSE, FASTING 127 MG/DL (60-100); MAGNESIUM LEVEL 1.8 MG/DL (1.8-2.4); POTASSIUM SERUM 4.8 MMOL/L (3.5-5.1); SODIUM LEVEL 138 MMOL/L (136-145)
[2023-10-21 07:32] VITALS: BP 146/80
[2023-10-21 08:43] VITALS: O2SAT 95
[2023-10-21] MEDS ORDERED: DOXY100T PO (09:05)
[2023-10-21] MEDS ORDERED: PRED10TA2 PO (09:05)
[2023-10-21] MEDS ORDERED: CEFD1CAP9 PO (09:05)
== END 2023-10-21 10:28 | disposition home or self-care (01) | DRG 871 ==
LOC: M ED 15:19 → UNDOADMIN 22:16 → M ED INP 22:16 → ENRESERV 23:03 → M MSPAV 23:55
PROVIDERS: ADMIT Internal Medicine; ATTEND Internal Medicine
DX: A41.9 Sepsis, unspecified organism (principal); J96.01 Acute respiratory failure with hypoxia; J12.3 Human metapneumovirus pneumonia; J15.9 Unspecified bacterial pneumonia; Z68.42 Body mass index [BMI] 45.0-49.9, adult; I50.32 Chronic diastolic (congestive) heart failure; G90.511 Complex regional pain syndrome I of right upper limb; F41.8 Other specified anxiety disorders; I11.0 Hypertensive heart disease with heart failure; K59.00 Constipation, unspecified; E78.5 Hyperlipidemia, unspecified; I25.10 Atherosclerotic heart disease of native coronary artery without angina pectoris; K21.9 Gastro-esophageal reflux disease without esophagitis; F39 Unspecified mood [affective] disorder; J45.909 Unspecified asthma, uncomplicated; I95.1 Orthostatic hypotension; F17.200 Nicotine dependence, unspecified, uncomplicated; I25.2 Old myocardial infarction; Z95.2 Presence of prosthetic heart valve; I27.20 Pulmonary hypertension, unspecified; Z88.8 Allergy status to other drugs, medicaments and biological substances; Z79.899 Other long term (current) drug therapy; Z79.82 Long term (current) use of aspirin

== ENCOUNTER → 2023-11-29 | Outpatient (CLI) | payer MEDICARE, MEDICAID ==
[~2023-11-29] MED LIST changes: +CEFD1CAP9 PO; +DOXY100T PO; +FLUO20CA22 PO; +FURO20TA2 PO; +PERC10TA26 PO; +POTA-151 PO; +PRED10TA2 PO
[2023-11-29 18:45] LABS: HEMATOCRIT 37.9 % (42.0-52.0); HEMOGLOBIN 11.6 g/dl (13.5-17.5); MEAN CORPUSCULAR HEMOGLOBIN 23.5 pg (27.0-33.0); MEAN CORPUSCULAR HGB CONC 30.6 g/dl (32.0-36.5); MEAN CORPUSCULAR VOLUME 76.7 fl (80.0-96.0); PLATELET COUNT, AUTOMATED 340 10^3/uL (150-450); RED BLOOD COUNT 4.94 10^6/uL (4.30-6.10); WHITE BLOOD COUNT 9.7 10^3/uL (4.0-10.0)
[2023-11-29 19:05] LABS: ALBUMIN 2.9 G/DL (3.2-5.2); ALKALINE PHOSPHATASE 70 U/L (46-116); ALT/SGPT 15 U/L (7.0-40); AST/SGOT 24 U/L (<34); BILIRUBIN,TOTAL 0.4 MG/DL (0.3-1.2); BLOOD UREA NITROGEN 11 MG/DL (9-23); CALCIUM LEVEL 8.9 MG/DL (8.5-10.1); CARBON DIOXIDE LEVEL 26 MMOL/L (20-31); CHLORIDE LEVEL 103 MMOL/L (98-107); CREATININE FOR GFR 0.87 MG/DL (0.70-1.30); GLOMERULAR FILTRATION RATE > 60.0 (>56); GLUCOSE, FASTING 73 MG/DL (60-100); IRON (FE) 15 UG/DL (65-175); POTASSIUM SERUM 5.1 MMOL/L (3.5-5.1); SODIUM LEVEL 135 MMOL/L (136-145); TOTAL PROTEIN 6.6 G/DL (5.7-8.2)
== END ==
LOC: M CLY 14:54
PROVIDERS: ATTEND Family Medicine
DX: R06.02 Shortness of breath (principal); D50.8 Other iron deficiency anemias

== ENCOUNTER → 2023-12-05 | Outpatient (CLI) | payer MEDICARE, MEDICAID | LOC: M CLY 08:52 | PROVIDERS: ATTEND Family Medicine | DX: R06.02 Shortness of breath (principal) ==

== ENCOUNTER → 2024-03-10 | Outpatient (REF) | payer MEDICARE, MEDICAID ==
[~2024-03-10] MED LIST changes: +FLUO-365 PO; -FLUO20CA22 PO; +ONDA-284 PO; -ONDA8TAB8 PO; -ZOLP12.518 PO; +ZOLP12.535 PO
[2024-03-10 11:44] LABS: HEMATOCRIT 42.2 % (42.0-52.0); HEMOGLOBIN 13.5 g/dl (13.5-17.5); MEAN CORPUSCULAR HEMOGLOBIN 25.4 pg (27.0-33.0); MEAN CORPUSCULAR VOLUME 79.5 fl (80.0-96.0); PLATELET COUNT, AUTOMATED 290 10^3/uL (150-450); RED BLOOD COUNT 5.31 10^6/uL (4.30-6.10); WHITE BLOOD COUNT 10.5 10^3/uL (4.0-10.0)
[2024-03-10 12:16] LABS: IRON (FE) 36 UG/DL (65-175); PERCENT SATURATION 9.1 % (19.7-50.0); TOTAL IRON BINDING CAPACITY 397 UG/DL (250-425)
[2024-03-10 12:17] LABS: ALBUMIN 3.5 G/DL (3.2-5.2); ALKALINE PHOSPHATASE 67 U/L (46-116); ALT/SGPT 17 U/L (7.0-40); AST/SGOT 18 U/L (<34); BILIRUBIN,TOTAL 0.4 MG/DL (0.3-1.2); BLOOD UREA NITROGEN 17 MG/DL (9-23); CALCIUM LEVEL 9.2 MG/DL (8.5-10.1); CARBON DIOXIDE LEVEL 25 MMOL/L (20-31); CHLORIDE LEVEL 107 MMOL/L (98-107); CREATININE FOR GFR 0.97 MG/DL (0.70-1.30); GLOMERULAR FILTRATION RATE > 60.0 (>56); GLUCOSE, FASTING 84 MG/DL (60-100); POTASSIUM SERUM 4.6 MMOL/L (3.5-5.1); SODIUM LEVEL 138 MMOL/L (136-145); TOTAL PROTEIN 7.2 G/DL (5.7-8.2)
[2024-03-10 12:19] LABS: FERRITIN 11.3 NG/ML (10.5-307.3)
== END ==
LOC: M SFHCCLAY 09:17
PROVIDERS: ATTEND Family Medicine
DX: I10 Essential (primary) hypertension (principal); D50.9 Iron deficiency anemia, unspecified

== ENCOUNTER 2024-05-19 18:19 | Emergency (ER) | payer MEDICARE, MEDICAID ==
[~2024-05-19] VITALS: Ht 175.3 cm; Wt 107.9 kg
[~2024-05-19 18:19] MED LIST changes: +GABA-1172 PO; +GABA-1490 PO; -GABA-282 PO; -GABA600T4 PO
[2024-05-19 18:26] VITALS: BP 135/85; TEMP 97.6; O2SAT 96
[2024-05-19] MEDS: OXYMETAZOLINE 0.05% NASAL SPRAY (AFRIN) ONE (20:20)
[2024-05-19] MEDS: AUGMENTIN 875 MG TAB PO ONE (20:20)
[2024-05-19] MEDS ORDERED: AMOX875T2 PO (20:29)
[2024-05-19] MEDS ORDERED: FLON1SPR NARES (20:29)
[2024-05-19] MEDS ORDERED: CVS1CAP2 PO (20:30)
== END 2024-05-19 20:43 | disposition home or self-care (01) ==
LOC: M ED 18:19
DX: H72.01 Central perforation of tympanic membrane, right ear (principal); H92.01 Otalgia, right ear; I25.2 Old myocardial infarction; E78.5 Hyperlipidemia, unspecified; F17.210 Nicotine dependence, cigarettes, uncomplicated; Z88.8 Allergy status to other drugs, medicaments and biological substances; Z79.1 Long term (current) use of non-steroidal anti-inflammatories (NSAID); Z79.2 Long term (current) use of antibiotics; Z79.899 Other long term (current) drug therapy

== ENCOUNTER 2024-05-26 08:39 | Emergency (ER) | payer MEDICARE, MEDICAID ==
[~2024-05-26] VITALS: Ht 177.8 cm; Wt 107.7 kg
[~2024-05-26 08:39] MED LIST changes: +CVS1CAP2 PO; +FLON1SPR NARES
[2024-05-26] MEDS: dexAMETHasone 20MG/5ML VIAL IV ONE (09:25)
[2024-05-26] MEDS: IPRATROPIUM 0.5MG/ALBUTEROL 2.5MG INH SOL UD 3ML (DUONEB) NEB PRN (09:33)
[2024-05-26 09:37] LABS: BASO % 0.2 % (0.0-1.0); EOS % 0.3 % (0.0-3.0); HEMATOCRIT 40.5 % (42.0-52.0); HEMOGLOBIN 13.2 g/dl (13.5-17.5); LYMPH # 1.6 10^3/uL (1.5-5.0); LYMPH % 10.5 % (24.0-44.0); MEAN CORPUSCULAR HEMOGLOBIN 26.2 pg (27.0-33.0); MEAN CORPUSCULAR HGB CONC 32.6 g/dl (32.0-36.5); MEAN CORPUSCULAR VOLUME 80.5 fl (80.0-96.0); MONO # 0.6 10^3/uL (0.0-0.8); MONO % 3.8 % (2.0-8.0); NEUTROPHILS # 12.5 10^3/uL (1.5-8.5); NEUTROPHILS % 84.6 % (36.0-66.0); PLATELET COUNT, AUTOMATED 292 10^3/uL (150-450); RED BLOOD COUNT 5.03 10^6/uL (4.30-6.10); WHITE BLOOD COUNT 14.8 10^3/uL (4.0-10.0)
[2024-05-26 10:03] LABS: BLOOD UREA NITROGEN 15 MG/DL (9-23); CARBON DIOXIDE LEVEL 21 MMOL/L (20-31); CHLORIDE LEVEL 108 MMOL/L (98-107); CREATININE FOR GFR 0.74 MG/DL (0.70-1.30); GLOMERULAR FILTRATION RATE > 60.0 (>56); GLUCOSE, FASTING 95 MG/DL (60-100); POTASSIUM SERUM 4.8 MMOL/L (3.5-5.1); SODIUM LEVEL 136 MMOL/L (136-145)
[2024-05-26] MEDS: DOXYCYCLINE HYCLATE 100MG TABLET PO ONE (10:22)
[2024-05-26] MEDS: cefTRIAXone SOD 1 GM in DEXTROSE 5% (D5W) MINI-BAG/ADV 50 ML IV ONE (10:23)
[2024-05-26] MEDS ORDERED: PRED10TA2 PO (12:16)
[2024-05-26] MEDS ORDERED: CEFD300C PO (12:16)
[2024-05-26] MEDS ORDERED: DOXY100C82 PO (12:16)
[2024-05-26 12:55] VITALS: BP 121/68; TEMP 98.7; O2SAT 91
[2024-05-27] MEDS ORDERED: BACL1TAB9 PO (15:06)
[2024-05-27] MEDS ORDERED: FERRTAB6 PO (15:06)
[2024-05-27] MEDS ORDERED: FLUT15.820 NARES (15:06)
[2024-05-27] MEDS ORDERED: PROBCAP14 PO (15:06)
== END 2024-05-26 12:55 | disposition home or self-care (01) ==
LOC: M ED 08:39
DX: J18.9 Pneumonia, unspecified organism (principal); B34.8 Other viral infections of unspecified site; I25.10 Atherosclerotic heart disease of native coronary artery without angina pectoris; I25.2 Old myocardial infarction; I10 Essential (primary) hypertension; E78.5 Hyperlipidemia, unspecified; K21.9 Gastro-esophageal reflux disease without esophagitis; J44.9 Chronic obstructive pulmonary disease, unspecified; Z95.5 Presence of coronary angioplasty implant and graft; F17.200 Nicotine dependence, unspecified, uncomplicated; Z79.82 Long term (current) use of aspirin; Z79.899 Other long term (current) drug therapy; Z88.6 Allergy status to analgesic agent; Z88.8 Allergy status to other drugs, medicaments and biological substances

== ENCOUNTER 2024-05-27 12:31 | Inpatient (IN) | payer MEDICARE, MEDICAID ==
[~2024-05-27] VITALS: Ht 177.8 cm; Wt 107.7 kg
[~2024-05-27 12:31] MED LIST changes: +CEFD300C PO; +DOXY100C82 PO
[2024-05-27] MEDS: IPRATROPIUM 0.5MG/ALBUTEROL 2.5MG INH SOL UD 3ML (DUONEB) NEB PRN (14:08)
[2024-05-27 14:32] LABS: BASO % 0.1 % (0.0-1.0); EOS % 0.1 % (0.0-3.0); HEMATOCRIT 39.7 % (42.0-52.0); HEMOGLOBIN 12.9 g/dl (13.5-17.5); LYMPH # 0.7 10^3/uL (1.5-5.0); LYMPH % 4.3 % (24.0-44.0); MEAN CORPUSCULAR HEMOGLOBIN 25.9 pg (27.0-33.0); MEAN CORPUSCULAR HGB CONC 32.5 g/dl (32.0-36.5); MEAN CORPUSCULAR VOLUME 79.7 fl (80.0-96.0); MONO # 0.3 10^3/uL (0.0-0.8); MONO % 2.1 % (2.0-8.0); NEUTROPHILS # 13.9 10^3/uL (1.5-8.5); NEUTROPHILS % 92.7 % (36.0-66.0); RED BLOOD COUNT 4.98 10^6/uL (4.30-6.10)
[2024-05-27] MEDS ORDERED: FERRTAB6 PO (15:06)
[2024-05-27] MEDS ORDERED: BACL1TAB9 PO (15:06)
[2024-05-27] MEDS ORDERED: PROBCAP14 PO (15:06)
[2024-05-27] MEDS ORDERED: FLUT15.820 NARES (15:06)
[2024-05-27 15:07] LABS: ALBUMIN 2.8 G/DL (3.2-5.2); ALKALINE PHOSPHATASE 65 U/L (46-116); ALT/SGPT 17 U/L (7.0-40); AST/SGOT 45 U/L (<34); BILIRUBIN,DIRECT 0.2 MG/DL (<0.4); BILIRUBIN,TOTAL 0.5 MG/DL (0.3-1.2); BLOOD UREA NITROGEN 19 MG/DL (9-23); CALCIUM LEVEL 9.4 MG/DL (8.5-10.1); CARBON DIOXIDE LEVEL 21 MMOL/L (20-31); CHLORIDE LEVEL 110 MMOL/L (98-107); CREATININE FOR GFR 0.74 MG/DL (0.70-1.30); GLOMERULAR FILTRATION RATE > 60.0 (>56); GLUCOSE, FASTING 126 MG/DL (60-100); POTASSIUM SERUM 4.6 MMOL/L (3.5-5.1); SODIUM LEVEL 136 MMOL/L (136-145); TOTAL PROTEIN 7.2 G/DL (5.7-8.2)
[2024-05-27] MEDS ORDERED: HOME MED LIST COMPLETE! XX SCH (15:10)
[2024-05-27 15:14] LABS: CPK CREATINE PHOSPHOKINASE 349 U/L (46-171); MB/CK RELATIVE INDEX 2.29 (< OR =4)
[2024-05-27] MEDS ORDERED: ACETAMINOPHEN 325 MG TAB PO PRN (15:20)
[2024-05-27] MEDS ORDERED: MOM 30ML SUSPENSION UDC PO PRN (15:20)
[2024-05-27] MEDS ORDERED: MAALOX 30 ML SUSP *UDC PO PRN (15:20)
[2024-05-27 15:29] LABS: PLATELET COUNT, AUTOMATED 290 10^3/uL (150-450)
[2024-05-27] MEDS ORDERED: ISOVUE-370 76% 100ML VIAL As Ordered ONE (15:35)
[2024-05-27 15:59] LABS: PROCALCITONIN 0.27 ng/ml
[2024-05-27] MEDS: methylPREDNISolone 40MG 1ML VIAL IV SCH (16:00)
[2024-05-27] MEDS: cefTRIAXone SOD 1 GM in DEXTROSE 5% (D5W) MINI-BAG/ADV 50 ML IV SCH (16:00)
[2024-05-27 16:58] LABS: CK-MB VALUE MASS 7.9 NG/ML (<3.6)
[2024-05-27 16:59] LABS: MB/CK RELATIVE INDEX 2.33 (< OR =4)
[2024-05-27] MEDS: AZITHROMYCIN INJ 500 MG, VIAL MATE ADAPTER 1 EACH in NS 250 ML IV SCH (17:23)
[2024-05-27] MEDS: FUROSEMIDE 40MG/4ML VIAL IV ONE (19:33)
[2024-05-27 21:23] VITALS: BP 118/73; TEMP 98.5; O2SAT 94
[2024-05-27] MEDS: DULoxetine 30MG CAPSULE (CYMBALTA) PO SCH (21:29)
[2024-05-27] MEDS: DOCUSATE SODIUM 100MG CAPSULE PO SCH (21:29)
[2024-05-27] MEDS: GABAPENTIN 300 MG CAP PO SCH (21:30)
[2024-05-27] MEDS: MAGNESIUM OXIDE 400MG TAB (MAG-OX) PO SCH (21:30)
[2024-05-27] MEDS: PANTOPRAZOLE 40MG TAB (PROTONIX) PO SCH (21:30)
[2024-05-27] MEDS: BACLOFEN 10 MG TAB PO PRN (21:36)
[2024-05-27 23:31] VITALS: BP 119/70; TEMP 97.7; O2SAT 89
[2024-05-28] VITALS (8 sets, daily range): BP systolic 114–130; BP diastolic 59–82; PULSE 80; TEMP 97.8–98.6; O2SAT 91–98
[2024-05-28] MEDS: FLUoxetine 20MG CAP PO SCH (08:47)
[2024-05-28] MEDS: ATORVASTATIN 20 MG TAB PO SCH (08:47)
[2024-05-28] MEDS: LACTOBACILLUS ACIDOPHILUS CAP (BACID) PO SCH (08:47)
[2024-05-28] MEDS: GABAPENTIN 400MG CAP PO SCH (08:48)
[2024-05-28] MEDS: ASPIRIN 81MG ENTERIC TABLET PO SCH (08:48)
[2024-05-28] MEDS: EZETIMIBE 10MG TABLET (ZETIA) PO SCH (08:49)
[2024-05-28] MEDS ORDERED: FLUoxetine 20MG CAP PO SCH (09:00)
[2024-05-28] MEDS ORDERED: FUROSEMIDE 20 MG TAB PO SCH (09:00)
[2024-05-28 09:50] LABS: BASO % 0.1 % (0.0-1.0); HEMATOCRIT 43.7 % (42.0-52.0); HEMOGLOBIN 14.2 g/dl (13.5-17.5); LYMPH % 5.8 % (24.0-44.0); MEAN CORPUSCULAR HEMOGLOBIN 25.9 pg (27.0-33.0); MEAN CORPUSCULAR HGB CONC 32.5 g/dl (32.0-36.5); MEAN CORPUSCULAR VOLUME 79.6 fl (80.0-96.0); MONO # 0.9 10^3/uL (0.0-0.8); MONO % 5.1 % (2.0-8.0); NEUTROPHILS % 88.5 % (36.0-66.0); RED BLOOD COUNT 5.49 10^6/uL (4.30-6.10); WHITE BLOOD COUNT 16.9 10^3/uL (4.0-10.0)
[2024-05-28 09:52] LABS: PLATELET COUNT, AUTOMATED 401 10^3/uL (150-450)
[2024-05-28 10:06] LABS: BLOOD UREA NITROGEN 31 MG/DL (9-23); CALCIUM LEVEL 9.4 MG/DL (8.5-10.1); CARBON DIOXIDE LEVEL 24 MMOL/L (20-31); CHLORIDE LEVEL 108 MMOL/L (98-107); CREATININE FOR GFR 0.92 MG/DL (0.70-1.30); GLOMERULAR FILTRATION RATE > 60.0 (>56); GLUCOSE, FASTING 109 MG/DL (60-100); POTASSIUM SERUM 4.3 MMOL/L (3.5-5.1); SODIUM LEVEL 138 MMOL/L (136-145)
[2024-05-28] MEDS ORDERED: IPRATROPIUM 0.5MG/ALBUTEROL 2.5MG INH SOL UD 3ML (DUONEB) NEB PRN (10:55)
[2024-05-28] MEDS: IPRATROPIUM 0.5MG/ALBUTEROL 2.5MG INH SOL UD 3ML (DUONEB) NEB SCH (13:18)
[2024-05-28] MEDS: AZITHROMYCIN 250MG TABLET PO SCH (17:01)
[2024-05-28] MEDS: oxyCODONE 5MG TAB PO PRN (17:02)
[2024-05-28] MEDS: NITROGLYCERIN 0.4MG SUBL TABLET SL PRN (17:44)
[2024-05-28 19:06] LABS: CK-MB VALUE MASS 6.7 NG/ML (<3.6)
[2024-05-28 19:20] LABS: MB/CK RELATIVE INDEX 3.52 (< OR =4)
[2024-05-28 20:37] LABS: CK-MB VALUE MASS 6.3 NG/ML (<3.6)
[2024-05-28 20:41] LABS: MB/CK RELATIVE INDEX 3.46 (< OR =4)
[2024-05-28] MEDS: ENOXAPARIN 40MG/0.4ML SYRINGE (J1650 PER 10MG) SC SCH (21:13)
[2024-05-29 06:43] LABS: BASO % 0.1 % (0.0-1.0); HEMATOCRIT 42.4 % (42.0-52.0); HEMOGLOBIN 13.8 g/dl (13.5-17.5); LYMPH # 0.9 10^3/uL (1.5-5.0); MEAN CORPUSCULAR HEMOGLOBIN 26.4 pg (27.0-33.0); MEAN CORPUSCULAR HGB CONC 32.5 g/dl (32.0-36.5); MEAN CORPUSCULAR VOLUME 81.2 fl (80.0-96.0); MONO # 0.6 10^3/uL (0.0-0.8); MONO % 3.6 % (2.0-8.0); NEUTROPHILS # 13.8 10^3/uL (1.5-8.5); NEUTROPHILS % 89.6 % (36.0-66.0); PLATELET COUNT, AUTOMATED 319 10^3/uL (150-450); RED BLOOD COUNT 5.22 10^6/uL (4.30-6.10); WHITE BLOOD COUNT 15.4 10^3/uL (4.0-10.0)
[2024-05-29] MEDS ORDERED: PRED20TA PO (07:48)
[2024-05-29 08:47] LABS: BLOOD UREA NITROGEN 26 MG/DL (9-23); CALCIUM LEVEL 9.4 MG/DL (8.5-10.1); CARBON DIOXIDE LEVEL 23 MMOL/L (20-31); CHLORIDE LEVEL 108 MMOL/L (98-107); CREATININE FOR GFR 0.83 MG/DL (0.70-1.30); GLOMERULAR FILTRATION RATE > 60.0 (>56); GLUCOSE, FASTING 129 MG/DL (60-100); MAGNESIUM LEVEL 1.9 MG/DL (1.8-2.4); POTASSIUM SERUM 4.8 MMOL/L (3.5-5.1); SODIUM LEVEL 139 MMOL/L (136-145)
[2024-05-29 10:27] VITALS: BP 137/79; O2SAT 91
[2024-05-29 10:30] VITALS: O2SAT 91
[2024-05-29 10:33] VITALS: O2SAT 88
[2024-05-29 10:34] VITALS: O2SAT 85
[2024-05-29 10:35] VITALS: O2SAT 89
[2024-05-29 10:36] VITALS: O2SAT 91
== END 2024-05-29 14:17 | disposition home health service (06) | DRG 202 ==
LOC: M ED 12:31 → EDBD 12:31 → M ED INP 12:32 → M PCU 18:13 → OBSVTOIN 05-28 10:46
PROVIDERS: ADMIT Internal Medicine; ATTEND Internal Medicine
DX: J45.901 Unspecified asthma with (acute) exacerbation (principal); J15.9 Unspecified bacterial pneumonia; I50.32 Chronic diastolic (congestive) heart failure; B34.9 Viral infection, unspecified; I11.0 Hypertensive heart disease with heart failure; I25.10 Atherosclerotic heart disease of native coronary artery without angina pectoris; Z68.34 Body mass index [BMI] 34.0-34.9, adult; F39 Unspecified mood [affective] disorder; E66.9 Obesity, unspecified; K21.9 Gastro-esophageal reflux disease without esophagitis; Z95.5 Presence of coronary angioplasty implant and graft; F17.210 Nicotine dependence, cigarettes, uncomplicated; I25.2 Old myocardial infarction; Z95.2 Presence of prosthetic heart valve; Z79.899 Other long term (current) drug therapy; Z79.82 Long term (current) use of aspirin; Z88.8 Allergy status to other drugs, medicaments and biological substances; Z88.6 Allergy status to analgesic agent

== ENCOUNTER → 2024-06-08 | Outpatient (REF) | payer MEDICARE, MEDICAID ==
[~2024-06-08] MED LIST changes: +BACL1TAB9 PO; +FERRTAB6 PO; +FLUT15.820 NARES; +PRED20TA PO; +PROBCAP14 PO
[2024-06-08 19:44] LABS: BASO % 0.2 % (0.0-1.0); EOS % 0.1 % (0.0-3.0); HEMATOCRIT 45.5 % (42.0-52.0); HEMOGLOBIN 14.1 g/dl (13.5-17.5); LYMPH # 1.1 10^3/uL (1.5-5.0); LYMPH % 5.5 % (24.0-44.0); MEAN CORPUSCULAR HEMOGLOBIN 25.7 pg (27.0-33.0); MEAN CORPUSCULAR VOLUME 82.9 fl (80.0-96.0); MONO # 0.6 10^3/uL (0.0-0.8); MONO % 2.9 % (2.0-8.0); NEUTROPHILS # 17.6 10^3/uL (1.5-8.5); PLATELET COUNT, AUTOMATED 290 10^3/uL (150-450); RED BLOOD COUNT 5.49 10^6/uL (4.30-6.10); WHITE BLOOD COUNT 19.6 10^3/uL (4.0-10.0)
[2024-06-08 20:05] LABS: ALBUMIN 3.1 G/DL (3.2-5.2); ALKALINE PHOSPHATASE 60 U/L (40-129); ALT/SGPT 59 U/L (7.0-40); AST/SGOT 31 U/L (<34); BILIRUBIN,TOTAL 0.4 MG/DL (0.3-1.2); BLOOD UREA NITROGEN 19 MG/DL (9-23); CALCIUM LEVEL 9.5 MG/DL (8.5-10.1); CARBON DIOXIDE LEVEL 28 MMOL/L (20-31); CHLORIDE LEVEL 107 MMOL/L (98-107); CHOLESTEROL RISK RATIO 2.47 (<5); CREATININE FOR GFR 0.89 MG/DL (0.70-1.30); GLOMERULAR FILTRATION RATE > 60.0 (>56); GLUCOSE, FASTING 118 MG/DL (60-100); IRON (FE) 45 UG/DL (65-175); LDL CHOLESTEROL 62.2 MG/DL (<100); POTASSIUM SERUM 5.4 MMOL/L (3.5-5.1); SODIUM LEVEL 140 MMOL/L (136-145); TOTAL PROTEIN 6.8 G/DL (5.7-8.2)
== END ==
LOC: M SFHCCLAY 11:26
PROVIDERS: ATTEND Family Medicine
DX: J18.9 Pneumonia, unspecified organism (principal); I10 Essential (primary) hypertension; D50.9 Iron deficiency anemia, unspecified

== ENCOUNTER 2024-06-10 13:42 | Emergency (ER) | payer MEDICARE, MEDICAID ==
[~2024-06-10] VITALS: Ht 177.8 cm; Wt 112.3 kg
[2024-06-10 17:11] LABS: BASO % 0.2 % (0.0-1.0); EOS % 0.3 % (0.0-3.0); HEMATOCRIT 40.8 % (42.0-52.0); HEMOGLOBIN 13.2 g/dl (13.5-17.5); LYMPH # 2.5 10^3/uL (1.5-5.0); LYMPH % 20.1 % (24.0-44.0); MEAN CORPUSCULAR HEMOGLOBIN 26.5 pg (27.0-33.0); MEAN CORPUSCULAR HGB CONC 32.4 g/dl (32.0-36.5); MEAN CORPUSCULAR VOLUME 81.8 fl (80.0-96.0); MONO # 0.6 10^3/uL (0.0-0.8); MONO % 4.7 % (2.0-8.0); NEUTROPHILS # 9.3 10^3/uL (1.5-8.5); NEUTROPHILS % 73.7 % (36.0-66.0); PLATELET COUNT, AUTOMATED 242 10^3/uL (150-450); RED BLOOD COUNT 4.99 10^6/uL (4.30-6.10); WHITE BLOOD COUNT 12.6 10^3/uL (4.0-10.0)
[2024-06-10 17:42] LABS: BLOOD UREA NITROGEN 16 MG/DL (9-23); CALCIUM LEVEL 8.7 MG/DL (8.5-10.1); CARBON DIOXIDE LEVEL 29 MMOL/L (20-31); CHLORIDE LEVEL 103 MMOL/L (98-107); CREATININE FOR GFR 0.81 MG/DL (0.70-1.30); GLOMERULAR FILTRATION RATE > 60.0 (>56); GLUCOSE, FASTING 81 MG/DL (60-100); POTASSIUM SERUM 5.8 MMOL/L (3.5-5.1); SODIUM LEVEL 136 MMOL/L (136-145)
[2024-06-10 18:09] VITALS: BP 128/79; TEMP 97.4; O2SAT 97
== END 2024-06-10 18:13 | disposition home or self-care (01) ==
LOC: M ED 13:42
DX: D72.829 Elevated white blood cell count, unspecified (principal); I10 Essential (primary) hypertension; I25.2 Old myocardial infarction; K21.9 Gastro-esophageal reflux disease without esophagitis; Z95.5 Presence of coronary angioplasty implant and graft; Z88.8 Allergy status to other drugs, medicaments and biological substances; Z88.6 Allergy status to analgesic agent; Z79.899 Other long term (current) drug therapy; F17.200 Nicotine dependence, unspecified, uncomplicated

== ENCOUNTER → 2024-06-12 | Outpatient (REF) | payer MEDICARE, MEDICAID ==
[2024-06-12 13:02] LABS: BASO % 0.3 % (0.0-1.0); EOS # 0.3 10^3/uL (0.0-0.5); EOS % 2.8 % (0.0-3.0); HEMATOCRIT 39.6 % (42.0-52.0); HEMOGLOBIN 12.5 g/dl (13.5-17.5); LYMPH # 2.5 10^3/uL (1.5-5.0); LYMPH % 25.2 % (24.0-44.0); MEAN CORPUSCULAR HEMOGLOBIN 26.4 pg (27.0-33.0); MEAN CORPUSCULAR HGB CONC 31.6 g/dl (32.0-36.5); MEAN CORPUSCULAR VOLUME 83.7 fl (80.0-96.0); MONO # 0.6 10^3/uL (0.0-0.8); MONO % 5.9 % (2.0-8.0); NEUTROPHILS # 6.5 10^3/uL (1.5-8.5); NEUTROPHILS % 65.5 % (36.0-66.0); PLATELET COUNT, AUTOMATED 249 10^3/uL (150-450); RED BLOOD COUNT 4.73 10^6/uL (4.30-6.10)
[2024-06-12 13:34] LABS: ALBUMIN 2.6 G/DL (3.2-5.2); ALKALINE PHOSPHATASE 51 U/L (40-129); ALT/SGPT 37 U/L (7.0-40); AST/SGOT 28 U/L (<34); BILIRUBIN,TOTAL 0.3 MG/DL (0.3-1.2); BLOOD UREA NITROGEN 14 MG/DL (9-23); CALCIUM LEVEL 8.7 MG/DL (8.5-10.1); CARBON DIOXIDE LEVEL 30 MMOL/L (20-31); CHLORIDE LEVEL 103 MMOL/L (98-107); CREATININE FOR GFR 0.87 MG/DL (0.70-1.30); GLOMERULAR FILTRATION RATE > 60.0 (>56); GLUCOSE, FASTING 72 MG/DL (60-100); SODIUM LEVEL 138 MMOL/L (136-145); TOTAL PROTEIN 5.7 G/DL (5.7-8.2)
== END ==
LOC: M SHH 12:20 → M SFHCCLAY 12:20
PROVIDERS: ATTEND Family Medicine
DX: I10 Essential (primary) hypertension (principal)

== ENCOUNTER → 2024-06-30 | Outpatient (REF) | payer MEDICARE, MEDICAID ==
[2024-06-30 11:22] LABS: BASO % 0.4 % (0.0-1.0); EOS # 0.2 10^3/uL (0.0-0.5); EOS % 2.8 % (0.0-3.0); HEMATOCRIT 39.7 % (42.0-52.0); HEMOGLOBIN 12.6 g/dl (13.5-17.5); LYMPH # 1.8 10^3/uL (1.5-5.0); LYMPH % 23.4 % (24.0-44.0); MEAN CORPUSCULAR HEMOGLOBIN 26.6 pg (27.0-33.0); MEAN CORPUSCULAR HGB CONC 31.7 g/dl (32.0-36.5); MEAN CORPUSCULAR VOLUME 83.8 fl (80.0-96.0); MONO # 0.7 10^3/uL (0.0-0.8); MONO % 8.6 % (2.0-8.0); NEUTROPHILS # 4.9 10^3/uL (1.5-8.5); NEUTROPHILS % 64.5 % (36.0-66.0); PLATELET COUNT, AUTOMATED 312 10^3/uL (150-450); RED BLOOD COUNT 4.74 10^6/uL (4.30-6.10); WHITE BLOOD COUNT 7.5 10^3/uL (4.0-10.0)
== END ==
LOC: M SFHCCLAY 09:14
PROVIDERS: ATTEND Family Medicine
DX: J18.9 Pneumonia, unspecified organism (principal)

== ENCOUNTER → 2024-07-16 | Outpatient (REF) | payer MEDICARE, MEDICAID | LOC: M SFHCCLAY 11:03 | PROVIDERS: ATTEND Family Medicine | DX: R19.7 Diarrhea, unspecified (principal) ==

== ENCOUNTER → 2024-07-28 | Outpatient (CLI) | payer MEDICARE, MEDICAID ==
[~2024-07-28] MED LIST changes: +GASTROGRAFIN SOLUTION 30ML As Ordered ONE; +ISOVUE-370 76% 100ML VIAL As Ordered ONE
== END ==
LOC: M RAD 12:41
PROVIDERS: ATTEND Family Medicine
DX: K43.9 Ventral hernia without obstruction or gangrene (principal); R10.13 Epigastric pain; R91.8 Other nonspecific abnormal finding of lung field; Z98.0 Intestinal bypass and anastomosis status; M16.0 Bilateral primary osteoarthritis of hip; Z90.49 Acquired absence of other specified parts of digestive tract
CPT/HCPCS: 74177; Q9963; Q9967

== ENCOUNTER → 2024-08-26 | Outpatient (CLI) | payer MEDICARE, MEDICAID ==
[~2024-08-26] MED LIST changes: -GASTROGRAFIN SOLUTION 30ML As Ordered ONE; -ISOVUE-370 76% 100ML VIAL As Ordered ONE
== END ==
LOC: M SOG 07:53
PROVIDERS: ATTEND Orthopaedic Surgery
DX: M25.552 Pain in left hip (principal); M16.0 Bilateral primary osteoarthritis of hip

== ENCOUNTER 2024-09-22 09:56 | Day surgery (SDC) | payer MEDICARE, MEDICAID ==
[~2024-09-22] VITALS: Ht 175.3 cm; Wt 116.2 kg
[~2024-09-22 09:56] MED LIST changes: +DULO1CAP6 PO; +FERROCITE PO; +MAGN400T35 PO
[2024-09-22] MEDS ORDERED: NS (Normal Saline) 0.9% 1,000 ML IV SCH ×2 (10:55→13:45)
[2024-09-22] MEDS ORDERED: dexmedeTOMIDine (4MCG/ML)200MCG/50ML BTL (PRECEDEX) As Ordered ONE (12:20)
[2024-09-22] MEDS ORDERED: MIDAZOLAM INJ 2MG/2ML VIAL As Ordered ONE (12:20)
[2024-09-22] MEDS ORDERED: KETAMINE HCL 200MG/20ML VIAL As Ordered ONE (12:20)
[2024-09-22] MEDS ORDERED: LIDOCAINE 2% 100MG/5ML SDV (FOR ANES.) As Ordered ONE (12:20)
[2024-09-22] MEDS ORDERED: ACETAMINOPHEN 1000MG/100ML IV BAG As Ordered ONE (12:20)
[2024-09-22] MEDS ORDERED: fentaNYL 100 MCG/2 ML INJECTION As Ordered ONE (12:20)
[2024-09-22] MEDS ORDERED: METOCLOPRAMIDE INJ 10MG/2ML VIAL As Ordered ONE (12:20)
[2024-09-22] MEDS ORDERED: propofoL 200 MG/20 ML VIAL As Ordered ONE (12:20)
[2024-09-22] MEDS ORDERED: ONDANSETRON 4MG 2ML VIAL As Ordered ONE (12:20)
[2024-09-22] MEDS: ceFAZolin 2 GM/D5W 50 ML IV BAG As Ordered ONE (12:25)
[2024-09-22] MEDS: CIPRODEX OTIC SUSP 7.5ML As Ordered ONE (12:56)
[2024-09-22] MEDS: EPINEPHrine INJ 1 MG/ML 1ML AMP As Ordered ONE (12:57)
[2024-09-22] MEDS: LIDOCAINE W/EPINEPHRINE 1% 20ML VIAL As Ordered ONE (13:17)
[2024-09-22] MEDS: EPINEPHrine 1MG/ML INJ 30ML MD-VIAL As Ordered ONE (13:17)
[2024-09-22] MEDS ORDERED: fentaNYL 100 MCG/2 ML INJECTION IV PRN (13:45)
[2024-09-22] MEDS ORDERED: ONDANSETRON 4MG 2ML VIAL IV PRN (13:45)
[2024-09-22] MEDS: oxyCODONE 5MG TAB PO PRN (14:49)
[2024-09-22] MEDS: HYDROMORPHONE HCL 0.5 MG/ 0.5 ML SYRINGE IV PRN (14:49)
[2024-09-22 15:20] VITALS: BP 125/82; TEMP 95.6; O2SAT 97
== END 2024-09-22 15:40 | disposition home or self-care (01) ==
LOC: M SDC 09:56
PROVIDERS: ATTEND Otolaryngology
DX: H72.01 Central perforation of tympanic membrane, right ear (principal); I10 Essential (primary) hypertension; I25.2 Old myocardial infarction; I25.10 Atherosclerotic heart disease of native coronary artery without angina pectoris; J96.90 Respiratory failure, unspecified, unspecified whether with hypoxia or hypercapnia; M54.2 Cervicalgia; M54.50 Low back pain, unspecified; F19.10 Other psychoactive substance abuse, uncomplicated; G90.511 Complex regional pain syndrome I of right upper limb; E78.5 Hyperlipidemia, unspecified; Z88.8 Allergy status to other drugs, medicaments and biological substances; Z98.61 Coronary angioplasty status; Z96.82 Presence of neurostimulator; Z79.82 Long term (current) use of aspirin; Z79.899 Other long term (current) drug therapy; F12.10 Cannabis abuse, uncomplicated; F17.210 Nicotine dependence, cigarettes, uncomplicated
CPT/HCPCS: 20922; 69631; J0131; J0171; J0690; J1100; J1171; J2250; J2405; J2765; J3010

== ENCOUNTER → 2024-11-24 | Outpatient (CLI) | payer MEDICARE, MEDICAID ==
[~2024-11-24] MED LIST changes: +DOXY-442 PO; -DOXY100C82 PO; +ISOVUE-370 76% 100ML VIAL ONE
== END ==
LOC: M PLAIMG 13:07
PROVIDERS: ATTEND Surgery
DX: K43.5 Parastomal hernia without obstruction or gangrene (principal); N28.1 Cyst of kidney, acquired; I70.0 Atherosclerosis of aorta; Q79.59 Other congenital malformations of abdominal wall
CPT/HCPCS: 74177; Q9967

== ENCOUNTER → 2025-06-15 | Outpatient (REF) | payer MEDICARE, MEDICAID ==
[~2025-06-15] MED LIST changes: -EZET10TA21 PO; +EZET10TA57 PO; +FERR300L12 PO; -FERR5MLUD PO; -ISOVUE-370 76% 100ML VIAL ONE; +NALO25TA PO; +ZOLP10TA11 PO; -ZOLP10TA2 PO
[2025-06-15 11:56] LABS: PLATELET COUNT, AUTOMATED 264 10^3/uL (150-450)
[2025-06-15 11:57] LABS: APPEARANCE, URINE CLEAR (CLEAR); BACTERIA, URINE AUTO NEGATIVE (NEGATIVE); BILIRUBIN, URINE AUTO NEGATIVE (NEGATIVE); BLOOD, URINE BLOOD NEGATIVE (NEGATIVE); GLUCOSE, URINE (UA) AUTO NEGATIVE (NEGATIVE); KETONE, URINE AUTO TRACE mg/dL (NEGATIVE); LEUKOCYTE ESTERASE, URINE AUTO NEGATIVE (NEGATIVE); MUCUS, URINE SMALL (NEGATIVE); NITRITE, URINE AUTO NEGATIVE (NEGATIVE); PROTEIN, URINE AUTO 1+ mg/dL (NEGATIVE); RBC, URINE AUTO 1 /HPF (0-3); SPECIFIC GRAVITY URINE AUTO 1.038 (1.002-1.035); SQUAMOUS EPITHELIAL CELL UR AU 0 /HPF (0-6); UROBILINOGEN, URINE AUTO 0.2 mg/dL (0.0-2.0); WBC, URINE AUTO 1 /HPF (0-3)
[2025-06-15 12:16] LABS: ESTIMATED AVERAGE GLUCOSE 105.0 MG/DL (60-110)
[2025-06-15 12:18] LABS: INR 0.88
[2025-06-15 12:25] LABS: ALT/SGPT 18 U/L (7.0-40); AST/SGOT 23 U/L (<34); CALCIUM LEVEL 8.6 MG/DL (8.5-10.1); CARBON DIOXIDE LEVEL 27 MMOL/L (20-31); CHLORIDE LEVEL 108 MMOL/L (98-107); CHOLESTEROL LEVEL 114 MG/DL (<200); CHOLESTEROL RISK RATIO 3.41 (<5); CREATININE FOR GFR 0.99 MG/DL (0.70-1.30); GLOMERULAR FILTRATION RATE > 90.0 (>56); IRON (FE) 57 UG/DL (65-175); LDL CHOLESTEROL 54.4 MG/DL (<100); MAGNESIUM LEVEL 1.8 MG/DL (1.8-2.4); NON-HDL-C 80.6 MG/DL; PERCENT SATURATION 16.5 % (19.7-50.0); POTASSIUM SERUM 4.8 MMOL/L (3.5-5.1); SODIUM LEVEL 139 MMOL/L (136-145); TRIGLYCERIDES LEVEL 131 MG/DL (<150)
== END ==
LOC: M SFHCCLAY 09:44
PROVIDERS: ATTEND Family Medicine
DX: Z01.818 Encounter for other preprocedural examination (principal); I10 Essential (primary) hypertension; D50.9 Iron deficiency anemia, unspecified; R73.01 Impaired fasting glucose; M79.10 Myalgia, unspecified site; Z79.899 Other long term (current) drug therapy